=== PATIENT | female | born 1945 | race Caucasian/White ===

== ENCOUNTER → 2017-04-23 | Day surgery (SDC) | payer OTHER ==
[2017-04-17 10:01] VITALS: BMI 42.0
[~2017-04-23] VITALS: Ht 157.5 cm; Wt 104.5 kg
[~2017-04-23] MED LIST: CALC0.5C2 PO; CARB25TA7 PO; CHOL100010 PO; CMD5 PO; DILT120T8 PO; DVN80 PO; ESCI10TA17 PO; FRS/40 PO; HYDR-4079 PO; LIDOCAINE HCL 2% 2 ML VIAL (20MG/ML) ONE; LORA-741 PO; LPT/40 PO; POTA20TA16 PO; PROPOFOL IV EMULSION 10 MG/ML 20 ML VIAL IV ONE; RALO60TA12 PO; SODIUM CHLORIDE 0.9% 500ML 500 ML IV ONE; WARF5TAB7 PO
[2017-04-23 10:31] VITALS: Ht 157.5 cm; Wt 104.5 kg
--- NOTE | 2017-04-23 10:51 | Endo History and Physical ---
History & Physical Date of Service: Apr 23, 2017. Chief Complaint: hx polyps Referring Physician: Dr. Baez History of Present Illness h/o polyps Past Surgical History Hx Cardiac Surgery: No Hx Internal Defibrillator: No Hx Pacemaker: No Hx Abdominal Surgery: No Hx of Implantable Prosthesis: No Hx Post-Op Nausea and Vomiting: No Hx Cancer Surgery: No Hx Thoracic Surgery: No Hx Orthopedic: No Hx Urinary Tract Surgery: No Family History None Social History Smoking Status: Never Smoker Hx Substance Use: No Hx Alcohol Use: No Allergies Coded Allergies: Pramipexole (Unverified Allergy, Unknown, HALLUCINATIONS, 04/23/17) Current Medications Reported Home Medications Medications Dose Route/Sig Max Daily Dose Days Date Category Dose Instructions [place] 10MG/325MG (Acetaminophen/Hydrocodone Bitart) Tab 1 Tab PO Q4H PRN 04/17/17 Reported PRN PAIN Vitamin D (Cholecalciferol) 1,000 Unit Tab 1 Tab PO BID 04/17/17 Reported Sinemet 25MG/250MG (Carbidopa-Levodopa) 1 Tab Tab 1 Tab PO TID 04/17/17 Reported Lipitor (Atorvastatin) 40 Mg Tab 2 Tabs PO HS 04/17/17 Reported Diovan (Valsartan) 80 Mg Tab 80 Mg PO NOON 04/17/17 Reported Cardizem (Diltiazem Hcl) 120 Mg Tab 1 Tab PO NOON 04/17/17 Reported Lasix (Furosemide) 40 Mg Tab 40 Mg PO NOON 04/17/17 Reported Klor-Con (Potassium Chloride) 20 Meq Tabcr 10 Meq PO NOON 04/17/17 Reported Rocaltrol (Calcitriol) 0.5 Mcg Cap 1 Tab PO NOON 04/17/17 Reported Lexapro (Escitalopram Oxalate) 10 Mg Tab 10 Mg PO QAM 04/17/17 Reported Evista (Raloxifene Hcl) 60 Mg Tab 60 Mg PO NOON 04/17/17 Reported Jantoven (Warfarin Sodium) 5 Mg Tab 0.5 Tab PO 6XWK 04/17/17 Reported SUN,TUES,WED,THURS,FRI,SAT Coumadin (Warfarin Sod) 5 Mg Tab 1 Tab PO Saturday04/17/17 Reported Ativan (Lorazepam) 0.5 Mg Tab 0.5 Mg PO BID 04/17/17 Reported Vital Signs Weight (Kilograms): 104.55 Height (Feet): 5 Height (Inches): 2 Date Time Temp Pulse Resp B/P (MAP) Pulse Ox O2 Delivery O2 Flow Rate FiO2 04/23/17 10:36 36.4 98 20 152/64 (93) 94 Room Air Physical Exam General Appearance: WD/WN, no apparent distress Assessment and Plan colonoscopy today
--- NOTE | 2017-04-23 11:31 | GI REPORT ---
Procedure Date: 04/23/2017 10:49 AM Procedure: Colonoscopy Indications: Surveillance: Personal history of adenomatous polyps on last colonoscopy 5 years ago Medicines: Propofol per Anesthesia Complications: No immediate complications. Estimated blood loss: Minimal. Estimated Blood Loss: Estimated blood loss was minimal. Procedure: Pre-Anesthesia Assessment: - Prior to the procedure, a History and Physical was performed, and patient medications, allergies and sensitivities were reviewed. The patient's tolerance of previous anesthesia was reviewed. - The risks and benefits of the procedure and the sedation options and risks were discussed with the patient. All questions were answered and informed consent was obtained. - Patient identification and proposed procedure were verified prior to the procedure by the physician and the nurse. The procedure was verified in the pre-procedure area in the procedure room. - Mental Status Examination: alert and oriented. Airway Examination: normal oropharyngeal airway and neck mobility. Respiratory Examination: clear to auscultation. CV Examination: normal. Abdominal Examination: bowel sounds present, abdomen soft and non-tender, no masses or organomegaly noted. - ASA Grade Assessment: III - A patient with severe systemic disease. After I obtained informed consent, the scope was passed under direct vision. Throughout the procedure, the patient's blood pressure, pulse, and oxygen saturations were monitored continuously. The On-site loaner was introduced through the anus and advanced to the terminal ileum. The colonoscopy was performed without difficulty. The patient tolerated the procedure well. The quality of the bowel preparation was good. Findings: The perianal and digital rectal examinations were normal. Pertinent negatives include normal sphincter tone and no palpable rectal lesions. The terminal ileum appeared normal. A 5 mm polyp was found in the transverse colon. The polyp was sessile. The polyp was removed with a cold snare. Resection and retrieval were complete. Verification of patient identification for the specimen was done by the physician and nurse using the patient's name and date. Estimated blood loss was minimal. A 3 mm polyp was found in the rectum. The polyp was sessile. The polyp was removed with a cold snare. Resection and retrieval were complete. Verification of patient identification for the specimen was done by the physician and nurse using the patient's name and date. Estimated blood loss was minimal. The retroflexed view of the distal rectum and anal verge was normal and showed no anal or rectal abnormalities. Impression: - The examined portion of the ileum was normal. - One 5 mm polyp in the transverse colon, removed with a cold snare. Resected and retrieved. - One 3 mm polyp in the rectum, removed with a cold snare. Resected and retrieved. - The distal rectum and anal verge are normal on retroflexion view. Recommendation: - Await pathology results. - Repeat colonoscopy for surveillance based on pathology results. - OK to resume Coumadin and aspirin this evening. - Return to referring physician as previously scheduled. - Discharge patient to home. Jennifer Jaramillo D.O. Jennifer Jaramillo, 04/23/2017 11:31:00 AM This report has been signed electronically. Note Initiated On: 04/23/2017 10:49 AM I attest to the content of the Intraoperative Record and orders documented therein, exceptions below
--- NOTE | 2017-04-23 11:32 | Discharge Instructions ---
Endoscopy Patient Instructions Date / Procedure(s) Performed Apr 23, 2017. Colonoscopy Allergy Information Coded Allergies: Pramipexole (Unverified Allergy, Unknown, HALLUCINATIONS, 04/23/17) Discharge Date / Findings Apr 23, 2017. 2 small polyps Medication Instructions Stopped Medication(s): stopped Coumadin 5 days ago Restart Stopped Medication(s): OK to resume all home medications as above Provider Instructions Activity Restrictions - No exercising or heavy lifting for 24 hours. - Do not drink alcohol the day of the procedure. - Do not drive a car or operate machinery until the day after the procedure. - Do not make any important decisions or sign important papers in 24 hours after the procedure. Following Day: - Return to full activity which may include returning to work/school. Diet Start your diet with liquids and light foods (jello, soup, juice, toast). Then eat your usual diet if not nauseated. Treatment For Common After Affects For mild abdominal pain, bloating, or excessive gas: - Rest - Eat lightly - Lie on right side Follow-Up Information Follow-up with Dr. Baez as scheduled Anesthesia Information What You Should Know You have had a procedure that required some medicine to reduce anxiety and discomfort. This treatment is called moderate sedation. After receiving the treatment, you may be sleepy, but you will be able to breathe on your own. The effects of the treatment may last for several hours. Follow these instructions along with Activity/Diet recommendations noted above: * Do NOT do anything where dizziness or clumsiness would be dangerous. * Rest quietly at home today, then you can be up and about tomorrow. * Have a responsible person stay with you the rest of today. * You may have had an I.V. today. If so, you may take the dressing off later today. Recommendations Call your doctor if: * Trouble breathing * Continuous vomiting for more than 24 hours * Temperature above 101 degrees * Severe abdominal pain or bloating * Pain not relieved by pain medicine ordered * There is increased drainage or redness from any incision * A large amount of rectal bleeding greater than 2-3 tablespoons. (If you had a polyp/s removed or have hemorrhoids, a small amount of blood - from the rectum is to be expected.) * You have any unanswered questions or concerns. IN THE EVENT OF A SERIOUS EMERGENCY, GO TO THE NEAREST EMERGENCY ROOM Your discharge instructions were prepared by provider Jennifer Jaramillo. Patient Instructions Signature Page Gabrielle Liao Patient (or Guardian) Signature/Date: I have read and understand the instructions given to me by my caregivers. Caregiver/RN/Doctor Signature/Date: The above-named patient and/or guardian has received patient instructions on this date. + Original Patient Signature Page (only) stays with chart. Please make copy for patient.
--- NOTE | 2017-04-23 11:49 | Anesthesiology Progress Note ---
Anesthesia Post Op Note Date & Time Apr 23, 2017 at 11:48 Vital Signs Pain Intensity: 0 Vital Signs Past 12 Hours Date Time Temp Pulse Resp B/P (MAP) Pulse Ox O2 Delivery O2 Flow Rate FiO2 04/23/17 11:27 82 16 127/65 (85) 97 Room Air 04/23/17 10:36 36.4 98 20 152/64 (93) 94 Room Air Notes Mental Status: alert / awake / arousable, participated in evaluation Pt Amnestic to Procedure: Yes Nausea / Vomiting: adequately controlled Pain: adequately controlled Airway Patency, RR, SpO2: stable & adequate BP & HR: stable & adequate Hydration State: stable & adequate Anesthetic Complications: no major complications apparent
[2017-04-23 11:57] VITALS: BP 156/90; PULSE 86; O2SAT 96
== END | disposition home or self-care (01) ==
LOC: C.GI 10:08
PROVIDERS: ATTEND Internal Medicine
DX: Z12.11 Encounter for screening for malignant neoplasm of colon (principal); D12.3 Benign neoplasm of transverse colon; D12.8 Benign neoplasm of rectum; Z86.010 Personal history of colon polyps; Z79.01 Long term (current) use of anticoagulants; Z79.899 Other long term (current) drug therapy

== ENCOUNTER 2017-06-11 11:51 | Emergency (ER) | payer OTHER ==
[~2017-06-11] VITALS: Ht 157.5 cm; Wt 105.0 kg
[~2017-06-11 11:51] MED LIST changes: -LIDOCAINE HCL 2% 2 ML VIAL (20MG/ML) ONE; -PROPOFOL IV EMULSION 10 MG/ML 20 ML VIAL IV ONE; -RALO60TA12 PO; +RALO60TA30 PO; -SODIUM CHLORIDE 0.9% 500ML 500 ML IV ONE
[2017-06-11 11:57] VITALS: TEMP 37; Ht 157.5 cm; Wt 105.0 kg
[2017-06-11 12:35] LABS: BASO % 0.7 %; BASO ABS # 0.05 K/uL (0-0.2); COMPLETE YES; EOS % 0.4 %; HEMATOCRIT 45.5 % (37-47); IG% 0.1 %; LYMPH % 15.2 %; LYMPH ABS # 1.06 K/uL (1.2-3.4); MEAN CELL VOLUME 86.3 fL (80-100); MEAN CORPUSCULAR HEMOGLOBIN 28.5 pg (25-34); MEAN PLATELET VOLUME 10.5 fL (7.4-10.4); MONO % 9.6 %; PLATELET COUNT 160 K/uL (130-400); RED BLOOD COUNT 5.27 M/uL (4.2-5.4); WHITE BLOOD COUNT 6.98 K/uL (4.8-10.8)
[2017-06-11 12:45] LABS: INR 2.5 (0.9-1.1); PROTHROMBIN TIME (PATIENT) 27.3 SECONDS (9.0-12.0)
--- NOTE | 2017-06-11 12:50 | DIAGNOSTIC IMAGING REPORT ---
CT HEAD WITHOUT CONTRAST (CT) CLINICAL HISTORY: Head pain status post trauma COMPARISON STUDY: No previous studies for comparison. TECHNIQUE: Axial CT of the brain is performed from the vertex to the skull base. IV contrast was not administered for this examination. A dose lowering technique was utilized adhering to the principles of ALARA. CT DOSE: 1115.43 mGy.cm FINDINGS: No intra or extra-axial mass lesions are visualized. There is no CT evidence of acute cortical infarction. There is no evidence of midline shift. There is no acute hemorrhage. No calvarial fractures are visualized. There are patchy white matter hypodensities likely on a small vessel basis. There is no evidence of pathologic ventricular dilatation. There is no evidence of acute sinusitis IMPRESSION: No acute intracranial findings Electronically signed by: Sanket Roberts M.D. 06/11/2017 12:49 PM Dictated Date/Time: 06/11/2017 12:48 PM
[2017-06-11 12:51] LABS: BUN/CREATININE RATIO 14.3 (10-20); CALCIUM 9.2 mg/dl (8.5-10.1); CREATININE 1.47 mg/dl (0.60-1.20); POTASSIUM 4.1 mmol/L (3.5-5.1)
--- NOTE | 2017-06-11 13:17 | DIAGNOSTIC IMAGING REPORT ---
CERVICAL SPINE CT CT DOSE: HISTORY: fall hit head on coumadin TECHNIQUE: Multiaxial CT images of the cervical spine were performed and reformatted in the sagittal and coronal plane without the use of contrast. A dose lowering technique was utilized adhering to the principles of ALARA. COMPARISON: None. FINDINGS: No fractures. No subluxation. Prevertebral soft tissues and the C1-C2 interval are intact. No pneumothorax. Mild dextroscoliosis which may be positional. IMPRESSION: No fractures within the cervical spine. Electronically signed by: Carlos Vera M.D. 06/11/2017 1:16 PM Dictated Date/Time: 06/11/2017 1:05 PM
[2017-06-11] MEDS ORDERED: MoRPHine SULFATE 4 MG/ML 1 ML CARP\\VIAL IV STA (13:25)
--- NOTE | 2017-06-11 13:32 | DIAGNOSTIC IMAGING REPORT ---
LEFT KNEE 3 VIEWS CLINICAL HISTORY: Fall with left knee pain. FINDINGS: AP, crosstable lateral, and sunrise views of the left knee are obtained. No prior studies are available for comparison at the time of dictation. The skeletal structures are osteopenic. No fracture is seen. There is moderate tricompartmental degenerative joint space narrowing, greatest in the medial and patellofemoral compartments. There are large patellar enthesophytes as well as large marginal osteophytes. A small joint effusion is identified. The overlying soft tissues are within normal limits. IMPRESSION: 1. Small joint effusion with no radiographic evidence of left knee fracture. 2. Osteopenia and arthritic change as above. Electronically signed by: Omar Hill M.D. 06/11/2017 1:31 PM Dictated Date/Time: 06/11/2017 1:30 PM
--- NOTE | 2017-06-11 13:37 | DIAGNOSTIC IMAGING REPORT ---
PELVIS 1 OR 2 VIEW ROUTINE CLINICAL HISTORY: l knee pain pain COMPARISON: 03/26/2015 DISCUSSION: Moderate generalized degenerative change. No well-defined acute bony abnormality. No evidence for acetabular protrusion. Scoliosis of the lumbar spine. There is no evidence for soft tissue swelling. IMPRESSION: Considerable degenerative change. No acute process. The above report was generated using voice recognition software. It may contain grammatical, syntax or spelling errors. Electronically signed by: Cirilo Cotton M.D. 06/11/2017 1:35 PM Dictated Date/Time: 06/11/2017 1:35 PM
--- NOTE | 2017-06-11 13:43 | DIAGNOSTIC IMAGING REPORT ---
LEFT FEMUR 5 VIEWS HISTORY: Left leg pain. Fall. COMPARISON: None. FINDINGS: There is no fracture or dislocation. Soft tissues are unremarkable. Advanced degenerative changes within the left knee. IMPRESSION: No fracture or dislocation within the left femur. Electronically signed by: Carlos Vera M.D. 06/11/2017 1:42 PM Dictated Date/Time: 06/11/2017 1:35 PM
[2017-06-11 14:11] VITALS: BP 150/79; PULSE 98; O2SAT 96
--- NOTE | 2017-06-11 14:24 | EMERGENCY ROOM VISIT NOTE ---
History Report prepared by Hiral: Dianne Dial Under the Supervision of: Dr. Johnathon Encarnacion D.O. First contact with patient: 12:02 Chief Complaint: FALL Stated Complaint: FALL-LEFT KNEE PAIN History of Present Illness The patient is a 71 year old female who presents to the Emergency Room with complaints of a sudden fall that occurred around 0800 this morning. She currently rates her discomfort as an 8/10 in severity. The patient states that she fell up against chairs after loosing her balance. She states that she hit her head and her left hip. The patient states that she is on Coumadin for atrial fibrillation. She reports difficulty with weight bearing due to her pain. The patient reports left knee and left hip pain. She reports a history of Parkinson's. The patient denies headache, change in vision, fevers, neck pain, chest pain, shortness of breath, abdominal pain, nausea, vomiting, diarrhea, pain with urination, and melena. Source of History: patient Onset: 0800 this morning Position: other (global) Symptom Intensity: 8/10 Quality: other (fall) Timing: other (sudden) Note: Associated Symptoms: left knee pain, left hip pain Review of Systems See HPI for pertinent positives & negatives. A total of 10 systems reviewed and were otherwise negative. Past Medical & Surgical Medical Problems: (1) Atrial fibrillation (2) Diabetes (3) Hypertension (4) Parkinsons disease Family History Cancer Diabetes mellitus FH: heart disease Hypertension Social History Smoking Status: Never Smoker Smokeless Tobacco Use: No Alcohol Use: none Marital Status: Housing Status: lives with family Occupation Status: retired Current/Historical Medications Scheduled Atorvastatin (Lipitor), 2 TABS PO HS Calcitriol (Rocaltrol), 1 TAB PO NOON Carbidopa-Levodopa (Sinemet 25MG/250MG), 1 TAB PO QID Cholecalciferol (Vitamin D), 1 TAB PO BID Diltiazem Hcl (Cardizem), 1 TAB PO NOON Escitalopram (Lexapro), 10 MG PO QAM Furosemide (Lasix), 40 MG PO NOON Lorazepam (Ativan), 0.5 MG PO BID Potassium Ext Rel (Klor-Con), 10 MEQ PO NOON Raloxifene Hcl (Evista), 60 MG PO NOON Valsartan (Diovan), 80 MG PO NOON Warfarin Sod (Coumadin), 1 TAB PO SATURDAY Warfarin Sod (Jantoven), 0.5 TAB PO 6XWK Scheduled PRN Hydrocodone/Acetaminophen 10MG/325MG ([place] 10MG/325MG), 1 TAB PO Q4H PRN for Pain Allergies Coded Allergies: Pramipexole (Unverified Allergy, Unknown, HALLUCINATIONS, 06/11/17) Physical Exam Vital Signs Date Time Temp Pulse Resp B/P (MAP) Pulse Ox O2 Delivery O2 Flow Rate FiO2 06/11/17 14:11 98 20 150/79 96 06/11/17 13:33 92 20 130/73 93 Room Air 06/11/17 11:57 37.0 95 17 126/60 91 Room Air Physical Exam GENERAL: alert, well appearing, well nourished, no distress, non-toxic HEAD: Small contusion to posterior occiput. EYE EXAM: normal conjunctiva, PERRL and EOM's grossly intact OROPHARYNX: no exudate, no erythema, lips, buccal mucosa, and tongue normal and mucous membranes are moist EARS: TMs clear b/l NECK: supple, no nuchal rigidity, no adenopathy, non-tender CHEST: stable to compression anteriorly and posteriorly LUNGS: clear to auscultation. Normal chest wall mechanics HEART: no murmurs, S1 normal and S2 normal ABDOMEN: abdomen soft, non-tender, normo-active bowel sounds, no masses, no rebound or guarding. PELVIS: stable to compression anteriorly and posteriorly BACK: Back is symmetrical on inspection and there is no deformity, no midline tenderness, no CVA tenderness. UPPER EXTREMITIES: Abrasion to the left dorsal/medial forearm. full active and passive range of motion of all joints without tenderness to palpation LOWER EXTREMITIES: Mild bruising over right medial knee. full active and passive range of motion of all joints without tenderness to palpation with the exception of the right knee. able to take several steps with right leg/normally uses walker and scooter NEURO EXAM: Normal sensorium, cranial nerves II-XII grossly intact, normal speech, no gross weakness of arms, no gross weakness of legs. GCS: 15. Medical Decision & Procedures ER Provider Diagnostic Interpretation: Radiology results as stated below per my review and the radiologist's interpretation: CT HEAD WITHOUT CONTRAST (CT) CLINICAL HISTORY: Head pain status post trauma COMPARISON STUDY: No previous studies for comparison. TECHNIQUE: Axial CT of the brain is performed from the vertex to the skull base. IV contrast was not administered for this examination. A dose lowering technique was utilized adhering to the principles of ALARA. CT DOSE: 1115.43 mGy.cm FINDINGS: No intra or extra-axial mass lesions are visualized. There is no CT evidence of acute cortical infarction. There is no evidence of midline shift. There is no acute hemorrhage. No calvarial fractures are visualized. There are patchy white matter hypodensities likely on a small vessel basis. There is no evidence of pathologic ventricular dilatation. There is no evidence of acute sinusitis IMPRESSION: No acute intracranial findings Electronically signed by: Sanket Roberts M.D. 06/11/2017 12:49 PM Dictated Date/Time: 06/11/2017 12:[address] DOSE: HISTORY: fall hit head on coumadin TECHNIQUE: Multiaxial CT images of the cervical spine were performed and reformatted in the sagittal and coronal plane without the use of contrast. A dose lowering technique was utilized adhering to the principles of ALARA. COMPARISON: None. FINDINGS: No fractures. No subluxation. Prevertebral soft tissues and the C1-C2 interval are intact. No pneumothorax. Mild dextroscoliosis which may be positional. IMPRESSION: No fractures within the cervical spine. Electronically signed by: Carlos Vera M.D. 06/11/2017 1:16 PM Dictated Date/Time: 06/11/2017 1:05 PM PELVIS 1 OR 2 VIEW ROUTINE CLINICAL HISTORY: l knee pain pain COMPARISON: 03/26/2015 DISCUSSION: Moderate generalized degenerative change. No well-defined acute bony abnormality. No evidence for acetabular protrusion. Scoliosis of the lumbar spine. There is no evidence for soft tissue swelling. IMPRESSION: Considerable degenerative change. No acute process. The above report was generated using voice recognition software. It may contain grammatical, syntax or spelling errors. Electronically signed by: Cirilo Cotton M.D. 06/11/2017 1:35 PM Dictated Date/Time: 06/11/2017 1:35 PM LEFT KNEE 3 VIEWS CLINICAL HISTORY: Fall with left knee pain. FINDINGS: AP, crosstable lateral, and sunrise views of the left knee are obtained. No prior studies are available for comparison at the time of dictation. The skeletal structures are osteopenic. No fracture is seen. There is moderate tricompartmental degenerative joint space narrowing, greatest in the medial and patellofemoral compartments. There are large patellar enthesophytes as well as large marginal osteophytes. A small joint effusion is identified. The overlying soft tissues are within normal limits. IMPRESSION: 1. Small joint effusion with no radiographic evidence of left knee fracture. 2. Osteopenia and arthritic change as above. Electronically signed by: Omar Hill M.D. 06/11/2017 1:31 PM Dictated Date/Time: 06/11/2017 1:30 PM LEFT FEMUR 5 VIEWS HISTORY: Left leg pain. Fall. COMPARISON: None. FINDINGS: There is no fracture or dislocation. Soft tissues are unremarkable. Advanced degenerative changes within the left knee. IMPRESSION: No fracture or dislocation within the left femur. Electronically signed by: Carlos Vera M.D. 06/11/2017 1:42 PM Dictated Date/Time: 06/11/2017 1:35 PM Laboratory Results 06/11/17 12:25 Red Blood Count 5.27, Mean Corpuscular Volume 86.3, Mean Corpuscular Hemoglobin 28.5, Mean Corpuscular Hemoglobin Concent 33.0, Mean Platelet Volume 10.5, Neutrophils (%) (Auto) 74.0, Lymphocytes (%) (Auto) 15.2, Monocytes (%) (Auto) 9.6, Eosinophils (%) (Auto) 0.4, Basophils (%) (Auto) 0.7, Neutrophils # (Auto) 5.16, Lymphocytes # (Auto) 1.06, Monocytes # (Auto) 0.67, Eosinophils # (Auto) 0.03, Basophils # (Auto) 0.05 06/11/17 12:25 Test 06/11/17 12:25 White Blood Count 6.98 K/uL (4.8-10.8) Red Blood Count 5.27 M/uL (4.2-5.4) Hemoglobin 15.0 g/dL (12.0-16.0) Hematocrit 45.5 % (37-47) Mean Corpuscular Volume 86.3 fL (80-100) Mean Corpuscular Hemoglobin 28.5 pg (25-34) Mean Corpuscular Hemoglobin Concent 33.0 g/dl (32-36) Platelet Count 160 K/uL (130-400) Mean Platelet Volume 10.5 fL (7.4-10.4) Neutrophils (%) (Auto) 74.0 % Lymphocytes (%) (Auto) 15.2 % Monocytes (%) (Auto) 9.6 % Eosinophils (%) (Auto) 0.4 % Basophils (%) (Auto) 0.7 % Neutrophils # (Auto) 5.16 K/uL (1.4-6.5) Lymphocytes # (Auto) 1.06 K/uL (1.2-3.4) Monocytes # (Auto) 0.67 K/uL (0.11-0.59) Eosinophils # (Auto) 0.03 K/uL (0-0.5) Basophils # (Auto) 0.05 K/uL (0-0.2) RDW Standard Deviation 49.6 fL (36.4-46.3) RDW Coefficient of Variation 15.6 % (11.5-14.5) Immature Granulocyte % (Auto) 0.1 % Immature Granulocyte # (Auto) 0.01 K/uL (0.00-0.02) Prothrombin Time 27.3 SECONDS (9.0-12.0) Prothromb Time International Ratio 2.5 (0.9-1.1) Anion Gap 8.0 mmol/L (3-11) Est Creatinine Clear Calc Drug Dose 41.1 ml/min Estimated GFR () 41.8 Estimated GFR (Non- 36.0 BUN/Creatinine Ratio 14.3 (10-20) Calcium Level 9.2 mg/dl (8.5-10.1) Total Bilirubin 1.3 mg/dl (0.2-1) Direct Bilirubin 0.3 mg/dl (0-0.2) Aspartate Amino Transf (AST/SGOT) 23 U/L (15-37) Alanine Aminotransferase (ALT/SGPT) 9 U/L (12-78) Alkaline Phosphatase 75 U/L (45-117) Total Protein 7.2 gm/dl (6.4-8.2) Albumin 3.5 gm/dl (3.4-5.0) Lipase 173 U/L (73-393) Laboratory results per my review. Medications Administered Medications (Trade) Dose Ordered Sig/Tamela Route Start Time Stop Time Status Last Admin Dose Admin Morphine Sulfate (MoRPHine SULFATE INJ) 4 mg NOW STAT IV 06/11/17 13:25 06/11/17 13:26 DC 06/11/17 13:32 4 MG ED Course ED COURSE: Vital signs were reviewed and showed normal vitals The patients medical record was reviewed The above diagnostic studies were performed and reviewed. ED treatments and interventions as stated above. 1204: The patient was evaluated in room C3. A complete history and physical examination was performed. 1310: I reevaluated the patient and she is resting comfortably. 1325: I reevaluated the patient and she is still experiencing pain and requesting pain medications. Ordered Morphine Sulfate 4 mg IV. 1349: Upon reevaluation, the patient is resting comfortably.I discussed my findings with the patient and she understands and agrees with the treatment plan. Based on the patients age, coexisting illnesses, exam and lab findings the decision to treat as an outpatient was made. The patient remained stable while under my care. The patient appeared well at the time of discharge. Medical Decision Differential diagnoses include major intracranial, cervical, spinal, thoracic, abdominal, pelvic and neurologic injury. Fracture, contusion, sprain, strain, laceration, abrasions included as well. Patient is a 71-year-old female who presents to ER following a mechanical fall for left knee pain. Patient did hit her head as she is on Coumadin. CBC along with BMP, LFTs and lipase was unremarkable. T bili was slightly elevated at 1.3. No abdominal complaints. INR therapeutic at 2.5. CT head and cervical spine was negative. X-rays of the pelvis and left femur/knee were negative as well. Patient was able to take several steps with assistance which is close to her baseline. She was discharged follow-up as an outpatient as both family and patient wanted this requested to go home. Discussed with Pt concerning signs and symptoms to watch out for. Pt was instructed to follow up with their PCP and discussed with the patient their option to return to the ED at anytime for persistent or worsening symptoms. The appropriate anticipatory guidance and out- patient management, including indications for return to the emergency department , were explained at length to the patient and understood. Medication Reconcilliation Current Medication List: was personally reviewed by me Blood Pressure Screening Patient's blood pressure: Normal blood pressure Blood pressure disposition: Did not require urgent referral Impression Primary Impression: Fall Additional Impression: Contusion of multiple sites Scribe Attestation The scribe's documentation has been prepared under my direction and personally reviewed by me in its entirety. I confirm that the note above accurately reflects all work, treatment, procedures, and medical decision making performed by me. Departure Information Dispostion Home / Self-Care Referrals Titi Baez D.O. (PCP) Forms HOME CARE DOCUMENTATION FORM, IMPORTANT VISIT INFORMATION Patient Instructions ED Contusion Lower Ext, My [facility] Additional Instructions Please follow up with your primary care doctor with in the next 24 hours. Any worsening of your symptoms, please return to the ED immediately. This includes any fevers greater than 100.4, worsening pain, chest pain, shortness breath, persistent nausea, vomiting, unable to eat or drink, or any other concerning signs or symptoms from your standpoint. Also if you have any weakness, worsening pain or continued pain over the next 3- 5 days please have repeat x-rays as there is always a chance of missing a fracture. You were given medications during this visit that will inhibit your ability to drive, operate machinery and work. Please do NOT drive, operate machinery, drink alcohol or work for the next 12hrs. Problem Qualifiers Primary Impression: Fall Encounter type: initial encounter Qualified Codes: W19.XXXA - Unspecified fall, initial encounter
== END 2017-06-11 14:11 | disposition home or self-care (01) ==
LOC: C.EDB 11:52 → C.EDC 14:11
DX: S80.01XA Contusion of right knee, initial encounter (principal); S09.90XA Unspecified injury of head, initial encounter; W18.09XA Striking against other object with subsequent fall, initial encounter; M25.562 Pain in left knee; M25.462 Effusion, left knee; R51 Headache; I10 Essential (primary) hypertension; I48.91 Unspecified atrial fibrillation; E11.9 Type 2 diabetes mellitus without complications; G20 Parkinson's disease; Z79.01 Long term (current) use of anticoagulants; Z79.899 Other long term (current) drug therapy; Z88.8 Allergy status to other drugs, medicaments and biological substances; Z80.9 Family history of malignant neoplasm, unspecified; Z83.3 Family history of diabetes mellitus; Z82.49 Family history of ischemic heart disease and other diseases of the circulatory system

== ENCOUNTER 2017-08-04 12:57 | Emergency (ER) | payer OTHER ==
[~2017-08-04] VITALS: Ht 157.5 cm; Wt 105.0 kg
[2017-08-04 13:04] VITALS: TEMP 36.7; Ht 157.5 cm; Wt 105.0 kg
[2017-08-04] MEDS ORDERED: ONDANSETRON INJ 2 MG/ML 2 ML VIAL IV STA (14:10)
[2017-08-04] MEDS ORDERED: SODIUM CHLORIDE 0.9% 1000ML 1,000 ML IV STA (14:10)
[2017-08-04] MEDS ORDERED: MoRPHine SULFATE 4 MG/ML 1 ML CARP\\VIAL IV STA (14:10)
[2017-08-04 14:41] LABS: BASO % 0.4 %; BASO ABS # 0.03 K/uL (0-0.2); EOS % 0.4 %; EOS ABS # 0.03 K/uL (0-0.5); HEMATOCRIT 49.5 % (37-47); HEMOGLOBIN 16.4 g/dL (12.0-16.0); IG# 0.02 K/uL (0.00-0.02); LYMPH % 18.3 %; LYMPH ABS # 1.47 K/uL (1.2-3.4); MEAN CORPUSCULAR HEMOGLOBIN 28.8 pg (25-34); MEAN CORPUSCULAR HGB CONC 33.1 g/dl (32-36); MEAN PLATELET VOLUME 10.8 fL (7.4-10.4); NEUT % 70.7 %; NEUT ABS # 5.69 K/uL (1.4-6.5); PLATELET COUNT 183 K/uL (130-400); RED CELL DISTRIBUTION WIDTH CV 15.7 % (11.5-14.5); RED CELL DISTRIBUTION WIDTH SD 50.1 fL (36.4-46.3); WHITE BLOOD COUNT 8.04 K/uL (4.8-10.8)
[2017-08-04 14:49] LABS: INR 3.3 (0.9-1.1); PTT PATIENT 36.9 SECONDS (21.0-31.0)
[2017-08-04] MEDS ORDERED: DILT120C43 PO (14:52)
[2017-08-04] MEDS ORDERED: TIZA4CAP PO (14:52)
[2017-08-04 15:03] LABS: ALBUMIN 3.8 gm/dl (3.4-5.0); CALCIUM 9.1 mg/dl (8.5-10.1); CREATININE 1.18 mg/dl (0.60-1.20); POTASSIUM 3.6 mmol/L (3.5-5.1)
[2017-08-04 15:06] LABS: TOTAL PROTEIN 7.9 gm/dl (6.4-8.2)
[2017-08-04] MEDS ORDERED: OPTIRAY 320 IV PRN (15:45)
--- NOTE | 2017-08-04 15:59 | DIAGNOSTIC IMAGING REPORT ---
ABDOMEN AND PELVIS CT WITH IV CONTRAST CT DOSE: 890.27 mGy.cm HISTORY: Right lower quadrant abdominal pain. TECHNIQUE: Multiaxial CT images of the abdomen and pelvis were performed following the use of intravenous contrast. A dose lowering technique was utilized adhering to the principles of ALARA. COMPARISON STUDY: None. FINDINGS: Mild interstitial thickening at the lung bases which is likely chronic. No fractures within the visualized osseous structures. There are 2 hypodense lesions within the right hepatic lobe with the largest measuring 2 cm. These likely represent cysts. The the pancreas and left adrenal gland are unremarkable. A few small gallstones. No gallbladder wall thickening. A few subcentimeter hypodense lesions within the kidneys are too small to characterize but favor cysts. No hydronephrosis. Mild nodular thickening within the right adrenal gland. Punctate calcified granuloma within the spleen. No retroperitoneal lymphadenopathy. The bladder is unremarkable. The uterus and bilateral adnexa are within normal limits. Extensive colonic diverticulosis. No bowel wall thickening or obstruction. Normal appendix. Mild bilateral perinephric edema is likely chronic. IMPRESSION: 1. No bowel wall thickening or obstruction. 2. Normal appendix. 3. Colonic diverticulosis. 4. No hydronephrosis. 5. Cholelithiasis. No gallbladder wall thickening. Electronically signed by: Carlos Vera M.D. 08/04/2017 3:57 PM Dictated Date/Time: 08/04/2017 3:50 PM
[2017-08-04 16:39] VITALS: BP 166/105; PULSE 78; O2SAT 96
--- NOTE | 2017-08-04 17:34 | EMERGENCY ROOM VISIT NOTE ---
History Report prepared by Hiral: Jeyson Torre Under the Supervision of: Dr. Bonifacio Navarrete M.D. First contact with patient: 14:04 Chief Complaint: FLANK PAIN Stated Complaint: PAIN IN RIGHT SIDE History of Present Illness The patient is a 71 year old female who presents to the Emergency Room with complaints of persistent right lower abdominal pain starting around 0830 this morning which she describes as sharp. The patient denies any hematochezia, melena, chest pain, shortness of breath, cough, pain with urination, hematuria, nausea, and vomiting. She notes that she has a history of diabetes, hypertension , hyperlipidemia, and Parkinson's. The patient notes that she did not take her medications this morning. She reports that she has no history of abdominal surgeries in the past. The patient states that she is currently on Coumadin, and she denies any recent falls. She notes that she usually takes her medications at noon. Source of History: patient Onset: 0830 this morning Position: abdomen (RLQ) Quality: sharp Timing: other (persistent ) Associated Symptoms: No cough, No chest pain, No SOB, No nausea, No vomiting , No melena, No hematochezia, No urinary symptoms Review of Systems See HPI for pertinent positives and negatives. A total of ten systems were reviewed and were otherwise negative. Past Medical & Surgical Medical Problems: (1) Atrial fibrillation (2) Diabetes (3) Hypertension (4) Parkinsons disease Family History Cancer Diabetes mellitus FH: heart disease Hypertension Social History Smoking Status: Never Smoker Alcohol Use: none Marital Status: Housing Status: lives with family Occupation Status: retired Current/Historical Medications Scheduled Atorvastatin (Lipitor), 80 MG PO HS Calcitriol (Rocaltrol), 0.5 MCG PO NOON Carbidopa-Levodopa (Sinemet 25MG/250MG), 1 TAB PO QID Cholecalciferol (Vitamin D), 1,000 UNITS PO BID Diltiazem Hcl Coated Beads (Cartia Xt), 120 MG PO DAILY Escitalopram (Lexapro), 10 MG PO QAM Furosemide (Lasix), 40 MG PO NOON Lorazepam (Ativan), 0.5 MG PO BID Potassium Ext Rel (Klor-Con), 10 MEQ PO NOON Raloxifene Hcl (Evista), 60 MG PO NOON Tizanidine (Zanaflex), 4 MG PO BID Valsartan (Diovan), 80 MG PO NOON Warfarin Sod (Coumadin), 5 MG PO WK Warfarin Sod (Jantoven), 2.5 MG PO 6XWK Scheduled PRN Hydrocodone/Acetaminophen 10MG/325MG (Pearson 10MG/325MG), 1 TAB PO Q4H PRN for Pain Allergies Coded Allergies: Pramipexole (Unverified Allergy, Unknown, HALLUCINATIONS, 08/04/17) Physical Exam Vital Signs Date Time Temp Pulse Resp B/P (MAP) Pulse Ox O2 Delivery O2 Flow Rate FiO2 08/04/17 16:39 78 18 166/105 96 08/04/17 15:31 78 18 157/103 98 Room Air 08/04/17 14:27 90 148/104 94 Room Air 08/04/17 13:04 36.7 99 20 196/89 96 Room Air Physical Exam GENERAL: Awake, alert, well-appearing, in no distress HENT: Normocephalic, Atraumatic. no hemotympanum bilaterally, rachel sign negative bilaterally. Oropharynx unremarkable. EYES: Normal conjunctiva. Sclera non-icteric. PERRL bilaterally. EOMI bilaterally. NECK: Supple. No nuchal rigidity. FROM. No JVD. No C-spine tenderness. RESPIRATORY: Clear to auscultation. No wheezes, rhonchi or rales bilaterally. CARDIAC: Regular rate, normal rhythm. Extremities warm and well perfused. Equal palpable radial pulses to the bilateral upper extremities. Equal palpable DP pulses to the bilateral lower extremities. ABDOMEN: Pain on palpation of the right lower quadrant. Soft, non-distended. No rebound or guarding. No masses. Rovsing Negative. RECTAL: Deferred. MUSCULOSKELETAL: Chest examination reveals no tenderness. The back is symmetrical on inspection without obvious abnormality. There is no CVA tenderness to palpation. No joint edema. LOWER EXTREMITIES: Calves are equal size bilaterally and non-tender. No edema. No discoloration. NEURO: Tremor at baseline per the patient. Normal sensorium. No sensory or motor deficits noted. No pronator drift. No facial droop. No dysarthria. SKIN: No rash or jaundice noted. Medical Decision & Procedures ER Provider Diagnostic Interpretation: Radiology results as stated below per my review and radiologist interpretation: ABDOMEN AND PELVIS CT WITH IV CONTRAST CT DOSE: 890.27 mGy.cm HISTORY: Right lower quadrant abdominal pain. TECHNIQUE: Multiaxial CT images of the abdomen and pelvis were performed following the use of intravenous contrast. A dose lowering technique was utilized adhering to the principles of ALARA. COMPARISON STUDY: None. FINDINGS: Mild interstitial thickening at the lung bases which is likely chronic. No fractures within the visualized osseous structures. There are 2 hypodense lesions within the right hepatic lobe with the largest measuring 2 cm. These likely represent cysts. The the pancreas and left adrenal gland are unremarkable. A few small gallstones. No gallbladder wall thickening. A few subcentimeter hypodense lesions within the kidneys are too small to characterize but favor cysts. No hydronephrosis. Mild nodular thickening within the right adrenal gland. Punctate calcified granuloma within the spleen. No retroperitoneal lymphadenopathy. The bladder is unremarkable. The uterus and bilateral adnexa are within normal limits. Extensive colonic diverticulosis. No bowel wall thickening or obstruction. Normal appendix. Mild bilateral perinephric edema is likely chronic. IMPRESSION: 1. No bowel wall thickening or obstruction. 2. Normal appendix. 3. Colonic diverticulosis. 4. No hydronephrosis. 5. Cholelithiasis. No gallbladder wall thickening. Electronically signed by: Carlos Vera M.D. 08/04/2017 3:57 PM Dictated Date/Time: 08/04/2017 3:50 PM Laboratory Results 08/04/17 14:20 Red Blood Count 5.69, Mean Corpuscular Volume 87.0, Mean Corpuscular Hemoglobin 28.8, Mean Corpuscular Hemoglobin Concent 33.1, Mean Platelet Volume 10.8, Neutrophils (%) (Auto) 70.7, Lymphocytes (%) (Auto) 18.3, Monocytes (%) (Auto) 10.0, Eosinophils (%) (Auto) 0.4, Basophils (%) (Auto) 0.4, Neutrophils # (Auto ) 5.69, Lymphocytes # (Auto) 1.47, Monocytes # (Auto) 0.80, Eosinophils # (Auto ) 0.03, Basophils # (Auto) 0.03 08/04/17 14:20 Test 08/04/17 14:10 08/04/17 14:20 Urine Color YELLOW Urine Appearance CLEAR (CLEAR) Urine pH 7.0 (4.5-7.5) Urine Specific Riparius 1.017 (1.000-1.030) Urine Protein NEG (NEG) Urine Glucose (UA) NEG (NEG) Urine Ketones TRACE (NEG) Urine Occult Blood NEG (NEG) Urine Nitrite NEG (NEG) Urine Bilirubin NEG (NEG) Urine Urobilinogen NEG (NEG) Urine Leukocyte Esterase NEG (NEG) White Blood Count 8.04 K/uL (4.8-10.8) Red Blood Count 5.69 M/uL (4.2-5.4) Hemoglobin 16.4 g/dL (12.0-16.0) Hematocrit 49.5 % (37-47) Mean Corpuscular Volume 87.0 fL (80-100) Mean Corpuscular Hemoglobin 28.8 pg (25-34) Mean Corpuscular Hemoglobin Concent 33.1 g/dl (32-36) Platelet Count 183 K/uL (130-400) Mean Platelet Volume 10.8 fL (7.4-10.4) Neutrophils (%) (Auto) 70.7 % Lymphocytes (%) (Auto) 18.3 % Monocytes (%) (Auto) 10.0 % Eosinophils (%) (Auto) 0.4 % Basophils (%) (Auto) 0.4 % Neutrophils # (Auto) 5.69 K/uL (1.4-6.5) Lymphocytes # (Auto) 1.47 K/uL (1.2-3.4) Monocytes # (Auto) 0.80 K/uL (0.11-0.59) Eosinophils # (Auto) 0.03 K/uL (0-0.5) Basophils # (Auto) 0.03 K/uL (0-0.2) RDW Standard Deviation 50.1 fL (36.4-46.3) RDW Coefficient of Variation 15.7 % (11.5-14.5) Immature Granulocyte % (Auto) 0.2 % Immature Granulocyte # (Auto) 0.02 K/uL (0.00-0.02) Prothrombin Time 34.1 SECONDS (9.0-12.0) Prothromb Time International Ratio 3.3 (0.9-1.1) Activated Partial Thromboplast Time 36.9 SECONDS (21.0-31.0) Partial Thromboplastin Ratio 1.4 Anion Gap 6.0 mmol/L (3-11) Est Creatinine Clear Calc Drug Dose 51.2 ml/min Estimated GFR () 54.5 Estimated GFR (Non- 47.0 BUN/Creatinine Ratio 12.8 (10-20) Calcium Level 9.1 mg/dl (8.5-10.1) Total Bilirubin 1.1 mg/dl (0.2-1) Aspartate Amino Transf (AST/SGOT) 25 U/L (15-37) Alanine Aminotransferase (ALT/SGPT) 12 U/L (12-78) Alkaline Phosphatase 88 U/L (45-117) Total Protein 7.9 gm/dl (6.4-8.2) Albumin 3.8 gm/dl (3.4-5.0) Globulin 4.1 gm/dl (2.5-4.0) Albumin/Globulin Ratio 0.9 (0.9-2) Lipase 159 U/L (73-393) Laboratory results reviewed by me Medications Administered Medications (Trade) Dose Ordered Sig/Tamela Route Start Time Stop Time Status Last Admin Dose Admin Sodium Chloride 1,000 ml @ 125 mls/hr Q8H STAT IV 08/04/17 14:10 08/04/17 16:56 DC 08/04/17 14:28 125 MLS/HR Morphine Sulfate (MoRPHine SULFATE INJ) 4 mg NOW STAT IV 08/04/17 14:10 08/04/17 14:14 DC 08/04/17 14:28 4 MG Ondansetron HCl (Zofran Inj) 4 mg NOW STAT IV 08/04/17 14:10 08/04/17 14:14 DC 08/04/17 14:28 4 MG ED Course 1404: The patient was evaluated in room C4. A complete history and physical exam was performed. 1410: Zofran 4mg IV, Morphine Sulfate 4mg IV, Sodium Chloride 1000 ml @ 125 mls/ hr IV 1626: I reevaluated the patient, and her vital signs are stable. Her blood pressure has normalized after her pain was controlled. Repeat abdominal exam revealed no pain with palpation of the abdomen. Labs were within normal limits. INR was therapeutic. CT of the abdomen within normal limits. The patient will be discharged to follow up with her PCP. Return precautions were discussed with the patient and family and they were agreeable. All questions were answered, and written and verbal discharge instructions were given to the patient. Medical Decision repeat vital signs are stable. Her blood pressure has normalized after her pain was controlled w/ morphine. Repeat abdominal exam revealed no pain with palpation of the abdomen. Labs were within normal limits. INR was therapeutic. CT of the abdomen within normal limits. The patient will be discharged to follow up with her PCP. Return precautions were discussed with the patient and family and they were agreeable. All questions were answered, and written and verbal discharge instructions were given to the patient. Medication Reconcilliation Current Medication List: was personally reviewed by me Blood Pressure Screening Patient's blood pressure: Elevated blood pressure Blood pressure disposition: Referred to PCP Impression Primary Impression: Abdominal pain Scribe Attestation The scribe's documentation has been prepared under my direction and personally reviewed by me in its entirety. I confirm that the note above accurately reflects all work, treatment, procedures, and medical decision making performed by me. The chart was completed utilizing [employer] Speech voice recognition software. Grammatical errors, random word insertions, pronoun errors, and incomplete sentences are an occasional consequence of this system due to software limitations, ambient noise, and hardware issues. Any formal questions or concerns about the content, text, or information contained within the body of this dictation should be directly addressed to the physician for clarification. Departure Information Dispostion Home / Self-Care Referrals Titi Baez D.O. (PCP) Forms HOME CARE DOCUMENTATION FORM, IMPORTANT VISIT INFORMATION Patient Instructions My [facility]
== END 2017-08-04 16:43 | disposition home or self-care (01) ==
LOC: C.EDB 13:00 → C.EDC 16:43
DX: R10.31 Right lower quadrant pain (principal); E11.9 Type 2 diabetes mellitus without complications; I48.91 Unspecified atrial fibrillation; I10 Essential (primary) hypertension; G20 Parkinson's disease; Z79.01 Long term (current) use of anticoagulants; Z79.899 Other long term (current) drug therapy; Z80.9 Family history of malignant neoplasm, unspecified; Z83.3 Family history of diabetes mellitus; Z82.49 Family history of ischemic heart disease and other diseases of the circulatory system

== ENCOUNTER 2020-05-18 07:18 | Inpatient (IN) ==
--- NOTE | 2020-05-12 16:09 | Anesthesiology Consultation ---
Date of Service May 12, 2020 Assessment & Plan (1) Encounter for pre-operative examination: - Surgery was originally scheduled for 04/20. Rescheduled to 05/18/20.* - Per assessment on 05/12: Travel screen negative. No known COVID-19 positive contacts or current COVID-19 related symptoms. Surgeon arranging preop COVID testing (done 05/11 at surgeon's office). Awaiting results. - Cardiology office visit: 01/18/20: Patient seen by cardiology prior to lap jose (which was done 01/26/20 at [facility]). Per cardiology note: 01/21/20: "Stress test was negative for ischemia and did not suggest severe blockages. Overall heart function is normal. Findings do reflect longstanding atrial fibrillation and hypertension. No contraindications to proceeding with surgery as planned.. Lab work looks okay" - Check coags, BSG AM DOS - S/P lap cholecystecomy: 01/26/20: Grade 1 view, MAC#3, ETT 7 at [facility] - Comtan (entacapone) instructions: Hx Parkinson's on Comtan. Reviewed with Dr. Cunha- recommendation for patient to continue as directed perioperatively. Patient scheduled for left TKA (low likelihood of general anesthesia) but of note, studies have shown cases of post-op neuroleptic malignant syndrome with general anesthesia and recommendation for close monitoring post-op if general anesthesia used. Chart Review Chart Review: Acceptable Risk for Surgery and Patient NOT seen in Pre Admission Testing History Surgery Operation Date: 05/18/20 10:55 Proposed Procedures p L5-S1 Decompression and Fusion, Possible L4-L5, Spinal Cord Monitoring - Yehuda Marcelino DO Height/Weight Height: 5 ft 2 in Weight: 90.718 kg Allergies Allergy/AdvReac Type Severity Reaction Status Date / Time pramipexole AdvReac Unknown hallucinati Verified 05/12/20 13:59 ons Medications Home Medications Medication Instructions Recorded Confirmed Last Taken atorvastatin [Lipitor] 80 mg PO PM 01/21/20 05/12/20 01/25/20 21:00 calcitriol 0.5 mcg PO 1200 01/21/20 05/12/20 01/25/20 12:00 carbidopa-levodopa [Sinemet] 1 tab PO QID 01/21/20 05/12/20 01/25/20 21:00 cholecalciferol (vitamin D3) 25 mcg PO BID 01/21/20 05/12/20 01/25/20 12:00 [Vitamin D3] diltiazem HCl [Cardizem] 120 mg PO 1200 01/21/20 05/12/20 01/26/20 07:00 entacapone [Comtan] 200 mg PO TID 01/21/20 05/12/20 01/26/20 07:00 escitalopram oxalate [Lexapro] 10 mg PO QAM 01/21/20 05/12/20 01/25/20 09:00 lorazepam [Ativan] 0.5 mg PO BID 01/21/20 05/12/20 01/25/20 21:00 raloxifene 60 mg PO 1200 01/21/20 05/12/20 01/25/20 12:00 valsartan [Diovan] 80 mg PO 1200 01/21/20 05/12/20 01/25/20 12:00 warfarin 2.5 mg PO QPM 01/21/20 05/12/20 01/21/20 21:00 oxycodone-acetaminophen [Percocet] 1 tab PO Q6H PRN #20 tab 01/26/20 05/12/20 Unknown Past Medical History Medical History Anxiety Atrial fibrillation paroxysmal on warfarin CKD (chronic kidney disease) Depression DM type 2 (diabetes mellitus, type 2) diet controlled Hyperlipidemia Hypertension Obesity Osteoarthritis Parkinsons disease Urinary incontinence Vertigo Past Surgical History Surgical History History of cholecystectomy lap cholecystectomy: 01/26/20: Grade 1 view, MAC#3, ETT 7 at [facility] History of incision and drainage shoulder> PT UNSURE OF DETAILS Hx of breast biopsy LEFT Hx of colonoscopy Social History Smoking Status: Never smoker Do You Dip or Chew Tobacco: No Hx Alcohol Use: No Hx Substance Use: No substance use type: does not use Testing Laboratory Results 04/07/20 WBC 4.77 H/H 15.1/47.3 PLATELETS 177 PT 21.2 PTT 32.1 INR 2.1 T&S O+ Ab- UA negative 05/11/20 SODIUM 143 POTASSIUM 4.3 CHLORIDE 105 CO2 27 BUN 18 CREATININE 1.1 GLUCOSE 104 HGBA1C 6.3% Electrocardiogram Date: 01/18/20 A. fib at 76bpm. Low voltage QRS, consider pulmonary disease, pericardial effusion or normal variant. Cannot r/o anterior infarct. No significant change compared to 07/12/2015 per occupational analyst review. Patient subsequent had stress test 01/2020* Chest X-Ray Date: 04/07/20 FINDINGS: The heart is the upper limits of normal in size. There is no failure. There is no focal pulmonary consolidation. There are no pleural effusions. There is a linear band of subsegmental atelectasis/scarring at the left lung base. IMPRESSION: No active disease in the chest. Stress Test Date: 01/20/20 Type: DSE Stress echo negative for inducible ischemia. EF 55-60%. Mildly increased cLV wall thickness. Grade 3 DD with restrictive physiology. Mild MR/TR. Severe LAE. Moderate CHASITY. PASP borderline elevated (44mmhg). 127% MPHR.
[~2020-05-18 07:18] MED LIST changes: +ACETAMINOPHEN 500 MG TAB PO SCH; -CALC0.5C2 PO; -CARB25TA7 PO; -CHOL100010 PO; -CMD5 PO; +CeleBREX 200 MG CAP PO SCH; -DILT120T8 PO; -DVN80 PO; -ESCI10TA17 PO; -FRS/40 PO; +GABAPENTIN 300 MG CAP PO SCH; -HYDR-4079 PO; -LORA-741 PO; -LPT/40 PO; +LR 15ML/HR IV SCH; -POTA20TA16 PO; -RALO60TA30 PO; -WARF5TAB7 PO; +ceFAZolin 2000MG 2,000 MG/15 ML SYR IV SCH
--- NOTE | 2020-05-18 08:07 | History & Physical Bridge Note ---
Date of Service May 18, 2020 History & Physical Bridge Note I have examined the patient, reviewed the History & Physical and in the interval since the performance of the History & Physical I have noted the following changes of clinical significance: no changes noted
--- NOTE | 2020-05-18 08:08 | History & Physical Report ---
Date of Service May 18, 2020 Assessment & Plan (1) Neurogenic claudication due to lumbar spinal stenosis: Admission and Anticipated Discharge Date Admission Date: L5-S1 decompression fusion, possible L4-5 History of Present Illness Chief Complaint: Back and leg pain Primary Care Provider: Titi Baez DO This is a 74-year-old female who presents with chronic persistent leg pain markedly limiting nature and is here for surgical invention. Allergies Allergy/AdvReac Type Severity Reaction Status Date / Time pramipexole AdvReac Unknown hallucinati Verified 05/18/20 07:54 ons Home Medications Home Medications Medication Instructions Recorded Confirmed Type atorvastatin [Lipitor] 80 mg PO PM 01/21/20 05/18/20 History calcitriol 0.5 mcg PO 1200 01/21/20 05/18/20 History carbidopa-levodopa [Sinemet] 1 tab PO QID 01/21/20 05/18/20 History cholecalciferol (vitamin D3) 25 mcg PO BID 01/21/20 05/18/20 History [Vitamin D3] diltiazem HCl [Cardizem] 120 mg PO 1200 01/21/20 05/18/20 History entacapone [Comtan] 200 mg PO TID 01/21/20 05/18/20 History escitalopram oxalate [Lexapro] 10 mg PO QAM 01/21/20 05/18/20 History lorazepam [Ativan] 0.5 mg PO BID 01/21/20 05/18/20 History raloxifene 60 mg PO 1200 01/21/20 05/18/20 History valsartan [Diovan] 80 mg PO 1200 01/21/20 05/18/20 History warfarin 2.5 mg PO QPM 01/21/20 05/18/20 History oxycodone-acetaminophen [Percocet] 1 tab PO Q6H PRN #20 tab 01/26/20 05/18/20 Rx Past Med/Surg History Medical History (Updated 05/18/20 @ 08:08 by Yehuda Marcelino DO) Anxiety Atrial fibrillation paroxysmal on warfarin CKD (chronic kidney disease) Depression DM type 2 (diabetes mellitus, type 2) diet controlled Hyperlipidemia Hypertension Obesity Osteoarthritis Parkinsons disease Urinary incontinence Vertigo Surgical History History of cholecystectomy lap cholecystectomy: 01/26/20: Grade 1 view, MAC#3, ETT 7 at [facility] History of incision and drainage shoulder> PT UNSURE OF DETAILS Hx of breast biopsy LEFT Hx of colonoscopy Social History Smoking Status: Never smoker Second Hand Exposure: No; Do You Dip or Chew Tobacco: No; Tobacco Cessation Education Requested by Patient: No Hx Alcohol Use: No Hx Substance Use: No Preferred Language: Estonian Communication Ability: Effective Children[employer]S Ministry Director Required: No Beliefs That Will Affect Care: None Current Living Situation: Alone Other Information That Helps Us Care for You: No Feels Safe at Home: Yes Safety Concerns: Feels Safe At This Time Assistive Devices: Cane, Glasses and Walker Physical Exam Physical Exam: Patient is alert and oriented Heart regular rhythm Lungs clear to auscultation Results & Data ([facility]) Vital Signs (Past 12 Hours) Vital Signs Temp Pulse Resp BP Pulse Ox 05/18/20 08:01 36.7 C 79 18 159/95 H 97
[2020-05-18 08:23] LABS: INR 1.1 (0.9-1.1); Partial Thromboplastin Time 27.2 Seconds (21.0-31.0); Prothrombin Time 11.9 Seconds (9.0-12.0)
[2020-05-18] MEDS ORDERED: PROPOFOL IV EMULSION 10 MG/ML 20 ML VIAL IV ONE (08:36)
[2020-05-18] MEDS ORDERED: MIDAZOLAM HCL 1 MG/ML 2ML VIAL ONE (08:36)
[2020-05-18] MEDS ORDERED: fentaNYL citrate 100 MCG/2 ML VIAL ONE (08:37)
[2020-05-18] MEDS ORDERED: BUPIVACAINE/EPINEPHRINE 0.25% 1:200,000 30 ML VIAL INFIL ONE (08:42)
[2020-05-18] MEDS ORDERED: BACITRACIN INJ 50,000 UNIT VIAL IR ONE (08:43)
[2020-05-18] MEDS ORDERED: ONDANSETRON INJ 2 MG/ML 2 ML VIAL IV PRN ×2 (08:57→13:03)
[2020-05-18] MEDS ORDERED: ATROPINE SULFATE 0.1 MG/ML 10ML SYR IV PRN (08:57)
[2020-05-18] MEDS ORDERED: LABETALOL HCL IV 5 MG/ML 20ML IV PRN (08:57)
[2020-05-18] MEDS ORDERED: ROCURONIUM BROMIDE 10 MG/ML 5 ML VIAL IV ONE (10:52)
[2020-05-18] MEDS ORDERED: LIDOCAINE HCL 2% 2 ML VIAL/AMP(20MG/ML) INFIL ONE (10:52)
[2020-05-18] MEDS ORDERED: DEXAMETHASONE SOD INJ 4 MG/ML VIAL ONE (10:52)
[2020-05-18] MEDS ORDERED: NEOSTIGMINE METHYLSULFATE 1 MG/ML 10ML VIAL ONE (10:52)
[2020-05-18] MEDS ORDERED: ONDANSETRON INJ 2 MG/ML 2 ML VIAL ONE (10:52)
[2020-05-18] MEDS ORDERED: GLYCOPYRROLATE 0.2 MG/ML VIAL ONE (10:52)
[2020-05-18] MEDS ORDERED: FLOSEAL HEMOSTATIC MATRIX 10ML TOP ONE (11:01)
--- NOTE | 2020-05-18 11:03 | Operative Report ---
Post Operative Report Pre & Post Diagnosis Operation Date: 05/18/20 09:05 Pre-Op Diagnosis: Neurogenic Claudication due to Lumbar Spinal Stenosis Post-Op Diagnosis: Neurogenic Claudication due to Lumbar Spinal Stenosis I identified the patient and participated in the time-out.: Yes Procedure Operation Date: 05/18/20 09:05 Actual Procedures #1 lumbar decompression with bilateral medial facetectomies and foraminotomies L4-5 L5-S1. #2 posterior spinal fusion L4-5 L5-S1. #3 placement posterior instrumentation L4-5 L5-S1. #4 interbody fusion L5-S1. #5 placement peek cage 9 x 22 mm at L5-S1. #6 placement locally harvested morselized autograft in the posterior lateral gutters. #7 placement infuse collagen sponge plan master graft in the posterior lateral gutters and ostial amp and interbody space. Surgeon Yehuda Marcelino, New Accounts Clerk Daja Glass Estimated Blood Loss 300 Findings See Below Patient is 5 foot 2 inches tall weighing over 92 kg with a BMI in excess of 37. The patient's body habitus did add significant technical difficulty throughout the procedure requiring her deepest retractors and longus instruments. This added at least 50% increase to the operative time. Specimens None Indications This is a 74-year-old female who presents with significant back and leg pain. After failing course of nonoperative care she is here for surgical invention. Description of Procedure Patient met with identified informed consent obtained. Patient was then taken to the operative suite underwent an patient placed in a prone position on the Tarik table on top of the Sumanth frame. All bony prominences well-padded eyes inspected to ensure no external pressure placed upon the. This point the lumbar spine was prepped and draped in normal sterile fashion. Sharp dissection with the assistance of Bovie cautery was performed down to and exposing the lamina and transverse processes of L4-L5 and the sacral ala bilaterally. From caudal cephalad fashion complete laminectomy L5 and L4 was performed including bilateral medial facetectomies and foraminotomies addressing severe spinal stenosis. Pedicle screws were then placed in L4 and L5 and S1 levels bilaterally with assistance of fluoroscopy and appropriate size lia placed. By way of a transforamen approach on the left complete discectomy of L4-5 was performed endplates curetted to subcortical bleeding bone and a 9 x 22 mm peek cage filled with osteobone graft tapped in position. The rods and locked in final position bilaterally. The transverse processes of L4-L5 and sacral ala burred to subcortical leading bone. Infuse collagen sponge mass graft local autograft was placed in the posterior lateral gutters. 15 round KAVEH drain inserted. The incision was then closed with 1 Vicryl in the fascia 2-0 Vicryl subcutaneously and 4 Monocryl for final skin closure. Steri-Strip sterile dressings placed. Patient waken taken to PACU stable condition. Please note spinal cord monitoring was last that the procedure no changes noted. Lastly Daja Glass was present throughout the entire surgery involved the patient positioning complex portions of the surgery and final skin closure. I attest to the content of the Intraoperative Record and any orders documented therein. Any exceptions are noted below.
--- NOTE | 2020-05-18 11:07 | Fluoroscopy Report ---
FL lumbar spine 2-3V CLINICAL HISTORY: Decompression and fusion. COMPARISON STUDY: None. FLUOROSCOPY TIME: 24 seconds. FLUOROSCOPIC IMAGES: 3 FINDINGS: Fluoroscopy was provided during L5-S1 discectomy with interbody spacer placement. Posterior decompression is noted. Bilateral pedicle screws at the L4, L5 and S1 levels are noted with intercon necting rods. Hardware is intact. IMPRESSION: Fluoroscopy provided during L5-S1 discectomy and L4-S1 posterior decompression and bilat eral pedicle screw fusion. ACT 112: Negative or not required by law. Electronically signed by: Jamil Barbour M.D. 05/18/2020 11:06 AM
[2020-05-18] MEDS: HYDROmorphone INJ 2 MG/ML SYR/VIAL IV PRN ×7 (11:26→12:01)
[2020-05-18] MEDS ORDERED: HYDROmorphone INJ 1 MG/ML SYRINGE ONE (12:04)
[2020-05-18] MEDS ORDERED: ACETAMINOPHEN 1,000 MG/100 ML VIAL IV PRN (13:03)
[2020-05-18] MEDS ORDERED: bisacodyL 10 MG SUPP PR PRN (13:03)
[2020-05-18] MEDS ORDERED: LORazepam 0.5 MG TAB PO PRN (13:03)
[2020-05-18] MEDS ORDERED: MAGNESIUM HYDROXIDE SUSP 30 ML UDC PO PRN (13:03)
[2020-05-18] MEDS ORDERED: SODIUM CHLORIDE 0.9% 1000ML 1,000 ML IV SCH (13:03)
[2020-05-18] MEDS ORDERED: HYDROmorphone INJ 1 MG/ML SYRINGE IV PRN (13:03)
[2020-05-18] MEDS ORDERED: LORazepam 0.5 MG/1 ML VIAL IV PRN (13:03)
[2020-05-18] MEDS ORDERED: METOCLOPRAMIDE HCL INJ 5 MG/ML 2 ML VIAL IV PRN (13:03)
[2020-05-18] MEDS ORDERED: NALOXONE HCL 0.4 MG/1 ML VIAL/CARP IV PRN (13:03)
[2020-05-18] MEDS ORDERED: traMADol HCL 50 MG TABLET PO PRN (13:03)
[2020-05-18] MEDS ORDERED: PROMETHAZINE HCL 12.5 MG in SODIUM CHLORIDE 0.9% 50 ML IV PRN (13:03)
[2020-05-18] MEDS ORDERED: hydrOXYzine HCl 25 MG TAB PO PRN (13:03)
[2020-05-18] MEDS ORDERED: ALUMINUM/MAGNESIUM SUSP 30 ML UDC PO PRN (13:03)
[2020-05-18] MEDS ORDERED: SOD PHOSPHATE/SOD BIPHOSPHATE ENEMA 132 ML BTL PR PRN (13:03)
[2020-05-18] MEDS ORDERED: DO NOT ADMINISTER FLU VACCINE PRN (13:03)
[2020-05-18] MEDS ORDERED: diphenhydrAMINE Capsule 25 MG CAP PO PRN (13:03)
[2020-05-18] MEDS ORDERED: DO NOT ADMINISTER PNEUMOCOCCAL VACCINE PRN (13:03)
[2020-05-18] MEDS ORDERED: ONDANSETRON 4 MG OD TAB PO PRN (13:03)
[2020-05-18] MEDS ORDERED: FAMOTIDINE 20 MG TAB PO PRN (13:03)
[2020-05-18] MEDS ORDERED: HYDROmorphone INJ 0.5 MG/0.5 ML SYR IV PRN (13:03)
[2020-05-18] MEDS ORDERED: VALSARTAN 80 MG TAB PO SCH (13:30)
--- NOTE | 2020-05-18 14:51 | Anesthesiology Progress Note ---
Date of Service May 18, 2020 Anesthesia Post Procedure Vital Signs Vital Signs: Temp Pulse Pulse Resp BP BP Pulse Ox 05/18/20 14:23 75 16 105/68 99 05/18/20 13:33 79 16 121/78 100 05/18/20 13:00 36.5 C 84 16 106/68 92 05/18/20 12:45 36.8 C 82 18 122/76 98 05/18/20 12:35 36.8 C 97 H 18 118/76 98 05/18/20 12:25 36.8 C 82 18 121/76 98 05/18/20 12:15 77 18 121/76 98 05/18/20 12:05 86 18 124/69 97 05/18/20 11:55 81 18 126/69 98 05/18/20 11:45 87 18 104/88 96 05/18/20 11:35 75 18 118/76 100 05/18/20 11:25 36.2 C L 68 18 125/80 97 05/18/20 08:01 36.7 C 79 18 159/95 H 97 Pain Intensity Back: Pain Intensity: 8 Transfer of Care Handoff Completed per policy Notes Mental Status: alert / awake / arousable Patient Amnestic to Procedure: Yes Nausea / Vomiting: adequately controlled Pain: adequately controlled Airway Patency, RR, SpO2: stable & adequate BP & HR: stable & adequate Hydration State: stable & adequate Anesthetic Complications: no major complications apparent
[2020-05-18] MEDS: RALOXIFENE HCL 60 MG TAB PO SCH (15:40)
[2020-05-18] MEDS: ENTACAPONE 200 MG TAB PO SCH ×2 (15:40→21:22)
[2020-05-18] MEDS: CALCITRIOL 0.25 MCG CAPSULE PO SCH (15:41)
[2020-05-18] MEDS: CARBIDOPA/LEVODOPA 25-250 1 EA TAB PO SCH ×3 (15:41→21:24)
[2020-05-18 16:50] LABS: Hematocrit (blood only) 41.6 % (37-47); Hemoglobin 13.4 g/dL (12.0-16.0); Mean Corpuscular Hemoglobin 29.9 pg (25-34); Mean Corpuscular Volume 92.9 fL (80-100); Mean Platelet Volume 10.2 fL (7.4-10.4); Platelet Count 171 K/uL (130-400); RDW Coefficient of Variation 14.8 % (11.5-14.5); RDW Standard Deviation 50.7 fL (36.4-46.3); Red Blood Count 4.48 M/uL (4.2-5.4); White Blood Count 13.36 K/uL (4.8-10.8)
--- NOTE | 2020-05-18 16:54 | Consultation ---
Date of Consultation May 18, 2020 Assessment & Plan (1) Neurogenic claudication due to lumbar spinal stenosis: POD # [address] Marcelino "Actual Procedures #1 lumbar decompression with bilateral medial facetectomies and foraminotomies L4-5 L5-S1. #2 posterior spinal fusion L4-5 L5-S1. #3 placement posterior instrumentation L4-5 L5-S1. #4 interbody fusion L5-S1. #5 placement peek cage 9 x 22 mm at L5-S1. #6 placement locally harvested morselized autograft in the posterior lateral gutters. #7 placement infuse collagen sponge plan master graft in the posterior lateral gutters and ostial amp and interbody space." EBL 500ml; KAVEH drain 350ml tolerated procedure well post op with asymptomatic hypotension and L calf pain pain/wound management per ortho activity and therapy per ortho encourage incentive spirometry continue IVF as discussed below monitor H/H obtain LLE Venous doppler in setting of calf pain (2) Postoperative hypotension: Bp during my exam 94/64 hold valsartan Continue IVF - increase to 150ml/hr time next 1 L and then reduce back to 100cc CBC reviewed hgb 13.4 (pre op 15), BMP pending likely secondary to poor po intake, anesthesia and analgesia She is currently asymptomatic Nurse instructed to alert MD if BP less than 90 systolically or heart rate greater than 90 (3) Atrial fibrillation: Chronic atrial fibrillation rate controlled with diltiazem Anticoagulated with warfarin, has been on hold for 5 days preoperatively, INR 1.1 today Resume at discretion of Dr. Marcelino -but would resume as soon as hemostasis felt to be achieved secondary to chronic atrial fibrillation Per coumadin clinic when resumed give 5mg x 2 days and then 2.5mg daily Chadsvasc 4 (4) Parkinsons disease: Controlled with Sinemet and Comtan (5) Pre-diabetes: A1c 6.310/21 Monitor Accu-Cheks in setting of preoperative steroids (6) Hypertension: BP on low side, as above hold valsartan (7) Hyperparathyroidism: continue calcitriol (8) DVT prophylaxis: SCD/TEDS Disposition: per primary Follow up: PCP Dr. Baez upon discharge Pt was seen and examined in collaboration with Dr. Kuo, please see addendum Starting 05/19/20 pt will be under the care of Dr. Velazquez Thank you for this consultation. We will follow the patient with you during their hospital stay. You can reach a member of the [place] Hospitalist Team 11/02 via pager @ [phone]. Supervising Physician Co-Signing Physician Notes Attending addendum The patient was seen and examined in medical floor She is status post back surgery with considerable amount of blood loss as mentioned in consultation She was noted to have hypotension postoperatively without any significant symptoms She does not have any shortness of breath, chest pain, palpitation, no abdominal pain, nausea and or vomiting Denies any dizziness as well On Examination She is lying in bed comfortably Blood pressure noted to be systolic 98/61 and has been getting intravenous fluid at 800 mL/h Chest-minimal crackles at the bases Heart-S1-S2, irregular, no murmur appreciated Abdomen-benign, bowel sounds present Extremities-trace to 1+ edema bilaterally 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 Agree with assessment and plan as outlined above by Susie Kuo History of Present Illness Requesting Physician: Dr. Marcelino Reason for Consultation: Postop medical management Attending Physician: Yehuda Marcelino DO History of Present Illness This is a 74-year-old female who has significant past medical history of chronic atrial fibrillation anticoagulated on warfarin, HTN, HLD, CKD stage III, prediabetes, Parkinson's disease, anxiety who presents for elective lumbar procedure by Dr. Marcelino. She tolerated the procedure well and we are consulted for medical management. Nursing staff also called to note hypotension postoperatively. Nursing states at around 1500 blood pressure was 88/58 while sitting in chair and she was asymptomatic. 1 hour later blood p ressure was still low but did increase to 98/61 with a heart rate of 81. Nursing staff also reports complaint of calf pain. Patient states ever since procedure she has been experiencing left calf pain describes it as a dull ache. She has been pumping her calves to try to alleviate symptoms. Pain is 4/10. She currently denies any lightheadedness, dizziness, chest pain, shortness of breath, cough, nausea, vomiting, abdominal pain. Prior to procedure she denies any difficulty with urinating or moving bowels. She did have Monet catheter in place but this was since removed. She tolerated her clear liquid diet for lunch. Nursing states her valsartan was held. Of significance patient does have history of prediabetes with her last A1c on 05/11 6.3. She does have chronic atrial fibrillation which runs in her family. She is anticoagulated on warfarin and this has been on hold for the past 5 days. Her INR preop was 1.1. Her blood pressure is well controlled on valsartan. She also has Parkinson's disease that is well controlled on Sinemet and Comtan. Allergies Allergy/AdvReac Type Severity Reaction Status Date / Time pramipexole AdvReac Unknown hallucinati Verified 05/18/20 07:54 ons Home Medications Home Medications Medication Instructions Recorded Confirmed Type atorvastatin [Lipitor] 80 mg PO PM 01/21/20 05/18/20 History calcitriol 0.5 mcg PO 1200 01/21/20 05/18/20 History carbidopa-levodopa [Sinemet] 1 tab PO QID 01/21/20 05/18/20 History cholecalciferol (vitamin D3) 25 mcg PO BID 01/21/20 05/18/20 History [Vitamin D3] diltiazem HCl [Cardizem] 120 mg PO 1200 01/21/20 05/18/20 History entacapone [Comtan] 200 mg PO TID 01/21/20 05/18/20 History escitalopram oxalate [Lexapro] 10 mg PO QAM 01/21/20 05/18/20 History lorazepam [Ativan] 0.5 mg PO BID 01/21/20 05/18/20 History raloxifene 60 mg PO 1200 01/21/20 05/18/20 History valsartan [Diovan] 80 mg PO 1200 01/21/20 05/18/20 History warfarin 2.5 mg PO QPM 01/21/20 05/18/20 History oxycodone-acetaminophen [Percocet] 1 tab PO Q6H PRN #20 tab 01/26/20 05/18/20 Rx oxycodone 5 mg PO Q6H PRN #20 tab 05/18/20 Rx tramadol 50 mg PO Q6H PRN #20 tab 05/18/20 Rx Patient History Medical History (Updated 05/18/20 @ 17:06 by Alison Kruger PA-C) Anxiety Atrial fibrillation paroxysmal on warfarin CKD (chronic kidney disease) Depression DM type 2 (diabetes mellitus, type 2) diet controlled Hyperlipidemia Hypertension Obesity Osteoarthritis Parkinsons disease Urinary incontinence Vertigo Surgical History History of cholecystectomy lap cholecystectomy: 01/26/20: Grade 1 view, MAC#3, ETT 7 at [facility] History of incision and drainage shoulder> PT UNSURE OF DETAILS Hx of breast biopsy LEFT Hx of colonoscopy Family History Mother Atrial fibrillation Father Myocardial infarction Social History (Updated 05/18/20 @ 16:52 by Alison Kruger PA-C) Smoking Status: Never smoker Second Hand Exposure: No; Do You Dip or Chew Tobacco: No; Tobacco Cessation Education Requested by Patient: No Hx Alcohol Use: No Hx Substance Use: No Preferred Language: Faroese Communication Ability: 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 Beliefs That Will Affect Care: None Current Living Situation: Alone Current Living Situation Comment: Lives with mother, but she is currently in nursing facility Other Information That Helps Us Care for You: No Feels Safe at Home: Yes Safety Concerns: Feels Safe At This Time Assistive Devices: Glasses and Walker Review of Systems Review of Systems: All systems reviewed & are unremarkable except as noted in HPI & below Physical Exam Physical Exam: Constitutional: WD/WN, female, vitals as above, NAD, sitting up in bed, pleasant, conversing easily, mild masked facies, speech slowed Head: Normocephalic, Atraumatic Eyes: PERRL, conjunctivae normal, anicteric sclerae ENMT: external ear and nose normal, oropharynx normal Neck: trachea midline, no thyromegaly normal visual inspection Respiratory: normal respiratory effort, lungs clear to auscultation, no wheeze, rales, rhonchi. Normal insp/exp effort, no accessory muscle use Cardiovascular: Irregular rate, irregular rhythm, no lower extremity edema but bilateral varicosities left greater than right, pain to palpation of left calf, no redness or warmth. Vessels: no JVD or carotid bruit Chest: normal inspection of chest Abdomen: Obese abdomen, prior laparoscopic surgery incisions noted, normal bowel sounds, soft, nontender, no hepatosplenomegaly Musculoskeletal: no cyanosis or clubbing, extremities active range of motion x4, lumbar dressing CDI with KAVEH drain intact serosanguineous drainage Skin: no rashes, warm and dry normal turgor Neurologic: PERRL, EOMI, accommodation nl, no face palsy, no dysarthria CN's II-XI intact bilaterally and moves all extremities Psychiatric: A+Ox3, euthymic affect Lymphatic: no cervical or axillary lymphadenopathy : deferred Results & Data ([facility]) Vital Signs (Past 12 Hours) Vital Signs Temp Pulse Pulse Resp BP BP Pulse Ox 05/18/20 16:10 37.0 C 81 14 98/61 L 96 05/18/20 15:00 36.8 C 77 12 88/58 L 98 05/18/20 14:23 75 16 105/68 99 05/18/20 13:33 79 16 121/78 100 05/18/20 13:00 36.5 C 84 16 106/68 92 05/18/20 12:45 36.8 C 82 18 122/76 98 05/18/20 12:35 36.8 C 97 H 18 118/76 98 05/18/20 12:25 36.8 C 82 18 121/76 98 05/18/20 12:15 77 18 121/76 98 05/18/20 12:05 86 18 124/69 97 05/18/20 11:55 81 18 126/69 98 05/18/20 11:45 87 18 104/88 96 05/18/20 11:35 75 18 118/76 100 05/18/20 11:25 36.2 C L 68 18 125/80 97 05/18/20 08:01 36.7 C 79 18 159/95 H 97 Laboratory Results Preoperative lab 05/11 A1c 6.3 and creatinine 1.1 04/07 H&H 15.1 and 47.3, BUN 24, creatinine 1.39 Diagnostic Findings Lumbar Xray: IMPRESSION: Fluoroscopy provided during L5-S1 discectomy and L4-S1 posterior decompression and bilateral pedicle screw fusion. Medications Administered Acetaminophen (Acetaminophen 500 Mg Tab) 1,000 mg PO PREOP CRISTAL Stop: 05/18/20 18:00 Last Admin: 05/18/20 08:09 Dose: 1,000 mg Documented by: [id number] Calcitriol (Calcitriol 0.25 Mcg Capsule) 0.5 mcg PO DAILY@1200 CRISTAL Stop: 06/17/20 13:29 Last Admin: 05/18/20 15:41 Dose: 0.5 mcg Documented by: [id number] Carbidopa/Levodopa (Carbidopa/Levodopa 25-250 1 Ea Tab) 1 tab PO QID CRISTAL Stop: 06/17/20 13:29 Last Admin: 05/18/20 15:41 Dose: 1 tab Documented by: [id number] Celecoxib (Celebrex 200 Mg Cap) 200 mg PO PREOP CRISTAL Stop: 05/18/20 18:00 Last Admin: 05/18/20 08:08 Dose: 200 mg Documented by: [id number] Entacapone (Entacapone 200 Mg Tab) 200 mg PO TID CRISTAL Stop: 06/17/20 13:59 Last Admin: 05/18/20 15:40 Dose: 200 mg Documented by: [id number] Gabapentin (Gabapentin 300 Mg Cap) 300 mg PO PREOP CRISTAL Stop: 05/18/20 18:00 Last Admin: 05/18/20 08:09 Dose: 300 mg Documented by: [id number] Lactated Ringer's (Lr) 1,000 mls @ 15 mls/hr IV .Q24H CRISTAL Stop: 05/19/20 05:59 Last Infusion: 05/18/20 09:00 Dose: 0 mls/hr Documented by: [id number] Admin: 05/18/20 08:08 Dose: 15 mls/hr Documented by: [id number] Cefazolin Sodium (Ancef 2000mg) 2,000 mg in 15 mls @ 3.75 mls/min IV PREOP CRISTAL; Protocol Stop: 05/18/20 18:00 Last Admin: 05/18/20 09:00 Dose: 3.75 mls/min Documented by: [id number] Sodium Chloride (Nss 1000ml) 1,000 mls @ 150 mls/hr IV .Q6H40M CRISTAL Stop: 05/18/20 21:00 Last Admin: 05/18/20 14:29 Dose: 100 mls/hr Documented by: [id number] Raloxifene HCl (Raloxifene Hcl 60 Mg Tab) 60 mg PO DAILY@1200 CRISTAL Stop: 06/17/20 13:29 Last Admin: 05/18/20 15:40 Dose: 60 mg Documented by: [id number] Valsartan (Valsartan 80 Mg Tab) 80 mg PO DAILY@1200 CRISTAL Stop: 06/17/20 13:29 Last Admin: 05/18/20 15:39 Dose: Not Given Documented by: [id number] Discontinued Medications Bacitracin (Bacitracin Inj 50,000 Unit Vial) 50,000 units IR ONCE ONE Stop: 05/18/20 08:44 Last Admin: 05/18/20 09:57 Dose: 50,000 units Documented by: [id number] Bupivacaine HCl/Epinephrine Bitart (Bupivacaine/Epinephrine 0.25% 1:200,000 30 Ml Vial) 30 ml INFIL ONCE ONE Stop: 05/18/20 08:43 Last Admin: 05/18/20 09:37 Dose: 30 ml Documented by: [id number] Hydromorphone HCl (Hydromorphone Inj 2 Mg/Ml Syr/Vial) 0.25 mg IV Q5M PRN PRN Reason: PACU Use Only-Pain Stop: 05/18/20 17:00 Last Admin: 05/18/20 12:01 Dose: 0.25 mg Documented by: [id number] Admin: 05/18/20 11:51 Dose: 0.25 mg Documented by: [id number] Admin: 05/18/20 11:46 Dose: 0.25 mg Documented by: [id number] Admin: 05/18/20 11:41 Dose: 0.25 mg Documented by: [id number] Admin: 05/18/20 11:36 Dose: 0.25 mg Documented by: [id number] Admin: 05/18/20 11:31 Dose: 0.25 mg Documented by: [id number] Admin: 05/18/20 11:26 Dose: 0.25 mg Documented by: [id number] Hydromorphone HCl (Hydromorphone Inj 1 Mg/Ml Syringe) Confirm Administered Dose 1 mg .ROUTE .STK-MED ONE Stop: 05/18/20 12:05 Last Increment: 05/18/20 12:11 Dose: 0.25 mg Documented by: [id number] Increment: 05/18/20 12:06 Dose: 0.25 mg Documented by: [id number] Miscellaneous ( Floseal Hemostatic Matrix 10ml) 35 ml TOP ONCE ONE Stop: 05/18/20 11:02 Last Admin: 05/18/20 11:02 Dose: 25 ml Documented by: [id number] ECG Rhythm: atrial fibrillation
[2020-05-18 16:57] LABS: Mean Corpuscular Hgb Conc 32.2 g/dL (32-36)
[2020-05-18] MEDS: ceFAZolin 2000MG 2,000 MG/15 ML SYR IV SCH (17:33)
[2020-05-18 17:37] LABS: BUN Creatinine Ratio 16.3 (10-20); Calcium 8.4 mg/dl (8.5-10.1); Est GFR (African American) 33.4; Est GFR (Non-African American) 28.8; Potassium 4.7 mmol/L (3.5-5.1)
[2020-05-18] MEDS: LORazepam 0.5 MG TAB PO SCH (21:22)
[2020-05-18] MEDS: ATORVASTATIN 40 MG TAB PO SCH (21:23)
[2020-05-18] MEDS: CHOLECALCIFEROL 1,000 UNITS 25 MCG TAB PO SCH (21:24)
[2020-05-18] MEDS: DOCUSATE SODIUM/SENNA 50/8.6MG TAB PO SCH (21:25)
[2020-05-18] MEDS: SODIUM CHLORIDE 0.9% 1000ML 1,000 ML IV SCH (22:27)
[2020-05-19] MEDS: ceFAZolin 2000MG 2,000 MG/15 ML SYR IV SCH (00:53)
[2020-05-19] MEDS: oxyCODONE HCL IR 5 MG TAB (IMMEDIATE RELEASE) PO PRN (02:25)
[2020-05-19] MEDS: ACETAMINOPHEN 500 MG TAB PO PRN (05:34)
[2020-05-19] MEDS: POLYETHYLENE (MIRALAX) 17 GM PACK PO SCH ×3 (05:35→17:05)
[2020-05-19 06:31] LABS: Basophils # (auto) 0.02 K/uL (0-0.2); Basophils % (auto) 0.1 %; Hematocrit (blood only) 35.4 % (37-47); Hemoglobin 11.4 g/dL (12.0-16.0); Immature Granulocytes # (auto) 0.03 K/uL (0.00-0.02); Immature Granulocytes % (auto) 0.2 %; Lymphocytes # (auto) 0.85 K/uL (1.2-3.4); Lymphocytes % (auto) 6.1 %; Mean Corpuscular Hemoglobin 29.3 pg (25-34); Mean Corpuscular Hgb Conc 32.2 g/dL (32-36); Mean Platelet Volume 10.7 fL (7.4-10.4); Monocytes # (auto) 1.78 K/uL (0.11-0.59); Monocytes % (auto) 12.8 %; Neutrophils # (auto) 11.25 K/uL (1.4-6.5); Neutrophils % (auto) 80.8 %; Platelet Count 156 K/uL (130-400); RDW Coefficient of Variation 14.8 % (11.5-14.5); RDW Standard Deviation 49.7 fL (36.4-46.3); Red Blood Count 3.89 M/uL (4.2-5.4); White Blood Count 13.93 K/uL (4.8-10.8)
--- NOTE | 2020-05-19 06:54 | Ultrasound Report ---
US venous doppler LE LT CLINICAL HISTORY: Left calf pain. COMPARISON STUDY: No previous studies for comparison. FINDINGS: Real-time and color flow Doppler imaging were performed. Flow was seen within the femoral, popliteal and calf veins with no intraluminal thrombus demonstrated. The saphenous vein is patent. Th ere is a hypoechoic collection within the medial distal thigh measuring 23 x 69 x 13 mm. This could r epresent an old hematoma or seroma. Clinical correlation advocated. IMPRESSION: 1. No evidence of left lower extremity DVT. 2. 23 x 6 9 x 13 mm hypoechoic collection within the medial distal thigh, possibly representing old h ematoma. ACT 112: Negative or not required by law. Electronically signed by: Sanket Roberts M.D. 05/19/2020 6:53 AM
[2020-05-19 07:02] LABS: BUN Creatinine Ratio 17.9 (10-20); Creatinine Clr Calc Pharmacy 34.8 ml/min; Est GFR (African American) 38.4; Est GFR (Non-African American) 33.1; Potassium 4.2 mmol/L (3.5-5.1)
[2020-05-19] MEDS: SODIUM CHLORIDE 0.9% 1000ML 1,000 ML IV SCH (07:32)
--- NOTE | 2020-05-19 08:33 | Orthopedic Progress Note ---
Date of Service May 19, 2020 Assessment & Plan (1) Neurogenic claudication due to lumbar spinal stenosis: Admission and Anticipated Discharge Date Admission Date: May 18, 2020 We will initiate physical therapy today occupational therapy today and anticip ate possible discharge to rehab tomorrow. Subjective Back pain controlled leg symptoms improved Physical Exam Physical Exam: Patient is good strength testing appears comfortable. Results & Data ([facility]) Vital Signs (Past 12 Hours) Vital Signs Temp Pulse Resp BP Pulse Ox 05/19/20 07:44 36.8 C 78 16 126/63 96 05/19/20 03:24 36.8 C 102 H 16 124/84 93 05/19/20 00:05 36.3 C L 113 H 16 125/86 92
--- NOTE | 2020-05-19 09:16 | Hospitalist Progress Note ---
Date of Service May 19, 2020 Assessment & Plan (1) Neurogenic claudication due to lumbar spinal stenosis: operation on 05/18/[address] Marcelino "Actual Procedures #1 lumbar decompression with bilateral medial facetectomies and foraminotomies L4-5 L5-S1. #2 posterior spinal fusion L4-5 L5-S1. #3 placement posterior instrumentation L4-5 L5-S1. #4 interbody fusion L5-S1. #5 placement peek cage 9 x 22 mm at L5-S1. #6 placement locally harvested morselized autograft in the posterior lateral gutters. #7 placement infuse collagen sponge plan master graft in the posterior lateral gutters and ostial amp and interbody space." EBL 500ml; KAVEH drain 730ml tolerated procedure well post op with asymptomatic hypotension and L calf pain pain/wound management per ortho activity and therapy per ortho encourage incentive spirometry monitor H/H (2) Acute worsening of stage 3 chronic kidney disease: Baseline creatinine 1.3-1.4 Postoperative creatinine 1.74 associate with hypotension Blood pressure is improving and renal function 28 and 1.55 this morning Continue to avoid nephrotoxic agents Encourage fluid intake Finish current liter of fluid and D/C (3) Acute blood loss anemia: Preop hemoglobin 15.1, H&H 11.4 and 35.4 today Secondary to acute blood loss as well as delusional component Monitor H&H (4) Postoperative hypotension: Blood pressure improved today to 126/63 Continue to hold valsartan (5) Atrial fibrillation: Chronic atrial fibrillation rate controlled with diltiazem Anticoagulated with warfarin, has been on hold for 5 days preoperatively, INR 1.[address] Marcelino at bedside, okay to resume warfarin tomorrow 05/20/2020 Will resume per coagulation clinic recommendations 5mg x 2 days and then 2.5mg daily Chadsvasc 4 (6) Parkinsons disease: Controlled with Sinemet and Comtan (7) Pre-diabetes: A1c 6.3 05/11 Monitor Accu-Cheks in setting of preoperative steroids (8) Hypertension: BP on low side, as above hold valsartan (9) Hyperparathyroidism: continue calcitriol (10) DVT prophylaxis: SCD/TEDS Disposition: per primary Follow up: PCP Dr. Baez upon discharge Pt was seen and examined in collaboration with Dr. Velazquez, please see addendum Thank you for this consultation. We will follow the patient with you during their hospital stay. You can reach a member of the [facility] Hospitalist Team 11/02 via pager @ [phone]. Admission and Anticipated Discharge Date Admission Date: May 18, 2020 Supervising Physician Co-Signing Physician Notes I, Dr. Michael Velazquez, have seen and examined the patient with physician orthopedic assistant and would like to comment that on physical exam General: HEENT: no facial droop, eye movements intact Heart: regular rate Lungs: no auscultation, no wheezing Abdomen: soft, nontender Neuro/Extremities: able to move the upper and lower extremities while laying on the bed Psych: answers all questions appropriately. Patient denies acute symptoms currently Assessment and plan -this a patient with Neurogenic Claudication due to Lumbar Spinal Stenosis and had lumbar spine surgery on 05/18/20 -avoid excessive blood pressure medications because of episode of dizziness post-operatively -medicine team to continue following the renal function closely -warfarin is to be resumed on 05/20/2020 in context of stroke prevention from history of atrial fibrillation -agree with other assessment and plans as documented by physician orthopedic assistant Subjective Patient was seen and evaluated on 319. Follow-up lumbar procedure by Dr. Marcelino. She feels well this morning. She admits to minimal sleep. She states left calf pain is much improved. She admits yesterday to mild lightheadedness, but this has since resolved. Her blood pressure is much improved this morning. She denies fever, chills, sweats, lightheadedness, dizziness, chest pain, shortness of breath, nausea, vomiting, abdominal pain. She is anxious for regular diet this morning. Offers no other overt complaints. Review of Systems Review of Systems: All systems reviewed & are unremarkable except as noted in HPI & below Physical Exam Physical Exam: Gen: WD/WN, female, elderly, mild masked facies, NAD, A&O x3 HEENT: Normocephalic, atraumatic, conjunctivae moist, sclerae anicteric, mucous membranes moist. Lung: Clear to Auscultation bilaterally, no wheezes/rales/rhonchi Heart: Regular rate, irregular rhythm, no murmurs, rubs, or gallops Abdomen: Soft, NT, ND +BS x 4 Extremities: Bilateral lower obese extremity with varicosities, no edema, teds in place, skin: Warm, no rash, negative turgor. Lumbar dressing CDI, KAVEH drain intact with serosanguineous drainage Results & Data Results & Data ([facility]) Vital Signs (Past 12 Hours) Vital Signs Temp Pulse Resp BP Pulse Ox 05/19/20 07:44 36.8 C 78 16 126/63 96 05/19/20 03:24 36.8 C 102 H 16 124/84 93 05/19/20 00:05 36.3 C L 113 H 16 125/86 92 Laboratory Results Short CBC 05/18/20 05/18/20 05/19/20 Range/Units 16:43 16:43 05:55 WBC 13.36 H 13.93 H (4.8-10.8) K/uL Hgb 13.4 11.4 L (12.0-16.0) g/dL Hct 41.6 35.4 L (37-47) % Plt Count 171 156 (130-400) K/uL Creatinine 1.74 H (0.6-1.2) mg/dl 05/19/20 Range/Units 05:55 WBC (4.8-10.8) K/uL Hgb (12.0-16.0) g/dL Hct (37-47) % Plt Count (130-400) K/uL Creatinine 1.55 H (0.6-1.2) mg/dl BMP 05/18/20 05/19/20 16:43 05:55 Sodium 140 136 Potassium 4.7 4.2 Chloride 107 106 Carbon Dioxide 29 27 BUN 28 H 28 H Creatinine 1.74 H 1.55 H Glucose 134 H 129 H Calcium 8.4 L 8.0 L Diagnostic Findings venous doppler LLE: IMPRESSION: 1. No evidence of left lower extremity DVT. 2. 23 x 6 9 x 13 mm hypoechoic collection within the medial distal thigh, possibly representing old hematoma. Medications Administered Acetaminophen (Acetaminophen 500 Mg Tab) 1,000 mg PO Q8H PRN PRN Reason: MILD Pain Scale 1,2,3 & Pre PT Stop: 06/17/20 13:02 Last Admin: 05/19/20 05:34 Dose: 1,000 mg Documented by: [id number] Atorvastatin Calcium (Atorvastatin 40 Mg Tab) 80 mg PO PM CRISTAL Stop: 06/17/20 20:59 Last Admin: 05/18/20 21:23 Dose: 80 mg Documented by: [id number] Calcitriol (Calcitriol 0.25 Mcg Capsule) 0.5 mcg PO DAILY@1200 CRISTAL Stop: 06/17/20 13:29 Last Admin: 05/18/20 15:41 Dose: 0.5 mcg Documented by: [id number] Carbidopa/Levodopa (Carbidopa/Levodopa 25-250 1 Ea Tab) 1 tab PO QID CRISTAL Stop: 06/17/20 13:29 Last Admin: 05/18/20 21:24 Dose: 1 tab Documented by: [id number] Admin: 05/18/20 17:34 Dose: 1 tab Documented by: [id number] Admin: 05/18/20 15:41 Dose: 1 tab Documented by: [id number] Entacapone (Entacapone 200 Mg Tab) 200 mg PO TID CRISTAL Stop: 06/17/20 13:59 Last Admin: 05/18/20 21:22 Dose: 200 mg Documented by: [id number] Admin: 05/18/20 15:40 Dose: 200 mg Documented by: [id number] Sodium Chloride (Nss 1000ml) 1,000 mls @ 100 mls/hr IV .Q10H CRISTAL Stop: 06/17/20 20:59 Last Admin: 05/19/20 07:32 Dose: 100 mls/hr Documented by: [id number] Infusion: 05/19/20 07:32 Dose: 100 mls/hr Documented by: [id number] Admin: 05/18/20 22:27 Dose: 100 mls/hr Documented by: [id number] Lorazepam (Lorazepam 0.5 Mg Tab) 0.5 mg PO BID CRISTAL Stop: 06/17/20 20:59 Last Admin: 05/18/20 21:22 Dose: Not Given Documented by: [id number] Oxycodone HCl (Oxycodone Hcl Ir 5 Mg Tab (Immediate Release)) 5 - 10 mg PO Q4H PRN PRN Reason: Moderate-Severe Pain & Pre PT Stop: 06/01/20 13:02 Last Admin: 05/19/20 02:25 Dose: 10 mg Documented by: [id number] Polyethylene Glycol (Polyethylene (Miralax) 17 Gm Pack) 17 gm PO Q6 CRISTAL Stop: 06/18/20 05:59 Last Admin: 05/19/20 05:35 Dose: 17 gm Documented by: [id number] Raloxifene HCl (Raloxifene Hcl 60 Mg Tab) 60 mg PO DAILY@1200 CRISTAL Stop: 06/17/20 13:29 Last Admin: 05/18/20 15:40 Dose: 60 mg Documented by: [id number] Senna/Docusate Sodium (Docusate Sodium/Senna 50/8.6mg Tab) 2 tab PO HS CRISTAL Stop: 06/17/20 20:59 Last Admin: 05/18/20 21:25 Dose: 2 tab Documented by: [id number] Valsartan (Valsartan 80 Mg Tab) 80 mg PO DAILY@1200 [facility] Stop: 06/17/20 13:29 Last Admin: 05/18/20 15:39 Dose: Not Given Documented by: [id number] Vitamin D (Cholecalciferol 1,000 Units 25 Mcg Tab) 1,000 units PO BID CRISTAL Stop: 06/17/20 20:59 Last Admin: 05/18/20 21:24 Dose: 1,000 units Documented by: [id number] Discontinued Medications Acetaminophen (Acetaminophen 500 Mg Tab) 1,000 mg PO PREOP CRISTAL Stop: 05/18/20 18:00 Last Admin: 05/18/20 08:09 Dose: 1,000 mg Documented by: [id number] Bacitracin (Bacitracin Inj 50,000 Unit Vial) 50,000 units IR ONCE ONE Stop: 05/18/20 08:44 Last Admin: 05/18/20 09:57 Dose: 50,000 units Documented by: [id number] Bupivacaine HCl/Epinephrine Bitart (Bupivacaine/Epinephrine 0.25% 1:200,000 30 Ml Vial) 30 ml INFIL ONCE ONE Stop: 05/18/20 08:43 Last Admin: 05/18/20 09:37 Dose: 30 ml Documented by: [id number] Celecoxib (Celebrex 200 Mg Cap) 200 mg PO PREOP CRISTAL Stop: 05/18/20 18:00 Last Admin: 05/18/20 08:08 Dose: 200 mg Documented by: [id number] Gabapentin (Gabapentin 300 Mg Cap) 300 mg PO PREOP CRSITAL Stop: 05/18/20 18:00 Last Admin: 05/18/20 08:09 Dose: 300 mg Documented by: [id number] Hydromorphone HCl (Hydromorphone Inj 2 Mg/Ml Syr/Vial) 0.25 mg IV Q5M PRN PRN Reason: PACU Use Only-Pain Stop: 05/18/20 17:00 Last Admin: 05/18/20 12:01 Dose: 0.25 mg Documented by: [id number] Admin: 05/18/20 11:51 Dose: 0.25 mg Documented by: [id number] Admin: 05/18/20 11:46 Dose: 0.25 mg Documented by: [id number] Admin: 05/18/20 11:41 Dose: 0.25 mg Documented by: [id number] Admin: 05/18/20 11:36 Dose: 0.25 mg Documented by: [id number] Admin: 05/18/20 11:31 Dose: 0.25 mg Documented by: [id number] Admin: 05/18/20 11:26 Dose: 0.25 mg Documented by: [id number] Hydromorphone HCl (Hydromorphone Inj 1 Mg/Ml Syringe) Confirm Administered Dose 1 mg .ROUTE .STK-MED ONE Stop: 05/18/20 12:05 Last Increment: 05/18/20 12:11 Dose: 0.25 mg Documented by: [id number] Increment: 05/18/20 12:06 Dose: 0.25 mg Documented by: [id number] Lactated Ringer's (Lr) 1,000 mls @ 15 mls/hr IV .Q24H CRISTAL Stop: 05/19/20 05:59 Last Infusion: 05/18/20 09:00 Dose: 0 mls/hr Documented by: [id number] Admin: 05/18/20 08:08 Dose: 15 mls/hr Documented by: [id number] Cefazolin Sodium (Ancef 2000mg) 2,000 mg in 15 mls @ 3.75 mls/min IV PREOP CRISTAL; Protocol Stop: 05/18/20 18:00 Last Admin: 05/18/20 09:00 Dose: 3.75 mls/min Documented by: [id number] Sodium Chloride (Nss 1000ml) 1,000 mls @ 150 mls/hr IV .Q6H40M CRISTAL Stop: 05/18/20 21:00 Last Infusion: 05/19/20 04:55 Dose: 0 mls/hr Documented by: [id number] Admin: 05/18/20 14:29 Dose: 100 mls/hr Documented by: [id number] Cefazolin Sodium (Ancef 2000mg) 2,000 mg in 15 mls @ 3.75 mls/min IV Q8H CRISTAL; Protocol Stop: 05/19/20 01:03 Last Admin: 05/19/20 00:53 Dose: 3.75 mls/min Documented by: [id number] Admin: 05/18/20 17:33 Dose: 3.75 mls/min Documented by: [id number] Miscellaneous ( Floseal Hemostatic Matrix 10ml) 35 ml TOP ONCE ONE Stop: 05/18/20 11:02 Last Admin: 05/18/20 11:02 Dose: 25 ml Documented by: [id number]
[2020-05-19] MEDS: ESCITALOPRAM OXALATE 10 MG TAB PO SCH (09:30)
[2020-05-19] MEDS: CARBIDOPA/LEVODOPA 25-250 1 EA TAB PO SCH ×4 (09:30→22:20)
[2020-05-19] MEDS: LORazepam 0.5 MG TAB PO SCH ×2 (09:30→22:20)
[2020-05-19] MEDS: CHOLECALCIFEROL 1,000 UNITS 25 MCG TAB PO SCH ×2 (09:30→22:20)
[2020-05-19] MEDS: ENTACAPONE 200 MG TAB PO SCH ×3 (09:31→22:22)
[2020-05-19] MEDS: CALCITRIOL 0.25 MCG CAPSULE PO SCH (13:16)
[2020-05-19] MEDS: dilTIAZem HCL 120 MG CAPCR PO SCH (13:16)
[2020-05-19] MEDS: RALOXIFENE HCL 60 MG TAB PO SCH (13:16)
[2020-05-19] MEDS: ATORVASTATIN 40 MG TAB PO SCH (22:21)
[2020-05-19] MEDS: DOCUSATE SODIUM/SENNA 50/8.6MG TAB PO SCH (22:23)
[2020-05-20] MEDS: POLYETHYLENE (MIRALAX) 17 GM PACK PO SCH ×3 (00:02→12:41)
--- NOTE | 2020-05-20 08:51 | Hospitalist Progress Note ---
Date of Service May 20, 2020 Assessment & Plan (1) Neurogenic claudication due to lumbar spinal stenosis: -this a patient with Neurogenic Claudication due to Lumbar Spinal Stenosis and had lumbar spine surgery on 05/18/[address] Marcelino (Actual Procedures: #1 lumbar decompression with bilateral medial facetectomies and foraminotomies L4-5 L5-S1. #2 posterior spinal fusion L4-5 L5-S1. #3 placement posterior instrumentation L4-5 L5-S1. #4 interbody fusion L5-S1. #5 placement peek cage 9 x 22 mm at L5-S1. #6 placement locally harvested morselized autograft in the posterior lateral gutters. #7 placement infuse collagen sponge plan master graft in the posterior lateral gutters and ostial amp and interbody space."), with estimated blood loss of 500 ml reported intraoperatively, EBL 500ml, post op with hypotension and Left calf pain -pain management appears to be good -encourage incentive spirometry -05/20/2020: Patient seen and examined at bedside while sitting up right without back support to eat the breakfast on her own. Nurse reported that her oxygen saturation was 86% on room air when her vitals were checked this morning, and so patient has been on 1L/min of oxygen. Patient examined while on supplementary oxygen. She denies subjective shortness of breath. She is not in acute pain. She does not have dizziness. Her blood pressures when sitting upright are normal A chest X ray is ordered (2) Acute blood loss anemia: -Preop hemoglobin 15.1 -hemoglobin 11.4 on 05/19/2020 (3) Postoperative hypotension: -the home dose valsartan continues to be held and blood pressures are okay currently without valsartan (4) Hypertension: -history of hypertension, off valsartan at this time -continue diltiazem (5) Acute worsening of stage 3 chronic kidney disease: -Baseline creatinine 1.3-1.4 -Postoperative creatinine 1.74 associate with hypotension -creatinine improved as 1.55 by 05/19/2020 after IV fluids (6) Atrial fibrillation: -Chronic atrial fibrillation rate controlled with diltiazem -her home dose warfarin was on hold for 5 days preoperatively -resume on 05/20/2020 per coagulation clinic recommendations of warfarin 5mg x 2 days and then 2.5mg daily (7) Pre-diabetes: -HbA1c 6.3 05/11/20 -no further blood sugar checks at this time given time off the preoperative steroids (8) Parkinsons disease: -Controlled with Sinemet and Comtan (9) Hyperparathyroidism: continue calcitriol (10) DVT prophylaxis: -SCD/TEDS Follow up: PCP Dr. Baez upon discharge Admission and Anticipated Discharge Date Admission Date: May 18, 2020 Subjective Patient seen and examined at bedside while sitting up right without back support to eat the breakfast on her own. Nurse reported that her oxygen saturation was 86% on room air when her vitals were checked this morning, and so patient has been on 1L/min of oxygen. Patient examined while on supplementary oxygen. She denies subjective shortness of breath. She is not in acute pain. She does not have dizziness. Her blood pressures when sitting upright are normal Review of Systems Review of Systems: All systems reviewed & are unremarkable except as noted in Subjective Physical Exam Constitutional: cooperative Eyes: PERRL, conjunctivae normal, anicteric sclerae EOM intact bilaterally ENMT: external ear and nose normal, oropharynx normal Neck: normal visual inspection Respiratory: normal respiratory effort, lungs clear to auscultation Cardiovascular: Rate/Rhythm: regular rate Gastrointestinal (Abdomen): normal bowel sounds, soft, nontender, no hepatosplenomegaly Musculoskeletal: Head/Neck/Chest: normocephalic and head atraumatic Neurologic: PERRL, EOMI, accommodation nl, no face palsy, no dysarthria moves all extremities Psychiatric: A+Ox3, euthymic affect Results & Data Results & Data ([facility]) Vital Signs (Past 12 Hours) Vital Signs Temp Pulse Resp BP BP Pulse Ox 05/20/20 07:25 37 C 82 16 104/65 92 05/20/20 07:20 86 L 05/19/20 22:32 36.7 C 69 16 107/68 98 05/19/20 22:09 36.8 C 66 16 98/62 L 90
[2020-05-20] MEDS: ENTACAPONE 200 MG TAB PO SCH ×2 (09:09→12:45)
[2020-05-20] MEDS: ESCITALOPRAM OXALATE 10 MG TAB PO SCH (09:09)
[2020-05-20] MEDS: CARBIDOPA/LEVODOPA 25-250 1 EA TAB PO SCH ×3 (09:10→16:50)
[2020-05-20] MEDS: CHOLECALCIFEROL 1,000 UNITS 25 MCG TAB PO SCH (09:10)
[2020-05-20] MEDS: LORazepam 0.5 MG TAB PO SCH (09:12)
--- NOTE | 2020-05-20 10:04 | XRay Report ---
XR chest 1V portable CLINICAL HISTORY: Hypoxia. Pulmonary infiltrate. COMPARISON STUDY: 04/07/2020 FINDINGS: The heart is mildly enlarged. There is no failure. There is elevation of the right hemidiap hragm with right basilar opacities, atelectatic versus infectious/inflammatory. There is a calcified granuloma within the left midlung zone. There is a linear subsegmental atelectasis/scarring towards t he left lung base[a small right pleural effusion cannot be excluded. IMPRESSION: 1. Mild cardiomegaly 2. Elevation right hemidiaphragm 3. Right basilar opacities, atelectatic versus infectious/inflammatory ACT 112: Negative or not required by law. Electronically signed by: Sanket Roberts M.D. 05/20/2020 10:03 AM
--- NOTE | 2020-05-20 10:30 | Discharge Summary ---
Date of Service May 20, 2020 Admission HPI Per Admitting Provider This is a 74-year-old female who presents with chronic persistent leg pain markedly limiting nature and is here for surgical invention. Principal Diagnosis Lumbar spinal stenosis with neurogenic claudication Discharge Data Allergies Allergy/AdvReac Type Severity Reaction Status Date / Time pramipexole AdvReac Unknown hallucinati Verified 05/18/20 07:54 ons Consultations 05/18/20 13:03 Consult Case Management - Discharge Planning Routine Consult Hospitalist Routine Procedures Performed Operation Date: 05/18/20 09:05 Actual Procedures p L4-S1 Decompression and Fusion with Insertion of Interbody, Application of OsteoAmp and Bone Morphogenetic Protein, Spinal Cord Monitoring(Not Applicable) - Yehuda Marcelino DO Ordered Studies 05/18/20 09:05 FL fluoroscopy <1hr Routine FL lumbar spine 2-3V Routine 05/18/20 16:35 US venous doppler LE LT Urgent Hospital Course (1) Neurogenic claudication due to lumbar spinal stenosis: Patient went lumbar decompression fusion tolerated this well was taken to orthopedic for possibly. Postop day 1 she was up and ambulating progressed to postop day #2. Pain controlled. Strength intact. Tolerating therapy well. Subsequently discharged to rehab. Discharge orders instructions were on the chart for further review. Total Time Total Time Spent Total Time Spent (In Minutes): 20 minutes Discharge Plan Discharge Items Patient Disposition: Transfer Inpatient Rehab Fac Reason For Visit: Low Back Pain Discharge Diagnosis: Lumbar spinal stenosis with neurogenic claudication Activity: As commented below Non-emergency contact: Primary Care Provider Call non-emergency contact if: you have any medication questions Follow-up/Referrals: Titi Baez DO [Primary Care Provider] - Diet: Regular Addtl Attending Provider Instructions: ACTIVITY RECOMMENDATIONS: SELF CARE INSTRUCTIONS AFTER THORACIC/LUMBAR FUSIONS 1. You may walk to your tolerance. It is good exercise for your legs and back. Expect some back and intermittent leg aches and pains. 2. You may perform "counter-top" level activities (make a sandwich, lorenzo with a project, etc.). 3. No bending or lifting of more than 10 pounds or back twisting of any nature (roll like a log when turning in bed). 4. You may ride in a car for 20-30 minutes at a time. No driving until after your first visit with your doctor. 5. Frequent changes of position and restricting sitting to 30 minutes at a time will help limit the amount of back spasms and stiffness you may experience. 6. You may discontinue the use of ambulatory aids (cane, crutches, etc.) once your strength and confidence allow. 7. You may director of patient financial services the shower and let water strike your incision when you arrive home at least once daily. Do not take a tub bath, sit in a hot tub or go into a swimming pool until after your first recheck in the office. SPECIAL CARE INSTRUCTIONS: VERY IMPORTANT TO READ AND REVIEW A. Your surgical incision has been closed with a cosmetic suture under the skin that will dissolve in about 6 weeks. In 14 days, you can use a pair of clean scissors and cut the suture that is left outside of the skin at the ends of your incision. 1. The small skin tapes can be removed 7 days after surgery if they have not fallen off by that point. 2. You may keep the wound open to air as much as possible to promote healing after post-op day number 5 unless told otherwise by your doctor. 3. If you think the wound looks like it is becoming infected (redness or worsening drainage) and/or you are experiencing fever, chill or worsening back pain and muscle spasms, contact the office so that we may evaluate you as soon as possible. B. Complications are uncommon, but please contact us if you have any signs or symptoms of: 1. wound infection (fever higher than 102.5 degrees F, redness, separation of wound, drainage, or increasing pain from the incision) 2. blood clots in legs (pain, swelling, redness and warmth in legs) 3. urinary tract infection (fever higher than 102.5 degrees F, burning upon urination or increased frequency of urination) 4. nerve problems (inability to walk on your toes or heels, numbness, loss of bowel or bladder control) 5. any other symptoms that concern you C. Please call the office at if you have any concerns or questions about your operation or recovery. D. No smoking! Smoking drastically decreases the chance of a solid fusion. E. Do not take any anti-inflammatory medications (Indocin, Advil, Motrin, Aspirin, Naprosyn, etc.) as these may inhibit the chance of a solid fusion. Tylenol is okay to take for pain. MANAGING PAIN AFTER SPINAL SURGERY 1. Narcotic medication is intended for short-term use and will be provided for surgical pain. Surgical pain usually lasts for a period of 4-6 weeks. Narcotic medication includes Percocet, Vicodin, Darvocet, Tylenol #3 or Lortab. 2. Longer-term pain is more appropriately treated with non-narcotic medication such as Tylenol ES. 3. Muscle spasm is not appropriately treated with narcotics. Muscle relaxers such as Soma, Flexeril or Skelaxin can be used along with Tylenol ES. 4. Remember that we all live with some "aches and pains". This is not unusual or uncommon after an injury or as we get older. a. Back pain is expected and may include muscle spasms for 4 to 6 weeks after surgery. The pain should gradually improve. If the pain worsens for no apparent reason, please contact the office. b. Intermittent leg pain may also be experienced and should not be concerned about unless it worsens for no apparent reason. If so, please contact the office. 5. We will provide appropriate medication within the normal guidelines of their prescribed use. We will also be very cautious and aware of potential abuse and extended duration of patients' medication needs. a. Pain medications are for your comfort and to assist with sleep and rest so that the tissue can heal. They are not provided in order to return to normal activity and should not be used through the day. To do so or worsening pain at night can result from ongoing tissue damage and development of tolerance to the prescribed medicine. 6. Please allow 2-3 days to process refills. Prescriptions will not be mailed but must be picked up at the office. FOLLOW UP VISIT: Keep your scheduled follow-up appointment. Any questions, please call the office at . Pending Studies at Discharge: No Stand-Alone Forms: My [facility] [employer] Skilled Items Patient informed of condition?: Yes DNR: No Discharge Level of Care: Acute rehab Communicable Disease: No Discharge Prognosis: Improving Lines: None Urinary Catheter: No Medications and DC Order Prescriptions: New tramadol 50 mg tablet 50 mg PO Q6H PRN (Reason: pain, moderate) Qty: 20 RF: 0 oxycodone 5 mg tablet 5 mg PO Q6H PRN (Reason: pain, severe) Qty: 20 RF: 0 Continued atorvastatin [Lipitor] 40 mg Tablet 80 mg PO PM RF: 0 carbidopa-levodopa [Sinemet] 25-250 mg Tablet 1 tab PO QID RF: 0 valsartan [Diovan] 80 mg Tablet 80 mg PO 1200 RF: 0 entacapone [Comtan] 200 mg Tablet 200 mg PO TID RF: 0 diltiazem HCl [Cardizem] 120 mg Tablet 120 mg PO 1200 RF: 0 lorazepam [Ativan] 0.5 mg Tablet 0.5 mg PO BID RF: 0 calcitriol 0.5 mcg Capsule 0.5 mcg PO 1200 RF: 0 warfarin 5 mg Tablet 2.5 mg PO QPM RF: 0 raloxifene 60 mg Tablet 60 mg PO 1200 RF: 0 escitalopram oxalate [Lexapro] 10 mg Tablet 10 mg PO QAM RF: 0 cholecalciferol (vitamin D3) [Vitamin D3] 25 mcg (1,000 unit) Tablet 25 mcg PO BID RF: 0 oxycodone-acetaminophen [Percocet] 5-325 mg tablet 1 tab PO Q6H PRN (Reason: pain) Qty: 20 RF: 0 Discharge Orders: Discharge Order (Routine); Ordered 05/20/20 Ordered By: Yehuda Marcelino Admission Data Admit Date/Time: 05/18/20 11:42 Attending Provider: Yehuda Marcelino Admit Provider: Yehuda Marcelino Primary Care Provider: Titi Baez Other Providers: Michael Velazquez ; [facility]
--- NOTE | 2020-05-20 11:37 | XRay Report ---
XR chest 2V PA/lateral HISTORY: Follow-up right lung opacity. COMPARISON: Chest 05/20/2020. FINDINGS: Mild elevation the right hemidiaphragm. This is improved. A few bibasilar linear densities consistent with subsegmental atelectasis. No focal lung consolidations to suggest pneumonia. This has also improved. No pneumothorax. No pleural effusions. Punctate calcified granuloma within the left m idlung zone. The heart remains mildly enlarged. IMPRESSION: Improved aeration within the lung bases suggesting resolving atelectasis. The heart remains mildly en larged. ACT 112: Negative or not required by law. Electronically signed by: Carlos Vera M.D. 05/20/2020 11:35 AM
[2020-05-20] MEDS: dilTIAZem HCL 120 MG CAPCR PO SCH (12:40)
[2020-05-20] MEDS: CALCITRIOL 0.25 MCG CAPSULE PO SCH (12:42)
[2020-05-20] MEDS: RALOXIFENE HCL 60 MG TAB PO SCH (12:42)
[2020-05-20] MEDS: ACETAMINOPHEN 500 MG TAB PO PRN (13:58)
[2020-05-20] MEDS ORDERED: WARFARIN SOD 5 MG TAB PO SCH (16:00)
[2020-05-20] MEDS: oxyCODONE HCL IR 5 MG TAB (IMMEDIATE RELEASE) PO PRN (16:50)
[2020-05-22] MEDS ORDERED: WARFARIN SOD 2.5 MG TAB PO SCH (16:00)
== END 2020-05-20 18:06 | DRG 454 ==
LOC: ASU 07:18 → 3E 11:42

== ENCOUNTER 2020-06-08 18:01 | Inpatient (IN) ==
--- NOTE | 2020-06-08 19:07 | Emergency Department Note ---
History of Present Illness General Chief complaint: Back Injury/Pain Stated complaint: BACK PAIN Time Seen by Provider: 06/08/20 18:50 Source: patient History of Present Illness Provider complaint: Back pain Onset (ago): week(s) Location: back, left and right Radiation: extremity (Both legs) Severity: moderate Pain Consistency: + intermittent Maximum Pain Intensity: 5 Quality: + sharp Exacerbated By: + other (Getting up in the morning) Associated symptoms: + weakness (Weakness in both legs since her surgery) and + other (Zwhi-kfg-[id number] down both legs); no chest pain, no cough, no fever/chills, no headaches, no nausea/vomiting and no shortness of breath This is a 74-year-old female who recently underwent surgery with Dr. Marcelino for back pain. The patient is currently at [facility] and has had persistent pain and intermittent kzad-mrd-tyqjwwo down her legs since her surgery. She also states that she has had weakness in both legs since the surgery which has not changed recently. She describes pain as sharp. She notices it is worse in the morning when she tries to get up to go to the bathroom. It is across her lower back and occasionally radiates down both her legs. She states is mostly localized over her buttock. She denies any recent injury or fall. She states that she has chronic urinary incontinence at night which has been unchanged for years. She denies any fecal incontinence, fever, abdominal pain, chest pain, shortness of breath, cough or cold symptoms or known exposure to COVID-19. The patient had a CT scan today which showed some hardware issues and she was sent to the ED so that Dr. Marcelino could look at her CT scan. Home Medications Medication Instructions Recorded Confirmed Type atorvastatin [Lipitor] 80 mg PO PM 01/21/20 06/08/20 History calcitriol 0.5 mcg PO 1200 01/21/20 06/08/20 History carbidopa-levodopa [Sinemet] 1 tab PO QID 01/21/20 06/08/20 History cholecalciferol (vitamin D3) 25 mcg PO BID 01/21/20 06/08/20 History [Vitamin D3] diltiazem HCl [Cardizem] 120 mg PO 1200 01/21/20 06/08/20 History entacapone [Comtan] 200 mg PO TID 01/21/20 06/08/20 History escitalopram oxalate [Lexapro] 10 mg PO QAM 01/21/20 06/08/20 History lorazepam [Ativan] 0.5 mg PO BID 01/21/20 06/08/20 History raloxifene 60 mg PO 1200 01/21/20 06/08/20 History valsartan [Diovan] 80 mg PO 1200 01/21/20 06/08/20 History warfarin 5 mg PO QPM 01/21/20 06/08/20 History oxycodone 5 mg PO Q6H PRN #20 tab 05/18/20 06/08/20 Rx tramadol 50 mg PO Q6H PRN #20 tab 05/18/20 06/08/20 Rx Naloxone 4mg/0.1ml 4 mg INHALATION UD PRN 06/08/20 06/08/20 History Allergies Allergy/AdvReac Type Severity Reaction Status Date / Time pramipexole AdvReac Unknown hallucinati Verified 06/08/20 21:04 ons Past Med/Surg History Medical History (Updated 06/08/20 @ 20:36 by Ky Cordon MD) Anxiety Atrial fibrillation paroxysmal on warfarin CKD (chronic kidney disease) Depression DM type 2 (diabetes mellitus, type 2) diet controlled Hyperlipidemia Hypertension Obesity Osteoarthritis Parkinsons disease Urinary incontinence Vertigo Surgical History History of cholecystectomy lap cholecystectomy: 01/26/20: Grade 1 view, MAC#3, ETT 7 at [facility] History of incision and drainage shoulder> PT UNSURE OF DETAILS Hx of breast biopsy LEFT Hx of colonoscopy Family History Mother Atrial fibrillation Father Myocardial infarction Social History Smoking Status: Never smoker Second Hand Exposure: No; Hx Alcohol Use: No Hx Substance Use: No Preferred Language: [place] Island[place] Communication Ability: Effective Public Relations Senior Associate Required: No Beliefs That Will Affect Care: None marital status: / Current Living Situation: Family Current Living Situation Comment: Lives in a house Other Information That Helps Us Care for You: No Feels Safe at Home: Yes Assistive Devices: Walker Review of Systems See HPI for pertinent positives & negatives. and A total of 10 systems reviewed and were otherwise negative Physical Exam Vital Signs Vital Signs - 24 hr 06/08/20 18:06 Temperature 37.3 C Temperature Source Oral Pulse Rate 75 Pulse Rhythm Regular Pulse Strength Normal Respiratory Rate 20 Blood Pressure 115/94 Blood Pressure Mean 101 Blood Pressure Position Lying Pulse Oximetry 94 Oxygen Delivery Method Room Air Sepsis Recent Fever Within 48 Hours No Sepsis New/Unexplained Change in Mental Status No Sepsis Action Taken by Nursing No Action Required Constitutional: Vital signs reviewed. Eyes: Pupils are equal round reactive to light. Conjunctiva are noninjected. ENT: Pharynx is clear without erythema or exudate. Mucous membranes are moist. Neck supple without meningeal signs. Respiratory: Clear to auscultation bilaterally. Breath sounds are equal bilaterally. Cardiovascular: Regular rate and rhythm. No rubs or gallops. GI: Soft, nondistended and nontender. Bowel sounds are present. Musculoskeletal: No peripheral edema. No lower extremity tenderness. There is tenderness over the left sacrum. Midline incision appears to be clean dry and intact without signs of erythema or increased warmth or drainage. Integumentary: No cyanosis. or jaundice. Neurological: The patient is awake and alert. No focal deficits. Psychiatric: Normal affect. Not anxious appearing. Course Administered Medications Carbidopa/Levodopa (Carbidopa/Levodopa 25-250 1 Ea Tab) 1 tab PO 0900,1200,1600,2100 CRISTAL Stop: 07/08/20 22:17 Last Admin: 06/08/20 22:41 Dose: 1 tab Documented by: [id number] Entacapone (Entacapone 200 Mg Tab) 200 mg PO TID CRISTAL Stop: 07/08/20 22:29 Last Admin: 06/08/20 22:41 Dose: 200 mg Documented by: [id number] Sodium Chloride (Nss) 500 mls @ 50 mls/hr IV .Q10H ONE Stop: 06/09/20 08:06 Last Admin: 06/08/20 22:41 Dose: 50 mls/hr Documented by: [id number] Insulin Aspart (Insulin Aspart 100 Units/Ml 3 Ml Pen) 0 units SC ACHS CRISTAL Stop: 07/08/20 22:06 Last Admin: 06/08/20 22:44 Dose: Not Given Documented by: [id number] Cosigned by: [id number] Lorazepam (Lorazepam 0.5 Mg Tab) 0.5 mg PO BID [facility] Stop: 07/08/20 22:06 Last Admin: 06/08/20 22:42 Dose: Not Given Documented by: [id number] Discontinued Medications Hydromorphone HCl (Hydromorphone Inj 0.5 Mg/0.5 Ml Syr) 0.25 mg IV NOW STA Stop: 06/08/20 20:44 Last Admin: 06/08/20 21:29 Dose: 0.25 mg Documented by: [id number] Phytonadione 10 mg/ Sodium (Chloride) 51 mls @ 102 mls/hr IV ONE ONE Stop: 06/08/20 20:46 Last Infusion: 06/08/20 21:30 Dose: 0 mls/hr Documented by: [id number] Admin: 06/08/20 20:44 Dose: 102 mls/hr Documented by: [id number] Lidocaine (Lidocaine 5% 1 Patch) 1 patch TD QAM CRISTAL Stop: 07/08/20 20:19 Last Admin: 06/08/20 21:31 Dose: Not Given Documented by: [id number] Lidocaine (Lidocaine 5% 1 Patch) Confirm Administered Dose 1 patch TD .STK-MED ONE Stop: 06/08/20 20:25 Last Admin: 06/08/20 20:44 Dose: 1 patch Documented by: [id number] Medical Decision Making Differential Diagnosis Sacral fracture, hardware failure, acute exacerbation of chronic back pain, postoperative pain, transverse process fracture Medical Records Attestation: I reviewed the patient's medical records. The patient underwent lumbar fusion and decompression on May [address] Marcelino. She had a CT scan of the lumbar spine today which showed the following: CT SCAN OF THE LUMBAR SPINE WITHOUT IV CONTRAST CLINICAL HISTORY: Postoperative back pain. COMPARISON STUDY: Abdominal CT dated 08/04/2017. TECHNIQUE: CT scan of the lumbar spine is performed from the lower thoracic spine to the sacrum. Images are reviewed in the axial, sagittal, and coronal planes. IV contrast was not administered for this examination. A dose lowering technique was utilized adhering to the principles of ALARA. CT DOSE: 564.75 mGy.cm FINDINGS: The skeletal structures are osteopenic. Vertebral body height and alignment are maintained throughout the lumbar spine. There is hyperlordosis. Anterior and lateral marginal osteophytes are seen throughout. There is postoperative change from laminectomy and posterior fusion seen from L4-S1. Interpedicular screws are present at all levels. Lucency around the right interpedicular screw at S1 suggests loosening. There are numerous lumbosacral fractures. There is a nondisplaced spinous process fracture of L4 seen on axial image #159. A right transverse process fracture of L4 is seen on image #151. There are bilateral transverse process fractures of L5. There is a large complex sacral fracture extending horizontally through the body of S1. This involves both sacral ala, and involves the right interpedicular screw at S1. There has been discectomy at L5-S1. Moderate to advanced disc space narrowing is seen from T12 -L1 through L1-L2. There is advanced degenerative endplate sclerosis at these levels. No lytic or blastic lesion is seen. The central canal is not well evaluated due to significant streak artifact from metallic spinal hardware. There is fatty atrophy of the paraspinous musculature. Postoperative change is seen at the L4-S1 levels. No organized fluid collection is suggested on this unenhanced examination. There is advanced atherosclerotic calcification of the abdominal aorta. No retroperitoneal lymphadenopathy is identified. IMPRESSION: 1. There is a complex sacral fracture as above which involves the right interpedicular screw at S1. 2. There is a spinous process fracture and right transverse process fracture of L4. 3. There are bilateral transverse process fractures of L5. 4. There is postoperative change from L4-S1 spinal fusion. The orthopedic h ardware appears intact. 5. Lucency around the right interpedicular screw at S1 suggests loosening. ACT 112: Negative or not required by law. Electronically signed by: Omar Hill M.D. 06/08/2020 4:12 PM Laboratory Data Result diagrams: 06/08/20 19:32 06/08/20 21:07 Lab Results 06/08/20 06/08/20 06/08/20 Range/Units 19:32 19:32 19:32 WBC 9.73 (4.8-10.8) K/uL RBC 4.68 (4.2-5.4) M/uL Hgb 13.7 (12.0-16.0) g/dL Hct 42.5 (37-47) % MCV 90.8 (80-100) fL MCH 29.3 (25-34) pg MCHC 32.2 (32-36) g/dL RDW Std Deviation 50.2 H (36.4-46.3) fL RDW Coeff of Ratna 15.0 H (11.5-14.5) % Plt Count 312 (130-400) K/uL MPV 10.4 (7.4-10.4) fL Immature Gran % (Auto) 0.3 % Neut % (Auto) 87.9 % Lymph % (Auto) 7.0 % [place] % (Auto) 3.9 % Eos % (Auto) 0.8 % Baso % (Auto) 0.1 % Neut # (Auto) 8.55 H (1.4-6.5) K/uL Lymph # (Auto) 0.68 L (1.2-3.4) K/uL [place] # (Auto) 0.38 (0.11-0.59) K/uL Eos # (Auto) 0.08 (0-0.5) K/uL Baso # (Auto) 0.01 (0-0.2) K/uL Immature Gran # (Auto) 0.03 H (0.00-0.02) K/uL PT 33.5 H (9.0-12.0) Seconds INR 3.4 H (0.9-1.1) APTT 32.3 H (21.0-31.0) Seconds PTT Ratio 1.2 Sodium 135 L (136-145) mmol/L Potassium (3.5-5.1) mmol/L Chloride 106 (98-107) mmol/L Carbon Dioxide 29 (21-32) mmol/L Anion Gap 0 L (3-11) BUN 26 H (7-18) mg/dl Creatinine 1.19 (0.6-1.2) mg/dl Est Cr Clr Drug Dosing 50.8 ml/min Est GFR ( Amer) 52.8 Est GFR (Non-Af Amer) 45.6 BUN/Creatinine Ratio 21.5 H (10-20) Glucose 128 H (70-99) mg/dl Calcium 8.6 (8.5-10.1) mg/dl Magnesium Cancelled SARS-CoV-2 Ag (Rapid) (Negative) 06/08/20 Range/Units 20:03 WBC (4.8-10.8) K/uL RBC (4.2-5.4) M/uL Hgb (12.0-16.0) g/dL Hct (37-47) % MCV (80-100) fL MCH (25-34) pg MCHC (32-36) g/dL RDW Std Deviation (36.4-46.3) fL RDW Coeff of Ratna (11.5-14.5) % Plt Count (130-400) K/uL MPV (7.4-10.4) fL Immature Gran % (Auto) % Neut % (Auto) % Lymph % (Auto) % [place] % (Auto) % Eos % (Auto) % Baso % (Auto) % Neut # (Auto) (1.4-6.5) K/uL Lymph # (Auto) (1.2-3.4) K/uL [place] # (Auto) (0.11-0.59) K/uL Eos # (Auto) (0-0.5) K/uL Baso # (Auto) (0-0.2) K/uL Immature Gran # (Auto) (0.00-0.02) K/uL PT (9.0-12.0) Seconds INR (0.9-1.1) APTT (21.0-31.0) Seconds PTT Ratio Sodium (136-145) mmol/L Potassium (3.5-5.1) mmol/L Chloride (98-107) mmol/L Carbon Dioxide (21-32) mmol/L Anion Gap (3-11) BUN (7-18) mg/dl Creatinine (0.6-1.2) mg/dl Est Cr Clr Drug Dosing ml/min Est GFR ( Amer) Est GFR (Non-Af Amer) BUN/Creatinine Ratio (10-20) Glucose (70-99) mg/dl Calcium (8.5-10.1) mg/dl Magnesium SARS-CoV-2 Ag (Rapid) Negative (Negative) MDM Narrative I did evaluate the patient as noted above. She apparently has a complex sacral fracture as noted above involving the hardware from her surgery. I did speak to Daja Martinez of orthopedic spine. She recommended hospitalization by the hospitalist service with surgical repair on Saturday. I did explain this to the patient who is agreeable. She declined any pain medications at this time. IV access was established. I did order and review the patient's blood work as noted in the electronic medical record. Her white blood cell count is not elevated. She is not anemic. Her INR is supratherapeutic at 3.4. Electrolytes are unremarkable other than a sodium of 135. I did discuss the case with the hospitalist and manager case management. Impression & Plan Closed sacral fracture, Supratherapeutic INR Discharge Plan Visit Data Chief Complaint: Back Injury/Pain Stated Complaint: BACK PAIN ED Provider: Ky Cordon Discharge Problem: Closed sacral fracture, Supratherapeutic INR Patient Disposition: Admitted As Inpatient Discharge Instructions Interventions: ED Discharge Assessment Last Done: 06/08/20 21:30 Discharge Problem: Closed sacral fracture Qualifiers: Encounter type: initial encounter Zone of sacrum fracture: unspecified portion of sacrum Qualified Code(s): S32.10XA - Unspecified fracture of sacrum, initial encounter for closed fracture
[2020-06-08 19:45] LABS: Basophils # (auto) 0.01 K/uL (0-0.2); Basophils % (auto) 0.1 %; Eosinophils # (auto) 0.08 K/uL (0-0.5); Eosinophils % (auto) 0.8 %; Hematocrit (blood only) 42.5 % (37-47); Hemoglobin 13.7 g/dL (12.0-16.0); Immature Granulocytes # (auto) 0.03 K/uL (0.00-0.02); Immature Granulocytes % (auto) 0.3 %; Lymphocytes # (auto) 0.68 K/uL (1.2-3.4); Mean Corpuscular Hemoglobin 29.3 pg (25-34); Mean Corpuscular Hgb Conc 32.2 g/dL (32-36); Mean Corpuscular Volume 90.8 fL (80-100); Mean Platelet Volume 10.4 fL (7.4-10.4); Monocytes # (auto) 0.38 K/uL (0.11-0.59); Monocytes % (auto) 3.9 %; Neutrophils # (auto) 8.55 K/uL (1.4-6.5); Neutrophils % (auto) 87.9 %; Platelet Count 312 K/uL (130-400); RDW Standard Deviation 50.2 fL (36.4-46.3); Red Blood Count 4.68 M/uL (4.2-5.4); White Blood Count 9.73 K/uL (4.8-10.8)
[2020-06-08 20:01] LABS: INR 3.4 (0.9-1.1); Partial Thromboplastin Ratio 1.2; Partial Thromboplastin Time 32.3 Seconds (21.0-31.0); Prothrombin Time 33.5 Seconds (9.0-12.0)
[2020-06-08] MEDS ORDERED: PHYTONADIONE 10 MG in SODIUM CHLORIDE 0.9% 50 ML IV ONE (20:17)
[2020-06-08] MEDS ORDERED: LIDOCAINE 5% 1 PATCH TD SCH (20:20)
[2020-06-08 20:23] LABS: BUN Creatinine Ratio 21.5 (10-20); Calcium 8.6 mg/dl (8.5-10.1); Creatinine Clr Calc Pharmacy 50.8 ml/min; Est GFR (African American) 52.8; Est GFR (Non-African American) 45.6
[2020-06-08] MEDS ORDERED: LIDOCAINE 5% 1 PATCH TD ONE (20:24)
[2020-06-08] MEDS ORDERED: HYDROmorphone INJ 0.5 MG/0.5 ML SYR IV STA (20:43)
--- NOTE | 2020-06-08 20:47 | History & Physical Report ---
Date of Service June 08, 2020 Assessment & Plan (1) Closed sacral fracture: Recent back surgery HTN, slight elevated secondary discomfort AF on Coumadin, rate controlled, INR supratherapeutic hyperlipidemia on statin Rx Parkinson's disease, stable on regimen DM 2 diet-controlled, well-controlled as of recent outpatient hemoglobin A1c of 6.23 April 2020 Borderline hyperkalemia Medical telemetry given blood pressure elevation Analgesia Facilitate home BP meds Hold losartan for now given borderline hyperkalemia, gentle IVF Orthopedic spine consult RE sacral fracture (ER provider already in touch with Daja Martinez PA-C of [facility] who recommends possible surgery on Saturday, 06/10) Vitamin K 1 dose now to reverse Coumadin coagulopathy in preparation for surgery. Facilitate Parkinson's disease medication regimen ISS BG goal [id number] DVT prophylaxis. SCDs while Coumadin on hold if INR less than 2 Full code Patient requests for her brother to be updated of plan of care. Mr. Torrey GrimmJr amy. thru contact #[phone]. Text document was generated using [employer] voice recognition software. It may contain grammatical or spelling errors. Kindly contact undersigned for clarification of any documentation item in question. History of Present Illness Chief Complaint: Back pain Primary Care Provider: Titi Baez DO History obtained from patient and records. Medical history significant for PAF on Coumadin, hypertension, hyperlipidemia, Parkinson's disease, DM 2 diet-controlled. Last confinement under Orthopedics service 2.5 weeks ago for elective back surgery for lumbar spinal stenosis with neurogenic claudication. Patient discharged to [facility] facility. Patient noted worsening low back pain the last few days aggravated by walking. Bilateral lower extremity weakness as per patient. Usual urinary incontinence. No fever, no chills.. No recent trauma. Additional pain medications given at rehab facility ineffective for discomfort. Patient brought to the ER for evaluation after abnormal outpatient CT lumbar spine results noted. 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 Allergies Allergy/AdvReac Type Severity Reaction Status Date / Time pramipexole AdvReac Unknown hallucinati Verified 06/08/20 21:04 ons Home Medications Medication Instructions Recorded Confirmed Type atorvastatin [Lipitor] 80 mg PO PM 01/21/20 06/08/20 History calcitriol 0.5 mcg PO 1200 01/21/20 06/08/20 History carbidopa-levodopa [Sinemet] 1 tab PO QID 01/21/20 06/08/20 History cholecalciferol (vitamin D3) 25 mcg PO BID 01/21/20 06/08/20 History [Vitamin D3] diltiazem HCl [Cardizem] 120 mg PO 1200 01/21/20 06/08/20 History entacapone [Comtan] 200 mg PO TID 01/21/20 06/08/20 History escitalopram oxalate [Lexapro] 10 mg PO QAM 01/21/20 06/08/20 History lorazepam [Ativan] 0.5 mg PO BID 01/21/20 06/08/20 History raloxifene 60 mg PO 1200 01/21/20 06/08/20 History valsartan [Diovan] 80 mg PO 1200 01/21/20 06/08/20 History warfarin 5 mg PO QPM 01/21/20 06/08/20 History oxycodone 5 mg PO Q6H PRN #20 tab 05/18/20 06/08/20 Rx tramadol 50 mg PO Q6H PRN #20 tab 05/18/20 06/08/20 Rx Naloxone 4mg/0.1ml 4 mg INHALATION UD PRN 06/08/20 06/08/20 History Past Med/Surg History Medical History (Updated 06/08/20 @ 20:36 by Ky Cordon MD) Anxiety Atrial fibrillation paroxysmal on warfarin CKD (chronic kidney disease) Depression DM type 2 (diabetes mellitus, type 2) diet controlled Hyperlipidemia Hypertension Obesity Osteoarthritis Parkinsons disease Urinary incontinence Vertigo Surgical History History of cholecystectomy lap cholecystectomy: 01/26/20: Grade 1 view, MAC#3, ETT 7 at [facility] History of incision and drainage shoulder> PT UNSURE OF DETAILS Hx of breast biopsy LEFT Hx of colonoscopy Family History Mother Atrial fibrillation Father Myocardial infarction Social History Smoking Status: Never smoker Second Hand Exposure: No; Hx Alcohol Use: No Hx Substance Use: No Preferred Language: Latvian Communication Ability: Effective 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 Beliefs That Will Affect Care: None marital status: / Current Living Situation: Family Current Living Situation Comment: Lives in a house Other Information That Helps Us Care for You: No Feels Safe at Home: Yes Assistive Devices: Walker Review of Systems Review of Systems: As per HPI, all 10 systems reviewed, all other ROS negative Physical Exam Physical Exam: GENERAL: uncomfortable, no respiratory distress SKIN: Normal color, warm HEENT: [place] palpebral conjunctivae, no ptosis, dry buccal mucosa NECK : Supple, no tenderness CHEST : CTA, no tenderness HEART : Irregular, no obvious murmurs ABDOMEN: Some distention, nontender BACK : Low back tenderness, bilateral straight leg raise test positive EXTREMITIES : No LE swelling/tenderness, no other conspicuous deformities noted NEUROLOGIC : Coherent, no facial asymmetry, no other gross focality Results & Data Results & Data ([facility]) Vital Signs (Past 12 Hours) Vital Signs Temp Pulse Resp BP Pulse Ox 06/08/20 18:06 37.3 C 75 20 115/94 94 Laboratory Results Laboratory Results WBC 9.73 K/uL (4.8-10.8) 06/08/20 19:32 RBC 4.68 M/uL (4.2-5.4) 06/08/20 19:32 Hgb 13.7 g/dL (12.0-16.0) 06/08/20 19:32 Hct 42.5 % (37-47) 06/08/20 19:32 MCV 90.8 fL (80-100) 06/08/20 19:32 MCH 29.3 pg (25-34) 06/08/20 19:32 MCHC 32.2 g/dL (32-36) 06/08/20 19:32 RDW Std Deviation 50.2 fL (36.4-46.3) H 06/08/20 19:32 RDW Coeff of Ratna 15.0 % (11.5-14.5) H 06/08/20 19:32 Plt Count 312 K/uL (130-400) 06/08/20 19:32 MPV 10.4 fL (7.4-10.4) 06/08/20 19:32 Immature Gran % (Auto) 0.3 % 06/08/20 19:32 Neut % (Auto) 87.9 % 06/08/20 19:32 Lymph % (Auto) 7.0 % 06/08/20 19:32 [place] % (Auto) 3.9 % 06/08/20 19:32 Eos % (Auto) 0.8 % 06/08/20 19:32 Baso % (Auto) 0.1 % 06/08/20 19:32 Neut # (Auto) 8.55 K/uL (1.4-6.5) H 06/08/20 19:32 Lymph # (Auto) 0.68 K/uL (1.2-3.4) L 06/08/20 19:32 [place] # (Auto) 0.38 K/uL (0.11-0.59) 06/08/20 19:32 Eos # (Auto) 0.08 K/uL (0-0.5) 06/08/20 19:32 Baso # (Auto) 0.01 K/uL (0-0.2) 06/08/20 19:32 Immature Gran # (Auto) 0.03 K/uL (0.00-0.02) H 06/08/20 19:32 PT 33.5 Seconds (9.0-12.0) H 06/08/20 19:32 INR 3.4 (0.9-1.1) H 06/08/20 19:32 APTT 32.3 Seconds (21.0-31.0) H 06/08/20 19:32 PTT Ratio 1.2 06/08/20 19:32 Sodium 135 mmol/L (136-145) L 06/08/20 19:32 Potassium mmol/L (3.5-5.1) 06/08/20 19:32 Chloride 106 mmol/L (98-107) 06/08/20 19:32 Carbon Dioxide 29 mmol/L (21-32) 06/08/20 19:32 Anion Gap 0 (3-11) L 06/08/20 19:32 BUN 26 mg/dl (7-18) H 06/08/20 19:32 Creatinine 1.19 mg/dl (0.6-1.2) 06/08/20 19:32 Est Cr Clr Drug Dosing 50.8 ml/min 11/18/20 19:32 Est GFR ( Amer) 52.8 06/08/20 19:32 Est GFR (Non-Af Amer) 45.6 06/08/20 19:32 BUN/Creatinine Ratio 21.5 (10-20) H 06/08/20 19:32 Glucose 128 mg/dl (70-99) H 06/08/20 19:32 Calcium 8.6 mg/dl (8.5-10.1) 06/08/20 19:32 Magnesium Cancelled 06/08/20 19:32 SARS-CoV-2 Ag (Rapid) Negative (Negative) 06/08/20 20:[address] lumbar spine: 1. There is a complex sacral fracture as above which involves the right interpedicular screw at S1. 2. There is a spinous process fracture and right transverse process fracture of L4. 3. There are bilateral transverse process fractures of L5. 4. There is postoperative change from L4-S1 spinal fusion. The orthopedic hardw are appears intact. 5. Lucency around the right interpedicular screw at S1 suggests loosening. (1) Closed sacral fracture Encounter type: initial encounter Zone of sacrum fracture: unspecified portion of sacrum Qualified Code(s): S32.10XA - Unspecified fracture of sacrum, initial encounter for closed fracture
[2020-06-08 21:26] LABS: Magnesium 2.4 mg/dl (1.8-2.4)
[2020-06-08] MEDS ORDERED: GLUCOSE 10 TABS/TUBE PO PRN (22:07)
[2020-06-08] MEDS ORDERED: DEXTROSE 50% 50 ML SYRINGE IV PRN (22:07)
[2020-06-08] MEDS ORDERED: PROMETHAZINE HCL 6.25 MG in SODIUM CHLORIDE 0.9% 50 ML IV PRN (22:07)
[2020-06-08] MEDS ORDERED: GLUCAGON FOR INJ 1 MG VIAL SQ PRN (22:07)
[2020-06-08] MEDS ORDERED: CARBOHYDRATES FOR HYPOGLYCEMIA PO PRN (22:07)
[2020-06-08] MEDS ORDERED: SODIUM CHLORIDE 0.9% 500 ML IV ONE (22:07)
[2020-06-08] MEDS ORDERED: GLUCOSE 40% GEL 15 GM TUBE PO PRN (22:07)
[2020-06-08] MEDS: ENTACAPONE 200 MG TAB PO SCH (22:41)
[2020-06-08] MEDS: CARBIDOPA/LEVODOPA 25-250 1 EA TAB PO SCH (22:41)
[2020-06-08] MEDS: LORazepam 0.5 MG TAB PO SCH (22:42)
[2020-06-08] MEDS: INSULIN ASPART 100 UNITS/ML 3 ML PEN SC SCH (22:44)
[2020-06-09 06:49] LABS: INR 1.6 (0.9-1.1); Prothrombin Time 16.4 Seconds (9.0-12.0)
[2020-06-09 06:50] LABS: Basophils # (auto) 0.01 K/uL (0-0.2); Basophils % (auto) 0.1 %; Eosinophils # (auto) 0.18 K/uL (0-0.5); Eosinophils % (auto) 2.2 %; Hematocrit (blood only) 39.6 % (37-47); Hemoglobin 12.7 g/dL (12.0-16.0); Immature Granulocytes # (auto) 0.03 K/uL (0.00-0.02); Immature Granulocytes % (auto) 0.4 %; Lymphocytes # (auto) 1.48 K/uL (1.2-3.4); Lymphocytes % (auto) 17.9 %; Mean Corpuscular Hemoglobin 29.4 pg (25-34); Mean Corpuscular Hgb Conc 32.1 g/dL (32-36); Mean Corpuscular Volume 91.7 fL (80-100); Mean Platelet Volume 10.3 fL (7.4-10.4); Monocytes # (auto) 0.62 K/uL (0.11-0.59); Monocytes % (auto) 7.5 %; Neutrophils # (auto) 5.95 K/uL (1.4-6.5); Neutrophils % (auto) 71.9 %; Platelet Count 296 K/uL (130-400); RDW Coefficient of Variation 14.9 % (11.5-14.5); RDW Standard Deviation 50.5 fL (36.4-46.3); Red Blood Count 4.32 M/uL (4.2-5.4); White Blood Count 8.27 K/uL (4.8-10.8)
[2020-06-09 07:25] LABS: BUN Creatinine Ratio 22.5 (10-20); Calcium 8.4 mg/dl (8.5-10.1); Creatinine Clr Calc Pharmacy 50.7 ml/min; Est GFR (African American) 56.2; Est GFR (Non-African American) 48.5; Potassium 4.2 mmol/L (3.5-5.1)
--- NOTE | 2020-06-09 08:27 | Orthopedic Consultation ---
Date of Consultation June 09, 2020 Assessment & Plan (1) Closed sacral fracture: At this time the patient does have significant fracture of the sacrum. I explained the patient that we may want to consider stabilization of this fracture in order to begin mobilization. Otherwise were looking at prolonged bedrest with transfers only which would only contribute to further weakness and other comorbidities. At this time she is comfortable with moving toward surgery. It would require extending the lumbar fusion to the pelvis by way of iliac bolts. Risk benefits pros cons and alternatives were outlined in detail. This time entire surgery range formed or stop in time. Present on Admission?: Yes History of Present Illness Reason for Consultation: Sacral fracture Attending Physician: Anurag Mendosa MD History of Present Illness This is a 74-year-old female known to me that status post lumbar decompression fusion. Unfortunately she has progressed to a sacral fracture beneath the fusion construct. This is significantly limiting her ability to stand and ambulate. Is quite painful. She describes some pain left buttock and left upper thigh but not radicular nature. She denies any precipitating trauma fall or event that may have caused this fracture. Allergies Allergy/AdvReac Type Severity Reaction Status Date / Time pramipexole AdvReac Unknown hallucinati Verified 06/08/20 21:04 ons Home Medications Medication Instructions Recorded Confirmed Type atorvastatin [Lipitor] 80 mg PO PM 01/21/20 06/08/20 History calcitriol 0.5 mcg PO 1200 01/21/20 06/08/20 History carbidopa-levodopa [Sinemet] 1 tab PO QID 01/21/20 06/08/20 History cholecalciferol (vitamin D3) 25 mcg PO BID 01/21/20 06/08/20 History [Vitamin D3] diltiazem HCl [Cardizem] 120 mg PO 1200 01/21/20 06/08/20 History entacapone [Comtan] 200 mg PO TID 01/21/20 06/08/20 History escitalopram oxalate [Lexapro] 10 mg PO QAM 01/21/20 06/08/20 History lorazepam [Ativan] 0.5 mg PO BID 01/21/20 06/08/20 History raloxifene 60 mg PO 1200 01/21/20 06/08/20 History valsartan [Diovan] 80 mg PO 1200 01/21/20 06/08/20 History warfarin 5 mg PO QPM 01/21/20 06/08/20 History oxycodone 5 mg PO Q6H PRN #20 tab 05/18/20 06/08/20 Rx tramadol 50 mg PO Q6H PRN #20 tab 05/18/20 06/08/20 Rx Naloxone 4mg/0.1ml 4 mg INHALATION UD PRN 06/08/20 06/08/20 History Patient History Medical History (Updated 06/08/20 @ 20:36 by Ky Cordon MD) Anxiety Atrial fibrillation paroxysmal on warfarin CKD (chronic kidney disease) Depression DM type 2 (diabetes mellitus, type 2) diet controlled Hyperlipidemia Hypertension Obesity Osteoarthritis Parkinsons disease Urinary incontinence Vertigo Surgical History History of cholecystectomy lap cholecystectomy: 01/26/20: Grade 1 view, MAC#3, ETT 7 at [facility] History of incision and drainage shoulder> PT UNSURE OF DETAILS Hx of breast biopsy LEFT Hx of colonoscopy Family History Mother Atrial fibrillation Father Myocardial infarction Social History Smoking Status: Never smoker Second Hand Exposure: No; Hx Alcohol Use: No Hx Substance Use: No Preferred Language: Amharic Communication Ability: Effective 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 She seems to have reasonable strength lower extremities but breakaway weakness. Sensory is intact. Results & Data ([facility]) Vital Signs (Past 12 Hours) Vital Signs Temp Pulse Pulse Resp BP BP Pulse Ox 06/09/20 07:18 36.4 C L 84 20 145/78 H 96 06/09/20 07:16 66 06/09/20 03:00 36.5 C 81 18 158/97 H 92 06/09/20 01:00 80 06/09/20 00:00 61 06/08/20 23:00 36.7 C 74 20 131/83 97 06/08/20 22:10 36.7 C 16 144/80 H 98 06/08/20 21:30 72 18 143/80 H 95 (1) Closed sacral fracture Encounter type: initial encounter Zone of sacrum fracture: unspecified portion of sacrum Qualified Code(s): S32.10XA - Unspecified fracture of sacrum, initial encounter for closed fracture
[2020-06-09] MEDS: oxyCODONE HCL IR 5 MG TAB (IMMEDIATE RELEASE) PO PRN ×2 (08:32→17:31)
[2020-06-09] MEDS: ESCITALOPRAM OXALATE 10 MG TAB PO SCH (08:34)
[2020-06-09] MEDS: CHOLECALCIFEROL 1,000 UNITS 25 MCG TAB PO SCH ×2 (08:34→21:04)
[2020-06-09] MEDS: ENTACAPONE 200 MG TAB PO SCH ×3 (08:34→20:19)
[2020-06-09] MEDS: CARBIDOPA/LEVODOPA 25-250 1 EA TAB PO SCH ×4 (08:35→20:19)
[2020-06-09] MEDS: LORazepam 0.5 MG TAB PO SCH ×2 (08:36→20:19)
[2020-06-09] MEDS: INSULIN ASPART 100 UNITS/ML 3 ML PEN SC SCH ×4 (08:38→20:13)
--- NOTE | 2020-06-09 08:57 | Hospitalist Progress Note ---
Date of Service June 09, 2020 Assessment & Plan (1) Closed sacral fracture: Recent back surgery, status post lumbar decompression fusion Unfortunately she has progressed to a sacral fracture beneath the fusion construct osteoporotic fractures of sacrum, L4 right transverse process and L5 bilateral transverse processes. Closed sacral fracture HTN, slight elevated secondary discomfort AF on Coumadin, rate controlled, INR supratherapeutic on admission, now 1.6 hyperlipidemia on statin Rx Parkinson's disease, stable on regimen, Facilitate Parkinson's disease medication regimen DM 2 diet-controlled, well-controlled as of recent outpatient hemoglobin A1c of 6.23 April 2020, ISS BG goal [id number] Borderline hyperkalemia Medical telemetry given blood pressure elevation Analgesia Facilitate home BP meds Hold losartan for now given borderline hyperkalemia, gentle IVF Orthopedic spine consult RE sacral fracture (ER provider already in touch with Daja Martinez PA-C of [facility] [place] who recommends possible surgery on Saturday, 06/10) Vitamin K 1 dose now to reverse Coumadin coagulopathy in preparation for surgery on admission Seen by ortho, plan for surgical stabilization, which would require extending the lumbar fusion to the pelvis by way of iliac bolts DVT prophylaxis. SCDs while Coumadin on hold if INR less than 2 Full code Patient's brother, Mr. Torrey PhanJr. to be contacted at #[phone]. Admission and Anticipated Discharge Date Admission Date: June 08, 2020 Subjective Patient is lying in bed, in no acute distress, however appears slightly uncomfortable due to back pain. Denies any fevers, chills, chest pain, shortness of breath, abdominal pain, nausea or vomiting. Review of Systems Review of Systems: All systems reviewed & are unremarkable except as noted in HPI & below Constitutional: no fever and no chills Respiratory: no cough and no dyspnea Cardiovascular: no chest pain and no palpitations Gastrointestinal: no abdominal pain, no nausea and no vomiting Physical Exam Physical Exam: GENERAL: elderly female laying in bed, in NAD HEENT: NC/AT, [place] palpebral conjunctivae, no ptosis, dry buccal mucosa NECK : Supple, no tenderness CHEST : CTA, no tenderness HEART : Irregular, no obvious murmurs ABDOMEN: Some distention, nontender, + bowel sounds, obese BACK : Low back tenderness, bilateral straight leg raise test positive EXTREMITIES : No LE swelling/tenderness, moves extremities SKIN: Normal color, warm NEUROLOGIC : alert and oriented x3, no facial asymmetry, speech fluent but slow, moves extremities Results & Data Results & Data ([facility]) Vital Signs (Past 12 Hours) Vital Signs Temp Pulse Pulse Resp BP BP Pulse Ox 06/09/20 07:18 36.4 C L 84 20 145/78 H 96 06/09/20 07:16 66 06/09/20 03:00 36.5 C 81 18 158/97 H 92 06/09/20 01:00 80 06/09/20 00:00 61 06/08/20 23:00 36.7 C 74 20 131/83 97 06/08/20 22:10 36.7 C 16 144/80 H 98 06/08/20 21:30 72 18 143/80 H 95 Laboratory Results 06/09/20 06/09/20 06/09/20 Range/Units 07:35 06:22 06:22 WBC (4.8-10.8) K/uL RBC (4.2-5.4) M/uL Hgb (12.0-16.0) g/dL Hct (37-47) % MCV (80-100) fL MCH (25-34) pg MCHC (32-36) g/dL RDW Std Deviation (36.4-46.3) fL RDW Coeff of Ratna (11.5-14.5) % Plt Count (130-400) K/uL MPV (7.4-10.4) fL Immature Gran % (Auto) % Neut % (Auto) % Lymph % (Auto) % [place] % (Auto) % Eos % (Auto) % Baso % (Auto) % Neut # (Auto) (1.4-6.5) K/uL Lymph # (Auto) (1.2-3.4) K/uL [place] # (Auto) (0.11-0.59) K/uL Eos # (Auto) (0-0.5) K/uL Baso # (Auto) (0-0.2) K/uL Immature Gran # (Auto) (0.00-0.02) K/uL PT 16.4 H (9.0-12.0) Seconds INR 1.6 H (0.9-1.1) APTT (21.0-31.0) Seconds PTT Ratio Sodium 141 (136-145) mmol/L Potassium 4.2 D (3.5-5.1) mmol/L Chloride 108 H (98-107) mmol/L Carbon Dioxide 31 (21-32) mmol/L Anion Gap 2.0 L (3-11) BUN 25 H (7-18) mg/dl Creatinine 1.13 (0.6-1.2) mg/dl Est Cr Clr Drug Dosing 50.7 ml/min Est GFR ( Amer) 56.2 Est GFR (Non-Af Amer) 48.5 BUN/Creatinine Ratio 22.5 H (10-20) Glucose 86 (70-99) mg/dl POC Glucose 86 (70-99) mg/dl Calcium 8.4 L (8.5-10.1) mg/dl Magnesium SARS-CoV-2 Ag (Rapid) (Negative) Blood Type Antibody Screen 06/09/20 06/09/20 06/08/20 Range/Units 06:22 06:22 22:43 WBC 8.27 (4.8-10.8) K/uL RBC 4.32 (4.2-5.4) M/uL Hgb 12.7 (12.0-16.0) g/dL Hct 39.6 (37-47) % MCV 91.7 (80-100) fL MCH 29.4 (25-34) pg MCHC 32.1 (32-36) g/dL RDW Std Deviation 50.5 H (36.4-46.3) fL RDW Coeff of Ratna 14.9 H (11.5-14.5) % Plt Count 296 (130-400) K/uL MPV 10.3 (7.4-10.4) fL Immature Gran % (Auto) 0.4 % Neut % (Auto) 71.9 % Lymph % (Auto) 17.9 % [place] % (Auto) 7.5 % Eos % (Auto) 2.2 % Baso % (Auto) 0.1 % Neut # (Auto) 5.95 (1.4-6.5) K/uL Lymph # (Auto) 1.48 (1.2-3.4) K/uL [place] # (Auto) 0.62 H (0.11-0.59) K/uL Eos # (Auto) 0.18 (0-0.5) K/uL Baso # (Auto) 0.01 (0-0.2) K/uL Immature Gran # (Auto) 0.03 H (0.00-0.02) K/uL PT (9.0-12.0) Seconds INR (0.9-1.1) APTT (21.0-31.0) Seconds PTT Ratio Sodium (136-145) mmol/L Potassium (3.5-5.1) mmol/L Chloride (98-107) mmol/L Carbon Dioxide (21-32) mmol/L Anion Gap (3-11) BUN (7-18) mg/dl Creatinine (0.6-1.2) mg/dl Est Cr Clr Drug Dosing ml/min Est GFR ( Amer) Est GFR (Non-Af Amer) BUN/Creatinine Ratio (10-20) Glucose (70-99) mg/dl POC Glucose 118 H (70-99) mg/dl Calcium (8.5-10.1) mg/dl Magnesium SARS-CoV-2 Ag (Rapid) (Negative) Blood Type O Positive Antibody Screen NEGATIVE 06/08/20 06/08/20 06/08/20 Range/Units 21:07 20:03 19:32 WBC 9.73 (4.8-10.8) K/uL RBC 4.68 (4.2-5.4) M/uL Hgb 13.7 (12.0-16.0) g/dL Hct 42.5 (37-47) % MCV 90.8 (80-100) fL MCH 29.3 (25-34) pg MCHC 32.2 (32-36) g/dL RDW Std Deviation 50.2 H (36.4-46.3) fL RDW Coeff of Ratna 15.0 H (11.5-14.5) % Plt Count 312 (130-400) K/uL MPV 10.4 (7.4-10.4) fL Immature Gran % (Auto) 0.3 % Neut % (Auto) 87.9 % Lymph % (Auto) 7.0 % [place] % (Auto) 3.9 % Eos % (Auto) 0.8 % Baso % (Auto) 0.1 % Neut # (Auto) 8.55 H (1.4-6.5) K/uL Lymph # (Auto) 0.68 L (1.2-3.4) K/uL [place] # (Auto) 0.38 (0.11-0.59) K/uL Eos # (Auto) 0.08 (0-0.5) K/uL Baso # (Auto) 0.01 (0-0.2) K/uL Immature Gran # (Auto) 0.03 H (0.00-0.02) K/uL PT (9.0-12.0) Seconds INR (0.9-1.1) APTT (21.0-31.0) Seconds PTT Ratio Sodium (136-145) mmol/L Potassium 5.0 (3.5-5.1) mmol/L Chloride (98-107) mmol/L Carbon Dioxide (21-32) mmol/L Anion Gap (3-11) BUN (7-18) mg/dl Creatinine (0.6-1.2) mg/dl Est Cr Clr Drug Dosing ml/min Est GFR ( Amer) Est GFR (Non-Af Amer) BUN/Creatinine Ratio (10-20) Glucose (70-99) mg/dl POC Glucose (70-99) mg/dl Calcium (8.5-10.1) mg/dl Magnesium 2.4 SARS-CoV-2 Ag (Rapid) Negative (Negative) Blood Type Antibody Screen 06/08/20 06/08/20 Range/Units 19:32 19:32 WBC (4.8-10.8) K/uL RBC (4.2-5.4) M/uL Hgb (12.0-16.0) g/dL Hct (37-47) % MCV (80-100) fL MCH (25-34) pg MCHC (32-36) g/dL RDW Std Deviation (36.4-46.3) fL RDW Coeff of Ratna (11.5-14.5) % Plt Count (130-400) K/uL MPV (7.4-10.4) fL Immature Gran % (Auto) % Neut % (Auto) % Lymph % (Auto) % [place] % (Auto) % Eos % (Auto) % Baso % (Auto) % Neut # (Auto) (1.4-6.5) K/uL Lymph # (Auto) (1.2-3.4) K/uL [place] # (Auto) (0.11-0.59) K/uL Eos # (Auto) (0-0.5) K/uL Baso # (Auto) (0-0.2) K/uL Immature Gran # (Auto) (0.00-0.02) K/uL PT 33.5 H (9.0-12.0) Seconds INR 3.4 H (0.9-1.1) APTT 32.3 H (21.0-31.0) Seconds PTT Ratio 1.2 Sodium 135 L (136-145) mmol/L Potassium (3.5-5.1) mmol/L Chloride 106 (98-107) mmol/L Carbon Dioxide 29 (21-32) mmol/L Anion Gap 0 L (3-11) BUN 26 H (7-18) mg/dl Creatinine 1.19 (0.6-1.2) mg/dl Est Cr Clr Drug Dosing 50.8 ml/min Est GFR ( Amer) 52.8 Est GFR (Non-Af Amer) 45.6 BUN/Creatinine Ratio 21.5 H (10-20) Glucose 128 H (70-99) mg/dl POC Glucose (70-99) mg/dl Calcium 8.6 (8.5-10.1) mg/dl Magnesium Cancelled SARS-CoV-2 Ag (Rapid) (Negative) Blood Type Antibody Screen (1) Closed sacral fracture Encounter type: initial encounter Zone of sacrum fracture: unspecified portion of sacrum Qualified Code(s): S32.10XA - Unspecified fracture of sacrum, initial encounter for closed fracture
[2020-06-09] MEDS: dilTIAZem HCL 120 MG CAPCR PO SCH (13:03)
[2020-06-09] MEDS: CALCITRIOL 0.25 MCG CAPSULE PO SCH (13:04)
[2020-06-09] MEDS: RALOXIFENE HCL 60 MG TAB PO SCH (13:04)
[2020-06-09] MEDS: ATORVASTATIN 40 MG TAB PO SCH (20:19)
[2020-06-09] MEDS: LIDOCAINE 5% 1 PATCH TD SCH (21:04)
--- NOTE | 2020-06-09 22:39 | Electrocardiogram Report ---
Test Reason : Blood Pressure : / mmHG Vent. Rate : 071 BPM Atrial Rate : 000 BPM P-R Int : 000 ms QRS Dur : 088 ms QT Int : 406 ms P-R-T Axes : 000 -09 021 degrees QTc Int : 441 ms Atrial fibrillation Anterolateral infarct , age undetermined Abnormal ECG No previous ECGs available Confirmed by mK Still ([id number]) on 06/09/2020 10:38:52 PM Referred By: REFERRED SELF Confirmed By:Km Still
[2020-06-09] MEDS ORDERED: Nursing to Pharmacy Communication SCH (23:30)
[2020-06-10] MEDS: oxyCODONE HCL IR 5 MG TAB (IMMEDIATE RELEASE) PO PRN (01:52)
[2020-06-10] MEDS: INSULIN ASPART 100 UNITS/ML 3 ML PEN SC SCH ×4 (06:00→21:09)
[2020-06-10] MEDS: HYDROmorphone INJ 0.5 MG/0.5 ML SYR IV PRN ×2 (06:17)
[2020-06-10 06:54] LABS: Hematocrit (blood only) 43.8 % (37-47); Mean Corpuscular Hemoglobin 29.1 pg (25-34); Mean Corpuscular Volume 91.1 fL (80-100); Mean Platelet Volume 10.8 fL (7.4-10.4); Platelet Count 306 K/uL (130-400); RDW Coefficient of Variation 15.2 % (11.5-14.5); RDW Standard Deviation 50.5 fL (36.4-46.3); Red Blood Count 4.81 M/uL (4.2-5.4); White Blood Count 9.12 K/uL (4.8-10.8)
[2020-06-10 07:21] LABS: BUN Creatinine Ratio 22.4 (10-20); Calcium 8.5 mg/dl (8.5-10.1); Creatinine Clr Calc Pharmacy 45.1 ml/min; Est GFR (African American) 48.8; Est GFR (Non-African American) 42.1; Potassium 4.1 mmol/L (3.5-5.1)
[2020-06-10 07:56] LABS: INR 1.2 (0.9-1.1); Prothrombin Time 12.3 Seconds (9.0-12.0)
--- NOTE | 2020-06-10 08:03 | Hospitalist Progress Note ---
Date of Service June 10, 2020 Assessment & Plan (1) Closed sacral fracture: Recent back surgery, status post lumbar decompression fusion w/ Dr. 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 Closed sacral fracture Orthopedic spine consult RE sacral fracture Now pt is s/p surgical stabilization, which required extending the lumbar fusion to the pelvis by way of iliac bolts 06/10/20 (earlier today) Pt tolerated procedure well Monitor H&H Analgesia Post op recommendations by surgery HTN, slight elevated secondary discomfort, Facilitate home BP meds Held losartan on admission given borderline hyperkalemia, gentle IVF Medical telemetry given blood pressure elevation AF on Coumadin, rate controlled, INR supratherapeutic on admission, now 1.2 Vitamin K 1 dose given on admission to reverse Coumadin coagulopathy in preparation for surgery Hyperlipidemia on statin Rx Parkinson's disease, stable on regimen, Facilitate Parkinson's disease medication regimen DM 2 diet-controlled, well-controlled as of recent outpatient hemoglobin A1c of 6.3% April 2020, ISS BG goal [id number] Borderline hyperkalemia, current K4.1 DVT prophylaxis. SCDs while Coumadin on hold if INR less than 2 Full code Patient's brother, Mr. Torrey GrimmJr amy. to be contacted at #[phone]. Admission and Anticipated Discharge Date Admission Date: June 08, 2020 Subjective Patient is laying in bed, in no acute distress, very sleepy after surgery/ anesthesia but easily arousable and answering questions appropriately. Denies any fevers, chills, chest pain, shortness of breath, abdominal pain, nausea or vomiting. No reports of pain in general at this time. Review of Systems Review of Systems: All systems reviewed & are unremarkable except as noted in HPI & below Constitutional: no fever and no chills Respiratory: no cough and no dyspnea Cardiovascular: no chest pain and no palpitations Gastrointestinal: no abdominal pain, no nausea and no vomiting Physical Exam Physical Exam: GENERAL: elderly female laying in bed, in NAD HEENT: NC/AT, [place] palpebral conjunctivae, no ptosis, dry buccal mucosa NECK : Supple, no tenderness CHEST : CTA, no tenderness HEART : Irregular, no obvious murmurs ABDOMEN: Some distention, nontender, + bowel sounds, obese BACK : Low back tenderness, bilateral straight leg raise test positive EXTREMITIES : No LE swelling/tenderness, moves extremities SKIN: Normal color, warm NEUROLOGIC : alert and oriented x3, no facial asymmetry, speech fluent but slow, moves extremities Results & Data Results & Data ([facility]) Vital Signs (Past 12 Hours) Vital Signs Temp Pulse Pulse Resp BP Pulse Ox 06/10/20 04:00 36.5 C 96 H 22 169/90 H 95 06/09/20 23:21 95 H 06/09/20 22:00 37.0 C 91 H 22 129/77 94 Laboratory Results 06/10/20 06/10/20 06/10/20 Range/Units 07:35 06:09 06:09 WBC 9.12 (4.8-10.8) K/uL RBC 4.81 (4.2-5.4) M/uL Hgb 14.0 (12.0-16.0) g/dL Hct 43.8 (37-47) % MCV 91.1 (80-100) fL MCH 29.1 (25-34) pg MCHC 32.0 (32-36) g/dL RDW Std Deviation 50.5 H (36.4-46.3) fL RDW Coeff of Ratna 15.2 H (11.5-14.5) % Plt Count 306 (130-400) K/uL MPV 10.8 H (7.4-10.4) fL PT 12.3 H (9.0-12.0) Seconds INR 1.2 H (0.9-1.1) Sodium 142 (136-145) mmol/L Potassium 4.1 (3.5-5.1) mmol/L Chloride 111 H (98-107) mmol/L Carbon Dioxide 26 (21-32) mmol/L Anion Gap 5.0 (3-11) BUN 29 H (7-18) mg/dl Creatinine 1.27 H (0.6-1.2) mg/dl Est Cr Clr Drug Dosing 45.1 ml/min Est GFR ( Amer) 48.8 Est GFR (Non-Af Amer) 42.1 BUN/Creatinine Ratio 22.4 H (10-20) Glucose 122 H (70-99) mg/dl POC Glucose (70-99) mg/dl Calcium 8.5 (8.5-10.1) mg/dl 11/06/09/20 06/09/20 Range/Units 05:59 20:02 16:51 WBC (4.8-10.8) K/uL RBC (4.2-5.4) M/uL Hgb (12.0-16.0) g/dL Hct (37-47) % MCV (80-100) fL MCH (25-34) pg MCHC (32-36) g/dL RDW Std Deviation (36.4-46.3) fL RDW Coeff of Ratna (11.5-14.5) % Plt Count (130-400) K/uL MPV (7.4-10.4) fL PT (9.0-12.0) Seconds INR (0.9-1.1) Sodium (136-145) mmol/L Potassium (3.5-5.1) mmol/L Chloride (98-107) mmol/L Carbon Dioxide (21-32) mmol/L Anion Gap (3-11) BUN (7-18) mg/dl Creatinine (0.6-1.2) mg/dl Est Cr Clr Drug Dosing ml/min Est GFR ( Amer) Est GFR (Non-Af Amer) BUN/Creatinine Ratio (10-20) Glucose (70-99) mg/dl POC Glucose 121 H 133 H 124 H (70-99) mg/dl Calcium (8.5-10.1) mg/dl 06/09/20 Range/Units 11:37 WBC (4.8-10.8) K/uL RBC (4.2-5.4) M/uL Hgb (12.0-16.0) g/dL Hct (37-47) % MCV (80-100) fL MCH (25-34) pg MCHC (32-36) g/dL RDW Std Deviation (36.4-46.3) fL RDW Coeff of Ratna (11.5-14.5) % Plt Count (130-400) K/uL MPV (7.4-10.4) fL PT (9.0-12.0) Seconds INR (0.9-1.1) Sodium (136-145) mmol/L Potassium (3.5-5.1) mmol/L Chloride (98-107) mmol/L Carbon Dioxide (21-32) mmol/L Anion Gap (3-11) BUN (7-18) mg/dl Creatinine (0.6-1.2) mg/dl Est Cr Clr Drug Dosing ml/min Est GFR ( Amer) Est GFR (Non-Af Amer) BUN/Creatinine Ratio (10-20) Glucose (70-99) mg/dl POC Glucose 92 (70-99) mg/dl Calcium (8.5-10.1) mg/dl Medications Administered Current Inpatient Medications Acetaminophen (Acetaminophen 325 Mg Tab) 650 mg PO Q4H PRN PRN Reason: Pain or Fever Stop: 07/08/20 22:06 Atorvastatin Calcium (Atorvastatin 40 Mg Tab) 80 mg PO PM CRISTAL Stop: 07/09/20 20:59 Last Admin: 06/09/20 20:19 Dose: 80 mg Documented by: Calcitriol (Calcitriol 0.25 Mcg Capsule) 0.5 mcg PO DAILY@1200 CRISTAL Stop: 07/09/20 11:59 Last Admin: 06/09/20 13:04 Dose: 0.5 mcg Documented by: Carbidopa/Levodopa (Carbidopa/Levodopa 25-250 1 Ea Tab) 1 tab PO 0900,1200,1600,2100 CRISTAL Stop: 07/08/20 22:17 Last Admin: 06/09/20 20:19 Dose: 1 tab Documented by: Dextrose (Dextrose 50% 50 Ml Syringe) 25 - 50 ml IV UD PRN; Protocol PRN Reason: Hypoglycemia Protocol Stop: 07/08/20 22:06 Diltiazem HCl (Diltiazem Hcl 120 Mg Capcr) 120 mg PO DAILY@1200 CRISTAL Stop: 07/09/20 11:59 Last Admin: 06/09/20 13:03 Dose: 120 mg Documented by: Entacapone (Entacapone 200 Mg Tab) 200 mg PO TID CRISTAL Stop: 07/08/20 22:29 Last Admin: 06/09/20 20:19 Dose: 200 mg Documented by: Escitalopram Oxalate (Escitalopram Oxalate 10 Mg Tab) 10 mg PO QAM CRISTAL Stop: 07/09/20 08:59 Last Admin: 06/09/20 08:34 Dose: 10 mg Documented by: Glucagon (Glucagon For Inj 1 Mg Vial) 1 mg SQ UD PRN; Protocol PRN Reason: Hypoglycemia Protocol Stop: 07/08/20 22:06 Glucose (Glucose 40% Gel 15 Gm Tube) 15 - 30 gm PO UD PRN; Protocol PRN Reason: Hypoglycemia Protocol Stop: 07/08/20 22:06 Glucose (Glucose 10 Tabs/Tube) 4 - 8 tabs PO UD PRN; Protocol PRN Reason: Hypoglycemia Protocol Stop: 07/08/20 22:06 Hydromorphone HCl (Hydromorphone Inj 0.5 Mg/0.5 Ml Syr) 0.5 mg IV Q3H PRN PRN Reason: Pain Stop: 06/22/20 22:06 Last Admin: 06/10/20 06:17 Dose: 0.5 mg Documented by: Promethazine HCl 6.25 mg/ (Sodium Chloride) 50.25 mls @ 201 mls/hr IV Q6H PRN PRN Reason: Nausea And Vomiting Stop: 07/08/20 22:06 Insulin Aspart (Insulin Aspart 100 Units/Ml 3 Ml Pen) 0 units SC Q6 CRISTAL Stop: 07/10/20 05:59 Last Admin: 06/10/20 06:00 Dose: Not Given Documented by: Lidocaine (Lidocaine 5% 1 Patch) 1 patch TD DAILY@2100 CRISTAL Stop: 07/09/20 20:59 Last Admin: 06/09/20 21:04 Dose: Not Given Documented by: Lorazepam (Lorazepam 0.5 Mg Tab) 0.5 mg PO BID CRISTAL Stop: 07/08/20 22:06 Last Admin: 06/09/20 20:19 Dose: 0.5 mg Documented by: Miscellaneous (Remove Lidoderm Patch) 1 ea N/A DAILY@0900 CRISTAL Stop: 07/09/20 08:59 Last Admin: 06/09/20 08:35 Dose: 1 ea Documented by: Miscellaneous (Carbohydrates For Hypoglycemia ) 15 - 30 gm PO UD PRN PRN Reason: Hypoglycemia Protocol Stop: 07/08/20 22:06 Oxycodone HCl (Oxycodone Hcl Ir 5 Mg Tab (Immediate Release)) 5 - 10 mg PO QID PRN PRN Reason: Pain Stop: 06/22/20 22:06 Last Admin: 06/10/20 01:52 Dose: 5 mg Documented by: Raloxifene HCl (Raloxifene Hcl 60 Mg Tab) 60 mg PO DAILY@1200 CRISTAL Stop: 07/09/20 11:59 Last Admin: 06/09/20 13:04 Dose: 60 mg Documented by: Vitamin D (Cholecalciferol 1,000 Units 25 Mcg Tab) 1,000 units PO BID CRISTAL Stop: 07/09/20 08:59 Last Admin: 06/09/20 21:04 Dose: Not Given Documented by: (1) Closed sacral fracture Encounter type: initial encounter Zone of sacrum fracture: unspecified po rtion of sacrum Qualified Code(s): S32.10XA - Unspecified fracture of sacrum, initial encounter for closed fracture
[2020-06-10] MEDS: CHOLECALCIFEROL 1,000 UNITS 25 MCG TAB PO SCH ×2 (08:15→20:34)
[2020-06-10] MEDS: LORazepam 0.5 MG TAB PO SCH ×2 (08:35→20:13)
[2020-06-10] MEDS: ENTACAPONE 200 MG TAB PO SCH ×3 (08:35→20:32)
[2020-06-10] MEDS: CARBIDOPA/LEVODOPA 25-250 1 EA TAB PO SCH ×4 (08:36→20:33)
[2020-06-10] MEDS: ESCITALOPRAM OXALATE 10 MG TAB PO SCH (08:36)
[2020-06-10] MEDS ORDERED: MIDAZOLAM HCL 1 MG/ML 2ML VIAL ONE (08:51)
[2020-06-10] MEDS ORDERED: HYDROmorphone INJ 2 MG/ML SYR/VIAL ONE (08:51)
--- NOTE | 2020-06-10 09:04 | Anesthesiology Consultation ---
Date of Service June 10, 2020 Assessment & Plan (1) Encounter for pre-operative examination: Chart Review Chart Review: Acceptable Risk for Surgery and Patient NOT seen in Pre Admission Testing 06/08/2020. Covid negative. Consults Requested none Prior to last procedure in Apr 2020: (1) Encounter for pre-operative examination: - Per assessment on 04/07: Travel screen negative. No known COVID-19 positive contacts or current COVID-19 related symptoms. Surgeon arranging preop COVID testing. Awaiting results. - Cardiology office visit: 01/18/20: Patient seen by cardiology prior to lap jose (which was done 01/26/20 at [facility]). Per cardiology note: 01/21/20: "Stress test was negative for ischemia and did not suggest severe blockages. Overall heart function is normal. Findings do reflect longstanding atrial fibrillation and hypertension. No contraindications to proceeding with surgery as planned.. Lab work looks okay" - S/P lap cholecystectomy: 01/26/20: Grade 1 view, MAC#3, ETT 7 at [facility] - Check coags, BSG AM DOS - Comtan (entacapone) instructions: Hx Parkinson's on Comtan. Reviewed with Dr. Cunha- recommendation for patient to continue as directed perioperatively. Patient scheduled for left TKA (low likelihood of general anesthesia) but of note, studies have shown cases of post-op neuroleptic malignant syndrome with general anesthesia and recommendation for close monitoring post-op if general anesthesia used. History Surgery Operation Date: 06/10/20 09:35 Proposed Procedures p Extension of Fusion with Bilateral Iliac Bolts - Yehuda Marcelino DO Height/Weight Height: 5 ft 7 in Weight: 86 kg Allergies Allergy/AdvReac Type Severity Reaction Status Date / Time pramipexole AdvReac Unknown hallucinati Verified 06/08/20 21:04 ons Medications Home Medications Medication Instructions Recorded Confirmed Last Taken atorvastatin [Lipitor] 80 mg PO PM 01/21/20 06/08/20 05/17/20 21:00 calcitriol 0.5 mcg PO 1200 01/21/20 06/08/20 05/17/20 12:00 carbidopa-levodopa [Sinemet] 1 tab PO QID 01/21/20 06/08/20 05/18/20 06:00 cholecalciferol (vitamin D3) 25 mcg PO BID 01/21/20 06/08/20 05/18/20 06:00 [Vitamin D3] diltiazem HCl [Cardizem] 120 mg PO 1200 01/21/20 06/08/20 05/18/20 06:00 entacapone [Comtan] 200 mg PO TID 01/21/20 06/08/20 05/18/20 06:00 escitalopram oxalate [Lexapro] 10 mg PO QAM 01/21/20 06/08/20 05/18/20 06:00 lorazepam [Ativan] 0.5 mg PO BID 01/21/20 06/08/20 05/18/20 06:00 raloxifene 60 mg PO 1200 01/21/20 06/08/20 05/17/20 12:00 valsartan [Diovan] 80 mg PO 1200 01/21/20 06/08/20 05/17/20 09:00 warfarin 5 mg PO QPM 01/21/20 06/08/20 05/13/20 21:00 oxycodone 5 mg PO Q6H PRN #20 tab 05/18/20 06/08/20 Unknown tramadol 50 mg PO Q6H PRN #20 tab 05/18/20 06/08/20 Unknown Naloxone 4mg/0.1ml 4 mg INHALATION UD PRN 06/08/20 06/08/20 Unknown Active Medications Generic Name Dose Route Start Last Admin Trade Name Freq PRN Reason Stop Dose Admin Atorvastatin Calcium 80 mg 06/09/20 21:00 06/09/20 20:19 Atorvastatin 40 Mg Tab PO 07/09/20 20:59 80 mg PM [facility]STAL Administration Calcitriol 0.5 mcg 06/09/20 12:00 06/09/20 13:04 Calcitriol 0.25 Mcg Capsule PO 07/09/20 11:59 0.5 mcg DAILY@1200 C[facility]AL Administration Carbidopa/Levodopa 1 tab 06/08/20 22:18 06/10/20 08:36 Carbidopa/Levodopa 25-250 1 Ea Tab PO 07/08/20 22:17 1 tab 0900,1200,1600,2100 [facility] Administration Diltiazem HCl 120 mg 06/09/20 12:00 06/09/20 13:03 Diltiazem Hcl 120 Mg Capcr PO 07/09/20 11:59 120 mg DAILY@1200 [facility] Administration Entacapone 200 mg 06/08/20 22:30 06/10/20 08:35 Entacapone 200 Mg Tab PO 07/08/20 22:29 200 mg TID C[facility]STAL Administration Escitalopram Oxalate 10 mg 06/09/20 09:00 06/10/20 08:36 Escitalopram Oxalate 10 Mg Tab PO 07/09/20 08:59 10 mg QAM [facility] Administration Hydromorphone HCl 0.5 mg 06/08/20 22:07 06/10/20 06:17 Hydromorphone Inj 0.5 Mg/0.5 Ml Syr IV 06/22/20 22:06 0.5 mg Q3H PRN Administration Pain Insulin Aspart 0 units 06/10/20 06:00 06/10/20 06:00 Insulin Aspart 100 Units/Ml 3 Ml Pen SC 07/10/20 05:59 Not Given Q6 [facility]AL Lidocaine 1 patch 06/09/20 21:00 06/09/20 21:04 Lidocaine 5% 1 Patch TD 07/09/20 20:59 Not Given DAILY@2100 [facility] Lorazepam 0.5 mg 06/08/20 22:07 06/10/20 08:35 Lorazepam 0.5 Mg Tab PO 07/08/20 22:06 Not Given BID [facility] Miscellaneous 1 ea 06/09/20 09:00 06/10/20 08:15 Remove Lidoderm Patch N/A 07/09/20 08:59 1 ea DAILY@0900 [facility] Administration Oxycodone HCl 5 - 10 mg 06/08/20 22:07 06/10/20 01:52 Oxycodone Hcl Ir 5 Mg Tab (Immediate Release) PO 06/22/20 22:06 5 mg QID PRN Administration Pain Raloxifene HCl 60 mg 06/09/20 12:00 06/09/20 13:04 Raloxifene Hcl 60 Mg Tab PO 07/09/20 11:59 60 mg DAILY@1200 [facility] Administration Vitamin D 1,000 units 06/09/20 09:00 06/10/20 08:15 Cholecalciferol 1,000 Units 25 Mcg Tab PO 07/09/20 08:59 Not Given BID [facility] NPO Date Last Intake of Fluids: 06/09/20 Time Last Intake of Fluids: 23:00 Date Last Intake of Solids: 06/09/20 Time Last Intake of Solids: 23:00 Past Medical History Medical History Anxiety Atrial fibrillation paroxysmal on warfarin CKD (chronic kidney disease) Depression DM type 2 (diabetes mellitus, type 2) diet controlled Hyperlipidemia Hypertension Obesity Osteoarthritis Parkinsons disease Urinary incontinence Vertigo Past Family History Family History Mother Atrial fibrillation Father Myocardial infarction Past Surgical History Surgical History (Updated 06/10/20 @ 08:58 by Giovany Cunha MD) History of cholecystectomy lap cholecystectomy: 01/26/20: Grade 1 view, MAC#3, ETT 7 at [facility] History of incision and drainage shoulder> PT UNSURE OF DETAILS Hx of breast biopsy LEFT Hx of colonoscopy Social History Smoking Status: Never smoker Do You Dip or Chew Tobacco: No Hx Alcohol Use: No Hx Substance Use: No substance use type: does not use Physical Exam Vital Signs Last Vital Signs Temp 36.3 C L 06/10/20 08:00 Pulse 101 H 06/10/20 08:00 Resp 18 06/10/20 08:00 BP 144/76 H 06/10/20 08:00 Pulse Ox 95 06/10/20 08:00 Testing Laboratory Results 06/10/20 06:09 06/10/20 06:09 PT 12.3 Seconds (9.0-12.0) H 06/10/20 07:35 INR 1.2 (0.9-1.1) H 06/10/20 07:35 APTT 32.3 Seconds (21.0-31.0) H 06/08/20 19:32 Blood Type O Positive 06/09/20 06:22 Antibody Screen NEGATIVE 06/09/20 06:22 06/10/20 06/10/20 07:55 05:59 POC Glucose 114 H 121 H Electrocardiogram Date: 06/08/20 Test Reason : Blood Pressure : / mmHG Vent. Rate : 071 BPM Atrial Rate : 000 BPM P-R Int : 000 ms QRS Dur : 088 ms QT Int : 406 ms P-R-T Axes : 000 -09 021 degrees QTc Int : 441 ms Atrial fibrillation Anterolateral infarct , age undetermined Abnormal ECG No previous ECGs available Confirmed by Km Still ([id number]) on 06/09/2020 10:38:52 PM Referred By: REFERRED SELF Confirmed By:Km Still Other Testing Stress Test Date: 01/20/20 Type: DSE Stress echo negative for inducible ischemia. EF 55-60%. Mildly increased cLV wall thickness. Grade 3 DD with restrictive physiology. Mild MR/TR. Severe LAE. Moderate CHASITY. PASP borderline elevated (44mmhg). 127% MPHR.
[2020-06-10] MEDS ORDERED: ONDANSETRON INJ 2 MG/ML 2 ML VIAL IV PRN ×2 (09:08→14:03)
[2020-06-10] MEDS ORDERED: ATROPINE SULFATE 0.1 MG/ML 10ML SYR IV PRN (09:08)
[2020-06-10] MEDS ORDERED: ePHEDrine sulfate 50 MG/ML AMP IV PRN (09:08)
[2020-06-10] MEDS ORDERED: fentaNYL citrate 100 MCG/2 ML VIAL ONE ×2 (09:37→12:02)
--- NOTE | 2020-06-10 10:03 | History & Physical Bridge Note ---
Date of Service June 10, 2020 History & Physical Bridge Note I have examined the patient, reviewed the History & Physical and in the interval since the performance of the History & Physical I have noted the following changes of clinical significance: no changes noted Lumbar pelvic fusion with iliac bolts
[2020-06-10] MEDS ORDERED: ceFAZolin 2000MG 2,000 MG/15 ML SYR IV ONE (10:09)
[2020-06-10] MEDS ORDERED: ceFAZolin 2,000 MG/15 ML IV PUSH IV ONE (10:12)
[2020-06-10] MEDS ORDERED: BUPIVACAINE/EPINEPHRINE 0.5% MPF 1:200,000 30 ML VIAL ONE (10:25)
[2020-06-10] MEDS ORDERED: BACITRACIN INJ 50,000 UNIT VIAL ONE (10:25)
[2020-06-10] MEDS ORDERED: GENTAMICIN SULFATE 40 MG/ML 2 ML VIAL ONE (10:30)
[2020-06-10] MEDS ORDERED: VANCOMYCIN HCL 1000MG/20ML VIAL ONE (10:30)
[2020-06-10] MEDS ORDERED: NEOSTIGMINE METHYLSULFATE 1 MG/ML 10ML VIAL ONE (11:02)
[2020-06-10] MEDS ORDERED: DEXAMETHASONE SOD INJ 4 MG/ML VIAL ONE (11:02)
[2020-06-10] MEDS ORDERED: PROPOFOL IV EMULSION 10 MG/ML 20 ML VIAL IV ONE (11:02)
[2020-06-10] MEDS ORDERED: ONDANSETRON INJ 2 MG/ML 2 ML VIAL ONE (11:02)
[2020-06-10] MEDS ORDERED: LIDOCAINE HCL 2% 2 ML VIAL/AMP(20MG/ML) INFIL ONE (11:02)
[2020-06-10] MEDS ORDERED: GLYCOPYRROLATE 0.2 MG/ML VIAL ONE (11:02)
[2020-06-10] MEDS ORDERED: ROCURONIUM BROMIDE 10 MG/ML 5 ML VIAL IV ONE (11:02)
[2020-06-10] MEDS ORDERED: PHENYLEPHRINE 100MCG/ML 5ML SYR ONE (11:26)
[2020-06-10] MEDS ORDERED: FLOSEAL HEMOSTATIC MATRIX 10ML TOP ONE (12:08)
--- NOTE | 2020-06-10 12:13 | Operative Report ---
Post Operative Report Pre & Post Diagnosis Operation Date: 06/10/20 09:35 Pre-Op Diagnosis: Closed sacral fracture Post-Op Diagnosis: Closed sacral fracture I identified the patient and participated in the time-out.: Yes Procedure Operation Date: 06/10/20 09:35 Actual Procedures #1 lumbar pelvic fusion. #2 bilateral open SI joint fusions. #3 placement of posterior instrumentation with bilateral iliac bolts. #4 placement infuse collagen sponge, master graft in bilateral SI joints. Surgeon Yehuda Marcelino DO Acid Etch Operator Jaime Clements Estimated Blood Loss 50 Findings Consistent with Post-Op Diagnosis Specimens None Indications This is a 74-year-old female presents with above-mentioned diagnosis. We subsequently elected to undergo stabilization of the sacral fracture with a lumbar pelvic fusion to begin mobilization. Description of Procedure Patient was met with identified informed consent obtained. Patient was then taken to the operative suite underwent an patient placed in a prone position the Tarik table on top Sumanth frame. All bony prominences well-padded eyes inspected to ensure no external pressure placed upon up at this point lumbar spine was prepped and draped in a sterile fashion. Sharp dissection with assistance pericardial performed down to and exposing the instrumentation at L4- L5 and S1 levels including the bilateral SI joints and iliac crest. I then proceeded to remove the rods bilaterally including the S1 pedicle screws which were grossly loose. I then placed bilateral iliac bolts with the assistance of fluoroscopy. I then exposed and burred out to the bilateral sacral iliac joints to expose subcortical bleeding bone. I then placed larger S1 screws bilaterally augmenting their fixation with bone cement. The proper size rods were then contoured and locked in position bilaterally to fuse the lumbar to the pelvis. Then placed infuse collagen sponge and master graft in bilateral SI joints. 15 round KAVEH drain inserted. Proximally 5 cc of stimulant beads impregnated with gentamicin vancomycin placed throughout the incision. Incision 15 round KAVEH drain inserted. The incision was then closed with 1 Vicryl in the fascia 2-0 Vicryl subcutaneously and 4 Monocryl for final skin closure. Steri-Strip sterile dressings placed. Patient waken taken PACU stable condition. Please note Jaime record was present at the entire procedure involved the patient positioning complex portions of the surgery and final skin closure. I attest to the content of the Intraoperative Record and any orders documented therein. Any exceptions are noted below.
--- NOTE | 2020-06-10 12:24 | Fluoroscopy Report ---
FL pelvis 1-2V CLINICAL HISTORY: BILATERAL ILIAC BOLTS COMPARISON STUDY: Lumbar spine CT June 08, 2020. FLUOROSCOPY TIME: 12 seconds. FLUOROSCOPIC IMAGES: 2 FINDINGS: Fluoroscopy was provided during placement of bilateral iliac bolts. L5-S1 discectomy is not ed. Lumbosacral fusion hardware is partially imaged. Visualized portions of the hardware are intact. IMPRESSION: Fluoroscopy provided during placement of bilateral iliac bolts. ACT 112: Negative or not required by law. Electronically signed by: Jamil Barbour M.D. 06/10/2020 12:22 PM
[2020-06-10] MEDS: fentaNYL citrate 100 MCG/2 ML VIAL IV PRN ×4 (12:48→13:03)
[2020-06-10] MEDS: HYDROmorphone INJ 1 MG/ML SYRINGE IV PRN ×3 (13:08→13:26)
[2020-06-10] MEDS ORDERED: LORazepam 0.5 MG TAB PO PRN (14:03)
[2020-06-10] MEDS ORDERED: ACETAMINOPHEN 500 MG TAB PO PRN (14:03)
[2020-06-10] MEDS ORDERED: NALOXONE INH PRN (14:03)
[2020-06-10] MEDS ORDERED: FAMOTIDINE 20 MG TAB PO PRN (14:03)
[2020-06-10] MEDS ORDERED: ONDANSETRON 4 MG OD TAB PO PRN (14:03)
[2020-06-10] MEDS ORDERED: SOD PHOSPHATE/SOD BIPHOSPHATE ENEMA 132 ML BTL PR PRN (14:03)
[2020-06-10] MEDS ORDERED: LORazepam 0.5 MG/1 ML VIAL IV PRN (14:03)
[2020-06-10] MEDS ORDERED: DO NOT ADMINISTER FLU VACCINE PRN (14:03)
[2020-06-10] MEDS ORDERED: hydrOXYzine HCl 25 MG TAB PO PRN (14:03)
[2020-06-10] MEDS ORDERED: DO NOT ADMINISTER PNEUMOCOCCAL VACCINE PRN (14:03)
[2020-06-10] MEDS ORDERED: diphenhydrAMINE Capsule 25 MG CAP PO PRN (14:03)
[2020-06-10] MEDS ORDERED: MAGNESIUM HYDROXIDE SUSP 30 ML UDC PO PRN (14:03)
[2020-06-10] MEDS ORDERED: METOCLOPRAMIDE HCL INJ 5 MG/ML 2 ML VIAL IV PRN (14:03)
[2020-06-10] MEDS ORDERED: bisacodyL 10 MG SUPP PR PRN (14:03)
[2020-06-10] MEDS ORDERED: ALUMINUM/MAGNESIUM SUSP 30 ML UDC PO PRN (14:03)
[2020-06-10] MEDS ORDERED: ACETAMINOPHEN 1,000 MG/100 ML VIAL IV PRN (14:03)
[2020-06-10] MEDS ORDERED: NALOXONE HCL 0.4 MG/1 ML VIAL/CARP IV PRN (14:03)
[2020-06-10] MEDS ORDERED: PROMETHAZINE HCL 12.5 MG in SODIUM CHLORIDE 0.9% 50 ML IV PRN (14:03)
[2020-06-10] MEDS ORDERED: oxyCODONE HCL IR 5 MG TAB (IMMEDIATE RELEASE) PO PRN (14:15)
[2020-06-10] MEDS: CALCITRIOL 0.25 MCG CAPSULE PO SCH (14:33)
[2020-06-10] MEDS: SODIUM CHLORIDE 0.9% 1000ML 1,000 ML IV SCH (14:37)
--- NOTE | 2020-06-10 15:35 | Anesthesiology Progress Note ---
Date of Service June 10, 2020 Anesthesia Post Procedure Vital Signs Vital Signs: Temp Pulse Pulse Pulse Resp BP Pulse Ox 06/10/20 15:29 95 H 06/10/20 14:33 36.5 C 79 20 169/79 H 94 06/10/20 14:03 37.0 C 99 H 20 147/70 H 97 06/10/20 13:35 36.5 C 95 H 17 158/89 H 98 06/10/20 13:25 97 H 20 116/86 100 06/10/20 13:15 107 H 17 120/93 100 06/10/20 13:05 112 H 19 120/93 100 06/10/20 12:55 104 H 25 H 120/93 06/10/20 12:45 94 H 20 137/93 06/10/20 12:39 36.3 C L 81 23 209/149 H 100 06/10/20 08:50 36.8 C 80 20 142/85 H 97 06/10/20 08:00 36.3 C L 101 H 18 144/76 H 95 06/10/20 04:00 36.5 C 96 H 22 169/90 H 95 06/09/20 23:21 95 H 06/09/20 22:00 37.0 C 91 H 22 129/77 94 06/09/20 19:00 37.4 C 92 H 18 122/74 96 Pain Intensity Back: Pain Intensity: 9 Transfer of Care Handoff Completed per policy Notes Mental Status: alert / awake / arousable and participated in evaluation Patient Amnestic to Procedure: Yes Nausea / Vomiting: adequately controlled Pain: adequately controlled Airway Patency, RR, SpO2: stable & adequate BP & HR: stable & adequate Hydration State: stable & adequate Anesthetic Complications: no major complications apparent and Pt Satisfied with anesthetic care
[2020-06-10] MEDS: WARFARIN SOD 5 MG TAB PO SCH (15:57)
[2020-06-10] MEDS: RALOXIFENE HCL 60 MG TAB PO SCH (15:57)
[2020-06-10] MEDS: dilTIAZem HCL 120 MG CAPCR PO SCH (15:57)
[2020-06-10] MEDS ORDERED: Nursing to Pharmacy Communication SCH (16:00)
[2020-06-10] MEDS: ceFAZolin 2000MG 2,000 MG/15 ML SYR IV SCH (17:50)
[2020-06-10] MEDS: LIDOCAINE 5% 1 PATCH TD SCH (20:32)
[2020-06-10] MEDS: DOCUSATE SODIUM/SENNA 50/8.6MG TAB PO SCH (20:33)
[2020-06-10] MEDS: ATORVASTATIN 40 MG TAB PO SCH (20:33)
[2020-06-11] MEDS: SODIUM CHLORIDE 0.9% 1000ML 1,000 ML IV SCH (00:51)
[2020-06-11] MEDS: ceFAZolin 2000MG 2,000 MG/15 ML SYR IV SCH (02:20)
[2020-06-11] MEDS: traMADol HCL 50 MG TABLET PO PRN ×2 (06:24→12:54)
[2020-06-11] MEDS: POLYETHYLENE (MIRALAX) 17 GM PACK PO SCH ×3 (06:25→17:02)
[2020-06-11 07:02] LABS: Hematocrit (blood only) 34.9 % (37-47); Hemoglobin 11.1 g/dL (12.0-16.0); Immature Granulocytes # (auto) 0.04 K/uL (0.00-0.02); Immature Granulocytes % (auto) 0.3 %; Lymphocytes # (auto) 0.69 K/uL (1.2-3.4); Mean Corpuscular Hemoglobin 29.1 pg (25-34); Mean Corpuscular Hgb Conc 31.8 g/dL (32-36); Mean Corpuscular Volume 91.6 fL (80-100); Mean Platelet Volume 10.9 fL (7.4-10.4); Monocytes # (auto) 1.04 K/uL (0.11-0.59); Monocytes % (auto) 7.6 %; Neutrophils # (auto) 11.91 K/uL (1.4-6.5); Neutrophils % (auto) 87.1 %; Platelet Count 234 K/uL (130-400); RDW Standard Deviation 50.4 fL (36.4-46.3); Red Blood Count 3.81 M/uL (4.2-5.4); White Blood Count 13.68 K/uL (4.8-10.8)
[2020-06-11 07:08] LABS: BUN Creatinine Ratio 23.2 (10-20); Creatinine Clr Calc Pharmacy 49.7 ml/min; Est GFR (African American) 53.4; Potassium 4.4 mmol/L (3.5-5.1)
--- NOTE | 2020-06-11 07:54 | Hospitalist Progress Note ---
Date of Service June 11, 2020 Assessment & Plan (1) Closed sacral fracture: Recent back surgery, status post lumbar decompression fusion w/ Dr. 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 Closed sacral fracture Orthopedic spine consult RE sacral fracture Now pt is s/p surgical stabilization, which required extending the lumbar fusion to the pelvis by way of iliac bolts 06/10/20 (earlier today) Pt tolerated procedure well Transfers bed to chair today with ambulation as tolerated with a walker. Analgesia Incentive spirometer q1 hr Post op recommendations by surgery Monitor H&H Acute blood loss anemia/ post-op expected and mild, no need for blood transfusion at this time Hgb 11.1, cont. to monitor HTN, at goal, well controlled Facilitate home BP meds Held losartan on admission given borderline hyperkalemia, gentle IVF Medical telemetry given blood pressure elevation AF on Coumadin, rate controlled, INR supratherapeutic on admission, now 1.2 Vitamin K 1 dose given on admission to reverse Coumadin coagulopathy in preparation for surgery warfarin restarted monitor INR Hyperlipidemia on statin Rx Parkinson's disease, stable on regimen, Facilitate Parkinson's disease medication regimen DM 2 diet-controlled, well-controlled as of recent outpatient hemoglobin A1c of 6.3% April 2020, ISS BG goal [id number] Borderline hyperkalemia, current K4.1 DVT prophylaxis. SCDs while Coumadin on hold if INR less than 2 Full code Patient's brother, Mr. Torrey GrimmJr amy. to be contacted at #[phone]. Admission and Anticipated Discharge Date Admission Date: June 08, 2020 Subjective Pt is laying in bed in NAD. Currently only complains of some low back pain, but overall pt appears in NAD. Denies fever, chills, chest pain, shortness of breath, abd. pain, nausea or vomi ting. Continues to have poor appetite. Review of Systems Review of Systems: All systems reviewed & are unremarkable except as noted in HPI & below Constitutional: + fatigue and + anorexia; no fever and no chills Respiratory: no cough and no dyspnea Cardiovascular: no chest pain and no palpitations Gastrointestinal: no abdominal pain, no nausea and no vomiting Physical Exam Physical Exam: GENERAL: elderly female laying in bed, in NAD HEENT: NC/AT, [place] palpebral conjunctivae, no ptosis, dry buccal mucosa NECK : Supple, no tenderness CHEST : CTA, no tenderness HEART : Irregular, no obvious murmurs ABDOMEN: Some distention, nontender, + bowel sounds, obese BACK : Low back tenderness EXTREMITIES : No LE swelling/tenderness, moves extremities SKIN: Normal color, warm NEUROLOGIC : alert and oriented x3, no facial asymmetry, speech fluent, moves extremities Results & Data Results & Data ([facility]) Vital Signs (Past 12 Hours) Vital Signs Temp Pulse Pulse Resp BP Pulse Ox 06/11/20 02:44 36.6 C 85 16 152/59 H 93 06/10/20 23:00 36.8 C 86 20 126/79 94 06/10/20 22:20 87 Laboratory Results 06/11/20 06/11/20 06/11/20 Range/Units 11:31 07:46 06:19 WBC (4.8-10.8) K/uL RBC (4.2-5.4) M/uL Hgb (12.0-16.0) g/dL Hct (37-47) % MCV (80-100) fL MCH (25-34) pg MCHC (32-36) g/dL RDW Std Deviation (36.4-46.3) fL RDW Coeff of Ratna (11.5-14.5) % Plt Count (130-400) K/uL MPV (7.4-10.4) fL Immature Gran % (Auto) % Neut % (Auto) % Lymph % (Auto) % Jerome % (Auto) % Eos % (Auto) % Baso % (Auto) % Neut # (Auto) (1.4-6.5) K/uL Lymph # (Auto) (1.2-3.4) K/uL Jerome # (Auto) (0.11-0.59) K/uL Eos # (Auto) (0-0.5) K/uL Baso # (Auto) (0-0.2) K/uL Immature Gran # (Auto) (0.00-0.02) K/uL Sodium 143 (136-145) mmol/L Potassium 4.4 (3.5-5.1) mmol/L Chloride 113 H (98-107) mmol/L Carbon Dioxide 27 (21-32) mmol/L Anion Gap 3.0 (3-11) BUN 27 H (7-18) mg/dl Creatinine 1.18 (0.6-1.2) mg/dl Est Cr Clr Drug Dosing 49.7 ml/min Est GFR ( Amer) 53.4 Est GFR (Non-Af Amer) 46.0 BUN/Creatinine Ratio 23.2 H (10-20) Glucose 120 H (70-99) mg/dl POC Glucose 103 H 121 H (70-99) mg/dl Calcium 8.0 L (8.5-10.1) mg/dl 06/11/20 06/10/20 Range/Units 06:19 20:43 WBC 13.68 H (4.8-10.8) K/uL RBC 3.81 L (4.2-5.4) M/uL Hgb 11.1 L (12.0-16.0) g/dL Hct 34.9 L (37-47) % MCV 91.6 (80-100) fL MCH 29.1 (25-34) pg MCHC 31.8 L (32-36) g/dL RDW Std Deviation 50.4 H (36.4-46.3) fL RDW Coeff of Ratna 15.0 H (11.5-14.5) % Plt Count 234 (130-400) K/uL MPV 10.9 H (7.4-10.4) fL Immature Gran % (Auto) 0.3 % Neut % (Auto) 87.1 % Lymph % (Auto) 5.0 % Jerome % (Auto) 7.6 % Eos % (Auto) 0.0 % Baso % (Auto) 0.0 % Neut # (Auto) 11.91 H (1.4-6.5) K/uL Lymph # (Auto) 0.69 L (1.2-3.4) K/uL Jerome # (Auto) 1.04 H (0.11-0.59) K/uL Eos # (Auto) 0.00 (0-0.5) K/uL Baso # (Auto) 0.00 (0-0.2) K/uL Immature Gran # (Auto) 0.04 H (0.00-0.02) K/uL Sodium (136-145) mmol/L Potassium (3.5-5.1) mmol/L Chloride (98-107) mmol/L Carbon Dioxide (21-32) mmol/L Anion Gap (3-11) BUN (7-18) mg/dl Creatinine (0.6-1.2) mg/dl Est Cr Clr Drug Dosing ml/min Est GFR ( Amer) Est GFR (Non-Af Amer) BUN/Creatinine Ratio (10-20) Glucose (70-99) mg/dl POC Glucose 151 H (70-99) mg/dl Calcium (8.5-10.1) mg/dl Medications Administered Current Inpatient Medications Acetaminophen (Acetaminophen 325 Mg Tab) 650 mg PO Q4H PRN PRN Reason: Pain or Fever Stop: 07/08/20 22:06 Acetaminophen (Acetaminophen 500 Mg Tab) 1,000 mg PO Q8H PRN PRN Reason: MILD Pain Scale 1,2,3 & Pre PT Stop: 07/10/20 14:02 Al Hydrox/Mg Hydrox/Simethicone (Aluminum/Magnesium Susp 30 Ml Udc) 30 ml PO Q6H PRN PRN Reason: Dyspepsia Stop: 07/10/20 14:02 Atorvastatin Calcium (Atorvastatin 40 Mg Tab) 80 mg PO PM [facility] Stop: 07/09/20 20:59 Last Admin: 06/10/20 20:33 Dose: 80 mg Documented by: Bisacodyl (Bisacodyl 10 Mg Supp) 10 mg NC DAILY PRN PRN Reason: Constipation Stop: 07/10/20 14:02 Calcitriol (Calcitriol 0.25 Mcg Capsule) 0.5 mcg PO DAILY@1200 [facility] Stop: 07/09/20 11:59 Last Admin: 06/11/20 11:37 Dose: 0.5 mcg Documented by: Carbidopa/Levodopa (Carbidopa/Levodopa 25-250 1 Ea Tab) 1 tab PO 0900,1200,1600,2100 [facility] Stop: 07/08/20 22:17 Last Admin: 06/11/20 11:37 Dose: 1 tab Documented by: Dextrose (Dextrose 50% 50 Ml Syringe) 25 - 50 ml IV UD PRN; Protocol PRN Reason: Hypoglycemia Protocol Stop: 07/08/20 22:06 Diltiazem HCl (Diltiazem Hcl 120 Mg Capcr) 120 mg PO DAILY@1200 [facility] Stop: 07/09/20 11:59 Last Admin: 06/11/20 13:22 Dose: 120 mg Documented by: Diphenhydramine HCl (Diphenhydramine Capsule 25 Mg Cap) 25 mg PO Q6H PRN PRN Reason: Allergic Rhinitis/Insomnia Stop: 07/10/20 14:02 Entacapone (Entacapone 200 Mg Tab) 200 mg PO TID [facility] Stop: 07/08/20 22:29 Last Admin: 06/11/20 11:37 Dose: 200 mg Documented by: Escitalopram Oxalate (Escitalopram Oxalate 10 Mg Tab) 10 mg PO QAM [facility] Stop: 07/09/20 08:59 Last Admin: 06/11/20 11:36 Dose: 10 mg Documented by: Famotidine (Famotidine 20 Mg Tab) 20 mg PO Q12H PRN PRN Reason: Dyspepsia Stop: 07/10/20 14:02 Glucagon (Glucagon For Inj 1 Mg Vial) 1 mg SQ UD PRN; Protocol PRN Reason: Hypoglycemia Protocol Stop: 07/08/20 22:06 Glucose (Glucose 40% Gel 15 Gm Tube) 15 - 30 gm PO UD PRN; Protocol PRN Reason: Hypoglycemia Protocol Stop: 07/08/20 22:06 Glucose (Glucose 10 Tabs/Tube) 4 - 8 tabs PO UD PRN; Protocol PRN Reason: Hypoglycemia Protocol Stop: 07/08/20 22:06 Hydromorphone HCl (Hydromorphone Inj 0.5 Mg/0.5 Ml Syr) 0.5 mg IV Q3H PRN PRN Reason: Pain Stop: 06/22/20 22:06 Last Admin: 06/10/20 06:17 Dose: 0.5 mg Documented by: Hydroxyzine HCl (Hydroxyzine Hcl 25 Mg Tab) 25 mg PO Q8H PRN PRN Reason: Anxiety Stop: 07/10/20 14:02 Promethazine HCl 6.25 mg/ (Sodium Chloride) 50.25 mls @ 201 mls/hr IV Q6H PRN PRN Reason: Nausea And Vomiting Stop: 07/08/20 22:06 Lorazepam (Ativan) 0.5 mg in 1 mls @ 0.5 mls/min IV Q8H PRN PRN Reason: Sedation/Anxiety Stop: 07/10/20 14:02 Promethazine HCl 12.5 mg/ (Sodium Chloride) 50.5 mls @ 204 mls/hr IV Q6H PRN PRN Reason: Nausea &/or Vomiting Stop: 07/10/20 14:02 Sodium Chloride (Nss 1000ml) 1,000 mls @ 100 mls/hr IV .Q10H [facility] Stop: 07/10/20 14:02 Last Infusion: 06/11/20 15:23 Dose: Infused Documented by: Influenza Virus Vaccine Quadrival (Do Not Administer Flu Vaccine) 1 ea N/A PRN PRN PRN Reason: Notification Stop: 07/10/20 14:02 Insulin Aspart (Insulin Aspart 100 Units/Ml 3 Ml Pen) 0 units SC ACHS [facility] Stop: 07/10/20 05:59 Last Admin: 06/11/20 12:07 Dose: Not Given Documented by: Lidocaine (Lidocaine 5% 1 Patch) 1 patch TD DAILY@2100 [facility] Stop: 07/09/20 20:59 Last Admin: 06/10/20 20:32 Dose: 1 patch Documented by: Lorazepam (Lorazepam 0.5 Mg Tab) 0.5 mg PO BID [facility] Stop: 07/08/20 22:06 Last Admin: 06/11/20 07:55 Dose: Not Given Documented by: Lorazepam (Lorazepam 0.5 Mg Tab) 0.5 mg PO Q8H PRN PRN Reason: Sedation/Anxiety Stop: 07/10/20 14:02 Magnesium Hydroxide (Magnesium Hydroxide Susp 30 Ml Udc) 30 ml PO DAILY PRN PRN Reason: Constipation Stop: 07/10/20 14:02 Metoclopramide HCl (Metoclopramide Hcl Inj 5 Mg/Ml 2 Ml Vial) 10 mg IV Q6H PRN PRN Reason: Nausea &/or Vomiting Stop: 07/10/20 14:02 Miscellaneous (Remove Lidoderm Patch) 1 ea N/A DAILY@0900 [facility] Stop: 07/09/20 08:59 Last Admin: 06/11/20 09:00 Dose: 1 ea Documented by: Miscellaneous (Carbohydrates For Hypoglycemia ) 15 - 30 gm PO UD PRN PRN Reason: Hypoglycemia Protocol Stop: 07/08/20 22:06 Naloxone HCl (Naloxone Hcl 0.4 Mg/1 Ml Vial/Carp) 0.1 mg IV Q5M PRN; Protocol PRN Reason: Oversedation/Resp Depression Stop: 07/10/20 14:02 Ondansetron HCl (Ondansetron Inj 2 Mg/Ml 2 Ml Vial) 4 mg IV Q6H PRN PRN Reason: Nausea &/or Vomiting Stop: 07/10/20 14:02 Ondansetron HCl (Ondansetron 4 Mg Od Tab) 4 mg PO Q6H PRN PRN Reason: Nausea Stop: 07/10/20 14:02 Oxycodone HCl (Oxycodone Hcl Ir 5 Mg Tab (Immediate Release)) 5 - 10 mg PO QID PRN PRN Reason: Pain Stop: 06/22/20 22:06 Last Admin: 06/10/20 01:52 Dose: 5 mg Documented by: Oxycodone HCl (Oxycodone Hcl Ir 5 Mg Tab (Immediate Release)) 5 mg PO Q6H PRN PRN Reason: Pain Stop: 06/24/20 14:14 Pneumococcal Polyvalent Vaccine (Do Not Administer Pneumococcal Vaccine) 1 ea N/A PRN PRN PRN Reason: Notification Stop: 07/10/20 14:02 Polyethylene Glycol (Polyethylene (Miralax) 17 Gm Pack) 17 gm PO Q6 [facility] Stop: 07/11/20 05:59 Last Admin: 06/11/20 11:44 Dose: 17 gm Documented by: Raloxifene HCl (Raloxifene Hcl 60 Mg Tab) 60 mg PO DAILY@1200 [facility] Stop: 07/09/20 11:59 Last Admin: 06/11/20 13:22 Dose: 60 mg Documented by: Senna/Docusate Sodium (Docusate Sodium/Senna 50/8.6mg Tab) 2 tab PO HS [facility] Stop: 07/10/20 20:59 Last Admin: 06/10/20 20:33 Dose: 2 tab Documented by: Sodium Biphosphate/Sodium Phosphate (Sod Phosphate/Sod Biphosphate Enema 132 Ml Btl) 132 ml NC ONE PRN PRN Reason: Constipation Stop: 07/10/20 14:02 Tramadol HCl (Tramadol Hcl 50 Mg Tablet) 50 mg PO Q6H PRN PRN Reason: pain, moderate Stop: 07/10/20 14:02 Tramadol HCl (Tramadol Hcl 50 Mg Tablet) 50 - 100 mg PO Q4H PRN PRN Reason: Moderate-Severe Pain & Pre PT Stop: 07/10/20 14:02 Last Admin: 11/21/20 12:54 Dose: 100 mg Documented by: Valsartan (Valsartan 80 Mg Tab) 80 mg PO 1200 [facility] Stop: 07/11/20 11:59 Last Admin: 06/11/20 11:36 Dose: 80 mg Documented by: Vitamin D (Cholecalciferol 1,000 Units 25 Mcg Tab) 1,000 units PO BID [facility] Stop: 07/09/20 08:59 Last Admin: 06/11/20 11:36 Dose: 1,000 units Documented by: Warfarin Sodium (Warfarin Sod 5 Mg Tab) 5 mg PO DAILY@1600 [facility] Stop: 07/10/20 15:59 Last Admin: 06/10/20 15:57 Dose: 5 mg Documented by: (1) Closed sacral fracture Encounter type: initial encounter Zone of sacrum fracture: unspecified portion of sacrum Qualified Code(s): S32.10XA - Unspecified fracture of sacrum, initial encounter for closed fracture
[2020-06-11] MEDS: LORazepam 0.5 MG TAB PO SCH ×2 (07:55→20:58)
[2020-06-11] MEDS: INSULIN ASPART 100 UNITS/ML 3 ML PEN SC SCH ×4 (07:57→21:37)
[2020-06-11] MEDS: CARBIDOPA/LEVODOPA 25-250 1 EA TAB PO SCH ×4 (09:00→20:58)
[2020-06-11] MEDS: ENTACAPONE 200 MG TAB PO SCH ×3 (09:00→20:59)
--- NOTE | 2020-06-11 09:24 | Orthopedic Progress Note ---
Date of Service June 11, 2020 Assessment & Plan (1) Closed sacral fracture: Admission and Anticipated Discharge Date Admission Date: June 08, 2020 Patient status post lumbar pelvic fusion. It was initiated transfers bed to chair today with ambulation as tolerated with a walker. Subjective Patient is comfortable no complaints or leg pain this morning Physical Exam Physical Exam: Patient is neurologically intact. Results & Data ([facility]) Vital Signs (Past 12 Hours) Vital Signs Temp Pulse Pulse Resp BP Pulse Ox 06/11/20 07:00 36.9 C 87 18 160/80 H 95 06/11/20 02:44 36.6 C 85 16 152/59 H 93 06/10/20 23:00 36.8 C 86 20 126/79 94 06/10/20 22:20 87 (1) Closed sacral fracture Encounter type: initial encounter Zone of sacrum fracture: unspecified portion of sacrum Qualified Code(s): S32.10XA - Unspecified fracture of sacrum, initial encounter for closed fracture
[2020-06-11] MEDS: VALSARTAN 80 MG TAB PO SCH (11:36)
[2020-06-11] MEDS: CHOLECALCIFEROL 1,000 UNITS 25 MCG TAB PO SCH ×2 (11:36→21:03)
[2020-06-11] MEDS: ESCITALOPRAM OXALATE 10 MG TAB PO SCH (11:36)
[2020-06-11] MEDS: CALCITRIOL 0.25 MCG CAPSULE PO SCH (11:37)
[2020-06-11] MEDS: dilTIAZem HCL 120 MG CAPCR PO SCH (13:22)
[2020-06-11] MEDS: RALOXIFENE HCL 60 MG TAB PO SCH (13:22)
[2020-06-11] MEDS: WARFARIN SOD 5 MG TAB PO SCH (16:57)
[2020-06-11] MEDS: DOCUSATE SODIUM/SENNA 50/8.6MG TAB PO SCH (20:59)
[2020-06-11] MEDS: ATORVASTATIN 40 MG TAB PO SCH (20:59)
[2020-06-11] MEDS: LIDOCAINE 5% 1 PATCH TD SCH (21:04)
[2020-06-12] MEDS: POLYETHYLENE (MIRALAX) 17 GM PACK PO SCH ×4 (00:18→17:09)
[2020-06-12 03:43] LABS: Basophils # (auto) 0.01 K/uL (0-0.2); Basophils % (auto) 0.1 %; Eosinophils # (auto) 0.08 K/uL (0-0.5); Eosinophils % (auto) 0.8 %; Hematocrit (blood only) 33.4 % (37-47); Hemoglobin 10.6 g/dL (12.0-16.0); Immature Granulocytes # (auto) 0.02 K/uL (0.00-0.02); Immature Granulocytes % (auto) 0.2 %; Lymphocytes # (auto) 1.05 K/uL (1.2-3.4); Lymphocytes % (auto) 10.2 %; Mean Corpuscular Hemoglobin 29.3 pg (25-34); Mean Corpuscular Hgb Conc 31.7 g/dL (32-36); Mean Corpuscular Volume 92.3 fL (80-100); Mean Platelet Volume 10.5 fL (7.4-10.4); Monocytes # (auto) 0.98 K/uL (0.11-0.59); Monocytes % (auto) 9.5 %; Neutrophils # (auto) 8.13 K/uL (1.4-6.5); Neutrophils % (auto) 79.2 %; Platelet Count 187 K/uL (130-400); RDW Coefficient of Variation 15.4 % (11.5-14.5); Red Blood Count 3.62 M/uL (4.2-5.4); White Blood Count 10.27 K/uL (4.8-10.8)
[2020-06-12 04:03] LABS: BUN Creatinine Ratio 24.5 (10-20); Calcium 8.1 mg/dl (8.5-10.1); Creatinine Clr Calc Pharmacy 55.4 ml/min; Est GFR (African American) 60.8; Est GFR (Non-African American) 52.4; Magnesium 2.1 mg/dl (1.8-2.4)
[2020-06-12 04:12] LABS: Thyroid Stimulating Hormone 0.712 uIu/ml (0.300-4.500)
[2020-06-12] MEDS: ACETAMINOPHEN 325 MG TAB PO PRN (06:24)
[2020-06-12] MEDS: INSULIN ASPART 100 UNITS/ML 3 ML PEN SC SCH ×4 (08:20→22:07)
[2020-06-12] MEDS: ENTACAPONE 200 MG TAB PO SCH ×3 (08:21→20:48)
[2020-06-12] MEDS: ESCITALOPRAM OXALATE 10 MG TAB PO SCH (08:21)
[2020-06-12] MEDS: CARBIDOPA/LEVODOPA 25-250 1 EA TAB PO SCH ×4 (08:21→20:48)
[2020-06-12] MEDS: CHOLECALCIFEROL 1,000 UNITS 25 MCG TAB PO SCH ×2 (08:22→20:48)
[2020-06-12] MEDS: LORazepam 0.5 MG TAB PO SCH ×2 (08:24→20:47)
--- NOTE | 2020-06-12 09:36 | Orthopedic Progress Note ---
Date of Service June 12, 2020 Assessment & Plan (1) Closed sacral fracture: Pain seems to be controlled. Continue with PT, DVT prophylaxis is TEDS/SCDs. I anticipate the need to return back to [facility] upon discharge. Admission and Anticipated Discharge Date Admission Date: June 08, 2020 Supervising Physician Co-Signing Physician Notes Dr. Yehuda Marcelino Subjective Pt is POD#2 revision lumbar fusion due to pelvic fracture. Her pain seems to be controlled. KAVEH 50cc last shift. h/h 10.6/33.4 respectively. No new complaints. Review of Systems Review of Systems: All systems reviewed & are unremarkable except as noted in HPI & below Physical Exam Physical Exam: She's sitting up in bed. Lumbar dressing C/D/I calves soft and nontender b/l strength intact b/l lower extremities Results & Data ([facility]) Vital Signs (Past 12 Hours) Vital Signs Temp Pulse Pulse Pulse Resp BP Pulse Ox 06/12/20 08:00 69 06/12/20 07:00 36.4 C L 73 18 127/72 97 06/12/20 05:01 36.8 C 59 L 18 117/75 97 06/12/20 02:55 50 L 06/11/20 23:47 36.4 C L 64 18 101/62 97 06/11/20 22:20 60 (1) Closed sacral fracture Encounter type: initial encounter Zone of sacrum fracture: unspecified portion of sacrum Qualified Code(s): S32.10XA - Unspecified fracture of sacrum, initial encounter for closed fracture
--- NOTE | 2020-06-12 11:06 | Hospitalist Progress Note ---
Date of Service June 12, 2020 Assessment & Plan (1) Closed sacral fracture: Recent back surgery, status post lumbar decompression fusion w/ Dr. 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 Closed sacral fracture Orthopedic spine consult RE sacral fracture Now pt is s/p surgical stabilization, which required extending the lumbar fusion to the pelvis by way of iliac bolts 06/10/20 (earlier today) Pt tolerated procedure well Transfers bed to chair with ambulation as tolerated with a walker. Analgesia Incentive spirometer q1 hr Post op recommendations by surgery Monitor H&H DC likely to rehab (back to [facility]) or SNF Acute blood loss anemia/ post-op expected and mild, no need for blood transfusion at this time Hgb 11, cont. to monitor HTN, at goal, well controlled Facilitate home BP meds Held valsartan on admission given borderline hyperkalemia, gentle IVF Medical telemetry given blood pressure elevation Now valsartan restarted, K 4.0 AF on Coumadin, rate controlled, INR supratherapeutic on admission, then reversed to 1.2 Vitamin K 1 dose given on admission to reverse Coumadin coagulopathy in preparation for surgery warfarin restarted monitor INR Hyperlipidemia on statin Rx Parkinson's disease, stable on regimen, Facilitate Parkinson's disease medication regimen DM 2 diet-controlled, well-controlled as of recent outpatient hemoglobin A1c of 6.3% April 2020, ISS BG goal [id number] Borderline hyperkalemia, current K 4.1 DVT prophylaxis. SCDs while INR less than 2 Full code Patient's brother, Mr. Hirsch Jr Emilie. to be contacted at #[phone]. Admission and Anticipated Discharge Date Admission Date: June 08, 2020 Subjective Pt is laying in bed in NAD. Currently only complains of some low back pain and chronic R knee pain, but overall pt appears in NAD. States she is in more pain with any movement. Denies fever, chills, chest pain, shortness of breath, abd. pain, nausea or vomiting. Review of Systems Review of Systems: All systems reviewed & are unremarkable except as noted in HPI & below Constitutional: + fatigue; no fever and no chills Respiratory: no cough and no dyspnea Cardiovascular: no chest pain and no palpitations Gastrointestinal: no abdominal pain, no nausea and no vomiting Physical Exam Physical Exam: GENERAL: elderly female laying in bed, in NAD HEENT: NC/AT, [place] palpebral conjunctivae, no ptosis, dry buccal mucosa NECK : Supple, no tenderness CHEST : CTA, no tenderness HEART : Irregular, no obvious murmurs ABDOMEN: Some distention, nontender, + bowel sounds, obese BACK : Low back tenderness, R medial knee tenderness no edema or erythema EXTREMITIES : No LE swelling/tenderness, moves extremities SKIN: Normal color, warm NEUROLOGIC : alert and oriented x3, no facial asymmetry, speech fluent, moves extremities Results & Data Results & Data ([facility]) Vital Signs (Past 12 Hours) Vital Signs Temp Pulse Pulse Pulse Resp BP Pulse Ox 06/12/20 08:00 69 06/12/20 07:00 36.4 C L 73 18 127/72 97 06/12/20 05:01 36.8 C 59 L 18 117/75 97 06/12/20 02:55 50 L 06/11/20 23:47 36.4 C L 64 18 101/62 97 Laboratory Results 06/12/20 06/12/20 06/12/20 Range/Units 07:45 03:21 03:21 WBC 10.27 (4.8-10.8) K/uL RBC 3.62 L (4.2-5.4) M/uL Hgb 10.6 L (12.0-16.0) g/dL Hct 33.4 L (37-47) % MCV 92.3 (80-100) fL MCH 29.3 (25-34) pg MCHC 31.7 L (32-36) g/dL RDW Std Deviation 52.0 H (36.4-46.3) fL RDW Coeff of Ratna 15.4 H (11.5-14.5) % Plt Count 187 (130-400) K/uL MPV 10.5 H (7.4-10.4) fL Immature Gran % (Auto) 0.2 % Neut % (Auto) 79.2 % Lymph % (Auto) 10.2 % [place] % (Auto) 9.5 % Eos % (Auto) 0.8 % Baso % (Auto) 0.1 % Neut # (Auto) 8.13 H (1.4-6.5) K/uL Lymph # (Auto) 1.05 L (1.2-3.4) K/uL [place] # (Auto) 0.98 H (0.11-0.59) K/uL Eos # (Auto) 0.08 (0-0.5) K/uL Baso # (Auto) 0.01 (0-0.2) K/uL Immature Gran # (Auto) 0.02 (0.00-0.02) K/uL Sodium 139 (136-145) mmol/L Potassium 4.0 (3.5-5.1) mmol/L Chloride 110 H (98-107) mmol/L Carbon Dioxide 28 (21-32) mmol/L Anion Gap 1.0 L (3-11) BUN 26 H (7-18) mg/dl Creatinine 1.06 (0.6-1.2) mg/dl Est Cr Clr Drug Dosing 55.4 ml/min Est GFR ( Amer) 60.8 Est GFR (Non-Af Amer) 52.4 BUN/Creatinine Ratio 24.5 H (10-20) Glucose 121 H (70-99) mg/dl POC Glucose 107 H (70-99) mg/dl Calcium 8.1 L (8.5-10.1) mg/dl Magnesium 2.1 (1.8-2.4) mg/dl TSH 0.712 (0.300-4.500) uIu/ml 06/11/20 06/11/20 06/11/20 Range/Units 20:19 16:37 11:31 WBC (4.8-10.8) K/uL RBC (4.2-5.4) M/uL Hgb (12.0-16.0) g/dL Hct (37-47) % MCV (80-100) fL MCH (25-34) pg MCHC (32-36) g/dL RDW Std Deviation (36.4-46.3) fL RDW Coeff of Ratna (11.5-14.5) % Plt Count (130-400) K/uL MPV (7.4-10.4) fL Immature Gran % (Auto) % Neut % (Auto) % Lymph % (Auto) % [place] % (Auto) % Eos % (Auto) % Baso % (Auto) % Neut # (Auto) (1.4-6.5) K/uL Lymph # (Auto) (1.2-3.4) K/uL [place] # (Auto) (0.11-0.59) K/uL Eos # (Auto) (0-0.5) K/uL Baso # (Auto) (0-0.2) K/uL Immature Gran # (Auto) (0.00-0.02) K/uL Sodium (136-145) mmol/L Potassium (3.5-5.1) mmol/L Chloride (98-107) mmol/L Carbon Dioxide (21-32) mmol/L Anion Gap (3-11) BUN (7-18) mg/dl Creatinine (0.6-1.2) mg/dl Est Cr Clr Drug Dosing ml/min Est GFR ( Amer) Est GFR (Non-Af Amer) BUN/Creatinine Ratio (10-20) Glucose (70-99) mg/dl POC Glucose 166 H 142 H 103 H (70-99) mg/dl Calcium (8.5-10.1) mg/dl Magnesium (1.8-2.4) mg/dl TSH (0.300-4.500) uIu/ml Medications Administered Current Inpatient Medications Acetaminophen (Acetaminophen 325 Mg Tab) 650 mg PO Q4H PRN PRN Reason: Pain or Fever Stop: 07/08/20 22:06 Last Admin: 06/12/20 06:24 Dose: 650 mg Documented by: Acetaminophen (Acetaminophen 500 Mg Tab) 1,000 mg PO Q8H PRN PRN Reason: MILD Pain Scale 1,2,3 & Pre PT Stop: 07/10/20 14:02 Last Admin: 06/11/20 20:58 Dose: 1,000 mg Documented by: Al Hydrox/Mg Hydrox/Simethicone (Aluminum/Magnesium Susp 30 Ml Udc) 30 ml PO Q6H PRN PRN Reason: Dyspepsia Stop: 07/10/20 14:02 Atorvastatin Calcium (Atorvastatin 40 Mg Tab) 80 mg PO PM [facility] Stop: 07/09/20 20:59 Last Admin: 06/11/20 20:59 Dose: 80 mg Documented by: Bisacodyl (Bisacodyl 10 Mg Supp) 10 mg [place] DAILY PRN PRN Reason: Constipation Stop: 07/10/20 14:02 Calcitriol (Calcitriol 0.25 Mcg Capsule) 0.5 mcg PO DAILY@1200 [facility] Stop: 07/09/20 11:59 Last Admin: 06/11/20 11:37 Dose: 0.5 mcg Documented by: Carbidopa/Levodopa (Carbidopa/Levodopa 25-250 1 Ea Tab) 1 tab PO 0900,1200,1600,2100 [facility] Stop: 07/08/20 22:17 Last Admin: 06/12/20 08:21 Dose: 1 tab Documented by: Dextrose (Dextrose 50% 50 Ml Syringe) 25 - 50 ml IV UD PRN; Protocol PRN Reason: Hypoglycemia Protocol Stop: 07/08/20 22:06 Diltiazem HCl (Diltiazem Hcl 120 Mg Capcr) 120 mg PO DAILY@1200 [facility] Stop: 07/09/20 11:59 Last Admin: 06/11/20 13:22 Dose: 120 mg Documented by: Diphenhydramine HCl (Diphenhydramine Capsule 25 Mg Cap) 25 mg PO Q6H PRN PRN Reason: Allergic Rhinitis/Insomnia Stop: 07/10/20 14:02 Entacapone (Entacapone 200 Mg Tab) 200 mg PO TID [facility] Stop: 07/08/20 22:29 Last Admin: 06/12/20 08:21 Dose: 200 mg Documented by: Escitalopram Oxalate (Escitalopram Oxalate 10 Mg Tab) 10 mg PO QAM [facility] Stop: 07/09/20 08:59 Last Admin: 06/12/20 08:21 Dose: 10 mg Documented by: Famotidine (Famotidine 20 Mg Tab) 20 mg PO Q12H PRN PRN Reason: Dyspepsia Stop: 07/10/20 14:02 Glucagon (Glucagon For Inj 1 Mg Vial) 1 mg SQ UD PRN; Protocol PRN Reason: Hypoglycemia Protocol Stop: 07/08/20 22:06 Glucose (Glucose 40% Gel 15 Gm Tube) 15 - 30 gm PO UD PRN; Protocol PRN Reason: Hypoglycemia Protocol Stop: 07/08/20 22:06 Glucose (Glucose 10 Tabs/Tube) 4 - 8 tabs PO UD PRN; Protocol PRN Reason: Hypoglycemia Protocol Stop: 07/08/20 22:06 Hydromorphone HCl (Hydromorphone Inj 0.5 Mg/0.5 Ml Syr) 0.5 mg IV Q3H PRN PRN Reason: Pain Stop: 06/22/20 22:06 Last Admin: 06/10/20 06:17 Dose: 0.5 mg Documented by: Hydroxyzine HCl (Hydroxyzine Hcl 25 Mg Tab) 25 mg PO Q8H PRN PRN Reason: Anxiety Stop: 07/10/20 14:02 Promethazine HCl 6.25 mg/ (Sodium Chloride) 50.25 mls @ 201 mls/hr IV Q6H PRN PRN Reason: Nausea And Vomiting Stop: 07/08/20 22:06 Lorazepam (Ativan) 0.5 mg in 1 mls @ 0.5 mls/min IV Q8H PRN PRN Reason: Sedation/Anxiety Stop: 07/10/20 14:02 Promethazine HCl 12.5 mg/ (Sodium Chloride) 50.5 mls @ 204 mls/hr IV Q6H PRN PRN Reason: Nausea &/or Vomiting Stop: 07/10/20 14:02 Sodium Chloride (Nss 1000ml) 1,000 mls @ 100 mls/hr IV .Q10H [facility] Stop: 07/10/20 14:02 Last Infusion: 06/11/20 15:23 Dose: Infused Documented by: Influenza Virus Vaccine Quadrival (Do Not Administer Flu Vaccine) 1 ea N/A PRN PRN PRN Reason: Notification Stop: 07/10/20 14:02 Insulin Aspart (Insulin Aspart 100 Units/Ml 3 Ml Pen) 0 units SC ACHS [facility] Stop: 07/10/20 05:59 Last Admin: 06/12/20 08:20 Dose: 1 units Documented by: Lidocaine (Lidocaine 5% 1 Patch) 1 patch TD DAILY@2100 [facility] Stop: 07/09/20 20:59 Last Admin: 06/11/20 21:04 Dose: 1 patch Documented by: Lorazepam (Lorazepam 0.5 Mg Tab) 0.5 mg PO BID [facility] Stop: 07/08/20 22:06 Last Admin: 06/12/20 08:24 Dose: 0.5 mg Documented by: Lorazepam (Lorazepam 0.5 Mg Tab) 0.5 mg PO Q8H PRN PRN Reason: Sedation/Anxiety Stop: 07/10/20 14:02 Magnesium Hydroxide (Magnesium Hydroxide Susp 30 Ml Udc) 30 ml PO DAILY PRN PRN Reason: Constipation Stop: 07/10/20 14:02 Metoclopramide HCl (Metoclopramide Hcl Inj 5 Mg/Ml 2 Ml Vial) 10 mg IV Q6H PRN PRN Reason: Nausea &/or Vomiting Stop: 07/10/20 14:02 Miscellaneous (Remove Lidoderm Patch) 1 ea N/A DAILY@0900 [facility] Stop: 07/09/20 08:59 Last Admin: 06/12/20 08:21 Dose: 1 ea Documented by: Miscellaneous (Carbohydrates For Hypoglycemia ) 15 - 30 gm PO UD PRN PRN Reason: Hypoglycemia Protocol Stop: 07/08/20 22:06 Naloxone HCl (Naloxone Hcl 0.4 Mg/1 Ml Vial/Carp) 0.1 mg IV Q5M PRN; Protocol PRN Reason: Oversedation/Resp Depression Stop: 07/10/20 14:02 Ondansetron HCl (Ondansetron Inj 2 Mg/Ml 2 Ml Vial) 4 mg IV Q6H PRN PRN Reason: Nausea &/or Vomiting Stop: 07/10/20 14:02 Ondansetron HCl (Ondansetron 4 Mg Od Tab) 4 mg PO Q6H PRN PRN Reason: Nausea Stop: 07/10/20 14:02 Oxycodone HCl (Oxycodone Hcl Ir 5 Mg Tab (Immediate Release)) 5 - 10 mg PO QID PRN PRN Reason: Pain Stop: 06/22/20 22:06 Last Admin: 06/10/20 01:52 Dose: 5 mg Documented by: Oxycodone HCl (Oxycodone Hcl Ir 5 Mg Tab (Immediate Release)) 5 mg PO Q6H PRN PRN Reason: Pain Stop: 06/24/20 14:14 Pneumococcal Polyvalent Vaccine (Do Not Administer Pneumococcal Vaccine) 1 ea N/A PRN PRN PRN Reason: Notification Stop: 07/10/20 14:02 Polyethylene Glycol (Polyethylene (Miralax) 17 Gm Pack) 17 gm PO Q6 [facility] Stop: 07/11/20 05:59 Last Admin: 06/12/20 06:24 Dose: 17 gm Documented by: Raloxifene HCl (Raloxifene Hcl 60 Mg Tab) 60 mg PO DAILY@1200 [facility] Stop: 07/09/20 11:59 Last Admin: 06/11/20 13:22 Dose: 60 mg Documented by: Senna/Docusate Sodium (Docusate Sodium/Senna 50/8.6mg Tab) 2 tab PO HS [facility] Stop: 07/10/20 20:59 Last Admin: 06/11/20 20:59 Dose: 2 tab Documented by: Sodium Biphosphate/Sodium Phosphate (Sod Phosphate/Sod Biphosphate Enema 132 Ml Btl) 132 ml [place] ONE PRN PRN Reason: Constipation Stop: 07/10/20 14:02 Tramadol HCl (Tramadol Hcl 50 Mg Tablet) 50 mg PO Q6H PRN PRN Reason: pain, moderate Stop: 07/10/20 14:02 Tramadol HCl (Tramadol Hcl 50 Mg Tablet) 50 - 100 mg PO Q4H PRN PRN Reason: Moderate-Severe Pain & Pre PT Stop: 07/10/20 14:02 Last Admin: 06/11/20 12:54 Dose: 100 mg Documented by: Valsartan (Valsartan 80 Mg Tab) 80 mg PO 1200 [facility] Stop: 07/11/20 11:59 Last Admin: 06/11/20 11:36 Dose: 80 mg Documented by: Vitamin D (Cholecalciferol 1,000 Units 25 Mcg Tab) 1,000 units PO BID [facility] Stop: 07/09/20 08:59 Last Admin: 06/12/20 08:22 Dose: 1,000 units Documented by: Warfarin Sodium (Warfarin Sod 5 Mg Tab) 5 mg PO DAILY@1600 [facility] Stop: 07/10/20 15:59 Last Admin: 06/11/20 16:57 Dose: 5 mg Documented by: (1) Closed sacral fracture Encounter type: initial encounter Zone of sacrum fracture: unspecified port ion of sacrum Qualified Code(s): S32.10XA - Unspecified fracture of sacrum, initial encounter for closed fracture
[2020-06-12] MEDS: VALSARTAN 80 MG TAB PO SCH (11:21)
[2020-06-12] MEDS: dilTIAZem HCL 120 MG CAPCR PO SCH (11:21)
[2020-06-12] MEDS: RALOXIFENE HCL 60 MG TAB PO SCH (11:22)
[2020-06-12] MEDS: CALCITRIOL 0.25 MCG CAPSULE PO SCH (11:22)
[2020-06-12] MEDS: oxyCODONE HCL IR 5 MG TAB (IMMEDIATE RELEASE) PO PRN (15:03)
[2020-06-12] MEDS: WARFARIN SOD 5 MG TAB PO SCH (15:03)
[2020-06-12] MEDS: LIDOCAINE 5% 1 PATCH TD SCH ×2 (17:07→21:47)
[2020-06-12] MEDS: DOCUSATE SODIUM/SENNA 50/8.6MG TAB PO SCH (20:48)
[2020-06-12] MEDS: ATORVASTATIN 40 MG TAB PO SCH (20:48)
[2020-06-12] MEDS: traMADol HCL 50 MG TABLET PO PRN (21:47)
[2020-06-13] MEDS: HYDROmorphone INJ 0.5 MG/0.5 ML SYR IV PRN (00:34)
[2020-06-13] MEDS: POLYETHYLENE (MIRALAX) 17 GM PACK PO SCH ×5 (01:05→23:49)
[2020-06-13] MEDS: ACETAMINOPHEN 325 MG TAB PO PRN (01:06)
[2020-06-13 07:25] LABS: Hematocrit (blood only) 34.3 % (37-47); Mean Corpuscular Hemoglobin 28.8 pg (25-34); Mean Corpuscular Hgb Conc 32.1 g/dL (32-36); Mean Corpuscular Volume 89.8 fL (80-100); Mean Platelet Volume 10.5 fL (7.4-10.4); Platelet Count 182 K/uL (130-400); RDW Coefficient of Variation 15.3 % (11.5-14.5); RDW Standard Deviation 50.1 fL (36.4-46.3); Red Blood Count 3.82 M/uL (4.2-5.4); White Blood Count 10.24 K/uL (4.8-10.8)
[2020-06-13 07:34] LABS: INR 2.6 (0.9-1.1); Prothrombin Time 25.6 Seconds (9.0-12.0)
[2020-06-13] MEDS: traMADol HCL 50 MG TABLET PO PRN ×2 (07:52→23:54)
[2020-06-13 07:57] LABS: BUN Creatinine Ratio 20.9 (10-20); Calcium 8.2 mg/dl (8.5-10.1); Creatinine Clr Calc Pharmacy 63.7 ml/min; Est GFR (African American) 72.1; Est GFR (Non-African American) 62.2; Magnesium 1.8 mg/dl (1.8-2.4); Phosphorus 2.6 mg/dl (2.5-4.9); Potassium 3.7 mmol/L (3.5-5.1)
--- NOTE | 2020-06-13 07:57 | Hospitalist Progress Note ---
Date of Service June 13, 2020 Assessment & Plan (1) Closed sacral fracture: Recent back surgery, status post lumbar decompression fusion w/ Dr. 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 Closed sacral fracture Orthopedic spine consult RE sacral fracture Now pt is s/p surgical stabilization, which required extending the lumbar fusion to the pelvis by way of iliac bolts 06/10/20 (earlier today) Pt tolerated procedure well Transfers bed to chair with ambulation as tolerated with a walker. Analgesia Incentive spirometer q1 hr Post op recommendations by surgery Monitor H&H DC likely to rehab (back to [facility]) or SNF Acute blood loss anemia/ post-op expected and mild, no need for blood transfusion at this time Hgb 11, cont. to monitor HTN, at goal, well controlled Facilitate home BP meds Held valsartan on admission given borderline hyperkalemia, gentle IVF Medical telemetry given blood pressure elevation Now valsartan restarted, K 3.7 AF on Coumadin, rate controlled, INR supratherapeutic on admission, then reversed to 1.2 Vitamin K 1 dose given on admission to reverse Coumadin coagulopathy in preparation for surgery warfarin restarted, INR now therapeutic at 2.6 monitor INR Hyperlipidemia on statin Rx Parkinson's disease, stable on regimen, Facilitate Parkinson's disease medication regimen DM 2 diet-controlled, well-controlled as of recent outpatient hemoglobin A1c of 6.3% April 2020, ISS BG goal [id number] Borderline hyperkalemia, current K 3.7 DVT prophylaxis. SCDs while INR less than 2, coumadin, INR therapeutic at 2.6 Full code Disposition: plan to dc [facility] Admission and Anticipated Discharge Date Admission Date: June 08, 2020 Subjective Patient seen in follow-up for back pain and other med. conditions, after orthopedic surgery. Patient lying in bed in no acute distress. Denies any fevers, chills, chest pain, shortness of breath. Patient reports that her appetite is better, and she is also moving better now. Plan to [facility]. Plan to remove KAVEH drain today. Review of Systems Review of Systems: All systems reviewed & are unremarkable except as noted in HPI & below Constitutional: no fever and no chills Respiratory: no cough and no dyspnea Cardiovascular: no chest pain and no palpitations Gastrointestinal: no abdominal pain, no nausea and no vomiting Physical Exam Physical Exam: GENERAL: elderly female laying in bed, in NAD HEENT: NC/AT, Ivan palpebral conjunctivae, no ptosis NECK : Supple, no tenderness CHEST : CTA, no tenderness HEART : Irregular, no obvious murmurs ABDOMEN: Some distention, nontender, + bowel sounds, obese BACK : Low back tenderness, R medial knee tenderness no edema or erythema EXTREMITIES : No LE swelling/tenderness, moves extremities SKIN: Normal color, warm NEUROLOGIC : alert and oriented x3, no facial asymmetry, speech fluent, moves extremities Results & Data Results & Data ([facility]) Vital Signs (Past 12 Hours) Vital Signs Temp Pulse Pulse Resp BP BP Pulse Ox 06/13/20 06:55 37.0 C 91 H 20 132/75 92 06/13/20 04:00 36.8 C 93 H 20 138/81 96 06/13/20 00:00 88 06/12/20 23:45 37.7 C H 90 20 127/65 94 06/12/20 20:02 36.7 C 90 20 113/66 96 Laboratory Results 06/13/20 06/13/20 06/13/20 Range/Units 07:41 06:48 06:48 WBC (4.8-10.8) K/uL RBC (4.2-5.4) M/uL Hgb (12.0-16.0) g/dL Hct (37-47) % MCV (80-100) fL MCH (25-34) pg MCHC (32-36) g/dL RDW Std Deviation (36.4-46.3) fL RDW Coeff of Ratna (11.5-14.5) % Plt Count (130-400) K/uL MPV (7.4-10.4) fL PT 25.6 H (9.0-12.0) Seconds INR 2.6 H (0.9-1.1) Sodium 141 (136-145) mmol/L Potassium 3.7 (3.5-5.1) mmol/L Chloride 109 H (98-107) mmol/L Carbon Dioxide 28 (21-32) mmol/L Anion Gap 4.0 (3-11) BUN 19 H (7-18) mg/dl Creatinine 0.92 (0.6-1.2) mg/dl Est Cr Clr Drug Dosing 63.7 ml/min Est GFR ( Amer) 72.1 Est GFR (Non-Af Amer) 62.2 BUN/Creatinine Ratio 20.9 H (10-20) Glucose 108 H (70-99) mg/dl POC Glucose 133 H (70-99) mg/dl Calcium 8.2 L (8.5-10.1) mg/dl Phosphorus 2.6 (2.5-4.9) mg/dl Magnesium 1.8 (1.8-2.4) mg/dl 06/13/20 06/12/20 06/12/20 Range/Units 06:48 20:46 16:56 WBC 10.24 (4.8-10.8) K/uL RBC 3.82 L (4.2-5.4) M/uL Hgb 11.0 L (12.0-16.0) g/dL Hct 34.3 L (37-47) % MCV 89.8 (80-100) fL MCH 28.8 (25-34) pg MCHC 32.1 (32-36) g/dL RDW Std Deviation 50.1 H (36.4-46.3) fL RDW Coeff of Ratna 15.3 H (11.5-14.5) % Plt Count 182 (130-400) K/uL MPV 10.5 H (7.4-10.4) fL PT (9.0-12.0) Seconds INR (0.9-1.1) Sodium (136-145) mmol/L Potassium (3.5-5.1) mmol/L Chloride (98-107) mmol/L Carbon Dioxide (21-32) mmol/L Anion Gap (3-11) BUN (7-18) mg/dl Creatinine (0.6-1.2) mg/dl Est Cr Clr Drug Dosing ml/min Est GFR ( Amer) Est GFR (Non-Af Amer) BUN/Creatinine Ratio (10-20) Glucose (70-99) mg/dl POC Glucose 159 H 100 H (70-99) mg/dl Calcium (8.5-10.1) mg/dl Phosphorus (2.5-4.9) mg/dl Magnesium (1.8-2.4) mg/dl 06/12/20 Range/Units 11:30 WBC (4.8-10.8) K/uL RBC (4.2-5.4) M/uL Hgb (12.0-16.0) g/dL Hct (37-47) % MCV (80-100) fL MCH (25-34) pg MCHC (32-36) g/dL RDW Std Deviation (36.4-46.3) fL RDW Coeff of Ratna (11.5-14.5) % Plt Count (130-400) K/uL MPV (7.4-10.4) fL PT (9.0-12.0) Seconds INR (0.9-1.1) Sodium (136-145) mmol/L Potassium (3.5-5.1) mmol/L Chloride (98-107) mmol/L Carbon Dioxide (21-32) mmol/L Anion Gap (3-11) BUN (7-18) mg/dl Creatinine (0.6-1.2) mg/dl Est Cr Clr Drug Dosing ml/min Est GFR ( Amer) Est GFR (Non-Af Amer) BUN/Creatinine Ratio (10-20) Glucose (70-99) mg/dl POC Glucose 146 H (70-99) mg/dl Calcium (8.5-10.1) mg/dl Phosphorus (2.5-4.9) mg/dl Magnesium (1.8-2.4) mg/dl Medications Administered Current Inpatient Medications Acetaminophen (Acetaminophen 325 Mg Tab) 650 mg PO Q4H PRN PRN Reason: Pain or Fever Stop: 07/08/20 22:06 Last Admin: 06/13/20 01:06 Dose: 650 mg Documented by: Acetaminophen (Acetaminophen 500 Mg Tab) 1,000 mg PO Q8H PRN PRN Reason: MILD Pain Scale 1,2,3 & Pre PT Stop: 07/10/20 14:02 Last Admin: 06/11/20 20:58 Dose: 1,000 mg Documented by: Al Hydrox/Mg Hydrox/Simethicone (Aluminum/Magnesium Susp 30 Ml Udc) 30 ml PO Q6H PRN PRN Reason: Dyspepsia Stop: 07/10/20 14:02 Atorvastatin Calcium (Atorvastatin 40 Mg Tab) 80 mg PO PM CRISTAL Stop: 07/09/20 20:59 Last Admin: 06/12/20 20:48 Dose: 80 mg Documented by: Bisacodyl (Bisacodyl 10 Mg Supp) 10 mg [place] DAILY PRN PRN Reason: Constipation Stop: 07/10/20 14:02 Calcitriol (Calcitriol 0.25 Mcg Capsule) 0.5 mcg PO DAILY@1200 [facility], [facility]1983 Stop: 07/09/20 11:59 Last Admin: 06/12/20 11:22 Dose: 0.5 mcg Documented by: Carbidopa/Levodopa (Carbidopa/Levodopa 25-250 1 Ea Tab) 1 tab PO 0900,1200,1600,2100 [facility], [facility] Stop: 07/08/20 22:17 Last Admin: 06/12/20 20:48 Dose: 1 tab Documented by: Dextrose (Dextrose 50% 50 Ml Syringe) 25 - 50 ml IV UD PRN; Protocol PRN Reason: Hypoglycemia Protocol Stop: 07/08/20 22:06 Diltiazem HCl (Diltiazem Hcl 120 Mg Capcr) 120 mg PO DAILY@1200 [facility], [facility]1983 Stop: 07/09/20 11:59 Last Admin: 06/12/20 11:21 Dose: 120 mg Documented by: Diphenhydramine HCl (Diphenhydramine Capsule 25 Mg Cap) 25 mg PO Q6H PRN PRN Reason: Allergic Rhinitis/Insomnia Stop: 07/10/20 14:02 Entacapone (Entacapone 200 Mg Tab) 200 mg PO TID [facility], [facility]1983 Stop: 07/08/20 22:29 Last Admin: 06/12/20 20:48 Dose: 200 mg Documented by: Escitalopram Oxalate (Escitalopram Oxalate 10 Mg Tab) 10 mg PO QAM [facility], [facility]1983 Stop: 07/09/20 08:59 Last Admin: 06/12/20 08:21 Dose: 10 mg Documented by: Famotidine (Famotidine 20 Mg Tab) 20 mg PO Q12H PRN PRN Reason: Dyspepsia Stop: 07/10/20 14:02 Glucagon (Glucagon For Inj 1 Mg Vial) 1 mg SQ UD PRN; Protocol PRN Reason: Hypoglycemia Protocol Stop: 07/08/20 22:06 Glucose (Glucose 40% Gel 15 Gm Tube) 15 - 30 gm PO UD PRN; Protocol PRN Reason: Hypoglycemia Protocol Stop: 07/08/20 22:06 Glucose (Glucose 10 Tabs/Tube) 4 - 8 tabs PO UD PRN; Protocol PRN Reason: Hypoglycemia Protocol Stop: 07/08/20 22:06 Hydromorphone HCl (Hydromorphone Inj 0.5 Mg/0.5 Ml Syr) 0.5 mg IV Q3H PRN PRN Reason: Pain Stop: 06/22/20 22:06 Last Admin: 06/13/20 00:34 Dose: 0.5 mg Documented by: Hydroxyzine HCl (Hydroxyzine Hcl 25 Mg Tab) 25 mg PO Q8H PRN PRN Reason: Anxiety Stop: 07/10/20 14:02 Promethazine HCl 6.25 mg/ (Sodium Chloride) 50.25 mls @ 201 mls/hr IV Q6H PRN PRN Reason: Nausea And Vomiting Stop: 07/08/20 22:06 Lorazepam (Ativan) 0.5 mg in 1 mls @ 0.5 mls/min IV Q8H PRN PRN Reason: Sedation/Anxiety Stop: 07/10/20 14:02 Promethazine HCl 12.5 mg/ (Sodium Chloride) 50.5 mls @ 204 mls/hr IV Q6H PRN PRN Reason: Nausea &/or Vomiting Stop: 07/10/20 14:02 Sodium Chloride (Nss 1000ml) 1,000 mls @ 100 mls/hr IV .Q10H CRISTAL Stop: 07/10/20 14:02 Last Infusion: 06/11/20 15:23 Dose: Infused Documented by: Influenza Virus Vaccine Quadrival (Do Not Administer Flu Vaccine) 1 ea N/A PRN PRN PRN Reason: Notification Stop: 07/10/20 14:02 Insulin Aspart (Insulin Aspart 100 Units/Ml 3 Ml Pen) 0 units SC ACHS CRISTAL Stop: 07/10/20 05:59 Last Admin: 06/12/20 22:07 Dose: Not Given Documented by: Lidocaine (Lidocaine 5% 1 Patch) 1 patch TD DAILY@2100 CRISTAL Stop: 07/09/20 20:59 Last Admin: 06/12/20 21:47 Dose: 1 patch Documented by: Lidocaine (Lidocaine 5% 1 Patch) 1 patch TD QAM CRISTAL Stop: 07/12/20 15:59 Last Admin: 06/12/20 17:07 Dose: 1 patch Documented by: Lorazepam (Lorazepam 0.5 Mg Tab) 0.5 mg PO BID CRISTAL Stop: 07/08/20 22:06 Last Admin: 06/12/20 20:47 Dose: 0.5 mg Documented by: Lorazepam (Lorazepam 0.5 Mg Tab) 0.5 mg PO Q8H PRN PRN Reason: Sedation/Anxiety Stop: 07/10/20 14:02 Magnesium Hydroxide (Magnesium Hydroxide Susp 30 Ml Udc) 30 ml PO DAILY PRN PRN Reason: Constipation Stop: 07/10/20 14:02 Metoclopramide HCl (Metoclopramide Hcl Inj 5 Mg/Ml 2 Ml Vial) 10 mg IV Q6H PRN PRN Reason: Nausea &/or Vomiting Stop: 07/10/20 14:02 Miscellaneous (Remove Lidoderm Patch) 1 ea N/A DAILY@0900 [facility], [facility] Stop: 07/09/20 08:59 Last Admin: 06/12/20 08:21 Dose: 1 ea Documented by: Miscellaneous (Carbohydrates For Hypoglycemia ) 15 - 30 gm PO UD PRN PRN Reason: Hypoglycemia Protocol Stop: 07/08/20 22:06 Miscellaneous (Remove Lidoderm Patch) 1 ea N/A DAILY@2100 [facility], [facility] Stop: 07/12/20 22:59 Last Admin: 06/12/20 22:53 Dose: 1 ea Documented by: Naloxone HCl (Naloxone Hcl 0.4 Mg/1 Ml Vial/Carp) 0.1 mg IV Q5M PRN; Protocol PRN Reason: Oversedation/Resp Depression Stop: 07/10/20 14:02 Ondansetron HCl (Ondansetron Inj 2 Mg/Ml 2 Ml Vial) 4 mg IV Q6H PRN PRN Reason: Nausea &/or Vomiting Stop: 07/10/20 14:02 Ondansetron HCl (Ondansetron 4 Mg Od Tab) 4 mg PO Q6H PRN PRN Reason: Nausea Stop: 07/10/20 14:02 Oxycodone HCl (Oxycodone Hcl Ir 5 Mg Tab (Immediate Release)) 5 - 10 mg PO QID PRN PRN Reason: Pain Stop: 06/22/20 22:06 Last Admin: 06/12/20 15:03 Dose: 5 mg Documented by: Oxycodone HCl (Oxycodone Hcl Ir 5 Mg Tab (Immediate Release)) 5 mg PO Q6H PRN PRN Reason: Pain Stop: 06/24/20 14:14 Last Admin: 06/12/20 20:47 Dose: 5 mg Documented by: Pneumococcal Polyvalent Vaccine (Do Not Administer Pneumococcal Vaccine) 1 ea N/A PRN PRN PRN Reason: Notification Stop: 07/10/20 14:02 Polyethylene Glycol (Polyethylene (Miralax) 17 Gm Pack) 17 gm PO Q6 CRISTAL Stop: 07/11/20 05:59 Last Admin: 06/13/20 05:26 Dose: Not Given Documented by: Raloxifene HCl (Raloxifene Hcl 60 Mg Tab) 60 mg PO DAILY@1200 [facility], [facility] Stop: 07/09/20 11:59 Last Admin: 06/12/20 11:22 Dose: 60 mg Documented by: Senna/Docusate Sodium (Docusate Sodium/Senna 50/8.6mg Tab) 2 tab PO HS CRISTAL Stop: 07/10/20 20:59 Last Admin: 06/12/20 20:48 Dose: 2 tab Documented by: Sodium Biphosphate/Sodium Phosphate (Sod Phosphate/Sod Biphosphate Enema 132 Ml Btl) 132 ml [place] ONE PRN PRN Reason: Constipation Stop: 07/10/20 14:02 Tramadol HCl (Tramadol Hcl 50 Mg Tablet) 50 mg PO Q6H PRN PRN Reason: pain, moderate Stop: 07/10/20 14:02 Last Admin: 06/12/20 21:47 Dose: 50 mg Documented by: Tramadol HCl (Tramadol Hcl 50 Mg Tablet) 50 - 100 mg PO Q4H PRN PRN Reason: Moderate-Severe Pain & Pre PT Stop: 07/10/20 14:02 Last Admin: 06/13/20 07:52 Dose: 100 mg Documented by: Valsartan (Valsartan 80 Mg Tab) 80 mg PO 1200 CRISTAL Stop: 07/11/20 11:59 Last Admin: 06/12/20 11:21 Dose: 80 mg Documented by: Vitamin D (Cholecalciferol 1,000 Units 25 Mcg Tab) 1,000 units PO BID CRISTAL Stop: 07/09/20 08:59 Last Admin: 06/12/20 20:48 Dose: 1,000 units Documented by: Warfarin Sodium (Warfarin Sod 5 Mg Tab) 5 mg PO DAILY@1600 [facility], [facility] Stop: 07/10/20 15:59 Last Admin: 11/22/20 15:03 Dose: 5 mg Documented by: (1) Closed sacral fracture Encounter type: initial encounter Zone of sacrum fracture: unspecified portion of sacrum Qualified Code(s): S32.10XA - Unspecified fracture of sacrum, initial encounter for closed fracture
[2020-06-13] MEDS: INSULIN ASPART 100 UNITS/ML 3 ML PEN SC SCH ×4 (08:52→21:54)
[2020-06-13] MEDS: ENTACAPONE 200 MG TAB PO SCH ×3 (08:54→20:42)
[2020-06-13] MEDS: LORazepam 0.5 MG TAB PO SCH ×2 (08:54→20:41)
[2020-06-13] MEDS: ESCITALOPRAM OXALATE 10 MG TAB PO SCH (08:55)
[2020-06-13] MEDS: CARBIDOPA/LEVODOPA 25-250 1 EA TAB PO SCH ×4 (08:56→20:42)
[2020-06-13] MEDS: CHOLECALCIFEROL 1,000 UNITS 25 MCG TAB PO SCH ×2 (08:57→20:42)
[2020-06-13] MEDS: LIDOCAINE 5% 1 PATCH TD SCH ×2 (10:05→22:11)
--- NOTE | 2020-06-13 12:11 | Orthopedic Progress Note ---
Date of Service June 13, 2020 Assessment & Plan (1) Closed sacral fracture: Admission and Anticipated Discharge Date Admission Date: June 08, 2020 This time the patient will continue with transfers and ambulation as tolerated. She is cleared to return to rehab per orthopedics. Drain is to be removed today. Subjective Patient's back pain is improved. Struggling with right knee arthritis. Physical Exam Physical Exam: Patient has good strength testing appears much more comfortable today. Results & Data ([facility]) Vital Signs (Past 12 Hours) Vital Signs Temp Pulse Pulse Resp BP BP Pulse Ox 06/13/20 11:36 36.9 C 68 16 109/51 L 96 06/13/20 11:32 97 06/13/20 06:55 37.0 C 91 H 20 132/75 92 06/13/20 04:00 36.8 C 93 H 20 138/81 96 (1) Closed sacral fracture Encounter type: initial encounter Zone of sacrum fracture: unspecified portion of sacrum Qualified Code(s): S32.10XA - Unspecified fracture of sacrum, initial encounter for closed fracture
[2020-06-13] MEDS: dilTIAZem HCL 120 MG CAPCR PO SCH (12:59)
[2020-06-13] MEDS: VALSARTAN 80 MG TAB PO SCH (13:00)
[2020-06-13] MEDS: CALCITRIOL 0.25 MCG CAPSULE PO SCH (13:01)
[2020-06-13] MEDS: RALOXIFENE HCL 60 MG TAB PO SCH (13:01)
[2020-06-13] MEDS: oxyCODONE HCL IR 5 MG TAB (IMMEDIATE RELEASE) PO PRN (13:52)
[2020-06-13] MEDS ORDERED: POTASSIUM CHLORIDE CRTAB 20 MEQ TABCR PO STA (18:10)
[2020-06-13] MEDS: DOCUSATE SODIUM/SENNA 50/8.6MG TAB PO SCH (20:42)
[2020-06-13] MEDS: ATORVASTATIN 40 MG TAB PO SCH (20:42)
[2020-06-14 06:05] LABS: Hematocrit (blood only) 32.5 % (37-47); Hemoglobin 10.6 g/dL (12.0-16.0); Mean Corpuscular Hemoglobin 29.2 pg (25-34); Mean Corpuscular Hgb Conc 32.6 g/dL (32-36); Mean Corpuscular Volume 89.5 fL (80-100); Mean Platelet Volume 10.7 fL (7.4-10.4); Platelet Count 163 K/uL (130-400); RDW Coefficient of Variation 15.1 % (11.5-14.5); Red Blood Count 3.63 M/uL (4.2-5.4); White Blood Count 8.74 K/uL (4.8-10.8)
[2020-06-14 06:33] LABS: BUN Creatinine Ratio 22.2 (10-20); Est GFR (African American) 90.8; Est GFR (Non-African American) 78.4; Potassium 3.8 mmol/L (3.5-5.1)
[2020-06-14] MEDS: POLYETHYLENE (MIRALAX) 17 GM PACK PO SCH ×2 (06:40→12:21)
[2020-06-14] MEDS: LIDOCAINE 5% 1 PATCH TD SCH (08:22)
[2020-06-14] MEDS: LORazepam 0.5 MG TAB PO SCH (08:22)
[2020-06-14] MEDS: ENTACAPONE 200 MG TAB PO SCH ×2 (08:22→12:23)
[2020-06-14] MEDS: ESCITALOPRAM OXALATE 10 MG TAB PO SCH (08:22)
[2020-06-14] MEDS: CHOLECALCIFEROL 1,000 UNITS 25 MCG TAB PO SCH (08:23)
[2020-06-14] MEDS: CARBIDOPA/LEVODOPA 25-250 1 EA TAB PO SCH ×2 (08:23→12:22)
[2020-06-14] MEDS: INSULIN ASPART 100 UNITS/ML 3 ML PEN SC SCH ×2 (08:28→12:24)
--- NOTE | 2020-06-14 09:09 | Hospitalist Progress Note ---
Date of Service June 14, 2020 Assessment & Plan (1) Closed sacral fracture: Recent back surgery, status post lumbar decompression fusion w/ Dr. 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 Closed sacral fracture Orthopedic spine consult RE sacral fracture Now pt is s/p surgical stabilization, which required extending the lumbar fusion to the pelvis by way of iliac bolts 06/10/20 Pt tolerated procedure well Transfers bed to chair with ambulation as tolerated with a walker. Analgesia Incentive spirometer q1 hr Post op recommendations by surgery Monitor H&H DC likely to rehab (back to [facility]) or SNF Acute blood loss anemia/ post-op expected and mild, no need for blood transfusion at this time Hgb 11, cont. to monitor HTN, at goal, well controlled Facilitate home BP meds Held valsartan on admission given borderline hyperkalemia, gentle IVF Medical telemetry given blood pressure elevation Now valsartan restarted, K 3.7 AF on Coumadin, rate controlled, INR supratherapeutic on admission, then revers ed to 1.2 Vitamin K 1 dose given on admission to reverse Coumadin coagulopathy in preparation for surgery warfarin restarted, INR now therapeutic at 2.6 monitor INR warfarin 2.5 mg daily Nonsustained ventricular tachycardia and a pause 3.1-second pause recorded during presumed hours of sleep. No associated symptoms. There was also an isolated 7 beat tiara of nonsustained ventricular tachycardia without associated symptoms. Recent dobutamine stress echo demonstrating normal left ventricular systolic function, no evidence of inducible ischemia. Discussed this with cardiology, patient considered low risk for sudden cardiac . Recommend continue current cardiovascular medications including warfarin for goal INR of 2.0-3.0. No further inpatient cardiology testing or intervention is indicated at this time. Outpatient cardiology follow-up as scheduled. Hyperlipidemia on statin Rx Parkinson's disease, stable on regimen, Facilitate Parkinson's disease medication regimen DM 2 diet-controlled, well-controlled as of recent outpatient hemoglobin A1c of 6.3% April 2020, ISS BG goal [id number] Borderline hyperkalemia, current K 3.7 DVT prophylaxis. SCDs while INR less than 2, coumadin, INR therapeutic at 2.6 Full code Disposition: plan to dc to [facility] Admission and Anticipated Discharge Date Admission Date: June 08, 2020 Subjective Patient seen in follow-up for back pain, arrhythmia and other med. conditions, after orthopedic surgery. Patient lying in bed in no acute distress. Denies any fevers, chills, chest pain, shortness of breath. Patient reports that her appetite is good, and she is also moving better now. Plan to return to [facility]. Review of Systems Review of Systems: All systems reviewed & are unremarkable except as noted in HPI & below Constitutional: no fever and no chills Respiratory: no cough and no dyspnea Cardiovascular: no chest pain and no palpitations Gastrointestinal: no abdominal pain, no nausea and no vomiting Physical Exam Physical Exam: GENERAL: elderly female laying in bed, in NAD HEENT: NC/AT, [place] palpebral conjunctivae, no ptosis NECK : Supple, no tenderness CHEST : CTA, no tenderness HEART : Irregular, no obvious murmurs ABDOMEN: Some distention, nontender, + bowel sounds, obese BACK : Low back tenderness, R medial knee tenderness no edema or erythema EXTREMITIES : No LE swelling/tenderness, moves extremities SKIN: Normal color, warm NEUROLOGIC : alert and oriented x3, no facial asymmetry, speech fluent, moves extremities Results & Data Results & Data ([facility]) Vital Signs (Past 12 Hours) Vital Signs Temp Pulse Pulse Resp BP Pulse Ox 06/14/20 07:35 36.9 C 85 18 142/84 H 97 06/14/20 04:04 37.0 C 89 20 137/76 96 06/14/20 00:30 89 06/13/20 23:35 37.8 C H 85 20 150/83 H 97 Laboratory Results 06/14/20 06/14/20 06/14/20 Range/Units 07:25 05:37 05:37 WBC 8.74 (4.8-10.8) K/uL RBC 3.63 L (4.2-5.4) M/uL Hgb 10.6 L (12.0-16.0) g/dL Hct 32.5 L (37-47) % MCV 89.5 (80-100) fL MCH 29.2 (25-34) pg MCHC 32.6 (32-36) g/dL RDW Std Deviation 49.0 H (36.4-46.3) fL RDW Coeff of Ratna 15.1 H (11.5-14.5) % Plt Count 163 (130-400) K/uL MPV 10.7 H (7.4-10.4) fL Sodium 138 (136-145) mmol/L Potassium 3.8 (3.5-5.1) mmol/L Chloride 108 H (98-107) mmol/L Carbon Dioxide 28 (21-32) mmol/L Anion Gap 2.0 L (3-11) BUN 17 (7-18) mg/dl Creatinine 0.76 (0.6-1.2) mg/dl Est Cr Clr Drug Dosing 76.0 ml/min Est GFR ( Amer) 90.8 Est GFR (Non-Af Amer) 78.4 BUN/Creatinine Ratio 22.2 H (10-20) Glucose 117 H (70-99) mg/dl POC Glucose 106 H (70-99) mg/dl Calcium 8.0 L (8.5-10.1) mg/dl 06/13/20 06/13/20 06/13/20 Range/Units 20:14 16:39 11:29 WBC (4.8-10.8) K/uL RBC (4.2-5.4) M/uL Hgb (12.0-16.0) g/dL Hct (37-47) % MCV (80-100) fL MCH (25-34) pg MCHC (32-36) g/dL RDW Std Deviation (36.4-46.3) fL RDW Coeff of Ratna (11.5-14.5) % Plt Count (130-400) K/uL MPV (7.4-10.4) fL Sodium (136-145) mmol/L Potassium (3.5-5.1) mmol/L Chloride (98-107) mmol/L Carbon Dioxide (21-32) mmol/L Anion Gap (3-11) BUN (7-18) mg/dl Creatinine (0.6-1.2) mg/dl Est Cr Clr Drug Dosing ml/min Est GFR ( Amer) Est GFR (Non-Af Amer) BUN/Creatinine Ratio (10-20) Glucose (70-99) mg/dl POC Glucose 119 H 104 H 136 H (70-99) mg/dl Calcium (8.5-10.1) mg/dl (1) Closed sacral fracture Encounter type: initial encounter Zone of sacrum fracture: unspecified portion of sacrum Qualified Code(s): S32.10XA - Unspecified fracture of sacrum, initial encounter for closed fracture
[2020-06-14] MEDS ORDERED: POTASSIUM CHLORIDE CRTAB 20 MEQ TABCR PO STA (09:57)
[2020-06-14] MEDS ORDERED: MAGNESIUM OXIDE 400 MG TAB PO SCH (10:00)
--- NOTE | 2020-06-14 11:21 | Cardiology Consultation ---
Date of Consultation June 14, 2020 Assessment & Plan (1) Permanent atrial fibrillation: (2) NSVT (nonsustained ventricular tachycardia): (3) Slow ventricular response: Telemetry reviewed demonstrating predominantly rate controlled atrial fibrillation. There was one asymptomatic 3.1-second pause recorded during presumed hours of sleep. No associated symptoms. There was also an isolated 7 beat tiara of nonsustained ventricular tachycardia without associated symptoms. Recent dobutamine stress echo demonstrating normal left ventricular systolic function, no evidence of inducible ischemia. Patient considered low risk for sudden cardiac . Recommend continue current cardiovascular medications including warfarin for goal INR of 2.0-3.0. No further inpatient cardiology testing or intervention is indicated at this time. Outpatient cardiology follow-up as scheduled. Thank you for allowing to participate in the care of your patient. History of Present Illness Reason for Consultation: Abnormal telemetry with 3.1-second pause and 7 beat tiara of nonsustained ventricular tachycardia Requesting Physician: Dr. Mendosa Attending Physician: Anurag Mendosa MD History of Present Illness 74-year-old female admitted for elective spinal surgery. She was scheduled for transfer to [facility] for rehab today, however, upon review of telemetry there is not isolated 7 beat tiara of nonsustained ventricular tachycardia occurring at 7:59 AM 06/13 as well as a 3.1-second pause occurring 06/12/2020 at 01 20 4 AM. Otherwise, telemetry has demonstrated rate controlled atrial fibrillation with heart rate in the 80s. Patient was evaluated preoperatively in the cardiology clinic. She proceeded with surgery at moderate cardiovascular risk. Recent dobutamine stress echo performed January 2020 negative for inducible ischemia. Baseline left ventricular function normal without regional wall motion abnormality. No significant valvular pathology with indirect evidence of mild pulmonary hypertension noted. Warfarin held preoperatively without bridging therapy. Anticoagulation resumed postoperatively. Her INR is therapeutic, 2.6 today. Patient feeling well from a cardiovascular perspective. Denies palpitations, lightheadedness, dizziness, syncope, or near syncope. No chest discomfort, heaviness, or unusual shortness of breath. Notes low back discomfort since surgery. Pain controlled at this time. No orthopnea, paroxysmal nocturnal dyspnea, or edema. Offers no other concerns/complaints at this time. Cardiac history: 1. Chronic atrial fibrillation 2. Hypertension 3. Hyperlipidemia 4. Family history of premature coronary disease Allergies Allergy/AdvReac Type Severity Reaction Status Date / Time pramipexole AdvReac Unknown hallucinati Verified 06/08/20 21:04 ons Home Medications Medication Instructions Recorded Confirmed Type atorvastatin [Lipitor] 80 mg PO PM 01/21/20 06/08/20 History calcitriol 0.5 mcg PO 1200 01/21/20 06/08/20 History carbidopa-levodopa [Sinemet] 1 tab PO QID 01/21/20 06/08/20 History cholecalciferol (vitamin D3) 25 mcg PO BID 01/21/20 06/08/20 History [Vitamin D3] diltiazem HCl [Cardizem] 120 mg PO 1200 01/21/20 06/08/20 History entacapone [Comtan] 200 mg PO TID 01/21/20 06/08/20 History escitalopram oxalate [Lexapro] 10 mg PO QAM 01/21/20 06/08/20 History lorazepam [Ativan] 0.5 mg PO BID 01/21/20 06/08/20 History raloxifene 60 mg PO 1200 01/21/20 06/08/20 History valsartan [Diovan] 80 mg PO 1200 01/21/20 06/08/20 History warfarin 5 mg PO QPM 01/21/20 06/08/20 History oxycodone 5 mg PO Q6H PRN #20 tab 05/18/20 06/08/20 Rx tramadol 50 mg PO Q6H PRN #20 tab 05/18/20 06/08/20 Rx Naloxone 4mg/0.1ml 4 mg INHALATION UD PRN 06/08/20 06/08/20 History warfarin 2.5 mg PO DAILY 06/13/20 06/13/20 History Patient History Medical History (Updated 06/14/20 @ 12:05 by Ky Mendiola DO) Anxiety Atrial fibrillation paroxysmal on warfarin CKD (chronic kidney disease) Depression DM type 2 (diabetes mellitus, type 2) diet controlled Hyperlipidemia Hypertension Obesity Osteoarthritis Parkinsons disease Urinary incontinence Vertigo Surgical History History of cholecystectomy lap cholecystectomy: 01/26/20: Grade 1 view, MAC#3, ETT 7 at [facility] History of incision and drainage shoulder> PT UNSURE OF DETAILS Hx of breast biopsy LEFT Hx of colonoscopy Family History Mother Atrial fibrillation Father Myocardial infarction Social History Smoking Status: Never smoker Second Hand Exposure: No; Do You Dip or Chew Tobacco: No; Hx Alcohol Use: No Hx Substance Use: No Preferred Language: [place] Communication Ability: Effective Lead Housekeeper Required: No Beliefs That Will Affect Care: None marital status: / Current Living Situation: Family Current Living Situation Comment: Lives in a house Other Information That Helps Us Care for You: No Feels Safe at Home: Yes Assistive Devices: Walker Review of Systems Review of Systems: All systems reviewed & are unremarkable except as noted in HPI & below Physical Exam Constitutional: well developed and well nourished; no acute distress Respiratory: normal respiratory effort; no respiratory distress and no labored breathing Auscultation: lungs clear to auscultation bilaterally; breath sounds present, no diminished lung sounds, no crackles, no rales, no rhonchi and no wheezes Cardiovascular: Rate/Rhythm: + irregularly irregular Heart Sounds: normal S1 and normal S2; no murmur Vessels: radial pulses present; no JVD and no carotid bruit Extremities: no edema Gastrointestinal (Abdomen): Inspection/Auscultation: abdomen normal to inspection and normal bowel sounds; abdomen not distended Percussion/Palpation: abdomen soft; abdomen nontender, no guarding and abdomen not rigid Skin: no rashes, warm and dry Neurologic: moves all extremities; no focal motor deficits Motor/Sensory: no tremor Psychiatric: A+Ox3, euthymic affect Results & Data ([facility]) Vital Signs (Past 12 Hours) Vital Signs Temp Pulse Pulse Resp BP Pulse Ox 06/14/20 07:35 36.9 C 85 18 142/84 H 97 06/14/20 04:04 37.0 C 89 20 137/76 96 06/14/20 00:30 89 06/13/20 23:35 37.8 C H 85 20 150/83 H 97
[2020-06-14] MEDS: dilTIAZem HCL 120 MG CAPCR PO SCH (12:19)
[2020-06-14] MEDS: RALOXIFENE HCL 60 MG TAB PO SCH (12:20)
[2020-06-14] MEDS: VALSARTAN 80 MG TAB PO SCH (12:20)
[2020-06-14] MEDS: CALCITRIOL 0.25 MCG CAPSULE PO SCH (12:22)
--- NOTE | 2020-06-14 13:45 | Discharge Summary ---
Date of Service June 14, 2020 Admission HPI Per Admitting Provider History obtained from patient and records. Medical history significant for PAF on Coumadin, hypertension, hyperlipidemia, Parkinson's disease, DM 2 diet-controlled. Last confinement under Orthopedics service 2.5 weeks ago for elective back surgery for lumbar spinal stenosis with neurogenic claudication. Patient discharged to [facility]. Patient noted worsening low back pain the last few days aggravated by walking. Bilateral lower extremity weakness as per patient. Usual urinary incontinence. No fever, no chills.. No recent trauma. Additional pain medications given at rehab facility ineffective for discomfort. Patient brought to the ER for evaluation after abnormal outpatient CT lumbar spine results noted. 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 Admission Exam Per Admitting Provider GENERAL: uncomfortable, no respiratory distress SKIN: Normal color, warm HEENT: [place] palpebral conjunctivae, no ptosis, dry buccal mucosa NECK : Supple, no tenderness CHEST : CTA, no tenderness HEART : Irregular, no obvious murmurs ABDOMEN: Some distention, nontender BACK : Low back tenderness, bilateral straight leg raise test positive EXTREMITIES : No LE swelling/tenderness, no other conspicuous deformities noted NEUROLOGIC : Coherent, no facial asymmetry, no other gross focality Principal Diagnosis Closed sacral fracture Atrial fibrillation, chronic Nonsustained ventricular tachycardia Discharge Exam GENERAL: elderly female laying in bed, in NAD HEENT: NC/AT, [place] palpebral conjunctivae, no ptosis NECK : Supple, no tenderness CHEST : CTA, no tenderness HEART : Irregular, no obvious murmurs ABDOMEN: Some distention, nontender, + bowel sounds, obese BACK : Low back tenderness, R medial knee tenderness no edema or erythema EXTREMITIES : No LE swelling/tenderness, moves extremities SKIN: Normal color, warm NEUROLOGIC : alert and oriented x3, no facial asymmetry, speech fluent, moves extremities Discharge Data Allergies Allergy/AdvReac Type Severity Reaction Status Date / Time pramipexole AdvReac Unknown hallucinati Verified 06/08/20 21:04 ons Consultations 06/08/20 20:03 ED Decision to Admit Stat 06/08/20 22:07 Consult Orthopedic Surgery Routine 06/10/20 14:03 Consult Case Management - Discharge Planning Routine 06/14/20 09:05 Consult Cardiology Routine Procedures Performed Operation Date: 06/10/20 09:35 Actual Procedures p Lumbar Pelvic Fusion with Iliac Bolts, Application of Bone Morphogenetic Protein and Allograft (Not Applicable) - Yehuda Marcelino DO Ordered Studies 06/10/20 12:00 FL fluoroscopy <1hr Routine FL pelvis 1-2V Routine Hospital Course (1) Closed sacral fracture: Recent back surgery, status post lumbar decompression fusion w/ Dr. Marcelino Unfortunately she has progressed to a sacral fracture beneath the fusion c onstruct Osteoporotic fractures of sacrum, L4 right transverse process and L5 bilateral transverse processes. Closed sacral fracture Orthopedic spine consult RE sacral fracture Now pt is s/p surgical stabilization, which required extending the lumbar fusion to the pelvis by way of iliac bolts 06/10/20 Pt tolerated procedure well Transfers bed to chair with ambulation as tolerated with a walker. Analgesia Incentive spirometer q1 hr Post op recommendations by surgery Monitor H&H DC likely to rehab (back to [facility]) or SNF Acute blood loss anemia/ post-op expected and mild, no need for blood transfusion at this time Hgb 11, stable HTN, at goal, well controlled Facilitate home BP meds Held valsartan on admission given borderline hyperkalemia, gentle IVF Medical telemetry given blood pressure elevation Now valsartan restarted, K 3.7 AF on Coumadin, rate controlled, INR supratherapeutic on admission, then reversed to 1.2 Vitamin K 1 dose given on admission to reverse Coumadin coagulopathy in preparation for surgery warfarin restarted, INR now therapeutic at 2.6 monitor INR warfarin 2.5 mg daily Nonsustained ventricular tachycardia and a pause 3.1-second pause recorded during presumed hours of sleep. No associated symptoms. There was also an isolated 7 beat tiara of nonsustained ventricular tachycardia without associated symptoms. Recent dobutamine stress echo demonstrating normal left ventricular systolic function, no evidence of inducible ischemia. Discussed this with cardiology, patient considered low risk for sudden cardiac . Recommend continue current cardiovascular medications including warfarin for goal INR of 2.0-3.0. No further inpatient cardiology testing or intervention is indicated at this time. Outpatient cardiology follow-up as scheduled. Hyperlipidemia on statin Rx Parkinson's disease, stable on regimen, Facilitate Parkinson's disease medication regimen DM 2 diet-controlled, well-controlled as of recent outpatient hemoglobin A1c of 6.3% April 2020, ISS BG goal [id number] Borderline hyperkalemia, current K 3.7 DVT prophylaxis. SCDs while INR less than 2, coumadin, INR therapeutic at 2.6 Full code Disposition: plan to [facility] Total Time Total Time Spent Total Time Spent (In Minutes): 40 Total Time Includes: Examination of the Patient, Discharge Planning, Medication Reconciliation and Communication With Other Providers Discharge Plan Discharge Items Patient Disposition: Transfer Inpatient Rehab Fac Reason For Visit: SACRAL FX, ELEVATED BP Discharge Diagnosis: Closed sacral fracture Atrial fibrillation, chronic Nonsustained ventricular tachycardia Activity: Per Instructions section Activity Comment: Continue with transfers and ambulation as tolerated Non-emergency contact: Primary Care Provider, Surgeon and Transportation Assistant Call non-emergency contact if: you have any medication questions and your symptoms worsen Follow-up/Referrals: Titi Baez DO [Primary Care Provider] - (Date & Time 06/20/2020 3:00 PM Provider Titi Baez DO Department General Internal Medicine [facility] ) Diet: Carb Consistent or DM2 and Heart Healthy Addtl Attending Provider Instructions: Follow-up with your primary care physician, appointment was scheduled for you for June 20, 2020. Recommend to have your INR checked, within the next 2 days. Follow-up with your outpatient staging technician, you will be contacted about the appointment. Addtl Cotton Classer Aide Provider Instructions: ACTIVITY RECOMMENDATIONS: SELF CARE INSTRUCTIONS AFTER THORACIC/LUMBAR FUSIONS 1. You may walk to your tolerance. It is good exercise for your legs and back. Expect some back and intermittent leg aches and pains. 2. You may perform "counter-top" level activities (make a sandwich, lorenzo with a project, etc.). 3. No bending or lifting of more than 10 pounds or back twisting of any nature (roll like a log when turning in bed). 4. You may ride in a car for 20-30 minutes at a time. No driving until after your first visit with your doctor. 5. Frequent changes of position and restricting sitting to 30 minutes at a time will help limit the amount of back spasms and stiffness you may experience. 6. You may discontinue the use of ambulatory aids (cane, crutches, etc.) once your strength and confidence allow. 7. You may intramural director the shower and let water strike your incision when you arrive home at least once daily. Do not take a tub bath, sit in a hot tub or go into a swimming pool until after your first recheck in the office. SPECIAL CARE INSTRUCTIONS: VERY IMPORTANT TO READ AND REVIEW A. Your surgical incision has been closed with a cosmetic suture under the skin that will dissolve in about 6 weeks. In 14 days, you can use a pair of clean scissors and cut the suture that is left outside of the skin at the ends of your incision. 1. The small skin tapes can be removed 7 days after surgery if they have not fallen off by that point. 2. You may keep the wound open to air as much as possible to promote healing after post-op day number 5 unless told otherwise by your doctor. 3. If you think the wound looks like it is becoming infected (redness or worsening drainage) and/or you are experiencing fever, chill or worsening back pain and muscle spasms, contact the office so that we may evaluate you as soon as possible. B. Complications are uncommon, but please contact us if you have any signs or symptoms of: 1. wound infection (fever higher than 102.5 degrees F, redness, separation of wound, drainage, or increasing pain from the incision) 2. blood clots in legs (pain, swelling, redness and warmth in legs) 3. urinary tract infection (fever higher than 102.5 degrees F, burning upon urination or increased frequency of urination) 4. nerve problems (inability to walk on your toes or heels, numbness, loss of bowel or bladder control) 5. any other symptoms that concern you C. Please call the office at if you have any concerns or questions about your operation or recovery. D. No smoking! Smoking drastically decreases the chance of a solid fusion. E. Do not take any anti-inflammatory medications (Indocin, Advil, Motrin, Aspirin, Naprosyn, etc.) as these may inhibit the chance of a solid fusion. Tylenol is okay to take for pain. MANAGING PAIN AFTER SPINAL SURGERY 1. Narcotic medication is intended for short-term use and will be provided for surgical pain. Surgical pain usually lasts for a period of 4-6 weeks. Narcotic medication includes Percocet, Vicodin, Darvocet, Tylenol #3 or Lortab. 2. Longer-term pain is more appropriately treated with non-narcotic medication such as Tylenol ES. 3. Muscle spasm is not appropriately treated with narcotics. Muscle relaxers such as Soma, Flexeril or Skelaxin can be used along with Tylenol ES. 4. Remember that we all live with some "aches and pains". This is not unusual or uncommon after an injury or as we get older. a. Back pain is expected and may include muscle spasms for 4 to 6 weeks after surgery. The pain should gradually improve. If the pain worsens for no apparent reason, please contact the office. b. Intermittent leg pain may also be experienced and should not be concerned about unless it worsens for no apparent reason. If so, please contact the office. 5. We will provide appropriate medication within the normal guidelines of their prescribed use. We will also be very cautious and aware of potential abuse and extended duration of patients' medication needs. a. Pain medications are for your comfort and to assist with sleep and rest so that the tissue can heal. They are not provided in order to return to normal activity and should not be used through the day. To do so or worsening pain at night can result from ongoing tissue damage and development of tolerance to the prescribed medicine. 6. Please allow 2-3 days to process refills. Prescriptions will not be mailed but must be picked up at the office. FOLLOW UP VISIT: Keep your scheduled follow-up appointment. Any questions, please call the office at . Pending Studies at Discharge: No Stand-Alone Forms: My [facility] Skilled Items Patient informed of condition?: Yes DNR: No Discharge Level of Care: Acute rehab Communicable Disease: No Discharge Prognosis: Stable Lines: None Urinary Catheter: No Medications and DC Order Prescriptions: New sennosides-docusate sodium [Senokot-S] 8.6-50 mg Tablet 2 tab PO HS PRN (Reason: constipation) 10 Days Qty: 20 RF: 0 polyethylene glycol 3350 [Miralax] 17 gram Powder In Packet 17 g PO BID PRN (Reason: constipation) Qty: 14 RF: 0 bisacodyl 10 mg Suppository 10 mg WA DAILY PRN (Reason: constipation) 10 Days RF: 0 lidocaine 5 % Adhesive Patch,Medicated 1 patch transdermal QAM 10 Days Qty: 15 RF: 0 Continued tramadol 50 mg tablet 50 mg PO Q6H PRN (Reason: pain, moderate) Qty: 20 RF: 0 oxycodone 5 mg tablet 5 mg PO Q6H PRN (Reason: pain, severe) Qty: 20 RF: 0 Naloxone 4mg/0.1ml 4 mg inhalation UD PRN (Reason: overdose) RF: 0 warfarin 2.5 mg Tablet 2.5 mg PO DAILY RF: 0 atorvastatin [Lipitor] 40 mg Tablet 80 mg PO PM RF: 0 carbidopa-levodopa [Sinemet] 25-250 mg Tablet 1 tab PO QID RF: 0 valsartan [Diovan] 80 mg Tablet 80 mg PO 1200 RF: 0 entacapone [Comtan] 200 mg Tablet 200 mg PO TID RF: 0 diltiazem HCl [Cardizem] 120 mg Tablet 120 mg PO 1200 RF: 0 lorazepam [Ativan] 0.5 mg Tablet 0.5 mg PO BID RF: 0 calcitriol 0.5 mcg Capsule 0.5 mcg PO 1200 RF: 0 raloxifene 60 mg Tablet 60 mg PO 1200 RF: 0 escitalopram oxalate [Lexapro] 10 mg Tablet 10 mg PO QAM RF: 0 cholecalciferol (vitamin D3) [Vitamin D3] 25 mcg (1,000 unit) Tablet 25 mcg PO BID RF: 0 Discontinued warfarin 5 mg Tablet 5 mg PO QPM RF: 0 Discharge Orders: Discharge Order (Routine); Ordered 06/14/20 Ordered By: Anurag Mendosa Admission Data Admit Date/Time: 06/08/20 20:48 Attending Provider: Anurag Mendosa Admit Provider: Gamal Marie Primary Care Provider: Titi Baez Other Providers: Gamal Marei ; Yehuda Marcelino ; [facility] ; Ky Mendiola
== END 2020-06-14 15:00 | DRG 457 ==
LOC: ED 18:01 → 2N 20:48 → EDINP 06-11 23:58

== ENCOUNTER 2020-09-14 16:28 | Inpatient (IN) ==
[2020-09-14] MEDS ORDERED: SODIUM CHLORIDE 0.9% 500 ML IV SCH (17:00)
--- NOTE | 2020-09-14 17:00 | Emergency Department Note ---
Impression & Plan Fall, Contusion of multiple sites, Rhabdomyolysis, Acute UTI (urinary tract infection) ED Provider Note NAME: NANCY RODRIGUEZ AGE: 75 SEX: F : 1945 ARRIVES VIA: Ambulance INFORMANT: Patient, ED PROVIDER(S): Kb Freeman DO CHIEF COMPLAINT: Left-sided pain HPI: The patient is a 75-year-old female who presented to the emergency department by ambulance for an evaluation after being found on the floor in her home. The patient states that she fell last evening. She fell while ambulating and tried to hold onto her dresser when she fell onto her left side. The patient had very significant pain on her left arm her left hand her left hip and thinks that she also struck her head. The patient does take blood thinners for chronic atrial fibrillation. She also has a history of chronic renal insufficiency. The patient describes no neck pain at this time. She denies having any back or abdominal pain. The patient states that she is had similar falls in the past. She called 911 and was brought to the emergency department via ambulance. The patient normally lives at her own home. She states pain is moderate at this time. She states the pain in her lower extremities is chronic but worsened compared to baseline. The patient was not seen by her primary care provider prior to coming to the emergency department. ROS: See above HPI for pertinent positives & negatives. A total of 10 systems reviewed and were otherwise negative. PAST MEDICAL HISTORY: See Below PAST SURGICAL HISTORY: See Below FAMILY HISTORY: See Below SOCIAL HISTORY: See Below HOME MEDICATIONS: See Below ALLERGIES: See Below VITALS: See Below PHYSICAL EXAMINATION: GENERAL: The patient is awake and alert. She is somewhat anxious appearing. EYES: The conjunctivae are clear. The pupils are round and reactive. EARS, NOSE, MOUTH AND THROAT: The nose is without any evidence of any deformity. NECK: The neck is nontender and supple. RESPIRATORY: Normal respiratory effort is noted there is no evidence of wheezing rhonchi or rales CARDIOVASCULAR: Irregular rhythm was noted to auscultation. No definite murmur was appreciated. GASTROINTESTINAL: The abdomen is soft. Abdomen is nontender. BACK: No midline tenderness was appreciated on exam. MUSCULOSKELETAL/EXTREMITIES: There is difficulty with range of motion testing in the left upper extremity. The patient does not have any pain with range of motion testing of the left shoulder but does have significant ecchymosis. She does have pain with extension of the right elbow but no deformity or crepitus. She does have pain on her left hand with palpation over the fourth and fifth digits. There is also swelling and ecchymosis over these digits. The patient also has pain with range of motion testing of the left hip. SKIN: Pedal edema was noted bilaterally. Skin was warm and dry. NEUROLOGIC: Patient is awake alert and oriented x3. MEDICAL DECISION MAKING: The patient is a 75-year-old female who presented to the emergency department after being found on the floor at her home. The patient had significant injury to the left side of her body. She had a left-sided head injury left shoulder contusion left hip contusion and was also found to have rhabdomyolysis. I discussed the patient's laboratory and radiographic studies with her. I also discussed the patient's condition with the on-call [facility] hospitalist. The patient may have urinary tract infection based on her urinalysis. She was st arted on IV antibiotics. She may require further evaluation as well as an evaluation of her social situation given that she was on the floor for such a period of time. She was agreeable to this evaluation. She was reevaluated multiple times. Triage Nursing notes reviewed. Prior medical records reviewed Vital Signs: reviewed and remarkable for elevated blood pressure. Differential diagnosis: Fracture, dislocation, contusion, intra-abdominal, pneumothorax, intrathoracic, intracranial, neurologic, compartment syndrome, rhabdomyolysis, as well as other pathologies. ER treatment provided: See below Diagnostics interpreted by me: ECG: EKG was obtained in the emergency department. My interpretation is atrial fibrillation at 92 bpm. Low voltage was noted throughout. Diffuse ST segment abnormalities were noted with poor R wave progression. This was compared to a tracing from June 092019. No significant changes were noted. Cardiac Monitoring: An order was placed for continuous cardiac monitoring. The monitor shows a rate of 92 bpm with sinus rhythm. Laboratory studies: As stated above and show below. Imaging studies: See below Consultation(s): I discussed this case with Dr. Zuniga [facility]. Past Med/Surg History Medical History (Updated 09/15/20 @ 12:31 by Kb Freeman DO) Anxiety Atrial fibrillation paroxysmal on warfarin CKD (chronic kidney disease) Depression DM type 2 (diabetes mellitus, type 2) diet controlled Hyperlipidemia Hypertension Obesity Osteoarthritis Parkinsons disease Urinary incontinence Vertigo Surgical History History of cholecystectomy lap cholecystectomy: 01/26/20: Grade 1 view, MAC#3, ETT 7 at [facility] History of incision and drainage shoulder> PT UNSURE OF DETAILS Hx of breast biopsy LEFT Hx of colonoscopy Family History Mother Atrial fibrillation Father Myocardial infarction Social History Smoking Status: Never smoker Second Hand Exposure: No; Do You Dip or Chew Tobacco: No; Tobacco Cessation Education Requested by Patient: No Hx Alcohol Use: No Hx Substance Use: No Preferred Language: Divehi Communication Ability: Effective Business Advisor Required: No Beliefs That Will Affect Care: None marital status: / Current Living Situation: Alone Current Living Situation Comment: Lives in a house Other Information That Helps Us Care for You: No Feels Safe at Home: Yes Safety Concerns: Feels Safe At This Time Assistive Devices: Walker and Wheelchair Allergies Allergies Allergy/AdvReac Type Severity Reaction Status Date / Time pramipexole AdvReac Unknown hallucinati Verified 06/08/20 21:04 ons Home Meds Home Medications Medication Instructions Recorded Confirmed atorvastatin [Lipitor] 80 mg PO QPM 01/21/20 09/14/20 calcitriol 0.5 mcg PO DAILY@1200 01/21/20 09/14/20 carbidopa-levodopa [Sinemet] 1 tab PO QID 01/21/20 09/14/20 cholecalciferol (vitamin D3) 25 mcg PO BID 01/21/20 09/14/20 [Vitamin D3] diltiazem HCl [Cardizem] 120 mg PO DAILY@1200 01/21/20 09/14/20 entacapone [Comtan] 200 mg PO TID 01/21/20 09/14/20 escitalopram oxalate [Lexapro] 10 mg PO QAM 01/21/20 09/14/20 lorazepam [Ativan] 0.5 mg PO BID 01/21/20 09/14/20 raloxifene 60 mg PO DAILY@1200 01/21/20 09/14/20 valsartan [Diovan] 80 mg PO DAILY@1200 01/21/20 09/14/20 warfarin See Rx Instructions .ROUTE .COMPLEX 06/13/20 09/14/20 docusate sodium [Col-Rite] 200 mg PO DAILY PRN 09/12/20 09/14/20 polyethylene glycol 3350 [Miralax] 17 g PO BID PRN 09/14/20 09/14/20 Results & Data (ED) Vital Signs Vital Signs - 24 hr 09/14/20 16:28 09/14/20 16:42 09/14/20 17:09 Temperature 37.0 C 37.0 C Temperature Source Oral Oral Pulse Rate 94 H 94 H Pulse Rate [Right Finger] 95 H Pulse Rate from SpO2 Sensor Pulse Rhythm [Right Finger] Irregular Respiratory Rate Respiratory Effort / Characteristics Non-Labored Spontaneous Non-Labored Spontaneous Respiratory Depth Normal Normal Blood Pressure 156/85 H Blood Pressure [Right Arm] 156/85 H Blood Pressure Mean 108 Blood Pressure Mean [Right Arm] 108 Blood Pressure Position Sitting Blood Pressure Position [Right Arm] Sitting Pulse Oximetry 97 97 97 Oxygen Delivery Method Room Air Room Air Room Air Sepsis Recent Fever Within 48 Hours No Sepsis New/Unexplained Change in Mental Status No Sepsis Action Taken by Nursing No Action Required 09/14/20 18:00 09/14/20 18:30 09/14/20 19:18 Temperature Temperature Source Pulse Rate 88 87 Pulse Rate [Right Finger] 98 H Pulse Rate from SpO2 Sensor 91 H 88 Pulse Rhythm [Right Finger] Respiratory Rate 29 H 20 18 Respiratory Effort / Characteristics Respiratory Depth Blood Pressure 156/85 H 142/78 H Blood Pressure [Right Arm] 152/85 H Blood Pressure Mean 108 99 Blood Pressure Mean [Right Arm] 107 Blood Pressure Position Blood Pressure Position [Right Arm] Pulse Oximetry 97 97 98 Oxygen Delivery Method Room Air Sepsis Recent Fever Within 48 Hours Sepsis New/Unexplained Change in Mental Status Sepsis Action Taken by [facility] Medications Current Medication List: was personally reviewed by me Laboratory Data Attestation: I reviewed the patient's lab results. Result diagrams: 09/15/20 06:10 09/15/20 06:10 Lab Results 09/14/20 09/14/20 09/14/20 Range/Units 16:47 16:47 16:47 WBC 10.64 (4.8-10.8) K/uL RBC 5.13 (4.2-5.4) M/uL Hgb 12.9 (12.0-16.0) g/dL Hct 40.1 (37-47) % MCV 78.2 L (80-100) fL MCH 25.1 (25-34) pg MCHC 32.2 (32-36) g/dL RDW Std Deviation 48.3 H (36.4-46.3) fL RDW Coeff of Ratna 16.7 H (11.5-14.5) % Plt Count 247 (130-400) K/uL MPV 11.2 H (7.4-10.4) fL Immature Gran % (Auto) 0.1 % Neut % (Auto) 82.1 % Lymph % (Auto) 7.1 % [place] % (Auto) 10.5 % Eos % (Auto) 0.0 % Baso % (Auto) 0.2 % Neut # (Auto) 8.73 H (1.4-6.5) K/uL Lymph # (Auto) 0.76 L (1.2-3.4) K/uL [place] # (Auto) 1.12 H (0.11-0.59) K/uL Eos # (Auto) 0.00 (0-0.5) K/uL Baso # (Auto) 0.02 (0-0.2) K/uL Immature Gran # (Auto) 0.01 (0.00-0.02) K/uL PT 18.2 H (9.0-12.0) Seconds INR 1.9 H (0.9-1.1) APTT 30.3 (21.0-31.0) Seconds PTT Ratio 1.2 Sodium 142 (136-145) mmol/L Potassium 3.5 (3.5-5.1) mmol/L Chloride 109 H (98-107) mmol/L Carbon Dioxide 26 (21-32) mmol/L Anion Gap 7.0 (3-11) BUN 26 H (7-18) mg/dl Creatinine 1.16 (0.6-1.2) mg/dl Est Cr Clr Drug Dosing 42.8 ml/min Est GFR ( Amer) 54.1 Est GFR (Non-Af Amer) 46.7 BUN/Creatinine Ratio 22.6 H (10-20) Glucose 104 H (70-99) mg/dl Calcium 9.6 (8.5-10.1) mg/dl Magnesium 2.0 (1.8-2.4) mg/dl Total Bilirubin 1.0 (0.2-1) mg/dl AST 129 H (15-37) U/L ALT 30 (12-78) U/L Alkaline Phosphatase 87 (45-117) U/L Total Creatine Kinase 3563 H (26-192) U/L CK-MB (CK-2) 54.1 H (0.5-3.6) ng/ml CK/CKMB % Calc 1.5 (0-3.0) Troponin I 0.019 (0-0.045) ng/ml Total Protein 7.3 (6.4-8.2) gm/dl Albumin 3.5 (3.4-5.0) gm/dl Globulin 3.8 (2.5-4.0) gm/dl Albumin/Globulin Ratio 0.9 (0.9-2) TSH 2.040 (0.300-4.500) uIu/ml Urine Color Urine Appearance (Clear) Urine pH (4.5-7.5) Ur Specific [place] (1.000-1.030) Urine Protein (Negative) Urine Glucose (UA) (Negative) Urine Ketones (Negative) Urine Blood (Negative) Urine Nitrite (Negative) Urine Bilirubin (Negative) Urine Urobilinogen (Negative) Ur Leukocyte Esterase (Negative) Urine WBC (Auto) (0-5) /hpf Urine RBC (Auto) (0-4) /hpf U Hyaline Cast (Auto) (0-5) /lpf U Epithel Cells (Auto) (0-5) /lpf Urine Bacteria (Auto) (Negative) COVID-19 Eval Order SARS-CoV-2, RNA, NAAT (NEGATIVE) 09/14/20 09/14/20 09/14/20 Range/Units 18:00 19:10 19:10 WBC (4.8-10.8) K/uL RBC (4.2-5.4) M/uL Hgb (12.0-16.0) g/dL Hct (37-47) % MCV (80-100) fL MCH (25-34) pg MCHC (32-36) g/dL RDW Std Deviation (36.4-46.3) fL RDW Coeff of Ratna (11.5-14.5) % Plt Count (130-400) K/uL MPV (7.4-10.4) fL Immature Gran % (Auto) % Neut % (Auto) % Lymph % (Auto) % [place] % (Auto) % Eos % (Auto) % Baso % (Auto) % Neut # (Auto) (1.4-6.5) K/uL Lymph # (Auto) (1.2-3.4) K/uL [place] # (Auto) (0.11-0.59) K/uL Eos # (Auto) (0-0.5) K/uL Baso # (Auto) (0-0.2) K/uL Immature Gran # (Auto) (0.00-0.02) K/uL PT (9.0-12.0) Seconds INR (0.9-1.1) APTT (21.0-31.0) Seconds PTT Ratio Sodium (136-145) mmol/L Potassium (3.5-5.1) mmol/L Chloride (98-107) mmol/L Carbon Dioxide (21-32) mmol/L Anion Gap (3-11) BUN (7-18) mg/dl Creatinine (0.6-1.2) mg/dl Est Cr Clr Drug Dosing ml/min Est GFR ( Amer) Est GFR (Non-Af Amer) BUN/Creatinine Ratio (10-20) Glucose (70-99) mg/dl Calcium (8.5-10.1) mg/dl Magnesium (1.8-2.4) mg/dl Total Bilirubin (0.2-1) mg/dl AST (15-37) U/L ALT (12-78) U/L Alkaline Phosphatase (45-117) U/L Total Creatine Kinase (26-192) U/L CK-MB (CK-2) (0.5-3.6) ng/ml CK/CKMB % Calc (0-3.0) Troponin I (0-0.045) ng/ml Total Protein (6.4-8.2) gm/dl Albumin (3.4-5.0) gm/dl Globulin (2.5-4.0) gm/dl Albumin/Globulin Ratio (0.9-2) TSH (0.300-4.500) uIu/ml Urine Color Dark Yellow Urine Appearance Clear (Clear) Urine pH 5.0 (4.5-7.5) Ur Specific [place] 1.025 (1.000-1.030) Urine Protein Trace H (Negative) Urine Glucose (UA) Negative (Negative) Urine Ketones Trace H (Negative) Urine Blood Negative (Negative) Urine Nitrite Positive A (Negative) Urine Bilirubin 1+ H (Negative) Urine Urobilinogen Negative (Negative) Ur Leukocyte Esterase Trace H (Negative) Urine WBC (Auto) 1-5 (0-5) /hpf Urine RBC (Auto) 5-10 H (0-4) /hpf U Hyaline Cast (Auto) 0 (0-5) /lpf U Epithel Cells (Auto) 0-5 (0-5) /lpf Urine Bacteria (Auto) Negative (Negative) COVID-19 Eval [facility] SARS-CoV-2, RNA, NAAT NEGATIVE (NEGATIVE) Administered Medications Carbidopa/Levodopa (Carbidopa/Levodopa 25-250 1 Ea Tab) 1 tab PO QID [facility] Stop: 10/14/20 21:32 Last Admin: 09/15/20 10:05 Dose: 1 tab Documented by: [id number] Admin: 09/14/20 22:14 Dose: 1 tab Documented by: [id number] Entacapone (Entacapone 200 Mg Tab) 200 mg PO TID [facility] Stop: 10/14/20 21:32 Last Admin: 09/15/20 10:05 Dose: 200 mg Documented by: [id number] Admin: 09/14/20 22:14 Dose: 200 mg Documented by: [id number] Escitalopram Oxalate (Escitalopram Oxalate 10 Mg Tab) 10 mg PO QAM [facility] Stop: 10/15/20 08:59 Last Admin: 09/15/20 10:04 Dose: 10 mg Documented by: [id number] Lactated Ringer's (Lr) 1,000 mls @ 75 mls/hr IV .[id number] [facility] Stop: 09/16/20 08:14 Last Admin: 09/15/20 10:04 Dose: 75 mls/hr Documented by: [id number] Insulin Aspart (Insulin Aspart 100 Units/Ml 3 Ml Pen) 0 units SC ACHS [facility] Stop: 10/14/20 21:32 Last Admin: 09/15/20 08:42 Dose: Not Given Documented by: [id number] Cosigned by: [id number] Admin: 09/14/20 22:09 Dose: Not Given Documented by: [id number] Cosigned by: [id number] Lorazepam (Lorazepam 0.5 Mg Tab) 0.5 mg PO BID [facility] Stop: 10/14/20 21:32 Last Admin: 09/15/20 10:04 Dose: 0.5 mg Documented by: [id number] Admin: 09/14/20 22:14 Dose: 0.5 mg Documented by: [id number] Discontinued Medications Diltiazem HCl (Diltiazem Hcl 120 Mg Er Cap) 120 mg PO NOW STA Stop: 09/14/20 19:59 Last Admin: 09/14/20 20:45 Dose: 120 mg Documented by: [id number] Sodium Chloride (Nss) 500 mls @ 999 mls/hr IV .Q31M [facility] Stop: 09/14/20 17:30 Last Infusion: 09/14/20 19:01 Dose: 0 mls/hr Documented by: [id number] Admin: 09/14/20 18:29 Dose: 999 mls/hr Documented by: [id number] Lactated Ringer's (Lr) 1,000 mls @ 80 mls/hr IV .[id number] [facility] Stop: 09/15/20 08:13 Last Infusion: 09/15/20 10:12 Dose: 0 mls/hr Documented by: [id number] Admin: 09/14/20 20:45 Dose: 80 mls/hr Documented by: [id number] Ceftriaxone Sodium (Rocephin) 1,000 mg in 50 mls @ 100 mls/hr IV NOW STA Stop: 09/14/20 21:21 Last Infusion: 09/14/20 21:34 Dose: 100 mls/hr Documented by: [id number] Admin: 09/14/20 21:01 Dose: 100 mls/hr Documented by: [id number] Potassium Chloride (Potassium Chloride Crtab 20 Meq Tabcr) 20 meq PO ONE ONE Stop: 09/15/20 10:31 Last Admin: 09/15/20 10:46 Dose: 20 meq Documented by: [id number] Imaging Data Radiologist's Impression: Patient: NANCY RODRIGUEZ Admit Date: 09/14/20 MR#: [id number] Address1: [address] Acct ID:[id number] Address2: [place] [address] Date: 1945 [facility] Zip: [place] [address] Age: 75 Location: ED Sex: F Room/Bed: Att Phy: Diagnosis: FALL Callie Phy: Titi Baez DO Service Date: 09/14/20 Fam Phy: Interpreting Phy: Robert Restrepo Admit Phy: Ordering Phy: Gamal Marie MD cc: ~ XR chest inspiration/expiratio HISTORY: 75 years-old Female abn pcxr ro pneumothorax L acute shortness of breath COMPARISON: Chest radiograph of same day at 5:34 PM TECHNIQUE: Inspiration and expiration AP views of the chest FINDINGS: No pneumothorax, pleural effusion, airspace consolidation or overt pulmonary edema. The previously noted line overlying the left hemithorax with likely s econdary to a skin fold. Unchanged linear scarring/atelectasis of the left lung base with subcentimeter left midlung calcified granuloma. Degenerative changes of the shoulders and spine. IMPRESSION: 1. No acute process. 2. No pneumothorax. ACT 112: Negative or not required by law. The above report was generated using voice recognition software. It may contain grammatical, syntax or spelling errors. Electronically signed by: Abram Restrepo M.D. 09/14/2020 9:02 PM Dictated: 09/14/202100 Transcribed: 09/14/202100 Patient: NANCY RODRIGUEZ Admit Date: 09/14/20 MR#: [id number] Address1: [address] Acct ID:[id number] Address2: [place] [address] Date: 1945 [facility] Zip: [place] [address] Age: 75 Location: ED Sex: F Room/Bed: Att Phy: Diagnosis: FALL Callie Phy: Titi Baez DO Service Date: 09/14/20 Fam Phy: Interpreting Phy: Robert Restrepo Admit Phy: Ordering Phy: Kb Freeman DO cc: ~ XR humerus LT 2V, XR hand LT min 3V routine, XR elbow LT min 3V routine HISTORY: 75 years-old Female fall acute pain of the left upper extremity status post fall COMPARISON: None TECHNIQUE: 2 views of the left humerus, 3 views of the left elbow and 3 views of the left hand FINDINGS: HUMERUS: Osteoarthritis of the shoulder. No acute fracture or dislocation. ELBOW: Degenerative spurring of the elbow. No dislocation or appreciable joint effusion. Questioned cortical irregularity involves the anterior cortex of the radial neck. HAND: Moderate multifocal osteoarthritis. Numerous punctate radiodense foci project over the dorsal tissues of the third and fourth digits at the level of the proximal phalanges. Demineralized appearance of the bones. No acute fracture or dislocation. Soft tissue swelling at the level of the metatarsal-phalangeal joints. IMPRESSION: 1. No acute fracture or dislocation of the left humerus or left hand. 2. Questioned cortical irregularity involving the anterior cortex of the radial neck is suggestive of of an age-indeterminate fracture. Correlate with point tenderness. This could also be evaluated with follow-up radiographs in 7-10 days. 3. Numerous punctate radiodense foci project over the dorsal tissues of the proximal third and fourth fingers. ACT 112: Negative or not required by law. The above report was generated using voice recognition software. It may contain grammatical, syntax or spelling errors. Electronically signed by: Abram Restrepo M.D. 09/14/2020 6:11 PM Dictated: 09/14/201805 Transcribed: 09/14/201805 Patient: NANCY RODRIGUEZ Admit Date: 09/14/20 MR#: [id number] Address1: [address] [facility] Acct ID:[id number] Address2: [place] [address] Date: 1945 [facility] Zip: [place] [address] Age: 75 Location: ED Sex: F Room/Bed: Att Phy: Diagnosis: FALL Callie Phy: Titi Baez DO Service Date: 09/14/20 [facility] Phy: Interpreting Phy: Robert Restrepo Admit Phy: Ordering Phy: Kb Freeman DO cc: ~ XR hip LT 2V w pelvis HISTORY: 75 years-old Female fall acute pelvic pain status post fall COMPARISON: Pelvis radiograph 09/12/2020 TECHNIQUE: AP view the pelvis with 2 views of the left hip FINDINGS: Moderate osteoarthritis of the hips. No acute fracture or dislocation. Posterior interbody lia and screw fusion of the lumbar spine with bilateral iliac bolts. IMPRESSION: No acute fracture or dislocation. ACT 112: Negative or not required by law. The above report was generated using voice recognition software. It may contain grammatical, syntax or spelling errors. Electronically signed by: Abram Restrepo M.D. 09/14/2020 6:06 PM Dictated: 09/14/201803 Transcribed: 09/14/201803 Patient: NANCY RODRIGUEZ Admit Date: 09/14/20 MR#: [id number] Address1: [address] Acct ID:[id number] Address2: [facility] [address] Date: 1945 [facility] Zip: [place] [address] Age: 75 Location: ED Sex: F Room/Bed: Att Phy: Diagnosis: FALL Callie Phy: Titi Baez DO Service Date: 09/14/20 Fam Phy: Interpreting Phy: Robert Restrepo Admit Phy: Ordering Phy: Kb Freeman DO cc: ~ CT head/brain wo con CLINICAL HISTORY: 75 years-old Female with fall. Acute head injury status post fall TECHNIQUE: Multiple axial CT images of the head were obtained without contrast. A dose lowering technique was utilized adhering to the principles of ALARA. CT DOSE: 638.56 mGycm COMPARISON: Head CT 06/11/2017 FINDINGS: No acute intracranial hemorrhage, midline shift, intracranial mass, hydrocephalus, territorial ischemia or abnormal extra-axial collection. Age- related involutional changes. Mild white matter hypodensities suggest chronic microvascular ischemic disease. Motion degraded exam. Cerebral vascular calcifications. The calvarium is intact. Subcutaneous hematoma of the left forehead/frontal scalp measures up to 5.0 x 0.8 cm. The paranasal sinuses, mastoid air cells, and middle ear cavities are clear. IMPRESSION: 1. No acute intracranial abnormality or calvarial fracture. 2. Small hematoma of the left frontal scalp. ACT 112: Negative or not required by law. The above report was generated using voice recognition software. It may contain grammatical, syntax or spelling errors. Electronically signed by: Abram Restrepo M.D. 09/14/2020 5:24 PM Dictated: 09/14/201721 Transcribed: 09/14/201721 Patient: NANCY RODRIGUEZ Admit Date: 09/14/20 MR#: [id number] Address1: [address] Acct ID:[id number] Address2: [facility] [address] Date: 1945 [facility] Zip: [place] [id number] Age: 75 Location: ED Sex: F Room/Bed: Att Phy: Diagnosis: FALL Callie Phy: Titi Baez DO Service Date: 09/14/20 Fam Phy: Interpreting Phy: Robert Restrepo Admit Phy: Ordering Phy: Kb Freeman DO cc: ~ XR humerus LT 2V, XR hand LT min 3V routine, XR elbow LT min 3V routine HISTORY: 75 years-old Female fall acute pain of the left upper extremity status post fall COMPARISON: None TECHNIQUE: 2 views of the left humerus, 3 views of the left elbow and 3 views of the left hand FINDINGS: HUMERUS: Osteoarthritis of the shoulder. No acute fracture or dislocation. ELBOW: Degenerative spurring of the elbow. No dislocation or appreciable joint effusion. Questioned cortical irregularity involves the anterior cortex of the radial neck. HAND: Moderate multifocal osteoarthritis. Numerous punctate radiodense foci project over the dorsal tissues of the third and fourth digits at the level of the proximal phalanges. Demineralized appearance of the bones. No acute fracture or dislocation. Soft tissue swelling at the level of the metatarsal-phalangeal joints. IMPRESSION: 1. No acute fracture or dislocation of the left humerus or left hand. 2. Questioned cortical irregularity involving the anterior cortex of the radial neck is suggestive of of an age-indeterminate fracture. Correlate with point tenderness. This could also be evaluated with follow-up radiographs in 7-10 days. 3. Numerous punctate radiodense foci project over the dorsal tissues of the proximal third and fourth fingers. ACT 112: Negative or not required by law. The above report was generated using voice recognition software. It may contain grammatical, syntax or spelling errors. Electronically signed by: Abram Restrepo M.D. 09/14/2020 6:11 PM Dictated: 09/14/201805 Transcribed: 09/14/201805 Patient: NANCY RODRIGUEZ Admit Date: 09/14/20 MR#: [id number] Address1: [address] Acct ID:[id number] Address2: [place] [address] Date: 1945 [facility] Zip: [place] [id number] Age: 75 Location: ED Sex: F Room/Bed: Att Phy: Diagnosis: FALL Callie Phy: Titi Baez DO Service Date: 09/14/20 Fam Phy: Interpreting Phy: Robert Restrepo Admit Phy: Ordering Phy: Kb Freeman DO cc: ~ XR humerus LT 2V, XR hand LT min 3V routine, XR elbow LT min 3V routine HISTORY: 75 years-old Female fall acute pain of the left upper extremity status post fall COMPARISON: None TECHNIQUE: 2 views of the left humerus, 3 views of the left elbow and 3 views of the left hand FINDINGS: HUMERUS: Osteoarthritis of the shoulder. No acute fracture or dislocation. ELBOW: Degenerative spurring of the elbow. No dislocation or appreciable joint effusion. Questioned cortical irregularity involves the anterior cortex of the radial neck. HAND: Moderate multifocal osteoarthritis. Numerous punctate radiodense foci project over the dorsal tissues of the third and fourth digits at the level of the proximal phalanges. Demineralized appearance of the bones. No acute fracture or dislocation. Soft tissue swelling at the level of the metatarsal-phalangeal joints. IMPRESSION: 1. No acute fracture or dislocation of the left humerus or left hand. 2. Questioned cortical irregularity involving the anterior cortex of the radial neck is suggestive of of an age-indeterminate fracture. Correlate with point tenderness. This could also be evaluated with follow-up radiographs in 7-10 days. 3. Numerous punctate radiodense foci project over the dorsal tissues of the proximal third and fourth fingers. ACT 112: Negative or not required by law. The above report was generated using voice recognition software. It may contain grammatical, syntax or spelling errors. Electronically signed by: Abram Restrepo M.D. 09/14/2020 6:11 PM Dictated: 09/14/201805 Transcribed: 09/14/201805 Patient: NANCY RODRIGUEZ Admit Date: 09/14/20 MR#: [id number] Address1: [address] Acct ID:[id number] Address2: [place] [address] Date: 1945 [facility] Zip: [place] [address] Age: 75 Location: ED Sex: F Room/Bed: Att Phy: Diagnosis: FALL Callie Phy: Titi Baez DO Service Date: 09/14/20 Fam Phy: Interpreting Phy: Robert Restrepo Admit Phy: Ordering Phy: Kb Freeman DO cc: ~ XR chest 1V portable HISTORY: 75 years-old Female weakness acute weakness COMPARISON: Chest radiographs 05/20/2020 TECHNIQUE: Semierect portable AP view the chest FINDINGS: Cardiac silhouette is enlarged. Unchanged linear scarring/atelectasis of the left lung base with subcentimeter left midlung calcified granuloma. Linear line overlying the lateral left hemithorax. No pleural effusion, overt pulmonary edema or airspace consolidation typical for pneumonia. Bones appear grossly intact. IMPRESSION: 1. Linear line overlying the lateral left hemithorax is suggestive of a skin fold. Pneumothorax considered less likely. This could be confirmed with inspiration and expiration films. 2. Mild cardiomegaly. 3. Chronic findings as above. ACT 112: Negative or not required by law. The above report was generated using voice recognition software. It may contain grammatical, syntax or spelling errors. Electronically signed by: Abram Restrepo M.D. 09/14/2020 6:29 PM Dictated: 09/14/201826 Transcribed: 09/14/201826 Patient: NANCY RODRIGUEZ Admit Date: 09/14/20 MR#: [id number] Address1: [address] Acct ID:[id number] Address2: [place] [address] Date: 1945 [facility] Zip: [place] [address] Age: 75 Location: ED Sex: F Room/Bed: Att Phy: Diagnosis: FALL Callie Phy: Titi Baez DO Service Date: 09/14/20 Jose Phy: Interpreting Phy: Robert Restrepo Admit Phy: Ordering Phy: Kb Freeman, cc: ~ CT cervical spine wo con CT DOSE: 401.84 mGycm CLINICAL HISTORY: 75 years-old Female with fall. Acute head and neck injury status post fall COMPARISON: Head CT of same day, CT cervical spine 06/11/2017 TECHNIQUE: Multiple axial CT images of the cervical spine were obtained without contrast. A dose lowering technique was utilized adhering to the principles of ALARA. FINDINGS: Demineralized appearance of the bones. Moderate degeneration at C1-C2. Mild multilevel facet arthrosis. No acute fracture or subluxation. There is no pneumothorax. 4 mm solid nodule of the left lung apex, image 488 of series 102 is unchanged from comparison suggestive of benign etiology. There is no prevertebral edema. Calcified plaque of the carotid bulbs IMPRESSION: No acute fracture or subluxation. ACT 112: Negative or not required by law. The above report was generated using voice recognition software. It may contain grammatical, syntax or spelling errors. Electronically signed by: Abram Restrepo M.D. 09/14/2020 5:37 PM Dictated: 09/14/20 1733 Transcribed: 09/14/20 1733 Blood Pressure Blood Pressure Findings: Elevated blood pressure Blood Pressure Disposition: further management by hospitalist Discharge Plan Visit Data Chief Complaint: Fall Stated Complaint: FALL ED Provider: Kb Freeman Discharge Problem: Fall, Contusion of multiple sites, Rhabdomyolysis, Acute UTI (urinary tract infection) Patient Disposition: Admitted As Inpatient Discharge Instructions Interventions: ED Discharge Assessment Last Done: 09/14/20 21:10
[2020-09-14 17:18] LABS: Basophils # (auto) 0.02 K/uL (0-0.2); Basophils % (auto) 0.2 %; Hematocrit (blood only) 40.1 % (37-47); Hemoglobin 12.9 g/dL (12.0-16.0); Immature Granulocytes # (auto) 0.01 K/uL (0.00-0.02); Immature Granulocytes % (auto) 0.1 %; Lymphocytes # (auto) 0.76 K/uL (1.2-3.4); Lymphocytes % (auto) 7.1 %; Mean Corpuscular Hemoglobin 25.1 pg (25-34); Mean Corpuscular Hgb Conc 32.2 g/dL (32-36); Mean Corpuscular Volume 78.2 fL (80-100); Mean Platelet Volume 11.2 fL (7.4-10.4); Monocytes # (auto) 1.12 K/uL (0.11-0.59); Monocytes % (auto) 10.5 %; Neutrophils # (auto) 8.73 K/uL (1.4-6.5); Neutrophils % (auto) 82.1 %; Platelet Count 247 K/uL (130-400); RDW Coefficient of Variation 16.7 % (11.5-14.5); RDW Standard Deviation 48.3 fL (36.4-46.3); Red Blood Count 5.13 M/uL (4.2-5.4); White Blood Count 10.64 K/uL (4.8-10.8)
--- NOTE | 2020-09-14 17:26 | CT Scan Report ---
CT head/brain wo con CLINICAL HISTORY: 75 years-old Female with fall. Acute head injury status post fall TECHNIQUE: Multiple axial CT images of the head were obtained without contrast. A dose lowering tech nique was utilized adhering to the principles of ALARA. CT DOSE: 638.56 mGycm COMPARISON: Head CT 06/11/2017 FINDINGS: No acute intracranial hemorrhage, midline shift, intracranial mass, hydrocephalus, territorial ischem ia or abnormal extra-axial collection. Age-related involutional changes. Mild white matter hypodensit ies suggest chronic microvascular ischemic disease. Motion degraded exam. Cerebral vascular calcifica tions. The calvarium is intact. Subcutaneous hematoma of the left forehead/frontal scalp measures up to 5.0 x 0.8 cm. The paranasal sinuses, mastoid air cells, and middle ear cavities are clear. IMPRESSION: 1. No acute intracranial abnormality or calvarial fracture. 2. Small hematoma of the left frontal scalp. ACT 112: Negative or not required by law. The above report was generated using voice recognition software. It may contain grammatical, syntax o r spelling errors. Electronically signed by: Abram Restrepo M.D. 09/14/2020 5:24 PM
[2020-09-14 17:29] LABS: INR 1.9 (0.9-1.1); Partial Thromboplastin Ratio 1.2; Partial Thromboplastin Time 30.3 Seconds (21.0-31.0); Prothrombin Time 18.2 Seconds (9.0-12.0)
--- NOTE | 2020-09-14 17:38 | CT Scan Report ---
CT cervical spine wo con CT DOSE: 401.84 mGycm CLINICAL HISTORY: 75 years-old Female with fall. Acute head and neck injury status post fall COMPARISON: Head CT of same day, CT cervical spine 06/11/2017 TECHNIQUE: Multiple axial CT images of the cervical spine were obtained without contrast. A dose low ering technique was utilized adhering to the principles of ALARA. FINDINGS: Demineralized appearance of the bones. Moderate degeneration at C1-C2. Mild multilevel face t arthrosis. No acute fracture or subluxation. There is no pneumothorax. 4 mm solid nodule of the left lung apex, image 488 of series 102 is unchang ed from comparison suggestive of benign etiology. There is no prevertebral edema. Calcified plaque of the carotid bulbs IMPRESSION: No acute fracture or subluxation. ACT 112: Negative or not required by law. The above report was generated using voice recognition software. It may contain grammatical, syntax o r spelling errors. Electronically signed by: Abram Restrepo M.D. 09/14/2020 5:37 PM
[2020-09-14 17:40] LABS: Albumin Level 3.5 gm/dl (3.4-5.0); BUN Creatinine Ratio 22.6 (10-20); Calcium 9.6 mg/dl (8.5-10.1); Creatinine Clr Calc Pharmacy 42.8 ml/min; Est GFR (African American) 54.1; Est GFR (Non-African American) 46.7; Potassium 3.5 mmol/L (3.5-5.1)
[2020-09-14 17:57] LABS: Albumin Globulin Ratio 0.9 (0.9-2); Creatine Kinase MB 54.1 ng/ml (0.5-3.6); Globulin 3.8 gm/dl (2.5-4.0); Thyroid Stimulating Hormone 2.04 uIu/ml (0.300-4.500); Total Protein 7.3 gm/dl (6.4-8.2); Troponin I 0.019 ng/ml (0-0.045)
--- NOTE | 2020-09-14 18:07 | XRay Report ---
XR hip LT 2V w pelvis HISTORY: 75 years-old Female fall acute pelvic pain status post fall COMPARISON: Pelvis radiograph 09/12/2020 TECHNIQUE: AP view the pelvis with 2 views of the left hip FINDINGS: Moderate osteoarthritis of the hips. No acute fracture or dislocation. Posterior interbody lia and sc rew fusion of the lumbar spine with bilateral iliac bolts. IMPRESSION: No acute fracture or dislocation. ACT 112: Negative or not required by law. The above report was generated using voice recognition software. It may contain grammatical, syntax o r spelling errors. Electronically signed by: Abram Restrepo M.D. 09/14/2020 6:06 PM
--- NOTE | 2020-09-14 18:12 | XRay Report ---
XR humerus LT 2V, XR hand LT min 3V routine, XR elbow LT min 3V routine HISTORY: 75 years-old Female fall acute pain of the left upper extremity status post fall COMPARISON: None TECHNIQUE: 2 views of the left humerus, 3 views of the left elbow and 3 views of the left hand FINDINGS: HUMERUS: Osteoarthritis of the shoulder. No acute fracture or dislocation. ELBOW: Degenerative spurring of the elbow. No dislocation or appreciable joint effusion. Questioned cortical irregularity involves the anterior cortex of the radial neck. HAND: Moderate multifocal osteoarthritis. Numerous punctate radiodense foci project over the dorsal tissues of the third and fourth digits at the level of the proximal phalanges. Demineralized appearance of t he bones. No acute fracture or dislocation. Soft tissue swelling at the level of the metatarsal-phala ngeal joints. IMPRESSION: 1. No acute fracture or dislocation of the left humerus or left hand. 2. Questioned cortical irregularity involving the anterior cortex of the radial neck is suggestive of of an age-indeterminate fracture. Correlate with point tenderness. This could also be evaluated with follow-up radiographs in 7-10 days. 3. Numerous punctate radiodense foci project over the dorsal tissues of the proximal third and fourth fingers. ACT 112: Negative or not required by law. The above report was generated using voice recognition software. It may contain grammatical, syntax o r spelling errors. Electronically signed by: Abram Restrepo M.D. 09/14/2020 6:11 PM
[2020-09-14 18:25] LABS: Appearance Urine Clear (Clear); Bacteria Urine Automated Negative (Negative); Blood Urine Negative (Negative); Cast Urine Automated 0 /lpf (0-5); Color Urine Dark Yellow; Epithelial Cell Urine Auto 0-5 /lpf (0-5); Glucose Urine UA Negative (Negative); Ketones Urine Trace (Negative); Leukocyte Esterase Urine Trace (Negative); Nitrite Urine Positive (Negative); Protein Urine Trace (Negative); Specific Gravity Urine 1.025 (1.000-1.030); Urobilinogen Urine Negative (Negative)
--- NOTE | 2020-09-14 18:30 | XRay Report ---
XR chest 1V portable HISTORY: 75 years-old Female weakness acute weakness COMPARISON: Chest radiographs 05/20/2020 TECHNIQUE: Semierect portable AP view the chest FINDINGS: Cardiac silhouette is enlarged. Unchanged linear scarring/atelectasis of the left lung base with subc entimeter left midlung calcified granuloma. Linear line overlying the lateral left hemithorax. No ple ural effusion, overt pulmonary edema or airspace consolidation typical for pneumonia. Bones appear gr ossly intact. IMPRESSION: 1. Linear line overlying the lateral left hemithorax is suggestive of a skin fold. Pneumothorax consi dered less likely. This could be confirmed with inspiration and expiration films. 2. Mild cardiomegaly. 3. Chronic findings as above. ACT 112: Negative or not required by law. The above report was generated using voice recognition software. It may contain grammatical, syntax o r spelling errors. Electronically signed by: Abram Restrepo M.D. 09/14/2020 6:29 PM
[2020-09-14 18:36] LABS: Bilirubin Urine 1+ (Negative)
[2020-09-14] MEDS ORDERED: LACTATED RINGER'S 1,000 ML IV STA (19:44)
--- NOTE | 2020-09-14 19:58 | History & Physical Report ---
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 SCDs while Coumadin on hold if INR less than 2 Full code Patient requests for her brother to be updated of plan of care. Mr. Hirsch Jr Emilie. thru contact #[phone]. Text document was generated using [employer] voice recognition software. It may contain grammatical or spelling errors. Kindly contact undersigned for clarification of any documentation item in question. History of Present Illness Chief Complaint: Fall Primary Care Provider: Titi Baez DO History obtained from patient and records. Medical history significant for PAF on Coumadin, hypertension, hyperlipidemia, Parkinson's disease, DM 2 diet-controlled. Last confinement May 2020 for closed sacral fracture status post surgery. Recent ER visit 2 days ago for a fall at home and inability to get up. Patient discharged back home from the ER. Patient fell again last night at her home while ambulating. Achy left upper extremity and left hip pain with head trauma. No chest pain, no S OB, no LOC. Patient had trouble getting up. No fever, no chills, no dysuria symptoms. Patient found by her brother at home today. At the ER, patient received IV ceftriaxone for possible UTI. 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 Allergies Allergy/AdvReac Type Severity Reaction Status Date / Time pramipexole AdvReac Unknown hallucinati Verified 06/08/20 21:04 ons Home Medications Medication Instructions Recorded Confirmed Type atorvastatin [Lipitor] 80 mg PO QPM 01/21/20 09/14/20 History calcitriol 0.5 mcg PO DAILY@1200 01/21/20 09/14/20 History carbidopa-levodopa [Sinemet] 1 tab PO QID 01/21/20 09/14/20 History cholecalciferol (vitamin D3) 25 mcg PO BID 01/21/20 09/14/20 History [Vitamin D3] diltiazem HCl [Cardizem] 120 mg PO DAILY@1200 01/21/20 09/14/20 History entacapone [Comtan] 200 mg PO TID 01/21/20 09/14/20 History escitalopram oxalate [Lexapro] 10 mg PO QAM 01/21/20 09/14/20 History lorazepam [Ativan] 0.5 mg PO BID 01/21/20 09/14/20 History raloxifene 60 mg PO DAILY@1200 01/21/20 09/14/20 History valsartan [Diovan] 80 mg PO DAILY@1200 01/21/20 09/14/20 History warfarin See Rx Instructions .ROUTE .COMPLEX 06/13/20 09/14/20 History docusate sodium [Col-Rite] 200 mg PO DAILY PRN 09/12/20 09/14/20 History polyethylene glycol 3350 [Miralax] 17 g PO BID PRN 09/14/20 09/14/20 History Past Med/Surg History Medical History (Updated 09/14/20 @ 21:25 by Gamal Marie MD) Anxiety Atrial fibrillation paroxysmal on warfarin CKD (chronic kidney disease) Depression DM type 2 (diabetes mellitus, type 2) diet controlled Hyperlipidemia Hypertension Obesity Osteoarthritis Parkinsons disease Urinary incontinence Vertigo Surgical History History of cholecystectomy lap cholecystectomy: 01/26/20: Grade 1 view, MAC#3, ETT 7 at [facility] History of incision and drainage shoulder> PT UNSURE OF DETAILS Hx of breast biopsy LEFT Hx of colonoscopy Family History Mother Atrial fibrillation Father Myocardial infarction Social History Smoking Status: Never smoker Second Hand Exposure: No; Hx Alcohol Use: No Hx Substance Use: No Preferred Language: Indian Communication Ability: Effective Marine Insulator Required: No Beliefs That Will Affect Care: None marital status: / Current Living Situation: Family Current Living Situation Comment: Lives in a house Feels Safe at Home: Yes Assistive Devices: Walker Review of Systems Review of Systems: As per HPI, all 10 systems reviewed, all other ROS negative Physical Exam Physical Exam: GENERAL: Slightly uncomfortable, masklike facies, no respiratory distress, obese SKIN: Normal color, warm HEENT: Bespectacled, pink palpebral conjunctivae, no ptosis, dry buccal mucosa NECK : Supple, no tenderness CHEST : CTA, no tenderness HEART : Irregular, systolic murmur ABDOMEN: Some distention, nontender EXTREMITIES : Minimal LE swelling, no LE tenderness, no other conspicuous deformities noted NEUROLOGIC : Coherent, no facial asymmetry, gait and stance not assessed Results & Data Results & Data ([facility]) Vital Signs (Past 12 Hours) Vital Signs Temp Pulse Pulse Resp BP BP Pulse Ox 09/14/20 19:18 98 H 18 152/85 H 98 09/14/20 18:30 87 20 142/78 H 97 09/14/20 18:00 88 29 H 156/85 H 97 09/14/20 17:09 94 H 21 97 09/14/20 16:42 37.0 C 95 H 21 156/85 H 97 09/14/20 16:28 37.0 C 94 H 21 156/85 H 97 Laboratory Results Laboratory Results WBC 10.64 K/uL (4.8-10.8) 09/14/20 16:47 RBC 5.13 M/uL (4.2-5.4) 09/14/20 16:47 Hgb 12.9 g/dL (12.0-16.0) 09/14/20 16:47 Hct 40.1 % (37-47) 09/14/20 16:47 MCV 78.2 fL (80-100) L 09/14/20 16:47 MCH 25.1 pg (25-34) 09/14/20 16:47 MCHC 32.2 g/dL (32-36) 09/14/20 16:47 RDW Std Deviation 48.3 fL (36.4-46.3) H 09/14/20 16:47 RDW Coeff of Ratna 16.7 % (11.5-14.5) H 09/14/20 16:47 Plt Count 247 K/uL (130-400) 09/14/20 16:47 MPV 11.2 fL (7.4-10.4) H 09/14/20 16:47 Immature Gran % (Auto) 0.1 % 09/14/20 16:47 Neut % (Auto) 82.1 % 09/14/20 16:47 Lymph % (Auto) 7.1 % 09/14/20 16:47 Towns % (Auto) 10.5 % 09/14/20 16:47 Eos % (Auto) 0.0 % 09/14/20 16:47 Baso % (Auto) 0.2 % 09/14/20 16:47 Neut # (Auto) 8.73 K/uL (1.4-6.5) H 09/14/20 16:47 Lymph # (Auto) 0.76 K/uL (1.2-3.4) L 09/14/20 16:47 Towns # (Auto) 1.12 K/uL (0.11-0.59) H 09/14/20 16:47 Eos # (Auto) 0.00 K/uL (0-0.5) 09/14/20 16:47 Baso # (Auto) 0.02 K/uL (0-0.2) 09/14/20 16:47 Immature Gran # (Auto) 0.01 K/uL (0.00-0.02) 09/14/20 16:47 PT 18.2 Seconds (9.0-12.0) H 09/14/20 16:47 INR 1.9 (0.9-1.1) H 09/14/20 16:47 APTT 30.3 Seconds (21.0-31.0) 09/14/20 16:47 PTT Ratio 1.2 09/14/20 16:47 Sodium 142 mmol/L (136-145) 09/14/20 16:47 Potassium 3.5 mmol/L (3.5-5.1) 09/14/20 16:47 Chloride 109 mmol/L (98-107) H 09/14/20 16:47 Carbon Dioxide 26 mmol/L (21-32) 09/14/20 16:47 Anion Gap 7.0 (3-11) 09/14/20 16:47 BUN 26 mg/dl (7-18) H 09/14/20 16:47 Creatinine 1.16 mg/dl (0.6-1.2) 09/14/20 16:47 Est Cr Clr Drug Dosing 42.8 ml/min 09/14/20 16:47 Est GFR ( Amer) 54.1 09/14/20 16:47 Est GFR (Non-Af Amer) 46.7 09/14/20 16:47 BUN/Creatinine Ratio 22.6 (10-20) H 09/14/20 16:47 Glucose 104 mg/dl (70-99) H 09/14/20 16:47 Calcium 9.6 mg/dl (8.5-10.1) 09/14/20 16:47 Magnesium 2.0 mg/dl (1.8-2.4) 09/14/20 16:47 Total Bilirubin 1.0 mg/dl (0.2-1) 09/14/20 16:47 AST 129 U/L (15-37) H 09/14/20 16:47 ALT 30 U/L (12-78) 09/14/20 16:47 Alkaline Phosphatase 87 U/L (45-117) 09/14/20 16:47 Total Creatine Kinase 3563 U/L (26-192) H 09/14/20 16:47 CK-MB (CK-2) 54.1 ng/ml (0.5-3.6) H 09/14/20 16:47 CK/CKMB % Calc 1.5 (0-3.0) 09/14/20 16:47 Troponin I 0.019 ng/ml (0-0.045) 09/14/20 16:47 Total Protein 7.3 gm/dl (6.4-8.2) 09/14/20 16:47 Albumin 3.5 gm/dl (3.4-5.0) 09/14/20 16:47 Globulin 3.8 gm/dl (2.5-4.0) 09/14/20 16:47 Albumin/Globulin Ratio 0.9 (0.9-2) 09/14/20 16:47 TSH 2.040 uIu/ml (0.300-4.500) 09/14/20 16:47 Urine Color Dark Yellow 09/14/20 18:00 Urine Appearance Clear (Clear) 09/14/20 18:00 Urine pH 5.0 (4.5-7.5) 09/14/20 18:00 Ur Specific [place] 1.025 (1.000-1.030) 09/14/20 18:00 Urine Protein Trace (Negative) H 09/14/20 18:00 Urine Glucose (UA) Negative (Negative) 09/14/20 18:00 Urine Ketones Trace (Negative) H 09/14/20 18:00 Urine Blood Negative (Negative) 09/14/20 18:00 Urine Nitrite Positive (Negative) A 09/14/20 18:00 Urine Bilirubin 1+ (Negative) H 09/14/20 18:00 Urine Urobilinogen Negative (Negative) 09/14/20 18:00 Ur Leukocyte Esterase Trace (Negative) H 09/14/20 18:00 Urine WBC (Auto) 1-5 /hpf (0-5) 09/14/20 18:00 Urine RBC (Auto) 5-10 /hpf (0-4) H 09/14/20 18:00 U Hyaline Cast (Auto) 0 /lpf (0-5) 09/14/20 18:00 U Epithel Cells (Auto) 0-5 /lpf (0-5) 09/14/20 18:00 Urine Bacteria (Auto) Negative (Negative) 09/14/20 18:00 COVID-19 Eval Order Covid19 [facility]Now [facility] 09/14/20 19:10 SARS-CoV-2, RNA, NAAT NEGATIVE (NEGATIVE) 09/14/20 19:[address] head: 1. No acute intracranial abnormality or calvarial fracture. 2. Small hematoma of the left frontal scalp. CT cervical spine: No acute fracture or subluxation. Left hip x-ray: No acute fracture or dislocation. Left humerus, L elbow, L hand x-ray: 1. No acute fracture or dislocation of the left humerus or left hand. 2. Questioned cortical irregularity involving the anterior cortex of the radial neck is suggestive of of an age-indeterminate fracture. Correlate with point tenderness. This could also be evaluated with follow-up radiographs in 7-10 days. 3. Numerous punctate radiodense foci project over the dorsal tissues of the proximal third and fourth fingers. Chest x-ray : 1. No acute process. 2. No pneumothorax. EKG as per my interpretation : Rate 90, A. fib, normal axis, no ischemia
[2020-09-14] MEDS ORDERED: cefTRIAXone SODIUM 1,000 MG/50 ML BAG IV STA (20:52)
--- NOTE | 2020-09-14 21:03 | XRay Report ---
XR chest inspiration/expiratio HISTORY: 75 years-old Female abn pcxr ro pneumothorax L acute shortness of breath COMPARISON: Chest radiograph of same day at 5:34 PM TECHNIQUE: Inspiration and expiration AP views of the chest FINDINGS: No pneumothorax, pleural effusion, airspace consolidation or overt pulmonary edema. The previously no darlene line overlying the left hemithorax with likely secondary to a skin fold. Unchanged linear scarrin g/atelectasis of the left lung base with subcentimeter left midlung calcified granuloma. Degenerative changes of the shoulders and spine. IMPRESSION: 1. No acute process. 2. No pneumothorax. ACT 112: Negative or not required by law. The above report was generated using voice recognition software. It may contain grammatical, syntax o r spelling errors. Electronically signed by: Abram Restrepo M.D. 09/14/2020 9:02 PM
[2020-09-14] MEDS ORDERED: CARBOHYDRATES FOR HYPOGLYCEMIA PO PRN (21:33)
[2020-09-14] MEDS ORDERED: GLUCAGON FOR INJ 1 MG VIAL SQ PRN (21:33)
[2020-09-14] MEDS ORDERED: GLUCOSE 10 TABS/TUBE PO PRN (21:33)
[2020-09-14] MEDS ORDERED: DEXTROSE 50% 50 ML SYRINGE IV PRN (21:33)
[2020-09-14] MEDS ORDERED: traMADol HCL 50 MG TABLET PO PRN (21:33)
[2020-09-14] MEDS ORDERED: PROMETHAZINE HCL 12.5 MG in SODIUM CHLORIDE 0.9% 50 ML IV PRN (21:33)
[2020-09-14] MEDS ORDERED: DOCUSATE SODIUM 100 MG CAP PO PRN (21:33)
[2020-09-14] MEDS ORDERED: GLUCOSE 40% GEL 15 GM TUBE PO PRN (21:33)
[2020-09-14] MEDS ORDERED: POLYETHYLENE (MIRALAX) 17 GM PACK PO PRN (21:33)
[2020-09-14] MEDS: INSULIN ASPART 100 UNITS/ML 3 ML PEN SC SCH (22:09)
[2020-09-14] MEDS: CARBIDOPA/LEVODOPA 25-250 1 EA TAB PO SCH (22:14)
[2020-09-14] MEDS: LORazepam 0.5 MG TAB PO SCH (22:14)
[2020-09-14] MEDS: ENTACAPONE 200 MG TAB PO SCH (22:14)
[2020-09-15 06:38] LABS: Basophils # (auto) 0.02 K/uL (0-0.2); Basophils % (auto) 0.2 %; Eosinophils # (auto) 0.01 K/uL (0-0.5); Eosinophils % (auto) 0.1 %; Hematocrit (blood only) 34.2 % (37-47); Hemoglobin 10.7 g/dL (12.0-16.0); Immature Granulocytes # (auto) 0.01 K/uL (0.00-0.02); Immature Granulocytes % (auto) 0.1 %; Lymphocytes # (auto) 1.12 K/uL (1.2-3.4); Lymphocytes % (auto) 13.5 %; Mean Corpuscular Hemoglobin 24.7 pg (25-34); Mean Corpuscular Hgb Conc 31.3 g/dL (32-36); Monocytes # (auto) 1.05 K/uL (0.11-0.59); Monocytes % (auto) 12.7 %; Neutrophils # (auto) 6.06 K/uL (1.4-6.5); Neutrophils % (auto) 73.4 %; Platelet Count 194 K/uL (130-400); RDW Coefficient of Variation 16.8 % (11.5-14.5); RDW Standard Deviation 48.6 fL (36.4-46.3); Red Blood Count 4.33 M/uL (4.2-5.4); White Blood Count 8.27 K/uL (4.8-10.8)
[2020-09-15 06:43] LABS: INR 2.1 (0.9-1.1); Prothrombin Time 20.2 Seconds (9.0-12.0)
[2020-09-15 07:08] LABS: Albumin Level 2.5 gm/dl (3.4-5.0); BUN Creatinine Ratio 26.7 (10-20); Calcium 8.4 mg/dl (8.5-10.1); Creatinine Clr Calc Pharmacy 52.7 ml/min; Est GFR (African American) 68.9; Est GFR (Non-African American) 59.4; Potassium 3.4 mmol/L (3.5-5.1)
[2020-09-15 07:33] LABS: Albumin Globulin Ratio 0.8 (0.9-2); Bilirubin,Total 0.8 mg/dl (0.2-1); Globulin 3.1 gm/dl (2.5-4.0); Total Protein 5.6 gm/dl (6.4-8.2)
[2020-09-15] MEDS: INSULIN ASPART 100 UNITS/ML 3 ML PEN SC SCH ×4 (08:42→21:26)
[2020-09-15] MEDS: LORazepam 0.5 MG TAB PO SCH ×2 (10:04→20:51)
[2020-09-15] MEDS: ESCITALOPRAM OXALATE 10 MG TAB PO SCH (10:04)
[2020-09-15] MEDS: LACTATED RINGER'S 1,000 ML IV SCH ×2 (10:04→23:28)
[2020-09-15] MEDS: CARBIDOPA/LEVODOPA 25-250 1 EA TAB PO SCH ×4 (10:05→20:49)
[2020-09-15] MEDS: ENTACAPONE 200 MG TAB PO SCH ×3 (10:05→20:48)
[2020-09-15] MEDS ORDERED: POTASSIUM CHLORIDE CRTAB 20 MEQ TABCR PO ONE (10:30)
[2020-09-15] MEDS: VALSARTAN 80 MG TAB PO SCH (12:37)
[2020-09-15] MEDS: dilTIAZem HCL 120 MG CAPCR PO SCH (12:37)
--- NOTE | 2020-09-15 16:15 | Hospitalist Progress Note ---
Date of Service September 15, 2020 Assessment & Plan (1) Fall from ground level: Ambulatory dysfunction with recurrent falls Present on admission with mechanical fall Multiple imaging done showed no fracture Continue physical and occupational therapy Refusing inpatient rehab Fall precaution (2) Rhabdomyolysis: Possible traumatic rhabdomyolysis Due to recurrent fall and inability to get up CK level on admission 3563 Received IVF, now CK 1935 today Continue IVF Will monitor CK level Hypokalemia Potassium 3.4 today K replaced Continue monitor BMP Scalp hematoma Due to the fall CT head showed no acute intracranial abnormality or calvarial fracture. Small hematoma of the left frontal scalp. Pt is on coumadin, will hold coumadin for now hgb dropped from 12 to 10 (mostly dilutional ) Will hold coumadin today Afib Rate is control with cardizem Will hold coumadin for now due to scalp hematoma, INR 2.1 today Might not be a good candidate for anticoagulant if pt continues to have fall risk Abnormal UA UA positive for leukocytes, nitrite received IV Rocephin on admission Continue to hold additional abx Will follow blood cx DM type 2 Most recent hab1c 5.9 Continue monitor BS HTN Continue BP med stable DVT prophylaxis. SCDs while Coumadin on hold if INR less than Full code Patient requests for her brother to be updated of plan of care. Mr. Hirsch Jr Emilie. thru contact #[phone]. Admission and Anticipated Discharge Date Admission Date: September 14, 2020 Subjective Pt was seen and examined for follow up fall Sitting in chair with no distress eating lunch Pt said that she feels ok She said that she feels sore when moving her body and her neck She is not interested to go to rehab because she has been to rehab in the past Denies any chest pain, palpitation, dizziness and SOB Physical Exam Physical Exam: General- No acute distress Head- +scalp tenderness Eyes- PERRL, EOMI, ENT- oropharynx clear Neck- supple, no JVD Lungs- clear to auscultation Heart- irregular Abdomen- normal bowel sounds, soft, nontender Extremities- no calf tenderness Neuro- alert, oriented x 3; PERRL, EOMI; no facial palsy; no dysarthria Skin- warm & dry Results & Data Results & Data ([facility]) Vital Signs (Past 12 Hours) Vital Signs Temp Pulse Pulse Resp BP Pulse Ox 09/15/20 16:00 80 09/15/20 15:54 36.8 C 73 20 137/81 97 09/15/20 11:28 36.6 C 87 16 125/73 98 09/15/20 08:00 69 09/15/20 06:35 36.5 C 74 16 132/75 95
--- NOTE | 2020-09-15 16:46 | Electrocardiogram Report ---
Test Reason : Blood Pressure : / mmHG Vent. Rate : 092 BPM Atrial Rate : 085 BPM P-R Int : 000 ms QRS Dur : 074 ms QT Int : 368 ms P-R-T Axes : 000 021 006 degrees QTc Int : 455 ms Atrial fibrillation Poor R wave progression, consider anterior CT vs. lead placement vs. LVH Abnormal ECG Confirmed by Aydin Phillips ([id number]) on 09/15/2020 4:46:01 PM Referred By: REFERRED SELF Confirmed By:Ranjan Phillips
[2020-09-16] MEDS: INSULIN ASPART 100 UNITS/ML 3 ML PEN SC SCH ×4 (08:57→20:53)
[2020-09-16] MEDS: ESCITALOPRAM OXALATE 10 MG TAB PO SCH (09:01)
[2020-09-16] MEDS: ENTACAPONE 200 MG TAB PO SCH ×3 (09:01→20:46)
[2020-09-16] MEDS: CARBIDOPA/LEVODOPA 25-250 1 EA TAB PO SCH ×4 (09:01→20:47)
[2020-09-16] MEDS: LORazepam 0.5 MG TAB PO SCH ×2 (09:04→20:46)
[2020-09-16 10:45] LABS: Hematocrit (blood only) 33.9 % (37-47); Hemoglobin 10.6 g/dL (12.0-16.0); Mean Corpuscular Hemoglobin 24.8 pg (25-34); Mean Corpuscular Hgb Conc 31.3 g/dL (32-36); Mean Corpuscular Volume 79.4 fL (80-100); Mean Platelet Volume 10.6 fL (7.4-10.4); Platelet Count 177 K/uL (130-400); RDW Standard Deviation 49.4 fL (36.4-46.3); Red Blood Count 4.27 M/uL (4.2-5.4); White Blood Count 6.27 K/uL (4.8-10.8)
[2020-09-16 10:56] LABS: INR 1.6 (0.9-1.1); Prothrombin Time 15.8 Seconds (9.0-12.0)
[2020-09-16 11:17] LABS: BUN Creatinine Ratio 22.3 (10-20); Calcium 8.3 mg/dl (8.5-10.1); Creatinine Clr Calc Pharmacy 49.4 ml/min; Est GFR (Non-African American) 55.2; Potassium 3.5 mmol/L (3.5-5.1)
--- NOTE | 2020-09-16 13:56 | Hospitalist Progress Note ---
Date of Service September 16, 2020 Assessment & Plan (1) Fall from ground level: Ambulatory dysfunction with recurrent falls Present on admission with mechanical fall Multiple imaging done showed no fracture Continue physical and occupational therapy Refusing inpatient rehab Fall precaution (2) Rhabdomyolysis: Possible traumatic rhabdomyolysis Due to recurrent fall and inability to get up CK level on admission 3563 Receiving gentle IVF CK trending down from 1935 to 988 today Continue monitor CK level Will monitor for sign of volume overload Hypokalemia Potassium 3.5 today Continue monitor BMP Scalp hematoma Due to the fall CT head showed no acute intracranial abnormality or calvarial fracture. Small hematoma of the left frontal scalp. Pt is on coumadin, will hold coumadin for now hgb dropped from 12 to 10 (mostly dilutional ) Will resume coumadin today since hgb stable Afib Rate is control with cardizem Will hold coumadin for now due to scalp hematoma, INR 1.6 today Might not be a good candidate for anticoagulant if pt continues to have fall risk Will resume coumadin Abnormal UA UA positive for leukocytes, nitrite received IV Rocephin on admission Urine cx showed alpha strep not enterococcus with low count Asymptomatic Continue to hold additional abx DM type 2 Most recent hab1c 5.9 Continue monitor BS HTN Continue BP med stable DVT prophylaxis. SCDs and coumadin Full code Patient requests for her brother to be updated of plan of care. Mr. Hirsch Jr Emilie. thru contact #[phone]. Admission and Anticipated Discharge Date Admission Date: September 14, 2020 Subjective Pt was seen and examined for follow up fall Lying in bed with no distress resting She said that her pain is better today She said that she walked with therapy today She continues to refuse any inpatient therapy Denies any chest pain, palpitation, dizziness and SOB Physical Exam Physical Exam: General- No acute distress Head- +scalp tenderness Eyes- PERRL, EOMI, ENT- oropharynx clear Neck- supple, no JVD Lungs- clear to auscultation Heart- irregular, +murmur Abdomen- normal bowel sounds, soft, nontender Extremities- no calf tenderness Neuro- alert, oriented x 3; PERRL, EOMI; no facial palsy; no dysarthria Skin- warm & dry Results & Data Results & Data ([facility]) Vital Signs (Past 12 Hours) Vital Signs Temp Pulse Resp BP Pulse Ox 09/16/20 11:15 36.6 C 71 16 145/80 H 95 09/16/20 06:38 36.4 C L 66 18 145/89 H 96 09/16/20 03:17 36.9 C 74 16 137/84 95
[2020-09-16] MEDS: VALSARTAN 80 MG TAB PO SCH (14:13)
[2020-09-16] MEDS: dilTIAZem HCL 120 MG CAPCR PO SCH (14:13)
[2020-09-16] MEDS: WARFARIN SOD 3 MG TAB PO SCH (17:52)
[2020-09-17] MEDS: ACETAMINOPHEN 325 MG TAB PO PRN (00:42)
[2020-09-17 07:40] LABS: INR 1.5 (0.9-1.1); Prothrombin Time 14.6 Seconds (9.0-12.0)
[2020-09-17 07:54] LABS: BUN Creatinine Ratio 21.8 (10-20); Calcium 8.3 mg/dl (8.5-10.1); Creatinine Clr Calc Pharmacy 58.8 ml/min; Est GFR (African American) 76.6; Est GFR (Non-African American) 66.1; Potassium 3.6 mmol/L (3.5-5.1)
[2020-09-17] MEDS: INSULIN ASPART 100 UNITS/ML 3 ML PEN SC SCH ×4 (08:33→21:11)
[2020-09-17] MEDS: ENTACAPONE 200 MG TAB PO SCH ×3 (08:37→21:05)
[2020-09-17] MEDS: CARBIDOPA/LEVODOPA 25-250 1 EA TAB PO SCH ×4 (08:37→21:05)
[2020-09-17] MEDS: LORazepam 0.5 MG TAB PO SCH ×2 (08:37→21:04)
[2020-09-17] MEDS: ESCITALOPRAM OXALATE 10 MG TAB PO SCH (08:37)
[2020-09-17] MEDS: VALSARTAN 80 MG TAB PO SCH (12:14)
[2020-09-17] MEDS: dilTIAZem HCL 120 MG CAPCR PO SCH (12:14)
--- NOTE | 2020-09-17 16:41 | Hospitalist Progress Note ---
Date of Service September 17, 2020 Assessment & Plan (1) Fall from ground level: Ambulatory dysfunction with recurrent falls Present on admission with mechanical fall Multiple imaging done showed no fracture Continue physical and occupational therapy Refusing inpatient rehab Fall precaution (2) Rhabdomyolysis: Possible traumatic rhabdomyolysis Due to recurrent fall and inability to get up CK level on admission 3563 Receiving gentle IVF CK trending down from 1935 to 988--->624 today Continue monitor CK level Will monitor for sign of volume overload Hypokalemia Potassium 3.6 today Continue monitor BMP Scalp hematoma Due to the fall CT head showed no acute intracranial abnormality or calvarial fracture. Small hematoma of the left frontal scalp. Pt is on coumadin, will hold coumadin for now hgb dropped from 12 to 10 (mostly dilutional ) Will resume coumadin today since hgb stable Afib Rate is control with cardizem Will hold coumadin for now due to scalp hematoma, INR 1.5 today Might not be a good candidate for anticoagulant if pt continues to have fall risk Coumadin resumed Abnormal UA UA positive for leukocytes, nitrite received IV Rocephin on admission Urine cx showed alpha strep not enterococcus with low count Asymptomatic Continue to hold additional abx DM type 2 Most recent hab1c 5.9 Continue monitor BS HTN Continue BP med stable DVT prophylaxis. SCDs and coumadin Full code Patient requests for her brother to be updated of plan of care. Mr. Torrey GrimmJr amy. thru contact #[phone]. Admission and Anticipated Discharge Date Admission Date: September 14, 2020 Subjective Pt was seen and examined for follow up fall Sitting in chair with no distress She said that her pain is better today She continues to refuse any inpatient therapy Denies any chest pain, palpitation, dizziness and SOB Physical Exam Physical Exam: General- No acute distress Head- +scalp tenderness Eyes- PERRL, EOMI, ENT- oropharynx clear Neck- supple, no JVD Lungs- clear to auscultation Heart- irregular, +murmur Abdomen- normal bowel sounds, soft, nontender Extremities- no calf tenderness Neuro- alert, oriented x 3; PERRL, EOMI; no facial palsy; no dysarthria Skin- warm & dry Results & Data Results & Data ([facility]) Vital Signs (Past 12 Hours) Vital Signs Temp Pulse Pulse Pulse Resp BP BP 09/17/20 15:49 36.4 C L 72 18 152/89 H 09/17/20 12:06 72 09/17/20 11:07 36.5 C 56 L 20 166/80 H 09/17/20 08:00 53 L 09/17/20 07:13 36.4 C L 58 L 18 169/86 H Pulse Ox 09/17/20 15:49 95 09/17/20 12:06 09/17/20 11:07 95 09/17/20 08:00 09/17/20 07:13 94
[2020-09-17] MEDS: WARFARIN SOD 3 MG TAB PO SCH (17:10)
[2020-09-17] MEDS: MICONAZOLE NITRATE POWDER 43 GM EXT PRN (21:03)
[2020-09-18 06:42] LABS: INR 1.5 (0.9-1.1); Prothrombin Time 14.5 Seconds (9.0-12.0)
[2020-09-18 07:05] LABS: Calcium 8.6 mg/dl (8.5-10.1); Creatinine Clr Calc Pharmacy 56.5 ml/min; Est GFR (African American) 73.5; Est GFR (Non-African American) 63.4; Potassium 3.6 mmol/L (3.5-5.1)
[2020-09-18] MEDS: INSULIN ASPART 100 UNITS/ML 3 ML PEN SC SCH ×4 (08:39→20:33)
[2020-09-18] MEDS: HEPARIN SOD 5,000 UNIT/0.5 ML VIAL SQ SCH ×2 (08:40→20:33)
[2020-09-18] MEDS: CARBIDOPA/LEVODOPA 25-250 1 EA TAB PO SCH ×4 (08:43→20:37)
[2020-09-18] MEDS: ENTACAPONE 200 MG TAB PO SCH ×3 (08:43→20:37)
[2020-09-18] MEDS: ESCITALOPRAM OXALATE 10 MG TAB PO SCH (08:43)
[2020-09-18] MEDS: LORazepam 0.5 MG TAB PO SCH ×2 (08:43→20:37)
[2020-09-18] MEDS: dilTIAZem HCL 120 MG CAPCR PO SCH (13:17)
[2020-09-18] MEDS: VALSARTAN 80 MG TAB PO SCH (13:17)
--- NOTE | 2020-09-18 13:49 | Cardiology Consultation ---
Date of Consultation September 18, 2020 Assessment & Plan (1) Permanent atrial fibrillation: 75-year-old female with history of Parkinson's presents after mechanical fall, with prolonged downtime, and rhabdomyolysis, presenting CPK level on 09/14/2020 was 3563 units/L, which has trended down to 348 units/L as of today 09/18/2020. Troponin was negative x1 as drawn on 09/14/2020. No symptoms suggestive of angina were reported. Renal function stable. Case discussed with Dr. Ibarra. Patient has chronic (permanent) atrial fibrillation, and is maintained on diltiazem CD 120 mg daily. I think we have a noted explanation for her recent falls, that appear to be mechanical and not due to symptomatic bradycardia. She does endorse occasional dizziness, but at present, I do not think there is sufficient evidence to label her as having "tachycardia bradycardia syndrome ". At present, I would recommend continuing her outpatient dose of diltiazem 120 mg daily. The bradycardia episodes noted this morning are very brief, and while she was apparently sleeping. No prolonged bradycardia or pauses noted. History of Present Illness Attending Physician: Clara Ibarra MD History of Present Illness Gabrielle Liao is a 75-year-old female seen in cardiology consultation per the request of Dr. Ibarra for evaluation of chronic atrial fibrillation and intermittent bradycardia. The patient's primary station detective is Dr. Garcia of our practice. The patient has a history of chronic atrial fibrillation, hypertension, dyslipidemia, Parkinson's syndrome. She presents been hospitalized for a fall that occurred on 09/14/2020 per her recollection. She describes that she was moving a quilt and supporting herself by holding on furniture, as she transitioned back to her wheelchair, she lost her balance and fell down with subsequent prolonged downtime. She had a recent fall prior to that few days before. She denies any recent history suggestive of loss of consciousness or syncope. Since presentation telemetry has revealed atrial fibrillation for the most part in the 70s, however occasionally she has had brief episodes of bradycardia, most notably this morning perhaps while sleeping at just after 1030 with transient ventricular rates in the 30s. No uyen pauses, greatest R to R interval per my measurement is 2.2 seconds. No ventricular arrhythmias noted. Allergies Allergy/AdvReac Type Severity Reaction Status Date / Time pramipexole AdvReac Unknown hallucinati Verified 06/08/20 21:04 ons Home Medications Medication Instructions Recorded Confirmed Type atorvastatin [Lipitor] 80 mg PO QPM 01/21/20 09/14/20 History calcitriol 0.5 mcg PO DAILY@1200 01/21/20 09/14/20 History carbidopa-levodopa [Sinemet] 1 tab PO QID 01/21/20 09/14/20 History cholecalciferol (vitamin D3) 25 mcg PO BID 01/21/20 09/14/20 History [Vitamin D3] diltiazem HCl [Cardizem] 120 mg PO DAILY@1200 01/21/20 09/14/20 History entacapone [Comtan] 200 mg PO TID 01/21/20 09/14/20 History escitalopram oxalate [Lexapro] 10 mg PO QAM 01/21/20 09/14/20 History lorazepam [Ativan] 0.5 mg PO BID 01/21/20 09/14/20 History raloxifene 60 mg PO DAILY@1200 01/21/20 09/14/20 History valsartan [Diovan] 80 mg PO DAILY@1200 01/21/20 09/14/20 History warfarin See Rx Instructions .ROUTE .COMPLEX 06/13/20 09/14/20 History docusate sodium [Col-Rite] 200 mg PO DAILY PRN 09/12/20 09/14/20 History polyethylene glycol 3350 [Miralax] 17 g PO BID PRN 09/14/20 09/14/20 History Patient History Medical History Anxiety Atrial fibrillation paroxysmal on warfarin CKD (chronic kidney disease) Depression DM type 2 (diabetes mellitus, type 2) diet controlled Hyperlipidemia Hypertension Obesity Osteoarthritis Parkinsons disease Urinary incontinence Vertigo Surgical History History of cholecystectomy lap cholecystectomy: 01/26/20: Grade 1 view, MAC#3, ETT 7 at [facility] History of incision and drainage shoulder> PT UNSURE OF DETAILS Hx of breast biopsy LEFT Hx of colonoscopy Family History Mother Atrial fibrillation Father Myocardial infarction Social History Smoking Status: Never smoker Second Hand Exposure: No; Do You Dip or Chew Tobacco: No; Tobacco Cessation Education Requested by Patient: No Hx Alcohol Use: No Hx Substance Use: No Preferred Language: Kiswahili Communication Ability: Effective [employer] Required: No Beliefs That Will Affect Care: None marital status: / Current Living Situation: Alone Current Living Situation Comment: Lives in a house Other Information That Helps Us Care for You: No Feels Safe at Home: Yes Safety Concerns: Feels Safe At This Time Assistive Devices: Glasses Review of Systems Review of Systems: All systems reviewed & are unremarkable except as noted in HPI & below Physical Exam Physical Exam: Temp Pulse Resp BP Pulse Ox 36.4 C L 65 18 158/91 H 94 09/18/20 11:17 09/18/20 11:17 09/18/20 11:17 09/18/20 11:17 09/18/20 11:17 Constitutional: WD/WN, vitals as above Respiratory: normal respiratory effort, lungs clear to auscultation Cardiovascular: Rate/Rhythm: + irregularly irregular Heart Sounds: no murmur Gastrointestinal (Abdomen): normal bowel sounds, soft, nontender, no hepatosplenomegaly Neurologic: Conversant, follows commands, moves all 4 extremities Results & Data ([facility]) Vital Signs (Past 12 Hours) Vital Signs Temp Pulse Pulse Pulse Resp BP BP 09/18/20 11:17 36.4 C L 65 18 158/91 H 09/18/20 08:00 60 09/18/20 07:41 36.4 C L 61 18 157/86 H 09/18/20 03:51 36.6 C 71 20 152/93 H 163/90 H Pulse Ox 09/18/20 11:17 94 09/18/20 08:00 09/18/20 07:41 94 09/18/20 03:51 95 Laboratory Results Coagulation INR 1.5 09/18/20 Range/Units 05:49 PT 14.5 H (9.0-12.0) Seconds Comprehensive Metabolic Panel 09/18/20 Range/Units 05:49 Sodium 140 (136-145) mmol/L Potassium 3.6 (3.5-5.1) mmol/L Chloride 107 (98-107) mmol/L Carbon Dioxide 30 (21-32) mmol/L BUN 19 H (7-18) mg/dl Creatinine 0.90 (0.6-1.2) mg/dl Glucose 94 (70-99) mg/dl Calcium 8.6 (8.5-10.1) mg/dl Intake and Output 09/17/20 09/18/20 09/18/20 22:59 06:59 14:59 Intake Total 360 / 740 Output Total 450 / 750 300 / 750 Balance -90 / -10 -300 / -10 Intake: Oral 360 / 740 Output: Urine 450 / 750 300 / 750 Other: Other Intake Source sips Weight 85.6 kg Diagnostic Findings EKG performed 09/14/2020 and reviewed independently reveals atrial fibrillation at 92 bpm, with poor R wave progression, nonspecific diffuse T wave flattening. Summary of dobutamine stress echocardiogram performed 01/20/2020 revealed no inducible ischemia, normal LVEF at rest 55 to 60%, severe left atrial enlargement, moderate hypertension.
--- NOTE | 2020-09-18 14:00 | Hospitalist Progress Note ---
Date of Service September 18, 2020 Assessment & Plan (1) Fall from ground level: Ambulatory dysfunction with recurrent falls Present on admission with mechanical fall Multiple imaging done showed no fracture Physical and occupational therapy recommended inpatient therapy Continue Refusing to go inpatient rehab Fall precaution (2) Rhabdomyolysis: Possible traumatic rhabdomyolysis Due to recurrent fall and inability to get up CK level on admission 3563 Receiving gentle IVF CK trending down from 1935 to 988--->624-->348 today Stable Hypokalemia Potassium 3.6 today Continue monitor BMP Scalp hematoma Due to the fall CT head showed no acute intracranial abnormality or calvarial fracture. Small hematoma of the left frontal scalp. Pt is on coumadin, will hold coumadin for now hgb dropped from 12 to 10 (mostly dilutional ) Continue Coumadin 3mg today Afib Rate is control with cardizem Coumadin was held for one day due to to scalp hematoma, INR 1.5 today Might not be a good candidate for anticoagulant if pt continues to have fall risk Telemonitor showed episode of bradycardia occurs during sleeps Continue Cardizem as per cardiology Bradycardia Asymptomatic, occurs during while sleeping cardiology consulted No prolonged bradycardia or pauses noted. No sufficient evidence to label her as having "tachycardia bradycardia syndrome " as per cardiology Continue cardizem 120mg PO as per cardiology Continue monitor Abnormal UA UA positive for leukocytes, nitrite received IV Rocephin on admission Urine cx showed alpha strep not enterococcus with low count Asymptomatic, afebrile and no leukocytosis Continue to hold additional abx DM type 2 Most recent hab1c 5.9 Continue monitor BS HTN Continue BP med stable DVT prophylaxis. Coumadin On heparin subq until coumadin at goal Full code Patient requests for her brother to be updated of plan of care. Mr. Torrey PhanJr. thru contact #[phone]. Admission and Anticipated Discharge Date Admission Date: September 14, 2020 Subjective Pt was seen and examined for follow up fall and bradycardia Lying in chair with no distress She continues to refuse to go to inpatient therapy Denies any chest pain, palpitation, dizziness and SOB Physical Exam Physical Exam: General- No acute distress Head- +scalp tenderness Eyes- PERRL, EOMI, ENT- oropharynx clear Neck- supple, no JVD Lungs- clear to auscultation Heart- irregular, +murmur Abdomen- normal bowel sounds, soft, nontender Extremities- no calf tenderness Neuro- alert, oriented x 3; PERRL, EOMI; no facial palsy; no dysarthria Skin- warm & dry Results & Data Results & Data ([facility]) Vital Signs (Past 12 Hours) Vital Signs Temp Pulse Pulse Pulse Resp BP BP 09/18/20 11:17 36.4 C L 65 18 158/91 H 09/18/20 08:00 60 09/18/20 07:41 36.4 C L 61 18 157/86 H 09/18/20 03:51 36.6 C 71 20 152/93 H 163/90 H Pulse Ox 09/18/20 11:17 94 09/18/20 08:00 09/18/20 07:41 94 09/18/20 03:51 95
--- NOTE | 2020-09-18 14:12 | Communication Note ---
Date of Service: September 18, 2020 I called and updated, spouse , Felecia, that patient was accepted in transfer.
[2020-09-18] MEDS: WARFARIN SOD 3 MG TAB PO SCH (17:47)
[2020-09-19] MEDS: INSULIN ASPART 100 UNITS/ML 3 ML PEN SC SCH ×2 (08:07→12:36)
[2020-09-19] MEDS: HEPARIN SOD 5,000 UNIT/0.5 ML VIAL SQ SCH (08:08)
[2020-09-19] MEDS: LORazepam 0.5 MG TAB PO SCH (08:09)
[2020-09-19] MEDS: ESCITALOPRAM OXALATE 10 MG TAB PO SCH (08:10)
[2020-09-19] MEDS: ENTACAPONE 200 MG TAB PO SCH ×2 (08:10→12:38)
[2020-09-19] MEDS: CARBIDOPA/LEVODOPA 25-250 1 EA TAB PO SCH ×2 (08:11→12:38)
[2020-09-19 08:36] LABS: Hemoglobin 11.2 g/dL (12.0-16.0); Mean Corpuscular Hemoglobin 24.3 pg (25-34); Mean Corpuscular Hgb Conc 31.1 g/dL (32-36); Mean Corpuscular Volume 78.3 fL (80-100); Platelet Count 210 K/uL (130-400); RDW Coefficient of Variation 16.6 % (11.5-14.5); RDW Standard Deviation 47.7 fL (36.4-46.3); White Blood Count 9.22 K/uL (4.8-10.8)
[2020-09-19 08:44] LABS: INR 1.4 (0.9-1.1); Prothrombin Time 13.8 Seconds (9.0-12.0)
[2020-09-19] MEDS: MICONAZOLE NITRATE POWDER 43 GM EXT PRN (12:37)
[2020-09-19] MEDS: dilTIAZem HCL 120 MG CAPCR PO SCH (12:38)
[2020-09-19] MEDS: VALSARTAN 80 MG TAB PO SCH (12:38)
[2020-09-19] MEDS: ACETAMINOPHEN 325 MG TAB PO PRN (12:46)
--- NOTE | 2020-09-19 13:13 | Hospitalist Progress Note ---
Date of Service September 19, 2020 Assessment & Plan (1) Fall from ground level: Ambulatory dysfunction with recurrent falls Present on admission with mechanical fall Multiple imaging done showed no fracture Physical and occupational therapy recommended inpatient therapy Continue Refusing to go inpatient rehab Fall precaution (2) Rhabdomyolysis: Possible traumatic rhabdomyolysis Due to recurrent fall and inability to get up CK level on admission 3563 Receiving gentle IVF CK trending down from 1935 to 988--->624-->348 today Statin on hold, will resume on discharge Stable Hypokalemia Potassium 3.6 today Continue monitor BMP Scalp hematoma Due to the fall CT head showed no acute intracranial abnormality or calvarial fracture. Small hematoma of the left frontal scalp. Pt is on coumadin, will hold coumadin for now Hgb stable Continue Coumadin 3mg today Afib Rate is control with cardizem Coumadin was held for one day due to to scalp hematoma, INR 1.5 today Might not be a good candidate for anticoagulant if pt continues to have fall risk Telemonitor showed episode of bradycardia occurs during sleeps Continue Cardizem as per cardiology Bradycardia Asymptomatic, occurs during while sleeping cardiology consulted No prolonged bradycardia or pauses noted. No sufficient evidence to label her as having "tachycardia bradycardia syndrome " as per cardiology Continue cardizem 120mg PO as per cardiology Continue monitor Abnormal UA UA positive for leukocytes, nitrite received IV Rocephin on admission Urine cx showed alpha strep not enterococcus with low count Asymptomatic, afebrile and no leukocytosis Continue to hold additional abx If pt spike any fever or develops any leukocytosis, consider to start on PO abx DM type 2 Most recent hab1c 5.9 Continue monitor BS HTN Continue BP med stable DVT prophylaxis. Coumadin On heparin subq until coumadin at goal while in patient Full code Patient requests for her brother to be updated of plan of care. Mr. Hirsch Jr Emilie. thru contact #[phone]. Disposition Discharge to rehab today Admission and Anticipated Discharge Date Admission Date: September 14, 2020 Subjective Pt was seen and examined for follow up fall and bradycardia Sitting in chair with no distress Pt said that she feels fine She said that she does have some tenderness in her right shoulder when she tries to push herself to stand from a sitting position She agreed to go to rehab after family maybe, myself and [employer] encouraged her to go Denies any chest pain, palpitation, dizziness and SOB Physical Exam Physical Exam: General- No acute distress Head- +scalp tenderness Eyes- PERRL, EOMI, ENT- oropharynx clear Neck- supple, no JVD Lungs- clear to auscultation Heart- irregular, +murmur Abdomen- normal bowel sounds, soft, nontender Extremities- no calf tenderness Neuro- alert, oriented x 3; PERRL, EOMI; no facial palsy; no dysarthria Skin- warm & dry Results & Data Results & Data ([facility]) Vital Signs (Past 12 Hours) Vital Signs Temp Pulse Pulse Resp BP Pulse Ox 09/19/20 11:38 36.8 C 88 18 146/79 H 92 09/19/20 07:55 36.5 C 65 18 153/82 H 92 09/19/20 07:02 65 09/19/20 05:05 72 09/19/20 04:10 36.9 C 59 L 20 165/99 H 93
[2020-09-19] MEDS ORDERED: FUROSEMIDE 20 MG in SYRINGE 0 ML IV ONE (13:30)
[2020-09-19] MEDS ORDERED: POTASSIUM CHLORIDE 10 MEQ TABCR PO ONE (13:30)
--- NOTE | 2020-09-19 15:10 | Cardiology Progress Note ---
Date of Service September 19, 2020 Assessment & Plan (1) Permanent atrial fibrillation: Stable heart rates noted. I do not think her fall due to bradycardia. Prior to hospital dose of Cardizem CD 120 mg daily. Continue Coumadin. INR 1.6 today, I believe it is reasonable to continue loading at rehab center. (2) Fall from ground level: mechanical fall. h/o [facility] Admission and Anticipated Discharge Date Admission Date: September 14, 2020 Subjective Patient seen in follow-up of atrial fibrillation. Denies any lightheadedness or dizziness. Treatment reveals atrial fibrillation for the most part in the range of 60 to 70 bpm, she is a little bit slower pursing this morning. Physical Exam Physical Exam: Temp Pulse Resp BP Pulse Ox 36.8 C 88 18 163/90 H 92 09/19/20 14:16 09/19/20 14:16 09/19/20 14:16 09/19/20 14:16 09/19/20 14:16 Constitutional: WD/WN, vitals as above Cardiovascular: Rate/Rhythm: + irregularly irregular Heart Sounds: + murmur (I/ SM) Vessels: no JVD Extremities: no edema Results & Data ([facility]) Vital Signs (Past 12 Hours) Vital Signs Temp Pulse Pulse Resp BP BP Pulse Ox 09/19/20 14:16 36.8 C 88 18 146/79 H 163/90 H 92 09/19/20 11:38 36.8 C 88 18 146/79 H 92 09/19/20 07:55 36.5 C 65 18 153/82 H 92 09/19/20 07:02 65 09/19/20 05:05 72 09/19/20 04:10 36.9 C 59 L 20 165/99 H 93
--- NOTE | 2020-09-23 13:37 | Discharge Summary ---
Date of Service September 19, 2020 Admission HPI Per Admitting Provider History obtained from patient and records. Medical history significant for PAF on Coumadin, hypertension, hyperlipidemia, Parkinson's disease, DM 2 diet-controlled. Last confinement May 2020 for closed sacral fracture status post surgery. Recent ER visit 2 days ago for a fall at home and inability to get up. Patient discharged back home from the ER. Patient fell again last night at her home while ambulating. Achy left upper extremity and left hip pain with head trauma. No chest pain, no S OB, no LOC. Patient had trouble getting up. No fever, no chills, no dysuria symptoms. Patient found by her brother at home today. At the ER, patient received IV ceftriaxone for possible UTI. 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 Admission Exam Per Admitting Provider GENERAL: Slightly uncomfortable, masklike facies, no respiratory distress, obese SKIN: Normal color, warm HEENT: Bespectacled, pink palpebral conjunctivae, no ptosis, dry buccal mucosa NECK : Supple, no tenderness CHEST : CTA, no tenderness HEART : Irregular, systolic murmur ABDOMEN: Some distention, nontender EXTREMITIES : Minimal LE swelling, no LE tenderness, no other conspicuous deformities noted NEUROLOGIC : Coherent, no facial asymmetry, gait and stance not assessed Principal Diagnosis Fall from ground level Ambulatory dysfunction with recurrent falls Rhabdomyolysis: Hypokalemia Scalp hematoma Atrial fibrillation Bradycardia Abnormal Urine Diabetes type 2 Hypertension Discharge Exam General- No acute distress Head- +scalp tenderness Eyes- PERRL, EOMI, ENT- oropharynx clear Neck- supple, no JVD Lungs- clear to auscultation Heart- irregular, +murmur Abdomen- normal bowel sounds, soft, nontender Extremities- no calf tenderness Neuro- alert, oriented x 3; PERRL, EOMI; no facial palsy; no dysarthria Skin- warm & dry Discharge Data Allergies Allergy/AdvReac Type Severity Reaction Status Date / Time pramipexole AdvReac Unknown hallucinati Verified 06/08/20 21:04 ons Consultations 09/14/20 19:23 ED Decision to Admit Stat 09/14/20 21:33 Consult Case Management - Discharge Planning Routine 09/18/20 11:04 Consult Cardiology Routine Ordered Studies 09/14/20 16:52 CT cervical spine wo con Stat CT head/brain wo con Stat XR chest inspiration/expiratio HISTORY: 75 years-old Female abn pcxr ro pneumothorax L acute shortness of breath COMPARISON: Chest radiograph of same day at 5:34 PM TECHNIQUE: Inspiration and expiration AP views of the chest FINDINGS: No pneumothorax, pleural effusion, airspace consolidation or overt pulmonary edema. The previously noted line overlying the left hemithorax with likely secon gogo to a skin fold. Unchanged linear scarring/atelectasis of the left lung base with subcentimeter left midlung calcified granuloma. Degenerative changes of the shoulders and spine. IMPRESSION: 1. No acute process. 2. No pneumothorax. ACT 112: Negative or not required by law. The above report was generated using voice recognition software. It may contain grammatical, syntax or spelling errors. Electronically signed by: Abram Restrepo M.D. 09/14/2020 9:02 PM Dictated: 09/14/202100Transcribed: 09/14/202100 XR humerus LT 2V, XR hand LT min 3V routine, XR elbow LT min 3V routine HISTORY: 75 years-old Female fall acute pain of the left upper extremity status post fall COMPARISON: None TECHNIQUE: 2 views of the left humerus, 3 views of the left elbow and 3 views of the left hand FINDINGS: HUMERUS: Osteoarthritis of the shoulder. No acute fracture or dislocation. ELBOW: Degenerative spurring of the elbow. No dislocation or appreciable joint effusion. Questioned cortical irregularity involves the anterior cortex of the radial neck. HAND: Moderate multifocal osteoarthritis. Numerous punctate radiodense foci project over the dorsal tissues of the third and fourth digits at the level of the proximal phalanges. Demineralized appearance of the bones. No acute fracture or dislocation. Soft tissue swelling at the level of the metatarsal-phalangeal joints. IMPRESSION: 1. No acute fracture or dislocation of the left humerus or left hand. 2. Questioned cortical irregularity involving the anterior cortex of the radial neck is suggestive of of an age-indeterminate fracture. Correlate with point tenderness. This could also be evaluated with follow-up radiographs in 7-10 days. 3. Numerous punctate radiodense foci project over the dorsal tissues of the proximal third and fourth fingers. ACT 112: Negative or not required by law. The above report was generated using voice recognition software. It may contain grammatical, syntax or spelling errors. Electronically signed by: Abram Restrepo M.D. 09/14/2020 6:11 PM Dictated: 09/14/20 180Transcribed: 09/14/201805 XR hip LT 2V w pelvis HISTORY: 75 years-old Female fall acute pelvic pain status post fall COMPARISON: Pelvis radiograph 09/12/2020 TECHNIQUE: AP view the pelvis with 2 views of the left hip FINDINGS: Moderate osteoarthritis of the hips. No acute fracture or dislocation. Posterior interbody lia and screw fusion of the lumbar spine with bilateral iliac bolts. IMPRESSION: No acute fracture or dislocation. ACT 112: Negative or not required by law. The above report was generated using voice recognition software. It may contain grammatical, syntax or spelling errors. Electronically signed by: Abram Restrepo M.D. 09/14/2020 6:06 PM Dictated: 09/14/20 180Transcribed: 09/14/201803 CT head/brain wo con CLINICAL HISTORY: 75 years-old Female with fall. Acute head injury status post fall TECHNIQUE: Multiple axial CT images of the head were obtained without contrast. A dose lowering technique was utilized adhering to the principles of ALARA. CT DOSE: 638.56 mGycm COMPARISON: Head CT 06/11/2017 FINDINGS: No acute intracranial hemorrhage, midline shift, intracranial mass, hydrocephalus, territorial ischemia or abnormal extra-axial collection. Age- related involutional changes. Mild white matter hypodensities suggest chronic microvascular ischemic disease. Motion degraded exam. Cerebral vascular calcifications. The calvarium is intact. Subcutaneous hematoma of the left forehead/frontal scalp measures up to 5.0 x 0.8 cm. The paranasal sinuses, mastoid air cells, and middle ear cavities are clear. IMPRESSION: 1. No acute intracranial abnormality or calvarial fracture. 2. Small hematoma of the left frontal scalp. ACT 112: Negative or not required by law. The above report was generated using voice recognition software. It may contain grammatical, syntax or spelling errors. Electronically signed by: Abram Restrepo M.D. 09/14/2020 5:24 PM Dictated: 02/1721Transcribed: 09/14/20 172 XR humerus LT 2V, XR hand LT min 3V routine, XR elbow LT min 3V routine HISTORY: 75 years-old Female fall acute pain of the left upper extremity status post fall COMPARISON: None TECHNIQUE: 2 views of the left humerus, 3 views of the left elbow and 3 views of the left hand FINDINGS: HUMERUS: Osteoarthritis of the shoulder. No acute fracture or dislocation. ELBOW: Degenerative spurring of the elbow. No dislocation or appreciable joint effusion. Questioned cortical irregularity involves the anterior cortex of the radial neck. HAND: Moderate multifocal osteoarthritis. Numerous punctate radiodense foci project over the dorsal tissues of the third and fourth digits at the level of the proximal phalanges. Demineralized appearance of the bones. No acute fracture or dislocation. Soft tissue swelling at the level of the metatarsal-phalangeal joints. IMPRESSION: 1. No acute fracture or dislocation of the left humerus or left hand. 2. Questioned cortical irregularity involving the anterior cortex of the radial neck is suggestive of of an age-indeterminate fracture. Correlate with point tenderness. This could also be evaluated with follow-up radiographs in 7-10 days. 3. Numerous punctate radiodense foci project over the dorsal tissues of the proximal third and fourth fingers. ACT 112: Negative or not required by law. The above report was generated using voice recognition software. It may contain grammatical, syntax or spelling errors. Electronically signed by: Abram Restrepo M.D. 09/14/2020 6:11 PM Dictated: 09/14/201805Transcribed: 09/14/201805 XR humerus LT 2V, XR hand LT min 3V routine, XR elbow LT min 3V routine HISTORY: 75 years-old Female fall acute pain of the left upper extremity status post fall COMPARISON: None TECHNIQUE: 2 views of the left humerus, 3 views of the left elbow and 3 views of the left hand FINDINGS: HUMERUS: Osteoarthritis of the shoulder. No acute fracture or dislocation. ELBOW: Degenerative spurring of the elbow. No dislocation or appreciable joint effusion. Questioned cortical irregularity involves the anterior cortex of the radial neck. HAND: Moderate multifocal osteoarthritis. Numerous punctate radiodense foci project over the dorsal tissues of the third and fourth digits at the level of the proximal phalanges. Demineralized appearance of the bones. No acute fracture or dislocation. Soft tissue swelling at the level of the metatarsal-phalangeal joints. IMPRESSION: 1. No acute fracture or dislocation of the left humerus or left hand. 2. Questioned cortical irregularity involving the anterior cortex of the radial neck is suggestive of of an age-indeterminate fracture. Correlate with point tenderness. This could also be evaluated with follow-up radiographs in 7-10 days. 3. Numerous punctate radiodense foci project over the dorsal tissues of the proximal third and fourth fingers. ACT 112: Negative or not required by law. The above report was generated using voice recognition software. It may contain grammatical, syntax or spelling errors. Electronically signed by: Abram Restrepo M.D. 09/14/2020 6:11 PM Dictated: 09/14/201805Transcribed: 09/14/201805 XR chest 1V portable HISTORY: 75 years-old Female weakness acute weakness COMPARISON: Chest radiographs 05/20/2020 TECHNIQUE: Semierect portable AP view the chest FINDINGS: Cardiac silhouette is enlarged. Unchanged linear scarring/atelectasis of the left lung base with subcentimeter left midlung calcified granuloma. Linear line overlying the lateral left hemithorax. No pleural effusion, overt pulmonary edema or airspace consolidation typical for pneumonia. Bones appear grossly intact. IMPRESSION: 1. Linear line overlying the lateral left hemithorax is suggestive of a skin fold. Pneumothorax considered less likely. This could be confirmed with inspiration and expiration films. 2. Mild cardiomegaly. 3. Chronic findings as above. ACT 112: Negative or not required by law. The above report was generated using voice recognition software. It may contain grammatical, syntax or spelling errors. Electronically signed by: Abram Restrepo M.D. 09/14/2020 6:29 PM Dictated: 09/14/201826Transcribed: 09/14/201826 CT cervical spine wo con CT DOSE: 401.84 mGycm CLINICAL HISTORY: 75 years-old Female with fall. Acute head and neck injury status post fall COMPARISON: Head CT of same day, CT cervical spine 06/11/2017 TECHNIQUE: Multiple axial CT images of the cervical spine were obtained without contrast. A dose lowering technique was utilized adhering to the principles of ALARA. FINDINGS: Demineralized appearance of the bones. Moderate degeneration at C1-C2. Mild multilevel facet arthrosis. No acute fracture or subluxation. There is no pneumothorax. 4 mm solid nodule of the left lung apex, image 488 of series 102 is unchanged from comparison suggestive of benign etiology. There is no prevertebral edema. Calcified plaque of the carotid bulbs IMPRESSION: No acute fracture or subluxation. ACT 112: Negative or not required by law. The above report was generated using voice recognition software. It may contain grammatical, syntax or spelling errors. Electronically signed by: Abram Restrepo M.D. 09/14/2020 5:37 PM Dictated: 09/14/201732Transcribed: 09/14/20 173 Hospital Course (1) Fall from ground level: Ambulatory dysfunction with recurrent falls Present on admission with mechanical fall Multiple imaging done showed no fracture Physical and occupational therapy recommended inpatient therapy Continue Refusing to go inpatient rehab Fall precaution (2) Rhabdomyolysis: Possible traumatic rhabdomyolysis Due to recurrent fall and inability to get up CK level on admission 3563 Receiving gentle IVF CK trending down from 1935 to 988--->624-->348 today Statin on hold, will resume on discharge Stable Hypokalemia Potassium 3.6 today Continue monitor BMP Scalp hematoma Due to the fall CT head showed no acute intracranial abnormality or calvarial fracture. Small hematoma of the left frontal scalp. Pt is on coumadin, will hold coumadin for now Hgb stable Continue Coumadin 3mg today Afib Rate is control with cardizem Coumadin was held for one day due to to scalp hematoma, INR 1.5 today Might not be a good candidate for anticoagulant if pt continues to have fall risk Telemonitor showed episode of bradycardia occurs during sleeps Continue Cardizem as per cardiology Bradycardia Asymptomatic, occurs during while sleeping cardiology consulted No prolonged bradycardia or pauses noted. No sufficient evidence to label her as having "tachycardia bradycardia syndrome " as per cardiology Continue cardizem 120mg PO as per cardiology Continue monitor Abnormal UA UA positive for leukocytes, nitrite received IV Rocephin on admission Urine cx showed alpha strep not enterococcus with low count Asymptomatic, afebrile and no leukocytosis Continue to hold additional abx If pt spike any fever or develops any leukocytosis, consider to start on PO abx DM type 2 Most recent hab1c 5.9 Continue monitor BS HTN Continue BP med stable DVT prophylaxis on Coumadin On heparin subq until coumadin at goal while in patient Full code Patient requests for her brother to be updated of plan of care. Mr. Torrey GrimmJr amy. thru contact #[phone]. Disposition Discharge to rehab today Total Time Total Time Spent Total Time Spent (In Minutes): 35 minutes Total Time Includes: Examination of the Patient, Discharge Planning, Medication Reconciliation, Communication With Other Providers and Other Discharge Plan Discharge Items Patient Disposition: Transfer Inpatient Rehab Fac Reason For Visit: HEAD TRAUMA, RHABDOMYOLYSIS Discharge Diagnosis: Fall from ground level Ambulatory dysfunction with recurrent falls Rhabdomyolysis: Hypokalemia Scalp hematoma Atrial fibrillation Bradycardia Abnormal Urine Diabetes type 2 Hypertension Activity: Resume your previous activity Non-emergency contact: Primary Care Provider Call non-emergency contact if: you have any medication questions and your symptoms worsen Follow-up/Referrals: Titi Baez, [Primary Care Provider] - Diet: Carb Consistent or DM2 and Heart Healthy Addtl Attending Provider Instructions: Follow up with your primary care provider once discharge from rehab Follow up with the coumadin clinic to monitor your PT/INR Continue physical and occupational therapy Fall precaution Seek any medical attention if you develop any fever or SOB Pending Studies at Discharge: No Stand-Alone Forms: [employer] [facility] Skilled Items Patient informed of condition?: Yes DNR: No Discharge Level of Care: Acute rehab Communicable Disease: No Discharge Prognosis: Stable Lines: None Urinary Catheter: No Medications and DC Order Prescriptions: New warfarin 3 mg Tablet 3 mg PO DAILY@1600 Qty: 30 RF: 0 Continued docusate sodium [Col-Rite] 100 mg capsule 200 mg PO DAILY PRN (Reason: Constipation) RF: 0 atorvastatin [Lipitor] 40 mg Tablet 80 mg PO QPM RF: 0 carbidopa-levodopa [Sinemet] 25-250 mg Tablet 1 tab PO QID RF: 0 valsartan [Diovan] 80 mg Tablet 80 mg PO DAILY@1200 RF: 0 entacapone [Comtan] 200 mg Tablet 200 mg PO TID RF: 0 diltiazem HCl [Cardizem] 120 mg Tablet 120 mg PO DAILY@1200 RF: 0 lorazepam [Ativan] 0.5 mg Tablet 0.5 mg PO BID RF: 0 calcitriol 0.5 mcg Capsule 0.5 mcg PO DAILY@1200 RF: 0 raloxifene 60 mg Tablet 60 mg PO DAILY@1200 RF: 0 escitalopram oxalate [Lexapro] 10 mg Tablet 10 mg PO QAM RF: 0 cholecalciferol (vitamin D3) [Vitamin D3] 25 mcg (1,000 unit) Tablet 25 mcg PO BID RF: 0 polyethylene glycol 3350 [Miralax] 17 gram powder in packet 17 g PO BID PRN (Reason: Constipation) RF: 0 Discontinued warfarin 2.5 mg Tablet See Rx Instructions .ROUTE .COMPLEX RF: 0 Discharge Orders: Discharge Order (Routine); Ordered 09/19/20 Ordered By: Clara Ibarra Admission Data Admit Date/Time: 09/14/20 20:07 Attending Provider: Clara Ibarra Admit Provider: Gamal Marie Primary Care Provider: Titi Baez Other Providers: Gamal Marie ; [facility] ; Malik Montoya Other Interventions: Discharge Summary Assessment (RN) Last Done: 09/19/20 14:16
== END 2020-09-19 14:46 ==
LOC: ED 16:28 → 2W 20:07

== ENCOUNTER 2021-04-23 00:48 | Inpatient (IN) ==
[2021-04-23] MEDS ORDERED: SODIUM CHLORIDE 0.9% 1000ML 1,000 ML IV ONE ×2 (01:00→02:13)
[2021-04-23] MEDS ORDERED: MoRPHine SULFATE 4 MG/ML 1 ML CARP\\VIAL IV STA (01:00)
[2021-04-23] MEDS ORDERED: ONDANSETRON INJ 2 MG/ML 2 ML VIAL IV STA (01:00)
--- NOTE | 2021-04-23 01:06 | Emergency Department Note ---
Impression & Plan Acidosis, lactic, Illness, Low back pain ED Provider Note Name: NANCY RODRIGUEZ Age: 75 Sex: F Arrives Via: Ambulance Informant: Patient, EMS ED Provider: Delfino Mg MD Chief Complaint: back pain Impression: As per impressions above Medical Decision Makin yr old female with extensive PMH arrives with worsening low back pain, though by exam suspect more than just back given she is ill appearing and quite dehydrated. Cultures, sepsis management initiated and 2 L NSS given with empiric broad abx. CT a/p without acute findings. Labs with elevated lactated. No clear source infection noted however. Repeat examination is improving symptoms, though lactate remains elevated. Given findings will require hospitalization for further evaluation/management. She is without peritonitis nor abdominal pain thus not consistent with bowel ischemia. No meningitis by exam. Without acute neuro deficits will defer MRI back to hospitalist team. Prior Medical Record and Triage/Nursing Notes reviewed by Me Additional history obtained from chart Differentials:Infection, dehydration, metabolic abnormality, h ypo/hyperglycemia, electrolyte disturbance, anemia, hypoxia, cardiac sources, intracerebral event, toxicologic, neurologic, as well as other pathologies. Vital Signs: reviewed and remarkable for no significant abnormalities Interventions: nss bolus 2 L IV, cefepime iv, morphine iv Given the patients BMI >30, IBW was used to calculate the 30ml/kg fluid bolus. Labs:Reviewed and remarkable for elevated lactic acid, mild ck bump Imaging:X ray results are stated below per my interpretation: Chest: 1 view: No infiltrate, no effusion, normal cardiac border. [facility] Radiologist interpretation reviewed by me: ct ap no acute findings EKG:Per My Interpretation: Indication sepsis: afib 70 bpm, qtc 421. No Ectopy. No Ischemia. Compared to EKG 09/14/20, no significant changes. Consults:Hospitalist Plan: Disposition:Hospitalization. Condition: Good History of Present Illness:75 yr old female arrives for evaluation of low back pain. Patient notes worsening low back pain over last few weeks. Associated with fevers, chills, weakness, and fatigue. Worse with movement. better with Rest. Using tylenol without improvement. Notes unable to stand due to pain. No focal weakness. States she is having difficulty with urination and some burning recently. No headache, neck pain, cp, sob, syncope, abdominal pain, bowel symptoms, leg swelling, nausea, vomiting, rashes, nor other symptoms. States history back surgery a year ago and initially doing well until a few weeks ago. No recent antibiotics. ROS: See above HPI for pertinent positives & negatives. A total of 10 systems reviewed and were otherwise negative. Past Medical History:See Below Past Surgical History:See Below Family History:See Below Social History:See Below Home Medications:See Below Allergies:Pramipexole Vitals:Blood Pressure: 141/86, Pulse 89, RR 20, T 37.1C, O2 93% on RA Physical Exam: GENERAL: Patient is chronically unwell appearing and in moderate distress. Ill appearing EYES: No scleral icterus, unremarkable pupils. ENT: Mucous membranes dry, no nasal congestion. NECK: No masses appreciated, nomeningismus, trachea is midline. RESPIRATORY: No dyspnea. Clear to auscultation and equal bilaterally. No wheeze, no rhonchi. CARDIOVASCULAR: Irregular.No murmurs, rubs, gallops appreciated. GASTROINTESTINAL: Abdomen soft, non-tender, no peritonitis.Bowel sounds positive.No masses appreciated. BACK: Moderate pain with sitting up. No midline tenderness, no CVA tenderness EXTREMITIES: Normal motion all extremities, no cyanosis, no edema. NEUROLOGIC: Alert and oriented, no acute motor or sensory deficits, no focal weakness, cranial nerves grossly intact. SKIN: No rash, no jaundice, no diaphoresis. PSYCH: Appropriate GCS: 15 ED Course: Times/Reassessments: Patient appears much improved with IV fluids, agreeable to hospitalization Delfino Mg MD Past Med/Surg History Medical History (Updated 04/24/21 @ 17:03 by Delfino Mg MD) Acute UTI (urinary tract infection) Anxiety Atrial fibrillation paroxysmal on warfarin CKD (chronic kidney disease) Contusion of multiple sites Depression DM type 2 (diabetes mellitus, type 2) diet controlled Fall Fall from ground level Hyperlipidemia Hypertension Obesity Osteoarthritis Parkinsons disease Rhabdomyolysis Urinary incontinence Vertigo Surgical History History of cholecystectomy lap cholecystectomy: 01/26/20: Grade 1 view, MAC#3, ETT 7 at [facility] History of incision and drainage shoulder> PT UNSURE OF DETAILS Hx of breast biopsy LEFT Hx of colonoscopy Family History Mother Atrial fibrillation Father Myocardial infarction Social History Smoking Status: Never smoker Second Hand Exposure: No; Hx Alcohol Use: No Hx Substance Use: No Preferred Language: German Communication Ability: Effective Data Center Manager Required: No Beliefs That Will Affect Care: None marital status: / Current Living Situation: Alone Current Living Situation Comment: Lives in a house Other Information That Helps Us Care for You: No Feels Safe at Home: Yes Safety Concerns: Feels Safe At This Time Assistive Devices: Walker and Wheelchair Allergies Allergies Allergy/AdvReac Type Severity Reaction Status Date / Time pramipexole AdvReac Intermediate hallucinati Verified 04/23/21 01:20 ons Home Meds Home Medications Medication Instructions Recorded Confirmed atorvastatin 40 mg tablet (Lipitor) 80 mg PO QPM 01/21/20 04/23/21 calcitriol 0.5 mcg capsule 0.5 mcg PO QDL 01/21/20 04/23/21 cholecalciferol (vitamin D3) 25 50 mcg PO BID 01/21/20 04/23/21 mcg (1,000 unit) tablet (Vitamin D3) entacapone 200 mg tablet (Comtan) 200 mg PO TID 01/21/20 04/23/21 escitalopram oxalate 10 mg tablet 10 mg PO QAM 01/21/20 04/23/21 (Lexapro) lorazepam 0.5 mg tablet (Ativan) 0.5 mg PO BID 01/21/20 04/23/21 raloxifene 60 mg tablet 60 mg PO QDL 01/21/20 04/23/21 valsartan 80 mg tablet (Diovan) 80 mg PO QDL 01/21/20 04/23/21 docusate sodium 100 mg capsule 200 mg PO DAILY PRN 09/12/20 04/23/21 (Col-Rite) polyethylene glycol 3350 17 gram 17 g PO BID PRN 09/14/20 04/23/21 oral powder packet (Miralax) acetaminophen 325 mg tablet 650 mg PO Q4H PRN 04/23/21 04/23/21 (Tylenol) carbidopa 25 mg-levodopa 250 mg 1 tab PO QID 04/23/21 04/23/21 tablet diltiazem HCl 120 mg 120 mg PO QAM 04/23/21 04/23/21 capsule,extended release 24 hr iron,carbonyl 65 mg-vitamin C 125 1 tab PO DAILY 04/23/21 04/23/21 mg tablet,delayed release (Vitron-C) metoprolol succinate 25 mg 12.5 mg PO QAM 04/23/21 04/23/21 tablet,extended release 24 hr nystatin 100,000 unit/gram topical 1 applic TOPICAL TID 04/23/21 04/23/21 powder warfarin 3 mg tablet See Rx Instructions .ROUTE .COMPLEX 04/23/21 04/23/21 Results & Data (ED) Vital Signs Vital Signs - 24 hr 04/23/21 19:04 04/23/21 22:00 04/23/21 22:37 Temperature 36.7 C 36.7 C Temperature Source Oral Oral Pulse Rate Pulse Rate [Finger] 63 84 Respiratory Rate 18 18 Respiratory Effort / Characteristics Non-Labored Spontaneous Respiratory Depth Normal Respiratory Pattern Regular Blood Pressure [Left Arm] 130/85 143/80 H Blood Pressure Mean [Left Arm] 100 101 Blood Pressure Position [Left Arm] Lying Lying Pulse Oximetry 93 95 Oxygen Delivery Method Room Air Room Air Room Air 04/24/21 04:10 04/24/21 06:00 04/24/21 07:49 Temperature 36.8 C 36.7 C Temperature Source Oral Oral Pulse Rate 99 H Pulse Rate [Finger] 75 72 Respiratory Rate 17 18 Respiratory Effort / Characteristics Respiratory Depth Respiratory Pattern Blood Pressure [Left Arm] 165/77 H 163/91 H Blood Pressure Mean [Left Arm] 106 115 Blood Pressure Position [Left Arm] Lying Pulse Oximetry 93 94 Oxygen Delivery Method Room Air Room Air 04/24/21 09:15 Temperature Temperature Source Pulse Rate Pulse Rate [Finger] Respiratory Rate Respiratory Effort / Characteristics Non-Labored Spontaneous Respiratory Depth Normal Respiratory Pattern Regular Blood Pressure [Left Arm] Blood Pressure Mean [Left Arm] Blood Pressure Position [Left Arm] Pulse Oximetry Oxygen Delivery Method Room Air Laboratory Data Result diagrams: 04/24/21 06:45 04/24/21 06:45 Lab Results 04/23/21 04/23/21 04/23/21 Range/Units 01:18 01:18 01:18 WBC 6.48 (4.8-10.8) K/uL RBC 4.98 (4.2-5.4) M/uL Hgb 13.1 (12.0-16.0) g/dL Hct 39.5 (37-47) % MCV 79.3 L (80-100) fL MCH 26.3 (25-34) pg MCHC 33.2 (32-36) g/dL RDW Std Deviation 56.3 H (36.4-46.3) fL RDW Coeff of Ratna 19.2 H (11.5-14.5) % Plt Count 197 (130-400) K/uL MPV 10.4 (7.4-10.4) fL Immature Gran % (Auto) 0.2 % Neut % (Auto) 71.5 % Lymph % (Auto) 14.7 % [place] % (Auto) 12.7 % Eos % (Auto) 0.6 % Baso % (Auto) 0.3 % Neut # (Auto) 4.64 (1.4-6.5) K/uL Lymph # (Auto) 0.95 L (1.2-3.4) K/uL [place] # (Auto) 0.82 H (0.11-0.59) K/uL Eos # (Auto) 0.04 (0-0.5) K/uL Baso # (Auto) 0.02 (0-0.2) K/uL Immature Gran # (Auto) 0.01 (0.00-0.02) K/uL PT (9.0-12.0) Seconds INR (0.9-1.1) Sodium 140 (136-145) mmol/L Potassium 3.5 (3.5-5.1) mmol/L Chloride 110 H (98-107) mmol/L Carbon Dioxide 29 (21-32) mmol/L Anion Gap 1.0 L (3-11) BUN 27 H (7-18) mg/dl Creatinine 1.36 H (0.6-1.2) mg/dl Est Cr Clr Drug Dosing Not Reportable Est GFR ( Amer) 44.6 ml/min Est GFR (Non-Af Amer) 38.5 ml/min BUN/Creatinine Ratio 20.1 H (10-20) Glucose 107 H (70-99) mg/dl POC Glucose (70-99) mg/dl Lactate 2.7 H* (0.4-2.0) mmol/L Calcium 9.2 (8.5-10.1) mg/dl Magnesium 1.6 L (1.8-2.4) mg/dl Total Bilirubin 0.8 (0.2-1) mg/dl Direct Bilirubin 0.3 H (0-0.2) mg/dl AST 41 H (15-37) U/L ALT 17 (12-78) U/L Alkaline Phosphatase 92 (45-117) U/L Total Creatine Kinase 294 H (26-192) U/L Troponin I < 0.015 (0-0.045) ng/ml Total Protein 6.5 (6.4-8.2) gm/dl Albumin 2.8 L (3.4-5.0) gm/dl Lipase 202 (73-393) U/L Procalcitonin (0-0.5) ng/ml Urine Color Urine Appearance (Clear) Urine pH (4.5-7.5) Ur Specific [place] (1.000-1.030) Urine Protein (Negative) Urine Glucose (UA) (Negative) Urine Ketones (Negative) Urine Blood (Negative) Urine Nitrite (Negative) Urine Bilirubin (Negative) Urine Urobilinogen (Negative) Ur Leukocyte Esterase (Negative) COVID-19 Eval Order SARS-CoV-2 (PCR) (Negative) 04/23/21 04/23/21 04/23/21 Range/Units 01:18 01:18 02:15 WBC (4.8-10.8) K/uL RBC (4.2-5.4) M/uL Hgb (12.0-16.0) g/dL Hct (37-47) % MCV (80-100) fL MCH (25-34) pg MCHC (32-36) g/dL RDW Std Deviation (36.4-46.3) fL RDW Coeff of Ratna (11.5-14.5) % Plt Count (130-400) K/uL MPV (7.4-10.4) fL Immature Gran % (Auto) % Neut % (Auto) % Lymph % (Auto) % [place] % (Auto) % Eos % (Auto) % Baso % (Auto) % Neut # (Auto) (1.4-6.5) K/uL Lymph # (Auto) (1.2-3.4) K/uL [place] # (Auto) (0.11-0.59) K/uL Eos # (Auto) (0-0.5) K/uL Baso # (Auto) (0-0.2) K/uL Immature Gran # (Auto) (0.00-0.02) K/uL PT 32.5 H (9.0-12.0) Seconds INR 3.5 H (0.9-1.1) Sodium (136-145) mmol/L Potassium (3.5-5.1) mmol/L Chloride (98-107) mmol/L Carbon Dioxide (21-32) mmol/L Anion Gap (3-11) BUN (7-18) mg/dl Creatinine (0.6-1.2) mg/dl Est Cr Clr Drug Dosing Est GFR ( Amer) ml/min Est GFR (Non-Af Amer) ml/min BUN/Creatinine Ratio (10-20) Glucose (70-99) mg/dl POC Glucose (70-99) mg/dl Lactate (0.4-2.0) mmol/L Calcium (8.5-10.1) mg/dl Magnesium (1.8-2.4) mg/dl Total Bilirubin (0.2-1) mg/dl Direct Bilirubin (0-0.2) mg/dl AST (15-37) U/L ALT (12-78) U/L Alkaline Phosphatase (45-117) U/L Total Creatine Kinase (26-192) U/L Troponin I (0-0.045) ng/ml Total Protein (6.4-8.2) gm/dl Albumin (3.4-5.0) gm/dl Lipase (73-393) U/L Procalcitonin < 0.05 (0-0.5) ng/ml Urine Color Dark Yellow Urine Appearance Clear (Clear) Urine pH 6.0 (4.5-7.5) Ur Specific [place] 1.018 (1.000-1.030) Urine Protein Negative (Negative) Urine Glucose (UA) Negative (Negative) Urine Ketones Trace H (Negative) Urine Blood Negative (Negative) Urine Nitrite Negative (Negative) Urine Bilirubin Negative (Negative) Urine Urobilinogen Negative (Negative) Ur Leukocyte Esterase Negative (Negative) COVID-19 Eval Order SARS-CoV-2 (PCR) (Negative) 04/23/21 04/23/21 04/23/21 Range/Units 02:31 02:31 04:43 WBC (4.8-10.8) K/uL RBC (4.2-5.4) M/uL Hgb (12.0-16.0) g/dL Hct (37-47) % MCV (80-100) fL MCH (25-34) pg MCHC (32-36) g/dL RDW Std Deviation (36.4-46.3) fL RDW Coeff of Ratna (11.5-14.5) % Plt Count (130-400) K/uL MPV (7.4-10.4) fL Immature Gran % (Auto) % Neut % (Auto) % Lymph % (Auto) % [place] % (Auto) % Eos % (Auto) % Baso % (Auto) % Neut # (Auto) (1.4-6.5) K/uL Lymph # (Auto) (1.2-3.4) K/uL [place] # (Auto) (0.11-0.59) K/uL Eos # (Auto) (0-0.5) K/uL Baso # (Auto) (0-0.2) K/uL Immature Gran # (Auto) (0.00-0.02) K/uL PT (9.0-12.0) Seconds INR (0.9-1.1) Sodium (136-145) mmol/L Potassium (3.5-5.1) mmol/L Chloride (98-107) mmol/L Carbon Dioxide (21-32) mmol/L Anion Gap (3-11) BUN (7-18) mg/dl Creatinine (0.6-1.2) mg/dl Est Cr Clr Drug Dosing Est GFR ( Amer) ml/min Est GFR (Non-Af Amer) ml/min BUN/Creatinine Ratio (10-20) Glucose (70-99) mg/dl POC Glucose (70-99) mg/dl Lactate 2.3 H* (0.4-2.0) mmol/L Calcium (8.5-10.1) mg/dl Magnesium (1.8-2.4) mg/dl Total Bilirubin (0.2-1) mg/dl Direct Bilirubin (0-0.2) mg/dl AST (15-37) U/L ALT (12-78) U/L Alkaline Phosphatase (45-117) U/L Total Creatine Kinase (26-192) U/L Troponin I (0-0.045) ng/ml Total Protein (6.4-8.2) gm/dl Albumin (3.4-5.0) gm/dl Lipase (73-393) U/L Procalcitonin (0-0.5) ng/ml Urine Color Urine Appearance (Clear) Urine pH (4.5-7.5) Ur Specific [place] (1.000-1.030) Urine Protein (Negative) Urine Glucose (UA) (Negative) Urine Ketones (Negative) Urine Blood (Negative) Urine Nitrite (Negative) Urine Bilirubin (Negative) Urine Urobilinogen (Negative) Ur Leukocyte Esterase (Negative) COVID-19 Eval Order Covid19 at [facility] SARS-CoV-2 (PCR) NEGATIVE (Negative) 04/23/21 04/23/21 04/23/21 Range/Units 05:04 07:38 11:55 WBC (4.8-10.8) K/uL RBC (4.2-5.4) M/uL Hgb (12.0-16.0) g/dL Hct (37-47) % MCV (80-100) fL MCH (25-34) pg MCHC (32-36) g/dL RDW Std Deviation (36.4-46.3) fL RDW Coeff of Ratna (11.5-14.5) % Plt Count (130-400) K/uL MPV (7.4-10.4) fL Immature Gran % (Auto) % Neut % (Auto) % Lymph % (Auto) % [place] % (Auto) % Eos % (Auto) % Baso % (Auto) % Neut # (Auto) (1.4-6.5) K/uL Lymph # (Auto) (1.2-3.4) K/uL [place] # (Auto) (0.11-0.59) K/uL Eos # (Auto) (0-0.5) K/uL Baso # (Auto) (0-0.2) K/uL Immature Gran # (Auto) (0.00-0.02) K/uL PT (9.0-12.0) Seconds INR (0.9-1.1) Sodium (136-145) mmol/L Potassium (3.5-5.1) mmol/L Chloride (98-107) mmol/L Carbon Dioxide (21-32) mmol/L Anion Gap (3-11) BUN (7-18) mg/dl Creatinine (0.6-1.2) mg/dl Est Cr Clr Drug Dosing Est GFR ( Amer) ml/min Est GFR (Non-Af Amer) ml/min BUN/Creatinine Ratio (10-20) Glucose (70-99) mg/dl POC Glucose 106 H 93 123 H (70-99) mg/dl Lactate (0.4-2.0) mmol/L Calcium (8.5-10.1) mg/dl Magnesium (1.8-2.4) mg/dl Total Bilirubin (0.2-1) mg/dl Direct Bilirubin (0-0.2) mg/dl AST (15-37) U/L ALT (12-78) U/L Alkaline Phosphatase (45-117) U/L Total Creatine Kinase (26-192) U/L Troponin I (0-0.045) ng/ml Total Protein (6.4-8.2) gm/dl Albumin (3.4-5.0) gm/dl Lipase (73-393) U/L Procalcitonin (0-0.5) ng/ml Urine Color Urine Appearance (Clear) Urine pH (4.5-7.5) Ur Specific [place] (1.000-1.030) Urine Protein (Negative) Urine Glucose (UA) (Negative) Urine Ketones (Negative) Urine Blood (Negative) Urine Nitrite (Negative) Urine Bilirubin (Negative) Urine Urobilinogen (Negative) Ur Leukocyte Esterase (Negative) COVID-19 Eval Order SARS-CoV-2 (PCR) (Negative) 04/23/21 04/23/21 04/23/21 Range/Units 12:39 16:33 20:10 WBC (4.8-10.8) K/uL RBC (4.2-5.4) M/uL Hgb (12.0-16.0) g/dL Hct (37-47) % MCV (80-100) fL MCH (25-34) pg MCHC (32-36) g/dL RDW Std Deviation (36.4-46.3) fL RDW Coeff of Ratna (11.5-14.5) % Plt Count (130-400) K/uL MPV (7.4-10.4) fL Immature Gran % (Auto) % Neut % (Auto) % Lymph % (Auto) % [place] % (Auto) % Eos % (Auto) % Baso % (Auto) % Neut # (Auto) (1.4-6.5) K/uL Lymph # (Auto) (1.2-3.4) K/uL [place] # (Auto) (0.11-0.59) K/uL Eos # (Auto) (0-0.5) K/uL Baso # (Auto) (0-0.2) K/uL Immature Gran # (Auto) (0.00-0.02) K/uL PT (9.0-12.0) Seconds INR (0.9-1.1) Sodium (136-145) mmol/L Potassium (3.5-5.1) mmol/L Chloride (98-107) mmol/L Carbon Dioxide (21-32) mmol/L Anion Gap (3-11) BUN (7-18) mg/dl Creatinine (0.6-1.2) mg/dl Est Cr Clr Drug Dosing Est GFR ( Amer) ml/min Est GFR (Non-Af Amer) ml/min BUN/Creatinine Ratio (10-20) Glucose (70-99) mg/dl POC Glucose 88 96 (70-99) mg/dl Lactate 1.6 (0.4-2.0) mmol/L Calcium (8.5-10.1) mg/dl Magnesium (1.8-2.4) mg/dl Total Bilirubin (0.2-1) mg/dl Direct Bilirubin (0-0.2) mg/dl AST (15-37) U/L ALT (12-78) U/L Alkaline Phosphatase (45-117) U/L Total Creatine Kinase (26-192) U/L Troponin I (0-0.045) ng/ml Total Protein (6.4-8.2) gm/dl Albumin (3.4-5.0) gm/dl Lipase (73-393) U/L Procalcitonin (0-0.5) ng/ml Urine Color Urine Appearance (Clear) Urine pH (4.5-7.5) Ur Specific [place] (1.000-1.030) Urine Protein (Negative) Urine Glucose (UA) (Negative) Urine Ketones (Negative) Urine Blood (Negative) Urine Nitrite (Negative) Urine Bilirubin (Negative) Urine Urobilinogen (Negative) Ur Leukocyte Esterase (Negative) COVID-19 Eval Order SARS-CoV-2 (PCR) (Negative) 04/24/21 04/24/21 04/24/21 Range/Units 06:45 06:45 06:45 WBC 5.20 (4.8-10.8) K/uL RBC 5.02 (4.2-5.4) M/uL Hgb 13.0 (12.0-16.0) g/dL Hct 40.5 (37-47) % MCV 80.7 (80-100) fL MCH 25.9 (25-34) pg MCHC 32.1 (32-36) g/dL RDW Std Deviation 57.4 H (36.4-46.3) fL RDW Coeff of Ratna 19.2 H (11.5-14.5) % Plt Count 199 (130-400) K/uL MPV 10.4 (7.4-10.4) fL Immature Gran % (Auto) 0.2 % Neut % (Auto) 63.5 % Lymph % (Auto) 22.3 % [place] % (Auto) 11.3 % Eos % (Auto) 2.1 % Baso % (Auto) 0.6 % Neut # (Auto) 3.30 (1.4-6.5) K/uL Lymph # (Auto) 1.16 L (1.2-3.4) K/uL [place] # (Auto) 0.59 (0.11-0.59) K/uL Eos # (Auto) 0.11 (0-0.5) K/uL Baso # (Auto) 0.03 (0-0.2) K/uL Immature Gran # (Auto) 0.01 (0.00-0.02) K/uL PT 13.6 H (9.0-12.0) Seconds INR 1.4 H (0.9-1.1) Sodium 141 (136-145) mmol/L Potassium 3.9 (3.5-5.1) mmol/L Chloride 108 H (98-107) mmol/L Carbon Dioxide 26 (21-32) mmol/L Anion Gap 7.0 (3-11) BUN 16 (7-18) mg/dl Creatinine 0.91 D (0.6-1.2) mg/dl Est Cr Clr Drug Dosing 59.9 Est GFR ( Amer) 72.5 ml/min Est GFR (Non-Af Amer) 62.6 ml/min BUN/Creatinine Ratio 17.1 (10-20) Glucose 92 (70-99) mg/dl POC Glucose (70-99) mg/dl Lactate (0.4-2.0) mmol/L Calcium 8.5 (8.5-10.1) mg/dl Magnesium 2.3 (1.8-2.4) mg/dl Total Bilirubin (0.2-1) mg/dl Direct Bilirubin (0-0.2) mg/dl AST (15-37) U/L ALT (12-78) U/L Alkaline Phosphatase (45-117) U/L Total Creatine Kinase 184 (26-192) U/L Troponin I (0-0.045) ng/ml Total Protein (6.4-8.2) gm/dl Albumin (3.4-5.0) gm/dl Lipase (73-393) U/L Procalcitonin (0-0.5) ng/ml Urine Color Urine Appearance (Clear) Urine pH (4.5-7.5) Ur Specific [place] (1.000-1.030) Urine Protein (Negative) Urine Glucose (UA) (Negative) Urine Ketones (Negative) Urine Blood (Negative) Urine Nitrite (Negative) Urine Bilirubin (Negative) Urine Urobilinogen (Negative) Ur Leukocyte Esterase (Negative) COVID-19 Eval Order SARS-CoV-2 (PCR) (Negative) 04/24/21 Range/Units 07:44 WBC (4.8-10.8) K/uL RBC (4.2-5.4) M/uL Hgb (12.0-16.0) g/dL Hct (37-47) % MCV (80-100) fL MCH (25-34) pg MCHC (32-36) g/dL RDW Std Deviation (36.4-46.3) fL RDW Coeff of Ratna (11.5-14.5) % Plt Count (130-400) K/uL MPV (7.4-10.4) fL Immature Gran % (Auto) % Neut % (Auto) % Lymph % (Auto) % [place] % (Auto) % Eos % (Auto) % Baso % (Auto) % Neut # (Auto) (1.4-6.5) K/uL Lymph # (Auto) (1.2-3.4) K/uL [place] # (Auto) (0.11-0.59) K/uL Eos # (Auto) (0-0.5) K/uL Baso # (Auto) (0-0.2) K/uL Immature Gran # (Auto) (0.00-0.02) K/uL PT (9.0-12.0) Seconds INR (0.9-1.1) Sodium (136-145) mmol/L Potassium (3.5-5.1) mmol/L Chloride (98-107) mmol/L Carbon Dioxide (21-32) mmol/L Anion Gap (3-11) BUN (7-18) mg/dl Creatinine (0.6-1.2) mg/dl Est Cr Clr Drug Dosing Est GFR ( Amer) ml/min Est GFR (Non-Af Amer) ml/min BUN/Creatinine Ratio (10-20) Glucose (70-99) mg/dl POC Glucose 94 (70-99) mg/dl Lactate (0.4-2.0) mmol/L Calcium (8.5-10.1) mg/dl Magnesium (1.8-2.4) mg/dl Total Bilirubin (0.2-1) mg/dl Direct Bilirubin (0-0.2) mg/dl AST (15-37) U/L ALT (12-78) U/L Alkaline Phosphatase (45-117) U/L Total Creatine Kinase (26-192) U/L Troponin I (0-0.045) ng/ml Total Protein (6.4-8.2) gm/dl Albumin (3.4-5.0) gm/dl Lipase (73-393) U/L Procalcitonin (0-0.5) ng/ml Urine Color Urine Appearance (Clear) Urine pH (4.5-7.5) Ur Specific [place] (1.000-1.030) Urine Protein (Negative) Urine Glucose (UA) (Negative) Urine Ketones (Negative) Urine Blood (Negative) Urine Nitrite (Negative) Urine Bilirubin (Negative) Urine Urobilinogen (Negative) Ur Leukocyte Esterase (Negative) COVID-19 Eval Order SARS-CoV-2 (PCR) (Negative) Administered Medications Acetaminophen (Acetaminophen 325 Mg Tab) 650 mg PO Q4H PRN PRN Reason: FEVER/PAIN Stop: 05/23/21 04:49 Last Admin: 04/23/21 20:50 Dose: 650 mg Documented by: [id number] Carbidopa/Levodopa (Carbidopa/Levodopa 25-250 1 Ea Tab) 1 tab PO QID@0900,1200,1600,2100 [facility] Stop: 05/23/21 08:59 Last Admin: 04/24/21 12:32 Dose: 1 tab Documented by: [id number] Admin: 04/24/21 09:04 Dose: Not Given Documented by: [id number] Admin: 04/23/21 20:50 Dose: 1 tab Documented by: [id number] Admin: 04/23/21 16:55 Dose: 1 tab Documented by: [id number] Admin: 04/23/21 12:22 Dose: 1 tab Documented by: [id number] Admin: 04/23/21 08:44 Dose: 1 tab Documented by: [id number] Diltiazem HCl (Diltiazem Hcl 120 Mg Capcr) 120 mg PO QAM [facility] Stop: 05/23/21 08:59 Last Admin: 04/24/21 12:32 Dose: 120 mg Documented by: [id number] Admin: 04/23/21 09:10 Dose: Not Given Documented by: [id number] Entacapone (Entacapone 200 Mg Tab) 200 mg PO TID@0900,1200,1600 [facility] Stop: 05/23/21 07:59 Last Admin: 04/24/21 12:33 Dose: 200 mg Documented by: [id number] Admin: 04/24/21 09:10 Dose: Not Given Documented by: [id number] Admin: 04/23/21 16:55 Dose: 200 mg Documented by: [id number] Admin: 04/23/21 12:22 Dose: 200 mg Documented by: [id number] Admin: 04/23/21 08:44 Dose: 200 mg Documented by: [id number] Escitalopram Oxalate (Escitalopram Oxalate 10 Mg Tab) 10 mg PO QAM [facility] Stop: 05/23/21 08:59 Last Admin: 04/24/21 09:05 Dose: Not Given Documented by: [id number] Admin: 04/23/21 08:44 Dose: 10 mg Documented by: [id number] Hydromorphone HCl (Hydromorphone Inj 0.5 Mg/0.5 Ml Syr) 0.25 mg IV Q6H PRN PRN Reason: Pain Stop: 05/07/21 04:49 Last Admin: 04/23/21 10:39 Dose: 0.25 mg Documented by: [id number] Ceftriaxone Sodium 2,000 mg/ (Dextrose) 70 mls @ 100 mls/hr IV DAILY [facility]; Protocol Stop: 06/04/21 14:29 Last Infusion: 04/24/21 10:28 Dose: 0 mls/hr Documented by: [id number] Admin: 04/24/21 09:10 Dose: 100 mls/hr Documented by: [id number] Infusion: 04/23/21 16:17 Dose: 0 mls/hr Documented by: [id number] Admin: 04/23/21 15:35 Dose: 100 mls/hr Documented by: [id number] Insulin Aspart (Insulin Aspart 100 Units/Ml 3 Ml Pen) 0 units SC ACHS [facility] Stop: 05/23/21 07:29 Last Admin: 04/24/21 12:35 Dose: Not Given Documented by: [id number] Admin: 04/24/21 09:09 Dose: Not Given Documented by: [id number] Admin: 04/23/21 22:25 Dose: Not Given Documented by: [id number] Admin: 04/23/21 18:29 Dose: 1 units Documented by: [id number] Cosigned by: [id number] Admin: 04/23/21 12:02 Dose: Not Given Documented by: [id number] Admin: 04/23/21 08:51 Dose: Not Given Documented by: [id number] Lidocaine (Lidocaine 5% 1 Patch) 1 patch TD QAM [facility] Stop: 05/23/21 05:59 Last Admin: 04/24/21 09:11 Dose: 1 patch Documented by: [id number] Admin: 04/23/21 06:05 Dose: 1 patch Documented by: [id number] Lorazepam (Lorazepam 0.5 Mg Tab) 0.5 mg PO BID [facility] Stop: 05/23/21 08:59 Last Admin: 04/24/21 09:05 Dose: Not Given Documented by: [id number] Admin: 04/23/21 20:50 Dose: 0.5 mg Documented by: [id number] Admin: 04/23/21 12:22 Dose: 0.5 mg Documented by: [id number] Miscellaneous (Remove Lidoderm Patch) 1 ea N/A DAILY@2100 [facility] Stop: 05/23/21 20:59 Last Admin: 04/23/21 20:50 Dose: 1 ea Documented by: [id number] Discontinued Medications Gadobutrol (Gadobutrol 30ml Vial) 9.5 ml IV ONCE ONE Stop: 04/23/21 11:10 Last Admin: 04/23/21 11:09 Dose: 9.5 ml Documented by: [id number] Hydralazine HCl (Hydralazine Hcl 20 Mg/Ml Vial) 10 mg IV NOW STA Stop: 04/23/21 09:06 Last Admin: 04/23/21 09:20 Dose: 10 mg Documented by: [id number] Sodium Chloride (Nss 1000ml) 1,000 mls @ 999 mls/hr IV .Q1H1M ONE Stop: 04/23/21 02:00 Last Infusion: 04/23/21 03:12 Dose: 0 mls/hr Documented by: [id number] Admin: 04/23/21 02:11 Dose: 999 mls/hr Documented by: [id number] Sodium Chloride (Nss 1000ml) 1,000 mls @ 999 mls/hr IV .Q1H1M ONE Stop: 04/23/21 03:13 Last Infusion: 04/23/21 05:16 Dose: 0 mls/hr Documented by: [id number] Admin: 04/23/21 03:09 Dose: 999 mls/hr Documented by: [id number] Cefepime HCl (Maxipime) 2,000 mg in 20 mls @ 5 mls/min IV NOW STA Stop: 04/23/21 02:16 Last Admin: 04/23/21 02:33 Dose: 5 mls/min Documented by: [id number] Lactated Ringer's (Lr) 1,000 mls @ 80 mls/hr IV .[id number] ONE Stop: 04/23/21 15:35 Last Infusion: 04/23/21 16:15 Dose: 0 mls/hr Documented by: [id number] Admin: 04/23/21 04:33 Dose: 80 mls/hr Documented by: [id number] Magnesium Sulfate/Dextrose (Magnesium Sulfate / D5w) 1 gm in 100 mls @ 50 mls/hr IV ONE ONE Stop: 04/23/21 07:29 Last Admin: 04/23/21 05:15 Dose: Not Given Documented by: [id number] Magnesium Sulfate/Dextrose (Magnesium Sulfate / D5w) 1 gm in 100 mls @ 50 mls/hr IV ONE ONE Stop: 04/23/21 06:49 Last Admin: 04/23/21 05:36 Dose: Not Given Documented by: [id number] Vancomycin HCl 2,250 mg/ (Sodium Chloride) 545 mls @ 200 mls/hr IV NOW ONE Stop: 04/23/21 16:58 Last Infusion: 04/23/21 17:22 Dose: 0 mls/hr Documented by: [id number] Admin: 04/23/21 14:49 Dose: 200 mls/hr Documented by: [id number] Vancomycin HCl 1,250 mg/ (Sodium Chloride) 275 mls @ 200 mls/hr IV Q18H CRISTAL Stop: 04/24/21 11:00 Last Infusion: 04/24/21 11:50 Dose: 0 mls/hr Documented by: [id number] Admin: 04/24/21 09:10 Dose: 200 mls/hr Documented by: [id number] Phytonadione 5 mg/ Sodium (Chloride) 50.5 mls @ 101 mls/hr IV 1430 ONE Stop: 04/23/21 14:59 Last Infusion: 04/23/21 15:21 Dose: 0 mls/hr Documented by: [id number] Admin: 04/23/21 14:48 Dose: 101 mls/hr Documented by: [id number] Magnesium Sulfate/Dextrose (Magnesium Sulfate 1gm / D5w Bag) Confirm Administered Dose 2 gm IV .STK-MED ONE Stop: 04/23/21 05:09 Last Admin: 04/23/21 05:15 Dose: 2 gm Documented by: [id number] Metoprolol Succinate (Metoprolol Succ 25mg Ext Rel Tab) 12.5 mg PO NOW STA Stop: 04/23/21 04:07 Last Admin: 04/23/21 04:33 Dose: 12.5 mg Documented by: [id number] Metoprolol Succinate (Metoprolol Succ 25mg Ext Rel Tab) 12.5 mg PO QAM CRISTAL Stop: 05/24/21 08:59 Last Admin: 04/24/21 12:33 Dose: 12.5 mg Documented by: [id number] Morphine Sulfate (Morphine Sulfate 4 Mg/Ml 1 Ml Carp\Vial) 4 mg IV NOW STA Stop: 04/23/21 01:01 Last Admin: 04/23/21 02:11 Dose: 4 mg Documented by: [id number] Ondansetron HCl (Ondansetron Inj 2 Mg/Ml 2 Ml Vial) 4 mg IV NOW STA Stop: 04/23/21 01:01 Last Admin: 04/23/21 02:11 Dose: 4 mg Documented by: [id number] Discharge Plan Visit Data Chief Complaint: Urinary Symptoms Stated Complaint: CHRONIC BACK PAIN ED Provider: Delfino Mg Discharge Problem: Acidosis, lactic, Illness, Low back pain Patient Disposition: Admitted As Inpatient Discharge Instructions Interventions: ED Discharge Assessment Last Done: 04/23/21 04:49 Discharge Problem: Low back pain Qualifiers: Chronicity: acute Back pain laterality: bilateral Sciatica presence: without sciatica Qualified Code(s): M54.50 - Low back pain, unspecified
[2021-04-23 01:33] LABS: Basophils # (auto) 0.02 K/uL (0-0.2); Basophils % (auto) 0.3 %; Eosinophils # (auto) 0.04 K/uL (0-0.5); Eosinophils % (auto) 0.6 %; Hematocrit (blood only) 39.5 % (37-47); Hemoglobin 13.1 g/dL (12.0-16.0); Immature Granulocytes # (auto) 0.01 K/uL (0.00-0.02); Immature Granulocytes % (auto) 0.2 %; Lymphocytes # (auto) 0.95 K/uL (1.2-3.4); Lymphocytes % (auto) 14.7 %; Mean Corpuscular Hemoglobin 26.3 pg (25-34); Mean Corpuscular Hgb Conc 33.2 g/dL (32-36); Mean Corpuscular Volume 79.3 fL (80-100); Mean Platelet Volume 10.4 fL (7.4-10.4); Monocytes # (auto) 0.82 K/uL (0.11-0.59); Monocytes % (auto) 12.7 %; Neutrophils # (auto) 4.64 K/uL (1.4-6.5); Neutrophils % (auto) 71.5 %; Platelet Count 197 K/uL (130-400); RDW Coefficient of Variation 19.2 % (11.5-14.5); RDW Standard Deviation 56.3 fL (36.4-46.3); Red Blood Count 4.98 M/uL (4.2-5.4); White Blood Count 6.48 K/uL (4.8-10.8)
[2021-04-23 01:52] LABS: Alanine Aminotransferase 17 U/L (12-78); Albumin Level 2.8 gm/dl (3.4-5.0); Aspartate Aminotransferase 41 U/L (15-37); BUN Creatinine Ratio 20.1 (10-20); Bilirubin Direct 0.3 mg/dl (0-0.2); Blood Urea Nitrogen 27 mg/dl (7-18); Calcium 9.2 mg/dl (8.5-10.1); Carbon Dioxide 29 mmol/L (21-32); Chloride 110 mmol/L (98-107); Est GFR (African American) 44.6 ml/min; Est GFR (Non-African American) 38.5 ml/min; Glucose 107 mg/dl (70-99); Lipase 202 U/L (73-393); Magnesium 1.6 mg/dl (1.8-2.4); Potassium 3.5 mmol/L (3.5-5.1); Sodium 140 mmol/L (136-145)
[2021-04-23 01:55] LABS: Alkaline Phosphatase 92 U/L (45-117); Bilirubin,Total 0.8 mg/dl (0.2-1); Creatine Kinase 294 U/L (26-192); Total Protein 6.5 gm/dl (6.4-8.2); Troponin I < 0.015 ng/ml (0-0.045)
[2021-04-23] MEDS ORDERED: CEFEPIME 2,000 MG/20 ML VIAL IV STA (02:13)
[2021-04-23 02:25] LABS: Appearance Urine Clear (Clear); Bilirubin Urine Negative (Negative); Blood Urine Negative (Negative); Color Urine Dark Yellow; Glucose Urine UA Negative (Negative); Ketones Urine Trace (Negative); Leukocyte Esterase Urine Negative (Negative); Nitrite Urine Negative (Negative); Protein Urine Negative (Negative); Specific Gravity Urine 1.018 (1.000-1.030); Urobilinogen Urine Negative (Negative)
[2021-04-23] MEDS ORDERED: LACTATED RINGER'S 1,000 ML IV ONE (03:06)
[2021-04-23 03:31] LABS: INR 3.5 (0.9-1.1); Prothrombin Time 32.5 Seconds (9.0-12.0)
--- NOTE | 2021-04-23 04:01 | History & Physical Report ---
Date of Service April 23, 2021 Assessment & Plan (1) Back pain: Plan: With radiculopathy symptoms hx closed sacral fracture status post surgery (05/2020) With abnormal CT initial read rule out osteomyelitis No overt sepsis for now HTN, elevated secondary to discomfort ARF secondary to illness, clinical dehydration with note of ketonuria AF on Coumadin, rate controlled, INR slightly supratherapeutic DM 2 diet-controlled, well-controlled as of recent outpatient hemoglobin A1c of 6.3, December 2020 Parkinson's disease, stable on regimen OBS Medical telemetry given BP elevation Analgesia, facilitate home BP meds Lumbar spine MRI CS, hold off on antibiotics until MRI resulted Orthopedic spine consult RE back pain, history surgery Monitor creatinine response to IVF, hold ARB until creatinine back to baseline ISS BG goal 110-140 DVT prophylaxis. Coumadin INR goal between 2 and 3 if no procedural intervention Full code Patient requests for her brother to be updated of plan of care. Mr. Torrey GrimmJr amy. thru contact #[phone]. Text document was generated using [email or web address] voice recognition software. It may contain grammatical or spelling errors. Kindly contact undersigned for clarification of any documentation item in question. History of Present Illness Chief Complaint: Worsening low back pain Primary Care Provider: Titi Baez DO History obtained from patient and records. Medical history significant for PAF on Coumadin, hypertension, hyperlipidemia, Parkinson's disease, DM 2 diet-controlled, hx closed sacral fracture status post surgery (05/2020). Last confinement September 2020 for other dysfunction with recurrent falls, rhabdomyolysis. Patient discharged to rehab initially then back to her home. Patient seen at PCPs office last week of February 2021 for follow-up visit. Patient having more trouble moving around at home and weak legs. Patient declined home health PT and detention placement on multiple occasions as per documentation. Last month, patient noted achy low back pain symptoms with some radiation to the left lower leg. No fever, no chills, no unusual weakness or incontinence. Patient declined ER consultation as per outpatient notes. Worsening discomfort over the next few weeks with fever, chills, weakness and fatigue. Back pain worse with movement and better with rest. Patient unable to stand due to pain. Patient denies chest pain, S OB. Cefepime administered at the ER. 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 Allergies Allergy/AdvReac Type Severity Reaction Status Date / Time pramipexole AdvReac Intermediate hallucinati Verified 04/23/21 01:20 ons Home Medications Medication Instructions Recorded Confirmed Type atorvastatin 40 mg tablet (Lipitor) 80 mg PO QPM 01/21/20 04/23/21 History calcitriol 0.5 mcg capsule 0.5 mcg PO QDL 01/21/20 04/23/21 History cholecalciferol (vitamin D3) 25 50 mcg PO BID 01/21/20 04/23/21 History mcg (1,000 unit) tablet (Vitamin D3) entacapone 200 mg tablet (Comtan) 200 mg PO TID 01/21/20 04/23/21 History escitalopram oxalate 10 mg tablet 10 mg PO QAM 01/21/20 04/23/21 History (Lexapro) lorazepam 0.5 mg tablet (Ativan) 0.5 mg PO BID 01/21/20 04/23/21 History raloxifene 60 mg tablet 60 mg PO QDL 01/21/20 04/23/21 History valsartan 80 mg tablet (Diovan) 80 mg PO QDL 01/21/20 04/23/21 History docusate sodium 100 mg capsule 200 mg PO DAILY PRN 09/12/20 04/23/21 History (Col-Rite) polyethylene glycol 3350 17 gram 17 g PO BID PRN 09/14/20 04/23/21 History oral powder packet (Miralax) acetaminophen 325 mg tablet 650 mg PO Q4H PRN 04/23/21 04/23/21 History (Tylenol) carbidopa 25 mg-levodopa 250 mg 1 tab PO QID 04/23/21 04/23/21 History tablet diltiazem HCl 120 mg 120 mg PO QAM 04/23/21 04/23/21 History capsule,extended release 24 hr iron,carbonyl 65 mg-vitamin C 125 1 tab PO DAILY 04/23/21 04/23/21 History mg tablet,delayed release (Vitron-C) metoprolol succinate 25 mg 12.5 mg PO QAM 04/23/21 04/23/21 History tablet,extended release 24 hr nystatin 100,000 unit/gram topical 1 applic TOPICAL TID 04/23/21 04/23/21 History powder warfarin 3 mg tablet See Rx Instructions .ROUTE .COMPLEX 04/23/21 04/23/21 History Past Med/Surg History Medical History (Updated 04/23/21 @ 05:42 by Gamal Marie MD) Acute UTI (urinary tract infection) Anxiety Atrial fibrillation paroxysmal on warfarin CKD (chronic kidney disease) Contusion of multiple sites Depression DM type 2 (diabetes mellitus, type 2) diet controlled Fall Fall from ground level Hyperlipidemia Hypertension Obesity Osteoarthritis Parkinsons disease Rhabdomyolysis Urinary incontinence Vertigo Surgical History History of cholecystectomy lap cholecystectomy: 01/26/20: Grade 1 view, MAC#3, ETT 7 at [facility] History of incision and drainage shoulder> PT UNSURE OF DETAILS Hx of breast biopsy LEFT Hx of colonoscopy Family History Mother Atrial fibrillation Father Myocardial infarction Social History Smoking Status: Never smoker Second Hand Exposure: No; Hx Alcohol Use: No Hx Substance Use: No Preferred Language: Greek Communication Ability: Effective 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 Service Required: No Beliefs That Will Affect Care: None marital status: / Current Living Situation: Alone Current Living Situation Comment: Lives in a house Other Information That Helps Us Care for You: No Feels Safe at Home: Yes Safety Concerns: Feels Safe At This Time Assistive Devices: Cane, Glasses and Walker Review of Systems Review of Systems: As per HPI, all 10 systems reviewed, all other ROS negative Physical Exam Physical Exam: GENERAL: Slightly uncomfortable, masklike facies, no respiratory distress, obese SKIN: Normal color, warm HEENT: Bespectacled, pink palpebral conjunctivae, no ptosis, dry buccal mucosa NECK : Supple, short neck, no tenderness CHEST : CTA, no tenderness HEART : Irregular, systolic murmur ABDOMEN: Some distention, nontender BACK : Low back tenderness, positive straight leg raise test EXTREMITIES : Minimal LE swelling, no LE tenderness, no other conspicuous deformities noted NEUROLOGIC : Coherent, no facial asymmetry, gait and stance not assessed Results & Data Results & Data ([facility]) Vital Signs (Past 12 Hours) Vital Signs Temp Pulse Pulse BP BP Pulse Ox 04/23/21 03:01 77 145/86 H 96 04/23/21 01:11 37.1 C 89 82 141/86 H 141/86 H 93 Laboratory Results Laboratory Results WBC 6.48 K/uL (4.8-10.8) 04/23/21 01:18 RBC 4.98 M/uL (4.2-5.4) 04/23/21 01:18 Hgb 13.1 g/dL (12.0-16.0) 04/23/21 01:18 Hct 39.5 % (37-47) 04/23/21 01:18 MCV 79.3 fL (80-100) L 04/23/21 01:18 MCH 26.3 pg (25-34) 04/23/21 01:18 MCHC 33.2 g/dL (32-36) 04/23/21 01:18 RDW Std Deviation 56.3 fL (36.4-46.3) H 04/23/21 01:18 RDW Coeff of Ratna 19.2 % (11.5-14.5) H 04/23/21 01:18 Plt Count 197 K/uL (130-400) 04/23/21 01:18 MPV 10.4 fL (7.4-10.4) 04/23/21 01:18 Immature Gran % (Auto) 0.2 % 04/23/21 01:18 Neut % (Auto) 71.5 % 04/23/21 01:18 Lymph % (Auto) 14.7 % 04/23/21 01:18 [place] % (Auto) 12.7 % 04/23/21 01:18 Eos % (Auto) 0.6 % 04/23/21 01:18 Baso % (Auto) 0.3 % 04/23/21 01:18 Neut # (Auto) 4.64 K/uL (1.4-6.5) 04/23/21 01:18 Lymph # (Auto) 0.95 K/uL (1.2-3.4) L 04/23/21 01:18 [place] # (Auto) 0.82 K/uL (0.11-0.59) H 04/23/21 01:18 Eos # (Auto) 0.04 K/uL (0-0.5) 04/23/21 01:18 Baso # (Auto) 0.02 K/uL (0-0.2) 04/23/21 01:18 Immature Gran # (Auto) 0.01 K/uL (0.00-0.02) 04/23/21 01:18 PT 32.5 Seconds (9.0-12.0) H 04/23/21 01:18 INR 3.5 (0.9-1.1) H 04/23/21 01:18 Sodium 140 mmol/L (136-145) 04/23/21 01:18 Potassium 3.5 mmol/L (3.5-5.1) 04/23/21 01:18 Chloride 110 mmol/L (98-107) H 04/23/21 01:18 Carbon Dioxide 29 mmol/L (21-32) 04/23/21 01:18 Anion Gap 1.0 (3-11) L 04/23/21 01:18 BUN 27 mg/dl (7-18) H 04/23/21 01:18 Creatinine 1.36 mg/dl (0.6-1.2) H 04/23/21 01:18 Est Cr Clr Drug Dosing Not Reportable 04/23/21 01:18 Est GFR ( Amer) 44.6 ml/min 04/23/21 01:18 Est GFR (Non-Af Amer) 38.5 ml/min 04/23/21 01:18 BUN/Creatinine Ratio 20.1 (10-20) H 04/23/21 01:18 Glucose 107 mg/dl (70-99) H 04/23/21 01:18 Lactate 2.7 mmol/L (0.4-2.0) H* 04/23/21 01:18 Calcium 9.2 mg/dl (8.5-10.1) 04/23/21 01:18 Magnesium 1.6 mg/dl (1.8-2.4) L 04/23/21 01:18 Total Bilirubin 0.8 mg/dl (0.2-1) 04/23/21 01:18 Direct Bilirubin 0.3 mg/dl (0-0.2) H 04/23/21 01:18 AST 41 U/L (15-37) H 04/23/21 01:18 ALT 17 U/L (12-78) 04/23/21 01:18 Alkaline Phosphatase 92 U/L (45-117) 04/23/21 01:18 Total Creatine Kinase 294 U/L (26-192) H 04/23/21 01:18 Troponin I < 0.015 ng/ml (0-0.045) 04/23/21 01:18 Total Protein 6.5 gm/dl (6.4-8.2) 04/23/21 01:18 Albumin 2.8 gm/dl (3.4-5.0) L 04/23/21 01:18 Lipase 202 U/L (73-393) 04/23/21 01:18 Procalcitonin < 0.05 ng/ml (0-0.5) 04/23/21 01:18 Urine Color Dark Yellow 04/23/21 02:15 Urine Appearance Clear (Clear) 04/23/21 02:15 Urine pH 6.0 (4.5-7.5) 04/23/21 02:15 Ur Specific [place] 1.018 (1.000-1.030) 04/23/21 02:15 Urine Protein Negative (Negative) 04/23/21 02:15 Urine Glucose (UA) Negative (Negative) 04/23/21 02:15 Urine Ketones Trace (Negative) H 04/23/21 02:15 Urine Blood Negative (Negative) 04/23/21 02:15 Urine Nitrite Negative (Negative) 04/23/21 02:15 Urine Bilirubin Negative (Negative) 04/23/21 02:15 Urine Urobilinogen Negative (Negative) 04/23/21 02:15 Ur Leukocyte Esterase Negative (Negative) 04/23/21 02:15 COVID-19 Eval Order Covid19 at [facility] 04/23/21 02:31 SARS-CoV-2 (PCR) NEGATIVE (Negative) 04/23/21 02:[address] abdomen pelvis initial read: Severe degenerative spondylosis. Status post L4 through biiliac instrumented fusion. No hardware complication. Multilevel spinal canal and foraminal stenosiswithin the lowthoracic and lumbar spine. If there is concern for infection consider MRI with contrast. Chest x-ray as per my interpretation atelectasis, cardiomegaly, elevated right hemidiaphragm EKG as per my interpretation :Rate 70, A. fib, normal axis, T wave abnormalities inferior leads Code Status & VTE Plan VTE Prophylaxis Plan VTE Prophylaxis will be ordered: Yes
[2021-04-23] MEDS ORDERED: METOPROLOL SUCC 25MG EXT REL TAB PO STA (04:06)
[2021-04-23] MEDS ORDERED: GLUCOSE 10 TABS/TUBE PO PRN (04:50)
[2021-04-23] MEDS ORDERED: DOCUSATE SODIUM 100 MG CAP PO PRN (04:50)
[2021-04-23] MEDS ORDERED: oxyCODONE HCL IR 5 MG TAB (IMMEDIATE RELEASE) PO PRN (04:50)
[2021-04-23] MEDS ORDERED: ACETAMINOPHEN 325 MG TAB PO PRN ×2 (04:50)
[2021-04-23] MEDS ORDERED: CARBOHYDRATES FOR HYPOGLYCEMIA PO PRN (04:50)
[2021-04-23] MEDS ORDERED: PROMETHAZINE HCL 12.5 MG in SODIUM CHLORIDE 0.9% 50 ML IV PRN (04:50)
[2021-04-23] MEDS ORDERED: MAGNESIUM SULFATE / D5W 1 GM/100 ML BAG IV ONE ×2 (04:50→05:30)
[2021-04-23] MEDS ORDERED: HYDROmorphone INJ 0.5 MG/0.5 ML SYR IV PRN (04:50)
[2021-04-23] MEDS ORDERED: GLUCOSE 40% GEL 15 GM TUBE PO PRN (04:50)
[2021-04-23] MEDS ORDERED: POLYETHYLENE (MIRALAX) 17 GM PACK PO PRN (04:50)
[2021-04-23] MEDS ORDERED: GLUCAGON FOR INJ 1 MG VIAL SQ PRN (04:50)
[2021-04-23] MEDS ORDERED: DEXTROSE 50% 50 ML SYRINGE IV PRN (04:50)
[2021-04-23] MEDS ORDERED: MAGNESIUM SULFATE 1GM / D5W BAG IV ONE (05:08)
[2021-04-23] MEDS: LIDOCAINE 5% 1 PATCH TD SCH (06:05)
[2021-04-23] MEDS ORDERED: ENTACAPONE 200 MG TAB PO SCH (08:00)
--- NOTE | 2021-04-23 08:34 | CT Scan Report ---
CT abd pelvis wo con, CT lumbar spine wo con CLINICAL INDICATION: [place] ^low back pain, sepsis. TECHNIQUE: Helical axial images of the abdomen and pelvis and lumbar spine were obtained. Automated d ose lowering techniques and/or adjustment according to patient size were utilized for this exam. Thi s exam was performed without intravenous contrast. COMPARISON: None available at the time of this dictation. FINDINGS: Lower chest: Bibasilar atelectasis is seen. Cardiomegaly is seen with biatrial enlargement. Liver: Subcentimeter hypodensity in the right lobe liver cyst characterize. Gallbladder and biliary tree: Patient is status post cholecystectomy. Physiologic prominence of the b iliary ducts is noted. Pancreas: Unremarkable, no focal lesions. Spleen: Splenule is incidentally noted. Adrenals: Nodularity of the right adrenal gland is seen. Kidneys and ureters: Bilateral renal cysts are seen. Bladder: Unremarkable. Reproductive organs: Unremarkable. Bowel: Diverticulosis is seen without evidence of diverticulitis. The appendix is normal. Lymph nodes Retroperitoneal: Unremarkable. Mesenteric: Unremarkable. Pelvic: Unremarkable. Peritoneum: Normal Vessels: Atherosclerotic calcifications are seen. Abdominal wall: A fat-containing umbilical hernia is seen. Bones: Posterior fixation hardware is seen spanning L4 S1. Multilevel degenerative changes are seen, however there is no evidence of acute fracture, perihardware lucency, or hardware fracture. IMPRESSION: No acute abnormality and no acute fractures are seen. If there is concern for lumbar vertebral infect ion, MRI and/or 3 phase bone scan can be performed. ACT 112: Negative or not required by law. Electronically signed by: Nic Burton M.D. 04/23/2021 8:32 AM
[2021-04-23] MEDS: ESCITALOPRAM OXALATE 10 MG TAB PO SCH (08:44)
[2021-04-23] MEDS: CARBIDOPA/LEVODOPA 25-250 1 EA TAB PO SCH ×4 (08:44→20:50)
[2021-04-23] MEDS: ENTACAPONE 200 MG TAB PO SCH ×3 (08:44→16:55)
[2021-04-23] MEDS: INSULIN ASPART 100 UNITS/ML 3 ML PEN SC SCH ×4 (08:51→22:25)
[2021-04-23] MEDS ORDERED: NITROGLYCERIN 2% OINTMENT 30GM TUBE EXT STA (09:04)
[2021-04-23] MEDS ORDERED: hydrALAZINE HCL 20 MG/ML VIAL IV STA (09:05)
[2021-04-23] MEDS: dilTIAZem HCL 120 MG CAPCR PO SCH (09:10)
--- NOTE | 2021-04-23 09:24 | XRay Report ---
XR chest 1V portable INDICATION: Sepsis. TECHNIQUE: Single frontal radiograph of the chest was obtained. Comparison: Comparison is made to chest one view 09/14/2020 FINDINGS: No lines and tubes are seen. The cardiomediastinal silhouette is normal. Lungs are underinflated and atelectasis versus scarring is seen in the left lung base. No evidence of pleural effusion or pneumot horax. IMPRESSION: No acute chest disease. ACT 112: Negative or not required by law. Electronically signed by: Nic Burton M.D. 04/23/2021 9:23 AM
[2021-04-23] MEDS ORDERED: GADOBUTROL 30ML VIAL IV ONE (11:09)
--- NOTE | 2021-04-23 11:54 | Magnetic Resonance Report ---
LUMBAR SPINE MRI WITH AND WITHOUT CONTRAST HISTORY: back pain TECHNIQUE: Multiplanar multisequence MRI of the lumbar spine was performed both before and after the intravenous administration of contrast. COMPARISON: Lumbar spine CT 04/23/2021. FINDINGS: For the purpose of the report the L5-S1 disc space will be located on axial image 15 of 21. Mild levoscoliosis. There is posterior decompression fusion from L4 through S1 with pedicle screws an d rods. Severe disc space narrowing at T11-T12, T12-L1, L1-L2 to L2-L3. There is mild disc space narr owing at L3-L4. Mild endplate mild edema from T11 through L3. There is also mild paravertebral edema and enhancement centered at the L2-L3 level. There is fluid within the L1-L2 disc space without erosi ve changes. The conus terminates at the L2 level. No fracture or subluxation within the lumbar spine. Soft tissue edema at the laminectomy sites and subcutaneous lumbar region. This favors postoperative change. Moderate central canal narrowing at T11-T12 and T12-L1 due to the broad-based posterior disc bulges. L1-L2: Moderate to severe central canal narrowing due to the broad-based posterior disc bulge and lig amentum flavum and facet hypertrophy. There is also severe left and moderate right neural foraminal n arrowing. L2-L3: Broad-based posterior disc bulge with ligamentum and facet hypertrophy resulting in moderate t o severe central canal narrowing. L3-L4: Posterior to the L3 vertebral body there is an oval-shaped T2 hypointense, T1 heterogeneous no nenhancing oval-shaped abnormality. This is best seen on axial images 11 of 31 and sagittal image 8 o f 16. This measures approximately 16 x 12 x 9 mm and results in moderate to severe right-sided centra l canal narrowing at the L3 level. This also results in severe right-sided neural foraminal narrowing at L3-L4. There is no internal enhancement. This is nonspecific could represent an epidural hematoma , abscess, or sequestered disc fragment. There is also moderate to severe central canal narrowing at L3-L4 due to the broad-based posterior disc bulge and ligamentum flavum and facet hypertrophy. L4-L5: No significant central canal narrowing due to the posterior decompression. There is moderate b ilateral neural foraminal narrowing. L5-S1: No significant central canal narrowing due to the posterior decompression. There is severe [place] ateral neural foraminal narrowing. IMPRESSION: 1. There is a 16 x 12 x 9 mm oval shaped nonenhancing focus posterior to the L3 vertebral body at the right paracentral location. This is concerning for an epidural abscess. An epidural hematoma or less likely disc fragment could also have a similar appearance. Surgical consultation advised. This resul ts in moderate to severe right-sided central canal narrowing at the L3 level. This also results in se rhiannon right-sided neural foraminal narrowing. 2. L4-S1 posterior decompression and fusion. 3. Mild endplate edema and paravertebral edema at the L2-L3 level. There is associated endplate enhan cement and paravertebral enhancement. Therefore, this concerning for a discitis/osteomyelitis at this level. Additional areas of endplate edema and enhancement within the T11-L2 levels is nonspecific an d could be due to additional areas of osteomyelitis or chronic degenerative change. Moderate to sever e multilevel central canal and bilateral neural foraminal narrowing as described above. 4. These findings were called/faxed to the referring physician following dictation. ACT 112: Negative or not required by law. Electronically signed by: Carlos Vera M.D. 04/23/2021 11:52 AM
[2021-04-23] MEDS: LORazepam 0.5 MG TAB PO SCH ×2 (12:22→20:50)
[2021-04-23] MEDS ORDERED: VANCOMYCIN HCL 1,000 MG/270 ML BAG IV STA (13:35)
[2021-04-23] MEDS ORDERED: VANCOMYCIN CONSULT ACTIVE PRN (13:35)
[2021-04-23] MEDS ORDERED: VANCOMYCIN HCL 2,250 MG in SODIUM CHLORIDE 0.9% 500 ML IV ONE (14:15)
--- NOTE | 2021-04-23 14:21 | Pharmacy Report ---
Pharmacy Abx Dose Short Note - Date of Service April 23, 2021 - Assessment & Plan Assessment 75 year old F receiving started on vancomycin/rocephin for concern of bone/joint infection. CT of spine concerning for epidural abscess vs hematoma and also discitis/osteomyelitis. Blood cultures pending. Of note, patient with hx of sacral fracture 05/2020 Plan Vancomycin * Loading dose of 2250 mg x 1 ordered (~23 mg/kg) * Started on maintenance dose of vancomycin 1250 (~13 mg/kg/dose) iv q 18 hrs * Estimated kinetics: t1/2~18 hrs, ke~0.039, CrCl ~41 * Plan to obtain trough in next 2-3 days to ensure stable Pharmacy will continue to follow and will adjust dose/frequency as necessary. Thank you.
[2021-04-23] MEDS ORDERED: PHYTONADIONE 5 MG in SODIUM CHLORIDE 0.9% 50 ML IV ONE (14:30)
[2021-04-23] MEDS: cefTRIAXone SODIUM 2,000 MG in DEXTROSE 5% 50 ML IV SCH (15:35)
--- NOTE | 2021-04-23 16:23 | Communication Note ---
Date of Service: April 23, 2021 75-year-old female, obese with significant past medical history of hypertension, A. fib on Coumadin, diabetes type 2, Parkinson's disease, history of lumbar back surgery and has been complaining of increasing back pain which is throbbing in nature for the last 3 weeks with occasional radiation to the extremities mostly on the left. No fever and no chills and no problem with urine or bowel habit. Has bilateral leg weakness which has been worse for the last few days. Noted to have an epidural abscess as described in MRI. The case was discussed with on-call orthopedic surgeon, the patient was put at rest and n.p.o. after midnight for possible surgery tomorrow. She remains hemodynamically stable and afebrile. Her INR will be reversed with vitamin K intravenously There is no contraindication for proposed surgery Dr Aliya Kuo
--- NOTE | 2021-04-23 19:57 | Electrocardiogram Report ---
Test Reason : Blood Pressure : / mmHG Vent. Rate : 070 BPM Atrial Rate : 083 BPM P-R Int : 000 ms QRS Dur : 086 ms QT Int : 390 ms P-R-T Axes : 000 010 -06 degrees QTc Int : 421 ms Atrial fibrillation Anterior infarct (cited on or before 23-APR-2021) Abnormal ECG When compared with ECG of 14-SEP-2020 16:45, No significant change was found Confirmed by Lyle Foy ([id number]) on 04/23/2021 7:56:37 PM Referred By: REFERRED SELF Confirmed By:Lyle Foy
[2021-04-24 07:02] LABS: Basophils # (auto) 0.03 K/uL (0-0.2); Basophils % (auto) 0.6 %; Eosinophils # (auto) 0.11 K/uL (0-0.5); Eosinophils % (auto) 2.1 %; Hematocrit (blood only) 40.5 % (37-47); Immature Granulocytes # (auto) 0.01 K/uL (0.00-0.02); Immature Granulocytes % (auto) 0.2 %; Lymphocytes # (auto) 1.16 K/uL (1.2-3.4); Lymphocytes % (auto) 22.3 %; Mean Corpuscular Hemoglobin 25.9 pg (25-34); Mean Corpuscular Hgb Conc 32.1 g/dL (32-36); Mean Corpuscular Volume 80.7 fL (80-100); Mean Platelet Volume 10.4 fL (7.4-10.4); Monocytes # (auto) 0.59 K/uL (0.11-0.59); Monocytes % (auto) 11.3 %; Neutrophils % (auto) 63.5 %; Platelet Count 199 K/uL (130-400); RDW Coefficient of Variation 19.2 % (11.5-14.5); RDW Standard Deviation 57.4 fL (36.4-46.3); Red Blood Count 5.02 M/uL (4.2-5.4)
[2021-04-24 07:34] LABS: INR 1.4 (0.9-1.1); Prothrombin Time 13.6 Seconds (9.0-12.0)
[2021-04-24 07:40] LABS: BUN Creatinine Ratio 17.1 (10-20); Calcium 8.5 mg/dl (8.5-10.1); Creatinine Clr Calc Pharmacy 59.9 ml/min; Est GFR (African American) 72.5 ml/min; Est GFR (Non-African American) 62.6 ml/min; Magnesium 2.3 mg/dl (1.8-2.4); Potassium 3.9 mmol/L (3.5-5.1)
--- NOTE | 2021-04-24 07:56 | Pharmacy Report ---
Pharmacy Abx Dose Short Note - Date of Service April 24, 2021 - Assessment & Plan Assessment 75 year old F receiving started on vancomycin/rocephin for concern of bone/joint infection. CT of spine concerning for epidural abscess vs hematoma and also discitis/osteomyelitis. Blood cultures prelim with no growth. Of note, patient with hx of sacral fracture 05/2020 Plan Vancomycin * Renal function continues to improve further today to baseline, from 1.36 to 0.9 mg/dL * Therefore, plan to increase vancomycin dosing to 1500 mg iv q 18 hr to maintain estimated trough ~15-20 mcg/ml. Estimated AUC 400-600. Regimen associated with 15% toxicity * Plan to obtain level in next 1-2 days to ensure stable Pharmacy will continue to follow and will adjust dose/frequency as necessary. Thank you.
[2021-04-24] MEDS ORDERED: VANCOMYCIN HCL 1,250 MG in SODIUM CHLORIDE 0.9% 250 ML IV SCH (08:00)
[2021-04-24] MEDS: CARBIDOPA/LEVODOPA 25-250 1 EA TAB PO SCH ×4 (09:04→22:42)
[2021-04-24] MEDS: ESCITALOPRAM OXALATE 10 MG TAB PO SCH (09:05)
[2021-04-24] MEDS: LORazepam 0.5 MG TAB PO SCH ×2 (09:05→22:42)
[2021-04-24] MEDS: INSULIN ASPART 100 UNITS/ML 3 ML PEN SC SCH ×4 (09:09→21:30)
[2021-04-24] MEDS: ENTACAPONE 200 MG TAB PO SCH ×3 (09:10→17:37)
[2021-04-24] MEDS: dilTIAZem HCL 120 MG CAPCR PO SCH ×2 (09:10→12:32)
[2021-04-24] MEDS: METOPROLOL SUCC 25MG EXT REL TAB PO SCH ×2 (09:10→12:33)
[2021-04-24] MEDS: cefTRIAXone SODIUM 2,000 MG in DEXTROSE 5% 50 ML IV SCH (09:10)
[2021-04-24] MEDS: LIDOCAINE 5% 1 PATCH TD SCH (09:11)
--- NOTE | 2021-04-24 09:56 | Orthopedic Consultation ---
Date of Consultation April 24, 2021 Assessment & Plan (1) Neurogenic claudication due to lumbar spinal stenosis: Assessment lumbar spinal stenosis secondary to possible epidural abscess versus disc herniation. Plan at this time in length discussion today with the patient and her brother. MRI does have evidence of what I think is a massive disc herniation at emanating from L2-L3 on the right with significant caudal migration causing severe spinal stenosis. 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 There is evidence of fluid within the L1-L2 disc space that could be infectious in nature. Light of her significant neurologic decline inability ambulate and recommending a lumbar decompression fusion L1-L3 with possible removal of instrumentation. Risk benefits pros cons alternatives were outlined in detail. At this time her INR is 1.4 it is decreasing approp riately and she should be a candidate for surgery tomorrow. History of Present Illness Reason for Consultation: Severe back and leg pain with inability to ambulate Attending Physician: Milagro Kuo MD History of Present Illness This is a 75-year-old female presents with marked decline over the past several weeks. She denies any specific trauma fall or event. She describes pain needlelike in nature radiating across the lumbosacral junction down her legs. She was initially using a walker but now uses a wheelchair secondary to the inability to ambulate due to weakness and pain. She was admitted to the hospital underwent evaluation and there is concern for epidural abscess. At this time she is relatively comfortable and lying still in bed. Has marked difficulty with changes in position. She denies any numbness or tingling in her legs at this time. Allergies Allergy/AdvReac Type Severity Reaction Status Date / Time pramipexole AdvReac Intermediate hallucinati Verified 04/23/21 01:20 ons Home Medications Medication Instructions Recorded Confirmed Type atorvastatin 40 mg tablet (Lipitor) 80 mg PO QPM 01/21/20 04/23/21 History calcitriol 0.5 mcg capsule 0.5 mcg PO QDL 01/21/20 04/23/21 History cholecalciferol (vitamin D3) 25 50 mcg PO BID 01/21/20 04/23/21 History mcg (1,000 unit) tablet (Vitamin D3) entacapone 200 mg tablet (Comtan) 200 mg PO TID 01/21/20 04/23/21 History escitalopram oxalate 10 mg tablet 10 mg PO QAM 01/21/20 04/23/21 History (Lexapro) lorazepam 0.5 mg tablet (Ativan) 0.5 mg PO BID 01/21/20 04/23/21 History raloxifene 60 mg tablet 60 mg PO QDL 01/21/20 04/23/21 History valsartan 80 mg tablet (Diovan) 80 mg PO QDL 01/21/20 04/23/21 History docusate sodium 100 mg capsule 200 mg PO DAILY PRN 09/12/20 04/23/21 History (Col-Rite) polyethylene glycol 3350 17 gram 17 g PO BID PRN 09/14/20 04/23/21 History oral powder packet (Miralax) acetaminophen 325 mg tablet 650 mg PO Q4H PRN 04/23/21 04/23/21 History (Tylenol) carbidopa 25 mg-levodopa 250 mg 1 tab PO QID 04/23/21 04/23/21 History tablet diltiazem HCl 120 mg 120 mg PO QAM 04/23/21 04/23/21 History capsule,extended release 24 hr iron,carbonyl 65 mg-vitamin C 125 1 tab PO DAILY 04/23/21 04/23/21 History mg tablet,delayed release (Vitron-C) metoprolol succinate 25 mg 12.5 mg PO QAM 04/23/21 04/23/21 History tablet,extended release 24 hr nystatin 100,000 unit/gram topical 1 applic TOPICAL TID 04/23/21 04/23/21 History powder warfarin 3 mg tablet See Rx Instructions .ROUTE .COMPLEX 04/23/21 04/23/21 History Patient History Medical History (Updated 04/23/21 @ 05:42 by Gamal Marie MD) Acute UTI (urinary tract infection) Anxiety Atrial fibrillation paroxysmal on warfarin CKD (chronic kidney disease) Contusion of multiple sites Depression DM type 2 (diabetes mellitus, type 2) diet controlled Fall Fall from ground level Hyperlipidemia Hypertension Obesity Osteoarthritis Parkinsons disease Rhabdomyolysis Urinary incontinence Vertigo Surgical History History of cholecystectomy lap cholecystectomy: 01/26/20: Grade 1 view, MAC#3, ETT 7 at [facility] History of incision and drainage shoulder> PT UNSURE OF DETAILS Hx of breast biopsy LEFT Hx of colonoscopy Family History Mother Atrial fibrillation Father Myocardial infarction Social History Smoking Status: Never smoker Second Hand Exposure: No; Hx Alcohol Use: No Hx Substance Use: No Preferred Language: German Communication Ability: Effective Sky Line Yarder Required: No Beliefs That Will Affect Care: None marital status: / Current Living Situation: Alone Current Living Situation Comment: Lives in a house Other Information That Helps Us Care for You: No Feels Safe at Home: Yes Safety Concerns: Feels Safe At This Time Assistive Devices: Glasses Physical Exam Physical Exam: Patient is a 4/5 bilateral quadriceps plantar flexion dorsiflexion. Sensory appears to be symmetric and intact. She is markedly uncomfortable with motion and rotation in bed. Results & Data ([facility]) Vital Signs (Past 12 Hours) Vital Signs Temp Pulse Pulse Resp BP Pulse Ox 04/24/21 07:49 36.7 C 72 18 163/91 H 94 04/24/21 06:00 99 H 04/24/21 04:10 36.8 C 75 17 165/77 H 93 04/23/21 22:37 36.7 C 84 18 143/80 H 95
--- NOTE | 2021-04-24 15:40 | Hospitalist Progress Note ---
Date of Service April 24, 2021 Assessment & Plan (1) Back pain: Plan: Possible epidural abscess/disc herniation With radiculopathy symptoms hx closed sacral fracture status post surgery (05/2020) MRI of the Lumbar Spine: IMPRESSION: 1. There is a 16 x 12 x 9 mm oval shaped nonenhancing focus posterior to the L3 vertebral body at the right paracentral location. This is concerning for an epidural abscess. An epidural hematoma or less likely disc fragment could also have a similar appearance. Surgical consultation advised. This results in moderate to severe right-sided central canal narrowing at the L3 level. This also results in severe right-sided neural foraminal narrowing. 2. L4-S1 posterior decompression and fusion. 3. Mild endplate edema and paravertebral edema at the L2-L3 level. There is associated endplate enhancement and paravertebral enhancement. Therefore, this concerning for a discitis/osteomyelitis at this level. Additional areas of endplate edema and enhancement within the T11-L2 levels is nonspecific and could be due to additional areas of osteomyelitis or chronic degenerative change. Moderate to severe multilevel central canal and bilateral neural foraminal narrowing as described above. 4. These findings were called/faxed to the referring physician following dictation. No overt sepsis for now Appreciate Ortho input and recommendation-plan for lumbar decompression and fusion with possible hardware removal tomorrow that is 04/25/2021 Still has the back pain with occasional radiation and weakness in the legs Denies any bladder and or bowel problem (2) Uncontrolled hypertension, stage 1: Plan: HTN, elevated secondary to discomfort Blood pressure remains on the upper side We will continue with her home blood pressure medications We will give as needed hydralazine (3) Acute worsening of stage 3 chronic kidney disease: Plan: ARF secondary to illness, clinical dehydration with note of ketonuria Kidney function has been normalized with cautious amount of intravenous fluid We will monitor PRP (4) Atrial fibrillation: Plan: AF on Coumadin, rate controlled, INR slightly supratherapeutic INR was elevated on admission Received intravenous vitamin K INR is 1.4 today and will hold any anticoagulation for proposed surgery tomorrow (5) Parkinsons disease: Plan: Parkinson's disease, stable on regimen Has significant tremors involving the hands (6) DM type 2 (diabetes mellitus, type 2): Plan: DM 2 diet-controlled, well-controlled as of recent outpatient hemoglobin A1c of 6.3, December 2020 We will continue with SSI DVT prophylaxis. Coumadin INR goal between 2 and 3 if no procedural intervention SCDs for now Full code Patient requests for her brother to be updated of plan of care. Mr. Torrey PhanJr. thru contact #[phone]. Admission and Anticipated Discharge Date Admission Date: April 24, 2021 Subjective 04/24/2021 The patient was seen and examined in medical telemetry unit She complains to have back pain which is worse with movement and he still has the weakness of the legs Denies any fever and/or chills and denies any problem with urine and bowel habit She will have back surgery tomorrow Review of Systems Review of Systems: All systems reviewed and are unremarkable except as noted below Musculoskeletal: Back pain with occasional radiation to the legs Physical Exam Physical Exam: Lying in bed without any acute distress Constitutional: well developed, well nourished, + ill appearing and + obese Eyes: PERRL, conjunctivae normal, anicteric sclerae ENMT: external ear and nose normal, oropharynx normal Neck: trachea midline, no thyromegaly Respiratory: no respiratory distress and no cough Auscultation: lungs clear to auscultation bilaterally Cardiovascular: Rate/Rhythm: regular rate and regular rhythm; not tachycardic Heart Sounds: normal S1 and normal S2; no murmur Extremities: no edema Gastrointestinal (Abdomen): Inspection/Auscultation: normal bowel sounds; abdomen not distended Percussion/Palpation: abdomen soft; abdomen nontender Musculoskeletal: Localized tenderness lower back. No sensory impairment in the legs. Elevation of the legs caused pain in the back with radiation to the legs Neurologic: Alert, awake and oriented x3 Results & Data Results & Data ([facility]) Vital Signs (Past 12 Hours) Vital Signs Temp Pulse Pulse Resp BP BP Pulse Ox 04/24/21 11:45 36.8 C 97 H 18 179/108 H 175/110 H 95 04/24/21 07:49 36.7 C 72 18 163/91 H 94 04/24/21 06:00 99 H 04/24/21 04:10 36.8 C 75 17 165/77 H 93 Laboratory Results Short CBC 04/24/21 Range/Units 06:45 WBC 5.20 (4.8-10.8) K/uL Hgb 13.0 (12.0-16.0) g/dL Hct 40.5 (37-47) % Plt Count 199 (130-400) K/uL BMP 04/24/21 06:45 Sodium 141 Potassium 3.9 Chloride 108 H Carbon Dioxide 26 BUN 16 Creatinine 0.91 D Glucose 92 Calcium 8.5 Cardiac Enzymes 04/24/21 Range/Units 06:45 Total Creatine Kinase 184 (26-192) U/L Medications Administered Current Inpatient Medications Acetaminophen (Acetaminophen 325 Mg Tab) 650 mg PO Q4H PRN PRN Reason: FEVER/PAIN Stop: 05/23/21 04:49 Last Admin: 04/23/21 20:50 Dose: 650 mg Documented by: Carbidopa/Levodopa (Carbidopa/Levodopa 25-250 1 Ea Tab) 1 tab PO QID@0900,1200,1600,2100 [facility] Stop: 05/23/21 08:59 Last Admin: 04/24/21 12:32 Dose: 1 tab Documented by: Dextrose (Dextrose 50% 50 Ml Syringe) 25 - 50 ml IV UD PRN; Protocol PRN Reason: Hypoglycemia Protocol Stop: 05/23/21 04:49 Diltiazem HCl (Diltiazem Hcl 120 Mg Capcr) 120 mg PO QAM [facility] Stop: 05/23/21 08:59 Last Admin: 04/24/21 12:32 Dose: 120 mg Documented by: Docusate Sodium (Docusate Sodium 100 Mg Cap) 200 mg PO DAILY PRN PRN Reason: Constipation Stop: 05/23/21 04:49 Entacapone (Entacapone 200 Mg Tab) 200 mg PO TID@0900,1200,1600 [facility] Stop: 05/23/21 07:59 Last Admin: 04/24/21 12:33 Dose: 200 mg Documented by: Escitalopram Oxalate (Escitalopram Oxalate 10 Mg Tab) 10 mg PO QAM [facility] Stop: 05/23/21 08:59 Last Admin: 04/24/21 09:05 Dose: Not Given Documented by: Glucagon (Glucagon For Inj 1 Mg Vial) 1 mg SQ UD PRN; Protocol PRN Reason: Hypoglycemia Protocol Stop: 05/23/21 04:49 Glucose (Glucose 10 Tabs/Tube) 4 - 8 tabs PO UD PRN; Protocol PRN Reason: Hypoglycemia Protocol Stop: 05/23/21 04:49 Glucose (Glucose 40% Gel 15 Gm Tube) 15 - 30 gm PO UD PRN; Protocol PRN Reason: Hypoglycemia Protocol Stop: 05/23/21 04:49 Hydromorphone HCl (Hydromorphone Inj 0.5 Mg/0.5 Ml Syr) 0.25 mg IV Q6H PRN PRN Reason: Pain Stop: 05/07/21 04:49 Last Admin: 04/23/21 10:39 Dose: 0.25 mg Documented by: Promethazine HCl 12.5 mg/ (Sodium Chloride) 50.5 mls @ 202 mls/hr IV Q6H PRN PRN Reason: Nausea And Vomiting Stop: 05/23/21 04:49 Ceftriaxone Sodium 2,000 mg/ (Dextrose) 70 mls @ 100 mls/hr IV DAILY [facility]; Protocol Stop: 06/04/21 14:29 Last Infusion: 04/24/21 10:28 Dose: Infused Documented by: Vancomycin HCl 1,500 mg/ (Sodium Chloride) 530 mls @ 200 mls/hr IV Q18H [facility] Stop: 06/06/21 00:00 Insulin Aspart (Insulin Aspart 100 Units/Ml 3 Ml Pen) 0 units SC ACHS [facility] Stop: 05/23/21 07:29 Last Admin: 04/24/21 12:35 Dose: Not Given Documented by: Lidocaine (Lidocaine 5% 1 Patch) [facility] Stop: 05/23/21 05:59 Last Admin: 04/24/21 09:11 Dose: 1 patch Documented by: Lorazepam (Lorazepam 0.5 Mg Tab) 0.5 mg PO BID [facility] Stop: 05/23/21 08:59 Last Admin: 04/24/21 09:05 Dose: Not Given Documented by: Metoprolol Succinate (Metoprolol Succ 25mg Ext Rel Tab) 12.5 mg PO QAM [facility] Stop: 05/24/21 08:59 Last Admin: 04/24/21 12:33 Dose: 12.5 mg Documented by: Miscellaneous (Carbohydrates For Hypoglycemia ) 15 - 30 gm PO UD PRN PRN Reason: Hypoglycemia Protocol Stop: 05/23/21 04:49 Miscellaneous (Remove Lidoderm Patch) 1 ea N/A DAILY@2100 [facility] Stop: 05/23/21 20:59 Last Admin: 04/23/21 20:50 Dose: 1 ea Documented by: Miscellaneous Information (Vancomycin Consult Active) 1 ea N/A UD PRN PRN Reason: Consult Stop: 05/23/21 13:34 Oxycodone HCl (Oxycodone Hcl Ir 5 Mg Tab (Immediate Release)) 5 mg PO Q4H PRN PRN Reason: Pain Stop: 05/07/21 04:49 Polyethylene Glycol (Polyethylene (Miralax) 17 Gm Pack) 17 gm PO BID PRN PRN Reason: Constipation Stop: 05/23/21 04:49
[2021-04-24] MEDS: METOPROLOL TARTRATE 25 MG TAB PO SCH (17:36)
[2021-04-25] MEDS: VANCOMYCIN HCL 1,500 MG in SODIUM CHLORIDE 0.9% 500 ML IV SCH ×2 (01:01→18:09)
[2021-04-25] MEDS ORDERED: ceFAZolin 2000MG 2,000 MG/15 ML SYR IV SCH (06:00)
[2021-04-25 06:48] LABS: Creatinine Clr Calc Pharmacy 67.5 ml/min; Est GFR (African American) 84.8 ml/min; Est GFR (Non-African American) 73.1 ml/min
[2021-04-25] MEDS: INSULIN ASPART 100 UNITS/ML 3 ML PEN SC SCH ×4 (07:42→21:02)
[2021-04-25] MEDS: dilTIAZem HCL 120 MG CAPCR PO SCH (07:45)
[2021-04-25] MEDS: ENTACAPONE 200 MG TAB PO SCH ×3 (07:45→17:36)
[2021-04-25] MEDS: ESCITALOPRAM OXALATE 10 MG TAB PO SCH (07:45)
[2021-04-25] MEDS: CARBIDOPA/LEVODOPA 25-250 1 EA TAB PO SCH ×4 (07:45→20:58)
[2021-04-25] MEDS: LIDOCAINE 5% 1 PATCH TD SCH (07:46)
[2021-04-25] MEDS: LORazepam 0.5 MG TAB PO SCH ×2 (07:48→21:01)
[2021-04-25] MEDS: METOPROLOL TARTRATE 25 MG TAB PO SCH (07:48)
[2021-04-25] MEDS: METOPROLOL SUCC 25MG EXT REL TAB PO SCH (07:48)
[2021-04-25] MEDS: cefTRIAXone SODIUM 2,000 MG in DEXTROSE 5% 50 ML IV SCH (07:59)
--- NOTE | 2021-04-25 08:48 | History & Physical Bridge Note ---
Date of Service April 25, 2021 History & Physical Bridge Note I have examined the patient, reviewed the History & Physical and in the interval since the performance of the History & Physical I have noted the following changes of clinical significance: no changes Decompression fusion L1-L3 possible hardware removal
[2021-04-25 09:07] LABS: Basophils # (auto) 0.02 K/uL (0-0.2); Basophils % (auto) 0.3 %; Eosinophils # (auto) 0.08 K/uL (0-0.5); Eosinophils % (auto) 1.2 %; Hematocrit (blood only) 41.6 % (37-47); Hemoglobin 13.8 g/dL (12.0-16.0); Immature Granulocytes # (auto) 0.01 K/uL (0.00-0.02); Immature Granulocytes % (auto) 0.2 %; Lymphocytes # (auto) 1.02 K/uL (1.2-3.4); Lymphocytes % (auto) 15.3 %; Mean Corpuscular Hemoglobin 26.4 pg (25-34); Mean Corpuscular Hgb Conc 33.2 g/dL (32-36); Mean Corpuscular Volume 79.5 fL (80-100); Mean Platelet Volume 10.7 fL (7.4-10.4); Monocytes % (auto) 10.5 %; Neutrophils # (auto) 4.82 K/uL (1.4-6.5); Neutrophils % (auto) 72.5 %; Platelet Count 199 K/uL (130-400); RDW Coefficient of Variation 19.1 % (11.5-14.5); RDW Standard Deviation 56.1 fL (36.4-46.3); Red Blood Count 5.23 M/uL (4.2-5.4); White Blood Count 6.65 K/uL (4.8-10.8)
[2021-04-25] MEDS ORDERED: ceFAZolin 2,000 MG/15 ML IV PUSH IV ONE (09:07)
[2021-04-25 09:15] LABS: INR 1.2 (0.9-1.1)
[2021-04-25] MEDS ORDERED: Nursing to Pharmacy Communication SCH ×2 (09:15→21:00)
[2021-04-25 09:34] LABS: BUN Creatinine Ratio 16.1 (10-20); Calcium 8.7 mg/dl (8.5-10.1); Creatinine Clr Calc Pharmacy 67.5 ml/min; Est GFR (African American) 84.8 ml/min; Est GFR (Non-African American) 73.1 ml/min; Potassium 3.6 mmol/L (3.5-5.1)
[2021-04-25] MEDS ORDERED: HYDROmorphone INJ 1 MG/ML SYRINGE IV PRN ×2 (10:14→18:55)
[2021-04-25] MEDS ORDERED: ATROPINE SULFATE 0.1 MG/ML 10ML SYR IV PRN (10:14)
[2021-04-25] MEDS ORDERED: ePHEDrine sulfate 50 MG/ML AMP IV PRN (10:14)
[2021-04-25] MEDS ORDERED: ONDANSETRON INJ 2 MG/ML 2 ML VIAL IV PRN ×2 (10:14→18:55)
--- NOTE | 2021-04-25 10:14 | Anesthesiology Consultation ---
Date of Service April 25, 2021 Assessment & Plan (1) Encounter for pre-operative examination: Chart Review Chart Review: Acceptable Risk for Surgery and Patient NOT seen in Pre Admission Testing Consults Requested none History Surgery Operation Date: 04/25/21 09:50 Proposed Procedures p L1-L3 Lumbar Decompression Infusion, with Possible Hardware Removal - Yehuda Marcelino DO Height/Weight Height: 5 ft 3 in Weight: 92.1 kg Allergies Allergy/AdvReac Type Severity Reaction Status Date / Time pramipexole AdvReac Intermediate hallucinati Verified 04/23/21 01:20 ons Medications Home Medications Medication Instructions Recorded Confirmed Last Taken atorvastatin 40 mg tablet (Lipitor) 80 mg PO QPM 01/21/20 04/23/21 04/22/21 calcitriol 0.5 mcg capsule 0.5 mcg PO QDL 01/21/20 04/23/21 04/22/21 cholecalciferol (vitamin D3) 25 50 mcg PO BID 01/21/20 04/23/21 04/22/21 mcg (1,000 unit) tablet (Vitamin D3) entacapone 200 mg tablet (Comtan) 200 mg PO TID 01/21/20 04/23/21 04/22/21 escitalopram oxalate 10 mg tablet 10 mg PO QAM 01/21/20 04/23/21 04/22/21 (Lexapro) lorazepam 0.5 mg tablet (Ativan) 0.5 mg PO BID 01/21/20 04/23/21 04/22/21 raloxifene 60 mg tablet 60 mg PO QDL 01/21/20 04/23/21 04/22/21 valsartan 80 mg tablet (Diovan) 80 mg PO QDL 01/21/20 04/23/21 04/22/21 docusate sodium 100 mg capsule 200 mg PO DAILY PRN 09/12/20 04/23/21 Unknown (Col-Rite) polyethylene glycol 3350 17 gram 17 g PO BID PRN 09/14/20 04/23/21 Unknown oral powder packet (Miralax) acetaminophen 325 mg tablet 650 mg PO Q4H PRN 04/23/21 04/23/21 Unknown (Tylenol) carbidopa 25 mg-levodopa 250 mg 1 tab PO QID 04/23/21 04/23/21 04/22/21 tablet diltiazem HCl 120 mg 120 mg PO QAM 04/23/21 04/23/21 04/22/21 capsule,extended release 24 hr iron,carbonyl 65 mg-vitamin C 125 1 tab PO DAILY 04/23/21 04/23/21 04/22/21 mg tablet,delayed release (Vitron-C) metoprolol succinate 25 mg 12.5 mg PO QAM 04/23/21 04/23/21 04/22/21 tablet,extended release 24 hr nystatin 100,000 unit/gram topical 1 applic TOPICAL TID 04/23/21 04/23/21 04/22/21 powder warfarin 3 mg tablet See Rx Instructions .ROUTE .COMPLEX 04/23/21 04/23/21 04/22/21 Active Medications Generic Name Dose Route Start Last Admin Trade Name Freq PRN Reason Stop Dose Admin Acetaminophen 650 mg 04/23/21 04:50 04/23/21 20:50 Acetaminophen 325 Mg Tab PO 05/23/21 04:49 650 mg Q4H PRN Administration FEVER/PAIN Carbidopa/Levodopa 1 tab 04/23/21 09:00 04/25/21 07:45 Carbidopa/Levodopa 25-250 1 Ea Tab PO 05/23/21 08:59 Not Given QID@0900,1200,1600,2100 [facility] Diltiazem HCl 120 mg 04/23/21 09:00 04/25/21 07:45 Diltiazem Hcl 120 Mg Capcr PO 05/23/21 08:59 Not Given QAM [facility] Entacapone 200 mg 04/23/21 09:00 04/25/21 07:45 Entacapone 200 Mg Tab PO 05/23/21 07:59 Not Given TID@0900,1200,1600 [facility] Escitalopram Oxalate 10 mg 04/23/21 09:00 04/25/21 07:45 Escitalopram Oxalate 10 Mg Tab PO 05/23/21 08:59 Not Given QAM [facility] Hydromorphone HCl 0.25 mg 04/23/21 04:50 04/23/21 10:39 Hydromorphone Inj 0.5 Mg/0.5 Ml Syr IV 05/07/21 04:49 0.25 mg Q6H PRN Administration Pain Ceftriaxone Sodium 2,000 mg/ 70 mls @ 100 mls/hr 04/23/21 14:30 04/25/21 07:59 Dextrose IV 06/04/21 14:29 100 mls/hr DAILY [facility] Administration Protocol Vancomycin HCl 1,500 mg/ 530 mls @ 200 mls/hr 04/25/21 00:00 04/25/21 04:00 Sodium Chloride IV 06/06/21 00:00 Infused Q18H [facility] Infusion Insulin Aspart 0 units 04/23/21 07:30 04/25/21 07:42 Insulin Aspart 100 Units/Ml 3 Ml Pen SC 05/23/21 07:29 Not Given ACHS [facility] Lidocaine 1 patch 04/23/21 06:00 04/25/21 07:46 Lidocaine 5% 1 Patch TD 05/23/21 05:59 1 patch QAM [facility] Administration Lorazepam 0.5 mg 04/23/21 09:00 04/25/21 07:48 Lorazepam 0.5 Mg Tab PO 05/23/21 08:59 Not Given BID [facility] Metoprolol Succinate 25 mg 04/25/21 09:00 04/25/21 07:48 Metoprolol Succ 25mg Ext Rel Tab PO 05/25/21 08:59 Not Given QAM [facility] Metoprolol Tartrate 12.5 mg 04/24/21 16:00 04/25/21 07:48 Metoprolol Tartrate 25 Mg Tab PO 05/24/21 15:59 Not Given QAM [facility] Miscellaneous 1 ea 04/23/21 21:00 04/24/21 22:42 Remove Lidoderm Patch N/A 05/23/21 20:59 1 ea DAILY@2100 [facility] Administration NPO Date Last Intake of Fluids: 04/24/21 Time Last Intake of Fluids: 23:00 Date Last Intake of Solids: 04/24/21 Time Last Intake of Solids: 19:00 Past Medical History Medical History Acute UTI (urinary tract infection) Anxiety Atrial fibrillation paroxysmal on warfarin CKD (chronic kidney disease) Contusion of multiple sites Depression DM type 2 (diabetes mellitus, type 2) diet controlled Fall Fall from ground level Hyperlipidemia Hypertension Obesity Osteoarthritis Parkinsons disease Rhabdomyolysis Urinary incontinence Vertigo Past Family History Family History Mother Atrial fibrillation Father Myocardial infarction Past Surgical History Surgical History History of cholecystectomy lap cholecystectomy: 01/26/20: Grade 1 view, MAC#3, ETT 7 at [facility] History of incision and drainage shoulder> PT UNSURE OF DETAILS Hx of breast biopsy LEFT Hx of colonoscopy Social History Smoking Status: Never smoker Hx Alcohol Use: No Hx Substance Use: No substance use type: does not use Physical Exam Vital Signs Last Vital Signs Temp 36.6 C 04/25/21 09:05 Pulse 82 04/25/21 09:05 Resp 20 04/25/21 09:05 BP 174/87 H 04/25/21 09:05 Pulse Ox 100 04/25/21 09:05 Testing Laboratory Results 04/25/21 08:49 04/25/21 08:49 PT 12.0 Seconds (9.0-12.0) 04/25/21 08:49 INR 1.2 (0.9-1.1) H 04/25/21 08:49 Urine Color Dark Yellow 04/23/21 02:15 Urine Appearance Clear (Clear) 04/23/21 02:15 Urine pH 6.0 (4.5-7.5) 04/23/21 02:15 Ur Specific [place] 1.018 (1.000-1.030) 04/23/21 02:15 Urine Protein Negative (Negative) 04/23/21 02:15 Urine Glucose (UA) Negative (Negative) 04/23/21 02:15 Urine Ketones Trace (Negative) H 04/23/21 02:15 Urine Nitrite Negative (Negative) 04/23/21 02:15 Ur Leukocyte Esterase Negative (Negative) 04/23/21 02:15 Blood Type O Positive 04/24/21 14:23 Antibody Screen NEGATIVE 04/24/21 14:23 04/23/21 01:18 Aerobic Blood Culture - Preliminary Blood No growth in Aerobic bottle after 48 hours. Anaerobic Blood Culture - Preliminary No growth in Anaerobic bottle after 48 hours. 04/23/21 01:11 Aerobic Blood Culture - Preliminary Blood No growth in Aerobic bottle after 48 hours. Anaerobic Blood Culture - Preliminary No growth in Anaerobic bottle after 48 hours. 04/25/21 04/25/21 07:23 01:07 POC Glucose 83 85 Electrocardiogram Date: 04/23/21 Atrial fibrillation (70) Anterior infarct (cited on or before 23-APR-2021) Abnormal ECG When compared with ECG of 14-SEP-2020 16:45, No significant change was found Chest X-Ray Date: 04/23/21 Findings: + NAD Other Testing Stress Test Date: 01/20/20 Type: DSE Stress echo negative for inducible ischemia. EF 55-60%. Mildly increased cLV wall thickness. Grade 3 DD with restrictive physiology. Mild MR/TR. Severe LAE. Moderate CHASITY. PASP borderline elevated (44mmhg). 127% MPHR.
[2021-04-25] MEDS ORDERED: BUPIVACAINE 0.5 % 5 MG/1 ML MPF 30ML VIAL ONE (10:45)
[2021-04-25] MEDS ORDERED: EPINEPHrine INJ 1 MG/ML AMP ONE (10:45)
[2021-04-25] MEDS ORDERED: LIDOCAINE 2% 2 ML VIAL/AMP(20MG/ML) INFIL ONE (10:48)
[2021-04-25] MEDS ORDERED: fentaNYL citrate 100 MCG/2 ML VIAL ONE ×3 (10:48→13:49)
[2021-04-25] MEDS ORDERED: KETAMINE 50 MG/5 ML SYRINGE ONE (10:48)
[2021-04-25] MEDS ORDERED: PROPOFOL IV EMULSION 10 MG/ML 20 ML VIAL IV ONE (10:48)
[2021-04-25] MEDS ORDERED: ONDANSETRON INJ 2 MG/ML 2 ML VIAL ONE (10:48)
[2021-04-25] MEDS ORDERED: ROCURONIUM BROMIDE 10 MG/ML 5 ML VIAL IV ONE (11:42)
[2021-04-25] MEDS ORDERED: FLOSEAL HEMOSTATIC MATRIX 10ML TOP ONE (12:42)
[2021-04-25] MEDS ORDERED: DEXAMETHASONE SOD INJ 4 MG/ML VIAL ONE (12:57)
[2021-04-25] MEDS ORDERED: ALBUMIN HUMAN 5% 12.5 GM/250 ML VIAL IV ONE (13:07)
[2021-04-25] MEDS ORDERED: SUGAMMADEX SODIUM 200 MG/2 ML VIAL IV ONE (13:49)
--- NOTE | 2021-04-25 13:55 | Operative Report ---
Post Operative Report Pre & Post Diagnosis Operation Date: 04/25/21 09:50 Pre-Op Diagnosis: Lumbar spinal stenosis with herniated nucleus pulposus neurogenic claudication Post-Op Diagnosis: Same I identified the patient and participated in the time-out.: Yes Procedure Operation Date: 04/25/21 09:50 Actual Procedures #1 removal of posterior instrumentation L4-S1 including bilateral iliac bolts. #2 exploration of fusion L4-S1 including bilateral SI joint fusions. #3 lumbar decompression with bilateral medial facetectomies and foraminotomies L1-2, L2-3 and L3-4. #4 posterior spinal fusion L1-L4. #5 patient posterior segmental instrumentation L1-S1. #6 interbody fusion L2-L3. #7 placement peek cage 8 x 22 mm at L2-L3. #8 placement of locally harvested morselized autograft in the posterior gutters. #9 placement infuse collagen sponge combined with master graft in the posterior lateral gutters and I factor in the interbody space. Surgeon Yehuda Marcelino, DO [employer] Daja Glass Estimated Blood Loss 950 Findings See Below The patient is 5 foot 3 inches tall weighing over 92 kg with a BMI of 36. This combined with an EBL of greater than 950 cc. A significant technical difficulty requiring her deepest retractors longus instruments in order to perform her procedure. This added at least 50% increase to the operative time. Specimens None Indications This is a 75-year-old female who presents to the emergency room with severe back and leg symptoms with inability to ambulate. Subsequently she is here for urgent decompression fusion. Description of Procedure Patient was met with identified informed consent obtained. Patient was then taken to the operative suite underwent intubation placed in a prone position the [place] table top [place] frame. All bony prominences well-padded eyes inspected to ensure no external pressure placed upon them. This point the lumbar spine was prepped and draped in a sterile fashion. Sharp dissection with the assistance of Bovie cautery was performed down to and exposing the lamina and transverse processes of L1-L2-L3 and instrumentation at L4-L5 and S1 levels bilaterally including bilateral SI joints. Then proceeded to move the hardware bilaterally including the bilateral iliac bolts explore the fusion masses as well as the bilateral SI joint fusions noted to be mature and intact. And then performed a complete laminectomy of L3 L2 L1 from a caudal cephalad fashion addressing severe central lateral recess stenosis. This did include removal of a massive free disc herniation that started at L2-3 and extended down the canal to the L4 pedicle. Pedicle screws then placed in L1-L2-L3 L4 S1 levels bilaterally with assistance of fluoroscopy and proper sized lia placed. By way of a transfemoral approach on the right the discectomy of L2-L3 was performed endplates curetted to subcortically bone and 8 x 22 mm peek cage filled with I factor tapped in position. The rods then locked in final position bilaterally. The transverse processes of L2-L3 L4 burred to subcortically bone. Infuse collagen sponge master graft local autograft was placed in the posterior gutters. 15 round KAVEH drain inserted. Incision was then closed with 1 Vicryl the fascia 2-0 Vicryl subcutaneously and 4 Monocryl for final skin closure. Steri-Strip sterile dressings placed. Patient waken taken PACU stable condition. Please note spinal cord monitoring was utilized at the procedure no changes noted. Lastly Daja Glass was present at the entire procedure and while the patient positioning complex portions of the surgery and final skin closure. I attest to the content of the Intraoperative Record and any orders documented therein. Any exceptions are noted below.
--- NOTE | 2021-04-25 13:56 | Fluoroscopy Report ---
FL lumbar spine 2-3V CLINICAL INDICATION: MN ^L1-L3 DECOMPRESSION AND FUSION. TECHNIQUE: 4 views were obtained with the C-arm in the OR with the above procedure. Total fluoroscopy time was 24.4 seconds. Total skin dose was 25.04 mGy. Comparison: None available at the time of this dictation. FINDINGS/IMPRESSION: Intraoperative images were obtained of posterior fixation and decompression of t he lumbar spine. Please correlate with intraoperative fluoroscopy and operative report. ACT 112: Negative or not required by law. Electronically signed by: Nic Burton M.D. 04/25/2021 1:55 PM
[2021-04-25] MEDS: fentaNYL citrate 100 MCG/2 ML VIAL IV PRN ×2 (14:30→14:41)
[2021-04-25] MEDS ORDERED: HYDROmorphone INJ 2 MG/ML SYR/VIAL ONE (14:46)
[2021-04-25] MEDS: HYDROmorphone INJ 1 MG/ML SYRINGE IV PRN ×4 (14:49→15:13)
[2021-04-25 14:51] LABS: Hemoglobin 11.5 g/dL (12.0-16.0)
[2021-04-25] MEDS ORDERED: MEPERIDINE HCL 25 MG/ML CARP/VIAL IV PRN (15:21)
[2021-04-25] MEDS ORDERED: MEPERIDINE HCL 25 MG/ML CARP/VIAL ONE (15:24)
[2021-04-25 16:12] LABS: Hematocrit (blood only) 33.7 % (37-47); Hemoglobin 10.8 g/dL (12.0-16.0)
--- NOTE | 2021-04-25 16:19 | Anesthesiology Progress Note ---
Date of Service April 25, 2021 Anesthesia Post Procedure Vital Signs Vital Signs: Temp Pulse Pulse Pulse Resp BP BP 04/25/21 17:05 100 H 20 92/62 L 04/25/21 16:55 36.5 C 99 H 22 108/66 04/25/21 16:45 101 H 24 95/65 L 04/25/21 16:35 91 H 22 91/56 L 04/25/21 16:25 104 H 20 96/56 L 04/25/21 16:15 113 H 20 93/61 L 04/25/21 16:05 117 H 22 89/54 L 04/25/21 15:55 116 H 15 92/67 L 04/25/21 15:45 115 H 12 90/58 L 04/25/21 15:35 36.8 C 108 H 14 84/66 L 04/25/21 15:25 119 H 17 105/50 L 04/25/21 15:15 121 H 18 103/72 04/25/21 15:05 112 H 17 93/73 L 04/25/21 14:55 100 H 18 103/70 04/25/21 14:45 102 H 26 H 163/94 H 04/25/21 14:35 88 15 111/78 04/25/21 14:25 108 H 26 H 04/25/21 14:18 36.1 C L 98 H 82 20 04/25/21 09:05 36.6 C 82 20 04/25/21 08:00 36.4 C L 70 18 166/85 H 04/25/21 04:00 36.6 C 75 18 04/25/21 01:00 73 04/24/21 23:25 36.5 C 74 18 04/24/21 19:33 36.8 C 74 18 BP Pulse Ox 04/25/21 17:05 96 04/25/21 16:55 95 04/25/21 16:45 98 04/25/21 16:35 95 04/25/21 16:25 95 04/25/21 16:15 98 04/25/21 16:05 99 04/25/21 15:55 98 04/25/21 15:45 97 04/25/21 15:35 99 04/25/21 15:25 99 04/25/21 15:15 98 04/25/21 15:05 97 04/25/21 14:55 99 04/25/21 14:45 95 04/25/21 14:35 100 04/25/21 14:25 175/121 H 99 04/25/21 14:18 148/97 H 100 04/25/21 09:05 174/87 H 100 04/25/21 08:00 97 04/25/21 04:00 167/99 H 96 04/25/21 01:00 04/24/21 23:25 162/103 H 95 04/24/21 19:33 160/90 H 95 Pain Intensity Back: Pain Intensity: 5 Transfer of Care Handoff Completed per policy Notes Mental Status: alert / awake / arousable and participated in evaluation Patient Amnestic to Procedure: Yes Nausea / Vomiting: adequately controlled Pain: see Notes below Airway Patency, RR, SpO2: stable & adequate BP & HR: stable & adequate and see Notes below Hydration State: stable & adequate Anesthetic Complications: see Notes below Notes: Pt arrived in PACU complaining about severe back pain. Treated with 2 Dilaudid, 25 mg Demerol, and 100 mcg fentanyl without any relief. KAVEH drain with large amount of output (>300 cc) and bleeding visible in the dressing. Hemoglobin dropped from 11.5 to 10.8. Neurological exam unchanged and patient with postoperative delirium. Jeyson, covering for Dr. Marcelino, notified of my concern that patient's pain is outside of what I expect for a postop back and that the patient has large amounts of postoperative drainage. The team is comfortable with no additional interventions at this time as long as the patient's neurological exam is unchanged. Pt then with relative hypotension and tachycardia that improved after fluid boluses. Additional 200 cc of KAVEH drainage collected and hemoglobin down to 10.2. Patient more comfortable and hemodynamically stable at this time. Dr. Marcelino aware and requesting that we order 2 units crossed to be available in the event that patient requires transfusion at a later time. Order placed, blood bank notified and patient ok to transfer to [facility] at this time for further management by the primary team.
[2021-04-25 16:54] LABS: Hematocrit (blood only) 31.8 % (37-47); Hemoglobin 10.2 g/dL (12.0-16.0)
[2021-04-25] MEDS ORDERED: SODIUM CHLORIDE 0.9% 250 ML IV PRN (17:13)
--- NOTE | 2021-04-25 18:44 | Hospitalist Progress Note ---
Date of Service April 25, 2021 Assessment & Plan (1) Back pain: Plan: With radiculopathy symptoms with possible disc herniation as per Ortho hx closed sacral fracture status post surgery (05/2020) Appreciate Ortho input and recommendation-plan for lumbar decompression and fusion with possible hardware removal tomorrow that is 04/25/2021 Still has the back pain with occasional radiation and weakness in the legs Denies any bladder and or bowel problem Status post L1-L3 lumbar decompression and fusion and removal of hardware L4-S1 on 04/25/2021 Management will be as per orthopedic surgeon Blood pressure was noted to be low following surgery and has been getting i ntravenous fluid We will monitor Possible epidural abscess/disc herniation MRI of the Lumbar Spine: IMPRESSION: 1. There is a 16 x 12 x 9 mm oval shaped nonenhancing focus posterior to the L3 vertebral body at the right paracentral location. This is concerning for an epidural abscess. An epidural hematoma or less likely disc fragment could also have a similar appearance. Surgical consultation advised. This results in moderate to severe right-sided central canal narrowing at the L3 level. This also results in severe right-sided neural foraminal narrowing. 2. L4-S1 posterior decompression and fusion. 3. Mild endplate edema and paravertebral edema at the L2-L3 level. There is associated endplate enhancement and paravertebral enhancement. Therefore, this concerning for a discitis/osteomyelitis at this level. Additional areas of endplate edema and enhancement within the T11-L2 levels is nonspecific and could be due to additional areas of osteomyelitis or chronic degenerative change. Mod erate to severe multilevel central canal and bilateral neural foraminal narrowing as described above. 4. These findings were called/faxed to the referring physician following dictation. No overt sepsis for now Has been on intravenous ceftriaxone and vancomycin Blood cultures have been negative We will continue current antibiotic (2) Uncontrolled hypertension, stage 1: Plan: HTN, elevated secondary to discomfort Blood pressure remains on the upper side We will continue with her home blood pressure medications We will give as needed hydralazine Blood pressure is running on the lower side (3) Acute worsening of stage 3 chronic kidney disease: Plan: ARF secondary to illness, clinical dehydration with note of ketonuria Kidney function has been normalized with cautious amount of intravenous fluid We will monitor PRP-has been normalized (4) Atrial fibrillation: Plan: AF on Coumadin, rate controlled, INR slightly supratherapeutic INR was elevated on admission Received intravenous vitamin K INR is 1.4 today and will hold any anticoagulation for proposed surgery tomorrow Coumadin as soon as okay with the orthopedic surgeon (5) Parkinsons disease: Plan: Parkinson's disease, stable on regimen Has significant tremors involving the hands (6) DM type 2 (diabetes mellitus, type 2): Plan: DM 2 diet-controlled, well-controlled as of recent outpatient hemoglobin A1c of 6.3, December 2020 We will continue with SSI DVT prophylaxis. Coumadin INR goal between 2 and 3 if no procedural intervention SCDs for now Full code Patient requests for her brother to be updated of plan of care. Mr. Hirsch Jr. Emilie thru contact #[phone].- Try to call the without any reply 04/25/2021 Admission and Anticipated Discharge Date Admission Date: April 24, 2021 Subjective 04/24/2021 The patient was seen and examined in medical telemetry unit She complains to have back pain which is worse with movement and he still has the weakness of the legs Denies any fever and/or chills and denies any problem with urine and bowel habit She will have back surgery tomorrow 04/25/2021 The patient was seen and examined in medical telemetry unit She is a status post L1-L3 lumbar decompression and fusion and removal of the hardware L4-S1 Has been having problem with speaking but otherwise no significant symptoms Noted to be low blood pressure likely secondary to dehydration and medication effect Review of Systems Review of Systems: All systems reviewed and are unremarkable except as noted below Musculoskeletal: Back pain with occasional radiation to the legs Physical Exam Physical Exam: Lying in bed without any acute distress Constitutional: well developed, well nourished, + ill appearing and + obese Eyes: PERRL, conjunctivae normal, anicteric sclerae ENMT: external ear and nose normal, oropharynx normal Neck: trachea midline, no thyromegaly Respiratory: no respiratory distress and no cough Auscultation: lungs clear to auscultation bilaterally Cardiovascular: Rate/Rhythm: regular rate and regular rhythm; not tachycardic Heart Sounds: normal S1 and normal S2; no murmur Extremities: no edema Gastrointestinal (Abdomen): Inspection/Auscultation: normal bowel sounds; abdomen not distended Percussion/Palpation: abdomen soft; abdomen nontender Musculoskeletal: No acute arthritis in any joint Neurologic: Alert and awake. Moving all limbs. No numbness and tingling in the extremities Results & Data Results & Data ([facility]) Vital Signs (Past 12 Hours) Vital Signs Temp Pulse Pulse Resp BP BP BP 04/25/21 18:00 36.8 C 93 H 18 95/59 L 04/25/21 17:30 99 H 16 86/52 L 04/25/21 17:20 36.5 C 102 H 16 85/53 L 04/25/21 17:05 100 H 20 92/62 L 04/25/21 16:55 36.5 C 99 H 22 108/66 04/25/21 16:45 101 H 24 95/65 L 04/25/21 16:35 91 H 22 91/56 L 04/25/21 16:25 104 H 20 96/56 L 04/25/21 16:15 113 H 20 93/61 L 04/25/21 16:05 117 H 22 89/54 L 04/25/21 15:55 116 H 15 92/67 L 04/25/21 15:45 115 H 12 90/58 L 04/25/21 15:35 36.8 C 108 H 14 84/66 L 04/25/21 15:25 119 H 17 105/50 L 04/25/21 15:15 121 H 18 103/72 04/25/21 15:05 112 H 17 93/73 L 04/25/21 14:55 100 H 18 103/70 04/25/21 14:45 102 H 26 H 163/94 H 04/25/21 14:35 88 15 111/78 04/25/21 14:25 108 H 26 H 175/121 H 04/25/21 14:18 36.1 C L 98 H 82 20 148/97 H 04/25/21 09:05 36.6 C 82 20 174/87 H 04/25/21 08:00 36.4 C L 70 18 166/85 H Pulse Ox 04/25/21 18:00 95 04/25/21 17:30 96 04/25/21 17:20 96 04/25/21 17:05 96 04/25/21 16:55 95 04/25/21 16:45 98 04/25/21 16:35 95 04/25/21 16:25 95 04/25/21 16:15 98 04/25/21 16:05 99 04/25/21 15:55 98 04/25/21 15:45 97 04/25/21 15:35 99 04/25/21 15:25 99 04/25/21 15:15 98 04/25/21 15:05 97 04/25/21 14:55 99 04/25/21 14:45 95 04/25/21 14:35 100 04/25/21 14:25 99 04/25/21 14:18 100 04/25/21 09:05 100 04/25/21 08:00 97 Laboratory Results Short CBC 04/25/21 04/25/21 04/25/21 Range/Units 08:49 14:40 16:07 WBC 6.65 (4.8-10.8) K/uL Hgb 13.8 11.5 L 10.8 L (12.0-16.0) g/dL Hct 41.6 36.0 L 33.7 L (37-47) % Plt Count 199 (130-400) K/uL 04/25/21 Range/Units 16:46 WBC (4.8-10.8) K/uL Hgb 10.2 L (12.0-16.0) g/dL Hct 31.8 L (37-47) % Plt Count (130-400) K/uL BMP 04/25/21 04/25/21 05:42 08:49 Sodium 141 Potassium 3.6 Chloride 107 Carbon Dioxide 25 BUN 13 Creatinine 0.80 0.80 Glucose 92 Calcium 8.7 Medications Administered Current Inpatient Medications Acetaminophen (Acetaminophen 325 Mg Tab) 650 mg PO Q4H PRN PRN Reason: FEVER/PAIN Stop: 05/23/21 04:49 Last Admin: 04/23/21 20:50 Dose: 650 mg Documented by: Carbidopa/Levodopa (Carbidopa/Levodopa 25-250 1 Ea Tab) 1 tab PO QID@0900,1200,1600,2100 [facility] Stop: 05/23/21 08:59 Last Admin: 04/25/21 17:36 Dose: Not Given Documented by: Dextrose (Dextrose 50% 50 Ml Syringe) 25 - 50 ml IV UD PRN; Protocol PRN Reason: Hypoglycemia Protocol Stop: 05/23/21 04:49 Diltiazem HCl (Diltiazem Hcl 120 Mg Capcr) 120 mg PO QAM [facility] Stop: 05/23/21 08:59 Last Admin: 04/25/21 07:45 Dose: Not Given Documented by: Docusate Sodium (Docusate Sodium 100 Mg Cap) 200 mg PO DAILY PRN PRN Reason: Constipation Stop: 05/23/21 04:49 Entacapone (Entacapone 200 Mg Tab) 200 mg PO TID@0900,1200,1600 [facility] Stop: 05/23/21 07:59 Last Admin: 04/25/21 17:36 Dose: Not Given Documented by: Escitalopram Oxalate (Escitalopram Oxalate 10 Mg Tab) 10 mg PO QAM [facility] Stop: 05/23/21 08:59 Last Admin: 04/25/21 07:45 Dose: Not Given Documented by: Glucagon (Glucagon For Inj 1 Mg Vial) 1 mg SQ UD PRN; Protocol PRN Reason: Hypoglycemia Protocol Stop: 05/23/21 04:49 Glucose (Glucose 10 Tabs/Tube) 4 - 8 tabs PO UD PRN; Protocol PRN Reason: Hypoglycemia Protocol Stop: 05/23/21 04:49 Glucose (Glucose 40% Gel 15 Gm Tube) 15 - 30 gm PO UD PRN; Protocol PRN Reason: Hypoglycemia Protocol Stop: 05/23/21 04:49 Hydromorphone HCl (Hydromorphone Inj 0.5 Mg/0.5 Ml Syr) 0.25 mg IV Q6H PRN PRN Reason: Pain Stop: 05/07/21 04:49 Last Admin: 04/23/21 10:39 Dose: 0.25 mg Documented by: Promethazine HCl 12.5 mg/ (Sodium Chloride) 50.5 mls @ 202 mls/hr IV Q6H PRN PRN Reason: Nausea And Vomiting Stop: 05/23/21 04:49 Ceftriaxone Sodium 2,000 mg/ (Dextrose) 70 mls @ 100 mls/hr IV DAILY [facility]; Protocol Stop: 06/04/21 14:29 Last Infusion: 04/25/21 08:38 Dose: Infused Documented by: Vancomycin HCl 1,500 mg/ (Sodium Chloride) 530 mls @ 200 mls/hr IV Q18H [facility] Stop: 06/06/21 00:00 Last Admin: 04/25/21 18:09 Dose: 200 mls/hr Documented by: Sodium Chloride (Nss) 250 mls @ 15 mls/hr IV .[id number] PRN PRN Reason: For Transfusion Stop: 04/26/21 03:13 Insulin Aspart (Insulin Aspart 100 Units/Ml 3 Ml Pen) 0 units SC ACHS [facility] Stop: 05/23/21 07:29 Last Admin: 04/25/21 17:35 Dose: Not Given Documented by: Lidocaine (Lidocaine 5% 1 Patch) 1 patch TD [facility] Stop: 05/23/21 05:59 Last Admin: 04/25/21 07:46 Dose: 1 patch Documented by: Lorazepam (Lorazepam 0.5 Mg Tab) 0.5 mg PO BID [facility] Stop: 05/23/21 08:59 Last Admin: 04/25/21 07:48 Dose: Not Given Documented by: Meperidine HCl (Meperidine Hcl 25 Mg/Ml Carp/Vial) 25 mg IV Q5M PRN PRN Reason: PACU Use Only-Pain/Shivering Stop: 04/25/21 23:22 Last Admin: 04/25/21 15:28 Dose: 25 mg Documented by: Metoprolol Succinate (Metoprolol Succ 25mg Ext Rel Tab) 25 mg PO [facility] Stop: 05/25/21 08:59 Last Admin: 04/25/21 07:48 Dose: Not Given Documented by: Metoprolol Tartrate (Metoprolol Tartrate 25 Mg Tab) [facility] Stop: 05/24/21 15:59 Last Admin: 04/25/21 07:48 Dose: Not Given Documented by: Miscellaneous (Carbohydrates For Hypoglycemia ) 15 - 30 gm PO UD PRN PRN Reason: Hypoglycemia Protocol Stop: 05/23/21 04:49 Miscellaneous (Remove Lidoderm Patch) 1 ea N/A DAILY@2100 [facility] Stop: 05/23/21 20:59 Last Admin: 04/24/21 22:42 Dose: 1 ea Documented by: Miscellaneous Information (Vancomycin Consult Active) 1 ea N/A UD PRN PRN Reason: Consult Stop: 05/23/21 13:34 Oxycodone HCl (Oxycodone Hcl Ir 5 Mg Tab (Immediate Release)) 5 mg PO Q4H PRN PRN Reason: Pain Stop: 05/07/21 04:49 Polyethylene Glycol (Polyethylene (Miralax) 17 Gm Pack) 17 gm PO BID PRN PRN Reason: Constipation Stop: 05/23/21 04:49
[2021-04-25] MEDS ORDERED: oxyCODONE HCL IR 5 MG TAB (IMMEDIATE RELEASE) PO PRN (18:55)
[2021-04-25] MEDS ORDERED: MAGNESIUM HYDROXIDE SUSP 30 ML UDC PO PRN (18:55)
[2021-04-25] MEDS ORDERED: ACETAMINOPHEN 1,000 MG/100 ML VIAL IV PRN (18:55)
[2021-04-25] MEDS ORDERED: METOCLOPRAMIDE HCL INJ 5 MG/ML 2 ML VIAL IV PRN (18:55)
[2021-04-25] MEDS ORDERED: traMADol HCL 50 MG TABLET PO PRN (18:55)
[2021-04-25] MEDS ORDERED: ALUMINUM/MAGNESIUM SUSP 30 ML UDC PO PRN (18:55)
[2021-04-25] MEDS ORDERED: DO NOT ADMINISTER FLU VACCINE PRN (18:55)
[2021-04-25] MEDS ORDERED: SOD PHOSPHATE/SOD BIPHOSPHATE ENEMA 132 ML BTL PR PRN (18:55)
[2021-04-25] MEDS ORDERED: bisacodyL 10 MG SUPP PR PRN (18:55)
[2021-04-25] MEDS ORDERED: diphenhydrAMINE Capsule 25 MG CAP PO PRN (18:55)
[2021-04-25] MEDS ORDERED: FAMOTIDINE 20 MG TAB PO PRN (18:55)
[2021-04-25] MEDS ORDERED: hydrOXYzine HCl 25 MG TAB PO PRN (18:55)
[2021-04-25] MEDS ORDERED: HYDROmorphone INJ 0.5 MG/0.5 ML SYR IV PRN (18:55)
[2021-04-25] MEDS ORDERED: NALOXONE HCL 0.4 MG/1 ML VIAL/CARP IV PRN (18:55)
[2021-04-25] MEDS ORDERED: LORazepam 0.5 MG TAB PO PRN (18:55)
[2021-04-25] MEDS ORDERED: PROMETHAZINE HCL 12.5 MG in SODIUM CHLORIDE 0.9% 50 ML IV PRN (18:55)
[2021-04-25] MEDS ORDERED: ACETAMINOPHEN 500 MG TAB PO PRN (18:55)
[2021-04-25] MEDS ORDERED: LORazepam 0.5 MG/1 ML VIAL IV PRN (18:55)
[2021-04-25] MEDS ORDERED: ONDANSETRON 4 MG OD TAB PO PRN (18:55)
[2021-04-25] MEDS ORDERED: DO NOT ADMINISTER PNEUMOCOCCAL VACCINE PRN (18:55)
[2021-04-25] MEDS: ceFAZolin 2000MG 2,000 MG/15 ML SYR IV SCH (20:57)
[2021-04-25] MEDS: NYSTATIN POWDER 15GM BTL EXT SCH ×2 (20:58→21:03)
[2021-04-25] MEDS: ATORVASTATIN 40 MG TAB PO SCH (20:58)
[2021-04-25] MEDS: CHOLECALCIFEROL 1,000 UNITS 25 MCG TAB PO SCH (20:59)
[2021-04-25] MEDS: DOCUSATE SODIUM/SENNA 50/8.6MG TAB PO SCH (21:00)
[2021-04-25] MEDS: SODIUM CHLORIDE 0.9% 1000ML 1,000 ML IV SCH (21:03)
[2021-04-26] MEDS: ceFAZolin 2000MG 2,000 MG/15 ML SYR IV SCH (04:57)
[2021-04-26] MEDS: POLYETHYLENE (MIRALAX) 17 GM PACK PO SCH ×4 (06:08→23:25)
[2021-04-26] MEDS: SODIUM CHLORIDE 0.9% 1000ML 1,000 ML IV SCH ×2 (07:25→17:53)
[2021-04-26 07:44] LABS: Basophils # (auto) 0.01 K/uL (0-0.2); Basophils % (auto) 0.1 %; Hemoglobin 9.1 g/dL (12.0-16.0); Immature Granulocytes # (auto) 0.01 K/uL (0.00-0.02); Immature Granulocytes % (auto) 0.1 %; Lymphocytes # (auto) 0.69 K/uL (1.2-3.4); Lymphocytes % (auto) 5.4 %; Mean Corpuscular Hgb Conc 32.5 g/dL (32-36); Mean Platelet Volume 10.4 fL (7.4-10.4); Monocytes # (auto) 1.12 K/uL (0.11-0.59); Monocytes % (auto) 8.8 %; Neutrophils # (auto) 10.84 K/uL (1.4-6.5); Neutrophils % (auto) 85.6 %; Platelet Count 178 K/uL (130-400); RDW Coefficient of Variation 19.4 % (11.5-14.5); RDW Standard Deviation 56.4 fL (36.4-46.3); White Blood Count 12.67 K/uL (4.8-10.8)
[2021-04-26 08:06] LABS: BUN Creatinine Ratio 18.8 (10-20); Calcium 8.2 mg/dl (8.5-10.1); Est GFR (African American) 44.6 ml/min; Est GFR (Non-African American) 38.5 ml/min; Potassium 4.5 mmol/L (3.5-5.1)
[2021-04-26] MEDS: cefTRIAXone SODIUM 2,000 MG in DEXTROSE 5% 50 ML IV SCH (08:55)
[2021-04-26] MEDS: ASCORBIC ACID 500 MG TAB PO SCH (08:58)
[2021-04-26] MEDS: FERROUS SULFATE 325 MG TAB PO SCH (09:00)
[2021-04-26] MEDS ORDERED: NON-FORMULARY MEDICATION (Iron,Carbonyl-Vitamin C [Vitron-C] 65 mg iron- 125 mg Tablet,Del PO SCH (09:00)
[2021-04-26] MEDS: CARBIDOPA/LEVODOPA 25-250 1 EA TAB PO SCH ×4 (09:00→20:06)
[2021-04-26] MEDS: CHOLECALCIFEROL 1,000 UNITS 25 MCG TAB PO SCH ×2 (09:01→20:06)
[2021-04-26] MEDS: dilTIAZem HCL 120 MG CAPCR PO SCH (09:02)
[2021-04-26] MEDS: ENTACAPONE 200 MG TAB PO SCH ×3 (09:02→16:28)
[2021-04-26] MEDS: ESCITALOPRAM OXALATE 10 MG TAB PO SCH (09:03)
[2021-04-26] MEDS: METOPROLOL TARTRATE 25 MG TAB PO SCH (10:03)
--- NOTE | 2021-04-26 10:13 | Hospitalist Progress Note ---
Date of Service April 26, 2021 Assessment & Plan (1) Back pain: Plan: With radiculopathy symptoms with possible disc herniation as per Ortho hx closed sacral fracture status post surgery (05/2020) Appreciate Ortho input and recommendation-plan. S/P #1 removal of posterior instrumentation L4-S1 including bilateral iliac bolts. #2 exploration of fusion L4-S1 including bilateral SI joint fusions. #3 lumbar decompression with bilateral medial facetectomies and foraminotomies L1- 2, L2-3 and L3-4. #4 posterior spinal fusion L1-L4. #5 patient posterior segmental instrumentation L1-S1. #6 interbody fusion L2-L3. #7 placement peek cage 8 x 22 mm at L2-L3. #8 placement of locally harvested morselized autograft in the posterior gutters. #9 placement infuse collagen sponge combined with master graft in the posterior lateral gutters and I factor in the interbody space on 04/25 MRI of the Lumbar Spine: IMPRESSION: 1. There is a 16 x 12 x 9 mm oval shaped nonenhancing focus posterior to the L3 vertebral body at the right paracentral location. This is concerning for an epidural abscess. An epidural hematoma or less likely disc fragment could also have a similar appearance. Surgical consultation advised. This results in moderate to severe right-sided central canal narrowing at the L3 level. This also results in severe right-sided neural foraminal narrowing. 2. L4-S1 posterior decompression and fusion. 3. Mild endplate edema and paravertebral edema at the L2-L3 level. There is associated endplate enhancement and paravertebral enhancement. Therefore, this concerning for a discitis/osteomyelitis at this level. Additional areas of endplate edema and enhancement within the T11-L2 levels is nonspecific and could be due to additional areas of osteomyelitis or chronic degenerative change. Moderate to severe multilevel central canal and bilateral neural foraminal narrowing as described above. 4. These findings were called/faxed to the referring physician following dictation. This morning patient has been doing good. Patient remains afebrile. His recent WBC is within normal limit. Blood cultures have been negative. There was a concern for epidural abscess on MRI however as per orthopedics there was no evidence of any epidural abscess or infected looking tissue. Will discontinue vancomycin/ceftriaxone. Pain management/DVT prophylaxis as per orthopedics. Work with PT/OT. (2) Uncontrolled hypertension, stage 1: Plan: We will continue with her home blood pressure medications We will give as needed hydralazine (3) Acute worsening of stage 3 chronic kidney disease: Plan: ARF secondary to illness, clinical dehydration with note of ketonuria Kidney function has been normalized with cautious amount of intravenous fluid. (4) Atrial fibrillation: Plan: AF on Coumadin, rate controlled, INR slightly supratherapeutic Dr. Marcelino stated to start coumadin tomorrow. (5) Parkinsons disease: Plan: Parkinson's disease, stable on regimen Has significant tremors involving the hands (6) DM type 2 (diabetes mellitus, type 2): Plan: DM 2 diet-controlled, well-controlled as of recent outpatient hemoglobin A1c of 6.3, December 2020 We will continue with SSI DVT prophylaxis. Coumadin INR goal between 2 and 3 if no procedural intervention SCDs for now Full code Patient requests for her brother to be updated of plan of care. Mr. Torrey PhanJr. thru contact #[phone].- Try to call the without any reply 04/25/2021 Admission and Anticipated Discharge Date Admission Date: April 24, 2021 Subjective Patient is awake, alert and oriented x3. Reports she does have back pain that she rates as 3 out of 10. Denies any chest pain, shortness of breath, abdominal pain. Denies any nausea or vomiting. Patient reports she lives with her son. Review of Systems Review of Systems: All systems reviewed & are unremarkable except as noted in HPI & below Physical Exam Physical Exam: General: A&Ox3 HENT: NCAT, MMM, EOMI Eyes: PERRLA Neck: Supple, normal range of motion CVS: normal rate and rhythm Resp: b/l decrease breath sounds Abdomen: Soft, ND/NT, +BS Extremities: No c/c/e Neuro: face symmetric, , no focal deficit Skin: warm and dry MSK: no joint swelling/erythema Back: not examined, KAVEH drain in place Monet catheter in place. Results & Data Results & Data ([facility]) Vital Signs (Past 12 Hours) Vital Signs Temp Pulse Pulse Resp BP BP Pulse Ox 04/26/21 08:01 96 H 04/26/21 07:00 37.1 C 118 H 20 131/78 96 04/26/21 03:04 37.2 C 112 H 18 127/72 94 04/25/21 23:45 109 H 04/25/21 23:29 36.9 C 95 H 18 94/62 L 95
[2021-04-26] MEDS: LIDOCAINE 5% 1 PATCH TD SCH (10:21)
[2021-04-26] MEDS: NYSTATIN POWDER 15GM BTL EXT SCH ×3 (10:32→20:09)
[2021-04-26] MEDS: METOPROLOL SUCC 25MG EXT REL TAB PO SCH (10:32)
[2021-04-26] MEDS: LORazepam 0.5 MG TAB PO SCH ×2 (10:32→20:14)
[2021-04-26] MEDS: INSULIN ASPART 100 UNITS/ML 3 ML PEN SC SCH ×4 (10:55→21:27)
[2021-04-26] MEDS ORDERED: VANCOMYCIN TROUGH ONE (11:30)
--- NOTE | 2021-04-26 12:13 | Orthopedic Progress Note ---
Date of Service April 26, 2021 Assessment & Plan (1) Neurogenic claudication due to lumbar spinal stenosis: Plan: Patient does appear comfortable status post multilevel decompression fusion. At this time would like her to continue with physical therapy occupational therapy and she would be a candidate for rehab placement as soon as a bed is available. Admission and Anticipated Discharge Date Admission Date: April 24, 2021 Subjective Back pain controlled leg symptoms improved. She still struggling with some bilateral leg numbness. Physical Exam Physical Exam: Patient is in the chair at the bedside. Skin strength testing. Appears comfortable. Results & Data ([facility]) Vital Signs (Past 12 Hours) Vital Signs Temp Pulse Pulse Resp BP BP Pulse Ox 04/26/21 11:00 36.5 C 120 H 20 128/83 97 04/26/21 08:01 96 H 04/26/21 07:00 37.1 C 118 H 20 131/78 96 04/26/21 03:04 37.2 C 112 H 18 127/72 94
[2021-04-26] MEDS: CALCITRIOL 0.25 MCG CAPSULE PO SCH (12:37)
[2021-04-26] MEDS: VALSARTAN 80 MG TAB PO SCH (12:37)
[2021-04-26] MEDS: RALOXIFENE HCL 60 MG TAB PO SCH (12:37)
[2021-04-26 16:05] LABS: INR 1.3 (0.9-1.1); Prothrombin Time 12.7 Seconds (9.0-12.0)
[2021-04-26] MEDS: ATORVASTATIN 40 MG TAB PO SCH (20:05)
[2021-04-26] MEDS: DOCUSATE SODIUM/SENNA 50/8.6MG TAB PO SCH (20:09)
[2021-04-27] MEDS: SODIUM CHLORIDE 0.9% 1000ML 1,000 ML IV SCH (03:04)
[2021-04-27] MEDS: POLYETHYLENE (MIRALAX) 17 GM PACK PO SCH ×3 (06:12→17:19)
[2021-04-27 07:41] LABS: Basophils # (auto) 0.01 K/uL (0-0.2); Basophils % (auto) 0.1 %; Eosinophils # (auto) 0.01 K/uL (0-0.5); Eosinophils % (auto) 0.1 %; Hematocrit (blood only) 22.3 % (37-47); Hemoglobin 7.2 g/dL (12.0-16.0); Immature Granulocytes # (auto) 0.02 K/uL (0.00-0.02); Immature Granulocytes % (auto) 0.2 %; Lymphocytes # (auto) 1.24 K/uL (1.2-3.4); Mean Corpuscular Hemoglobin 26.3 pg (25-34); Mean Corpuscular Hgb Conc 32.3 g/dL (32-36); Mean Corpuscular Volume 81.4 fL (80-100); Mean Platelet Volume 10.1 fL (7.4-10.4); Monocytes % (auto) 14.5 %; Neutrophils # (auto) 7.54 K/uL (1.4-6.5); Neutrophils % (auto) 73.1 %; Platelet Count 135 K/uL (130-400); RDW Standard Deviation 59.3 fL (36.4-46.3); Red Blood Count 2.74 M/uL (4.2-5.4); White Blood Count 10.32 K/uL (4.8-10.8)
[2021-04-27 07:58] LABS: INR 1.2 (0.9-1.1); Prothrombin Time 12.2 Seconds (9.0-12.0)
[2021-04-27] MEDS: METOPROLOL SUCC 25MG EXT REL TAB PO SCH (08:00)
[2021-04-27] MEDS: NYSTATIN POWDER 15GM BTL EXT SCH ×3 (08:00→21:39)
[2021-04-27] MEDS: ENTACAPONE 200 MG TAB PO SCH ×3 (08:00→15:58)
[2021-04-27] MEDS: LIDOCAINE 5% 1 PATCH TD SCH (08:00)
[2021-04-27] MEDS: LORazepam 0.5 MG TAB PO SCH ×2 (08:00→21:39)
[2021-04-27] MEDS: FERROUS SULFATE 325 MG TAB PO SCH (08:00)
[2021-04-27] MEDS: CHOLECALCIFEROL 1,000 UNITS 25 MCG TAB PO SCH ×2 (08:01→21:39)
[2021-04-27] MEDS: dilTIAZem HCL 120 MG CAPCR PO SCH (08:01)
[2021-04-27] MEDS: ESCITALOPRAM OXALATE 10 MG TAB PO SCH (08:01)
[2021-04-27] MEDS: ASCORBIC ACID 500 MG TAB PO SCH (08:01)
[2021-04-27] MEDS: CARBIDOPA/LEVODOPA 25-250 1 EA TAB PO SCH ×4 (08:01→21:38)
[2021-04-27 08:05] LABS: Anisocytosis Present; Ovalocytes 1+
[2021-04-27 08:08] LABS: Calcium 8.1 mg/dl (8.5-10.1); Creatinine Clr Calc Pharmacy 41.9 ml/min; Est GFR (African American) 47.1 ml/min; Est GFR (Non-African American) 40.7 ml/min; Magnesium 1.9 mg/dl (1.8-2.4)
[2021-04-27] MEDS: INSULIN ASPART 100 UNITS/ML 3 ML PEN SC SCH ×4 (08:08→21:39)
[2021-04-27 08:11] LABS: Phosphorus 2.3 mg/dl (2.5-4.9)
--- NOTE | 2021-04-27 11:13 | Orthopedic Progress Note ---
Date of Service April 27, 2021 Assessment & Plan (1) Neurogenic claudication due to lumbar spinal stenosis: Plan: Patient is improving appropriately. KAVEH drain decreasing well. Again I would strongly recommend that she consider rehab placement. Should be ready for discharge in the next few days from orthopedic standpoint. Admission and Anticipated Discharge Date Admission Date: April 24, 2021 Subjective Back pain is well controlled leg symptoms improved Physical Exam Physical Exam: Patient appears comfortable. She is distracted testing. Results & Data ([facility]) Vital Signs (Past 12 Hours) Vital Signs Temp Pulse Resp BP Pulse Ox 04/27/21 08:57 37.2 C 78 20 137/80 94 04/27/21 04:00 37.2 C 73 20 109/59 L 95 04/26/21 23:30 37.3 C 86 20 108/56 L 96
[2021-04-27] MEDS: VALSARTAN 80 MG TAB PO SCH (11:28)
[2021-04-27] MEDS: RALOXIFENE HCL 60 MG TAB PO SCH (11:28)
[2021-04-27] MEDS: CALCITRIOL 0.25 MCG CAPSULE PO SCH (11:28)
--- NOTE | 2021-04-27 12:42 | Hospitalist Progress Note ---
Date of Service April 27, 2021 Assessment & Plan (1) Back pain: Plan: With radiculopathy symptoms with possible disc herniation as per Ortho hx closed sacral fracture status post surgery (05/2020) Appreciate Ortho input and recommendation-plan. S/P #1 removal of posterior instrumentation L4-S1 including bilateral iliac bolts. #2 exploration of fusion L4-S1 including bilateral SI joint fusions. #3 lumbar decompression with bilateral medial facetectomies and foraminotomies L1- 2, L2-3 and L3-4. #4 posterior spinal fusion L1-L4. #5 patient posterior segmental instrumentation L1-S1. #6 interbody fusion L2-L3. #7 placement peek cage 8 x 22 mm at L2-L3. #8 placement of locally harvested morselized autograft in the posterior gutters. #9 placement infuse collagen sponge combined with master graft in the posterior lateral gutters and I factor in the interbody space on 04/25 MRI of the Lumbar Spine: IMPRESSION: 1. There is a 16 x 12 x 9 mm oval shaped nonenhancing focus posterior to the L3 vertebral body at the right paracentral location. This is concerning for an epidural abscess. An epidural hematoma or less likely disc fragment could also have a similar appearance. Surgical consultation advised. This results in moderate to severe right-sided central canal narrowing at the L3 level. This also results in severe right-sided neural foraminal narrowing. 2. L4-S1 posterior decompression and fusion. 3. Mild endplate edema and paravertebral edema at the L2-L3 level. There is associated endplate enhancement and paravertebral enhancement. Therefore, this concerning for a discitis/osteomyelitis at this level. Additional areas of endplate edema and enhancement within the T11-L2 levels is nonspecific and could be due to additional areas of osteomyelitis or chronic degenerative change. Moderate to severe multilevel central canal and bilateral neural foraminal narrowing as described above. 4. These findings were called/faxed to the referring physician following dictation. This morning patient has been doing good. Patient remains afebrile. Her recent WBC is within normal limit. Blood cultures have been negative. There was a concern for epidural abscess on MRI however as per orthopedics there was no evidence of any epidural abscess or infected looking tissue. Will discontinue vancomycin/ceftriaxone. Pain management/DVT prophylaxis as per orthopedics. Continue to work with PT/OT. D/C mIVF today. (2) Uncontrolled hypertension, stage 1: Plan: We will continue with her home blood pressure medications Will give as needed hydralazine (3) Acute worsening of stage 3 chronic kidney disease: Plan: ARF secondary to illness, clinical dehydration with note of ketonuria Kidney function has been normalized with cautious amount of intravenous fluid. (4) Atrial fibrillation: Plan: AF on Coumadin, rate controlled. Dr. Marcelino Ok with starting coumadin today. INR at 1.3 today. Will give 5 mg now. Monitor dialy INR. (5) Parkinsons disease: Plan: Parkinson's disease, stable on regimen Has significant tremors involving the hands (6) DM type 2 (diabetes mellitus, type 2): Plan: DM 2 diet-controlled, well-controlled as of recent outpatient hemoglobin A1c of 6.3, December 2020 We will continue with SSI DVT prophylaxis. Coumadin INR goal between 2 and 3 if no procedural intervention SCDs for now Full code Patient requests for her brother to be updated of plan of care. Mr. Hirsch Jr Emilie. thru contact #[phone].- Try to call the without any reply 04/25/2021 Admission and Anticipated Discharge Date Admission Date: April 24, 2021 Subjective Doing okay this morning. Reports pain is fairly well controlled. Denies any chest pain, shortness of breath or abdominal pain. Denies any nausea or vomiting. Rest of the review of system is negative. Review of Systems Review of Systems: All systems reviewed & are unremarkable except as noted in HPI & below Physical Exam Physical Exam: General: A&Ox3 HENT: NCAT, MMM, EOMI Eyes: PERRLA Neck: Supple, normal range of motion CVS: normal rate and rhythm Resp: b/l decrease breath sounds Abdomen: Soft, ND/NT, +BS Extremities: No c/c/e Neuro: face symmetric, , no focal deficit Skin: warm and dry MSK: no joint swelling/erythema Back: not examined, KAVEH drain in place Monet catheter in place. Results & Data Results & Data ([facility]) Vital Signs (Past 12 Hours) Vital Signs Temp Pulse Resp BP Pulse Ox 04/27/21 12:14 36.7 C 76 22 101/66 97 04/27/21 08:57 37.2 C 78 20 137/80 94 04/27/21 04:00 37.2 C 73 20 109/59 L 95
[2021-04-27] MEDS ORDERED: WARFARIN SOD 5 MG TAB PO ONE (16:00)
[2021-04-27] MEDS: ATORVASTATIN 40 MG TAB PO SCH (21:38)
[2021-04-27] MEDS: DOCUSATE SODIUM/SENNA 50/8.6MG TAB PO SCH (21:39)
[2021-04-28] MEDS: POLYETHYLENE (MIRALAX) 17 GM PACK PO SCH ×4 (00:34→18:01)
[2021-04-28] MEDS: INSULIN ASPART 100 UNITS/ML 3 ML PEN SC SCH ×4 (08:35→22:27)
[2021-04-28] MEDS: ASCORBIC ACID 500 MG TAB PO SCH (08:36)
[2021-04-28] MEDS: CHOLECALCIFEROL 1,000 UNITS 25 MCG TAB PO SCH ×2 (08:37→21:45)
[2021-04-28] MEDS: CARBIDOPA/LEVODOPA 25-250 1 EA TAB PO SCH ×4 (08:37→21:45)
[2021-04-28] MEDS: dilTIAZem HCL 120 MG CAPCR PO SCH (08:38)
[2021-04-28] MEDS: FERROUS SULFATE 325 MG TAB PO SCH (08:39)
[2021-04-28] MEDS: ENTACAPONE 200 MG TAB PO SCH ×3 (08:39→16:02)
[2021-04-28] MEDS: ESCITALOPRAM OXALATE 10 MG TAB PO SCH (08:39)
[2021-04-28] MEDS: LIDOCAINE 5% 1 PATCH TD SCH (08:40)
[2021-04-28] MEDS: LORazepam 0.5 MG TAB PO SCH ×2 (08:42→21:46)
[2021-04-28] MEDS: METOPROLOL SUCC 25MG EXT REL TAB PO SCH (08:43)
[2021-04-28] MEDS: NYSTATIN POWDER 15GM BTL EXT SCH ×3 (08:43→21:47)
[2021-04-28 09:01] LABS: Basophils # (auto) 0.02 K/uL (0-0.2); Basophils % (auto) 0.2 %; Eosinophils # (auto) 0.09 K/uL (0-0.5); Hematocrit (blood only) 23.4 % (37-47); Hemoglobin 7.6 g/dL (12.0-16.0); Immature Granulocytes # (auto) 0.04 K/uL (0.00-0.02); Immature Granulocytes % (auto) 0.4 %; Lymphocytes # (auto) 1.12 K/uL (1.2-3.4); Lymphocytes % (auto) 12.2 %; Mean Corpuscular Hemoglobin 26.1 pg (25-34); Mean Corpuscular Hgb Conc 32.5 g/dL (32-36); Mean Corpuscular Volume 80.4 fL (80-100); Mean Platelet Volume 10.1 fL (7.4-10.4); Monocytes # (auto) 1.01 K/uL (0.11-0.59); Neutrophils # (auto) 6.91 K/uL (1.4-6.5); Neutrophils % (auto) 75.2 %; Nucleated RBC # (auto) 0.02 K/uL (0-0); Nucleated RBC % (auto) 0.2 %; Platelet Count 155 K/uL (130-400); RDW Coefficient of Variation 20.1 % (11.5-14.5); RDW Standard Deviation 59.4 fL (36.4-46.3); Red Blood Count 2.91 M/uL (4.2-5.4); White Blood Count 9.19 K/uL (4.8-10.8)
[2021-04-28 09:34] LABS: BUN Creatinine Ratio 31.8 (10-20); Calcium 7.9 mg/dl (8.5-10.1); Creatinine Clr Calc Pharmacy 55.5 ml/min; Est GFR (African American) 65.5 ml/min; Est GFR (Non-African American) 56.5 ml/min; Potassium 3.9 mmol/L (3.5-5.1)
[2021-04-28 09:36] LABS: Acanthocytes 1+; Anisocytosis Present; Polychromasia 1+
--- NOTE | 2021-04-28 09:51 | Orthopedic Progress Note ---
Date of Service April 28, 2021 Assessment & Plan (1) Neurogenic claudication due to lumbar spinal stenosis: Plan: I would like to continue to encourage her to transfer to the chair and ambulate as tolerated. She is a excellent candidate for rehab in light of her health history of Parkinson's and extent of surgical procedure. Admission and Anticipated Discharge Date Admission Date: April 24, 2021 Subjective Back pain controlled leg symptoms improved Physical Exam Physical Exam: Patient is in bed at this time. Appears comfortable. Is good strength testing. Results & Data ([facility]) Vital Signs (Past 12 Hours) Vital Signs Temp Pulse Pulse Resp BP Pulse Ox 04/28/21 07:00 37.2 C 67 18 127/83 95 04/28/21 03:00 37.5 C 63 20 156/84 H 95 04/28/21 01:00 71 04/27/21 22:00 37.4 C 72 20 131/80 97
[2021-04-28] MEDS: RALOXIFENE HCL 60 MG TAB PO SCH (12:25)
[2021-04-28] MEDS: CALCITRIOL 0.25 MCG CAPSULE PO SCH (12:25)
[2021-04-28] MEDS: VALSARTAN 80 MG TAB PO SCH (12:26)
--- NOTE | 2021-04-28 14:17 | Hospitalist Progress Note ---
Date of Service April 28, 2021 Assessment & Plan (1) Back pain: Plan: With radiculopathy symptoms with possible disc herniation as per Ortho hx closed sacral fracture status post surgery (05/2020) Appreciate Ortho input and recommendation-plan. S/P #1 removal of posterior instrumentation L4-S1 including bilateral iliac bolts. #2 exploration of fusion L4-S1 including bilateral SI joint fusions. #3 lumbar decompression with bilateral medial facetectomies and foraminotomies L1- 2, L2-3 and L3-4. #4 posterior spinal fusion L1-L4. #5 patient posterior segmental instrumentation L1-S1. #6 interbody fusion L2-L3. #7 placement peek cage 8 x 22 mm at L2-L3. #8 placement of locally harvested morselized autograft in the posterior gutters. #9 placement infuse collagen sponge combined with master graft in the posterior lateral gutters and I factor in the interbody space on 04/25 MRI of the Lumbar Spine: IMPRESSION: 1. There is a 16 x 12 x 9 mm oval shaped nonenhancing focus posterior to the L3 vertebral body at the right paracentral location. This is concerning for an epidural abscess. An epidural hematoma or less likely disc fragment could also have a similar appearance. Surgical consultation advised. This results in moderate to severe right-sided central canal narrowing at the L3 level. This also results in severe right-sided neural foraminal narrowing. 2. L4-S1 posterior decompression and fusion. 3. Mild endplate edema and paravertebral edema at the L2-L3 level. There is associated endplate enhancement and paravertebral enhancement. Therefore, this concerning for a discitis/osteomyelitis at this level. Additional areas of endplate edema and enhancement within the T11-L2 levels is nonspecific and could be due to additional areas of osteomyelitis or chronic degenerative change. Moderate to severe multilevel central canal and bilateral neural foraminal narrowing as described above. 4. These findings were called/faxed to the referring physician following dictation. Patient remains afebrile. Her recent WBC is within normal limit. Blood cultures have been negative. There was a concern for epidural abscess on MRI however as per orthopedics there was no evidence of any epidural abscess or infected looking tissue. Will discontinue vancomycin/ceftriaxone. Pain management/DVT prophylaxis as per orthopedics. Continue to work with PT/OT.-Awaiting to go to Remains stable and denies any significant symptoms Discussed with the senior case manager and she will be transferred to tomorrow (2) Uncontrolled hypertension, stage 1: Plan: We will continue with her home blood pressure medications Will give as needed hydralazine Blood pressure remains controlled (3) Acute worsening of stage 3 chronic kidney disease: Plan: ARF secondary to illness, clinical dehydration with note of ketonuria Kidney function has been normalized with cautious amount of intravenous fluid. Creatinine remains stable and normal (4) Atrial fibrillation: Plan: AF on Coumadin, rate controlled. Dr. Marcelino Ok with starting coumadin today. INR at 1.3 today. Will give 5 mg now. Monitor dialy INR. We will check INR tomorrow (5) Parkinsons disease: Plan: Parkinson's disease, stable on regimen Has significant tremors involving the hands (6) DM type 2 (diabetes mellitus, type 2): Plan: DM 2 diet-controlled, well-controlled as of recent outpatient hemoglobin A1c of 6.3, December 2020 We will continue with SSI DVT prophylaxis. Coumadin INR goal between 2 and 3 if no procedural intervention SCDs for now Full code Patient requests for her brother to be updated of plan of care. Mr. Torrey GrimmJr amy. thru contact #[phone].- Admission and Anticipated Discharge Date Admission Date: April 24, 2021 Subjective 04/24/2021 The patient was seen and examined in medical telemetry unit She complains to have back pain which is worse with movement and he still has the weakness of the legs Denies any fever and/or chills and denies any problem with urine and bowel habit She will have back surgery tomorrow 04/25/2021 The patient was seen and examined in medical telemetry unit She is a status post L1-L3 lumbar decompression and fusion and removal of the hardware L4-S1 Has been having problem with speaking but otherwise no significant symptoms Noted to be low blood pressure likely secondary to dehydration and medication effect 04/28/2021 The patient was seen and examined in medical telemetry unit She has been feeling much better following surgery even though her leg symptoms have not improved that much She denies any other symptoms and ready to be discharged from the hospital Review of Systems Review of Systems: All systems reviewed and are unremarkable except as noted below Musculoskeletal: Back pain with occasional radiation to the legs Physical Exam Physical Exam: Lying in bed without any acute distress Constitutional: well developed, well nourished, + ill appearing and + obese Eyes: PERRL, conjunctivae normal, anicteric sclerae ENMT: external ear and nose normal, oropharynx normal Neck: trachea midline, no thyromegaly Respiratory: no respiratory distress and no cough Auscultation: lungs clear to auscultation bilaterally Cardiovascular: Rate/Rhythm: regular rate and regular rhythm; not tachycardic Heart Sounds: normal S1 and normal S2; no murmur Extremities: no edema Gastrointestinal (Abdomen): Inspection/Auscultation: normal bowel sounds; abdomen not distended Percussion/Palpation: abdomen soft; abdomen nontender Neurologic: Alert, awake and oriented x3. No focal sensory or motor deficit appreciated Results & Data Results & Data ([facility]) Vital Signs (Past 12 Hours) Vital Signs Temp Pulse Pulse Resp BP Pulse Ox 04/28/21 13:38 71 04/28/21 11:34 37.0 C 80 18 120/71 94 04/28/21 07:00 37.2 C 67 18 127/83 95 04/28/21 03:00 37.5 C 63 20 156/84 H 95 Laboratory Results Short CBC 04/28/21 Range/Units 08:44 WBC 9.19 (4.8-10.8) K/uL Hgb 7.6 L (12.0-16.0) g/dL Hct 23.4 L (37-47) % Plt Count 155 (130-400) K/uL BMP 04/28/21 08:44 Sodium 139 Potassium 3.9 Chloride 111 H Carbon Dioxide 25 BUN 31 H Creatinine 0.99 D Glucose 137 H Calcium 7.9 L Medications Administered Current Inpatient Medications Acetaminophen (Acetaminophen 500 Mg Tab) 1,000 mg PO Q8H PRN PRN Reason: MILD Pain Scale 1,2,3 & Pre PT Stop: 05/25/21 18:54 Al Hydrox/Mg Hydrox/Simethicone (Aluminum/Magnesium Susp 30 Ml Udc) 30 ml PO Q6H PRN PRN Reason: Dyspepsia Stop: 05/25/21 18:54 Ascorbic Acid (Ascorbic Acid 500 Mg Tab) 125 mg PO DAILY [facility] Stop: 05/26/21 08:59 Last Admin: 04/28/21 08:36 Dose: 125 mg Documented by: Atorvastatin Calcium (Atorvastatin 40 Mg Tab) 80 mg PO QPM [facility] Stop: 05/25/21 20:59 Last Admin: 04/27/21 21:38 Dose: 80 mg Documented by: Bisacodyl (Bisacodyl 10 Mg Supp) [address] DAILY PRN PRN Reason: Constipation Stop: 05/25/21 18:54 Calcitriol (Calcitriol 0.25 Mcg Capsule) 0.5 mcg PO QDL [facility] Stop: 05/26/21 11:29 Last Admin: 04/28/21 12:25 Dose: 0.5 mcg Documented by: Carbidopa/Levodopa (Carbidopa/Levodopa 25-250 1 Ea Tab) 1 tab PO QID@0900,1200,1600,2100 [facility] Stop: 05/23/21 08:59 Last Admin: 04/28/21 12:26 Dose: 1 tab Documented by: Dextrose (Dextrose 50% 50 Ml Syringe) 25 - 50 ml IV UD PRN; Protocol PRN Reason: Hypoglycemia Protocol Stop: 05/23/21 04:49 Diltiazem HCl (Diltiazem Hcl 120 Mg Capcr) 120 mg PO QAM [facility] Stop: 05/23/21 08:59 Last Admin: 04/28/21 08:38 Dose: 120 mg Documented by: Diphenhydramine HCl (Diphenhydramine Capsule 25 Mg Cap) 25 mg PO Q6H PRN PRN Reason: Allergic Rhinitis/Insomnia Stop: 05/25/21 18:54 Docusate Sodium (Docusate Sodium 100 Mg Cap) 200 mg PO DAILY PRN PRN Reason: Constipation Stop: 05/23/21 04:49 Last Admin: 04/26/21 17:59 Dose: 200 mg Documented by: Entacapone (Entacapone 200 Mg Tab) 200 mg PO TID@0900,1200,1600 [facility] Stop: 05/23/21 07:59 Last Admin: 04/28/21 12:26 Dose: 200 mg Documented by: Escitalopram Oxalate (Escitalopram Oxalate 10 Mg Tab) 10 mg PO QAM [facility] Stop: 05/23/21 08:59 Last Admin: 04/28/21 08:39 Dose: 10 mg Documented by: Famotidine (Famotidine 20 Mg Tab) 20 mg PO Q12H PRN PRN Reason: Dyspepsia Stop: 05/25/21 18:54 Ferrous Sulfate (Ferrous Sulfate 325 Mg Tab) 325 mg PO DAILY [facility] Stop: 05/26/21 08:59 Last Admin: 04/28/21 08:39 Dose: 325 mg Documented by: Glucagon (Glucagon For Inj 1 Mg Vial) 1 mg SQ UD PRN; Protocol PRN Reason: Hypoglycemia Protocol Stop: 05/23/21 04:49 Glucose (Glucose 10 Tabs/Tube) 4 - 8 tabs PO UD PRN; Protocol PRN Reason: Hypoglycemia Protocol Stop: 05/23/21 04:49 Glucose (Glucose 40% Gel 15 Gm Tube) 15 - 30 gm PO UD PRN; Protocol PRN Reason: Hypoglycemia Protocol Stop: 05/23/21 04:49 Hydromorphone HCl (Hydromorphone Inj 0.5 Mg/0.5 Ml Syr) 0.25 mg IV Q6H PRN PRN Reason: Pain Stop: 05/07/21 04:49 Last Admin: 04/23/21 10:39 Dose: 0.25 mg Documented by: Hydromorphone HCl (Hydromorphone Inj 0.5 Mg/0.5 Ml Syr) 0.5 mg IV Q3H PRN PRN Reason: MODERATE Pain (Scale 4,5,6) & Pre PT Stop: 05/09/21 18:54 Hydromorphone HCl (Hydromorphone Inj 1 Mg/Ml Syringe) 1 mg IV Q3H PRN PRN Reason: SEVERE Pain (Scale 7,8,9,10) Stop: 05/09/21 18:54 Hydroxyzine HCl (Hydroxyzine Hcl 25 Mg Tab) 25 mg PO Q8H PRN PRN Reason: Anxiety Stop: 05/25/21 18:54 Promethazine HCl 12.5 mg/ (Sodium Chloride) 50.5 mls @ 202 mls/hr IV Q6H PRN PRN Reason: Nausea And Vomiting Stop: 05/23/21 04:49 Promethazine HCl 12.5 mg/ (Sodium Chloride) 50.5 mls @ 202 mls/hr IV Q6H PRN PRN Reason: Nausea &/or Vomiting Stop: 05/25/21 18:54 Acetaminophen (Ofirmev) 1,000 mg in 100 mls @ 400 mls/hr IV Q8H PRN PRN Reason: Pain Rating 1-3 & Pre PT Stop: 04/28/21 18:54 Lorazepam (Ativan) 0.5 mg in 1 mls @ 1 mls/min IV Q8H PRN PRN Reason: Sedation/Anxiety Stop: 05/25/21 18:54 Influenza Virus Vaccine Quadrival (Do Not Administer Flu Vaccine) 1 ea N/A PRN PRN PRN Reason: Notification Stop: 05/25/21 18:54 Insulin Aspart (Insulin Aspart 100 Units/Ml 3 Ml Pen) 0 units SC ACHS [facility] Stop: 05/23/21 07:29 Last Admin: 04/28/21 12:28 Dose: 3 units Documented by: Lidocaine (Lidocaine 5% 1 Patch) 1 patch TD [facility] Stop: 05/23/21 05:59 Last Admin: 04/28/21 08:40 Dose: 1 patch Documented by: Lorazepam (Lorazepam 0.5 Mg Tab) 0.5 mg PO BID [facility] Stop: 05/23/21 08:59 Last Admin: 04/28/21 08:42 Dose: 0.5 mg Documented by: Lorazepam (Lorazepam 0.5 Mg Tab) 0.5 mg PO Q8H PRN PRN Reason: Sedation/Anxiety Stop: 05/25/21 18:54 Magnesium Hydroxide (Magnesium Hydroxide Susp 30 Ml Udc) 30 ml PO Q24H PRN PRN Reason: Constipation Stop: 05/25/21 18:54 Metoclopramide HCl (Metoclopramide Hcl Inj 5 Mg/Ml 2 Ml Vial) 10 mg IV Q6H PRN PRN Reason: Nausea &/or Vomiting Stop: 05/25/21 18:54 Metoprolol Succinate (Metoprolol Succ 25mg Ext Rel Tab) 25 mg PO [facility] Stop: 05/25/21 08:59 Last Admin: 04/28/21 08:43 Dose: 25 mg Documented by: Miscellaneous (Carbohydrates For Hypoglycemia ) 15 - 30 gm PO UD PRN PRN Reason: Hypoglycemia Protocol Stop: 05/23/21 04:49 Miscellaneous (Remove Lidoderm Patch) 1 ea N/A DAILY@2100 [facility] Stop: 05/23/21 20:59 Last Admin: 04/27/21 21:39 Dose: 1 ea Documented by: Naloxone HCl (Naloxone Hcl 0.4 Mg/1 Ml Vial/Carp) 0.1 mg IV Q5M PRN PRN Reason: Oversedation/Resp depression Stop: 05/25/21 18:54 Nystatin (Nystatin Powder 15gm Btl) 1 appln EXT TID [facility] Stop: 05/25/21 18:54 Last Admin: 04/28/21 08:43 Dose: 1 appln Documented by: Ondansetron HCl (Ondansetron Inj 2 Mg/Ml 2 Ml Vial) 4 mg IV Q6H PRN PRN Reason: Nausea &/or Vomiting Stop: 05/25/21 18:54 Ondansetron HCl (Ondansetron 4 Mg Od Tab) 4 mg PO Q6H PRN PRN Reason: Nausea Stop: 05/25/21 18:54 Oxycodone HCl (Oxycodone Hcl Ir 5 Mg Tab (Immediate Release)) 5 mg PO Q4H PRN PRN Reason: Pain Stop: 05/07/21 04:49 Oxycodone HCl (Oxycodone Hcl Ir 5 Mg Tab (Immediate Release)) 5 - 10 mg PO Q4H PRN PRN Reason: Pain & Pre PT Stop: 05/09/21 18:54 Pneumococcal Polyvalent Vaccine (Do Not Administer Pneumococcal Vaccine) 1 ea N/A PRN PRN PRN Reason: Notification Stop: 05/25/21 18:54 Polyethylene Glycol (Polyethylene (Miralax) 17 Gm Pack) 17 gm PO BID PRN PRN Reason: Constipation Stop: 05/23/21 04:49 Last Admin: 04/28/21 08:52 Dose: 17 gm Documented by: Polyethylene Glycol (Polyethylene (Miralax) 17 Gm Pack) 17 gm PO Q6 [facility] Stop: 05/26/21 05:59 Last Admin: 04/28/21 12:30 Dose: Not Given Documented by: Raloxifene HCl (Raloxifene Hcl 60 Mg Tab) 60 mg PO QDL [facility] Stop: 05/26/21 11:29 Last Admin: 04/28/21 12:25 Dose: 60 mg Documented by: Senna/Docusate Sodium (Docusate Sodium/Senna 50/8.6mg Tab) 2 tab PO HS [facility] Stop: 05/25/21 20:59 Last Admin: 04/27/21 21:39 Dose: 2 tab Documented by: Sodium Biphosphate/Sodium Phosphate (Sod Phosphate/Sod Biphosphate Enema 132 Ml Btl) [address] ONE PRN PRN Reason: Constipation Stop: 05/25/21 18:54 Tramadol HCl (Tramadol Hcl 50 Mg Tablet) 50 - 100 mg PO Q4H PRN PRN Reason: Moderate-Severe pain & Pre PT Stop: 05/25/21 18:54 Valsartan (Valsartan 80 Mg Tab) 80 mg PO QDL [facility] Stop: 05/26/21 11:29 Last Admin: 04/28/21 12:26 Dose: 80 mg Documented by: Vitamin D (Cholecalciferol 1,000 Units 25 Mcg Tab) 2,000 units PO BID [facility] Stop: 05/25/21 20:59 Last Admin: 04/28/21 08:37 Dose: 2,000 units Documented by:
[2021-04-28] MEDS: ATORVASTATIN 40 MG TAB PO SCH (21:44)
[2021-04-28] MEDS: DOCUSATE SODIUM/SENNA 50/8.6MG TAB PO SCH (21:46)
[2021-04-29] MEDS: POLYETHYLENE (MIRALAX) 17 GM PACK PO SCH ×3 (02:01→11:05)
--- NOTE | 2021-04-29 08:00 | Orthopedic Progress Note ---
Date of Service April 29, 2021 Assessment & Plan (1) Neurogenic claudication due to lumbar spinal stenosis: Plan: Continue with pain control efforts GI DVT prophylaxis as well continue to mobilize with physical therapy patient is likely need rehab due to her persist ent and chronic weakness. We will continue to follow. Admission and Anticipated Discharge Date Admission Date: April 24, 2021 Subjective Patient is resting comfortably complains of back pain and leg weakness tolerating p.o. Denies any other numbness, tingling, or paresthesias. Physical Exam Physical Exam: On exam patient is arousable. Her abdomen soft and nontender. Calves are supple nontender. Dressings clean dry and intact. Results & Data ([facility]) Vital Signs (Past 12 Hours) Vital Signs Temp Pulse Pulse Resp BP Pulse Ox 04/29/21 06:20 57 L 04/29/21 03:00 36.8 C 60 20 151/71 H 95 04/28/21 22:00 37.5 C 80 20 167/52 H 95 04/28/21 20:00 37.2 C 81 20 128/47 L 93
[2021-04-29] MEDS: INSULIN ASPART 100 UNITS/ML 3 ML PEN SC SCH ×2 (08:49→12:24)
[2021-04-29 09:32] LABS: INR 1.2 (0.9-1.1); Prothrombin Time 12.1 Seconds (9.0-12.0)
--- NOTE | 2021-04-29 10:39 | Hospitalist Progress Note ---
Date of Service April 29, 2021 Assessment & Plan (1) Back pain: Plan: With radiculopathy symptoms with possible disc herniation as per Ortho hx closed sacral fracture status post surgery (05/2020) Appreciate Ortho input and recommendation-plan. S/P #1 removal of posterior instrumentation L4-S1 including bilateral iliac bolts. #2 exploration of fusion L4-S1 including bilateral SI joint fusions. #3 lumbar decompression with bilateral medial facetectomies and foraminotomies L1- 2, L2-3 and L3-4. #4 posterior spinal fusion L1-L4. #5 patient posterior segmental instrumentation L1-S1. #6 interbody fusion L2-L3. #7 placement peek cage 8 x 22 mm at L2-L3. #8 placement of locally harvested morselized autograft in the posterior gutters. #9 placement infuse collagen sponge combined with master graft in the posterior lateral gutters and I factor in the interbody space on 04/25 MRI of the Lumbar Spine: IMPRESSION: 1. There is a 16 x 12 x 9 mm oval shaped nonenhancing focus posterior to the L3 vertebral body at the right paracentral location. This is concerning for an epidural abscess. An epidural hematoma or less likely disc fragment could also have a similar appearance. Surgical consultation advised. This results in moderate to severe right-sided central canal narrowing at the L3 level. This also results in severe right-sided neural foraminal narrowing. 2. L4-S1 posterior decompression and fusion. 3. Mild endplate edema and paravertebral edema at the L2-L3 level. There is associated endplate enhancement and paravertebral enhancement. Therefore, this concerning for a discitis/osteomyelitis at this level. Additional areas of endplate edema and enhancement within the T11-L2 levels is nonspecific and could be due to additional areas of osteomyelitis or chronic degenerative change. Moderate to severe multilevel central canal and bilateral neural foraminal narrowing as described above. 4. These findings were called/faxed to the referring physician following dictation. Patient remains afebrile. Her recent WBC is within normal limit. Blood cultures have been negative. There was a concern for epidural abscess on MRI however as per orthopedics there was no evidence of any epidural abscess or infected looking tissue. Will discontinue vancomycin/ceftriaxone. Pain management/DVT prophylaxis as per orthopedics. Continue to work with PT/OT.-Awaiting to go to [facility] Remains stable and denies any significant symptoms Medically stable to be transferred to [facility] this afternoon (2) Uncontrolled hypertension, stage 1: Plan: We will continue with her home blood pressure medications Will give as needed hydralazine Blood pressure remains controlled (3) Acute worsening of stage 3 chronic kidney disease: Plan: ARF secondary to illness, clinical dehydration with note of ketonuria Kidney function has been normalized with cautious amount of intravenous fluid. Creatinine remains stable and normal (4) Atrial fibrillation: Plan: AF on Coumadin, rate controlled. Dr. Marcelino Ok with starting coumadin today. INR at 1.3 today. Will give 5 mg now. Monitor dialy INR. We will check INR tomorrow-1.2 today We will continue current dose of Coumadin-INR should be checked in 2 days in the facility (5) Parkinsons disease: Plan: Parkinson's disease, stable on regimen Has significant tremors involving the hands (6) DM type 2 (diabetes mellitus, type 2): Plan: DM 2 diet-controlled, well-controlled as of recent outpatient hemoglobin A1c of 6.3, December 2020 We will continue with SSI We will continue with her outpatient medications for diabetes DVT prophylaxis. Coumadin INR goal between 2 and 3 if no procedural intervention SCDs for now Full code Patient requests for her brother to be updated of plan of care. Julissa Phan Jr. thru contact #[phone].- Discharge to [facility] this afternoon Admission and Anticipated Discharge Date Admission Date: April 24, 2021 Subjective 04/24/2021 The patient was seen and examined in medical telemetry unit She complains to have back pain which is worse with movement and he still has the weakness of the legs Denies any fever and/or chills and denies any problem with urine and bowel habit She will have back surgery tomorrow 04/25/2021 The patient was seen and examined in medical telemetry unit She is a status post L1-L3 lumbar decompression and fusion and removal of the hardware L4-S1 Has been having problem with speaking but otherwise no significant symptoms Noted to be low blood pressure likely secondary to dehydration and medication effect 04/28/2021 The patient was seen and examined in medical telemetry unit She has been feeling much better following surgery even though her leg symptoms have not improved that much She denies any other symptoms and ready to be discharged from the hospital 04/29/2021 The patient was seen and examined in medical telemetry unit She has been feeling much better and denies any significant pain at the back Denies any numbness and or tingling in the extremities She will be transferred to rehab this afternoon Review of Systems Review of Systems: All systems reviewed and are unremarkable except as noted below Musculoskeletal: Back pain with occasional radiation to the legs Physical Exam Physical Exam: Lying in bed without any acute distress Constitutional: well developed, well nourished, + ill appearing and + obese Eyes: PERRL, conjunctivae normal, anicteric sclerae ENMT: external ear and nose normal, oropharynx normal Neck: trachea midline, no thyromegaly Respiratory: no respiratory distress and no cough Auscultation: lungs clear to auscultation bilaterally Cardiovascular: Rate/Rhythm: regular rate and regular rhythm; not tachycardic Heart Sounds: normal S1 and normal S2; no murmur Extremities: no edema Gastrointestinal (Abdomen): Inspection/Auscultation: normal bowel sounds; abdomen not distended Percussion/Palpation: abdomen soft; abdomen nontender Musculoskeletal: No acute arthritis in any joint Neurologic: Alert, awake and oriented x3. No focal sensory or motor deficit appreciated Psychiatric: A+Ox3, euthymic affect Lymphatic: no cervical or axillary lymphadenopathy Results & Data Results & Data ([facility]) Vital Signs (Past 12 Hours) Vital Signs Temp Pulse Pulse Resp BP Pulse Ox 04/29/21 08:00 36.4 C L 67 18 148/82 H 91 04/29/21 06:20 57 L 04/29/21 03:00 36.8 C 60 20 151/71 H 95 Medications Administered Current Inpatient Medications Acetaminophen (Acetaminophen 500 Mg Tab) 1,000 mg PO Q8H PRN PRN Reason: MILD Pain Scale 1,2,3 & Pre PT Stop: 05/25/21 18:54 Last Admin: 04/29/21 00:07 Dose: 1,000 mg Documented by: Al Hydrox/Mg Hydrox/Simethicone (Aluminum/Magnesium Susp 30 Ml Udc) 30 ml PO Q6H PRN PRN Reason: Dyspepsia Stop: 05/25/21 18:54 Ascorbic Acid (Ascorbic Acid 500 Mg Tab) 125 mg PO DAILY [facility]STAL Stop: 05/26/21 08:59 Last Admin: 04/28/21 08:36 Dose: 125 mg Documented by: Atorvastatin Calcium (Atorvastatin 40 Mg Tab) 80 mg PO QPM C[facility]STAL Stop: 05/25/21 20:59 Last Admin: 04/28/21 21:44 Dose: 80 mg Documented by: Bisacodyl (Bisacodyl 10 Mg Supp) 10 mg MI DAILY PRN PRN Reason: Constipation Stop: 05/25/21 18:54 Calcitriol (Calcitriol 0.25 Mcg Capsule) 0.5 mcg PO QDL [facility]STAL Stop: 05/26/21 11:29 Last Admin: 04/28/21 12:25 Dose: 0.5 mcg Documented by: Carbidopa/Levodopa (Carbidopa/Levodopa 25-250 1 Ea Tab) 1 tab PO QID@0900,1200,1600,2100 [facility] Stop: 05/23/21 08:59 Last Admin: 04/28/21 21:45 Dose: 1 tab Documented by: Dextrose (Dextrose 50% 50 Ml Syringe) 25 - 50 ml IV UD PRN; Protocol PRN Reason: Hypoglycemia Protocol Stop: 05/23/21 04:49 Diltiazem HCl (Diltiazem Hcl 120 Mg Capcr) 120 mg PO QAM [facility]STAL Stop: 05/23/21 08:59 Last Admin: 04/28/21 08:38 Dose: 120 mg Documented by: Diphenhydramine HCl (Diphenhydramine Capsule 25 Mg Cap) 25 mg PO Q6H PRN PRN Reason: Allergic Rhinitis/Insomnia Stop: 05/25/21 18:54 Docusate Sodium (Docusate Sodium 100 Mg Cap) 200 mg PO DAILY PRN PRN Reason: Constipation Stop: 05/23/21 04:49 Last Admin: 04/26/21 17:59 Dose: 200 mg Documented by: Entacapone (Entacapone 200 Mg Tab) 200 mg PO TID@0900,1200,1600 [facility]STAL Stop: 05/23/21 07:59 Last Admin: 04/28/21 16:02 Dose: 200 mg Documented by: Escitalopram Oxalate (Escitalopram Oxalate 10 Mg Tab) 10 mg PO QAM CRISTAL Stop: 05/23/21 08:59 Last Admin: 04/28/21 08:39 Dose: 10 mg Documented by: Famotidine (Famotidine 20 Mg Tab) 20 mg PO Q12H PRN PRN Reason: Dyspepsia Stop: 05/25/21 18:54 Ferrous Sulfate (Ferrous Sulfate 325 Mg Tab) 325 mg PO DAILY CRISTAL Stop: 05/26/21 08:59 Last Admin: 04/28/21 08:39 Dose: 325 mg Documented by: Glucagon (Glucagon For Inj 1 Mg Vial) 1 mg SQ UD PRN; Protocol PRN Reason: Hypoglycemia Protocol Stop: 05/23/21 04:49 Glucose (Glucose 10 Tabs/Tube) 4 - 8 tabs PO UD PRN; Protocol PRN Reason: Hypoglycemia Protocol Stop: 05/23/21 04:49 Glucose (Glucose 40% Gel 15 Gm Tube) 15 - 30 gm PO UD PRN; Protocol PRN Reason: Hypoglycemia Protocol Stop: 05/23/21 04:49 Hydromorphone HCl (Hydromorphone Inj 0.5 Mg/0.5 Ml Syr) 0.25 mg IV Q6H PRN PRN Reason: Pain Stop: 05/07/21 04:49 Last Admin: 04/23/21 10:39 Dose: 0.25 mg Documented by: Hydromorphone HCl (Hydromorphone Inj 0.5 Mg/0.5 Ml Syr) 0.5 mg IV Q3H PRN PRN Reason: MODERATE Pain (Scale 4,5,6) & Pre PT Stop: 05/09/21 18:54 Hydromorphone HCl (Hydromorphone Inj 1 Mg/Ml Syringe) 1 mg IV Q3H PRN PRN Reason: SEVERE Pain (Scale 7,8,9,10) Stop: 05/09/21 18:54 Hydroxyzine HCl (Hydroxyzine Hcl 25 Mg Tab) 25 mg PO Q8H PRN PRN Reason: Anxiety Stop: 05/25/21 18:54 Promethazine HCl 12.5 mg/ (Sodium Chloride) 50.5 mls @ 202 mls/hr IV Q6H PRN PRN Reason: Nausea And Vomiting Stop: 05/23/21 04:49 Promethazine HCl 12.5 mg/ (Sodium Chloride) 50.5 mls @ 202 mls/hr IV Q6H PRN PRN Reason: Nausea &/or Vomiting Stop: 05/25/21 18:54 Lorazepam (Ativan) 0.5 mg in 1 mls @ 1 mls/min IV Q8H PRN PRN Reason: Sedation/Anxiety Stop: 05/25/21 18:54 Influenza Virus Vaccine Quadrival (Do Not Administer Flu Vaccine) 1 ea N/A PRN PRN PRN Reason: Notification Stop: 05/25/21 18:54 Insulin Aspart (Insulin Aspart 100 Units/Ml 3 Ml Pen) 0 units SC ACHS [facility] Stop: 05/23/21 07:29 Last Admin: 04/29/21 08:49 Dose: Not Given Documented by: Lidocaine (Lidocaine 5% 1 Patch) 1 patch TD [facility] Stop: 05/23/21 05:59 Last Admin: 04/28/21 08:40 Dose: 1 patch Documented by: Lorazepam (Lorazepam 0.5 Mg Tab) 0.5 mg PO BID [facility] Stop: 05/23/21 08:59 Last Admin: 04/28/21 21:46 Dose: 0.5 mg Documented by: Lorazepam (Lorazepam 0.5 Mg Tab) 0.5 mg PO Q8H PRN PRN Reason: Sedation/Anxiety Stop: 05/25/21 18:54 Magnesium Hydroxide (Magnesium Hydroxide Susp 30 Ml Udc) 30 ml PO Q24H PRN PRN Reason: Constipation Stop: 05/25/21 18:54 Metoclopramide HCl (Metoclopramide Hcl Inj 5 Mg/Ml 2 Ml Vial) 10 mg IV Q6H PRN PRN Reason: Nausea &/or Vomiting Stop: 05/25/21 18:54 Metoprolol Succinate (Metoprolol Succ 25mg Ext Rel Tab) 25 mg PO [facility] Stop: 05/25/21 08:59 Last Admin: 04/28/21 08:43 Dose: 25 mg Documented by: Miscellaneous (Carbohydrates For Hypoglycemia ) 15 - 30 gm PO UD PRN PRN Reason: Hypoglycemia Protocol Stop: 05/23/21 04:49 Miscellaneous (Remove Lidoderm Patch) 1 ea N/A DAILY@2100 [facility] Stop: 05/23/21 20:59 Last Admin: 04/28/21 21:47 Dose: 1 ea Documented by: Naloxone HCl (Naloxone Hcl 0.4 Mg/1 Ml Vial/Carp) 0.1 mg IV Q5M PRN PRN Reason: Oversedation/Resp depression Stop: 05/25/21 18:54 Nystatin (Nystatin Powder 15gm Btl) 1 appln EXT TID [facility] Stop: 05/25/21 18:54 Last Admin: 04/28/21 21:47 Dose: 1 appln Documented by: Ondansetron HCl (Ondansetron Inj 2 Mg/Ml 2 Ml Vial) 4 mg IV Q6H PRN PRN Reason: Nausea &/or Vomiting Stop: 05/25/21 18:54 Ondansetron HCl (Ondansetron 4 Mg Od Tab) 4 mg PO Q6H PRN PRN Reason: Nausea Stop: 05/25/21 18:54 Oxycodone HCl (Oxycodone Hcl Ir 5 Mg Tab (Immediate Release)) 5 mg PO Q4H PRN PRN Reason: Pain Stop: 05/07/21 04:49 Oxycodone HCl (Oxycodone Hcl Ir 5 Mg Tab (Immediate Release)) 5 - 10 mg PO Q4H PRN PRN Reason: Pain & Pre PT Stop: 05/09/21 18:54 Pneumococcal Polyvalent Vaccine (Do Not Administer Pneumococcal Vaccine) 1 ea N/A PRN PRN PRN Reason: Notification Stop: 05/25/21 18:54 Polyethylene Glycol (Polyethylene (Miralax) 17 Gm Pack) 17 gm PO BID PRN PRN Reason: Constipation Stop: 05/23/21 04:49 Last Admin: 04/28/21 08:52 Dose: 17 gm Documented by: Polyethylene Glycol (Polyethylene (Miralax) 17 Gm Pack) 17 gm PO Q6 [facility] Stop: 05/26/21 05:59 Last Admin: 04/29/21 06:14 Dose: 17 gm Documented by: Raloxifene HCl (Raloxifene Hcl 60 Mg Tab) 60 mg PO QDL [facility] Stop: 05/26/21 11:29 Last Admin: 04/28/21 12:25 Dose: 60 mg Documented by: Senna/Docusate Sodium (Docusate Sodium/Senna 50/8.6mg Tab) 2 tab PO HS [facility] Stop: 05/25/21 20:59 Last Admin: 04/28/21 21:46 Dose: 2 tab Documented by: Sodium Biphosphate/Sodium Phosphate (Sod Phosphate/Sod Biphosphate Enema 132 Ml Btl) 132 ml MI ONE PRN PRN Reason: Constipation Stop: 05/25/21 18:54 Tramadol HCl (Tramadol Hcl 50 Mg Tablet) 50 - 100 mg PO Q4H PRN PRN Reason: Moderate-Severe pain & Pre PT Stop: 05/25/21 18:54 Valsartan (Valsartan 80 Mg Tab) 80 mg PO QDL [facility] Stop: 05/26/21 11:29 Last Admin: 04/28/21 12:26 Dose: 80 mg Documented by: Vitamin D (Cholecalciferol 1,000 Units 25 Mcg Tab) 2,000 units PO BID [facility] Stop: 05/25/21 20:59 Last Admin: 04/28/21 21:45 Dose: 2,000 units Documented by:
[2021-04-29] MEDS: ASCORBIC ACID 500 MG TAB PO SCH (11:00)
[2021-04-29] MEDS: dilTIAZem HCL 120 MG CAPCR PO SCH (11:02)
[2021-04-29] MEDS: CARBIDOPA/LEVODOPA 25-250 1 EA TAB PO SCH ×2 (11:02→13:50)
[2021-04-29] MEDS: ENTACAPONE 200 MG TAB PO SCH ×2 (11:02→13:50)
[2021-04-29] MEDS: CHOLECALCIFEROL 1,000 UNITS 25 MCG TAB PO SCH (11:02)
[2021-04-29] MEDS: ESCITALOPRAM OXALATE 10 MG TAB PO SCH (11:03)
[2021-04-29] MEDS: LORazepam 0.5 MG TAB PO SCH (11:03)
[2021-04-29] MEDS: FERROUS SULFATE 325 MG TAB PO SCH (11:03)
[2021-04-29] MEDS: METOPROLOL SUCC 25MG EXT REL TAB PO SCH (11:03)
[2021-04-29] MEDS: CALCITRIOL 0.25 MCG CAPSULE PO SCH (11:04)
[2021-04-29] MEDS: VALSARTAN 80 MG TAB PO SCH (11:04)
[2021-04-29] MEDS: RALOXIFENE HCL 60 MG TAB PO SCH (11:04)
[2021-04-29] MEDS: NYSTATIN POWDER 15GM BTL EXT SCH (11:04)
[2021-04-29] MEDS: LIDOCAINE 5% 1 PATCH TD SCH (11:08)
--- NOTE | 2021-04-30 07:14 | Discharge Summary ---
Date of Service April 30, 2021 Admission HPI Per Admitting Provider Chief Complaint: Worsening low back pain Primary Care Provider: Titi Baez DO History obtained from patient and records. Medical history significant for PAF on Coumadin, hypertension, hyperlipidemia, Parkinson's disease, DM 2 diet-controlled, hx closed sacral fracture status post surgery (05/2020). Last confinement September 2020 for other dysfunction with recurrent falls, rhabdomyolysis. Patient discharged to rehab initially then back to her home. Patient seen at PCPs office last week of February 2021 for follow-up visit. Patient having more trouble moving around at home and weak legs. Patient declined home health PT and care home placement on multiple occasions as per documentation. Last month, patient noted achy low back pain symptoms with some radiation to the left lower leg. No fever, no chills, no unusual weakness or incontinence. Patient declined ER consultation as per outpatient notes. Worsening discomfort over the next few weeks with fever, chills, weakness and fatigue. Back pain worse with movement and better with rest. Patient unable to stand due to pain. Patient denies chest pain, S OB. Cefepime administered at the ER. 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 Admission Exam Per Admitting Provider Physical Exam: GENERAL: Slightly uncomfortable, masklike facies, no respiratory distress, obese SKIN: Normal color, warm HEENT: Bespectacled, pink palpebral conjunctivae, no ptosis, dry buccal mucosa NECK : Supple, short neck, no tenderness CHEST : CTA, no tenderness HEART : Irregular, systolic murmur ABDOMEN: Some distention, nontender BACK : Low back tenderness, positive straight leg raise test EXTREMITIES : Minimal LE swelling, no LE tenderness, no other conspicuous defor mities noted NEUROLOGIC : Coherent, no facial asymmetry, gait and stance not assessed Principal Diagnosis Lumbar spinal stenosis with neurogenic claudication Discharge Exam Constitutional well developed, well nourished, + ill appearing and + obese Eyes PERRL, conjunctivae normal, anicteric sclerae ENMT external ear and nose normal, oropharynx normal Neck trachea midline, no thyromegaly Respiratory no respiratory distress and no cough Auscultation: lungs clear to auscultation bilaterally Cardiovascular Rate/Rhythm: regular rate and regular rhythm; not tachycardic Heart Sounds: normal S1 and normal S2; no murmur Extremities: no edema Gastrointestinal (Abdomen) Inspection/Auscultation: normal bowel sounds; abdomen not distended Percussion/Palpation: abdomen soft; abdomen nontender Psychiatric A+Ox3, euthymic affect Lymphatic no cervical or axillary lymphadenopathy Discharge Data Allergies Allergy/AdvReac Type Severity Reaction Status Date / Time pramipexole AdvReac Intermediate hallucinati Verified 04/23/21 01:20 ons Consultations 04/23/21 03:01 ED Decision to Admit Stat 04/23/21 06:05 Consult Orthopedic Surgery Routine Procedures Performed Operation Date: 04/25/21 09:50 Actual Procedures p L1-L3 Lumbar Decompression Fusion with Spinal Cord Monitoring(Not Applicable) - Yehuda Marcelino DO s Removal of Hardware L4-S1 - Yehuda Marcelino DO Ordered Studies 04/23/21 01:00 CT abd pelvis wo con Urgent CT lumbar spine wo con Urgent 04/23/21 05:24 MR lumbar spine wo/w con Urgent 04/25/21 09:50 FL lumbar spine 2-3V Routine Hospital Course (1) Back pain: With radiculopathy symptoms with possible disc herniation as per Ortho hx closed sacral fracture status post surgery (05/2020) Appreciate Ortho input and recommendation-plan. S/P #1 removal of posterior instrumentation L4-S1 including bilateral iliac bolts. #2 exploration of fusion L4-S1 including bilateral SI joint fusions. #3 lumbar decompression with bilateral medial facetectomies and foraminotomies L1- 2, L2-3 and L3-4. #4 posterior spinal fusion L1-L4. #5 patient posterior segmental instrumentation L1-S1. #6 interbody fusion L2-L3. #7 placement peek cage 8 x 22 mm at L2-L3. #8 placement of locally harvested morselized autograft in the posterior gutters. #9 placement infuse collagen sponge combined with master graft in the posterior lateral gutters and I factor in the interbody space on 04/25 MRI of the Lumbar Spine: IMPRESSION: 1. There is a 16 x 12 x 9 mm oval shaped nonenhancing focus posterior to the L3 vertebral body at the right paracentral location. This is concerning for an epidural abscess. An epidural hematoma or less likely disc fragment could also have a similar appearance. Surgical consultation advised. This results in mo derate to severe right-sided central canal narrowing at the L3 level. This also results in severe right-sided neural foraminal narrowing. 2. L4-S1 posterior decompression and fusion. 3. Mild endplate edema and paravertebral edema at the L2-L3 level. There is associated endplate enhancement and paravertebral enhancement. Therefore, this concerning for a discitis/osteomyelitis at this level. Additional areas of endplate edema and enhancement within the T11-L2 levels is nonspecific and could be due to additional areas of osteomyelitis or chronic degenerative change. Moderate to severe multilevel central canal and bilateral neural foraminal narrowing as described above. 4. These findings were called/faxed to the referring physician following dictation. Patient remains afebrile. Her recent WBC is within normal limit. Blood cultures have been negative. There was a concern for epidural abscess on MRI however as per orthopedics there was no evidence of any epidural abscess or infected looking tissue. Will discontinue vancomycin/ceftriaxone. Pain management/DVT prophylaxis as per orthopedics. Continue to work with PT/OT.-Awaiting to go to [facility] Remains stable and denies any significant symptoms Medically stable to be transferred to [facility] this afternoon (2) Uncontrolled hypertension, stage 1: We will continue with her home blood pressure medications Will give as needed hydralazine Blood pressure remains controlled (3) Acute worsening of stage 3 chronic kidney disease: ARF secondary to illness, clinical dehydration with note of ketonuria Kidney function has been normalized with cautious amount of intravenous fluid. Creatinine remains stable and normal (4) Atrial fibrillation: AF on Coumadin, rate controlled. Dr. Marcelino Ok with starting coumadin today. INR at 1.3 today. Will give 5 mg now. Monitor dialy INR. We will check INR tomorrow-1.2 today We will continue current dose of Coumadin-INR should be checked in 2 days in the facility (5) Parkinsons disease: Parkinson's disease, stable on regimen Has significant tremors involving the hands (6) DM type 2 (diabetes mellitus, type 2): DM 2 diet-controlled, well-controlled as of recent outpatient hemoglobin A1c of 6.3, December 2020 We will continue with SSI We will continue with her outpatient medications for diabetes DVT prophylaxis. Coumadin INR goal between 2 and 3 if no procedural intervention SCDs for now Full code Patient requests for her brother to be updated of plan of care. Mr. Torrey Phan . thru contact #[phone].- Discharge to [facility] this afternoon Total Time Total Time Spent Total Time Spent (In Minutes): 35 minutes Discharge Plan Discharge Items Patient Disposition: Transfer Inpatient Rehab Fac Reason For Visit: HTN URG, ARF Discharge Diagnosis: Lumbar spinal stenosis with neurogenic claudication Condition on Discharge: Good Activity: As commented below Non-emergency contact: Primary Care Provider Call non-emergency contact if: you have any medication questions Follow-up/Referrals: Titi Baez, [Primary Care Provider] - Diet: Carb Consistent or DM2 Addtl Attending Provider Instructions: ACTIVITY RECOMMENDATIONS: SELF CARE INSTRUCTIONS AFTER THORACIC/LUMBAR FUSIONS 1. You may walk to your tolerance. It is good exercise for your legs and back. Expect some back and intermittent leg aches and pains. 2. You may perform "counter-top" level activities (make a sandwich, lorenzo with a project, etc.). 3. No bending or lifting of more than 10 pounds or back twisting of any nature (roll like a log when turning in bed). 4. You may ride in a car for 20-30 minutes at a time. No driving until after your first visit with your doctor. 5. Frequent changes of position and restricting sitting to 30 minutes at a time will help limit the amount of back spasms and stiffness you may experience. 6. You may discontinue the use of ambulatory aids (cane, crutches, etc.) once your strength and confidence allow. 7. You may intermediate manager the shower and let water strike your incision when you arrive home at least once daily. Do not take a tub bath, sit in a hot tub or go into a swimming pool until after your first recheck in the office. SPECIAL CARE INSTRUCTIONS: VERY IMPORTANT TO READ AND REVIEW A. Your surgical incision has been closed with a cosmetic suture under the skin that will dissolve in about 6 weeks. In 14 days, you can use a pair of clean scissors and cut the suture that is left outside of the skin at the ends of your incision. 1. The small skin tapes can be removed 7 days after surgery if they have not fallen off by that point. 2. You may keep the wound open to air as much as possible to promote healing after post-op day number 5 unless told otherwise by your doctor. 3. If you think the wound looks like it is becoming infected (redness or worsening drainage) and/or you are experiencing fever, chill or worsening back pain and muscle spasms, contact the office so that we may evaluate you as soon as possible. B. Complications are uncommon, but please contact us if you have any signs or symptoms of: 1. wound infection (fever higher than 102.5 degrees F, redness, separation of wound, drainage, or increasing pain from the incision) 2. blood clots in legs (pain, swelling, redness and warmth in legs) 3. urinary tract infection (fever higher than 102.5 degrees F, burning upon urination or increased frequency of urination) 4. nerve problems (inability to walk on your toes or heels, numbness, loss of bowel or bladder control) 5. any other symptoms that concern you C. Please call the office at if you have any concerns or questions about your operation or recovery. D. No smoking! Smoking drastically decreases the chance of a solid fusion. E. Do not take any anti-inflammatory medications (Indocin, Advil, Motrin, Aspirin, Naprosyn, etc.) as these may inhibit the chance of a solid fusion. Tylenol is okay to take for pain. MANAGING PAIN AFTER SPINAL SURGERY 1. Narcotic medication is intended for short-term use and will be provided for surgical pain. Surgical pain usually lasts for a period of 4-6 weeks. Narcotic medication includes Percocet, Vicodin, Darvocet, Tylenol #3 or Lortab. 2. Longer-term pain is more appropriately treated with non-narcotic medication such as Tylenol ES. 3. Muscle spasm is not appropriately treated with narcotics. Muscle relaxers such as Soma, Flexeril or Skelaxin can be used along with Tylenol ES. 4. Remember that we all live with some "aches and pains". This is not unusual or uncommon after an injury or as we get older. a. Back pain is expected and may include muscle spasms for 4 to 6 weeks after surgery. The pain should gradually improve. If the pain worsens for no apparent reason, please contact the office. b. Intermittent leg pain may also be experienced and should not be concerned about unless it worsens for no apparent reason. If so, please contact the office. 5. We will provide appropriate medication within the normal guidelines of their prescribed use. We will also be very cautious and aware of potential abuse and extended duration of patients' medication needs. a. Pain medications are for your comfort and to assist with sleep and rest so that the tissue can heal. They are not provided in order to return to normal activity and should not be used through the day. To do so or worsening pain at night can result from ongoing tissue damage and development of tolerance to the prescribed medicine. 6. Please allow 2-3 days to process refills. Prescriptions will not be mailed but must be picked up at the office. FOLLOW UP VISIT: Keep your scheduled follow-up appointment. Any questions, please call the office at . Pending Studies at Discharge: No Stand-Alone Forms: [facility] Skilled Items Patient informed of condition?: No DNR: No Discharge Level of Care: Acute rehab Communicable Disease: No Discharge Prognosis: Improving Lines: None Urinary Catheter: No Medications and DC Order Prescriptions: New tramadol 50 mg tablet 50 mg PO Q6H PRN (Reason: pain, moderate) Qty: 30 RF: 0 oxycodone 5 mg tablet 5 mg PO Q6H PRN (Reason: pain, severe) Qty: 30 RF: 0 Continued docusate sodium [Col-Rite] 100 mg capsule 200 mg PO DAILY PRN (Reason: Constipation) RF: 0 atorvastatin [Lipitor] 40 mg Tablet 80 mg PO QPM RF: 0 valsartan [Diovan] 80 mg Tablet 80 mg PO QDL RF: 0 entacapone [Comtan] 200 mg Tablet 200 mg PO TID RF: 0 lorazepam [Ativan] 0.5 mg Tablet 0.5 mg PO BID RF: 0 calcitriol 0.5 mcg Capsule 0.5 mcg PO QDL RF: 0 raloxifene 60 mg Tablet 60 mg PO QDL RF: 0 escitalopram oxalate [Lexapro] 10 mg Tablet 10 mg PO QAM RF: 0 cholecalciferol (vitamin D3) [Vitamin D3] 25 mcg (1,000 unit) Tablet 50 mcg PO BID RF: 0 polyethylene glycol 3350 [Miralax] 17 gram powder in packet 17 g PO BID PRN (Reason: Constipation) RF: 0 acetaminophen [Tylenol] 325 mg Tablet 650 mg PO Q4H PRN (Reason: FEVER/PAIN) RF: 0 carbidopa-levodopa 25-250 mg tablet 1 tab PO QID RF: 0 metoprolol succinate 25 mg tablet extended release 24 hr 12.5 mg PO QAM RF: 0 nystatin 100,000 unit/gram powder 1 applic TOPICAL TID RF: 0 Vitron-C 65 mg iron- 125 mg Tablet,Delayed Release (Dr/Ec) 1 tab PO DAILY RF: 0 warfarin 3 mg tablet See Rx Instructions .ROUTE .COMPLEX RF: 0 diltiazem HCl 120 mg capsule,extended release 24hr 120 mg PO QAM RF: 0 Discharge Orders: Discharge Order (Routine); Ordered 04/29/21 Ordered By: Milagro Kuo Admission Data Admit Date/Time: 04/24/21 10:25 Attending Provider: Milagro Kuo Admit Provider: Gamal Marie Primary Care Provider: Titi Baez Other Providers: Gamal Marie ; Yehuda Marcelino Muhammad J. ; [facility]
== END 2021-04-29 14:00 | DRG 454 ==
LOC: ED 00:48 → EDINP 00:48 → 2N 04:49 → SUATTDRO 04-24 10:25

== ENCOUNTER 2021-12-06 15:11 | Inpatient (IN) ==
--- NOTE | 2021-12-06 15:35 | Emergency Department Note ---
History of Present Illness General Chief complaint: Leg Injury/Pain Stated complaint: right leg, lower pack pain Time Seen by Provider: 12/06/21 15:24 History of Present Illness Maximum Pain Intensity: 10 This is a 76-year-old female with a history of lumbosacral spine surgery, type 2 diabetes, on warfarin, Parkinson's disease, who presents with 3 days of right leg pain. This pain starts at her foot and radiates up into her buttock when she tries to bear weight or when she lays flat. It is better when she sits upright. She saw her primary care provider 2 days ago when the pain began who prescribed her tramadol which she has taken in the past for back pain, and she has been taking this intermittently. When she takes this the pain improves although when the medication wears off the pain returns. She has been having a harder time getting around her house with the use of her w alker because of the pain and she states this leg feels weak. The leg weakness is not new and has been present over the past several months at least. The pain is what is new. Denies any recent falls or trauma. Denies any numbness or tingling in her legs, loss of bowel or bladder function, urinary retention. Most recent INR was 2.3. Patient does not check her blood glucose levels. She lives at home. Currently her son is living with her but he recently obtained a new job and will likely be moving out in several weeks. She does not have any home visiting services, but does have Meals on Wheels. Home Medications Medication Instructions Recorded Confirmed Type atorvastatin 40 mg tablet (Lipitor) 80 mg PO HS 01/21/20 12/06/21 History calcitriol 0.5 mcg capsule 0.5 mcg PO QDL 01/21/20 12/06/21 History cholecalciferol (vitamin D3) 25 50 mcg PO BID 01/21/20 12/06/21 History mcg (1,000 unit) tablet (Vitamin D3) escitalopram oxalate 10 mg tablet 10 mg PO QAM 01/21/20 12/06/21 History (Lexapro) lorazepam 0.5 mg tablet (Ativan) 0.5 mg PO AMHS 01/21/20 12/06/21 History raloxifene 60 mg tablet 60 mg PO QDL 01/21/20 12/06/21 History valsartan 80 mg tablet (Diovan) 80 mg PO QDL 01/21/20 12/06/21 History docusate sodium 100 mg capsule 200 mg PO DAILY PRN 09/12/20 12/06/21 History (Col-Rite) polyethylene glycol 3350 17 gram 17 g PO UD PRN 09/14/20 12/06/21 History oral powder packet (Miralax) acetaminophen 325 mg tablet 650 mg PO Q4H PRN 04/23/21 12/06/21 History (Tylenol) carbidopa 25 mg-levodopa 250 mg 1 tab PO QID 04/23/21 12/06/21 History tablet iron,carbonyl 65 mg-vitamin C 125 1 tab PO QPM 04/23/21 12/06/21 History mg tablet,delayed release (Vitron-C) metoprolol succinate 25 mg 25 mg PO QAM 04/23/21 12/06/21 History tablet,extended release 24 hr nystatin 100,000 unit/gram topical 1 applic TOPICAL TID 04/23/21 12/06/21 History powder warfarin 3 mg tablet 3 mg PO QPM 04/23/21 12/06/21 History baclofen 10 mg tablet 10 mg PO HS PRN 12/06/21 12/06/21 History clotrimazole 1 % topical cream 1 applic TOPICAL BID 12/06/21 12/06/21 History ferrous sulfate 325 mg (65 mg 325 mg PO DAILY 12/06/21 12/06/21 History iron) tablet tramadol 50 mg tablet 100 mg PO Q8H PRN 12/06/21 12/06/21 History Allergies Allergy/AdvReac Type Severity Reaction Status Date / Time pramipexole AdvReac Intermediate hallucinati Verified 12/06/21 23:18 ons Past Med/Surg History Medical History Acute UTI (urinary tract infection) Anxiety Atrial fibrillation paroxysmal on warfarin CKD (chronic kidney disease) Contusion of multiple sites Depression DM type 2 (diabetes mellitus, type 2) diet controlled Fall Fall from ground level Hyperlipidemia Hypertension Obesity Osteoarthritis Parkinsons disease Rhabdomyolysis Urinary incontinence Vertigo Surgical History History of cholecystectomy lap cholecystectomy: 01/26/20: Grade 1 view, MAC#3, ETT 7 at [facility] History of incision and drainage shoulder> PT UNSURE OF DETAILS Hx of breast biopsy LEFT Hx of colonoscopy Family History Mother Atrial fibrillation Father Myocardial infarction Social History Smoking Status: Never smoker Second Hand Exposure: No; Hx Alcohol Use: No Hx Substance Use: No Preferred Language: Tajik Communication Ability: Effective Forester Aide Required: No Beliefs That Will Affect Care: None marital status: / Current Living Situation: Alone Current Living Situation Comment: Son living with her att, but moving out Feels Safe at Home: Yes Safety Concerns: Feels Safe At This Time Assistive Devices: Glasses, Walker and Wheelchair Review of Systems See HPI for pertinent positives & negatives. and A total of 10 systems reviewed and were otherwise negative Physical Exam Vital Signs Vital Signs - 24 hr 12/06/21 22:55 Pulse Rate [Right Finger] 91 H Pulse Rhythm [Right Finger] Regular Pulse Strength [Right Finger] Normal Respiratory Rate 18 Respiratory Effort / Characteristics Non-Labored Respiratory Depth Normal Blood Pressure [Right Arm] 175/124 H Blood Pressure Mean [Right Arm] 141 Blood Pressure Position [Right Arm] Sitting Pulse Oximetry 93 Oxygen Delivery Method Room Air CONSTITUTIONAL: Well developed, well nourished, appears to be in pain with any changes in movement especially laying the patient supine HEAD: Normocephalic, atraumatic. EYES: PERRL, conjunctivae normal, extraocular muscles intact. ENMT: External ears normal. Nose with normal external appearance, no congestion. Oral mucous membranes moist. Oropharynx normal. NECK: Full active range of motion. RESPIRATORY: Breathing unlabored and symmetric. Lungs clear to auscultation bilaterally. No wheeze, rales, or rhonchi. CARDIOVASCULAR: Regular rate and rhythm. No murmurs, rubs, or gallops. DP pulses 2+ bilaterally ABDOMEN: Normal bowel sounds. Soft, nontender, no peritonitis. No masses. RECTAL: Large amount of stool in the rectal vault, triggering the patient to have a bowel movement. No saddle anesthesia noted. MUSCULOSKELETAL: Moves bilateral upper extremities in all joints without pain or difficulty. Back: No midline spine tenderness, no SI joint tenderness. Minimal tenderness appreciated in the right buttock. Positive straight leg raise on the right. Patient actively flexes right knee when placed in supine position. SKIN: [place], warm, dry. No rash. NEUROLOGIC: Alert and oriented x 3. Resting tremor in right upper extremity, baseline. Decreased sensation to light touch in L4 distribution. There is some weakness noted with EHL extension. PSYCHIATRIC: Appropriate. Normal affect. Course Administered Medications Amlodipine Besylate (Amlodipine Besylate 5 Mg Tab) 2.5 mg PO HS [facility] Stop: 01/06/22 20:59 Last Admin: 12/07/21 20:09 Dose: 2.5 mg Documented by: [id number] Atorvastatin Calcium (Atorvastatin 40 Mg Tab) 80 mg PO HS [facility] Stop: 01/06/22 20:59 Last Admin: 12/07/21 20:12 Dose: 80 mg Documented by: [id number] Carbidopa/Levodopa (Carbidopa/Levodopa 25-250 1 Ea Tab) 1 tab PO QID@0900,1200,1600,2100 [facility] Stop: 01/06/22 08:59 Last Admin: 12/07/21 20:12 Dose: 1 tab Documented by: [id number] Admin: 12/07/21 17:20 Dose: 1 tab Documented by: [id number] Admin: 12/07/21 13:05 Dose: 1 tab Documented by: [id number] Admin: 12/07/21 09:22 Dose: 1 tab Documented by: [id number] Escitalopram Oxalate (Escitalopram Oxalate 10 Mg Tab) 10 mg PO QAM [facility] Stop: 01/06/22 08:59 Last Admin: 12/07/21 09:22 Dose: 10 mg Documented by: [id number] Ferrous Sulfate (Ferrous Sulfate 325 Mg Tab) 325 mg PO DAILY@0800 [facility] Stop: 01/06/22 07:59 Last Admin: 12/07/21 09:22 Dose: 325 mg Documented by: [id number] Insulin Aspart (Insulin Aspart Per Unit) 0 units SC ACHS [facility] Stop: 01/06/22 01:46 Last Admin: 12/07/21 21:07 Dose: Not Given Documented by: [id number] Admin: 12/07/21 17:24 Dose: 3 units Documented by: [id number] Cosigned by: [id number] Admin: 12/07/21 13:08 Dose: 1 units Documented by: [id number] Cosigned by: [id number] Admin: 12/07/21 09:21 Dose: 2 units Documented by: [id number] Cosigned by: [id number] Admin: 12/07/21 02:45 Dose: Not Given Documented by: [id number] Cosigned by: [id number] Lorazepam (Lorazepam 0.5 Mg Tab) 0.5 mg PO AMHS [facility] Stop: 01/06/22 01:46 Last Admin: 12/07/21 20:07 Dose: 0.5 mg Documented by: [id number] Admin: 12/07/21 09:22 Dose: 0.5 mg Documented by: [id number] Admin: 12/07/21 02:44 Dose: 0.5 mg Documented by: [id number] Metoprolol Succinate (Metoprolol Succ 25mg Ext Rel Tab) 25 mg PO QAM [facility] Stop: 01/06/22 08:59 Last Admin: 12/07/21 09:22 Dose: 25 mg Documented by: [id number] Tramadol HCl (Tramadol Hcl 50 Mg Tablet) 25 - 50 mg PO Q4H PRN PRN Reason: Pain Stop: 01/05/22 23:35 Last Admin: 12/07/21 20:07 Dose: 50 mg Documented by: [id number] Admin: 12/07/21 02:27 Dose: 50 mg Documented by: [id number] Valsartan (Valsartan 80 Mg Tab) 80 mg PO QDL [facility] Stop: 01/06/22 02:24 Last Admin: 12/07/21 03:54 Dose: 80 mg Documented by: [id number] Discontinued Medications Amlodipine Besylate (Amlodipine Besylate 5 Mg Tab) 2.5 mg PO NOW ONE Stop: 12/06/21 22:35 Last Admin: 12/06/21 22:55 Dose: 2.5 mg Documented by: [id number] Diazepam (Diazepam 5 Mg/Ml Inj 10ml Vial) 1 mg IV NOW STA Stop: 12/06/21 17:48 Last Admin: 12/06/21 18:53 Dose: 1 mg Documented by: [id number] Sodium Chloride (Nss) 500 mls @ 999 mls/hr IV .Q31M ONE Stop: 12/06/21 18:17 Last Infusion: 12/06/21 21:07 Dose: 0 mls/hr Documented by: [id number] Admin: 12/06/21 18:52 Dose: 999 mls/hr Documented by: [id number] Acetaminophen (Ofirmev) 65 mls @ 200 mls/hr IV NOW ONE; Protocol Stop: 12/06/21 18:16 Last Infusion: 12/06/21 21:03 Dose: 0 mls/hr Documented by: [id number] Admin: 12/06/21 18:55 Dose: 200 mls/hr Documented by: [id number] Sodium Chloride (Nss 1000ml) 1,000 mls @ 50 mls/hr IV .Q20H ONE Stop: 12/07/21 21:46 Last Admin: 12/07/21 02:43 Dose: 50 mls/hr Documented by: [id number] Ioversol (Optiray 320 100ml) 100 ml IV ONCE ONE Stop: 12/07/21 00:06 Last Admin: 12/07/21 00:05 Dose: 93 ml Documented by: [id number] Lidocaine (Lidocaine 5% 1 Patch) 1 patch TD NOW STA Stop: 12/06/21 23:35 Last Admin: 12/07/21 01:32 Dose: 1 patch Documented by: [id number] Miscellaneous (Remove Lidoderm Patch) 1 ea N/A TODAY@1400 [facility] Stop: 12/07/21 14:01 Last Admin: 12/07/21 13:05 Dose: 1 ea Documented by: [id number] Tramadol HCl (Tramadol Hcl 50 Mg Tablet) 50 mg PO NOW STA Stop: 12/06/21 15:58 Last Admin: 12/06/21 16:06 Dose: 50 mg Documented by: [id number] Medical Decision Making Differential Diagnosis Radicular pain, musculoskeletal, disc herniation, fracture, metastatic disease, cord compression, discitis, sciatica, cauda equina, infection, aortic disease, renal colic, gastrointestinal, as well as other pathologies. Laboratory Data Result diagrams: 12/07/21 05:48 12/07/21 05:48 Lab Results 12/06/21 12/06/21 12/06/21 Range/Units 18:05 18:05 19:41 WBC 7.08 (4.8-10.8) K/uL RBC 6.22 H (4.2-5.4) M/uL Hgb 15.0 (12.0-16.0) g/dL Hct 47.9 H (37-47) % MCV 77.0 L (80-100) fL MCH 24.1 L (25-34) pg MCHC 31.3 L (32-36) g/dL RDW Std Deviation 73.3 H (36.4-46.3) fL RDW Coeff of Ratna 26.4 H (11.5-14.5) % Plt Count 227 (130-400) K/uL Immature Gran % (Auto) 0.1 % Neut % (Auto) 69.3 % Lymph % (Auto) 16.8 % [place]anan % (Auto) 12.1 % Eos % (Auto) 1.1 % Baso % (Auto) 0.6 % Neut # (Auto) 4.90 (1.4-6.5) K/uL Lymph # (Auto) 1.19 L (1.2-3.4) K/uL [place]anan # (Auto) 0.86 H (0.11-0.59) K/uL Eos # (Auto) 0.08 (0-0.5) K/uL Baso # (Auto) 0.04 (0-0.2) K/uL Immature Gran # (Auto) 0.01 (0.00-0.02) K/uL Anisocytosis Present PT 26.4 H (9.0-12.0) Seconds INR 2.6 H (0.9-1.1) Sodium Cancelled Potassium Cancelled Chloride Cancelled Carbon Dioxide Cancelled Anion Gap Cancelled BUN Cancelled Creatinine Cancelled Est Cr Clr Drug Dosing Cancelled Est GFR ( Amer) Cancelled Est GFR (Non-Af Amer) Cancelled BUN/Creatinine Ratio Cancelled Glucose Cancelled Calcium Cancelled Total Bilirubin Cancelled AST Cancelled ALT Cancelled Alkaline Phosphatase Cancelled Total Protein Cancelled Albumin Cancelled Globulin Cancelled Albumin/Globulin Ratio Cancelled Lipase (11-82) U/L SARS-CoV-2, RNA, NAAT (NEGATIVE) 12/06/21 12/06/21 12/06/21 Range/Units 20:29 20:29 21:45 WBC (4.8-10.8) K/uL RBC (4.2-5.4) M/uL Hgb (12.0-16.0) g/dL Hct (37-47) % MCV (80-100) fL MCH (25-34) pg MCHC (32-36) g/dL RDW Std Deviation (36.4-46.3) fL RDW Coeff of Ratna (11.5-14.5) % Plt Count (130-400) K/uL Immature Gran % (Auto) % Neut % (Auto) % Lymph % (Auto) % [place]anan % (Auto) % Eos % (Auto) % Baso % (Auto) % Neut # (Auto) (1.4-6.5) K/uL Lymph # (Auto) (1.2-3.4) K/uL [place]anan # (Auto) (0.11-0.59) K/uL Eos # (Auto) (0-0.5) K/uL Baso # (Auto) (0-0.2) K/uL Immature Gran # (Auto) (0.00-0.02) K/uL Anisocytosis PT (9.0-12.0) Seconds INR (0.9-1.1) Sodium 138 Potassium 4.1 Chloride 104 Carbon Dioxide 26 Anion Gap 8 BUN 27 H Creatinine 0.93 Est Cr Clr Drug Dosing 56.2 Est GFR ( Amer) 70.2 Est GFR (Non-Af Amer) 60.5 BUN/Creatinine Ratio 29.0 H Glucose 91 Calcium 8.9 Total Bilirubin 1.0 AST 24 ALT 4 L Alkaline Phosphatase 83 Total Protein 6.8 Albumin 3.5 Globulin 3.3 Albumin/Globulin Ratio 1.1 Lipase 16 (11-82) U/L SARS-CoV-2, RNA, NAAT NEGATIVE (NEGATIVE) Imaging Data Radiologist's Impression: Lumbar Spine X-Ray 12/06/21 15:57 LUMBAR SPINE 3 VIEWS CLINICAL HISTORY: Chronic low back pain. Right lower extremity radiculopathy. FINDINGS: 3 views of the lumbar spine are correlated with lumbar spine CT dated 04/23/2021. The skeletal structures are osteopenic. There is no radiographic evidence of acute fracture or malalignment. Vertebral body height and alignment are maintained throughout the lumbar spine. There is postoperative change from laminectomy and posterior fusion seen at L2 to S1 with interpositioned bone graft. Interpedicular screws are present at all levels with the exception of L5. Degenerative sclerosis is again seen in the bodies between T11 and L2. Anterior and lateral marginal osteophytes are seen throughout. Facet arthropathy is noted in the lower lumbar region. There has been discectomy at L2-L3 and L5-S1. Moderate to severe disc space narrowing is noted at T12-L1 and L1-L2. Milder disc space narrowing is seen at the remaining lumbar levels. The bony pelvis is intact as visualized. Sclerotic change is noted in the sacroiliac joints. There are screw tracks from previous iliac bolts. Cholecystectomy clips are noted in the right upper quadrant. There is no bowel obstruction. Atherosclerotic calcification is seen throughout the abdominal aorta. IMPRESSION: 1. No acute bony abnormality is seen involving the lumbar spine. 2. Osteopenia with postoperative and spondylotic change as above. Dictated: 12/06/2021 5:18 PM Transcribed: 12/06/2021 5:36 PM Aretha [id number] [facility] Electronically signed by: Omar Hill M.D. 12/06/2021 5:54 PM MDM Narrative 76-year-old female with an extensive history as described above presents with 3 days of right leg pain that appears to be radicular/sciatic in nature. On exam, patient does appear to be in pain anytime she is placed into a prone position causing her to flex the right knee, and has pain in the leg with rolling from side to side. She is quite deconditioned at baseline. She has some decreased sensation to light touch in L4 distribution on the right side, positive straight leg raise on the right, and minimal amount of weakness in the right EHL with extension. Afebrile without any fever reducing medications. Remainder of vitals are stable and at baseline. X-ray of the lumbar spine obtained demonstrating postop changes, significant deg enerative changes, with no acute process identified. Patient's pain was somewhat better controlled with her home dose of tramadol, 1 mg Valium, and Tylenol. She was more comfortable after this medication and demonstrated ability to stand on the leg but was quite unsteady and appears to be a fall risk. She states her son cleans and does laundry but is not a team primary care physician and she does not feel like she can manage at home right now. Bladder scan demonstrated less than 200 mL. Labs overall demonstrate evidence of some hemoconcentration which has been present in the past. INR is therapeutic. I did attempt to ambulate the patient one more time and she remained quite unsteady stating that she feels globally weak right now and continues to have quite a bit of pain in the leg. Patient will be admitted for pain control, further evaluation, will likely need PT and OT, possible inpatient MRI to coordinate care, as well as coordinating outpatient services with possible referral to acute rehab. Impression & Plan Radicular pain of right lower extremity, Physical deconditioning, Uncontrolled pain Discharge Plan Visit Data Chief Complaint: Leg Injury/Pain Stated Complaint: right leg, lower pack pain ED Provider: Erick Tam ED Midlevel Provider: Trevor Castellanos Discharge Problem: Radicular pain of right lower extremity, Physical deconditioning, Uncontrolled pain Patient Disposition: Admitted As Inpatient Discharge Instructions Interventions: ED Discharge Assessment Last Done: 12/07/21 01:44 Addendum December 07, 2021 22:42 HPI: The patient is a 76 y/o woman with a pmhx of lumbosacral surgery, DM2, afib on warfarin, HTN, HLD, Parkinson disease who presents to the emergency department for evaluation of several days of lumbosacral radicular symptoms of pain from her lower back down her right leg. She has been taking Tramadol for pain after seeing pcp but denies improvement. The patient has had difficulty waling in her house even with her walker. She denies urinary retention or bowel incontinence. She lives by herself though her son has temporarily been staying with her. A/P: Lumbar XR negative for FX. Osteopenia is noted. Postoperative change from l aminectomy and posterior fusion seen. INR therapeutic at 2.6. Lab results otherwise unremarkable. Pain somewhat improved after medications however still unsteady on ambulatory trial. Plan for admission for pain control and PT/OT, possible placement. I was consulted by the Advanced Practice Provider.I performed a substantive portion of the visit.This includes aspects of the HPI, MDM, diagnostic interpretations, and disposition/plan. I discussed the case with the LALITHA, and agree with the findings and plan as documented in LALITHA Emanuel's note.
[2021-12-06] MEDS ORDERED: traMADol HCL 50 MG TABLET PO STA (15:57)
[2021-12-06] MEDS ORDERED: SODIUM CHLORIDE 0.9% 500 ML IV ONE (17:47)
--- NOTE | 2021-12-06 17:56 | XRay Report ---
LUMBAR SPINE 3 VIEWS CLINICAL HISTORY: Chronic low back pain. Right lower extremity radiculopathy. FINDINGS: 3 views of the lumbar spine are correlated with lumbar spine CT dated 04/23/2021. The skeletal structures are osteopenic. There is no radiographic evidence of acute fracture or malali gnment. Vertebral body height and alignment are maintained throughout the lumbar spine. There is post operative change from laminectomy and posterior fusion seen at L2 to S1 with interpositioned bone gra ft. Interpedicular screws are present at all levels with the exception of L5. Degenerative sclerosis is again seen in the bodies between T11 and L2. Anterior and lateral marginal osteophytes are seen th roughout. Facet arthropathy is noted in the lower lumbar region. There has been discectomy at L2-L3 a nd L5-S1. Moderate to severe disc space narrowing is noted at T12-L1 and L1-L2. Milder disc space saman rowing is seen at the remaining lumbar levels. The bony pelvis is intact as visualized. Sclerotic jolynn nge is noted in the sacroiliac joints. There are screw tracks from previous iliac bolts. Cholecystect arie clips are noted in the right upper quadrant. There is no bowel obstruction. Atherosclerotic calci fication is seen throughout the abdominal aorta. IMPRESSION: 1. No acute bony abnormality is seen involving the lumbar spine. 2. Osteopenia with postoperative and spondylotic change as above. Dictated: 12/06/2021 5:18 PM Transcribed: 12/06/2021 5:36 PM Aretha [id number] [facility] Electronically signed by: Omar Hill M.D. 12/06/2021 5:54 PM
[2021-12-06] MEDS ORDERED: ACETAMINOPHEN 65 ML IV ONE (17:57)
[2021-12-06 18:29] LABS: Basophils # (auto) 0.04 K/uL (0-0.2); Basophils % (auto) 0.6 %; Eosinophils # (auto) 0.08 K/uL (0-0.5); Eosinophils % (auto) 1.1 %; Hematocrit (blood only) 47.9 % (37-47); Immature Granulocytes # (auto) 0.01 K/uL (0.00-0.02); Immature Granulocytes % (auto) 0.1 %; Lymphocytes # (auto) 1.19 K/uL (1.2-3.4); Lymphocytes % (auto) 16.8 %; Mean Corpuscular Hemoglobin 24.1 pg (25-34); Mean Corpuscular Hgb Conc 31.3 g/dL (32-36); Monocytes # (auto) 0.86 K/uL (0.11-0.59); Monocytes % (auto) 12.1 %; Neutrophils % (auto) 69.3 %; Platelet Count 227 K/uL (130-400); RDW Coefficient of Variation 26.4 % (11.5-14.5); RDW Standard Deviation 73.3 fL (36.4-46.3); Red Blood Count 6.22 M/uL (4.2-5.4); White Blood Count 7.08 K/uL (4.8-10.8)
[2021-12-06 18:47] LABS: Anisocytosis Present
[2021-12-06 20:14] LABS: INR 2.6 (0.9-1.1); Prothrombin Time 26.4 Seconds (9.0-12.0)
[2021-12-06 21:08] LABS: Albumin Globulin Ratio 1.1 (0.9-2); Albumin Level 3.5 gm/dl (3.4-5.0); Calcium 8.9 mg/dl (8.5-10.1); Creatinine Clr Calc Pharmacy 56.2 ml/min; Est GFR (African American) 70.2 ml/min; Est GFR (Non-African American) 60.5 ml/min; Globulin 3.3 gm/dl (2.5-4.0); Potassium 4.1 mmol/L (3.5-5.1); Total Protein 6.8 gm/dl (6.0-8.3)
[2021-12-06] MEDS ORDERED: amLODIPine BESYLATE 5 MG TAB PO ONE (22:34)
--- NOTE | 2021-12-06 23:30 | History & Physical Report ---
Date of Service December 06, 2021 Assessment & Plan (1) Asymptomatic hypertensive urgency: Plan: Secondary to lumbar radiculopathy hx multiple back surgeries. AF on Coumadin, rate controlled, INR therapeutic DM 2 diet-controlled, well-controlled as of recent outpatient hemoglobin A1c of 6.9, August 2021 Parkinson's disease, stable on regimen OBS Medical telemetry given BP elevation Analgesia, facilitate home BP meds Add amlodipine to regimen Orthopedic spine consult RE back pain, history surgery Patient may require MRI imaging pending orthopedics evaluation. ISS BG goal 110-140 DVT prophylaxis. Coumadin INR goal between 2 and 3 if no procedural intervention Full code Patient requests for her brother to be updated of plan of care. Mr. Torrey GrimmJr amy. thru contact #[phone]. Text document was generated using [employer] voice recognition software. It may contain grammatical or spelling errors. Kindly contact undersigned for clarification of any documentation item in question. History of Present Illness Chief Complaint: Back pain Primary Care Provider: Lori Morelos MD History obtained from patient and records. Medical history significant for PAF on Coumadin, hypertension, hyperlipidemia, Parkinson's disease, DM 2 diet-controlled, hx multiple back surgeries. Last confinement April 2021 for back pain with radiculopathy symptoms. Patient underwent back surgery. Few days history of achy low back pain. Pain coming from right leg going up. Right leg feels weak and numb. No recollection of recent trauma/fall. Achy abdominal pain of 1 month duration without other symptoms as per patient. Patient denies chest pain, SOB, headache symptoms. Denies incontinence symptoms. Patient consulted ER for worsening symptoms. Highest SBP at the ER 190s. 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 Allergies Allergy/AdvReac Type Severity Reaction Status Date / Time pramipexole AdvReac Intermediate hallucinati Verified 12/06/21 23:18 ons Home Medications Medication Instructions Recorded Confirmed Type atorvastatin 40 mg tablet (Lipitor) 80 mg PO HS 01/21/20 12/06/21 History calcitriol 0.5 mcg capsule 0.5 mcg PO QDL 01/21/20 12/06/21 History cholecalciferol (vitamin D3) 25 50 mcg PO BID 01/21/20 12/06/21 History mcg (1,000 unit) tablet (Vitamin D3) escitalopram oxalate 10 mg tablet 10 mg PO QAM 01/21/20 12/06/21 History (Lexapro) lorazepam 0.5 mg tablet (Ativan) 0.5 mg PO AMHS 01/21/20 12/06/21 History raloxifene 60 mg tablet 60 mg PO QDL 01/21/20 12/06/21 History valsartan 80 mg tablet (Diovan) 80 mg PO QDL 01/21/20 12/06/21 History docusate sodium 100 mg capsule 200 mg PO DAILY PRN 09/12/20 12/06/21 History (Col-Rite) polyethylene glycol 3350 17 gram 17 g PO UD PRN 09/14/20 12/06/21 History oral powder packet (Miralax) acetaminophen 325 mg tablet 650 mg PO Q4H PRN 04/23/21 12/06/21 History (Tylenol) carbidopa 25 mg-levodopa 250 mg 1 tab PO QID 04/23/21 12/06/21 History tablet iron,carbonyl 65 mg-vitamin C 125 1 tab PO QPM 04/23/21 12/06/21 History mg tablet,delayed release (Vitron-C) metoprolol succinate 25 mg 25 mg PO QAM 04/23/21 12/06/21 History tablet,extended release 24 hr nystatin 100,000 unit/gram topical 1 applic TOPICAL TID 04/23/21 12/06/21 History powder warfarin 3 mg tablet 3 mg PO QPM 04/23/21 12/06/21 History baclofen 10 mg tablet 10 mg PO HS PRN 12/06/21 12/06/21 History clotrimazole 1 % topical cream 1 applic TOPICAL BID 12/06/21 12/06/21 History ferrous sulfate 325 mg (65 mg 325 mg PO DAILY 12/06/21 12/06/21 History iron) tablet tramadol 50 mg tablet 100 mg PO Q8H PRN 12/06/21 12/06/21 History Past Med/Surg History Medical History Acute UTI (urinary tract infection) Anxiety Atrial fibrillation paroxysmal on warfarin CKD (chronic kidney disease) Contusion of multiple sites Depression DM type 2 (diabetes mellitus, type 2) diet controlled Fall Fall from ground level Hyperlipidemia Hypertension Obesity Osteoarthritis Parkinsons disease Rhabdomyolysis Urinary incontinence Vertigo Surgical History History of cholecystectomy lap cholecystectomy: 01/26/20: Grade 1 view, MAC#3, ETT 7 at [facility] History of incision and drainage shoulder> PT UNSURE OF DETAILS Hx of breast biopsy LEFT Hx of colonoscopy Family History Mother Atrial fibrillation Father Myocardial infarction Social History Smoking Status: Never smoker Second Hand Exposure: No; Hx Alcohol Use: No Hx Substance Use: No Preferred Language: Martiniquais Communication Ability: Effective Recreation Therapy Director Required: No Beliefs That Will Affect Care: None marital status: / Current Living Situation: Alone Current Living Situation Comment: Son living with her att, but moving out Feels Safe at Home: Yes Safety Concerns: Feels Safe At This Time Assistive Devices: Cane, Glasses and Walker Review of Systems Review of Systems: As per HPI, all other systems reviewed and negative Physical Exam Physical Exam: GENERAL: Slightly uncomfortable, masklike facies, no respiratory distress, obese SKIN: Normal color, warm HEENT: Bespectacled, pink palpebral conjunctivae, no ptosis, dry buccal mucosa NECK : Supple, short neck, no tenderness CHEST : CTA, no tenderness HEART :RRR, systolic murmur ABDOMEN: Some distention, nontender BACK : Low back tenderness, positive straight leg raise test R EXTREMITIES : Minimal LE swelling, no LE tenderness, no other conspicuous deformities noted NEUROLOGIC : Coherent, no facial asymmetry, rest tremors, gait and stance not assessed Results & Data Results & Data ([facility]) Vital Signs (Past 12 Hours) Vital Signs Temp Pulse Pulse Resp BP BP Pulse Ox 12/06/21 22:55 91 H 18 175/124 H 93 12/06/21 21:04 54 L 18 189/114 H 96 12/06/21 19:00 85 20 157/93 H 95 12/06/21 15:23 95 H 22 145/67 H 94 12/06/21 15:21 36.7 C 90 18 149/89 H 94 Laboratory Results Laboratory Results WBC 7.08 K/uL (4.8-10.8) 12/06/21 18:05 RBC 6.22 M/uL (4.2-5.4) H 12/06/21 18:05 Hgb 15.0 g/dL (12.0-16.0) 12/06/21 18:05 Hct 47.9 % (37-47) H 12/06/21 18:05 MCV 77.0 fL (80-100) L 12/06/21 18:05 MCH 24.1 pg (25-34) L 12/06/21 18:05 MCHC 31.3 g/dL (32-36) L 12/06/21 18:05 RDW Std Deviation 73.3 fL (36.4-46.3) H 12/06/21 18:05 RDW Coeff of Ratna 26.4 % (11.5-14.5) H 12/06/21 18:05 Plt Count 227 K/uL (130-400) 12/06/21 18:05 Immature Gran % (Auto) 0.1 % 12/06/21 18:05 Neut % (Auto) 69.3 % 12/06/21 18:05 Lymph % (Auto) 16.8 % 12/06/21 18:05 [place] % (Auto) 12.1 % 12/06/21 18:05 Eos % (Auto) 1.1 % 12/06/21 18:05 Baso % (Auto) 0.6 % 12/06/21 18:05 Neut # (Auto) 4.90 K/uL (1.4-6.5) 12/06/21 18:05 Lymph # (Auto) 1.19 K/uL (1.2-3.4) L 12/06/21 18:05 [place] # (Auto) 0.86 K/uL (0.11-0.59) H 12/06/21 18:05 Eos # (Auto) 0.08 K/uL (0-0.5) 12/06/21 18:05 Baso # (Auto) 0.04 K/uL (0-0.2) 12/06/21 18:05 Immature Gran # (Auto) 0.01 K/uL (0.00-0.02) 12/06/21 18:05 Anisocytosis Present 12/06/21 18:05 PT 26.4 Seconds (9.0-12.0) H 12/06/21 19:41 INR 2.6 (0.9-1.1) H 12/06/21 19:41 Sodium 138 mmol/L (136-145) 12/06/21 20:29 Potassium 4.1 mmol/L (3.5-5.1) 12/06/21 20: Chloride 104 mmol/L (98-107) 12/06/21 20: Carbon Dioxide 26 mmol/L (21-32) 12/06/21 20: Anion Gap 8 (3-11) 12/06/21: BUN 27 mg/dl (6-23) H 12/06/21: Creatinine 0.93 mg/dl (0.6-1.2) 12/06/21: Est Cr Clr Drug Dosing 56.2 ml/min 12/06/21 20: Est GFR ( Amer) 70.2 ml/min 12/06/21 20: Est GFR (Non-Af Amer) 60.5 ml/min 12/06/21 20: BUN/Creatinine Ratio 29.0 (10-20) H 12/06/21: Glucose 91 mg/dl (70-99(Fasting)) 12/06/21: Calcium 8.9 mg/dl (8.5-10.1) 12/06/21: Total Bilirubin 1.0 mg/dl (0.2-1.0) 12/06/21: AST 24 U/L (13-39) 12/06/21 20: ALT 4 U/L (7-52) L 12/06/21 20: Alkaline Phosphatase 83 U/L (34-104) 12/06/21: Total Protein 6.8 gm/dl (6.0-8.3) 12/06/21: Albumin 3.5 gm/dl (3.4-5.0) 12/06/21: Globulin 3.3 gm/dl (2.5-4.0) 12/06/21 20: Albumin/Globulin Ratio 1.1 (0.9-2) 12/06/21 20:29 SARS-CoV-2, RNA, NAAT NEGATIVE (NEGATIVE) 12/06/21 21:45 Impressions Lumbar Spine X-Ray 12/06/21 15:57 LUMBAR SPINE 3 VIEWS CLINICAL HISTORY: Chronic low back pain. Right lower extremity radiculopathy. FINDINGS: 3 views of the lumbar spine are correlated with lumbar spine CT dated 04/23/2021. The skeletal structures are osteopenic. There is no radiographic evidence of acute fracture or malalignment. Vertebral body height and alignment are maintained throughout the lumbar spine. There is postoperative change from laminectomy and posterior fusion seen at L2 to S1 with interpositioned bone graft. Interpedicular screws are present at all levels with the exception of L5. Degenerative sclerosis is again seen in the bodies between T11 and L2. Anterior and lateral marginal osteophytes are seen throughout. Facet arthropathy is noted in the lower lumbar region. There has been discectomy at L2-L3 and L5-S1. Moderate to severe disc space narrowing is noted at T12-L1 and L1-L2. Milder disc space narrowing is seen at the remaining lumbar levels. The bony pelvis is intact as visualized. Sclerotic change is noted in the sacroiliac joints. There are screw tracks from previous iliac bolts. Cholecystectomy clips are noted in the right upper quadrant. There is no bowel obstruction. Atherosclerotic calcification is seen throughout the abdominal aorta. IMPRESSION: 1. No acute bony abnormality is seen involving the lumbar spine. 2. Osteopenia with postoperative and spondylotic change as above. Dictated: 12/06/2021 5:18 PM Transcribed: 12/06/2021 5:36 PM Aretha [id number] [email or web address] Electronically signed by: Omar Hill M.D. 12/06/2021 5:[address] abdomen pelvis initial read: The solid organs are within normal limits. No bowel obstruction. Diverticulosis. Normal appendix. There are extensive surgical changes of the lumbar spine with posterior hardware extending from L1-S1. Multilevel laminectomies are noted. Stable postsurgical changes of the posterior subcutaneous fat.
[2021-12-06] MEDS ORDERED: LIDOCAINE 5% 1 PATCH TD STA (23:34)
[2021-12-07] MEDS ORDERED: OPTIRAY 320 100ml IV ONE (00:05)
[2021-12-07] MEDS ORDERED: BACLOFEN 10 MG TAB PO PRN (01:47)
[2021-12-07] MEDS ORDERED: SODIUM CHLORIDE 0.9% 1000ML 1,000 ML IV ONE (01:47)
[2021-12-07] MEDS ORDERED: GLUCOSE 10 TABS/TUBE PO PRN (01:47)
[2021-12-07] MEDS ORDERED: GLUCAGON FOR INJ 1 MG VIAL SQ PRN (01:47)
[2021-12-07] MEDS ORDERED: CARBOHYDRATES FOR HYPOGLYCEMIA PO PRN (01:47)
[2021-12-07] MEDS ORDERED: POLYETHYLENE (MIRALAX) 17 GM PACK PO PRN (01:47)
[2021-12-07] MEDS ORDERED: DEXTROSE 50% 50 ML SYRINGE IV PRN (01:47)
[2021-12-07] MEDS ORDERED: PROMETHAZINE HCL 12.5 MG in SODIUM CHLORIDE 0.9% 50 ML IV PRN (01:47)
[2021-12-07] MEDS ORDERED: DOCUSATE SODIUM 100 MG CAP PO PRN (01:47)
[2021-12-07] MEDS ORDERED: GLUCOSE 40% GEL 15 GM TUBE PO PRN (01:47)
[2021-12-07] MEDS ORDERED: MICONAZOLE NITRATE POWDER 43 GM EXT PRN (02:01)
[2021-12-07] MEDS: traMADol HCL 50 MG TABLET PO PRN ×2 (02:27→20:07)
[2021-12-07] MEDS: LORazepam 0.5 MG TAB PO SCH ×3 (02:44→20:07)
[2021-12-07] MEDS: INSULIN ASPART PER UNIT SC SCH ×5 (02:45→21:07)
[2021-12-07 03:02] LABS: Appearance Urine Clear (Clear); Bilirubin Urine Negative (Negative); Blood Urine Negative (Negative); Color Urine Yellow; Glucose Urine UA Negative (Negative); Ketones Urine Trace (Negative); Leukocyte Esterase Urine Negative (Negative); Nitrite Urine Negative (Negative); Protein Urine Negative (Negative); Specific Gravity Urine > 1.045 (1.000-1.030); Urobilinogen Urine Negative (Negative); pH Urine 5.5 (4.5-7.5)
[2021-12-07] MEDS: VALSARTAN 80 MG TAB PO SCH (03:54)
[2021-12-07 06:41] LABS: INR 2.4 (0.9-1.1); Prothrombin Time 24.3 Seconds (9.0-12.0)
[2021-12-07 06:49] LABS: Basophils # (auto) 0.04 K/uL (0-0.2); Basophils % (auto) 0.7 %; Eosinophils # (auto) 0.07 K/uL (0-0.5); Eosinophils % (auto) 1.2 %; Hematocrit (blood only) 42.2 % (37-47); Hemoglobin 13.5 g/dL (12.0-16.0); Immature Granulocytes # (auto) 0.01 K/uL (0.00-0.02); Immature Granulocytes % (auto) 0.2 %; Lymphocytes # (auto) 1.15 K/uL (1.2-3.4); Lymphocytes % (auto) 19.3 %; Mean Corpuscular Hemoglobin 24.9 pg (25-34); Mean Corpuscular Volume 77.7 fL (80-100); Monocytes # (auto) 0.78 K/uL (0.11-0.59); Monocytes % (auto) 13.1 %; Neutrophils # (auto) 3.91 K/uL (1.4-6.5); Neutrophils % (auto) 65.5 %; Platelet Count 201 K/uL (130-400); RDW Coefficient of Variation 26.6 % (11.5-14.5); RDW Standard Deviation 75.3 fL (36.4-46.3); Red Blood Count 5.43 M/uL (4.2-5.4); White Blood Count 5.96 K/uL (4.8-10.8)
[2021-12-07 07:05] LABS: Calcium 8.8 mg/dl (8.5-10.1); Creatinine Clr Calc Pharmacy 58.4 ml/min; Est GFR (Non-African American) 63.8 ml/min; Potassium 3.9 mmol/L (3.5-5.1)
[2021-12-07 07:28] LABS: Acanthocytes 1+; Anisocytosis Present; Ovalocytes 1+
--- NOTE | 2021-12-07 08:40 | Orthopedic Consultation ---
Date of Consultation December 07, 2021 Assessment & Plan (1) Radicular pain of right lower extremity: Assessment right leg pain. Plan at this time I am concerned she has adjacent level disease and perhaps another disc herniation. Elect obtain a thoracic and lumbar MRI to rule out gross neural compression. Make further conditions upon review of imaging. History of Present Illness Reason for Consultation: Bilateral leg pain Attending Physician: Clara Ibarra MD History of Present Illness This is a 76-year-old female well-known to me having undergone 2 previous lumbar surgeries. She presents with significant onset of right greater than left leg pain with standing. This morning she is lying in bed. She is comfortable lying still. She denies any perineal numbness or tingling. Denies any numbness or tingling lower extremities. Allergies Allergy/AdvReac Type Severity Reaction Status Date / Time pramipexole AdvReac Intermediate hallucinati Verified 12/06/21 23:18 ons Home Medications Medication Instructions Recorded Confirmed Type atorvastatin 40 mg tablet (Lipitor) 80 mg PO HS 01/21/20 12/06/21 History calcitriol 0.5 mcg capsule 0.5 mcg PO QDL 01/21/20 12/06/21 History cholecalciferol (vitamin D3) 25 50 mcg PO BID 01/21/20 12/06/21 History mcg (1,000 unit) tablet (Vitamin D3) escitalopram oxalate 10 mg tablet 10 mg PO QAM 01/21/20 12/06/21 History (Lexapro) lorazepam 0.5 mg tablet (Ativan) 0.5 mg PO AMHS 01/21/20 12/06/21 History raloxifene 60 mg tablet 60 mg PO QDL 01/21/20 12/06/21 History valsartan 80 mg tablet (Diovan) 80 mg PO QDL 01/21/20 12/06/21 History docusate sodium 100 mg capsule 200 mg PO DAILY PRN 09/12/20 12/06/21 History (Col-Rite) polyethylene glycol 3350 17 gram 17 g PO UD PRN 09/14/20 12/06/21 History oral powder packet (Miralax) acetaminophen 325 mg tablet 650 mg PO Q4H PRN 04/23/21 12/06/21 History (Tylenol) carbidopa 25 mg-levodopa 250 mg 1 tab PO QID 04/23/21 12/06/21 History tablet iron,carbonyl 65 mg-vitamin C 125 1 tab PO QPM 04/23/21 12/06/21 History mg tablet,delayed release (Vitron-C) metoprolol succinate 25 mg 25 mg PO QAM 04/23/21 12/06/21 History tablet,extended release 24 hr nystatin 100,000 unit/gram topical 1 applic TOPICAL TID 04/23/21 12/06/21 History powder warfarin 3 mg tablet 3 mg PO QPM 04/23/21 12/06/21 History baclofen 10 mg tablet 10 mg PO HS PRN 12/06/21 12/06/21 History clotrimazole 1 % topical cream 1 applic TOPICAL BID 12/06/21 12/06/21 History ferrous sulfate 325 mg (65 mg 325 mg PO DAILY 12/06/21 12/06/21 History iron) tablet tramadol 50 mg tablet 100 mg PO Q8H PRN 12/06/21 12/06/21 History Patient History Medical History Acute UTI (urinary tract infection) Anxiety Atrial fibrillation paroxysmal on warfarin CKD (chronic kidney disease) Contusion of multiple sites Depression DM type 2 (diabetes mellitus, type 2) diet controlled Fall Fall from ground level Hyperlipidemia Hypertension Obesity Osteoarthritis Parkinsons disease Rhabdomyolysis Urinary incontinence Vertigo Surgical History History of cholecystectomy lap cholecystectomy: 01/26/20: Grade 1 view, MAC#3, ETT 7 at [facility] History of incision and drainage shoulder> PT UNSURE OF DETAILS Hx of breast biopsy LEFT Hx of colonoscopy Family History Mother Atrial fibrillation Father Myocardial infarction Social History Smoking Status: Never smoker Second Hand Exposure: No; Hx Alcohol Use: No Hx Substance Use: No Preferred Language: Citizen [place] Communication Ability: Effective Denture Packer Required: No Beliefs That Will Affect Care: None marital status: / Current Living Situation: Alone Current Living Situation Comment: Son living with her att, but moving out Feels Safe at Home: Yes Safety Concerns: Feels Safe At This Time Assistive Devices: Cane, Glasses and Walker Physical Exam Physical Exam: On exam she is reasonable plantar flexion dorsiflexion quadriceps. Sensory is intact. Results & Data ([facility]) Vital Signs (Past 12 Hours) Vital Signs Temp Pulse Pulse Resp BP Pulse Ox 12/07/21 07:02 36.4 C L 89 18 143/91 H 92 12/07/21 04:09 36.7 C 97 H 20 157/92 H 93 12/07/21 02:00 36.9 C 80 80 18 182/77 H 95 12/07/21 01:58 36.9 C 80 18 182/77 H 95 12/07/21 01:20 90 14 182/97 H 94 12/07/21 00:42 83 20 197/95 H 93 12/06/21 22:55 91 H 18 175/124 H 93 12/06/21 21:04 54 L 18 189/114 H 96
--- NOTE | 2021-12-07 09:14 | CT Scan Report ---
ABDOMEN AND PELVIS CT WITH IV CONTRAST CT DOSE: 879.11 mGy.cm HISTORY: Acute generalized abdominal pain. History of prior sacral fractures. abd pain TECHNIQUE: Multiaxial CT images of the abdomen and pelvis were performed following the IV administrat ion of 93 cc of Optiray, A dose lowering technique was utilized adhering to the principles of ALARA. COMPARISON STUDY: CT abdomen and pelvis 04/23/2021, CT lumbar spine 06/08/2020, MRI lumbar spine 2020. FINDINGS: Cardiomegaly. Coronary artery calcifications. Partially imaged 1.2 cm consolidative opacity of the li ngula on image 1 favors scarring/atelectasis. There is no pneumatosis or pneumoperitoneum. Subcentimeter calcification of the spleen. Unremarkable pancreas and adrenal glands. Cholecystectomy. Heterogeneity of the liver. There are numerous subcentimeter hypodense foci of the liver redemonstra darlene which are too small to characterize, possibly paper sales representative of cysts. Patent portal vein. There are a few cysts of the kidneys measuring up to 1.9 cm on the right and 1.2 cm on the left. Ther e is a nonobstructing 3 mm calculus within the superior pole left kidney. Increased density of the le ft renal sinus. No hydronephrosis. Unremarkable uterus. Mild urinary bladder wall thickening. 1.9 cm diverticulum is noted along the right superior margin of the urinary bladder. Atherosclerosis of the aorta and branch vessels. There is no lymphadenopathy identified. Tiny hiatal hernia. No bowel obstruction or bowel wall thickening. Colonic diverticulosis. Mild to mo derate fecal retention. Normal appendix. No ascites or mesenteric inflammation. Tiny fat filled periu mbilical hernia. Demineralized appearance of the bones. Degenerative changes of the spine, pelvis and hips. There is evidence of prior removal of bilateral iliac bolts. Prior decompression and involving several levels within the lumbar spine. Posterior interbody lia and screw fusion hardware is noted a t L1-S1. Lumbar levoscoliosis. Paravertebral edema is noted at the T11-T12 and T12-L1 levels. Fragmen tation involving a right lateral osteophyte at T12 is new from the prior study. Multilevel vacuum dis c phenomenon. No definitive endplate erosions or acute fracture identified. IMPRESSION: 1. T11-T12 and T12-L1 paravertebral edema is indeterminate. Fragmentation of a right lateral T12 oste ophyte is new from 04/23/2021. Correlation with the ordered same day MRI lumbar spine is recommended t o exclude discitis/osteomyelitis. This finding was called/faxed to the floor at time of dictation. 2. Posterior interbody lia and screw fusion at L1-S1. 3. No bowel obstruction or bowel wall thickening. Normal appendix. 4. Nonobstructing left nephrolithiasis. 5. Additional findings as above. ACT 112: Negative or not required by law. The above report was generated using voice recognition software. It may contain grammatical, syntax o r spelling errors. Electronically signed by: Robert Restrepo M.D. 12/07/2021 9:13 AM
[2021-12-07] MEDS: METOPROLOL SUCC 25MG EXT REL TAB PO SCH (09:22)
[2021-12-07] MEDS: CARBIDOPA/LEVODOPA 25-250 1 EA TAB PO SCH ×4 (09:22→20:12)
[2021-12-07] MEDS: ESCITALOPRAM OXALATE 10 MG TAB PO SCH (09:22)
[2021-12-07] MEDS: FERROUS SULFATE 325 MG TAB PO SCH (09:22)
[2021-12-07] MEDS ORDERED: VALSARTAN 80 MG TAB PO SCH (11:30)
--- NOTE | 2021-12-07 14:03 | Magnetic Resonance Report ---
MRI OF THE THORACIC SPINE WITHOUT IV CONTRAST CLINICAL HISTORY: Leg pain. Chronic low back pain. Right lower extremity radiculopathy. COMPARISON STUDY: Abdominal CT dated 12/06/2021. TECHNIQUE: MRI of the thoracic spine is performed utilizing various T1 and T2-weighted sequences in t he axial and sagittal planes. IV contrast was not administered for this examination. The examination is severely compromised by motion artifact and susceptibility artifact from lumbar spinal fusion hard doherty. This degrades diagnostic utility. FINDINGS: There is fluid within the T12-L1 disc space and significant marrow edema within the T12 yarely tebral body. Marrow edema extends into the pedicles bilaterally. There is also Paravertebral edema at this level. Vertebral body height is otherwise maintained throughout the thoracic spine. There is hy perkyphosis. Fusion hardware is noted in the partially imaged lumbar spine. Degenerative disc desicca tion is seen throughout the thoracic spine. There is no evidence of large disc herniation or high-gra de central canal stenosis. The thoracic spinal cord is grossly normal in morphology. There is no obvi ous epidural fluid collection identified. This is not well evaluated on this unenhanced examination. The spinous processes are grossly intact. The neural foramina are not well assessed. No pleural effus ion is seen. IMPRESSION: 1. Severely compromised examination due to motion artifact and metallic hardware. 2. There is fluid within the T12-L1 disc space with marked marrow edema in the body of T12 and surrou nding paravertebral edema. The appearance is highly suspicious for discitis/osteomyelitis. Clinical c orrelation will be essential. 3. No obvious epidural fluid collection is identified. This is difficult to evaluate and cannot be ex cluded on this examination. 4. No additional suspicious findings are seen at the remaining thoracic levels. There is no significa nt acquired compromise of the central canal. Dictated: 12/07/2021 12:54 PM Transcribed: 12/07/2021 1:53 PM Madhavi [id number] [email or web address] Electronically signed by: Omar Hill M.D. 12/07/2021 2:01 PM
--- NOTE | 2021-12-07 14:58 | Magnetic Resonance Report ---
MR lumbar spine wo con CLINICAL HISTORY: Previous lumbar spine surgery with recurrent onset of bilateral leg pain, right gr eater than left.. COMPARISON: 04/23/2021 TECHNIQUE: Multiplanar multisequence images of the Lumbar Spine were performed without contrast. FINDINGS: This is a limited examination due to patient motion artifact despite sedation. Compared to the previous examination, the patient is status post interpedicular screw fixation now fr om L1 through S1. The images are significantly degraded. No definite evidence for an acute fracture o r malalignment is identified. The heights of the vertebral bodies are maintained. The vertebral keith s are in anatomic alignment. No definite evidence for marrow edema or marrow placement is identified. The disc space levels cannot be individually evaluated due to the motion artifact and imaging artifac t from internal fixation. IMPRESSION: 1. Markedly limited study due to patient motion artifact and imaging artifact from internal fixation. 2. No definite evidence for fracture is seen. 3. The disc space levels cannot be individually evaluated. ACT 112: Negative or not required by law. Electronically signed by: Tyrell Nolasco M.D. 12/07/2021 2:57 PM
[2021-12-07] MEDS: ATORVASTATIN 40 MG TAB PO SCH (20:12)
[2021-12-07] MEDS ORDERED: amLODIPine BESYLATE 5 MG TAB PO SCH (21:00)
[2021-12-08] MEDS: traMADol HCL 50 MG TABLET PO PRN
--- NOTE | 2021-12-08 00:01 | Hospitalist Progress Note ---
Date of Service December 07, 2021 Assessment & Plan (1) Back pain: (2) Radicular pain of right lower extremity: Plan: Present on admission with worsening back pain Lumbar xray showed no acute bony abnormality is seen involving the lumbar spine. Osteopenia with postoperative and spondylotic change MRI thoracic spine showed e is fluid within the T12-L1 disc space with marked marrow edema in the body of T12 and surrounding paravertebral edema. The appearance is highly suspicious for discitis/osteomyelitis. Ortho on board Case discussed with ortho Dr. Marcelino who is concerned about any nerve compression Continue pain control Will check CRP, ESR, procalcitonin and abx Will hold on abx for now, but if blood cx positive or pt develops any fever will start on abx Continue monitor closely Hypertension BP elevated possible due to back pain Continue BP med Afib rate control on metoprolol Continue coumadin, INR 2.4 today DVT px on Coumadin Code status full code Admission and Anticipated Discharge Date Admission Date: December 06, 2021 Subjective Pt was seen and examined for follow up of back pain Lying in bed with no acute distress complaining of severe back pain Pt said that pain worsening when standing on her legs She said that her pain is intense on and off Denies any chest pain, palpitation, dizziness, fever and SOB Review of Systems Review of Systems: All systems reviewed & are unremarkable except as noted in Subjective Physical Exam Physical Exam: General- No acute distress Head- atraumatic Eyes- PERRL, EOMI, ENT- oropharynx clear Neck- supple, no JVD Lungs- clear to auscultation Heart- regular rhythm; +systolic murmur Abdomen- normal bowel sounds, soft, nontender Extremities- no calf tenderness Neuro- alert, oriented x 3; PERRL, EOMI; no facial palsy; no dysarthria Skin- warm & dry Results & Data Results & Data ([facility]) Vital Signs (Past 12 Hours) Vital Signs Temp Pulse Pulse Resp BP Pulse Ox 12/07/21 22:20 84 12/07/21 19:33 37.4 C 76 20 131/72 92 12/07/21 16:06 75 12/07/21 15:52 36.9 C 74 18 152/85 H 94
[2021-12-08] MEDS ORDERED: MoRPHine SULFATE 4 MG/ML 1 ML CARP\\VIAL IV PRN (02:06)
[2021-12-08] MEDS: oxyCODONE HCL IR 5 MG TAB (IMMEDIATE RELEASE) PO PRN ×2 (02:21→17:09)
[2021-12-08 06:56] LABS: Hematocrit (blood only) 41.8 % (37-47); Hemoglobin 13.1 g/dL (12.0-16.0); Mean Corpuscular Hgb Conc 31.3 g/dL (32-36); Mean Corpuscular Volume 76.6 fL (80-100); Platelet Count 187 K/uL (130-400); RDW Coefficient of Variation 26.3 % (11.5-14.5); RDW Standard Deviation 72.4 fL (36.4-46.3); Red Blood Count 5.46 M/uL (4.2-5.4); White Blood Count 6.62 K/uL (4.8-10.8)
[2021-12-08] MEDS: INSULIN ASPART PER UNIT SC SCH ×4 (08:42→20:16)
[2021-12-08] MEDS: ESCITALOPRAM OXALATE 10 MG TAB PO SCH (08:48)
[2021-12-08] MEDS: CARBIDOPA/LEVODOPA 25-250 1 EA TAB PO SCH ×4 (08:48→20:58)
[2021-12-08] MEDS: METOPROLOL SUCC 25MG EXT REL TAB PO SCH (08:48)
[2021-12-08] MEDS: FERROUS SULFATE 325 MG TAB PO SCH (08:48)
[2021-12-08] MEDS: LORazepam 0.5 MG TAB PO SCH ×2 (08:52→20:57)
[2021-12-08] MEDS: predniSONE 20 MG TAB PO SCH (09:14)
--- NOTE | 2021-12-08 09:33 | Orthopedic Progress Note ---
Date of Service December 08, 2021 Assessment & Plan (1) Radicular pain of right lower extremity: Plan: Assessment lumbar spinal stenosis. Plan at this time there is been some concern regarding a T12-L1 discitis. I believe this is more degenerative in nature and adjacent level disease. Nevertheless we will continue continue to assess the blood cultures and inflammatory markers. I would like to supplement her imaging with a thoracic CAT scan for further bony detail as her MRI imaging demonstrates significant motion artifact and interference with metal. Ultimately we may need to consider extending the fusion across the thoracolumbar region. Admission and Anticipated Discharge Date Admission Date: December 06, 2021 Subjective Patient states her back and leg pain is controlled at this time. She denies any loss of bowel bladder control. She denies any numbness. Physical Exam Physical Exam: Patient is in bed at this time. She has reasonable plantar flexion dorsiflexion. She states she has full sensation. Results & Data ([facility]) Vital Signs (Past 12 Hours) Vital Signs Temp Pulse Pulse Pulse Resp BP Pulse Ox 12/08/21 07:34 36.8 C 74 18 174/100 H 94 12/08/21 06:49 36.6 C 59 L 18 172/111 H 100 12/08/21 00:07 37.1 C 73 20 159/88 H 93 12/07/21 22:20 84
--- NOTE | 2021-12-08 09:52 | CT Scan Report ---
THORACIC SPINE CT CT DOSE: 1095.62 mGy.cm HISTORY: back pain TECHNIQUE: Multiaxial CT images of the thoracic spine were performed and reformatted in the sagittal and coronal plane without the use of contrast. A dose lowering technique was utilized adhering to th e principles of ALARA. COMPARISON: Thoracic spine MRI 12/07/2017. FINDINGS: Posterior fusion hardware again noted at the lumbar spine originating at the L1 level. This is only partially imaged on this study. No fracture or subluxation within the lumbar spine. Flowing anterior osteophytes/syndesmophytes seen within the mid to lower thoracic spine resulting in partial fusion of the C5-T10 levels. There is moderate to severe disc space narrowing at T10-11 and T11-T12. There is vacuum phenomenon at T12-L1 with endplate sclerosis and mild endplate irregularity. There ar e large anterior osteophytes seen within the lower thoracic spine. The majority of the mid to lower t horacic spine facets are also fused. Mild dextroscoliosis which could be positional. No pneumothorax. Mild dependent changes seen within the lungs posteriorly. Mild paravertebral fat stranding at the T1 2-L1 disc space level. [id number] central canal narrowing at T12-L1 due to broad-based posterio r disc bulge and ligamentum flavum and facet hypertrophy. Otherwise, no additional areas of significa nt central canal narrowing within the thoracic spine. IMPRESSION: 1. No acute fracture or subluxation within the lumbar spine. 2. Partially visualized lumbar spinal fusion hardware. 3. Endplate sclerosis and irregularity with vacuum phenomenon noted at the T12-L1 disc space level. T here is also mild paravertebral soft tissue swelling at this level. Given the adjacent postoperative changes these findings are nonspecific and could represent chronic degenerative disc disease. A disci tis/osteomyelitis could also a similar appearance in the appropriate clinical setting. This is simila r to the prior MRI. 4. Partially fused vertebral bodies and facets within the mid to lower thoracic spine as described ab ove ACT 112: Negative or not required by law. Electronically signed by: Carlos Vera M.D. 12/08/2021 9:50 AM
[2021-12-08] MEDS ORDERED: hydrALAZINE HCL 20 MG/ML VIAL IV PRN (11:35)
[2021-12-08] MEDS: VALSARTAN 80 MG TAB PO SCH (12:04)
[2021-12-08] MEDS: ATORVASTATIN 40 MG TAB PO SCH (20:57)
[2021-12-08] MEDS: amLODIPine BESYLATE 5 MG TAB PO SCH (20:58)
[2021-12-08] MEDS: ACETAMINOPHEN 325 MG TAB PO PRN (21:02)
--- NOTE | 2021-12-08 21:46 | Hospitalist Progress Note ---
Date of Service December 08, 2021 Assessment & Plan (1) Back pain: (2) Radicular pain of right lower extremity: Plan: Present on admission with worsening back pain Lumbar xray showed no acute bony abnormality is seen involving the lumbar spine. Osteopenia with postoperative and spondylotic change MRI thoracic spine showed e is fluid within the T12-L1 disc space with marked marrow edema in the body of T12 and surrounding paravertebral edema. The appearance is highly suspicious for discitis/osteomyelitis. CT thoracic spine showed endplate sclerosis and irregularity with vacuum phenomenon noted at the T12-L1 disc space level. There is also mild paraverte bral soft tissue swelling at this level. Given the adjacent postoperative changes these findings are nonspecific and could represent chronic degenerative disc disease. Ortho on board Case discussed with ortho Dr. Marcelino who is concerned about any nerve compression Continue pain control CRP, ESR, procalcitonin are normal Blood cx pending Continue to hold on abx for now, but if blood cx positive or pt develops any fever will start on abx Continue monitor closely Hypertension BP elevated possible due to back pain Continue BP med Afib rate control on metoprolol Continue coumadin, INR 2.4 today DVT px on Coumadin Code status full code Admission and Anticipated Discharge Date Admission Date: December 06, 2021 Subjective Pt was seen and examined for follow up of back pain Lying in bed with no acute distress She said that back pain improves Denies any chest pain, palpitation, dizziness, fever and SOB Review of Systems Review of Systems: All systems reviewed & are unremarkable except as noted in Subjective Physical Exam Physical Exam: General- No acute distress Head- atraumatic Eyes- PERRL, EOMI, ENT- oropharynx clear Neck- supple, no JVD Lungs- clear to auscultation Heart- regular rhythm; +systolic murmur Abdomen- normal bowel sounds, soft, nontender Extremities- no calf tenderness Neuro- alert, oriented x 3; PERRL, EOMI; no facial palsy; no dysarthria Skin- warm & dry Results & Data Results & Data ([facility]) Vital Signs (Past 12 Hours) Vital Signs Temp Pulse Resp BP Pulse Ox 12/08/21 18:41 36.8 C 87 18 108/63 93 12/08/21 18:00 150/97 H 12/08/21 15:14 36.7 C 95 H 18 181/98 H 92 12/08/21 10:36 36.8 C 86 18 176/118 H 92
[2021-12-08] MEDS ORDERED: WARFARIN SOD 3 MG TAB PO ONE (22:26)
[2021-12-09 07:57] LABS: Hematocrit (blood only) 43.4 % (37-47); Hemoglobin 13.7 g/dL (12.0-16.0); Mean Corpuscular Hgb Conc 31.6 g/dL (32-36); Mean Corpuscular Volume 76.1 fL (80-100); Platelet Count 194 K/uL (130-400); RDW Coefficient of Variation 26.1 % (11.5-14.5); RDW Standard Deviation 71.6 fL (36.4-46.3); White Blood Count 5.97 K/uL (4.8-10.8)
[2021-12-09 08:01] LABS: INR 1.6 (0.9-1.1)
[2021-12-09] MEDS: INSULIN ASPART PER UNIT SC SCH ×5 (08:13→21:48)
[2021-12-09] MEDS: predniSONE 20 MG TAB PO SCH (08:39)
[2021-12-09] MEDS: CARBIDOPA/LEVODOPA 25-250 1 EA TAB PO SCH ×4 (08:39→20:23)
[2021-12-09] MEDS: METOPROLOL SUCC 25MG EXT REL TAB PO SCH (08:39)
[2021-12-09] MEDS: ESCITALOPRAM OXALATE 10 MG TAB PO SCH (08:39)
[2021-12-09] MEDS: FERROUS SULFATE 325 MG TAB PO SCH (08:40)
[2021-12-09] MEDS: ACETAMINOPHEN 325 MG TAB PO PRN ×2 (08:40→21:47)
[2021-12-09] MEDS: LORazepam 0.5 MG TAB PO SCH ×2 (08:40→20:23)
[2021-12-09] MEDS: VALSARTAN 80 MG TAB PO SCH (12:29)
[2021-12-09] MEDS: WARFARIN SOD 3 MG TAB PO SCH (16:18)
--- NOTE | 2021-12-09 18:23 | Hospitalist Progress Note ---
Date of Service December 09, 2021 Assessment & Plan (1) Back pain: (2) Radicular pain of right lower extremity: Plan: Present on admission with worsening back pain Lumbar xray showed no acute bony abnormality is seen involving the lumbar spine. Osteopenia with postoperative and spondylotic change MRI thoracic spine showed e is fluid within the T12-L1 disc space with marked marrow edema in the body of T12 and surrounding paravertebral edema. The appearance is highly suspicious for discitis/osteomyelitis. CT thoracic spine showed endplate sclerosis and irregularity with vacuum phenomenon noted at the T12-L1 disc space level. There is also mild paraverte bral soft tissue swelling at this level. Given the adjacent postoperative changes these findings are nonspecific and could represent chronic degenerative disc disease. Ortho on board Case discussed with ortho Dr. Marcelino who is concerned about any nerve compression Continue pain control CRP, ESR, procalcitonin are normal Blood cx no growrth Continue to hold on abx for now, but if blood cx positive or pt develops any fever will start on abx Continue monitor closely Hypertension BP elevated possible due to back pain Continue BP med UTI Urine cx outpatient on 12/04 grew ECOLI and strep viridan group Will start on Ceftriaxone Afib rate control on metoprolol Continue coumadin, INR 1.6 today DVT px on Coumadin Code status full code Outpatient cx ulture Growth 10,000 to 100,000 colonies/mL Escherichi a coliAbnormalAmpC Beta- lactamase producing organism. This gram negative bacilli displays in vitro resistance to multiple antibiotics.10,000 to 100,000 colonies/mL Streptococcus viridans groupAbnormal<10,000 colonies/ml mixed normal sruthi Resulting Agency: Susceptibility Escherichia coliMICROBROTH DILUTIONS AmpicillinResistantAmpicillin/SulbactamIntermediateCefazolinResistantCefepimeSus ceptibleCefoxitinIntermediateCeftriaxoneSusceptibleCiprofloxacinSusceptible1 GentamicinSusceptibleNitrofurantoinSusceptiblePiperacillin TazobactamSusceptibleTrimeth/SulfamethoxazoleSusceptible Admission and Anticipated Discharge Date Admission Date: December 09, 2021 Subjective Pt was seen and examined for follow up of back pain Sitting in chair with no acute distress She said that back pain improves Received a call from PCP about outpatient urine cx that grew Ecoli and Strep viridans group Denies any chest pain, palpitation, dizziness, fever and SOB Review of Systems Review of Systems: All systems reviewed & are unremarkable except as noted in Subjective Physical Exam Physical Exam: General- No acute distress Head- atraumatic Eyes- PERRL, EOMI, ENT- oropharynx clear Neck- supple, no JVD Lungs- clear to auscultation Heart- regular rhythm; +systolic murmur Abdomen- normal bowel sounds, soft, nontender Extremities- no calf tenderness Neuro- alert, oriented x 3; PERRL, EOMI; no facial palsy; no dysarthria Skin- warm & dry Results & Data Results & Data ([facility]) Vital Signs (Past 12 Hours) Vital Signs Temp Pulse Pulse Resp BP BP Pulse Ox 12/09/21 14:53 36.4 C L 72 18 143/82 H 98 12/09/21 14:18 83 12/09/21 11:14 36.7 C 93 H 18 147/89 H 95 12/09/21 08:01 36.4 C L 74 18 170/95 H 92
[2021-12-09] MEDS: ATORVASTATIN 40 MG TAB PO SCH (20:22)
[2021-12-09] MEDS: amLODIPine BESYLATE 5 MG TAB PO SCH (20:23)
[2021-12-09] MEDS: cefTRIAXone SODIUM 2,000 MG in DEXTROSE 5% 50 ML IV SCH (20:23)
[2021-12-10] MEDS: ACETAMINOPHEN 325 MG TAB PO PRN ×2 (06:04→22:29)
[2021-12-10] MEDS: FERROUS SULFATE 325 MG TAB PO SCH (08:12)
[2021-12-10] MEDS: METOPROLOL SUCC 25MG EXT REL TAB PO SCH (08:13)
[2021-12-10] MEDS: CARBIDOPA/LEVODOPA 25-250 1 EA TAB PO SCH ×4 (08:13→22:18)
[2021-12-10] MEDS: ESCITALOPRAM OXALATE 10 MG TAB PO SCH (08:13)
[2021-12-10] MEDS: predniSONE 20 MG TAB PO SCH (08:13)
[2021-12-10] MEDS: LORazepam 0.5 MG TAB PO SCH ×2 (08:16→22:29)
[2021-12-10] MEDS: LIDOCAINE 5% 1 PATCH TD SCH (09:07)
[2021-12-10 09:28] LABS: Prothrombin Time 20.5 Seconds (9.0-12.0)
[2021-12-10 09:57] LABS: BUN Creatinine Ratio 29.9 (10-20); Calcium 8.9 mg/dl (8.5-10.1); Creatinine Clr Calc Pharmacy 53.4 ml/min; Est GFR (African American) 66.7 ml/min; Est GFR (Non-African American) 57.5 ml/min; Potassium 3.8 mmol/L (3.5-5.1)
[2021-12-10] MEDS: INSULIN ASPART PER UNIT SC SCH ×3 (12:28→22:26)
[2021-12-10] MEDS: VALSARTAN 80 MG TAB PO SCH (12:29)
[2021-12-10] MEDS: WARFARIN SOD 3 MG TAB PO SCH (16:08)
[2021-12-10] MEDS: oxyCODONE HCL IR 5 MG TAB (IMMEDIATE RELEASE) PO PRN (18:32)
[2021-12-10] MEDS: cefTRIAXone SODIUM 2,000 MG in DEXTROSE 5% 50 ML IV SCH (18:33)
--- NOTE | 2021-12-10 21:43 | Hospitalist Progress Note ---
Date of Service December 10, 2021 Assessment & Plan (1) Back pain: (2) Radicular pain of right lower extremity: Plan: Present on admission with worsening back pain Lumbar xray showed no acute bony abnormality is seen involving the lumbar spine. Osteopenia with postoperative and spondylotic change MRI thoracic spine showed e is fluid within the T12-L1 disc space with marked marrow edema in the body of T12 and surrounding paravertebral edema. The appearance is highly suspicious for discitis/osteomyelitis. CT thoracic spine showed endplate sclerosis and irregularity with vacuum phenomenon noted at the T12-L1 disc space level. There is also mild paraverte bral soft tissue swelling at this level. Given the adjacent postoperative changes these findings are nonspecific and could represent chronic degenerative disc disease. Ortho on board Case discussed with ortho Dr. Marcelino who is concerned about any nerve compression ESR mildly elevated at 43, then trending down to 38 Continue pain control CRP and procalcitonin are normal Blood cx no growrth Continue to hold on abx for now, but if blood cx positive or pt develops any fever will start on abx Continue monitor closely Hypertension BP elevated possible due to back pain Continue BP med UTI Urine cx outpatient on 12/04 grew ECOLI and strep viridan group Continue Ceftriaxone Afib rate control on metoprolol Continue coumadin, INR 2 today DVT px on Coumadin Code status full code Outpatient cx ulture Growth 10,000 to 100,000 colonies/mL Escher[place] a coliAbnormalAmpC Beta- lactamase producing organism. This gram negative bacilli displays in vitro resistance to multiple antibiotics.10,000 to 100,000 colonies/mL Streptococcus viridans groupAbnormal<10,000 colonies/ml mixed normal sruthi Resulting Agency: Susceptibility Escherichia coliMICROBROTH DILUTIONS AmpicillinResistantAmpicillin/SulbactamIntermediateC efazolinResistantCefepimeSusceptibleCefoxitinIntermediateCeftriaxoneSusceptibleC iprofloxacinSusceptible1 GentamicinSusceptibleNitrofurantoinSusceptiblePiperacillin TazobactamS usceptibleTrimeth/SulfamethoxazoleSusceptible Admission and Anticipated Discharge Date Admission Date: December 09, 2021 Subjective Pt was seen and examined for follow up of back pain Sitting in chair with no acute distress She said that back pain improves Denies any chest pain, palpitation, dizziness, fever and SOB Review of Systems Review of Systems: All systems reviewed & are unremarkable except as noted in Subjective Physical Exam Physical Exam: General- No acute distress Head- atraumatic Eyes- PERRL, EOMI, ENT- oropharynx clear Neck- supple, no JVD Lungs- clear to auscultation Heart- regular rhythm; +systolic murmur Abdomen- normal bowel sounds, soft, nontender Extremities- no calf tenderness Neuro- alert, oriented x 3; PERRL, EOMI; no facial palsy; no dysarthria Skin- warm & dry Results & Data Results & Data ([facility] [place]) Vital Signs (Past 12 Hours) Vital Signs Temp Pulse Pulse Pulse Resp BP Pulse Ox 12/10/21 19:45 36.7 C 78 18 159/93 H 97 12/10/21 15:06 36.8 C 95 H 18 145/83 H 93 12/10/21 14:19 79 12/10/21 11:15 36.6 C 65 18 149/77 H 97
[2021-12-10] MEDS: amLODIPine BESYLATE 5 MG TAB PO SCH (22:17)
[2021-12-10] MEDS: ATORVASTATIN 40 MG TAB PO SCH (22:17)
[2021-12-11 07:17] LABS: INR 2.6 (0.9-1.1); Prothrombin Time 26.1 Seconds (9.0-12.0)
[2021-12-11] MEDS: CARBIDOPA/LEVODOPA 25-250 1 EA TAB PO SCH ×4 (07:59→20:53)
[2021-12-11] MEDS: predniSONE 20 MG TAB PO SCH (08:00)
[2021-12-11] MEDS: LIDOCAINE 5% 1 PATCH TD SCH (08:00)
[2021-12-11] MEDS: FERROUS SULFATE 325 MG TAB PO SCH (08:00)
[2021-12-11] MEDS: ESCITALOPRAM OXALATE 10 MG TAB PO SCH (08:00)
[2021-12-11] MEDS: VALSARTAN 80 MG TAB PO SCH (08:00)
[2021-12-11] MEDS: METOPROLOL SUCC 25MG EXT REL TAB PO SCH (08:00)
[2021-12-11] MEDS: LORazepam 0.5 MG TAB PO SCH ×2 (08:06→20:52)
[2021-12-11] MEDS: INSULIN ASPART PER UNIT SC SCH ×4 (09:42→20:52)
[2021-12-11] MEDS ORDERED: PHYTONADIONE 5 MG TAB PO STA ×2 (11:50→21:39)
--- NOTE | 2021-12-11 13:23 | Orthopedic Progress Note ---
Date of Service December 11, 2021 Assessment & Plan (1) Myelopathy concurrent with and due to spinal stenosis of thoracic region: Plan: Assessment T12-L1 spinal stenosis with instability. Plan I discussed with this patient reviewing her CAT scan and MRI findings. She does describe significant leg pain shocklike symptoms when she tries to stand or ambulate. She does demonstrate evidence of stenosis and instability at the T12-L1 level. Subsequently I am recommending thoracolumbar decompression fusion T11 and L1. Risk benefits pros cons outlined in detail. At this time we will make her n.p.o. and plan for surgery as soon as tomorrow. Admission and Anticipated Discharge Date Admission Date: December 09, 2021 Subjective Bilateral leg pain and numbness Physical Exam Physical Exam: On exam patient is in the chair at the bedside. She has reasonable plantar flexion dorsiflexion quadriceps but is unable to stand secondary to pain. Results & Data ([facility]) Vital Signs (Past 12 Hours) Vital Signs Temp Pulse Pulse Resp BP BP Pulse Ox 12/11/21 11:25 36.3 C L 68 16 148/90 H 97 12/11/21 07:45 36.4 C L 77 16 173/95 H 98 12/11/21 07:00 80 12/11/21 04:29 79 12/11/21 04:14 36.5 C 76 20 143/84 H 93
--- NOTE | 2021-12-11 15:43 | Anesthesiology Consultation ---
Date of Service December 11, 2021 Assessment & Plan (1) Encounter for pre-operative examination: Chart Review Chart Review: entry level initiated History Surgery Operation Date: 12/12/21 12:15 Proposed Procedures p T11-L1 Decompression and Fusion - Yehuda Marcelino DO Height/Weight Height: 5 ft 2 in Weight: 93.3 kg Allergies Allergy/AdvReac Type Severity Reaction Status Date / Time pramipexole AdvReac Intermediate hallucinati Verified 12/06/21 23:18 ons Medications Home Medications Medication Instructions Recorded Confirmed Last Taken atorvastatin 40 mg tablet (Lipitor) 80 mg PO HS 01/21/20 12/06/21 07/08/21 calcitriol 0.5 mcg capsule 0.5 mcg PO QDL 01/21/20 12/06/21 07/09/21 cholecalciferol (vitamin D3) 25 50 mcg PO BID 01/21/20 12/06/21 07/09/21 08:00 mcg (1,000 unit) tablet (Vitamin D3) escitalopram oxalate 10 mg tablet 10 mg PO QAM 01/21/20 12/06/21 07/09/21 (Lexapro) lorazepam 0.5 mg tablet (Ativan) 0.5 mg PO AMHS 01/21/20 12/06/21 07/09/21 08:00 raloxifene 60 mg tablet 60 mg PO QDL 01/21/20 12/06/21 07/09/21 valsartan 80 mg tablet (Diovan) 80 mg PO QDL 01/21/20 12/06/21 07/09/21 docusate sodium 100 mg capsule 200 mg PO DAILY PRN 09/12/20 12/06/21 Unknown (Col-Rite) polyethylene glycol 3350 17 gram 17 g PO UD PRN 09/14/20 12/06/21 Unknown oral powder packet (Miralax) acetaminophen 325 mg tablet 650 mg PO Q4H PRN 04/23/21 12/06/21 Unknown (Tylenol) carbidopa 25 mg-levodopa 250 mg 1 tab PO QID 04/23/21 12/06/21 07/09/21 12:00 tablet iron,carbonyl 65 mg-vitamin C 125 1 tab PO QPM 04/23/21 12/06/21 07/08/21 mg tablet,delayed release (Vitron-C) metoprolol succinate 25 mg 25 mg PO QAM 04/23/21 12/06/21 07/09/21 tablet,extended release 24 hr nystatin 100,000 unit/gram topical 1 applic TOPICAL TID 04/23/21 12/06/21 07/09/21 08:00 powder warfarin 3 mg tablet 3 mg PO QPM 04/23/21 12/06/21 07/08/21 baclofen 10 mg tablet 10 mg PO HS PRN 12/06/21 12/06/21 Unknown clotrimazole 1 % topical cream 1 applic TOPICAL BID 12/06/21 12/06/21 Unknown ferrous sulfate 325 mg (65 mg 325 mg PO DAILY 12/06/21 12/06/21 Unknown iron) tablet tramadol 50 mg tablet 100 mg PO Q8H PRN 12/06/21 12/06/21 Unknown Active Medications Generic Name Dose Route Start Last Admin Trade Name Freq PRN Reason Stop Dose Admin Acetaminophen 650 mg 12/07/21 01:47 12/10/21 22:29 Acetaminophen 325 Mg Tab PO 01/06/22 01:46 650 mg Q4H PRN Administration FEVER/PAIN Amlodipine Besylate 5 mg 12/08/21 21:00 12/10/21 22:17 Amlodipine Besylate 5 Mg Tab PO 01/07/22 20:59 5 mg HS CRISTAL Administration Atorvastatin Calcium 80 mg 12/07/21 21:00 12/10/21 22:17 Atorvastatin 40 Mg Tab PO 01/06/22 20:59 80 mg HS CRISTAL Administration Baclofen 10 mg 12/07/21 01:47 12/07/21 22:59 Baclofen 10 Mg Tab PO 01/06/22 01:46 10 mg HS PRN Administration Muscle Spasm Carbidopa/Levodopa 1 tab 12/07/21 09:00 12/11/21 13:04 Carbidopa/Levodopa 25-250 1 Ea Tab PO 01/06/22 08:59 1 tab QID@0900,1200,1600,2100 CRISTAL Administration Docusate Sodium 200 mg 12/07/21 01:47 12/10/21 13:50 Docusate Sodium 100 Mg Cap PO 01/06/22 01:46 200 mg DAILY PRN Administration Constipation Escitalopram Oxalate 10 mg 12/07/21 09:00 12/11/21 08:00 Escitalopram Oxalate 10 Mg Tab PO 01/06/22 08:59 10 mg QAM CRISTAL Administration Ferrous Sulfate 325 mg 12/07/21 08:00 12/11/21 08:00 Ferrous Sulfate 325 Mg Tab PO 01/06/22 07:59 325 mg DAILY@0800 CRISTAL Administration Hydralazine HCl 5 mg 12/08/21 11:35 12/08/21 15:20 Hydralazine Hcl 20 Mg/Ml Vial IV 01/07/22 11:44 5 mg Q6H PRN Administration SBP above 170 Ceftriaxone Sodium 2,000 mg/ 70 mls @ 140 mls/hr 12/09/21 19:00 12/10/21 20:05 Dextrose IV 12/14/21 18:59 Infused Q24H CRITSAL Infusion Protocol Insulin Aspart 0 units 12/07/21 01:47 12/11/21 13:04 Insulin Aspart Per Unit SC 01/06/22 01:46 Not Given ACHS CRISTAL Lidocaine 1 patch 12/10/21 09:00 12/11/21 08:00 Lidocaine 5% 1 Patch TD 01/09/22 08:59 1 patch QAM CRISTAL Administration Lorazepam 0.5 mg 12/07/21 01:47 12/11/21 08:06 Lorazepam 0.5 Mg Tab PO 01/06/22 01:46 0.5 mg AMHS CRISTAL Administration Metoprolol Succinate 25 mg 12/07/21 09:00 12/11/21 08:00 Metoprolol Succ 25mg Ext Rel Tab PO 01/06/22 08:59 25 mg QAM CRISTAL Administration Miconazole Nitrate 1 appln 12/07/21 02:01 12/07/21 21:00 Miconazole Nitrate Powder 43 Gm EXT 01/06/22 02:00 1 appln PRN PRN Administration Affected Skin Folds Miscellaneous 1 ea 12/10/21 21:00 12/10/21 22:19 Remove Lidoderm Patch N/A 01/09/22 20:59 1 ea DAILY@2100 CRISTAL Administration Oxycodone HCl 5 - 10 mg 12/08/21 02:06 12/10/21 18:32 Oxycodone Hcl Ir 5 Mg Tab (Immediate Release) PO 12/22/21 02:05 5 mg QID PRN Administration Pain Prednisone 20 mg 12/08/21 09:00 12/11/21 08:00 Prednisone 20 Mg Tab PO 01/07/22 08:59 20 mg DAILY CRISTAL Administration Valsartan 80 mg 12/07/21 02:25 12/11/21 08:00 Valsartan 80 Mg Tab PO 01/06/22 02:24 80 mg QDL CRISTAL Administration Past Medical History Medical History Acute UTI (urinary tract infection) Anxiety Atrial fibrillation paroxysmal on warfarin CKD (chronic kidney disease) Contusion of multiple sites Depression DM type 2 (diabetes mellitus, type 2) diet controlled Fall Fall from ground level Hyperlipidemia Hypertension Obesity Osteoarthritis Parkinsons disease Rhabdomyolysis Urinary incontinence Vertigo Past Family History Family History Mother Atrial fibrillation Father Myocardial infarction Past Surgical History Surgical History History of cholecystectomy lap cholecystectomy: 01/26/20: Grade 1 view, MAC#3, ETT 7 at [facility] History of incision and drainage shoulder> PT UNSURE OF DETAILS Hx of breast biopsy LEFT Hx of colonoscopy Social History Smoking Status: Never smoker Hx Alcohol Use: No Hx Substance Use: No substance use type: does not use Physical Exam Vital Signs Last Vital Signs Temp 97.3 F L 12/11/21 11:25 Pulse 69 12/11/21 14:25 Resp 16 12/11/21 11:25 BP 148/90 H 12/11/21 11:25 Pulse Ox 97 12/11/21 11:25 Testing Laboratory Results 12/09/21 06:55 12/10/21 08:37 PT 26.1 Seconds (9.0-12.0) H 12/11/21 05:28 INR 2.6 (0.9-1.1) H 12/11/21 05:28 Urine Color Yellow 12/07/21 Unknown Urine Appearance Clear (Clear) 12/07/21 Unknown Urine pH 5.5 (4.5-7.5) 12/07/21 Unknown Ur Specific [place] > 1.045 (1.000-1.030) H 12/07/21 Unknown Urine Protein Negative (Negative) 12/07/21 Unknown Urine Glucose (UA) Negative (Negative) 12/07/21 Unknown Urine Ketones Trace (Negative) H 12/07/21 Unknown Urine Nitrite Negative (Negative) 12/07/21 Unknown Ur Leukocyte Esterase Negative (Negative) 12/07/21 Unknown 12/07/21 15:49 Aerobic Blood Culture - Preliminary Blood No growth in Aerobic bottle after 48 hours. Anaerobic Blood Culture - Preliminary No growth in Anaerobic bottle after 48 hours. 12/07/21 15:49 Aerobic Blood Culture - Preliminary Blood No growth in Aerobic bottle after 48 hours. Anaerobic Blood Culture - Preliminary No growth in Anaerobic bottle after 48 hours. 12/11/21 12/11/21 11:52 07:56 POC Glucose 129 H 112 H Electrocardiogram Date: 04/23/21 Atrial fibrillation, rate 70 bpm Anterior infarct (cited on or before 23-APR-2021) Abnormal ECG When compared with ECG of 14-SEP-2020 16:45, No significant change was found Confirmed by Lyle Foy ([id number]) on 04/23/2021 7:56:37 PM Stress Test Date: 01/20/20 Type: DSE Stress echo negative for inducible ischemia. EF 55-60%. Mildly increased cLV wall thickness. Grade 3 DD with restrictive physiology. Mild MR/TR. Severe LAE. Moderate CHASITY. PASP borderline elevated (44mmhg). 127% MPHR.
[2021-12-11] MEDS ORDERED: WARFARIN SOD 2 MG TAB PO SCH (16:00)
[2021-12-11 19:49] LABS: INR 2.9 (0.9-1.1)
[2021-12-11] MEDS: amLODIPine BESYLATE 5 MG TAB PO SCH (20:53)
[2021-12-11] MEDS: ATORVASTATIN 40 MG TAB PO SCH (20:53)
[2021-12-11] MEDS: oxyCODONE HCL IR 5 MG TAB (IMMEDIATE RELEASE) PO PRN (20:54)
[2021-12-11] MEDS: cefTRIAXone SODIUM 2,000 MG in DEXTROSE 5% 50 ML IV SCH (21:23)
--- NOTE | 2021-12-11 21:43 | Hospitalist Progress Note ---
Date of Service December 11, 2021 Assessment & Plan (1) Back pain: (2) Radicular pain of right lower extremity: Plan: Present on admission with worsening back pain Lumbar xray showed no acute bony abnormality is seen involving the lumbar spine. Osteopenia with postoperative and spondylotic change MRI thoracic spine showed e is fluid within the T12-L1 disc space with marked marrow edema in the body of T12 and surrounding paravertebral edema. The appearance is highly suspicious for discitis/osteomyelitis. CT thoracic spine showed endplate sclerosis and irregularity with vacuum phenomenon noted at the T12-L1 disc space level. There is also mild paraverte bral soft tissue swelling at this level. Given the adjacent postoperative changes these findings are nonspecific and could represent chronic degenerative disc disease. ESR mildly elevated at 43, then trending down to 38 CRP and procalcitonin are normal Continue to hold on abx for now, but if blood cx positive or pt develops any fever will start on abx Blood cx no growth Ortho on board Case discussed with ortho Dr. Marcelino who is concerned about any nerve compression Case discussed with Dr. Marcelino that plan for thoracolumbar decompression fusion T11 and L1. Continue pain control Will make NPO after midnight INR 2.6 today, will hold coumadin and give vit K Continue monitor closely Hypertension BP elevated possible due to back pain Continue BP med UTI Denies any urinary symptoms Urine cx outpatient on 12/04 grew ECOLI and strep viridan group Continue Ceftriaxone Afib rate control on metoprolol INR 2.6 today Received Vit K today to get INR below 1.5 for procedure DVT px on Coumadin Code status full code Outpatient cx ulture Growth 10,000 to 100,000 colonies/mL [place] a coliAbnormalAmpC Beta- lactamase producing organism. This gram negative bacilli displays in vitro resistance to multiple antibiotics.10,000 to 100,000 colonies/mL Streptococcus viridans groupAbnormal<10,000 colonies/ml mixed normal sruthi Resulting Agency: Susceptibility Escherichia coliMICROBROTH DILUTIONS AmpicillinResistantAmpicillin/SulbactamIntermediateCefazolinResistantCefepimeSus ceptibleCefoxitinIntermediateCeftriaxoneSusceptibleCiprofloxacinSusceptible1 GentamicinSusceptibleNitrofurantoinSusceptiblePiperacillin TazobactamSusceptibleTrimeth/SulfamethoxazoleSusceptible Admission and Anticipated Discharge Date Admission Date: December 09, 2021 Subjective Pt was seen and examined for follow up of back pain Sitting in chair with no acute distress She said that back pain improves She said when she is standing or walking that she is having a shock like feeling in her leg Denies any chest pain, palpitation, dizziness, fever and SOB Review of Systems Review of Systems: All systems reviewed & are unremarkable except as noted in Subjective Physical Exam Physical Exam: General- No acute distress Head- atraumatic Eyes- PERRL, EOMI, ENT- oropharynx clear Neck- supple, no JVD Lungs- clear to auscultation Heart- regular rhythm; +systolic murmur Abdomen- normal bowel sounds, soft, nontender Extremities- no calf tenderness Neuro- alert, oriented x 3; PERRL, EOMI; no facial palsy; no dysarthria Skin- warm & dry Results & Data Results & Data ([facility]) Vital Signs (Past 12 Hours) Vital Signs Temp Pulse Pulse Resp BP Pulse Ox 12/11/21 19:23 36.8 C 77 16 148/92 H 97 12/11/21 16:07 36.6 C 87 16 164/87 H 93 12/11/21 14:25 69 12/11/21 11:25 36.3 C L 68 16 148/90 H 97
--- NOTE | 2021-12-11 23:07 | Communication Note ---
Date of Service: December 11, 2021 Notified by RN of dark stools in a.m. Patient without abdominal pain complaints. FOBT done at bedside was negative.
[2021-12-11] MEDS ORDERED: PHYTONADIONE 10 MG in DEXTROSE 5% 50 ML IV ONE (23:30)
[2021-12-11] MEDS ORDERED: Nursing to Pharmacy Communication SCH (23:30)
[2021-12-12] MEDS: INSULIN ASPART PER UNIT SC SCH ×4 (00:45→18:02)
[2021-12-12 07:15] LABS: Hematocrit (blood only) 45.1 % (37-47); Hemoglobin 14.2 g/dL (12.0-16.0); Mean Corpuscular Hemoglobin 24.4 pg (25-34); Mean Corpuscular Hgb Conc 31.5 g/dL (32-36); Mean Corpuscular Volume 77.4 fL (80-100); Platelet Count 222 K/uL (130-400); RDW Standard Deviation 71.3 fL (36.4-46.3); Red Blood Count 5.83 M/uL (4.2-5.4); White Blood Count 6.81 K/uL (4.8-10.8)
[2021-12-12 07:27] LABS: INR 1.7 (0.9-1.1); Prothrombin Time 17.2 Seconds (9.0-12.0)
[2021-12-12] MEDS: METOPROLOL SUCC 25MG EXT REL TAB PO SCH (07:36)
[2021-12-12] MEDS: ESCITALOPRAM OXALATE 10 MG TAB PO SCH (07:36)
[2021-12-12] MEDS: FERROUS SULFATE 325 MG TAB PO SCH (07:36)
[2021-12-12] MEDS: CARBIDOPA/LEVODOPA 25-250 1 EA TAB PO SCH ×4 (07:37→21:45)
[2021-12-12] MEDS: predniSONE 20 MG TAB PO SCH (07:37)
[2021-12-12] MEDS: LIDOCAINE 5% 1 PATCH TD SCH (07:38)
[2021-12-12] MEDS: LORazepam 0.5 MG TAB PO SCH ×2 (07:40→21:46)
[2021-12-12] MEDS ORDERED: PHYTONADIONE 2.5 MG in DEXTROSE 5% 50 ML IV ONE (07:45)
[2021-12-12] MEDS ORDERED: fentaNYL citrate 100 MCG/2 ML VIAL ONE (10:13)
--- NOTE | 2021-12-12 10:40 | Hospitalist Progress Note ---
Date of Service December 12, 2021 Assessment & Plan (1) Back pain: (2) Radicular pain of right lower extremity: Plan: Present on admission with worsening back pain Lumbar xray showed no acute bony abnormality is seen involving the lumbar spine. Osteopenia with postoperative and spondylotic change MRI thoracic spine showed e is fluid within the T12-L1 disc space with marked marrow edema in the body of T12 and surrounding paravertebral edema. The appearance is highly suspicious for discitis/osteomyelitis. CT thoracic spine showed endplate sclerosis and irregularity with vacuum phenomenon noted at the T12-L1 disc space level. There is also mild paraverte bral soft tissue swelling at this level. Given the adjacent postoperative changes these findings are nonspecific and could represent chronic degenerative disc disease. ESR mildly elevated at 43, then trending down to 38 CRP and procalcitonin are normal Continue to hold on abx for now, but if blood cx positive or pt develops any fever will start on abx Blood cx no growth Ortho on board Case discussed with ortho Dr. Marcelino who is concerned about any nerve compression Case discussed with Dr. Marcelino that plan for thoracolumbar decompression fusion T11 and L1. Continue pain control Currently NPO for ortho procedure today INR 1.7 today, continue to hold coumadin IV Vit K given this morning, will repeat INR at 11AM Continue monitor closely Hypertension BP elevated possible due to back pain Continue BP med UTI Denies any urinary symptoms Urine cx outpatient on 12/04 grew ECOLI and strep viridan group Continue Ceftriaxone for now Afib rate control on metoprolol INR 1.7 this morning Received Vit K today to get INR below 1.5 for procedure DVT px on Coumadin Code status full code Outpatient cx ulture Growth 10,000 to 100,000 colonies/mL [place] a coliAbnormalAmpC Beta- lactamase producing organism. This gram negative bacilli displays in vitro resistance to multiple antibiotics.10,000 to 100,000 colonies/mL Streptococcus viridans groupAbnormal<10,000 colonies/ml mixed normal sruthi Resulting Agency: Susceptibility Escherichia coliMICROBROTH DILUTIONS AmpicillinResistantAmpicillin/SulbactamIntermediateCefazolinResistantCefepimeSus ceptibleCefoxitinIntermediateCeftriaxoneSusceptibleCiprofloxacinSusceptible1 GentamicinSusceptibleNitrofurantoinSusceptiblePiperacillin TazobactamSusceptibleTrimeth/SulfamethoxazoleSusceptible Admission and Anticipated Discharge Date Admission Date: December 09, 2021 Subjective Pt was seen and examined for follow up of back pain Sitting in chair with no acute distress She said that back pain improves, but continues to have the shock live wave in her leg with standing and walking She is schedule to go to OR today Denies any chest pain, palpitation, dizziness, fever and SOB Review of Systems Review of Systems: All systems reviewed & are unremarkable except as noted in Subjective Physical Exam Physical Exam: General- No acute distress Head- atraumatic Eyes- PERRL, EOMI, ENT- oropharynx clear Neck- supple, no JVD Lungs- clear to auscultation Heart- regular rhythm; +systolic murmur Abdomen- normal bowel sounds, soft, nontender Extremities- no calf tenderness Neuro- alert, oriented x 3; PERRL, EOMI; no facial palsy; no dysarthria Skin- warm & dry Results & Data Results & Data ([facility]) Vital Signs (Past 12 Hours) Vital Signs Temp Pulse Pulse Resp BP Pulse Ox 12/12/21 06:13 36.7 C 87 18 148/85 H 96 12/12/21 03:46 36.6 C 80 18 149/79 H 95 12/11/21 23:06 36.8 C 75 16 159/96 H 97
[2021-12-12 11:43] LABS: INR 1.5 (0.9-1.1); Prothrombin Time 15.5 Seconds (9.0-12.0)
[2021-12-12] MEDS: VALSARTAN 80 MG TAB PO SCH (12:03)
--- NOTE | 2021-12-12 13:03 | History & Physical Bridge Note ---
Date of Service December 12, 2021 History & Physical Bridge Note I have examined the patient, reviewed the History & Physical and in the interval since the performance of the History & Physical I have noted the following changes of clinical significance: no changes noted Decompression fusion T11-L1
[2021-12-12] MEDS ORDERED: BUPIVACAINE/EPINEPHRINE 0.25% 1:200,000 30 ML VIAL ONE (13:24)
[2021-12-12] MEDS ORDERED: HYDROmorphone INJ 1 MG/ML SYRINGE IV PRN ×2 (13:40→17:57)
[2021-12-12] MEDS ORDERED: ONDANSETRON INJ 2 MG/ML 2 ML VIAL IV PRN ×2 (13:40→17:57)
[2021-12-12] MEDS ORDERED: ATROPINE SULFATE 0.1 MG/ML 10ML SYR IV PRN (13:40)
[2021-12-12] MEDS ORDERED: ePHEDrine sulfate 50 MG/ML AMP IV PRN (13:40)
[2021-12-12] MEDS ORDERED: LIDOCAINE 2% 2 ML VIAL/AMP(20MG/ML) INFIL ONE (14:18)
[2021-12-12] MEDS ORDERED: PROPOFOL IV EMULSION 10 MG/ML 20 ML VIAL IV ONE (14:18)
[2021-12-12] MEDS ORDERED: DEXAMETHASONE SOD INJ 4 MG/ML VIAL ONE (14:18)
[2021-12-12] MEDS ORDERED: REMIFENTANIL HCL 1 MG VIAL ONE (14:18)
[2021-12-12] MEDS ORDERED: ceFAZolin 2000MG 2,000 MG/15 ML SYR IV ONE (14:50)
[2021-12-12] MEDS ORDERED: ceFAZolin SPECIAL PROCEDURE STOCK 1 GM ADDVIAL IV ONE (14:52)
[2021-12-12] MEDS ORDERED: ceFAZolin 330 MG/ML 1 GM VIAL ONE (14:58)
[2021-12-12] MEDS ORDERED: FLOSEAL HEMOSTATIC MATRIX 10ML TOP ONE (15:18)
[2021-12-12] MEDS ORDERED: GLYCOPYRROLATE 0.2 MG/ML VIAL ONE (15:36)
[2021-12-12] MEDS ORDERED: NEOSTIGMINE METHYLSULFATE 1 MG/ML 10ML VIAL ONE (15:36)
--- NOTE | 2021-12-12 15:50 | Fluoroscopy Report ---
FL thoracic spine 2V CLINICAL HISTORY: T11-L1 DFI COMPARISON STUDY: 12/08/2021 FLUOROSCOPY TIME: 26 seconds. FLUOROSCOPIC IMAGES: 2 FINDINGS: Interpedicular screw and lia fixation seen transfixing the thoracic spine. IMPRESSION: Status post internal fixation. ACT 112: Negative or not required by law. Electronically signed by: Tyrell Nolasco M.D. 12/12/2021 3:49 PM
--- NOTE | 2021-12-12 15:50 | Operative Report ---
Post Operative Report Pre & Post Diagnosis Operation Date: 12/12/21 12:15 Pre-Op Diagnosis: Thoracic spinal stenosis with myelopathy Post-Op Diagnosis: Same I identified the patient and participated in the time-out.: Yes Procedure Operation Date: 12/12/21 12:15 Actual Procedures #1 decompression T11-T12 T12-L1. #2 posterior spinal fusion T11-L1. #3 p lacement of posterior instrumentation T11-L1. #4 interbody fusion T12-L1. #5 placement peek cage 7 x 22 mm at T12-L1. #6 placement locally harvested morselized autograft in the posterior gutters. #7 placement infuse collagen sponge, master graft in the posterior gutters and I factor interbody space. Surgeon Yehuda Marcelino, Consulting Services Manager Daja Glass Estimated Blood Loss 100 Findings See Below The patient is 5 foot 2 weighing over 89 kg with a BMI in excess of 36. The patient's body habitus did contribute to significant technical difficulty requiring at least 50% increased operative time Specimens None Indications This is a 76-year-old female who presents with marked decline in status and inability to ambulate and evidence of myelopathy. Subsequently underwent urgent decompression fusion. Description of Procedure Patient was met with identified informed consent obtained. Patient was then taken to the operative suite underwent a patient placed in a prone position the [employer] table top [place] frame. All bony prominences well-padded eyes inspected to ensure no external pressure placed upon the. This point the thoracolumbar spine was prepped and draped no sterile fashion. Sharp dissection with assistance of Bovie cardiac form down to and exposing the lamina of T11-T12 and instrumentation at L1-L2. Then performed a complete laminectomy of the [id number] laminectomy of T11 including bilateral medial facetectomies and foraminotomies addressing severe spinal stenosis. Pedicle screws were then placed in T11-T12 bilaterally with assistance of fluoroscopy and a utilized connectors on the L1-L2 portion of the previous lia. By way of a transforaminal approach a complete discectomy of T12 and L1 was performed and the endplates curetted to subcortically bone and a 7 mm peek cage filled I factor was then tapped in position. Proper size rods were then placed locked in final position bilaterally. The transverse processes of T11-T12 L1-L2 were then burred to subcortically bone. Infuse collagen sponge mass graft local autograft was then placed in the posterior gutters. 15 round KAVEH drain inserted. The incision was then closed with 1 Vicryl the fascia 2-0 Vicryl subcutaneously and 4 Monocryl for final skin closure. Steri-Strip sterile dressings placed. Patient awaken taken to PACU stable condition. Please note spinal cord monitoring visualized at the procedure no changes noted. Lastly Daja Glass was present out the entire surgery and while the patient positioning complex portions of the surgery and final skin closure. I attest to the content of the Intraoperative Record and any orders documented therein. Any exceptions are noted below.
[2021-12-12] MEDS ORDERED: LABETALOL HCL IV 5 MG/ML 20ML IV PRN (16:15)
[2021-12-12] MEDS ORDERED: LABETALOL HCL IV 5 MG/ML 20ML IV ONE (16:16)
[2021-12-12] MEDS: fentaNYL citrate 100 MCG/2 ML VIAL IV PRN ×3 (16:20→16:41)
--- NOTE | 2021-12-12 16:55 | Anesthesiology Progress Note ---
Date of Service December 12, 2021 Anesthesia Post Procedure Vital Signs Vital Signs: Temp Pulse Pulse Pulse Resp BP BP 12/12/21 16:50 75 21 156/72 H 12/12/21 16:40 72 19 172/85 H 12/12/21 16:31 78 22 173/85 H 12/12/21 16:21 75 25 H 191/93 H 12/12/21 16:14 36.3 C L 88 18 202/93 H 12/12/21 12:39 36.6 C 68 19 151/101 H 12/12/21 12:12 36.7 C 87 20 165/82 H 12/12/21 07:00 81 12/12/21 06:13 36.7 C 87 18 148/85 H 12/12/21 03:46 36.6 C 80 18 149/79 H 12/11/21 23:06 36.8 C 75 16 159/96 H 12/11/21 22:20 80 12/11/21 19:23 36.8 C 77 16 148/92 H Pulse Ox 12/12/21 16:50 95 12/12/21 16:40 97 12/12/21 16:31 96 12/12/21 16:21 98 12/12/21 16:14 100 12/12/21 12:39 96 12/12/21 12:12 98 12/12/21 07:00 12/12/21 06:13 96 12/12/21 03:46 95 12/11/21 23:06 97 12/11/21 22:20 12/11/21 19:23 97 Pain Intensity Right Buttock: Pain Intensity: 9 Bilateral Lumbar: Pain Intensity: 4 Transfer of Care Handoff Completed per policy Notes Mental Status: alert / awake / arousable Patient Amnestic to Procedure: Yes Nausea / Vomiting: adequately controlled Pain: adequately controlled Airway Patency, RR, SpO2: stable & adequate BP & HR: stable & adequate Hydration State: stable & adequate Anesthetic Complications: no major complications apparent
[2021-12-12] MEDS ORDERED: LORazepam 2 MG/1 ML VIAL IV PRN (17:57)
[2021-12-12] MEDS ORDERED: hydrOXYzine HCl 25 MG TAB PO PRN (17:57)
[2021-12-12] MEDS ORDERED: LORazepam 0.5 MG TAB PO PRN (17:57)
[2021-12-12] MEDS ORDERED: ONDANSETRON 4 MG OD TAB PO PRN (17:57)
[2021-12-12] MEDS ORDERED: traMADol HCL 50 MG TABLET PO PRN (17:57)
[2021-12-12] MEDS ORDERED: diphenhydrAMINE Capsule 25 MG CAP PO PRN (17:57)
[2021-12-12] MEDS ORDERED: SOD PHOSPHATE/SOD BIPHOSPHATE ENEMA 132 ML BTL PR PRN (17:57)
[2021-12-12] MEDS ORDERED: METOCLOPRAMIDE HCL INJ 5 MG/ML 2 ML VIAL IV PRN (17:57)
[2021-12-12] MEDS ORDERED: NALOXONE HCL 0.4 MG/1 ML VIAL/CARP IV PRN (17:57)
[2021-12-12] MEDS ORDERED: ACETAMINOPHEN 500 MG TAB PO PRN (17:57)
[2021-12-12] MEDS ORDERED: ACETAMINOPHEN 1,000 MG/100 ML VIAL IV PRN (17:57)
[2021-12-12] MEDS ORDERED: DO NOT ADMINISTER PNEUMOCOCCAL VACCINE PRN (17:57)
[2021-12-12] MEDS ORDERED: PROMETHAZINE HCL 12.5 MG in SODIUM CHLORIDE 0.9% 50 ML IV PRN (17:57)
[2021-12-12] MEDS ORDERED: DO NOT ADMINISTER FLU VACCINE PRN (17:57)
[2021-12-12] MEDS ORDERED: MAGNESIUM HYDROXIDE SUSP 30 ML UDC PO PRN (17:57)
[2021-12-12] MEDS ORDERED: ALUMINUM/MAGNESIUM SUSP 30 ML UDC PO PRN (17:57)
[2021-12-12] MEDS ORDERED: bisacodyL 10 MG SUPP PR PRN (17:57)
[2021-12-12] MEDS: SODIUM CHLORIDE 0.9% 1000ML 1,000 ML IV SCH (18:40)
[2021-12-12] MEDS: oxyCODONE HCL IR 5 MG TAB (IMMEDIATE RELEASE) PO PRN (19:30)
[2021-12-12] MEDS: cefTRIAXone SODIUM 2,000 MG in DEXTROSE 5% 50 ML IV SCH (19:37)
[2021-12-12] MEDS: DOCUSATE SODIUM/SENNA 50/8.6MG TAB PO SCH (21:45)
[2021-12-12] MEDS: ATORVASTATIN 40 MG TAB PO SCH (21:46)
[2021-12-12] MEDS: amLODIPine BESYLATE 5 MG TAB PO SCH (21:46)
[2021-12-12] MEDS: ceFAZolin 2000MG 2,000 MG/15 ML SYR IV SCH (22:54)
[2021-12-13] MEDS: INSULIN ASPART PER UNIT SC SCH ×5 (00:07→21:49)
[2021-12-13] MEDS ORDERED: Nursing to Pharmacy Communication SCH (00:30)
[2021-12-13] MEDS: SODIUM CHLORIDE 0.9% 1000ML 1,000 ML IV SCH ×2 (04:27→16:18)
[2021-12-13] MEDS: ceFAZolin 2000MG 2,000 MG/15 ML SYR IV SCH (05:11)
[2021-12-13] MEDS: POLYETHYLENE (MIRALAX) 17 GM PACK PO SCH ×4 (06:06→17:34)
[2021-12-13] MEDS: HYDROmorphone INJ 0.5 MG/0.5 ML SYR IV PRN (07:44)
[2021-12-13 08:26] LABS: Basophils # (auto) 0.02 K/uL (0-0.2); Basophils % (auto) 0.2 %; Eosinophils # (auto) 0.01 K/uL (0-0.5); Eosinophils % (auto) 0.1 %; Hematocrit (blood only) 38.2 % (37-47); Hemoglobin 12.1 g/dL (12.0-16.0); Immature Granulocytes # (auto) 0.02 K/uL (0.00-0.02); Immature Granulocytes % (auto) 0.2 %; Lymphocytes # (auto) 1.35 K/uL (1.2-3.4); Lymphocytes % (auto) 14.7 %; Mean Corpuscular Hemoglobin 24.6 pg (25-34); Mean Corpuscular Hgb Conc 31.7 g/dL (32-36); Mean Corpuscular Volume 77.6 fL (80-100); Monocytes # (auto) 1.53 K/uL (0.11-0.59); Monocytes % (auto) 16.6 %; Neutrophils # (auto) 6.27 K/uL (1.4-6.5); Neutrophils % (auto) 68.2 %; Platelet Count 200 K/uL (130-400); RDW Coefficient of Variation 25.4 % (11.5-14.5); RDW Standard Deviation 71.2 fL (36.4-46.3); Red Blood Count 4.92 M/uL (4.2-5.4)
[2021-12-13 08:41] LABS: INR 1.2 (0.9-1.1); Prothrombin Time 12.5 Seconds (9.0-12.0)
[2021-12-13 08:45] LABS: Anisocytosis Present; Echinocytes 1+
[2021-12-13 08:58] LABS: BUN Creatinine Ratio 24.7 (10-20); Calcium 8.3 mg/dl (8.5-10.1); Creatinine Clr Calc Pharmacy 58.3 ml/min; Est GFR (Non-African American) 63.8 ml/min; Potassium 4.2 mmol/L (3.5-5.1)
[2021-12-13] MEDS: LIDOCAINE 5% 1 PATCH TD SCH (09:22)
[2021-12-13] MEDS: VALSARTAN 80 MG TAB PO SCH (10:04)
[2021-12-13] MEDS: ESCITALOPRAM OXALATE 10 MG TAB PO SCH (10:05)
[2021-12-13] MEDS: predniSONE 20 MG TAB PO SCH (10:05)
[2021-12-13] MEDS: CARBIDOPA/LEVODOPA 25-250 1 EA TAB PO SCH ×4 (10:05→21:42)
[2021-12-13] MEDS: FERROUS SULFATE 325 MG TAB PO SCH (10:05)
[2021-12-13] MEDS: METOPROLOL SUCC 25MG EXT REL TAB PO SCH (10:05)
[2021-12-13] MEDS: LORazepam 0.5 MG TAB PO SCH ×2 (10:07→21:49)
--- NOTE | 2021-12-13 10:15 | Orthopedic Progress Note ---
Date of Service December 13, 2021 Assessment & Plan (1) Myelopathy concurrent with and due to spinal stenosis of thoracic region: Plan: This time initiate physical therapy and occupational therapy assess her progress in the next few days. I believe she be a good candidate for rehab placement. Admission and Anticipated Discharge Date Admission Date: December 09, 2021 Subjective Back pain controlled denies any numbness or tingling lower extremities. Physical Exam Physical Exam: On exam she is still in bed. She has functional lower extremities. She appears comfortable. Results & Data ([facility]) Vital Signs (Past 12 Hours) Vital Signs Temp Pulse Pulse Pulse Resp BP Pulse Ox 12/13/21 07:35 36.9 C 84 19 146/86 H 94 12/13/21 03:35 37.1 C 87 20 131/73 93 12/12/21 23:42 36.6 C 99 H 20 99/59 L 94 12/12/21 22:35 74
--- NOTE | 2021-12-13 13:12 | Hospitalist Progress Note ---
Date of Service December 13, 2021 Assessment & Plan (1) Back pain: (2) Radicular pain of right lower extremity: Plan: Present on admission with worsening back pain Lumbar xray showed no acute bony abnormality is seen involving the lumbar spine. Osteopenia with postoperative and spondylotic change MRI thoracic spine showed e is fluid within the T12-L1 disc space with marked marrow edema in the body of T12 and surrounding paravertebral edema. The appearance is highly suspicious for discitis/osteomyelitis. CT thoracic spine showed endplate sclerosis and irregularity with vacuum phenomenon noted at the T12-L1 disc space level. There is also mild paraver tebral soft tissue swelling at this level. Given the adjacent postoperative changes these findings are nonspecific and could represent chronic degenerative disc disease. ESR mildly elevated at 43, then trending down to 38 CRP and procalcitonin are normal Continue to hold on abx for now, but if blood cx positive or pt develops any fever will start on abx Blood cx no growth Ortho-spine consulted Case discussed with Dr. Marcelino who is concerned about any nerve compression Pt is now s/p thoracolumbar decompression fusion T11 and L1 (12/12), w/ Dr. Marcelino Continue pain control INR 1.7 on 12/13, now 1.2, continue to hold coumadin IV Vit K given yesterday (12/12),prior to surgery Continue monitor closely Hypertension BP was elevated possible due to back pain seems to be at goal now Continue BP med UTI Denies any urinary symptoms Urine cx outpatient on 12/04 grew E.coli and strep viridan group Continue Ceftriaxone for now Afib rate control on metoprolol INR 1.2 this morning Received Vit K yesterday to get INR below 1.5 for procedure Discuss w/ ortho when to resume coumadin DVT px SCDs , Coumadin on hold Code status full code Outpatient cx ulture Growth 10,000 to 100,000 colonies/mL [place] a coliAbnormalAmpC Beta- lactamase producing organism. This gram negative bacilli displays in vitro resistance to multiple antibiotics.10,000 to 100,000 colonies/mL Streptococcus viridans groupAbnormal<10,000 colonies/ml mixed normal sruthi Resulting Agency: Susceptibility Escherichia coliMICROBROTH DILUTIONS AmpicillinResistantAmpicillin/SulbactamIntermediateCefazolinResistantCefepimeSus ceptibleCefoxitinIntermediateCeftriaxoneSusceptibleCiprofloxacinSusceptible1 GentamicinSusceptibleNitrofurantoinSusceptiblePiperacillin TazobactamSusceptibleTrimeth/SulfamethoxazoleSusceptible Admission and Anticipated Discharge Date Admission Date: December 09, 2021 Subjective Pt was seen and examined for follow up of back pain, now post op s/p thoracic spinal surgery yesterday w/ Dr. Marcelino Pt is laying in bed in no acute distress Reports that back pain is much improved Denies any chest pain, palpitation, shortness of breath, dizziness, fever, or chills Also denies any abdominal pain, nausea vomiting Review of Systems Review of Systems: All systems reviewed & are unremarkable except as noted in Subjective Physical Exam Physical Exam: General- No acute distress Head- atraumatic Eyes- PERRL, EOMI, ENT- oropharynx clear Neck- supple, no JVD Lungs- clear to auscultation Heart- regular rhythm; +systolic murmur Abdomen- normal bowel sounds, soft, nontender Extremities- no calf tenderness Neuro- alert, oriented x 3; PERRL, EOMI; no facial palsy; no dysarthria Skin- warm & dry Results & Data Results & Data ([facility]) Vital Signs (Past 12 Hours) Vital Signs Temp Pulse Resp BP Pulse Ox 12/13/21 11:36 37.0 C 65 19 138/80 96 12/13/21 07:35 36.9 C 84 19 146/86 H 94 12/13/21 03:35 37.1 C 87 20 131/73 93 Laboratory Results 12/13/21 12/13/21 12/13/21 Range/Units 07:51 07:51 07:51 WBC 9.20 (4.8-10.8) K/uL RBC 4.92 (4.2-5.4) M/uL Hgb 12.1 (12.0-16.0) g/dL Hct 38.2 (37-47) % MCV 77.6 L (80-100) fL MCH 24.6 L (25-34) pg MCHC 31.7 L (32-36) g/dL RDW Std Deviation 71.2 H (36.4-46.3) fL RDW Coeff of Ratna 25.4 H (11.5-14.5) % Plt Count 200 (130-400) K/uL Immature Gran % (Auto) 0.2 % Neut % (Auto) 68.2 % Lymph % (Auto) 14.7 % [place] % (Auto) 16.6 % Eos % (Auto) 0.1 % Baso % (Auto) 0.2 % Neut # (Auto) 6.27 (1.4-6.5) K/uL Lymph # (Auto) 1.35 (1.2-3.4) K/uL [place] # (Auto) 1.53 H (0.11-0.59) K/uL Eos # (Auto) 0.01 (0-0.5) K/uL Baso # (Auto) 0.02 (0-0.2) K/uL Immature Gran # (Auto) 0.02 (0.00-0.02) K/uL Anisocytosis Present Echinocytes 1+ PT 12.5 H (9.0-12.0) Seconds INR 1.2 H (0.9-1.1) Sodium 137 (136-145) mmol/L Potassium 4.2 (3.5-5.1) mmol/L Chloride 105 (98-107) mmol/L Carbon Dioxide 26 (21-32) mmol/L Anion Gap 6 (3-11) BUN 22 (6-23) mg/dl Creatinine 0.89 (0.6-1.2) mg/dl Est Cr Clr Drug Dosing 58.3 ml/min Est GFR ( Amer) 74.0 ml/min Est GFR (Non-Af Amer) 63.8 ml/min BUN/Creatinine Ratio 24.7 H (10-20) Glucose 102 H (70-99(Fasting)) mg/dl POC Glucose (70-99) mg/dl Calcium 8.3 L (8.5-10.1) mg/dl 12/12/21 12/12/21 Range/Units 22:23 16:10 WBC (4.8-10.8) K/uL RBC (4.2-5.4) M/uL Hgb (12.0-16.0) g/dL Hct (37-47) % MCV (80-100) fL MCH (25-34) pg MCHC (32-36) g/dL RDW Std Deviation (36.4-46.3) fL RDW Coeff of Ratna (11.5-14.5) % Plt Count (130-400) K/uL Immature Gran % (Auto) % Neut % (Auto) % Lymph % (Auto) % [place] % (Auto) % Eos % (Auto) % Baso % (Auto) % Neut # (Auto) (1.4-6.5) K/uL Lymph # (Auto) (1.2-3.4) K/uL [place] # (Auto) (0.11-0.59) K/uL Eos # (Auto) (0-0.5) K/uL Baso # (Auto) (0-0.2) K/uL Immature Gran # (Auto) (0.00-0.02) K/uL Anisocytosis Echinocytes PT (9.0-12.0) Seconds INR (0.9-1.1) Sodium (136-145) mmol/L Potassium (3.5-5.1) mmol/L Chloride (98-107) mmol/L Carbon Dioxide (21-32) mmol/L Anion Gap (3-11) BUN (6-23) mg/dl Creatinine (0.6-1.2) mg/dl Est Cr Clr Drug Dosing ml/min Est GFR ( Amer) ml/min Est GFR (Non-Af Amer) ml/min BUN/Creatinine Ratio (10-20) Glucose (70-99(Fasting)) mg/dl POC Glucose 127 H 110 H (70-99) mg/dl Calcium (8.5-10.1) mg/dl Medications Administered Current Inpatient Medications Acetaminophen (Acetaminophen 325 Mg Tab) 650 mg PO Q4H PRN PRN Reason: FEVER/PAIN Stop: 01/06/22 01:46 Last Admin: 12/10/21 22:29 Dose: 650 mg Documented by: Al Hydrox/Mg Hydrox/Simethicone (Aluminum/Magnesium Susp 30 Ml Udc) 30 ml PO Q6H PRN PRN Reason: Dyspepsia Stop: 01/11/22 17:56 Amlodipine Besylate (Amlodipine Besylate 5 Mg Tab) 5 mg PO HS CRISTAL Stop: 01/07/22 20:59 Last Admin: 12/12/21 21:46 Dose: 5 mg Documented by: Atorvastatin Calcium (Atorvastatin 40 Mg Tab) 80 mg PO HS CRISTAL Stop: 01/06/22 20:59 Last Admin: 12/12/21 21:46 Dose: 80 mg Documented by: Baclofen (Baclofen 10 Mg Tab) 10 mg PO HS PRN PRN Reason: Muscle Spasm Stop: 01/06/22 01:46 Last Admin: 12/07/21 22:59 Dose: 10 mg Documented by: Bisacodyl (Bisacodyl 10 Mg Supp) 10 mg IA DAILY PRN PRN Reason: Constipation Stop: 01/11/22 17:56 Carbidopa/Levodopa (Carbidopa/Levodopa 25-250 1 Ea Tab) 1 tab PO QID@0900,1200,1600,2100 CRISTAL Stop: 01/06/22 08:59 Last Admin: 12/13/21 10:05 Dose: 1 tab Documented by: Dextrose (Dextrose 50% 50 Ml Syringe) 25 - 50 ml IV UD PRN; Protocol PRN Reason: Hypoglycemia Protocol Stop: 01/06/22 01:46 Diphenhydramine HCl (Diphenhydramine Capsule 25 Mg Cap) 25 mg PO Q6H PRN PRN Reason: Allergic Rhinitis/Insomnia Stop: 01/11/22 17:56 Docusate Sodium (Docusate Sodium 100 Mg Cap) 200 mg PO DAILY PRN PRN Reason: Constipation Stop: 01/06/22 01:46 Last Admin: 12/10/21 13:50 Dose: 200 mg Documented by: Escitalopram Oxalate (Escitalopram Oxalate 10 Mg Tab) 10 mg PO QAM CRISTAL Stop: 01/06/22 08:59 Last Admin: 12/13/21 10:05 Dose: 10 mg Documented by: Famotidine (Famotidine 20 Mg Tab) 20 mg PO Q12H PRN PRN Reason: Dyspepsia Stop: 01/11/22 17:56 Ferrous Sulfate (Ferrous Sulfate 325 Mg Tab) 325 mg PO DAILY@0800 [facility] Stop: 01/06/22 07:59 Last Admin: 12/13/21 10:05 Dose: 325 mg Documented by: Glucagon (Glucagon For Inj 1 Mg Vial) 1 mg SQ UD PRN; Protocol PRN Reason: Hypoglycemia Protocol Stop: 01/06/22 01:46 Glucose (Glucose 10 Tabs/Tube) 4 - 8 tabs PO UD PRN; Protocol PRN Reason: Hypoglycemia Protocol Stop: 01/06/22 01:46 Glucose (Glucose 40% Gel 15 Gm Tube) 15 - 30 gm PO UD PRN; Protocol PRN Reason: Hypoglycemia Protocol Stop: 01/06/22 01:46 Hydralazine HCl (Hydralazine Hcl 20 Mg/Ml Vial) 5 mg IV Q6H PRN PRN Reason: SBP above 170 Stop: 01/07/22 11:44 Last Admin: 12/08/21 15:20 Dose: 5 mg Documented by: Hydromorphone HCl (Hydromorphone Inj 0.5 Mg/0.5 Ml Syr) 0.5 mg IV Q3H PRN PRN Reason: MODERATE Pain (Scale 4,5,6) & Pre PT Stop: 12/26/21 17:56 Last Admin: 12/13/21 07:44 Dose: 0.5 mg Documented by: Hydromorphone HCl (Hydromorphone Inj 1 Mg/Ml Syringe) 1 mg IV Q3H PRN PRN Reason: SEVERE Pain (Scale 7,8,9,10) Stop: 12/26/21 17:56 Hydroxyzine HCl (Hydroxyzine Hcl 25 Mg Tab) 25 mg PO Q8H PRN PRN Reason: Anxiety Stop: 01/11/22 17:56 Ceftriaxone Sodium 2,000 mg/ (Dextrose) 70 mls @ 140 mls/hr IV Q24H CRISTAL; Protocol Stop: 12/14/21 18:59 Last Infusion: 12/12/21 21:49 Dose: Infused Documented by: Acetaminophen (Ofirmev) 1,000 mg in 100 mls @ 400 mls/hr IV Q8H PRN PRN Reason: Pain Rating 1-3 & Pre PT Stop: 12/15/21 17:56 Sodium Chloride (Nss 1000ml) 1,000 mls @ 100 mls/hr IV .Q10H CRISTAL Stop: 01/11/22 17:56 Last Admin: 12/13/21 04:27 Dose: 100 mls/hr Documented by: Promethazine HCl 12.5 mg/ (Sodium Chloride) 50.5 mls @ 202 mls/hr IV Q6H PRN PRN Reason: Nausea &/or Vomiting Stop: 01/11/22 17:56 Influenza Virus Vaccine Quadrival (Do Not Administer Flu Vaccine) 1 ea N/A PRN PRN PRN Reason: Notification Stop: 01/11/22 17:56 Insulin Aspart (Insulin Aspart Per Unit) 0 units SC [facility] Stop: 01/12/22 07:29 Last Admin: 12/13/21 09:21 Dose: Not Given Documented by: Lidocaine (Lidocaine 5% 1 Patch) 1 patch TD [facility] Stop: 01/09/22 08:59 Last Admin: 12/13/21 09:22 Dose: Not Given Documented by: Lorazepam (Lorazepam 0.5 Mg Tab) 0.5 mg PO [facility] [address] Stop: 01/06/22 01:46 Last Admin: 12/13/21 10:07 Dose: Not Given Documented by: Lorazepam (Lorazepam 0.5 Mg Tab) 0.5 mg PO Q8H PRN PRN Reason: Sedation/Anxiety Stop: 01/11/22 17:56 Lorazepam (Lorazepam 2 Mg/1 Ml Vial) 0.5 mg IV Q8H PRN PRN Reason: Sedation/Anxiety Stop: 01/11/22 17:56 Magnesium Hydroxide (Magnesium Hydroxide Susp 30 Ml Udc) 30 ml PO Q24H PRN PRN Reason: Constipation Stop: 01/11/22 17:56 Metoclopramide HCl (Metoclopramide Hcl Inj 5 Mg/Ml 2 Ml Vial) 10 mg IV Q6H PRN PRN Reason: Nausea &/or Vomiting Stop: 01/11/22 17:56 Metoprolol Succinate (Metoprolol Succ 25mg Ext Rel Tab) 25 mg PO [facility] Stop: 01/06/22 08:59 Last Admin: 12/13/21 10:05 Dose: 25 mg Documented by: Miconazole Nitrate (Miconazole Nitrate Powder 43 Gm) 1 appln EXT PRN PRN PRN Reason: Affected Skin Folds Stop: 01/06/22 02:00 Last Admin: 12/07/21 21:00 Dose: 1 appln Documented by: Miscellaneous (Carbohydrates For Hypoglycemia ) 15 - 30 gm PO UD PRN PRN Reason: Hypoglycemia Protocol Stop: 01/06/22 01:46 Miscellaneous (Remove Lidoderm Patch) 1 ea N/A DAILY@2100 [facility] Stop: 01/09/22 20:59 Last Admin: 12/12/21 21:46 Dose: 1 ea Documented by: Naloxone HCl (Naloxone Hcl 0.4 Mg/1 Ml Vial/Carp) 0.1 mg IV Q5M PRN PRN Reason: Oversedation/Resp depression Stop: 01/11/22 17:56 Ondansetron HCl (Ondansetron Inj 2 Mg/Ml 2 Ml Vial) 4 mg IV Q6H PRN PRN Reason: Nausea &/or Vomiting Stop: 01/11/22 17:56 Ondansetron HCl (Ondansetron 4 Mg Od Tab) 4 mg PO Q6H PRN PRN Reason: Nausea Stop: 01/11/22 17:56 Oxycodone HCl (Oxycodone Hcl Ir 5 Mg Tab (Immediate Release)) 5 - 10 mg PO Q4H PRN PRN Reason: Pain & Pre PT Stop: 12/26/21 17:56 Last Admin: 12/12/21 19:30 Dose: 10 mg Documented by: Pneumococcal Polyvalent Vaccine (Do Not Administer Pneumococcal Vaccine) 1 ea N/A PRN PRN PRN Reason: Notification Stop: 01/11/22 17:56 Polyethylene Glycol (Polyethylene (Miralax) 17 Gm Pack) 17 gm PO DAILY PRN PRN Reason: Constipation Stop: 01/06/22 01:46 Polyethylene Glycol (Polyethylene (Miralax) 17 Gm Pack) 17 gm PO Q6 [facility] Stop: 01/12/22 05:59 Last Admin: 12/13/21 06:06 Dose: 17 gm Documented by: Prednisone (Prednisone 20 Mg Tab) 20 mg PO DAILY C[facility]STAL Stop: 01/07/22 08:59 Last Admin: 12/13/21 10:05 Dose: 20 mg Documented by: Senna/Docusate Sodium (Docusate Sodium/Senna 50/8.6mg Tab) 2 tab PO HS CRISTAL Stop: 01/11/22 20:59 Last Admin: 12/12/21 21:45 Dose: 2 tab Documented by: Sodium Biphosphate/Sodium Phosphate (Sod Phosphate/Sod Biphosphate Enema 132 Ml Btl) 132 ml IA ONE PRN PRN Reason: Constipation Stop: 01/11/22 17:56 Tramadol HCl (Tramadol Hcl 50 Mg Tablet) 50 - 100 mg PO Q4H PRN PRN Reason: Moderate-Severe pain & Pre PT Stop: 01/11/22 17:56 Valsartan (Valsartan 80 Mg Tab) 80 mg PO QDL CRISTAL Stop: 01/06/22 02:24 Last Admin: 12/13/21 10:04 Dose: 80 mg Documented by:
[2021-12-13] MEDS: oxyCODONE HCL IR 5 MG TAB (IMMEDIATE RELEASE) PO PRN (13:31)
--- NOTE | 2021-12-13 15:13 | XRay Report ---
XR chest 1V portable HISTORY: s/p poss. aspiration episode COMPARISON: Chest 04/23/2021. FINDINGS: No pneumothorax. No pleural effusions. The cardiac silhouette remains mildly enlarged. [place] calcified granuloma within the left midlung zone remains unchanged. Linear densities within the left lower lobe persist and favor scarring or subsegmental atelectasis. Otherwise, no new focal lung consolidations to suggest pneumonia. No evidence for pulmonary edema. Thoracolumbar spinal fusion yanick dware is noted. IMPRESSION: No significant change compared to the prior study. No acute process. ACT 112: Negative or not required by law. Electronically signed by: Carlos Vera M.D. 12/13/2021 3:12 PM
[2021-12-13] MEDS: ATORVASTATIN 40 MG TAB PO SCH (21:42)
[2021-12-13] MEDS: amLODIPine BESYLATE 5 MG TAB PO SCH (21:42)
[2021-12-13] MEDS: DOCUSATE SODIUM/SENNA 50/8.6MG TAB PO SCH (21:43)
[2021-12-13] MEDS: cefTRIAXone SODIUM 2,000 MG in DEXTROSE 5% 50 ML IV SCH (21:56)
[2021-12-14] MEDS: POLYETHYLENE (MIRALAX) 17 GM PACK PO SCH ×5 (00:34→23:43)
[2021-12-14] MEDS: HYDROmorphone INJ 0.5 MG/0.5 ML SYR IV PRN (00:55)
[2021-12-14 06:44] LABS: Hemoglobin 11.9 g/dL (12.0-16.0); Mean Corpuscular Hemoglobin 24.2 pg (25-34); Mean Corpuscular Hgb Conc 31.3 g/dL (32-36); Mean Corpuscular Volume 77.4 fL (80-100); Platelet Count 180 K/uL (130-400); RDW Coefficient of Variation 25.4 % (11.5-14.5); RDW Standard Deviation 70.2 fL (36.4-46.3); Red Blood Count 4.91 M/uL (4.2-5.4)
[2021-12-14 06:53] LABS: INR 1.1 (0.9-1.1); Prothrombin Time 12.1 Seconds (9.0-12.0)
[2021-12-14 07:03] LABS: BUN Creatinine Ratio 26.2 (10-20); Calcium 8.4 mg/dl (8.5-10.1); Creatinine Clr Calc Pharmacy 62.4 ml/min; Est GFR (African American) 79.4 ml/min; Est GFR (Non-African American) 68.5 ml/min; Magnesium 1.8 mg/dl (1.7-2.4); Phosphorus 2.4 mg/dl (2.5-4.9); Potassium 3.8 mmol/L (3.5-5.1)
[2021-12-14] MEDS: METOPROLOL SUCC 25MG EXT REL TAB PO SCH (08:01)
[2021-12-14] MEDS: LIDOCAINE 5% 1 PATCH TD SCH (08:01)
[2021-12-14] MEDS: FERROUS SULFATE 325 MG TAB PO SCH (08:01)
[2021-12-14] MEDS: ESCITALOPRAM OXALATE 10 MG TAB PO SCH (08:01)
[2021-12-14] MEDS: predniSONE 20 MG TAB PO SCH (08:01)
[2021-12-14] MEDS: LORazepam 0.5 MG TAB PO SCH ×2 (08:01→21:36)
[2021-12-14] MEDS: CARBIDOPA/LEVODOPA 25-250 1 EA TAB PO SCH ×4 (08:01→21:27)
[2021-12-14] MEDS: INSULIN ASPART PER UNIT SC SCH ×4 (08:11→21:35)
--- NOTE | 2021-12-14 09:47 | Orthopedic Progress Note ---
Date of Service December 14, 2021 Assessment & Plan (1) Myelopathy concurrent with and due to spinal stenosis of thoracic region: Plan: Patient will continue physical therapy today. Continue with pain control. Maintain KAVEH drain. DVT prophylaxis is in the form of teds and SCDs. I believe she is a candidate for SNF. This is currently being coordinated. Hopefully we can discharge her to rehab within the next couple of days Admission and Anticipated Discharge Date Admission Date: December 09, 2021 Subjective Patient is postoperative day 2 T11 - L1 decompression instrumented fusion. She is doing well. Pain is controlled. KAVEH drain output last shift was 60 cc. H&H is morning are 11.9 and 38.0 respectively. Yesterday in physical therapy she was able to ambulate roughly 4 feet. Review of Systems Review of Systems: All systems reviewed & are unremarkable except as noted in HPI & below Physical Exam Physical Exam: She is lying in bed in no acute distress Alert and orient x3 Incision is clean dry and intact with functioning KAVEH drain Calf soft nontender bilaterally Strength unchanged bilateral lower extremities Results & Data ([facility]) Vital Signs (Past 12 Hours) Vital Signs Temp Pulse Pulse Resp BP Pulse Ox 12/14/21 08:00 37.1 C 63 19 128/74 98 12/14/21 04:00 37.1 C 77 18 142/75 H 93 12/13/21 23:56 36.6 C 72 18 136/79 95
[2021-12-14] MEDS: VALSARTAN 80 MG TAB PO SCH (11:21)
--- NOTE | 2021-12-14 12:19 | Hospitalist Progress Note ---
Date of Service December 14, 2021 Assessment & Plan (1) Back pain: (2) Radicular pain of right lower extremity: Plan: Present on admission with worsening back pain Lumbar xray showed no acute bony abnormality is seen involving the lumbar spine. Osteopenia with postoperative and spondylotic change MRI thoracic spine showed e is fluid within the T12-L1 disc space with marked marrow edema in the body of T12 and surrounding paravertebral edema. The appearance is highly suspicious for discitis/osteomyelitis. CT thoracic spine showed endplate sclerosis and irregularity with vacuum phenomenon noted at the T12-L1 disc space level. There is also mild paraver tebral soft tissue swelling at this level. Given the adjacent postoperative changes these findings are nonspecific and could represent chronic degenerative disc disease. ESR mildly elevated at 43, then trending down to 38 CRP and procalcitonin are normal Continue to hold on abx for now, but if blood cx positive or pt develops any fever will start on abx Blood cx no growth Ortho-spine consulted Case discussed with Dr. Marcelino who is concerned about any nerve compression Pt is now s/p thoracolumbar decompression fusion T11 and L1 (12/12), w/ Dr. Marcelino Tolerated procedure well Continue pain control INR 1.7 on 12/12, 1.2 (12/13), 1.1 (12/14) continue to hold coumadin IV Vit K given (12/12),prior to surgery Plan to resume coumadine tmrw (12/15) Continue monitor closely Hypertension BP was elevated possible due to back pain seems to be at goal now Continue BP med UTI Denies any urinary symptoms Urine cx outpatient on 12/04 grew E.coli and strep viridan group Continued Ceftriaxone, will finish on 12/14 Afib rate control on metoprolol INR 1.1 this morning Received Vit K to get INR below 1.5 for procedure Discussed w/ ortho when to resume coumadin - plan to resume tmrw (12/15) DVT px SCDs , Coumadin on hold , resume tmrw (12/15) Code status full code Outpatient cx ulture Growth 10,000 to 100,000 colonies/mL [place] a coliAbnormalAmpC Beta- lactamase producing organism. This gram negative bacilli displays in vitro resistance to multiple antibiotics.10,000 to 100,000 colonies/mL Streptococcus viridans groupAbnormal<10,000 colonies/ml mixed normal sruthi Resulting Agency: Susceptibility Escherichia coliMICROBROTH DILUTIONS AmpicillinResistantAmpicillin/SulbactamIntermediateCefazo linResistantCefepimeSusceptibleCefoxitinIntermediateCeftriaxoneSusceptibleCiprof jarjhtvMwohbwadxxg8PybuqbfbenLbqmggfvmwdIcinlrcjvqzwlmZkevttzonzhNztndbwohxdo TazobactamSusceptibleTrimeth/SulfamethoxazoleSusceptible Admission and Anticipated Discharge Date Admission Date: December 09, 2021 Subjective Pt was seen and examined for follow up of back pain, now post op s/p thoracic spinal surgery w/ Dr. Marcelino Plan to resume coumadine tmrw Pt is sitting up in chair, in no acute distress Reports that back pain is much improved Denies any chest pain, palpitation, shortness of breath, dizziness, fever, or chills Also denies any abdominal pain, nausea vomiting Had episode yesterday when she got a food "stuck", seen by speech tyshawn andrea in chart Review of Systems Review of Systems: All systems reviewed & are unremarkable except as noted in Subjective Physical Exam Physical Exam: General- No acute distress Head- atraumatic Eyes- PERRL, EOMI, ENT- oropharynx clear Neck- supple, no JVD Lungs- clear to auscultation Heart- regular rhythm; +systolic murmur Abdomen- normal bowel sounds, soft, nontender Extremities- no calf tenderness Neuro- alert, oriented x 3; PERRL, EOMI; no facial palsy; no dysarthria Skin- warm & dry Results & Data Results & Data ([facility]) Vital Signs (Past 12 Hours) Vital Signs Temp Pulse Pulse Resp BP Pulse Ox 12/14/21 11:00 36.7 C 79 18 133/73 96 12/14/21 08:00 37.1 C 63 19 128/74 98 12/14/21 04:00 37.1 C 77 18 142/75 H 93 Laboratory Results 12/14/21 12/14/21 12/14/21 Range/Units 11:14 07:34 05:59 WBC (4.8-10.8) K/uL RBC (4.2-5.4) M/uL Hgb (12.0-16.0) g/dL Hct (37-47) % MCV (80-100) fL MCH (25-34) pg MCHC (32-36) g/dL RDW Std Deviation (36.4-46.3) fL RDW Coeff of Ratna (11.5-14.5) % Plt Count (130-400) K/uL PT (9.0-12.0) Seconds INR (0.9-1.1) Sodium 137 (136-145) mmol/L Potassium 3.8 (3.5-5.1) mmol/L Chloride 105 (98-107) mmol/L Carbon Dioxide 25 (21-32) mmol/L Anion Gap 7 (3-11) BUN 22 (6-23) mg/dl Creatinine 0.84 (0.6-1.2) mg/dl Est Cr Clr Drug Dosing 62.4 ml/min Est GFR ( Amer) 79.4 ml/min Est GFR (Non-Af Amer) 68.5 ml/min BUN/Creatinine Ratio 26.2 H (10-20) Glucose 90 (70-99(Fasting)) mg/dl POC Glucose 177 H 104 H (70-99) mg/dl Calcium 8.4 L (8.5-10.1) mg/dl Phosphorus 2.4 L (2.5-4.9) mg/dl Magnesium 1.8 (1.7-2.4) mg/dl Crossmatch 12/14/21 12/14/21 12/13/21 Range/Units 05:59 05:59 20:20 WBC 13.10 H (4.8-10.8) K/uL RBC 4.91 (4.2-5.4) M/uL Hgb 11.9 L (12.0-16.0) g/dL Hct 38.0 (37-47) % MCV 77.4 L (80-100) fL MCH 24.2 L (25-34) pg MCHC 31.3 L (32-36) g/dL RDW Std Deviation 70.2 H (36.4-46.3) fL RDW Coeff of Ratna 25.4 H (11.5-14.5) % Plt Count 180 (130-400) K/uL PT 12.1 H (9.0-12.0) Seconds INR 1.1 (0.9-1.1) Sodium (136-145) mmol/L Potassium (3.5-5.1) mmol/L Chloride (98-107) mmol/L Carbon Dioxide (21-32) mmol/L Anion Gap (3-11) BUN (6-23) mg/dl Creatinine (0.6-1.2) mg/dl Est Cr Clr Drug Dosing ml/min Est GFR ( Amer) ml/min Est GFR (Non-Af Amer) ml/min BUN/Creatinine Ratio (10-20) Glucose (70-99(Fasting)) mg/dl POC Glucose 146 H (70-99) mg/dl Calcium (8.5-10.1) mg/dl Phosphorus (2.5-4.9) mg/dl Magnesium (1.7-2.4) mg/dl Crossmatch 12/13/21 12/13/21 12/11/21 Range/Units 16:31 13:14 19:29 WBC (4.8-10.8) K/uL RBC (4.2-5.4) M/uL Hgb (12.0-16.0) g/dL Hct (37-47) % MCV (80-100) fL MCH (25-34) pg MCHC (32-36) g/dL RDW Std Deviation (36.4-46.3) fL RDW Coeff of Ratna (11.5-14.5) % Plt Count (130-400) K/uL PT (9.0-12.0) Seconds INR (0.9-1.1) Sodium (136-145) mmol/L Potassium (3.5-5.1) mmol/L Chloride (98-107) mmol/L Carbon Dioxide (21-32) mmol/L Anion Gap (3-11) BUN (6-23) mg/dl Creatinine (0.6-1.2) mg/dl Est Cr Clr Drug Dosing ml/min Est GFR ( Amer) ml/min Est GFR (Non-Af Amer) ml/min BUN/Creatinine Ratio (10-20) Glucose (70-99(Fasting)) mg/dl POC Glucose 129 H 161 H (70-99) mg/dl Calcium (8.5-10.1) mg/dl Phosphorus (2.5-4.9) mg/dl Magnesium (1.7-2.4) mg/dl Crossmatch See Detail Medications Administered Current Inpatient Medications Acetaminophen (Acetaminophen 325 Mg Tab) 650 mg PO Q4H PRN PRN Reason: FEVER/PAIN Stop: 01/06/22 01:46 Last Admin: 12/10/21 22:29 Dose: 650 mg Documented by: Al Hydrox/Mg Hydrox/Simethicone (Aluminum/Magnesium Susp 30 Ml Udc) 30 ml PO Q6H PRN PRN Reason: Dyspepsia Stop: 01/11/22 17:56 Amlodipine Besylate (Amlodipine Besylate 5 Mg Tab) 5 mg PO HS [facility]STAL Stop: 01/07/22 20:59 Last Admin: 12/13/21 21:42 Dose: 5 mg Documented by: Atorvastatin Calcium (Atorvastatin 40 Mg Tab) 80 mg PO HS CRISTAL Stop: 01/06/22 20:59 Last Admin: 12/13/21 21:42 Dose: 80 mg Documented by: Baclofen (Baclofen 10 Mg Tab) 10 mg PO HS PRN PRN Reason: Muscle Spasm Stop: 01/06/22 01:46 Last Admin: 12/07/21 22:59 Dose: 10 mg Documented by: Bisacodyl (Bisacodyl 10 Mg Supp) 10 mg [place] DAILY PRN PRN Reason: Constipation Stop: 01/11/22 17:56 Carbidopa/Levodopa (Carbidopa/Levodopa 25-250 1 Ea Tab) 1 tab PO QID@0900,1200,1600,2100 [facility] Stop: 01/06/22 08:59 Last Admin: 12/14/21 11:21 Dose: 1 tab Documented by: Dextrose (Dextrose 50% 50 Ml Syringe) 25 - 50 ml IV UD PRN; Protocol PRN Reason: Hypoglycemia Protocol Stop: 01/06/22 01:46 Diphenhydramine HCl (Diphenhydramine Capsule 25 Mg Cap) 25 mg PO Q6H PRN PRN Reason: Allergic Rhinitis/Insomnia Stop: 01/11/22 17:56 Docusate Sodium (Docusate Sodium 100 Mg Cap) 200 mg PO DAILY PRN PRN Reason: Constipation Stop: 01/06/22 01:46 Last Admin: 12/10/21 13:50 Dose: 200 mg Documented by: Escitalopram Oxalate (Escitalopram Oxalate 10 Mg Tab) 10 mg PO QAM CRISTAL Stop: 01/06/22 08:59 Last Admin: 12/14/21 08:01 Dose: 10 mg Documented by: Famotidine (Famotidine 20 Mg Tab) 20 mg PO Q12H PRN PRN Reason: Dyspepsia Stop: 01/11/22 17:56 Ferrous Sulfate (Ferrous Sulfate 325 Mg Tab) 325 mg PO DAILY@0800 [facility] Stop: 01/06/22 07:59 Last Admin: 12/14/21 08:01 Dose: 325 mg Documented by: Glucagon (Glucagon For Inj 1 Mg Vial) 1 mg SQ UD PRN; Protocol PRN Reason: Hypoglycemia Protocol Stop: 01/06/22 01:46 Glucose (Glucose 10 Tabs/Tube) 4 - 8 tabs PO UD PRN; Protocol PRN Reason: Hypoglycemia Protocol Stop: 01/06/22 01:46 Glucose (Glucose 40% Gel 15 Gm Tube) 15 - 30 gm PO UD PRN; Protocol PRN Reason: Hypoglycemia Protocol Stop: 01/06/22 01:46 Hydralazine HCl (Hydralazine Hcl 20 Mg/Ml Vial) 5 mg IV Q6H PRN PRN Reason: SBP above 170 Stop: 01/07/22 11:44 Last Admin: 12/08/21 15:20 Dose: 5 mg Documented by: Hydromorphone HCl (Hydromorphone Inj 0.5 Mg/0.5 Ml Syr) 0.5 mg IV Q3H PRN PRN Reason: MODERATE Pain (Scale 4,5,6) & Pre PT Stop: 12/26/21 17:56 Last Admin: 12/14/21 00:55 Dose: 0.5 mg Documented by: Hydromorphone HCl (Hydromorphone Inj 1 Mg/Ml Syringe) 1 mg IV Q3H PRN PRN Reason: SEVERE Pain (Scale 7,8,9,10) Stop: 12/26/21 17:56 Hydroxyzine HCl (Hydroxyzine Hcl 25 Mg Tab) 25 mg PO Q8H PRN PRN Reason: Anxiety Stop: 01/11/22 17:56 Ceftriaxone Sodium 2,000 mg/ (Dextrose) 70 mls @ 140 mls/hr IV Q24H [facility]; Protocol Stop: 12/14/21 18:59 Last Infusion: 12/13/21 22:42 Dose: Infused Documented by: Acetaminophen (Ofirmev) 1,000 mg in 100 mls @ 400 mls/hr IV Q8H PRN PRN Reason: Pain Rating 1-3 & Pre PT Stop: 12/15/21 17:56 Promethazine HCl 12.5 mg/ (Sodium Chloride) 50.5 mls @ 202 mls/hr IV Q6H PRN PRN Reason: Nausea &/or Vomiting Stop: 01/11/22 17:56 Influenza Virus Vaccine Quadrival (Do Not Administer Flu Vaccine) 1 ea N/A PRN PRN PRN Reason: Notification Stop: 01/11/22 17:56 Insulin Aspart (Insulin Aspart Per Unit) 0 units SC [facility] Stop: 01/12/22 07:29 Last Admin: 12/14/21 12:06 Dose: 6 units Documented by: Lidocaine (Lidocaine 5% 1 Patch) 1 patch TD [facility] Stop: 01/09/22 08:59 Last Admin: 12/14/21 08:01 Dose: 1 patch Documented by: Lorazepam (Lorazepam 0.5 Mg Tab) 0.5 mg PO [facility] Stop: 01/06/22 01:46 Last Admin: 12/14/21 08:01 Dose: 0.5 mg Documented by: Lorazepam (Lorazepam 0.5 Mg Tab) 0.5 mg PO Q8H PRN PRN Reason: Sedation/Anxiety Stop: 01/11/22 17:56 Lorazepam (Lorazepam 2 Mg/1 Ml Vial) 0.5 mg IV Q8H PRN PRN Reason: Sedation/Anxiety Stop: 01/11/22 17:56 Magnesium Hydroxide (Magnesium Hydroxide Susp 30 Ml Udc) 30 ml PO Q24H PRN PRN Reason: Constipation Stop: 01/11/22 17:56 Metoclopramide HCl (Metoclopramide Hcl Inj 5 Mg/Ml 2 Ml Vial) 10 mg IV Q6H PRN PRN Reason: Nausea &/or Vomiting Stop: 01/11/22 17:56 Metoprolol Succinate (Metoprolol Succ 25mg Ext Rel Tab) 25 mg PO [facility] Stop: 01/06/22 08:59 Last Admin: 12/14/21 08:01 Dose: 25 mg Documented by: Miconazole Nitrate (Miconazole Nitrate Powder 43 Gm) 1 appln EXT PRN PRN PRN Reason: Affected Skin Folds Stop: 01/06/22 02:00 Last Admin: 12/07/21 21:00 Dose: 1 appln Documented by: Miscellaneous (Carbohydrates For Hypoglycemia ) 15 - 30 gm PO UD PRN PRN Reason: Hypoglycemia Protocol Stop: 01/06/22 01:46 Miscellaneous (Remove Lidoderm Patch) 1 ea N/A DAILY@2100 [facility] Stop: 01/09/22 20:59 Last Admin: 12/13/21 21:57 Dose: 1 ea Documented by: Naloxone HCl (Naloxone Hcl 0.4 Mg/1 Ml Vial/Carp) 0.1 mg IV Q5M PRN PRN Reason: Oversedation/Resp depression Stop: 01/11/22 17:56 Ondansetron HCl (Ondansetron Inj 2 Mg/Ml 2 Ml Vial) 4 mg IV Q6H PRN PRN Reason: Nausea &/or Vomiting Stop: 01/11/22 17:56 Ondansetron HCl (Ondansetron 4 Mg Od Tab) 4 mg PO Q6H PRN PRN Reason: Nausea Stop: 01/11/22 17:56 Oxycodone HCl (Oxycodone Hcl Ir 5 Mg Tab (Immediate Release)) 5 - 10 mg PO Q4H PRN PRN Reason: Pain & Pre PT Stop: 12/26/21 17:56 Last Admin: 12/13/21 13:31 Dose: 10 mg Documented by: Pneumococcal Polyvalent Vaccine (Do Not Administer Pneumococcal Vaccine) 1 ea N/A PRN PRN PRN Reason: Notification Stop: 01/11/22 17:56 Polyethylene Glycol (Polyethylene (Miralax) 17 Gm Pack) 17 gm PO DAILY PRN PRN Reason: Constipation Stop: 01/06/22 01:46 Polyethylene Glycol (Polyethylene (Miralax) 17 Gm Pack) 17 gm PO Q6 [facility] Stop: 01/12/22 05:59 Last Admin: 12/14/21 11:21 Dose: Not Given Documented by: Prednisone (Prednisone 20 Mg Tab) 20 mg PO DAILY [facility] Stop: 01/07/22 08:59 Last Admin: 12/14/21 08:01 Dose: 20 mg Documented by: Senna/Docusate Sodium (Docusate Sodium/Senna 50/8.6mg Tab) 2 tab PO HS [facility] Stop: 01/11/22 20:59 Last Admin: 12/13/21 21:43 Dose: 2 tab Documented by: Sodium Biphosphate/Sodium Phosphate (Sod Phosphate/Sod Biphosphate Enema 132 Ml Btl) 132 ml [place] ONE PRN PRN Reason: Constipation Stop: 01/11/22 17:56 Tramadol HCl (Tramadol Hcl 50 Mg Tablet) 50 - 100 mg PO Q4H PRN PRN Reason: Moderate-Severe pain & Pre PT Stop: 01/11/22 17:56 Valsartan (Valsartan 80 Mg Tab) 80 mg PO QDL [facility] Stop: 01/06/22 02:24 Last Admin: 12/14/21 11:21 Dose: 80 mg Documented by:
[2021-12-14] MEDS: ATORVASTATIN 40 MG TAB PO SCH (21:27)
[2021-12-14] MEDS: DOCUSATE SODIUM/SENNA 50/8.6MG TAB PO SCH (21:28)
[2021-12-14] MEDS: amLODIPine BESYLATE 5 MG TAB PO SCH (21:28)
[2021-12-15] MEDS: CARBIDOPA/LEVODOPA 25-250 1 EA TAB PO SCH ×4 (07:41→20:55)
[2021-12-15] MEDS: ESCITALOPRAM OXALATE 10 MG TAB PO SCH (07:42)
[2021-12-15] MEDS: FAMOTIDINE 20 MG TAB PO PRN (07:42)
[2021-12-15] MEDS: predniSONE 20 MG TAB PO SCH (07:42)
[2021-12-15] MEDS: METOPROLOL SUCC 25MG EXT REL TAB PO SCH (07:42)
[2021-12-15] MEDS: FERROUS SULFATE 325 MG TAB PO SCH (07:42)
[2021-12-15] MEDS: LORazepam 0.5 MG TAB PO SCH ×2 (07:44→20:55)
[2021-12-15] MEDS: LIDOCAINE 5% 1 PATCH TD SCH (08:23)
[2021-12-15] MEDS: INSULIN ASPART PER UNIT SC SCH ×4 (08:43→20:56)
[2021-12-15 08:57] LABS: Hematocrit (blood only) 39.1 % (37-47); Hemoglobin 12.4 g/dL (12.0-16.0); Mean Corpuscular Hemoglobin 24.5 pg (25-34); Mean Corpuscular Hgb Conc 31.7 g/dL (32-36); Mean Corpuscular Volume 77.3 fL (80-100); Platelet Count 184 K/uL (130-400); RDW Standard Deviation 69.5 fL (36.4-46.3); Red Blood Count 5.06 M/uL (4.2-5.4); White Blood Count 13.72 K/uL (4.8-10.8)
[2021-12-15 09:06] LABS: INR 1.1 (0.9-1.1); Prothrombin Time 11.7 Seconds (9.0-12.0)
[2021-12-15 10:04] LABS: Creatinine Clr Calc Pharmacy 68.4 ml/min; Est GFR (African American) 89.6 ml/min; Est GFR (Non-African American) 77.3 ml/min; Potassium 3.9 mmol/L (3.5-5.1)
--- NOTE | 2021-12-15 12:15 | Hospitalist Progress Note ---
Date of Service December 15, 2021 Assessment & Plan (1) Back pain: (2) Radicular pain of right lower extremity: Plan: Present on admission with worsening back pain Lumbar xray showed no acute bony abnormality is seen involving the lumbar spine. Osteopenia with postoperative and spondylotic change MRI thoracic spine showed e is fluid within the T12-L1 disc space with marked marrow edema in the body of T12 and surrounding paravertebral edema. The appearance is highly suspicious for discitis/osteomyelitis. CT thoracic spine showed endplate sclerosis and irregularity with vacuum phenomenon noted at the T12-L1 disc space level. There is also mild paraver tebral soft tissue swelling at this level. Given the adjacent postoperative changes these findings are nonspecific and could represent chronic degenerative disc disease. ESR mildly elevated at 43, then trending down to 38 CRP and procalcitonin are normal Continue to hold on abx for now, but if blood cx positive or pt develops any fever will start on abx Blood cx no growth Ortho-spine consulted Case discussed with Dr. Marcelino who is concerned about any nerve compression Pt is now s/p thoracolumbar decompression fusion T11 and L1 (12/12), w/ Dr. Marcelino Tolerated procedure well Continue pain control INR 1.7 on 12/12, 1.2 (12/13), 1.1 (12/14) continue to hold coumadin IV Vit K given (12/12),prior to surgery Resume coumadine today (12/15) Continue monitor closely Hypertension BP was elevated possible due to back pain seems to be at goal now Continue BP med UTI Denies any urinary symptoms Urine cx outpatient on 12/04 grew E.coli and strep viridan group Continued Ceftriaxone, finished on 12/14 Urinary retention 12/15 - now notified patient is retaining urine, and needed straight cath x3 We will place Monet catheter Mild leukocytosis Current WBC 13,000, continue to monitor closely Afib rate control on metoprolol INR 1.1 this morning Received Vit K to get INR below 1.5 for procedure Discussed w/ ortho when to resume coumadin - plan to resume today (12/15) DVT px SCDs , Coumadin on hold , resume today (12/15) Code status full code Outpatient cx ulture Growth 10,000 to 100,000 colonies/mL [place]her[place] a coliAbnormalAmpC Beta- lactamase producing organism. This gram negative bacilli displays in vitro resistance to multiple antibiotics.10,000 to 100,000 colonies/mL Streptococcus viridans groupAbnormal<10,000 colonies/ml mixed normal sruthi Resulting Agency: Susceptibility Escherichia coliMICROBROTH DILUTIONSAmpicillinResistantAmpicillin/Kendall lbactamIntermediateCefazolinResistantCefepimeSusceptibleCefoxitinIntermediateCef triaxoneSusceptibleCiprofloxacinSusceptible1 GentamicinSusceptibleNitrofurantoinSusceptiblePiperacillin TazobactamSusceptibleTrimeth/SulfamethoxazoleSusceptible Admission and Anticipated Discharge Date Admission Date: December 09, 2021 Subjective Pt was seen and examined for follow up of back pain, now post op s/p thoracicolumbar spinal surgery w/ Dr. Marcelino Plan to resume coumadine today Had episode days ago when she got a food "stuck", seen by madelyn andrea in chart Now notified that pt is retaining urine, and required straight cath x3, will place Monet Pt is sitting up in bed, in no acute distress Reports that back pain is much improved and she is able to ambulate, continues to have some numbness and tingling in her legs Denies any chest pain, palpitation, shortness of breath, dizziness, fever, or chills Also denies any abdominal pain, nausea vomiting Review of Systems Review of Systems: All systems reviewed & are unremarkable except as noted in Subjective Physical Exam Physical Exam: General- No acute distress Head- atraumatic Eyes- PERRL, EOMI, ENT- oropharynx clear Neck- supple, no JVD Lungs- clear to auscultation Heart- regular rhythm; +systolic murmur Abdomen- normal bowel sounds, soft, nontender Extremities- no calf tenderness Neuro- alert, oriented x 3; PERRL, EOMI; no facial palsy; no dysarthria Skin- warm & dry Results & Data Results & Data ([facility]) Vital Signs (Past 12 Hours) Vital Signs Temp Pulse Pulse Pulse Resp BP BP 12/15/21 11:03 36.8 C 70 18 143/83 H 12/15/21 08:28 73 12/15/21 08:09 36.8 C 91 H 18 146/83 H 12/15/21 03:57 36.9 C 66 20 144/81 H Pulse Ox 12/15/21 11:03 98 12/15/21 08:28 12/15/21 08:09 92 12/15/21 03:57 95 Laboratory Results 12/15/21 12/15/21 12/15/21 Range/Units 11:43 08:12 08:12 WBC (4.8-10.8) K/uL RBC (4.2-5.4) M/uL Hgb (12.0-16.0) g/dL Hct (37-47) % MCV (80-100) fL MCH (25-34) pg MCHC (32-36) g/dL RDW Std Deviation (36.4-46.3) fL RDW Coeff of Ratna (11.5-14.5) % Plt Count (130-400) K/uL PT 11.7 (9.0-12.0) Seconds INR 1.1 (0.9-1.1) Sodium 137 (136-145) mmol/L Potassium 3.9 (3.5-5.1) mmol/L Chloride 104 (98-107) mmol/L Carbon Dioxide 24 (21-32) mmol/L Anion Gap 9 (3-11) BUN 19 (6-23) mg/dl Creatinine 0.76 (0.6-1.2) mg/dl Est Cr Clr Drug Dosing 68.4 ml/min Est GFR ( Amer) 89.6 ml/min Est GFR (Non-Af Amer) 77.3 ml/min BUN/Creatinine Ratio 25.0 H (10-20) Glucose 108 H (70-99(Fasting)) mg/dl POC Glucose 164 H (70-99) mg/dl Calcium 8.0 L (8.5-10.1) mg/dl 12/15/21 12/15/21 12/14/21 Range/Units 08:12 07:38 20:09 WBC 13.72 H (4.8-10.8) K/uL RBC 5.06 (4.2-5.4) M/uL Hgb 12.4 (12.0-16.0) g/dL Hct 39.1 (37-47) % MCV 77.3 L (80-100) fL MCH 24.5 L (25-34) pg MCHC 31.7 L (32-36) g/dL RDW Std Deviation 69.5 H (36.4-46.3) fL RDW Coeff of Ratna 25.0 H (11.5-14.5) % Plt Count 184 (130-400) K/uL PT (9.0-12.0) Seconds INR (0.9-1.1) Sodium (136-145) mmol/L Potassium (3.5-5.1) mmol/L Chloride (98-107) mmol/L Carbon Dioxide (21-32) mmol/L Anion Gap (3-11) BUN (6-23) mg/dl Creatinine (0.6-1.2) mg/dl Est Cr Clr Drug Dosing ml/min Est GFR ( Amer) ml/min Est GFR (Non-Af Amer) ml/min BUN/Creatinine Ratio (10-20) Glucose (70-99(Fasting)) mg/dl POC Glucose 96 176 H (70-99) mg/dl Calcium (8.5-10.1) mg/dl 12/14/21 Range/Units 16:33 WBC (4.8-10.8) K/uL RBC (4.2-5.4) M/uL Hgb (12.0-16.0) g/dL Hct (37-47) % MCV (80-100) fL MCH (25-34) pg MCHC (32-36) g/dL RDW Std Deviation (36.4-46.3) fL RDW Coeff of Ratna (11.5-14.5) % Plt Count (130-400) K/uL PT (9.0-12.0) Seconds INR (0.9-1.1) Sodium (136-145) mmol/L Potassium (3.5-5.1) mmol/L Chloride (98-107) mmol/L Carbon Dioxide (21-32) mmol/L Anion Gap (3-11) BUN (6-23) mg/dl Creatinine (0.6-1.2) mg/dl Est Cr Clr Drug Dosing ml/min Est GFR ( Amer) ml/min Est GFR (Non-Af Amer) ml/min BUN/Creatinine Ratio (10-20) Glucose (70-99(Fasting)) mg/dl POC Glucose 123 H (70-99) mg/dl Calcium (8.5-10.1) mg/dl Medications Administered Current Inpatient Medications Acetaminophen (Acetaminophen 325 Mg Tab) 650 mg PO Q4H PRN PRN Reason: FEVER/PAIN Stop: 01/06/22 01:46 Last Admin: 12/10/21 22:29 Dose: 650 mg Documented by: Al Hydrox/Mg Hydrox/Simethicone (Aluminum/Magnesium Susp 30 Ml Udc) 30 ml PO Q6H PRN PRN Reason: Dyspepsia Stop: 01/11/22 17:56 Amlodipine Besylate (Amlodipine Besylate 5 Mg Tab) 5 mg PO HS [facility] Stop: 01/07/22 20:59 Last Admin: 12/14/21 21:28 Dose: 5 mg Documented by: Atorvastatin Calcium (Atorvastatin 40 Mg Tab) 80 mg PO HS [facility] Stop: 01/06/22 20:59 Last Admin: 12/14/21 21:27 Dose: 80 mg Documented by: Baclofen (Baclofen 10 Mg Tab) 10 mg PO HS PRN PRN Reason: Muscle Spasm Stop: 01/06/22 01:46 Last Admin: 12/07/21 22:59 Dose: 10 mg Documented by: Bisacodyl (Bisacodyl 10 Mg Supp) 10 mg AR DAILY PRN PRN Reason: Constipation Stop: 01/11/22 17:56 Carbidopa/Levodopa (Carbidopa/Levodopa 25-250 1 Ea Tab) 1 tab PO QID@0900,1200,1600,2100 [facility] Stop: 01/06/22 08:59 Last Admin: 12/15/21 07:41 Dose: 1 tab Documented by: Dextrose (Dextrose 50% 50 Ml Syringe) 25 - 50 ml IV UD PRN; Protocol PRN Reason: Hypoglycemia Protocol Stop: 01/06/22 01:46 Diphenhydramine HCl (Diphenhydramine Capsule 25 Mg Cap) 25 mg PO Q6H PRN PRN Reason: Allergic Rhinitis/Insomnia Stop: 01/11/22 17:56 Docusate Sodium (Docusate Sodium 100 Mg Cap) 200 mg PO DAILY PRN PRN Reason: Constipation Stop: 01/06/22 01:46 Last Admin: 12/10/21 13:50 Dose: 200 mg Documented by: Escitalopram Oxalate (Escitalopram Oxalate 10 Mg Tab) 10 mg PO QAM [facility] Stop: 01/06/22 08:59 Last Admin: 12/15/21 07:42 Dose: 10 mg Documented by: Famotidine (Famotidine 20 Mg Tab) 20 mg PO Q12H PRN PRN Reason: Dyspepsia Stop: 01/11/22 17:56 Last Admin: 12/15/21 07:42 Dose: 20 mg Documented by: Ferrous Sulfate (Ferrous Sulfate 325 Mg Tab) 325 mg PO DAILY@0800 [facility] Stop: 01/06/22 07:59 Last Admin: 12/15/21 07:42 Dose: 325 mg Documented by: Glucagon (Glucagon For Inj 1 Mg Vial) 1 mg SQ UD PRN; Protocol PRN Reason: Hypoglycemia Protocol Stop: 01/06/22 01:46 Glucose (Glucose 10 Tabs/Tube) 4 - 8 tabs PO UD PRN; Protocol PRN Reason: Hypoglycemia Protocol Stop: 01/06/22 01:46 Glucose (Glucose 40% Gel 15 Gm Tube) 15 - 30 gm PO UD PRN; Protocol PRN Reason: Hypoglycemia Protocol Stop: 01/06/22 01:46 Hydralazine HCl (Hydralazine Hcl 20 Mg/Ml Vial) 5 mg IV Q6H PRN PRN Reason: SBP above 170 Stop: 01/07/22 11:44 Last Admin: 12/08/21 15:20 Dose: 5 mg Documented by: Hydromorphone HCl (Hydromorphone Inj 0.5 Mg/0.5 Ml Syr) 0.5 mg IV Q3H PRN PRN Reason: MODERATE Pain (Scale 4,5,6) & Pre PT Stop: 12/26/21 17:56 Last Admin: 12/14/21 00:55 Dose: 0.5 mg Documented by: Hydromorphone HCl (Hydromorphone Inj 1 Mg/Ml Syringe) 1 mg IV Q3H PRN PRN Reason: SEVERE Pain (Scale 7,8,9,10) Stop: 12/26/21 17:56 Hydroxyzine HCl (Hydroxyzine Hcl 25 Mg Tab) 25 mg PO Q8H PRN PRN Reason: Anxiety Stop: 01/11/22 17:56 Acetaminophen (Ofirmev) 1,000 mg in 100 mls @ 400 mls/hr IV Q8H PRN PRN Reason: Pain Rating 1-3 & Pre PT Stop: 12/15/21 17:56 Promethazine HCl 12.5 mg/ (Sodium Chloride) 50.5 mls @ 202 mls/hr IV Q6H PRN PRN Reason: Nausea &/or Vomiting Stop: 01/11/22 17:56 Influenza Virus Vaccine Quadrival (Do Not Administer Flu Vaccine) 1 ea N/A PRN PRN PRN Reason: Notification Stop: 01/11/22 17:56 Insulin Aspart (Insulin Aspart Per Unit) 0 units SC [facility] Stop: 01/12/22 07:29 Last Admin: 12/15/21 08:43 Dose: 2 units Documented by: Lidocaine (Lidocaine 5% 1 Patch) 1 patch TD [facility] Stop: 01/09/22 08:59 Last Admin: 12/15/21 08:23 Dose: Not Given Documented by: Lorazepam (Lorazepam 0.5 Mg Tab) 0.5 mg PO [facility] Stop: 01/06/22 01:46 Last Admin: 12/15/21 07:44 Dose: 0.5 mg Documented by: Lorazepam (Lorazepam 0.5 Mg Tab) 0.5 mg PO Q8H PRN PRN Reason: Sedation/Anxiety Stop: 01/11/22 17:56 Lorazepam (Lorazepam 2 Mg/1 Ml Vial) 0.5 mg IV Q8H PRN PRN Reason: Sedation/Anxiety Stop: 01/11/22 17:56 Magnesium Hydroxide (Magnesium Hydroxide Susp 30 Ml Udc) 30 ml PO Q24H PRN PRN Reason: Constipation Stop: 01/11/22 17:56 Metoclopramide HCl (Metoclopramide Hcl Inj 5 Mg/Ml 2 Ml Vial) 10 mg IV Q6H PRN PRN Reason: Nausea &/or Vomiting Stop: 01/11/22 17:56 Metoprolol Succinate (Metoprolol Succ 25mg Ext Rel Tab) 25 mg PO [facility] Stop: 01/06/22 08:59 Last Admin: 12/15/21 07:42 Dose: 25 mg Documented by: Miconazole Nitrate (Miconazole Nitrate Powder 43 Gm) 1 appln EXT PRN PRN PRN Reason: Affected Skin Folds Stop: 01/06/22 02:00 Last Admin: 12/07/21 21:00 Dose: 1 appln Documented by: Miscellaneous (Carbohydrates For Hypoglycemia ) 15 - 30 gm PO UD PRN PRN Reason: Hypoglycemia Protocol Stop: 01/06/22 01:46 Miscellaneous (Remove Lidoderm Patch) 1 ea N/A DAILY@2100 [facility] Stop: 01/09/22 20:59 Last Admin: 12/14/21 21:28 Dose: Not Given Documented by: Naloxone HCl (Naloxone Hcl 0.4 Mg/1 Ml Vial/Carp) 0.1 mg IV Q5M PRN PRN Reason: Oversedation/Resp depression Stop: 01/11/22 17:56 Ondansetron HCl (Ondansetron Inj 2 Mg/Ml 2 Ml Vial) 4 mg IV Q6H PRN PRN Reason: Nausea &/or Vomiting Stop: 01/11/22 17:56 Ondansetron HCl (Ondansetron 4 Mg Od Tab) 4 mg PO Q6H PRN PRN Reason: Nausea Stop: 01/11/22 17:56 Oxycodone HCl (Oxycodone Hcl Ir 5 Mg Tab (Immediate Release)) 5 - 10 mg PO Q4H PRN PRN Reason: Pain & Pre PT Stop: 12/26/21 17:56 Last Admin: 12/13/21 13:31 Dose: 10 mg Documented by: Pneumococcal Polyvalent Vaccine (Do Not Administer Pneumococcal Vaccine) 1 ea N/A PRN PRN PRN Reason: Notification Stop: 01/11/22 17:56 Polyethylene Glycol (Polyethylene (Miralax) 17 Gm Pack) 17 gm PO DAILY PRN PRN Reason: Constipation Stop: 01/06/22 01:46 Prednisone (Prednisone 20 Mg Tab) 20 mg PO DAILY [facility] Stop: 01/07/22 08:59 Last Admin: 12/15/21 07:42 Dose: 20 mg Documented by: Senna/Docusate Sodium (Docusate Sodium/Senna 50/8.6mg Tab) 2 tab PO HS [facility] Stop: 01/11/22 20:59 Last Admin: 12/14/21 21:28 Dose: Not Given Documented by: Sodium Biphosphate/Sodium Phosphate (Sod Phosphate/Sod Biphosphate Enema 132 Ml Btl) 132 ml AR ONE PRN PRN Reason: Constipation Stop: 01/11/22 17:56 Tramadol HCl (Tramadol Hcl 50 Mg Tablet) 50 - 100 mg PO Q4H PRN PRN Reason: Moderate-Severe pain & Pre PT Stop: 01/11/22 17:56 Valsartan (Valsartan 80 Mg Tab) 80 mg PO QDL [facility] Stop: 01/06/22 02:24 Last Admin: 12/14/21 11:21 Dose: 80 mg Documented by: Warfarin Sodium (Warfarin Sod 3 Mg Tab) 3 mg PO DAILY@1600 [facility] Stop: 01/14/22 15:59
[2021-12-15] MEDS: VALSARTAN 80 MG TAB PO SCH (13:18)
--- NOTE | 2021-12-15 14:12 | Orthopedic Progress Note ---
Date of Service December 15, 2021 Assessment & Plan (1) Myelopathy concurrent with and due to spinal stenosis of thoracic region: Plan: Patient will continue physical therapy. She is planning for rehab. We can maintain the drain at discharge for another 2 days. Admission and Anticipated Discharge Date Admission Date: December 09, 2021 Subjective Back pain improving leg pain improving Physical Exam Physical Exam: Patient is in the chair at the bedside. Appears comfortable. Is good strength testing. Results & Data ([facility]) Vital Signs (Past 12 Hours) Vital Signs Temp Pulse Pulse Pulse Resp BP BP 12/15/21 11:03 36.8 C 70 18 143/83 H 12/15/21 08:28 73 12/15/21 08:09 36.8 C 91 H 18 146/83 H 12/15/21 03:57 36.9 C 66 20 144/81 H Pulse Ox 12/15/21 11:03 98 12/15/21 08:28 12/15/21 08:09 92 12/15/21 03:57 95
[2021-12-15] MEDS ORDERED: WARFARIN SOD 3 MG TAB PO SCH (16:00)
[2021-12-15] MEDS: ATORVASTATIN 40 MG TAB PO SCH (20:55)
[2021-12-15] MEDS: DOCUSATE SODIUM/SENNA 50/8.6MG TAB PO SCH (20:55)
[2021-12-15] MEDS: amLODIPine BESYLATE 5 MG TAB PO SCH (20:55)
[2021-12-16] MEDS: INSULIN ASPART PER UNIT SC SCH ×2 (09:14→13:28)
[2021-12-16] MEDS: ACETAMINOPHEN 325 MG TAB PO PRN (09:14)
[2021-12-16] MEDS: ESCITALOPRAM OXALATE 10 MG TAB PO SCH (09:15)
[2021-12-16] MEDS: LORazepam 0.5 MG TAB PO SCH (09:15)
[2021-12-16] MEDS: FERROUS SULFATE 325 MG TAB PO SCH (09:15)
[2021-12-16] MEDS: FAMOTIDINE 20 MG TAB PO PRN (09:16)
[2021-12-16] MEDS: predniSONE 20 MG TAB PO SCH (09:16)
[2021-12-16] MEDS: METOPROLOL SUCC 25MG EXT REL TAB PO SCH (09:16)
[2021-12-16] MEDS: CARBIDOPA/LEVODOPA 25-250 1 EA TAB PO SCH ×2 (09:16→13:31)
--- NOTE | 2021-12-16 09:22 | Hospitalist Progress Note ---
Date of Service December 16, 2021 Assessment & Plan (1) Back pain: (2) Radicular pain of right lower extremity: Plan: Present on admission with worsening back pain Lumbar xray showed no acute bony abnormality is seen involving the lumbar spine. Osteopenia with postoperative and spondylotic change MRI thoracic spine showed e is fluid within the T12-L1 disc space with marked marrow edema in the body of T12 and surrounding paravertebral edema. The appearance is highly suspicious for discitis/osteomyelitis. CT thoracic spine showed endplate sclerosis and irregularity with vacuum phenomenon noted at the T12-L1 disc space level. There is also mild paraver tebral soft tissue swelling at this level. Given the adjacent postoperative changes these findings are nonspecific and could represent chronic degenerative disc disease. ESR mildly elevated at 43, then trending down to 38 CRP and procalcitonin are normal Blood cx no growth Ortho-spine consulted Case discussed with Dr. Marcelino - concerned about any nerve compression Pt is now s/p thoracolumbar decompression fusion T11 and L1 (12/12), w/ Dr. Marcelino Tolerated procedure well Continue pain control INR 1.7 on 12/12, 1.2 (12/13), 1.1 (12/14) continued to hold coumadin, resumed on 12/15 IV Vit K given (12/12),prior to surgery Resumed coumadine (12/15) Continue monitor closely Hypertension BP was elevated possible due to back pain At goal now Continue BP med UTI Denies any urinary symptoms Urine cx outpatient on 12/04 grew E.coli and strep viridan group Continued Ceftriaxone, finished on 12/14 Urinary retention 12/15 - now notified patient is retaining urine, and needed straight cath x3 Placed Monet catheter, recommend to remove in next 2 days and monitor for any retention Mild leukocytosis resolved Afib rate control on metoprolol INR 1.1 this morning Received Vit K to get INR below 1.5 for procedure Discussed w/ ortho when to resume coumadin - Resumed on 12/15 DVT px SCDs , Coumadin on hold , now resumed Code status full code Outpatient cx ulture Growth 10,000 to 100,000 colonies/mL [place] a coliAbnormalAmpC Beta- lactamase producing organism. This gram negative bacilli displays in vitro resistance to multiple antibiotics.10,000 to 100,000 colonies/mL Streptococcus viridans groupAbnormal<10,000 colonies/ml mixed normal sruthi Resulting Agency: Susceptibility Escherichia coliMICROBROTH DILUTIONS AmpicillinResistantAmpicillin/SulbactamIntermediateCefazolinResistantCefepimeSus ceptibleCefoxitinIntermediateCeftriaxoneSusceptibleCiprofloxacinSusceptible1 GentamicinSusceptibleNitrofurantoinSusceptiblePiperacillin TazobactamSusceptibleTrimeth/SulfamethoxazoleSusceptible Admission and Anticipated Discharge Date Admission Date: December 09, 2021 Subjective Pt was seen and examined for follow up of back pain, now post op s/p thoracicolumbar spinal surgery w/ Dr. Marcelino Resumed coumadine yesterday Had episode days ago when she got a food "stuck", seen by madelyn andrea in chart Yesterday notified that pt was retaining urine, and required straight cath x3, Monet placed (12/15) Pt is sitting up in chair, in no acute distress Reports that back pain is much improved and she is able to ambulate, continues to have some numbness and tingling in her legs Denies any chest pain, palpitation, shortness of breath, dizziness, fever, or chills Also denies any abdominal pain, nausea vomiting Review of Systems Review of Systems: All systems reviewed & are unremarkable except as noted in Subjective Physical Exam Physical Exam: General- No acute distress Head- atraumatic Eyes- PERRL, EOMI, ENT- oropharynx clear Neck- supple, no JVD Lungs- clear to auscultation Heart- regular rhythm; +systolic murmur Abdomen- normal bowel sounds, soft, nontender Extremities- no calf tenderness Neuro- alert, oriented x 3; PERRL, EOMI; no facial palsy; no dysarthria Skin- warm & dry Results & Data Results & Data ([facility]) Vital Signs (Past 12 Hours) Vital Signs Temp Pulse Pulse Resp BP Pulse Ox 12/16/21 09:04 75 12/16/21 07:51 37.1 C 79 18 153/85 H 95 12/16/21 03:00 36.9 C 68 20 151/88 H 96 12/15/21 22:42 36.8 C 75 20 132/77 94 Laboratory Results 12/16/21 12/16/21 12/16/21 Range/Units 11:43 10:11 10:11 WBC 10.48 (4.8-10.8) K/uL RBC 5.23 (4.2-5.4) M/uL Hgb 12.7 (12.0-16.0) g/dL Hct 40.7 (37-47) % MCV 77.8 L (80-100) fL MCH 24.3 L (25-34) pg MCHC 31.2 L (32-36) g/dL RDW Std Deviation 70.4 H (36.4-46.3) fL RDW Coeff of Ratna 24.9 H (11.5-14.5) % Plt Count 222 (130-400) K/uL MPV 10.2 (7.4-10.4) fL PT (9.0-12.0) Seconds INR (0.9-1.1) Sodium 138 (136-145) mmol/L Potassium 3.9 (3.5-5.1) mmol/L Chloride 104 (98-107) mmol/L Carbon Dioxide 26 (21-32) mmol/L Anion Gap 8 (3-11) BUN 22 (6-23) mg/dl Creatinine 0.89 (0.6-1.2) mg/dl Est Cr Clr Drug Dosing 58.4 ml/min Est GFR ( Amer) 74.0 ml/min Est GFR (Non-Af Amer) 63.8 ml/min BUN/Creatinine Ratio 24.7 H (10-20) Glucose 118 H (70-99(Fasting)) mg/dl POC Glucose 122 H (70-99) mg/dl Calcium 8.3 L (8.5-10.1) mg/dl Phosphorus 2.1 L (2.5-4.9) mg/dl Magnesium 1.7 (1.7-2.4) mg/dl 12/16/21 12/16/21 12/15/21 Range/Units 10:11 07:36 20:23 WBC (4.8-10.8) K/uL RBC (4.2-5.4) M/uL Hgb (12.0-16.0) g/dL Hct (37-47) % MCV (80-100) fL MCH (25-34) pg MCHC (32-36) g/dL RDW Std Deviation (36.4-46.3) fL RDW Coeff of Ratna (11.5-14.5) % Plt Count (130-400) K/uL MPV (7.4-10.4) fL PT 11.5 (9.0-12.0) Seconds INR 1.1 (0.9-1.1) Sodium (136-145) mmol/L Potassium (3.5-5.1) mmol/L Chloride (98-107) mmol/L Carbon Dioxide (21-32) mmol/L Anion Gap (3-11) BUN (6-23) mg/dl Creatinine (0.6-1.2) mg/dl Est Cr Clr Drug Dosing ml/min Est GFR ( Amer) ml/min Est GFR (Non-Af Amer) ml/min BUN/Creatinine Ratio (10-20) Glucose (70-99(Fasting)) mg/dl POC Glucose 127 H 107 H (70-99) mg/dl Calcium (8.5-10.1) mg/dl Phosphorus (2.5-4.9) mg/dl Magnesium (1.7-2.4) mg/dl 12/15/21 Range/Units 16:31 WBC (4.8-10.8) K/uL RBC (4.2-5.4) M/uL Hgb (12.0-16.0) g/dL Hct (37-47) % MCV (80-100) fL MCH (25-34) pg MCHC (32-36) g/dL RDW Std Deviation (36.4-46.3) fL RDW Coeff of Ratna (11.5-14.5) % Plt Count (130-400) K/uL MPV (7.4-10.4) fL PT (9.0-12.0) Seconds INR (0.9-1.1) Sodium (136-145) mmol/L Potassium (3.5-5.1) mmol/L Chloride (98-107) mmol/L Carbon Dioxide (21-32) mmol/L Anion Gap (3-11) BUN (6-23) mg/dl Creatinine (0.6-1.2) mg/dl Est Cr Clr Drug Dosing ml/min Est GFR ( Amer) ml/min Est GFR (Non-Af Amer) ml/min BUN/Creatinine Ratio (10-20) Glucose (70-99(Fasting)) mg/dl POC Glucose 167 H (70-99) mg/dl Calcium (8.5-10.1) mg/dl Phosphorus (2.5-4.9) mg/dl Magnesium (1.7-2.4) mg/dl Medications Administered Current Inpatient Medications Acetaminophen (Acetaminophen 325 Mg Tab) 650 mg PO Q4H PRN PRN Reason: FEVER/PAIN Stop: 01/06/22 01:46 Last Admin: 12/16/21 09:14 Dose: 650 mg Documented by: Al Hydrox/Mg Hydrox/Simethicone (Aluminum/Magnesium Susp 30 Ml Udc) 30 ml PO Q6H PRN PRN Reason: Dyspepsia Stop: 01/11/22 17:56 Amlodipine Besylate (Amlodipine Besylate 5 Mg Tab) 5 mg PO HS C[facility]STAL Stop: 01/07/22 20:59 Last Admin: 12/15/21 20:55 Dose: 5 mg Documented by: Atorvastatin Calcium (Atorvastatin 40 Mg Tab) 80 mg PO HS CRISTAL Stop: 01/06/22 20:59 Last Admin: 12/15/21 20:55 Dose: 80 mg Documented by: Baclofen (Baclofen 10 Mg Tab) 10 mg PO HS PRN PRN Reason: Muscle Spasm Stop: 01/06/22 01:46 Last Admin: 12/07/21 22:59 Dose: 10 mg Documented by: Bisacodyl (Bisacodyl 10 Mg Supp) 10 mg WA DAILY PRN PRN Reason: Constipation Stop: 01/11/22 17:56 Carbidopa/Levodopa (Carbidopa/Levodopa 25-250 1 Ea Tab) 1 tab PO QID@0900,1200,1600,2100 [facility] Stop: 01/06/22 08:59 Last Admin: 12/16/21 09:16 Dose: 1 tab Documented by: Dextrose (Dextrose 50% 50 Ml Syringe) 25 - 50 ml IV UD PRN; Protocol PRN Reason: Hypoglycemia Protocol Stop: 01/06/22 01:46 Diphenhydramine HCl (Diphenhydramine Capsule 25 Mg Cap) 25 mg PO Q6H PRN PRN Reason: Allergic Rhinitis/Insomnia Stop: 01/11/22 17:56 Docusate Sodium (Docusate Sodium 100 Mg Cap) 200 mg PO DAILY PRN PRN Reason: Constipation Stop: 01/06/22 01:46 Last Admin: 12/10/21 13:50 Dose: 200 mg Documented by: Escitalopram Oxalate (Escitalopram Oxalate 10 Mg Tab) 10 mg PO QAM CRISTAL Stop: 01/06/22 08:59 Last Admin: 12/16/21 09:15 Dose: 10 mg Documented by: Famotidine (Famotidine 20 Mg Tab) 20 mg PO Q12H PRN PRN Reason: Dyspepsia Stop: 01/11/22 17:56 Last Admin: 12/16/21 09:16 Dose: 20 mg Documented by: Ferrous Sulfate (Ferrous Sulfate 325 Mg Tab) 325 mg PO DAILY@0800 [facility] Stop: 01/06/22 07:59 Last Admin: 12/16/21 09:15 Dose: 325 mg Documented by: Glucagon (Glucagon For Inj 1 Mg Vial) 1 mg SQ UD PRN; Protocol PRN Reason: Hypoglycemia Protocol Stop: 01/06/22 01:46 Glucose (Glucose 10 Tabs/Tube) 4 - 8 tabs PO UD PRN; Protocol PRN Reason: Hypoglycemia Protocol Stop: 01/06/22 01:46 Glucose (Glucose 40% Gel 15 Gm Tube) 15 - 30 gm PO UD PRN; Protocol PRN Reason: Hypoglycemia Protocol Stop: 01/06/22 01:46 Hydralazine HCl (Hydralazine Hcl 20 Mg/Ml Vial) 5 mg IV Q6H PRN PRN Reason: SBP above 170 Stop: 01/07/22 11:44 Last Admin: 12/08/21 15:20 Dose: 5 mg Documented by: Hydromorphone HCl (Hydromorphone Inj 0.5 Mg/0.5 Ml Syr) 0.5 mg IV Q3H PRN PRN Reason: MODERATE Pain (Scale 4,5,6) & Pre PT Stop: 12/26/21 17:56 Last Admin: 12/14/21 00:55 Dose: 0.5 mg Documented by: Hydromorphone HCl (Hydromorphone Inj 1 Mg/Ml Syringe) 1 mg IV Q3H PRN PRN Reason: SEVERE Pain (Scale 7,8,9,10) Stop: 12/26/21 17:56 Hydroxyzine HCl (Hydroxyzine Hcl 25 Mg Tab) 25 mg PO Q8H PRN PRN Reason: Anxiety Stop: 01/11/22 17:56 Promethazine HCl 12.5 mg/ (Sodium Chloride) 50.5 mls @ 202 mls/hr IV Q6H PRN PRN Reason: Nausea &/or Vomiting Stop: 01/11/22 17:56 Influenza Virus Vaccine Quadrival (Do Not Administer Flu Vaccine) 1 ea N/A PRN PRN PRN Reason: Notification Stop: 01/11/22 17:56 Insulin Aspart (Insulin Aspart Per Unit) 0 units SC [facility] Stop: 01/12/22 07:29 Last Admin: 12/16/21 09:14 Dose: 2 units Documented by: Lidocaine (Lidocaine 5% 1 Patch) [address] [facility] Stop: 01/09/22 08:59 Last Admin: 12/15/21 08:23 Dose: Not Given Documented by: Lorazepam (Lorazepam 0.5 Mg Tab) 0.5 mg PO [facility] Stop: 01/06/22 01:46 Last Admin: 12/16/21 09:15 Dose: 0.5 mg Documented by: Lorazepam (Lorazepam 0.5 Mg Tab) 0.5 mg PO Q8H PRN PRN Reason: Sedation/Anxiety Stop: 01/11/22 17:56 Lorazepam (Lorazepam 2 Mg/1 Ml Vial) 0.5 mg IV Q8H PRN PRN Reason: Sedation/Anxiety Stop: 01/11/22 17:56 Magnesium Hydroxide (Magnesium Hydroxide Susp 30 Ml Udc) 30 ml PO Q24H PRN PRN Reason: Constipation Stop: 01/11/22 17:56 Metoclopramide HCl (Metoclopramide Hcl Inj 5 Mg/Ml 2 Ml Vial) 10 mg IV Q6H PRN PRN Reason: Nausea &/or Vomiting Stop: 01/11/22 17:56 Metoprolol Succinate (Metoprolol Succ 25mg Ext Rel Tab) [address] [facility] Stop: 01/06/22 08:59 Last Admin: 12/16/21 09:16 Dose: 25 mg Documented by: Miconazole Nitrate (Miconazole Nitrate Powder 43 Gm) 1 appln EXT PRN PRN PRN Reason: Affected Skin Folds Stop: 01/06/22 02:00 Last Admin: 12/07/21 21:00 Dose: 1 appln Documented by: Miscellaneous (Carbohydrates For Hypoglycemia ) 15 - 30 gm PO UD PRN PRN Reason: Hypoglycemia Protocol Stop: 01/06/22 01:46 Miscellaneous (Remove Lidoderm Patch) 1 ea N/A DAILY@2100 [facility] Stop: 01/09/22 20:59 Last Admin: 12/15/21 20:56 Dose: Not Given Documented by: Naloxone HCl (Naloxone Hcl 0.4 Mg/1 Ml Vial/Carp) 0.1 mg IV Q5M PRN PRN Reason: Oversedation/Resp depression Stop: 01/11/22 17:56 Ondansetron HCl (Ondansetron Inj 2 Mg/Ml 2 Ml Vial) 4 mg IV Q6H PRN PRN Reason: Nausea &/or Vomiting Stop: 01/11/22 17:56 Ondansetron HCl (Ondansetron 4 Mg Od Tab) 4 mg PO Q6H PRN PRN Reason: Nausea Stop: 01/11/22 17:56 Oxycodone HCl (Oxycodone Hcl Ir 5 Mg Tab (Immediate Release)) 5 - 10 mg PO Q4H PRN PRN Reason: Pain & Pre PT Stop: 12/26/21 17:56 Last Admin: 12/13/21 13:31 Dose: 10 mg Documented by: Pneumococcal Polyvalent Vaccine (Do Not Administer Pneumococcal Vaccine) 1 ea N/A PRN PRN PRN Reason: Notification Stop: 01/11/22 17:56 Polyethylene Glycol (Polyethylene (Miralax) 17 Gm Pack) 17 gm PO DAILY PRN PRN Reason: Constipation Stop: 01/06/22 01:46 Prednisone (Prednisone 20 Mg Tab) 20 mg PO DAILY [facility] Stop: 01/07/22 08:59 Last Admin: 12/16/21 09:16 Dose: 20 mg Documented by: Senna/Docusate Sodium (Docusate Sodium/Senna 50/8.6mg Tab) 2 tab PO HS [facility] Stop: 01/11/22 20:59 Last Admin: 12/15/21 20:55 Dose: Not Given Documented by: Sodium Biphosphate/Sodium Phosphate (Sod Phosphate/Sod Biphosphate Enema 132 Ml Btl) 132 ml WA ONE PRN PRN Reason: Constipation Stop: 01/11/22 17:56 Tramadol HCl (Tramadol Hcl 50 Mg Tablet) 50 - 100 mg PO Q4H PRN PRN Reason: Moderate-Severe pain & Pre PT Stop: 01/11/22 17:56 Valsartan (Valsartan 80 Mg Tab) 80 mg PO QDL [facility] Stop: 01/06/22 02:24 Last Admin: 12/15/21 13:18 Dose: 80 mg Documented by: Warfarin Sodium (Warfarin Sod 3 Mg Tab) 3 mg PO DAILY@1600 [facility] Stop: 01/14/22 15:59 Last Admin: 12/15/21 17:21 Dose: 3 mg Documented by:
[2021-12-16] MEDS: LIDOCAINE 5% 1 PATCH TD SCH (09:59)
[2021-12-16 10:25] LABS: Hematocrit (blood only) 40.7 % (37-47); Hemoglobin 12.7 g/dL (12.0-16.0); Mean Corpuscular Hemoglobin 24.3 pg (25-34); Mean Corpuscular Hgb Conc 31.2 g/dL (32-36); Mean Corpuscular Volume 77.8 fL (80-100); Mean Platelet Volume 10.2 fL (7.4-10.4); Platelet Count 222 K/uL (130-400); RDW Coefficient of Variation 24.9 % (11.5-14.5); RDW Standard Deviation 70.4 fL (36.4-46.3); Red Blood Count 5.23 M/uL (4.2-5.4); White Blood Count 10.48 K/uL (4.8-10.8)
[2021-12-16 10:33] LABS: INR 1.1 (0.9-1.1); Prothrombin Time 11.5 Seconds (9.0-12.0)
[2021-12-16 10:43] LABS: BUN Creatinine Ratio 24.7 (10-20); Calcium 8.3 mg/dl (8.5-10.1); Creatinine Clr Calc Pharmacy 58.4 ml/min; Est GFR (Non-African American) 63.8 ml/min; Magnesium 1.7 mg/dl (1.7-2.4); Phosphorus 2.1 mg/dl (2.5-4.9); Potassium 3.9 mmol/L (3.5-5.1)
[2021-12-16] MEDS ORDERED: MAGNESIUM SULFATE / D5W 1 GM/100 ML BAG IV ONE (12:05)
--- NOTE | 2021-12-16 12:12 | Discharge Summary ---
Date of Service December 16, 2021 Admission HPI Per Admitting Provider History obtained from patient and records. Medical history significant for PAF on Coumadin, hypertension, hyperlipidemia, Parkinson's disease, DM 2 diet-controlled, hx multiple back surgeries. Last confinement April 2021 for back pain with radiculopathy symptoms. Patient underwent back surgery. Few days history of achy low back pain. Pain coming from right leg going up. Right leg feels weak and numb. No recollection of recent trauma/fall. Achy abdominal pain of 1 month duration without other symptoms as per patient. Patient denies chest pain, SOB, headache symptoms. Denies incontinence symptoms. Patient consulted ER for worsening symptoms. Highest SBP at the ER 190s. 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 Admission Exam Per Admitting Provider GENERAL: Slightly uncomfortable, masklike facies, no respiratory distress, obese SKIN: Normal color, warm HEENT: Bespectacled, pink palpebral conjunctivae, no ptosis, dry buccal mucosa NECK : Supple, short neck, no tenderness CHEST : CTA, no tenderness HEART :RRR, systolic murmur ABDOMEN: Some distention, nontender BACK : Low back tenderness, positive straight leg raise test R EXTREMITIES : Minimal LE swelling, no LE tenderness, no other conspicuous deformities noted NEUROLOGIC : Coherent, no facial asymmetry, rest tremors, gait and stance not assessed Principal Diagnosis Thoracic myelopathy Discharge Exam General- No acute distress Head- atraumatic Eyes- PERRL, EOMI, ENT- oropharynx clear Neck- supple, no JVD Lungs- clear to auscultation Heart- regular rhythm; +systolic murmur Abdomen- normal bowel sounds, soft, nontender Extremities- no calf tenderness Neuro- alert, oriented x 3; PERRL, EOMI; no facial palsy; no dysarthria Skin- warm & dry Discharge Data Allergies Allergy/AdvReac Type Severity Reaction Status Date / Time pramipexole AdvReac Intermediate hallucinati Verified 12/06/21 23:18 ons Consultations 12/06/21 21:41 ED Decision to Admit Stat 12/06/21 23:34 Consult Orthopedic Surgery Routine Procedures Performed Operation Date: 12/12/21 12:15 Actual Procedures p T11-L1 Decompression and Fusion, Spinal Cord Monitoring(Not Applicable) - Yehuda Marcelino, Ordered Studies 12/06/21 23:18 CT abd pelvis IV con only Urgent IMPRESSION: 1. T11-T12 and T12-L1 paravertebral edema is indeterminate. Fragmentation of a right lateral T12 osteophyte is new from 04/23/2021. Correlation with the ordered same day MRI lumbar spine is recommended to exclude discitis/osteomyelitis. This finding was called/faxed to the floor at time of dictation. 2. Posterior interbody lia and screw fusion at L1-S1. 3. No bowel obstruction or bowel wall thickening. Normal appendix. 4. Nonobstructing left nephrolithiasis. 5. Additional findings as above. 12/07/21 08:38 MR lumbar spine wo con Routine IMPRESSION: 1. Markedly limited study due to patient motion artifact and imaging artifact from internal fixation. 2. No definite evidence for fracture is seen. 3. The disc space levels cannot be individually evaluated. MR thoracic spine wo con Routine IMPRESSION: 1. Severely compromised examination due to motion artifact and metallic hardware. 2. There is fluid within the T12-L1 disc space with marked marrow edema in the body of T12 and surrounding paravertebral edema. The appearance is highly suspicious for discitis/osteomyelitis. Clinical correlation will be essential. 3. No obvious epidural fluid collection is identified. This is difficult to evaluate and cannot be excluded on this examination. 4. No additional suspicious findings are seen at the remaining thoracic levels. There is no significant acquired compromise of the central canal. 12/08/21 08:38 CT thoracic spine wo con Routine IMPRESSION: 1. No acute fracture or subluxation within the lumbar spine. 2. Partially visualized lumbar spinal fusion hardware. 3. Endplate sclerosis and irregularity with vacuum phenomenon noted at the T12- L1 disc space level. There is also mild paravertebral soft tissue swelling at this level. Given the adjacent postoperative changes these findings are nonspecific and could represent chronic degenerative disc disease. A discitis/osteomyelitis could also a similar appearance in the appropriate clinical setting. This is similar to the prior MRI. 4. Partially fused vertebral bodies and facets within the mid to lower thoracic spine as described above 12/12/21 12:15 FL thoracic spine 2V Routine Hospital Course (1) Back pain: (2) Radicular pain of right lower extremity: Present on admission with worsening back pain Lumbar xray showed no acute bony abnormality is seen involving the lumbar spine. Osteopenia with postoperative and spondylotic change MRI thoracic spine showed e is fluid within the T12-L1 disc space with marked marrow edema in the body of T12 and surrounding paravertebral edema. The appearance is highly suspicious for discitis/osteomyelitis. CT thoracic spine showed endplate sclerosis and irregularity with vacuum phenomenon noted at the T12-L1 disc space level. There is also mild paravertebral soft tissue swelling at this level. Given the adjacent postoperative changes these findings are nonspecific and could represent chronic degenerative disc disease. ESR mildly elevated at 43, then trending down to 38 CRP and procalcitonin are normal Blood cx no growth Ortho-spine consulted Case discussed with Dr. Marcelino - concerned about any nerve compression Pt is now s/p thoracolumbar decompression fusion T11 and L1 (12/12), w/ Dr. Marcelino Tolerated procedure well Continue pain control INR 1.7 on 12/12, 1.2 (12/13), 1.1 (12/14) continued to hold coumadin, resumed on 12/15 IV Vit K given (12/12),prior to surgery Resumed coumadine (12/15) Continue monitor closely Hypertension BP was elevated possible due to back pain At goal now Continue BP med UTI Denies any urinary symptoms Urine cx outpatient on 12/04 grew E.coli and strep viridan group Continued Ceftriaxone, finished on 12/14 Urinary retention 12/15 - now notified patient is retaining urine, and needed straight cath x3 Placed Monet catheter, recommend to remove in next 2 days and monitor for any retention Mild leukocytosis resolved Afib rate control on metoprolol INR 1.1 this morning Received Vit K to get INR below 1.5 for procedure Discussed w/ ortho when to resume coumadin - Resumed on 12/15 DVT px SCDs , Coumadin on hold , now resumed Code status full code Outpatient cx ulture Growth 10,000 to 100,000 colonies/mL [place] a coliAbnormalAmpC Beta-lactamase producing organism. This gram negative bacilli displays in vitro resistance to multiple antibiotics.10,000 to 100,000 colonies/mL Streptococcus viridans groupAbnormal<10,000 colonies/ml mixed normal sruthi Resulting Agency: [facility]cept[facility] Escherichia coliMICROBROTH DILUTIONSAmpicillinResista ntAmpicillin/SulbactamIntermediateCefazolinResistantCefepimeSusceptibleCefoxitin IntermediateCeftriaxoneSusceptibleCiprofloxacinSusceptible1 GentamicinSusceptibleNitrofurantoinSusceptiblePiperacillin TazobactamSusceptibleTrimeth/SulfamethoxazoleSusceptible Total Time Total Time Spent Total Time Spent (In Minutes): 40 Discharge Plan Discharge Items Patient Disposition: Transfer Inpatient Rehab Fac Reason For Visit: HTN URG Discharge Diagnosis: Thoracic myelopathy Activity: As commented below Non-emergency contact: Primary Care Provider Call non-emergency contact if: you have any medication questions Follow-up/Referrals: Lori Morelos MD [Primary Care Provider] - Diet: Regular Addtl Attending Provider Instructions: ACTIVITY RECOMMENDATIONS: SELF CARE INSTRUCTIONS AFTER THORACIC/LUMBAR FUSIONS 1. You may walk to your tolerance. It is good exercise for your legs and back. Expect some back and intermittent leg aches and pains. 2. You may perform "counter-top" level activities (make a sandwich, lorenzo with a project, etc.). 3. No bending or lifting of more than 10 pounds or back twisting of any nature (roll like a log when turning in bed). 4. You may ride in a car for 20-30 minutes at a time. No driving until after your first visit with your doctor. 5. Frequent changes of position and restricting sitting to 30 minutes at a time will help limit the amount of back spasms and stiffness you may experience. 6. You may discontinue the use of ambulatory aids (cane, crutches, etc.) once your strength and confidence allow. 7. You may packing floor worker the shower and let water strike your incision when you arrive home at least once daily. Do not take a tub bath, sit in a hot tub or go into a swimming pool until after your first recheck in the office. SPECIAL CARE INSTRUCTIONS: VERY IMPORTANT TO READ AND REVIEW A. Your surgical incision has been closed with a cosmetic suture under the skin that will dissolve in about 6 weeks. In 14 days, you can use a pair of clean scissors and cut the suture that is left outside of the skin at the ends of your incision. 1. The small skin tapes can be removed 7 days after surgery if they have not fallen off by that point. 2. You may keep the wound open to air as much as possible to promote healing after post-op day number 5 unless told otherwise by your doctor. 3. If you think the wound looks like it is becoming infected (redness or worsening drainage) and/or you are experiencing fever, chill or worsening back pain and muscle spasms, contact the office so that we may evaluate you as soon as possible. B. Complications are uncommon, but please contact us if you have any signs or symptoms of: 1. wound infection (fever higher than 102.5 degrees F, redness, separation of wound, drainage, or increasing pain from the incision) 2. blood clots in legs (pain, swelling, redness and warmth in legs) 3. urinary tract infection (fever higher than 102.5 degrees F, burning upon urination or increased frequency of urination) 4. nerve problems (inability to walk on your toes or heels, numbness, loss of bowel or bladder control) 5. any other symptoms that concern you C. Please call the office at if you have any concerns or questions about your operation or recovery. D. No smoking! Smoking drastically decreases the chance of a solid fusion. E. Do not take any anti-inflammatory medications (Indocin, Advil, Motrin, Aspirin, Naprosyn, etc.) as these may inhibit the chance of a solid fusion. Tylenol is okay to take for pain. MANAGING PAIN AFTER SPINAL SURGERY 1. Narcotic medication is intended for short-term use and will be provided for surgical pain. Surgical pain usually lasts for a period of 4-6 weeks. Narcotic medication includes Percocet, Vicodin, Darvocet, Tylenol #3 or Lortab. 2. Longer-term pain is more appropriately treated with non-narcotic medication such as Tylenol ES. 3. Muscle spasm is not appropriately treated with narcotics. Muscle relaxers such as Soma, Flexeril or Skelaxin can be used along with Tylenol ES. 4. Remember that we all live with some "aches and pains". This is not unusual or uncommon after an injury or as we get older. a. Back pain is expected and may include muscle spasms for 4 to 6 weeks after surgery. The pain should gradually improve. If the pain worsens for no apparent reason, please contact the office. b. Intermittent leg pain may also be experienced and should not be concerned about unless it worsens for no apparent reason. If so, please contact the office. 5. We will provide appropriate medication within the normal guidelines of their prescribed use. We will also be very cautious and aware of potential abuse and extended duration of patients' medication needs. a. Pain medications are for your comfort and to assist with sleep and rest s o that the tissue can heal. They are not provided in order to return to normal activity and should not be used through the day. To do so or worsening pain at night can result from ongoing tissue damage and development of tolerance to the prescribed medicine. 6. Please allow 2-3 days to process refills. Prescriptions will not be mailed but must be picked up at the office. FOLLOW UP VISIT: Keep your scheduled follow-up appointment. Any questions, please call the office at . Addtl Unbundler Provider Instructions: You can remove KAVEH drain in 2 days. Monitor INR. Recommend to remove Monet catheter in about 2 days. Monitor for urinary retention. Follow-up with primary care provider within 1 week after your discharge from [facility]. Pending Studies at Discharge: No Stand-Alone Forms: My New [facility] Skilled Items Patient informed of condition?: Yes DNR: No Discharge Level of Care: Acute rehab Communicable Disease: No Discharge Prognosis: Improving Lines: None Urinary Catheter: No Medications and DC Order Prescriptions: New tramadol 50 mg tablet 50 mg PO Q6H PRN (Reason: pain, moderate) Qty: 30 RF: 0 oxycodone 5 mg tablet 5 mg PO Q6H PRN (Reason: pain, severe) Qty: 30 RF: 0 Continued docusate sodium [Col-Rite] 100 mg capsule 200 mg PO DAILY PRN (Reason: Constipation) RF: 0 atorvastatin [Lipitor] 40 mg Tablet 80 mg PO HS RF: 0 valsartan [Diovan] 80 mg Tablet 80 mg PO QDL RF: 0 lorazepam [Ativan] 0.5 mg Tablet 0.5 mg PO AMHS RF: 0 calcitriol 0.5 mcg Capsule 0.5 mcg PO QDL RF: 0 raloxifene 60 mg Tablet 60 mg PO QDL RF: 0 escitalopram oxalate [Lexapro] 10 mg Tablet 10 mg PO QAM RF: 0 cholecalciferol (vitamin D3) [Vitamin D3] 25 mcg (1,000 unit) Tablet 50 mcg PO BID RF: 0 polyethylene glycol 3350 [Miralax] 17 gram powder in packet 17 g PO UD PRN (Reason: Constipation) RF: 0 acetaminophen [Tylenol] 325 mg Tablet 650 mg PO Q4H PRN (Reason: FEVER/PAIN) RF: 0 carbidopa-levodopa 25-250 mg tablet 1 tab PO QID RF: 0 metoprolol succinate 25 mg tablet extended release 24 hr 25 mg PO QAM RF: 0 nystatin 100,000 unit/gram powder 1 applic TOPICAL TID RF: 0 Vitron-C 65 mg iron- 125 mg Tablet,Delayed Release (Dr/Ec) 1 tab PO QPM RF: 0 warfarin 3 mg tablet 3 mg PO QPM RF: 0 tramadol 50 mg tablet 100 mg PO Q8H PRN (Reason: Pain, Moderate) RF: 0 clotrimazole 1 % cream 1 applic TOPICAL BID RF: 0 baclofen 10 mg tablet 10 mg PO HS PRN (Reason: Muscle Spasm) RF: 0 ferrous sulfate 325 mg (65 mg iron) Tablet 325 mg PO DAILY RF: 0 Discharge Orders: Discharge Order (Routine); Ordered 12/16/21 Ordered By: Anurag Mendosa Admission Data Admit Date/Time: 12/09/21 09:21 Attending Provider: Anurag Mendosa Admit Provider: Clara Ibarra Primary Care Provider: Lori Morelos Other Providers: Gamal Marie ; Yehuda Marcelino ; [facility]
[2021-12-16] MEDS: VALSARTAN 80 MG TAB PO SCH (13:31)
[2021-12-16] MEDS ORDERED: MAGNESIUM OXIDE 400 MG TAB PO SCH (14:00)
== END 2021-12-16 15:56 | DRG 454 ==
LOC: 2N 15:11 → ED 15:11 → 2N 12-07 01:44 → SUATTDRO 12-09 09:21

== ENCOUNTER 2022-06-22 08:29 | Inpatient (IN) ==
--- NOTE | 2022-06-22 09:08 | Emergency Department Note ---
History of Present Illness General Chief complaint: Leg Weakness, Bilateral Time Seen by Provider: 06/22/22 08:47 Source: patient Mode of arrival: EMS Limitations: no limitations History of Present Illness This patient is a 76-year-old female who comes in with weakness. She says she woke up this morning her right leg was numb from the ankle up to the hip she also had some on her left. She feels a lot better but still has some numbness more and just her foot on that side. She has been having ongoing issues with swelling in her legs and was post to see her doctor for this today. No fall or trauma. She has history of spinal stenosis and spinal surgery in April 2020 and since then has had ongoing issues. She has no numbness weakness of face or arms. No change in vision or difficulty speaking or swallowing. She is on Coumadin for A. fib. Denies chest pain or shortness of breath she occasionally does have some dyspnea on exertion. No fever or chills no nausea or vomiting. She is been keeping up with her fluids. Her stool has been dark occasionally for a while. She has no abdominal pain but occasionally gets it in the morning this is been going on for a while. She is chronically incontinent of urine but that is unchanged she has had normal bowel movements. No numbness or weakness in her buttocks. Home Medications Medication Instructions Recorded Confirmed Type atorvastatin 40 mg tablet (Lipitor) 80 mg PO HS 01/21/20 06/22/22 History calcitriol 0.5 mcg capsule 0.5 mcg PO QDL 01/21/20 06/22/22 History cholecalciferol (vitamin D3) 25 50 mcg PO BID 01/21/20 06/22/22 History mcg (1,000 unit) tablet (Vitamin D3) escitalopram oxalate 10 mg tablet 10 mg PO QAM 01/21/20 06/22/22 History (Lexapro) lorazepam 0.5 mg tablet (Ativan) 0.5 mg PO AMHS 01/21/20 06/22/22 History raloxifene 60 mg tablet 60 mg PO QDL 01/21/20 06/22/22 History docusate sodium 100 mg capsule 200 mg PO DAILY PRN Constipation 09/12/2009/12 History (Col-Rite) polyethylene glycol 3350 17 gram 17 g PO UD PRN Constipation 09/14/20 06/22/22 History oral powder packet (Miralax) acetaminophen 325 mg tablet 650 mg PO Q4H PRN FEVER/PAIN 04/23/21 06/22/22 History (Tylenol) carbidopa 25 mg-levodopa 250 mg 1 tab PO QID 04/23/21 06/22/22 History tablet iron,carbonyl 65 mg-vitamin C 125 1 tab PO QPM 04/23/21 06/22/22 History mg tablet,delayed release (Vitron-C) metoprolol succinate 25 mg 25 mg PO QAM 04/23/21 06/22/22 History tablet,extended release 24 hr nystatin 100,000 unit/gram topical 1 applic topical TID 04/23/21 06/22/22 History powder warfarin 3 mg tablet 1.5 mg PO QPM 04/23/21 06/22/22 History baclofen 10 mg tablet 10 mg PO HS PRN Muscle Spasm 12/06/21 06/22/22 History clotrimazole 1 % topical cream 1 applic topical BID 12/06/21 06/22/22 History ferrous sulfate 325 mg (65 mg 325 mg PO DAILY 12/06/21 06/22/22 History iron) tablet gabapentin 100 mg capsule 100 mg PO TID 06/22/22 06/22/22 History valsartan 80 mg tablet 80 mg PO DAILY 06/22/22 06/22/22 History Allergies Allergy/AdvReac Type Severity Reaction Status Date / Time pramipexole AdvReac Intermediate hallucinati Verified 12/06/21 23:18 ons Past Med/Surg History Medical History Acute UTI (urinary tract infection) Anxiety Atrial fibrillation paroxysmal on warfarin CKD (chronic kidney disease) Contusion of multiple sites Depression DM type 2 (diabetes mellitus, type 2) diet controlled Fall Fall from ground level Hyperlipidemia Hypertension Obesity Osteoarthritis Parkinsons disease Rhabdomyolysis Urinary incontinence Vertigo Surgical History History of cholecystectomy lap cholecystectomy: 01/26/20: Grade 1 view, MAC#3, ETT 7 at [facility] History of incision and drainage shoulder> PT UNSURE OF DETAILS Hx of breast biopsy LEFT Hx of colonoscopy Family History Mother Atrial fibrillation Father Myocardial infarction Social History Smoking Status: Never smoker Second Hand Exposure: No; Hx Alcohol Use: No Hx Substance Use: No Preferred Language: [place] Communication Ability: Effective Process 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 Operator Required: No Beliefs That Will Affect Care: None marital status: / Current Living Situation: Alone Current Living Situation Comment: Son living with her att, but moving out Feels Safe at Home: Yes Assistive Devices: Glasses, Walker and Wheelchair Review of Systems A total of 10 systems reviewed and were otherwise negative Physical Exam Vital Signs Vital Signs - 24 hr 06/22/22 08:18 06/22/22 09:00 Temperature 36.9 C Temperature Source Oral Pulse Rate 89 Respiratory Rate 20 Respiratory Effort / Characteristics Non-Labored Spontaneous Respiratory Depth Normal Respiratory Pattern Regular Blood Pressure 172/88 H Blood Pressure Mean 116 Blood Pressure Position Lying Pulse Oximetry 97 98 Oxygen Delivery Method Room Air Room Air Sepsis Recent Fever Within 48 Hours No Sepsis New/Unexplained Change in Mental Status N/A Sepsis Action Taken by Nursing No Action Required General: Well developed well nourished older female who appears in no acute distress, breathing comfortably on room air. Normal speech HEENT: Normal cephalic atraumatic. Pupils are equal round and reactive to light. Extraocular movements are intact. Oropharynx is pink with moist mucous membranes. No swelling of the mouth lips or tongue. Neck: Supple with a midline trachea. No meningeal signs or stiffness, no JVD or bruits. No Stridor. Chest: Clear to auscultation bilaterally. No wheezes or rhonchi. No increased work of breathing. Heart: Regular rate and rhythm without murmurs or gallops. Abdomen: Soft nontender, nondistended without rebound guarding or rigidity. Extremities: No cyanosis clubbing. She does have bilateral trace to +1 lower extremity edema. No calf tenderness or assymetry. She has normal distal pulses Spine/Back. Non tender to palpation. No CVA tenderness Skin: Good turgor without rashes. Neurologic exam: Cranial nerves two through 12 are intact. Motor and sensation are intact and symmetrical throughout the face and upper extremities. She seems weak in both of her legs but more so on the right particularly when trying to extend her hip she is able to hold it but is weaker than the left. Course Administered Medications Discontinued Medications Gabapentin (Gabapentin 100 Mg Cap) 100 mg PO ONE ONE Stop: 06/22/22 11:39 Last Admin: 06/22/22 12:22 Dose: 100 mg Documented By: JARRED Gadobutrol (Gadobutrol 65ml Vial) 10.8 ml IV ONCE ONE Stop: 06/22/22 16:23 Last Admin: 06/22/22 16:23 Dose: 10.8 ml Documented By: FATOU Vancomycin HCl 2,750 mg/ (Sodium Chloride) 555 mls @ 200 mls/hr IV NOW ONE Stop: 06/22/22 15:16 Last Admin: 06/22/22 12:22 Dose: 200 mls/hr Documented By: JARRED Metoprolol Succinate (Metoprolol Succ 25mg Ext Rel Tab) 25 mg PO NOW STA Stop: 06/22/22 11:38 Last Admin: 06/22/22 12:22 Dose: 25 mg Documented By: JARRED Valsartan (Valsartan 80 Mg Tab) 80 mg PO NOW STA Stop: 06/22/22 11:39 Last Admin: 06/22/22 12:34 Dose: Not Given Documented By: JARRED Medical Decision Making Differential Diagnosis Weakness, spinal stenosis, edema, cardiac disease, central neurologic process, arrhythmia, anemia, infection, cardiac disease, stroke Medical Records Attestation: I reviewed the patient's medical records. Home Medications Current Medication List: was personally reviewed by me Laboratory Data Attestation: I reviewed the patient's lab results. Result diagrams: 06/22/22 08:49 06/22/22 08:49 Lab Results 06/22/22 06/22/22 06/22/22 Range/Units 08:49 08:49 08:49 WBC 4.83 (4.8-10.8) K/ul RBC 5.06 (3.93-5.22) M/uL Hgb 14.0 (12.0-16.0) g/dl Hct 43.2 (34.1-44.9) % MCV 85.4 (80.0-100.0) fL MCH 27.7 (25.0-34.0) pg MCHC 32.4 (32.0-36.0) g/dL RDW Std Deviation 48.8 H (36.4-46.3) fL RDW Coeff of Ratna 15.7 H (11.5-14.5) % Plt Count 170 (130-400) K/uL MPV 10.8 (9.4-12.3) fL Immature Gran % (Auto) 0.2 % Neut % (Auto) 64.0 % Lymph % (Auto) 19.5 % [place] % (Auto) 12.8 % Eos % (Auto) 2.9 % Baso % (Auto) 0.6 % Neut # (Auto) 3.09 (1.4-6.5) K/uL Lymph # (Auto) 0.94 L (1.2-3.4) K/uL [place] # (Auto) 0.62 (0.24-0.82) K/uL Eos # (Auto) 0.14 (0-0.50) K/uL Baso # (Auto) 0.03 (0-0.2) K/uL Immature Gran # (Auto) 0.01 (0.00-0.02) K/uL PT 22.4 H (9.0-12.0) Seconds INR 2.2 H (0.9-1.1) Sodium 144 (136-145) mmol/L Potassium 3.6 (3.5-5.1) mmol/L Chloride 107 (98-107) mmol/L Carbon Dioxide 29 (21-32) mmol/L Anion Gap 8 (3-11) BUN 14 (6-23) mg/dl Creatinine 0.99 (0.6-1.2) mg/dl Est Cr Clr Drug Dosing 58.0 ml/min Est GFR ( Amer) 65.1 ml/min Est GFR (Non-Af Amer) 56.1 ml/min BUN/Creatinine Ratio 14.1 (10-20) Glucose 104 H (70-99(Fasting)) mg/dl Calcium 8.8 (8.5-10.1) mg/dl Magnesium 1.8 (1.7-2.4) mg/dl Total Bilirubin 1.3 H (0.2-1.0) mg/dl AST 17 (13-39) U/L ALT 12 (7-52) U/L Alkaline Phosphatase 95 (34-104) U/L Troponin I High Sens 8.6 (0-14) pg/ml Total Protein 6.4 (6.0-8.3) gm/dl Albumin 3.5 (3.4-5.0) gm/dl Globulin 2.9 (2.5-4.0) gm/dl Albumin/Globulin Ratio 1.2 (0.9-2) TSH (0.300-4.500) uIu/ml SARS-CoV-2, RNA, NAAT (NEGATIVE) 06/22/22 06/22/22 Range/Units 08:49 08:49 WBC (4.8-10.8) K/ul RBC (3.93-5.22) M/uL Hgb (12.0-16.0) g/dl Hct (34.1-44.9) % MCV (80.0-100.0) fL MCH (25.0-34.0) pg MCHC (32.0-36.0) g/dL RDW Std Deviation (36.4-46.3) fL RDW Coeff of Ratna (11.5-14.5) % Plt Count (130-400) K/uL MPV (9.4-12.3) fL Immature Gran % (Auto) % Neut % (Auto) % Lymph % (Auto) % [place] % (Auto) % Eos % (Auto) % Baso % (Auto) % Neut # (Auto) (1.4-6.5) K/uL Lymph # (Auto) (1.2-3.4) K/uL [place] # (Auto) (0.24-0.82) K/uL Eos # (Auto) (0-0.50) K/uL Baso # (Auto) (0-0.2) K/uL Immature Gran # (Auto) (0.00-0.02) K/uL PT (9.0-12.0) Seconds INR (0.9-1.1) Sodium (136-145) mmol/L Potassium (3.5-5.1) mmol/L Chloride (98-107) mmol/L Carbon Dioxide (21-32) mmol/L Anion Gap (3-11) BUN (6-23) mg/dl Creatinine (0.6-1.2) mg/dl Est Cr Clr Drug Dosing ml/min Est GFR ( Amer) ml/min Est GFR (Non-Af Amer) ml/min BUN/Creatinine Ratio (10-20) Glucose (70-99(Fasting)) mg/dl Calcium (8.5-10.1) mg/dl Magnesium (1.7-2.4) mg/dl Total Bilirubin (0.2-1.0) mg/dl AST (13-39) U/L ALT (7-52) U/L Alkaline Phosphatase (34-104) U/L Troponin I High Sens (0-14) pg/ml Total Protein (6.0-8.3) gm/dl Albumin (3.4-5.0) gm/dl Globulin (2.5-4.0) gm/dl Albumin/Globulin Ratio (0.9-2) TSH 2.135 (0.300-4.500) uIu/ml SARS-CoV-2, RNA, NAAT NEGATIVE (NEGATIVE) Imaging Data Attestation: I personally reviewed and interpreted this imaging study as follows: My Impression: Chest x-raythere is no infiltrate but there is opacity in the right upper lung, questionable uncertainty. No pneumothorax or CHF Head CTno acute hemorrhage or mass-effect seen. Radiologist's Impression: Chest X-Ray 06/22/22 09:00 XR chest 1V portable CLINICAL HISTORY: Weakness. COMPARISON STUDY: Chest radiograph December 13, 2021. FINDINGS: Postoperative findings within the spine are partially imaged. Cardiomegaly is unchanged. There is no evidence for pulmonary edema. Linear opacity along the left heart border is unchanged. This favors atelectasis or scarring. A 2.9 cm nodular opacity within the right mid to upper lung is new since prior exam. No additional airspace opacities are present. No pneumothorax or pleural effusion. IMPRESSION: 2.9 cm nodular airspace opacity within the right mid to upper lung. This is new since prior chest radiograph and may reflect a focus of pneumonia. A pulmonary nodule could appear similar. Therefore, follow-up PA and lateral chest radiographs in one month to ensure resolution are recommended. ACT 112: Positive. There are findings on this exam that require communication between the performing entity and the patient following Patient Test Result Information Act ([place] Act 112) guidelines. Electronically signed by: Jamil Barbour M.D. 06/22/2022 9:[address] 06/22/22 09:00 CT head/brain wo con CLINICAL HISTORY: 76 years-old Female with weakness in legs r>l. Acute strokelike symptoms TECHNIQUE: Multiple axial CT images of the head were obtained without contrast. A dose lowering technique was utilized adhering to the principles of ALARA. CT DOSE: 1381.76 mGy.cm COMPARISON: Head CT 07/09/2021 FINDINGS: Motion degraded exam. No acute intracranial hemorrhage, midline shift, intracranial mass, hydrocephalus, territorial ischemia or abnormal extra-axial collection. Age-related involutional changes. White matter hypodensities suggestive of chronic microvascular ischemic disease. The calvarium is intact. The paranasal sinuses, mastoid air cells, and middle ear cavities are clear. Prior bilateral lens repair. IMPRESSION: No acute intracranial abnormality. ACT 112: Negative or not required by law. The above report was generated using voice recognition software. It may contain grammatical, syntax or spelling errors. Electronically signed by: Robert Restrepo M.D. 06/22/2022 9:32 AM ECG Data Attestation: I personally reviewed and interpreted this ECG as follows: Indication: + weakness Rate (beats per minute): 86 Rhythm: + atrial fibrillation ECG Intervals/blocks: + Normal QRS and + Normal QT ECG [place]: + Normal ECG ST segments: + Normal ST segments ECG Findings: no PACs or no PVCs Comparison ECG Date: from (04/23/21) Change: no significant change MDM Narrative This patient comes in as described above. She has been having ongoing issues with her legs with swelling and numbness. This morning the most of the right le g was numb now its almost completely resolved she still is weak. She has some ongoing issues since having spinal surgery. I do not think this is likely central neurologic. Even if this was a stroke, she woke up this way and also is on Coumadin which would be reasons not to give thrombolytics at this point and her symptoms also gotten significantly better. IV X established EKG was obtained multiple blood testing was obtained I did a CAT scan of her head. She was reassessed frequently. While I was examining her on the monitor was seen artifact versus V. tach. She was asymptomatic with this and was further observed and a cardiac work-up was obtained. She does have a tremor with movement I suspect it was artifactual. EKG was unremarkable. Troponin is not elevated. She has no significant white count or fever discussed infection she is nursing electrolyte or metabolic abnormalities. CAT scan of her head is unremarkable. I think this is most likely related to her back rather than a central neurologic process but she seems to be more numb and weak than normal and I do think needs to be admitted for further treatment and evaluation. She does not feel she can safely go home. [facility] Continuous monitor worker: Orders placed in EMR for continuous cardiac monitoring. 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
[2022-06-22 09:27] LABS: Basophils # (auto) 0.03 K/uL (0-0.2); Basophils % (auto) 0.6 %; Eosinophils # (auto) 0.14 K/uL (0-0.50); Eosinophils % (auto) 2.9 %; Hematocrit (blood only) 43.2 % (34.1-44.9); Immature Granulocytes # (auto) 0.01 K/uL (0.00-0.02); Immature Granulocytes % (auto) 0.2 %; Lymphocytes # (auto) 0.94 K/uL (1.2-3.4); Lymphocytes % (auto) 19.5 %; Mean Corpuscular Hemoglobin 27.7 pg (25.0-34.0); Mean Corpuscular Hgb Conc 32.4 g/dL (32.0-36.0); Mean Corpuscular Volume 85.4 fL (80.0-100.0); Mean Platelet Volume 10.8 fL (9.4-12.3); Monocytes # (auto) 0.62 K/uL (0.24-0.82); Monocytes % (auto) 12.8 %; Neutrophils # (auto) 3.09 K/uL (1.4-6.5); Platelet Count 170 K/uL (130-400); RDW Coefficient of Variation 15.7 % (11.5-14.5); RDW Standard Deviation 48.8 fL (36.4-46.3); Red Blood Count 5.06 M/uL (3.93-5.22); White Blood Count 4.83 K/ul (4.8-10.8)
--- NOTE | 2022-06-22 09:34 | CT Scan Report ---
CT head/brain wo con CLINICAL HISTORY: 76 years-old Female with weakness in legs r>l. Acute strokelike symptoms TECHNIQUE: Multiple axial CT images of the head were obtained without contrast. A dose lowering tech nique was utilized adhering to the principles of ALARA. CT DOSE: 1381.76 mGy.cm COMPARISON: Head CT 07/09/2021 FINDINGS: Motion degraded exam. No acute intracranial hemorrhage, midline shift, intracranial mass, hydrocephal us, territorial ischemia or abnormal extra-axial collection. Age-related involutional changes. White matter hypodensities suggestive of chronic microvascular ischemic disease. The calvarium is intact. T he paranasal sinuses, mastoid air cells, and middle ear cavities are clear. Prior bilateral lens repa ir. IMPRESSION: No acute intracranial abnormality. ACT 112: Negative or not required by law. The above report was generated using voice recognition software. It may contain grammatical, syntax o r spelling errors. Electronically signed by: Robert Restrepo M.D. 06/22/2022 9:32 AM
[2022-06-22 09:36] LABS: INR 2.2 (0.9-1.1); Prothrombin Time 22.4 Seconds (9.0-12.0)
[2022-06-22 09:37] LABS: Albumin Globulin Ratio 1.2 (0.9-2); Albumin Level 3.5 gm/dl (3.4-5.0); BUN Creatinine Ratio 14.1 (10-20); Bilirubin,Total 1.3 mg/dl (0.2-1.0); Calcium 8.8 mg/dl (8.5-10.1); Est GFR (African American) 65.1 ml/min; Est GFR (Non-African American) 56.1 ml/min; Globulin 2.9 gm/dl (2.5-4.0); Magnesium 1.8 mg/dl (1.7-2.4); Potassium 3.6 mmol/L (3.5-5.1); Total Protein 6.4 gm/dl (6.0-8.3)
[2022-06-22 09:39] LABS: Troponin I High Sensitivity 8.6 pg/ml (0-14)
--- NOTE | 2022-06-22 10:00 | XRay Report ---
XR chest 1V portable CLINICAL HISTORY: Weakness. COMPARISON STUDY: Chest radiograph December 13, 2021. FINDINGS: Postoperative findings within the spine are partially imaged. Cardiomegaly is unchanged. Th ere is no evidence for pulmonary edema. Linear opacity along the left heart border is unchanged. This favors atelectasis or scarring. A 2.9 cm nodular opacity within the right mid to upper lung is new s caren prior exam. No additional airspace opacities are present. No pneumothorax or pleural effusion. IMPRESSION: 2.9 cm nodular airspace opacity within the right mid to upper lung. This is new since pr ior chest radiograph and may reflect a focus of pneumonia. A pulmonary nodule could appear similar. T herefore, follow-up PA and lateral chest radiographs in one month to ensure resolution are recommende d. ACT 112: Positive. There are findings on this exam that require communication between the performing entity and the patient following Patient Test Result Information Act ([place] Act 112) guidelines. Electronically signed by: Jamil Barbour M.D. 06/22/2022 9:59 AM
--- NOTE | 2022-06-22 11:01 | History & Physical Report ---
Date of Service June 22, 2022 Assessment & Plan (1) Cellulitis: (2) Weakness: Plan: - Admit to medr with tele - Afebrile and without wbc. Skin on BLE is erythematous and warm extending up to the mid [place] region. Nails with onychomycosis and dry skin, poor nail hygiene. DM a contributor to infection. - IV vanc x 1 dose now, obtain MRSA swab, will downgrade if negative - Edema within the past 3 days likely due to acute infection +/- fluid retention. -Will obtain Echo 2 D to evaluate with hx of afib. Pt denies any shortness of breath or cardiac complaints. Denies orthopnea, sleeping flat with 1 pillow in bed. - Pt is on valsartan 80 mg daily, possible that this could cause worsening fluid retention so will hold - Pt missed AM meds today, will allow metoprolol succinate now, along with gapabentin for pain relief. Pt notes she does not normally take gabapentin at home but is willing to trial here in the hospital (3) DM type 2 (diabetes mellitus, type 2): Plan: - Last A1C 6.0 from 2019, will repeat with am labs - ISS with accuchecks achs (4) Atrial fibrillation: Plan: - echo as above - Rate controlled with metoprolol succinate - Continue coumadin, INR on admission was 2.2, follow am labs - Unlikely DVT with being therapeutic to high on coumadin with calf pain noted. Likely neuropathic pain worsened with edema. (5) Hypertension: Plan: - Medications as above (6) Parkinsons disease: Plan: - Hx of such, walks with walker and uses wheelchair - PT/OT consults - Cont carbidopa levadopa - Fall precautions, easy to chew diet DVT PPx: scds, coumadin CODE: FULL code Dispo: From home, likely to remain in the hospital 1-2 days History of Present Illness Chief Complaint: Leg pain and swelling Primary Care Provider: Lori Morelos MD This is a 76-year-old female with PMHx of A. fib on Coumadin, HTN, HLD, obesity with BMI 44.0, history of spinal surgery, CKD, Parkinson's disease, urinary incontinence, DM type II who presents to the hospital with worsening pain and edema of her feet bilaterally for the last 3 days. She woke up this morning and noticed that she was slightly numb on her right hip, and had increased pain in her left thigh. She continues to have pain in her lower feet as well and has be en attempting to sleep with her legs elevated as she has a hospital bed at home. She denies any other focal symptoms including slurred speech, confusion, other motor deficits or other sensory deficits. The right leg numbness is resolved at this point. She has no decreased sensation on right compared to left leg on exam. She also mentions that her INR was 2.5 yesterday, and she took a 3 mg Coumadin tablet last evening as she is regularly instructed to do so Saturday, , Saturday. She alternates dose with 1.5 mg on all other days. She lives at home with her son. Allergies Allergy/AdvReac Type Severity Reaction Status Date / Time pramipexole AdvReac Intermediate hallucinati Verified 12/06/21 23:18 ons Home Medications Medication Instructions Recorded Confirmed Type atorvastatin 40 mg tablet (Lipitor) 80 mg PO HS 01/21/20 06/22/22 History calcitriol 0.5 mcg capsule 0.5 mcg PO QDL 01/21/20 06/22/22 History cholecalciferol (vitamin D3) 25 50 mcg PO BID 01/21/20 06/22/22 History mcg (1,000 unit) tablet (Vitamin D3) escitalopram oxalate 10 mg tablet 10 mg PO QAM 01/21/20 06/22/22 History (Lexapro) lorazepam 0.5 mg tablet (Ativan) 0.5 mg PO AMHS 01/21/20 06/22/22 History raloxifene 60 mg tablet 60 mg PO QDL 01/21/20 06/22/22 History docusate sodium 100 mg capsule 200 mg PO DAILY PRN Constipation 09/12/20 06/22/22 History (Col-Rite) polyethylene glycol 3350 17 gram 17 g PO UD PRN Constipation 09/14/20 06/22/22 History oral powder packet (Miralax) acetaminophen 325 mg tablet 650 mg PO Q4H PRN FEVER/PAIN 04/23/21 06/22/22 History (Tylenol) carbidopa 25 mg-levodopa 250 mg 1 tab PO QID 04/23/21 06/22/22 History tablet iron,carbonyl 65 mg-vitamin C 125 1 tab PO QPM 10/03/21 12/02/22 History mg tablet,delayed release (Vitron-C) metoprolol succinate 25 mg 25 mg PO QAM 04/23/21 06/22/22 History tablet,extended release 24 hr nystatin 100,000 unit/gram topical 1 applic topical TID 04/23/21 06/22/22 History powder warfarin 3 mg tablet 1.5 mg PO QPM 04/23/21 06/22/22 History baclofen 10 mg tablet 10 mg PO HS PRN Muscle Spasm 12/06/21 06/22/22 History clotrimazole 1 % topical cream 1 applic topical BID 12/06/21 06/22/22 History ferrous sulfate 325 mg (65 mg 325 mg PO DAILY 12/06/21 06/22/22 History iron) tablet gabapentin 100 mg capsule 100 mg PO TID 06/22/22 06/22/22 History valsartan 80 mg tablet 80 mg PO DAILY 06/22/22 06/22/22 History Past Med/Surg History Medical History Acute UTI (urinary tract infection) Anxiety Atrial fibrillation paroxysmal on warfarin CKD (chronic kidney disease) Contusion of multiple sites Depression DM type 2 (diabetes mellitus, type 2) diet controlled Fall Fall from ground level Hyperlipidemia Hypertension Obesity Osteoarthritis Parkinsons disease Rhabdomyolysis Urinary incontinence Vertigo Surgical History History of cholecystectomy lap cholecystectomy: 01/26/20: Grade 1 view, MAC#3, ETT 7 at [facility] History of incision and drainage shoulder> PT UNSURE OF DETAILS Hx of breast biopsy LEFT Hx of colonoscopy Family History Mother Atrial fibrillation Father Myocardial infarction Social History Smoking Status: Never smoker Second Hand Exposure: No; Hx Alcohol Use: No Hx Substance Use: No Preferred Language: Kyrgyz Communication Ability: Effective Fan Blade Aligner Required: No Beliefs That Will Affect Care: None marital status: / Current Living Situation: Alone Current Living Situation Comment: Son living with her att, but moving out Feels Safe at Home: Yes Assistive Devices: Glasses, Walker and Wheelchair Review of Systems Review of Systems: Constitutional: No fever, sweats or chills Eyes: No diplopia, no worsening or blurred vision ENT: normal hearing, no trouble swallowing Respiratory: No cough, sputum, dyspnea at rest or on exertion, sleeping lying flat with one pillow Cardiovascular: No chest pain, tightness or palpitations Abdomen: No pain, nausea, vomiting, diarrhea or constipation Musculoskeletal: Left-sided thigh pain, no joint pain, no acute calf pain, + bilateral feet and ankle swelling Neurologic: As per HPI with right-sided leg numbness now resolved, otherwise no weakness, numbness/tingling, or balance problems Psychiatric: No anxiety or depression Skin: No rash or itch Physical Exam Physical Exam: General: awake, alert, obese, BMI of 44.0 Head: Normocephalic, atraumatic ENT: PERRL, EOMI, no pharyngeal exudate, mucous membranes moist Chest: Clear to auscultation, on room air, no adventitious breath sounds Cardiac: Irregularly irregular, systolic murmur with radiation to the carotids, rate controlled, no JVD, normal peripheral pulses, good capillary refill Abdominal: NABS x 4 quadrants, soft, nondistended, nontender to palpation, no rebound or guarding Extremities: Right and left feet and ankles with peripheral edema and erythema, + warmth, no numbness to sensation of the right leg or the left, calfs tender to palpation bilaterally Psych: Normal mood and affect Neuro: AAO x 3, strength intact bilaterally and rated 3/5 in lower extremities, rated 5/5 in upper, no motor deficits, speech is clear, no peripheral sensory deficits Results & Data Results & Data ([facility]) Vital Signs (Past 12 Hours) Vital Signs Temp Pulse Resp BP Pulse Ox O2 Del Method 06/22/22 09:00 98 Room Air 06/22/22 08:18 36.9 C 89 20 172/88 H 97 Room Air Laboratory Results 06/22/22 06/22/22 06/22/22 08:49 08:49 08:49 WBC RBC Hgb Hct MCV MCH MCHC RDW Std Deviation RDW Coeff of Ratna Plt Count MPV Immature Gran % (Auto) Neut % (Auto) Lymph % (Auto) [place] % (Auto) Eos % (Auto) Baso % (Auto) Neut # (Auto) Lymph # (Auto) [place] # (Auto) Eos # (Auto) Baso # (Auto) Immature Gran # (Auto) PT INR Sodium 144 Potassium 3.6 Chloride 107 Carbon Dioxide 29 Anion Gap 8 BUN 14 Creatinine 0.99 Est Cr Clr Drug Dosing 58.0 Est GFR ( Amer) 65.1 Est GFR (Non-Af Amer) 56.1 BUN/Creatinine Ratio 14.1 Glucose 104 H Calcium 8.8 Magnesium 1.8 Total Bilirubin 1.3 H AST 17 ALT 12 Alkaline Phosphatase 95 Troponin I High Sens 8.6 Total Protein 6.4 Albumin 3.5 Globulin 2.9 Albumin/Globulin Ratio 1.2 TSH 2.135 SARS-CoV-2, RNA, NAAT NEGATIVE 06/22/22 06/22/22 08:49 08:49 WBC 4.83 RBC 5.06 Hgb 14.0 Hct 43.2 MCV 85.4 MCH 27.7 MCHC 32.4 RDW Std Deviation 48.8 H RDW Coeff of Ratna 15.7 H Plt Count 170 MPV 10.8 Immature Gran % (Auto) 0.2 Neut % (Auto) 64.0 Lymph % (Auto) 19.5 [place] % (Auto) 12.8 Eos % (Auto) 2.9 Baso % (Auto) 0.6 Neut # (Auto) 3.09 Lymph # (Auto) 0.94 L [place] # (Auto) 0.62 Eos # (Auto) 0.14 Baso # (Auto) 0.03 Immature Gran # (Auto) 0.01 PT 22.4 H INR 2.2 H Sodium Potassium Chloride Carbon Dioxide Anion Gap BUN Creatinine Est Cr Clr Drug Dosing Est GFR ( Amer) Est GFR (Non-Af Amer) BUN/Creatinine Ratio Glucose Calcium Magnesium Total Bilirubin AST ALT Alkaline Phosphatase Troponin I High Sens Total Protein Albumin Globulin Albumin/Globulin Ratio TSH SARS-CoV-2, RNA, NAAT Diagnostic Findings Chest X-Ray 06/22/22 09:00 XR chest 1V portable CLINICAL HISTORY: Weakness. COMPARISON STUDY: Chest radiograph December 13, 2021. FINDINGS: Postoperative findings within the spine are partially imaged. Cardiomegaly is unchanged. There is no evidence for pulmonary edema. Linear opacity along the left heart border is unchanged. This favors atelectasis or scarring. A 2.9 cm nodular opacity within the right mid to upper lung is new since prior exam. No additional airspace opacities are present. No pneumothorax or pleural effusion. IMPRESSION: 2.9 cm nodular airspace opacity within the right mid to upper lung. This is new since prior chest radiograph and may reflect a focus of pneumonia. A pulmonary nodule could appear similar. Therefore, follow-up PA and lateral chest radiographs in one month to ensure resolution are recommended. ACT 112: Positive. There are findings on this exam that require communication between the performing entity and the patient following Patient Test Result Information Act ([place] Act 112) guidelines. Electronically signed by: Jamil Barbour M.D. 06/22/2022 9:[address] 06/22/22 09:00 CT head/brain wo con CLINICAL HISTORY: 76 years-old Female with weakness in legs r>l. Acute strokelike symptoms TECHNIQUE: Multiple axial CT images of the head were obtained without contrast. A dose lowering technique was utilized adhering to the principles of ALARA. CT DOSE: 1381.76 mGy.cm COMPARISON: Head CT 07/09/2021 FINDINGS: Motion degraded exam. No acute intracranial hemorrhage, midline shift, intracranial mass, hydrocephalus, territorial ischemia or abnormal extra-axial collection. Age-related involutional changes. White matter hypodensities suggestive of chronic microvascular ischemic disease. The calvarium is intact. The paranasal sinuses, mastoid air cells, and middle ear cavities are clear. Prior bilateral lens repair. IMPRESSION: No acute intracranial abnormality. ACT 112: Negative or not required by law. The above report was generated using voice recognition software. It may contain grammatical, syntax or spelling errors. Electronically signed by: Robert Restrepo M.D. 06/22/2022 9:32 AM Code Status & VTE Plan Code Status Full code - discussed with the patient at bedside Supervising Physician Co-Signing Physician Notes Care coordinated with Josey Valencia PA-C. Agree with able note. Patient seen and examined. Please refer to her notes for full details. Vital signs reviewed. Physical exam: General exam: Alert and oriented. Not in acute distress. CVS: S1 and S2 heard, regular rate and rhythm, no murmurs. RS: Clear to auscultation, no wheezing or crackles. ABD: Soft, bowel sounds present, nontender, no distention. SPINDLE SETTER: alert and oriented, speech clear, coordination movements normal. sensations intact Weakness in right lower extremity? EXT: b/l lower extremity edema present, mild erythematous changes Labs: Reviewed. Assessment and plan: 76F with hx of DM, PAF on coumadin, CKD 3,Parkinsons disease presents with right lower extremity numbness and weakness since she woke up today morning. She was not able to gt up fron bed beacuse of these symptoms. Last night she was ok. Denies any fevers. No chest pain or sob. Hemodynamics ok Right lower extremity weakness, numbness and pain MRI brain and mri lumbar spine unrmarkable. Lumbar mri Essentially nondiagnostic examination due to severe metallic artifact from extensive spinal hardware Hx of parkisnons will consult neurology and orthopedics close monitor pt/ot when stable b/l lower extremity edema possible cellulitis on rocephin also will follow echo. Other diagnosis and plan of care as per Josey Valencia PA-C. Rah mary MD.
[2022-06-22] MEDS ORDERED: METOPROLOL SUCC 25MG EXT REL TAB PO STA (11:37)
[2022-06-22] MEDS ORDERED: VALSARTAN 80 MG TAB PO STA (11:38)
[2022-06-22] MEDS ORDERED: GABAPENTIN 100 MG CAP PO ONE (11:38)
[2022-06-22] MEDS ORDERED: VANCOMYCIN CONSULT ACTIVE PRN (11:41)
[2022-06-22] MEDS ORDERED: VANCOMYCIN HCL 2,750 MG in SODIUM CHLORIDE 0.9% 500 ML IV ONE (12:30)
[2022-06-22] MEDS ORDERED: GLUCOSE 10 TAB/TUBE PO PRN (12:53)
[2022-06-22] MEDS ORDERED: GLUCOSE 40% GEL 15 GM TUBE PO PRN (12:53)
[2022-06-22] MEDS ORDERED: CARBOHYDRATES FOR HYPOGLYCEMIA PO PRN (12:53)
[2022-06-22] MEDS ORDERED: POLYETHYLENE (MIRALAX) 17 GM PACK PO PRN (12:53)
[2022-06-22] MEDS ORDERED: GLUCAGON FOR INJ 1 MG VIAL SQ PRN (12:53)
[2022-06-22] MEDS ORDERED: DEXTROSE 50% 50 ML SYRINGE IV PRN (12:53)
[2022-06-22] MEDS ORDERED: DOCUSATE SODIUM 100 MG CAP PO PRN (12:53)
[2022-06-22] MEDS ORDERED: ONDANSETRON INJ 2 MG/ML 2 ML VIAL IV PRN (12:53)
[2022-06-22] MEDS ORDERED: GADOBUTROL 65ML VIAL IV ONE (16:22)
--- NOTE | 2022-06-22 17:12 | Magnetic Resonance Report ---
MRI OF THE BRAIN COMBO CLINICAL HISTORY: Right lower extremity weakness. COMPARISON STUDY: CT of the brain dated 06/22/2022. TECHNIQUE: MRI of the brain was performed utilizing various T1 and T2-weighted sequences in the axial , sagittal, and coronal planes. Contrast-enhanced sequences were acquired following the administratio n of 10.8 cc of Gadavist. FINDINGS: Brain parenchyma: There is age-related involutional change noting mild patchy subcortical and periven tricular microangiopathic disease. There is no hemorrhage or mass effect. There is no restricted diff usion to suggest acute ischemia. No enhancing mass lesion is identified on the postcontrast images. G ray-white matter differentiation is preserved. No extra-axial fluid collection is seen. The cerebella r tonsils are normal in configuration. Ventricles, sulci, and cisterns: Prominent secondary to involutional change. Pituitary and sella: Unremarkable. Intracranial vasculature: Normal flow voids are maintained at the skull base. Orbits: The bony orbits are grossly intact. Orbital contents are normal in appearance noting bilatera l ocular lens implants. Sinuses and mastoids: Clear. Calvarium: Unremarkable. Cervical cord: Partially visualized cervical spinal cord is normal in morphology and signal intensity . IMPRESSION: No acute intracranial abnormality. ACT 112: Negative or not required by law. Electronically signed by: Omar Hill M.D. 06/22/2022 5:10 PM
--- NOTE | 2022-06-22 17:20 | Magnetic Resonance Report ---
MRI OF LUMBAR SPINE COMBO CLINICAL HISTORY: Right lower extremity weakness. COMPARISON STUDY: MRI of the lumbar spine dated 12/07/2021. CT lumbar spine dated 04/23/2021. TECHNIQUE: MRI of the lumbar spine is attempted utilizing various T1 and T2 sequences in the axial an d sagittal planes. Contrast-enhanced sequences were acquired following the IV administration of 10.8 cc of Gadavist. The examination is severely degraded by susceptibility artifact from extensive metall ic spinal hardware. This degrades diagnostic utility. FINDINGS: Vertebral body height and alignment are grossly maintained throughout the lumbar spine. The re is extensive postsurgical change from laminectomy and posterior fusion throughout the lumbar spine . This extends from T11 to S1. Ventricular screws are present at all levels with the exception of L5. This severely degrades evaluation of the central canal and neural foramina which are not diagnostica lly assessed. The disc spaces are not diagnostically evaluated. There is marked fatty atrophy of the paraspinous musculature. Postsurgical surgical change is seen posterior to the thecal sac. The visual ized sacrum appears intact. IMPRESSION: 1. Essentially nondiagnostic examination due to severe metallic artifact from extensive spinal hardwa re. The central canal and neural foramina cannot be diagnostically evaluated. 2. Vertebral body height and alignment are grossly maintained. Electronically signed by: Omar Hill M.D. 06/22/2022 5:18 PM
[2022-06-22] MEDS: CARBIDOPA/LEVODOPA 25-250 1 EA TAB PO SCH ×2 (17:29→20:18)
[2022-06-22] MEDS: CHOLECALCIFEROL 1,000 UNITS 25 MCG TAB PO SCH ×2 (17:30→20:17)
[2022-06-22] MEDS: WARFARIN SOD 0.5 MG TAB PO SCH (17:30)
[2022-06-22] MEDS: ESCITALOPRAM OXALATE 10 MG TAB PO SCH (17:30)
[2022-06-22] MEDS: INSULIN ASPART PER UNIT SC SCH ×2 (19:41→20:19)
[2022-06-22] MEDS: cefTRIAXone SODIUM 2,000 MG in DEXTROSE 5% AD-VAN 50 ML IV SCH (19:41)
--- NOTE | 2022-06-22 20:08 | Electrocardiogram Report ---
Test Reason : Blood Pressure : / mmHG Vent. Rate : 086 BPM Atrial Rate : 090 BPM P-R Int : 000 ms QRS Dur : 086 ms QT Int : 368 ms P-R-T Axes : 000 061 021 degrees QTc Int : 440 ms Atrial fibrillation Low voltage QRS Abnormal ECG When compared with ECG of 23-APR-2021 03:07, No significant change was found Confirmed by Aydin Phillips ([id number]) on 06/22/2022 8:07:44 PM Referred By: Lori Morelos Confirmed By:Ranjan Phillips
[2022-06-22] MEDS: GABAPENTIN 100 MG CAP PO SCH (20:18)
[2022-06-22] MEDS: ATORVASTATIN 40 MG TAB PO SCH (20:18)
[2022-06-22] MEDS: CLOTRIMAZOLE 1% CR 15 GM TUBE TOP SCH (20:19)
[2022-06-22] MEDS: LORazepam 0.5 MG TAB PO SCH (20:20)
[2022-06-22] MEDS: ACETAMINOPHEN 325 MG TAB PO PRN (20:20)
[2022-06-22] MEDS: BACLOFEN 10 MG TAB PO PRN (23:02)
[2022-06-23 05:40] LABS: Appearance Urine Cloudy (Clear); Bacteria Urine Automated 2+ (Negative); Bilirubin Urine Negative (Negative); Blood Urine 1+ (Negative); Color Urine Yellow; Glucose Urine UA Negative (Negative); Ketones Urine Trace (Negative); Leukocyte Esterase Urine 3+ (Negative); Nitrite Urine Positive (Negative); Protein Urine Trace (Negative); Urobilinogen Urine Negative (Negative); WBC Urine Automated >30 /hpf (0-5)
[2022-06-23] MEDS: INSULIN ASPART PER UNIT SC SCH ×4 (05:49→20:18)
[2022-06-23 08:44] LABS: Hematocrit (blood only) 41.3 % (34.1-44.9); Hemoglobin 13.2 g/dl (12.0-16.0); Mean Corpuscular Hemoglobin 27.2 pg (25.0-34.0); Mean Corpuscular Volume 85.2 fL (80.0-100.0); Mean Platelet Volume 10.4 fL (9.4-12.3); Platelet Count 153 K/uL (130-400); RDW Coefficient of Variation 15.9 % (11.5-14.5); RDW Standard Deviation 49.6 fL (36.4-46.3); Red Blood Count 4.85 M/uL (3.93-5.22)
[2022-06-23] MEDS: CHOLECALCIFEROL 1,000 UNITS 25 MCG TAB PO SCH ×2 (08:44→20:17)
[2022-06-23] MEDS: CLOTRIMAZOLE 1% CR 15 GM TUBE TOP SCH ×2 (08:44→20:17)
[2022-06-23] MEDS: METOPROLOL SUCC 25MG EXT REL TAB PO SCH (08:44)
[2022-06-23] MEDS: CARBIDOPA/LEVODOPA 25-250 1 EA TAB PO SCH ×4 (08:45→20:17)
[2022-06-23] MEDS: GABAPENTIN 100 MG CAP PO SCH ×3 (08:45→20:17)
[2022-06-23] MEDS: ESCITALOPRAM OXALATE 10 MG TAB PO SCH (08:46)
[2022-06-23] MEDS: FERROUS SULFATE 325 MG TAB PO SCH (08:46)
[2022-06-23] MEDS: VALSARTAN 80 MG TAB PO SCH (08:46)
[2022-06-23] MEDS: LORazepam 0.5 MG TAB PO SCH ×2 (08:48→20:16)
[2022-06-23 08:55] LABS: INR 1.9 (0.9-1.1); Prothrombin Time 19.9 Seconds (9.0-12.0)
[2022-06-23 09:10] LABS: Albumin Globulin Ratio 1.2 (0.9-2); Albumin Level 3.3 gm/dl (3.4-5.0); BUN Creatinine Ratio 13.6 (10-20); Bilirubin,Total 1.3 mg/dl (0.2-1.0); Calcium 8.6 mg/dl (8.5-10.1); Est GFR (Non-African American) 53.5 ml/min; Globulin 2.8 gm/dl (2.5-4.0); Potassium 3.7 mmol/L (3.5-5.1); Total Protein 6.1 gm/dl (6.0-8.3)
[2022-06-23 10:28] LABS: Estimated Average Glucose 140 mg/dl; Hemoglobin A1C 6.5 % (4.5-5.6)
--- NOTE | 2022-06-23 10:32 | Orthopedic Consultation ---
Date of Consultation June 23, 2022 Assessment & Plan (1) Cellulitis: At this time I do suspect she has some thoracolumbar stenosis that could contribute to some of her limitation. Unfortunately she is extreme surgical risk for any major surgical intervention. At this time lets allow her to improve from her infection then reduce physical therapy for transfers. History of Present Illness Reason for Consultation: Right leg pain Attending Physician: Adam Sanabria MD History of Present Illness This is a 76-year-old female well-known to me who presents yesterday with worsening leg pain and lower extremity edema. She does live in locally. She lives with her son. She is able to stand with a walker but typically gets arou nd her home in a wheelchair. This morning she is more comfortable. She does state that she was experiencing right leg pain with weightbearing. This is new in onset. She does have a history of chronic nerve pain. She has a history of extensive back surgery. Allergies Allergy/AdvReac Type Severity Reaction Status Date / Time pramipexole AdvReac Intermediate hallucinati Verified 12/06/21 23:18 ons Home Medications Medication Instructions Recorded Confirmed Type atorvastatin 40 mg tablet (Lipitor) 80 mg PO HS 01/21/20 06/22/22 History calcitriol 0.5 mcg capsule 0.5 mcg PO QDL 01/21/20 06/22/22 History cholecalciferol (vitamin D3) 25 50 mcg PO BID 01/21/20 06/22/22 History mcg (1,000 unit) tablet (Vitamin D3) escitalopram oxalate 10 mg tablet 10 mg PO QAM 01/21/20 06/22/22 History (Lexapro) lorazepam 0.5 mg tablet (Ativan) 0.5 mg PO AMHS 01/21/20 06/22/22 History raloxifene 60 mg tablet 60 mg PO QDL 01/21/20 06/22/22 History docusate sodium 100 mg capsule 200 mg PO DAILY PRN Constipation 09/12/20 06/22/22 History (Col-Rite) polyethylene glycol 3350 17 gram 17 g PO UD PRN Constipation 09/14/20 06/22/22 History oral powder packet (Miralax) acetaminophen 325 mg tablet 650 mg PO Q4H PRN FEVER/PAIN 04/23/21 06/22/22 History (Tylenol) carbidopa 25 mg-levodopa 250 mg 1 tab PO QID 04/23/21 06/22/22 History tablet iron,carbonyl 65 mg-vitamin C 125 1 tab PO QPM 04/23/21 06/22/22 History mg tablet,delayed release (Vitron-C) metoprolol succinate 25 mg 25 mg PO QAM 04/23/21 06/22/22 History tablet,extended release 24 hr nystatin 100,000 unit/gram topical 1 applic topical TID 04/23/21 06/22/22 History powder warfarin 3 mg tablet 1.5 mg PO QPM 04/23/21 06/22/22 History baclofen 10 mg tablet 10 mg PO HS PRN Muscle Spasm 12/06/21 06/22/22 History clotrimazole 1 % topical cream 1 applic topical BID 12/06/21 06/22/22 History ferrous sulfate 325 mg (65 mg 325 mg PO DAILY 12/06/21 06/22/22 History iron) tablet gabapentin 100 mg capsule 100 mg PO TID 06/22/22 06/22/22 History valsartan 80 mg tablet 80 mg PO DAILY 06/22/22 06/22/22 History Patient History Medical History Acute UTI (urinary tract infection) Anxiety Atrial fibrillation paroxysmal on warfarin CKD (chronic kidney disease) Contusion of multiple sites Depression DM type 2 (diabetes mellitus, type 2) diet controlled Fall Fall from ground level Hyperlipidemia Hypertension Obesity Osteoarthritis Parkinsons disease Rhabdomyolysis Urinary incontinence Vertigo Surgical History History of cholecystectomy lap cholecystectomy: 01/26/20: Grade 1 view, MAC#3, ETT 7 at [facility] History of incision and drainage shoulder> PT UNSURE OF DETAILS Hx of breast biopsy LEFT Hx of colonoscopy Family History Mother Atrial fibrillation Father Myocardial infarction Social History Smoking Status: Never smoker Second Hand Exposure: No; Do You Dip or Chew Tobacco: No; Hx Alcohol Use: No Hx Substance Use: No Preferred Language: Iranian Communication Ability: Effective Cook Roast Required: No Beliefs That Will Affect Care: None marital status: / Current Living Situation: Alone Current Living Situation Comment: Son living with her att, but moving out Feels Safe at Home: Yes Safety Concerns: Feels Safe At This Time Assistive Devices: Glasses Physical Exam Physical Exam: On exam she is comfort this time. She is reasonable plantar fl exion dorsiflexion. Sensory is intact. There is appreciable lower extremity edema. Results & Data ([facility]) Vital Signs (Past 12 Hours) Vital Signs Temp Pulse Resp BP BP Pulse Ox O2 Del Method 06/23/22 08:00 37 C 66 20 173/92 H 94 Room Air 06/23/22 04:13 36.9 C 57 L 18 152/84 H 94 Room Air 06/22/22 23:00 36.8 C 53 L 20 157/89 H 92 Room Air
[2022-06-23] MEDS ORDERED: VALSARTAN 80 MG TAB PO SCH (11:30)
[2022-06-23] MEDS: CALCITRIOL 0.25 MCG CAPSULE PO SCH (12:20)
[2022-06-23] MEDS: RALOXIFENE HCL 60 MG TAB PO SCH (12:20)
[2022-06-23] MEDS ORDERED: hydrALAZINE HCL 20 MG/ML VIAL IV ONE (12:46)
--- NOTE | 2022-06-23 13:32 | Neurology Consultation ---
Date of Consultation June 23, 2022 Assessment & Plan (1) Parkinsons disease: (2) Myelopathy concurrent with and due to spinal stenosis of thoracic region: Plan This patient has been experiencing persistent lower extremity motor and sensory symptoms which are more likely than not related to her history of thoracolumbar spinal stenosis for which she has undergone multiple surgeries, most recently this past November. She has been seen again by Dr. Marcelino during this admission although it is unclear at this time if additional surgeries are necessary or can be safely recommended. There is no evidence of acute stroke on recently completed brain MRI. Additional evaluation for stroke as a potential cause of her lower extremity weakness is not necessary at this time. She should continue with atorvastatin. She should continue with warfarin in light of her history of atrial fibr illation. In terms of her Parkinson's disease, this condition has been present for over 14 years, she continues to follow regularly with a local [facility] neurology group and is prescribed Sinemet. She should continue with this medication at the current dosage. She had been on entacapone previously as an adjunctive medication. I see no reason to restart this medication or make any further adju stments to her Parkinson's disease treatment at this time. I do not have any further immediate recommendations for this patient from a neurological standpoint. She should continue to follow with the local [facility] neurology group for ongoing monitoring and management of her Parkinson's disease. I do not think her Parkinson's disease would be directly responsible for her lower extremity weakness or reported sensory disturbance. I do not think increasing her dosage of Sinemet would improve her ambulatory function. History of Present Illness Reason for Consultation: h/o PD, right leg weak Requesting Physician: Dr. Temple Attending Physician: Adam Sanabria MD History of Present Illness The patient is a 76-year-old female with a history of right jacqueline-Parkinson's disease with secondary generalization, present for over 14 years, has been following with the local [facility] neurology group, last seen 1 month ago. No changes were made in patient's Sinemet at that time. She had previously been on entacapone but weaned off of this medication. She does not experience orthostatic hypotension or hallucinations, does not have a significant dementia. She does endorse some mild difficulty with restless leg syndrome at times. Her Parkinson's has been slowly progressive for many years and is affected her ambulation. However, history also notable for degenerative lumbar spinal stenosis for which she has undergone multiple surgeries. She has been following with Dr. Marcelino at [facility] for myelopathy due to spinal stenosis of the thoracic region. She underwent most recent surgical treatment at [facility] this past November, with Dr. Marcelino, decompression and fusion from T11-L1. She had presented to the emergency department yesterday for further evaluation of weakness, right leg numbness from the ankle to the hip, similar symptoms on the left. These issues have been chronic and progressive. Given her progressive lower extremity symptoms she was admitted for further evaluation and management. She did have some stroke directed imaging, although again, her clinical presentation was more suggestive of spinal myelopathy. A CT of the h ead was negative for hemorrhage or acute process. A follow-up brain MRI was negative for acute infarct as well, there was evidence of mild chronic microvascular ischemic disease. No hydrocephalus. I independently reviewed these images. No abnormal restricted diffusion, no pathologic blooming artifact. Generalized atrophy noted as well as chronic microvascular ischemic change. Patient also had a lumbar spine MRI completed which revealed extensive postsurgical changes consistent with laminectomy and posterior fusion extending from T11-S1. Study was nondiagnostic, however, due to extensive metallic artifact. Patient was evaluated by Dr. Marcelino during this admission. It was felt that she has an element of thoracolumbar stenosis that could be contributing to her symptoms. She was not considered an appropriate surgical risk at this point in time, however. She is currently [facility] with a diagnosis of cellulitis and associated lower extremity edema, undergoing medical treatment. Allergies Allergy/AdvReac Type Severity Reaction Status Date / Time pramipexole AdvReac Intermediate hallucinati Verified 12/06/21 23:18 ons Home Medications Medication Instructions Recorded Confirmed Type atorvastatin 40 mg tablet (Lipitor) 80 mg PO HS 01/21/20 06/22/22 History calcitriol 0.5 mcg capsule 0.5 mcg PO QDL 01/21/20 06/22/22 History cholecalciferol (vitamin D3) 25 50 mcg PO BID 01/21/20 06/22/22 History mcg (1,000 unit) tablet (Vitamin D3) escitalopram oxalate 10 mg tablet 10 mg PO QAM 01/21/20 06/22/22 History (Lexapro) lorazepam 0.5 mg tablet (Ativan) 0.5 mg PO AMHS 01/21/20 06/22/22 History raloxifene 60 mg tablet 60 mg PO QDL 01/21/20 06/22/22 History docusate sodium 100 mg capsule 200 mg PO DAILY PRN Constipation 09/12/20 06/22/22 History (Col-Rite) polyethylene glycol 3350 17 gram 17 g PO UD PRN Constipation 09/14/20 06/22/22 History oral powder packet (Miralax) acetaminophen 325 mg tablet 650 mg PO Q4H PRN FEVER/PAIN 04/23/21 06/22/22 History (Tylenol) carbidopa 25 mg-levodopa 250 mg 1 tab PO QID 04/23/21 06/22/22 History tablet iron,carbonyl 65 mg-vitamin C 125 1 tab PO QPM 04/23/21 06/22/22 History mg tablet,delayed release (Vitron-C) metoprolol succinate 25 mg 25 mg PO QAM 04/23/21 06/22/22 History tablet,extended release 24 hr nystatin 100,000 unit/gram topical 1 applic topical TID 04/23/21 06/22/22 History powder warfarin 3 mg tablet 1.5 mg PO QPM 04/23/21 06/22/22 History baclofen 10 mg tablet 10 mg PO HS PRN Muscle Spasm 12/06/21 06/22/22 History clotrimazole 1 % topical cream 1 applic topical BID 12/06/21 06/22/22 History ferrous sulfate 325 mg (65 mg 325 mg PO DAILY 12/06/21 06/22/22 History iron) tablet gabapentin 100 mg capsule 100 mg PO TID 06/22/22 06/22/22 History valsartan 80 mg tablet 80 mg PO DAILY 06/22/22 06/22/22 History Patient History Medical History Acute UTI (urinary tract infection) Anxiety Atrial fibrillation paroxysmal on warfarin CKD (chronic kidney disease) Contusion of multiple sites Depression DM type 2 (diabetes mellitus, type 2) diet controlled Fall Fall from ground level Hyperlipidemia Hypertension Obesity Osteoarthritis Parkinsons disease Rhabdomyolysis Urinary incontinence Vertigo Surgical History History of cholecystectomy lap cholecystectomy: 01/26/20: Grade 1 view, MAC#3, ETT 7 at [facility] History of incision and drainage shoulder> PT UNSURE OF DETAILS Hx of breast biopsy LEFT Hx of colonoscopy Family History Mother Atrial fibrillation Father Myocardial infarction Social History Smoking Status: Never smoker Second Hand Exposure: No; Do You Dip or Chew Tobacco: No; Hx Alcohol Use: No Hx Substance Use: No Preferred Language: [place] Communication Ability: Effective Lease Administrator Required: No Beliefs That Will Affect Care: None marital status: / Current Living Situation: Alone Current Living Situation Comment: Son living with her att, but moving out Feels Safe at Home: Yes Safety Concerns: Feels Safe At This Time Assistive Devices: Glasses Review of Systems Review of Systems: All systems reviewed & are unremarkable except as noted in Subjective Exam (Neuro) Constitutional: well developed and well nourished Eyes: normal visual knutson by confrontation, PERRL and EOM intact bilaterally; no fundoscopic abnormality and no papilledema Cardiovascular: Vessels: normal carotid upstroke; no carotid bruit Neurologic: Oriented to:: Person, Place and Time Memory: Short Term Intact and Remote Intact Attention: Span Intact and Concentration Intact Speech Fluency: negative Dysarthria or Dysfluency Fund of Knowledge: Current Events, Past History and Vocabulary Cranial Nerves: Normal II, III, IV, , V, VII, VIII, IX, X, XI and XII Motor Strength: negative Normal Lower Extremities or Normal Upper Extremities Rigidity: Rigidity Muscle Bulk/Involuntary Movements: Rest Tremor (Arm) Sensation: Light Touch Intact and Proprioception Intact; negative Pain/Temperature Intact or Vibration Intact Coordination: Heel-Soto Abnormal; negative Finger-Nose Abnormal Deep Tendon Reflexes: Rt Triceps: 1+, Lt Triceps: 1+, Rt Biceps: 1+, Lt Biceps: 1+, Rt Brachioradialis: 1+, Lt Brachioradialis: 1+, Rt Patellar: 1+, Lt Patellar: 1+, Rt Ankle: 0 and Lt Ankle: 0 Special Tests: negative Babinski Present Details: Gait cannot be tested in the context of patient's current medical/neurological status. Patient is mildly bradykinetic, she exhibits a mild right upper extremity resting tremor. She has bilateral rigidity, right greater than left. Both legs are weak although right greater than left, she appears to have a mild right foot drop with mild weakness of right ankle dorsiflexion. Does not have a definitive dermatomal sensory loss. Results & Data ([facility]) Vital Signs (Past 12 Hours) Vital Signs Temp Pulse Resp BP BP Pulse Ox O2 Del Method 06/23/22 12:08 36.8 C 69 20 196/83 H 93 Room Air 06/23/22 11:33 Room Air 06/23/22 08:00 37 C 66 20 173/92 H 94 Room Air 06/23/22 04:13 36.9 C 57 L 18 152/84 H 94 Room Air Laboratory Results WBC 4.80, hemoglobin 13.2, hematocrit 41.3, platelet count 153, sodium 141, potassium 3.7, BUN 14, creatinine 1.03, glucose 89, hemoglobin A1c 6.5, calcium 8.6, AST 15, ALT 5, Diagnostic Findings CT of the head, brain MRI, and lumbar spine MRIs are as described in the history of present illness. I did independently review these images. Electrocardiogram reveals atrial fibrillation PG Care Time/CCT Total # of Minutes Spent Total Time Spent with Patient: Total time spent is greater than 50% in coordination of care (as documented) at patient's floor/unit and/or counseling patient: Coding Level of Care Code 80618 Initial Inpt Care Lvl 3 Diagnoses Parkinsons disease G20 Myelopathy concurrent with and due to spinal stenosis of thoracic region M48.04; G99.2
--- NOTE | 2022-06-23 14:39 | Electrocardiogram Report ---
Test Reason : Blood Pressure : / mmHG Vent. Rate : 063 BPM Atrial Rate : 394 BPM P-R Int : 000 ms QRS Dur : 088 ms QT Int : 442 ms P-R-T Axes : 000 031 002 degrees QTc Int : 452 ms Atrial fibrillation with a competing junctional pacemaker Low voltage QRS Cannot rule out Anterior infarct (cited on or before 23-JUN-2022) Abnormal ECG When compared with ECG of 22-JUN-2022 08:40, No significant change was found Confirmed by Kb Desouza ([id number]) on 06/23/2022 2:39:13 PM Referred By: Lori Morelos Confirmed By:Kb Desouza
--- NOTE | 2022-06-23 15:40 | Hospitalist Progress Note ---
Date of Service June 23, 2022 Assessment & Plan (1) Cellulitis: (2) Weakness: Plan: - [facility] - Afebrile and without wbc. Skin on BLE is erythematous and warm extending up to the mid mcghee region. Nails with onychomycosis and dry skin, poor nail hygiene. DM a contributor to infection. - IV vanc x 1 dose now, obtain MRSA swab, will downgrade if negative - Edema within the past 3 days likely due to acute infection +/- fluid retention. -Will obtain Echo 2 D to evaluate with hx of afib. Pt denies any shortness of breath or cardiac complaints. Denies orthopnea, sleeping flat with 1 pillow in bed. - Pt is on valsartan 80 mg daily, possible that this could cause worsening fluid retention so will hold - Pt missed AM meds today, will allow metoprolol succinate now, along with gapabentin for pain relief. Pt notes she does not normally take gabapentin at home but is willing to trial here in the hospital 06/23 Lower extremity edema, secondary cellulitis, possible valvular CHF exacerbation? Seems to be improving with ceftriaxone IV Continue to monitor Check BNP May need to give Lasix on a cautiously given moderate to severe valvular aortic stenosis on echo EF 60 to 65% Mild mitral regurgitation Mild tricuspid regurgitation Possible pneumonia chest x-ray Denies cough, shortness of breath Obtain CT chest (3) DM type 2 (diabetes mellitus, type 2): Plan: - Last A1C 6.0 from 2019, will repeat with am labs - ISS with accuchecks achs 06/23 BSG 90-112 (4) Atrial fibrillation: Plan: - echo as above - Rate controlled with metoprolol succinate - Continue coumadin, INR on admission was 2.2, follow am labs - Unlikely DVT with being therapeutic to high on coumadin with calf pain noted. Likely neuropathic pain worsened with edema. 06/23 Heart rate control INR 1.9, Coumadin 3 mg today (5) Hypertension: Plan: - Medications as above Blood pressure elevated Hydralazine as needed ordered Continue usual metoprolol, valsartan (6) Parkinsons disease: Plan: - Hx of such, walks with walker and uses wheelchair - PT/OT consults - Cont carbidopa levadopa - Fall precautions, easy to chew diet -Orthopedic surgery, neurologist consulted DVT PPx: scds, coumadin CODE: FULL code Dispo: From home, likely to remain in the hospital 1-2 days Admission and Anticipated Discharge Date Admission Date: June 22, 2022 Subjective Follow-up for cellulitis, bilateral lower extremity edema, etc Seen resting in bed, comfortable, not in distress States she feels improved compared to yesterday Still having significant pain but less Denies fevers or chills, shortness of breath, chest pain, palpitations, dizziness no other symptoms Review of Systems Review of Systems: all noted and negative except for above Physical Exam Physical Exam: General- oriented x 3, not in distress, speaks in sentences with no effort or accessory muscle use Eyes- anicteric Neck- no JVD Lungs- clear breath sounds bilaterally, no rales/wheezes Heart- normal rate, regular rhythm; no murmurs Abdomen- normal bowel sounds, nondistended, soft, nontender Extremities-grade 1 lower extremity edema, mild warmth, mild tenderness, mild erythema Neuro- alert, oriented x 3; no gross focal neurologic deficits Skin- warm & dry Results & Data Results & Data ([facility]) Vital Signs (Past 12 Hours) Vital Signs Temp Pulse Resp BP BP Pulse Ox O2 Del Method 06/23/22 12:08 36.8 C 69 20 196/83 H 93 Room Air 06/23/22 11:33 Room Air 06/23/22 08:00 37 C 66 20 173/92 H 94 Room Air 06/23/22 04:13 36.9 C 57 L 18 152/84 H 94 Room Air all noted and reviewed including below
[2022-06-23] MEDS ORDERED: WARFARIN SOD 3 MG TAB PO ONE (16:00)
[2022-06-23] MEDS: cefTRIAXone SODIUM 2,000 MG in DEXTROSE 5% AD-VAN 50 ML IV SCH (16:14)
[2022-06-23] MEDS: WARFARIN SOD 3 MG TAB PO SCH (16:20)
[2022-06-23] MEDS: hydrALAZINE HCL 20 MG/ML VIAL IV PRN (17:27)
[2022-06-23] MEDS: ACETAMINOPHEN 325 MG TAB PO PRN (19:15)
[2022-06-23] MEDS: ATORVASTATIN 40 MG TAB PO SCH (20:17)
--- NOTE | 2022-06-23 22:37 | CT Scan Report ---
CT SCAN OF THE CHEST WITHOUT IV CONTRAST CLINICAL HISTORY: Abnormal chest x-ray. COMPARISON STUDY: Chest x-ray dated 06/22/2022. TECHNIQUE: CT scan of the thorax was performed from the thoracic inlet to the upper abdomen. Images are reviewed in the axial, sagittal, and coronal planes. IV contrast was not administered for this ex amination as per the referring clinician. A dose lowering technique was utilized adhering to the kareen kana of DESMOND. CT DOSE: 465.35 mGy.cm FINDINGS: Thyroid: Imaged portions of the thyroid gland are normal in size and attenuation. Thoracic aorta: There is atherosclerotic calcification of the thoracic aorta, which is normal in toño daria and demonstrates standard 3-vessel arch anatomy. Heart: The heart is enlarged and without pericardial effusion. There are coronary artery calcificatio ns. There is significant attenuation of the cardiac blood pool as compared to the myocardium suggesti ng anemia. Lungs and pleural spaces: Evaluation of the lung parenchyma is modestly degraded by motion artifact. There are small pleural effusions with dependent atelectasis. There is no airspace consolidation typi nasrin for pneumonia. The trachea and central airways are clear. Mild intralobular septal thickening is noted. There are scattered calcified granulomas. Mediastinum: There are mildly enlarged and calcification containing mediastinal lymph nodes which pa sure up to 12 mm short axis. Neha: Not well assessed without IV contrast. Axillae: There is no axillary lymphadenopathy. Upper abdomen: A 1.6 cm cyst is incidentally noted in the right lobe of liver. Partially visualized u pper abdominal viscera is otherwise within normal limits. Skeletal structures: The skeletal structures are osteopenic. No lytic or blastic bony lesions are see n. Degenerative change and kyphoscoliosis is noted in the thoracic spine. Fusion hardware is partiall y visualized at the thoracolumbar junction. There is a subacute appearing right anterior 3rd rib frac ture. Soft tissues: A 13 mm sebaceous cyst is noted in the anterior chest wall on image #131. IMPRESSION: 1. There is no airspace consolidation typical for pneumonia. The abnormal finding on chest x-ray josey esponds to a subacute appearing right anterior 3rd rib fracture. Correlate for point tenderness. 2. Cardiomegaly. Intraoperative septal thickening could represent acute versus chronic congestive jolynn nge and clinical correlation will be required. 3. Small pleural effusions. 4. Additional findings as above. ACT 112: Negative or not required by law. Electronically signed by: Omar Hill M.D. 06/23/2022 10:34 PM
[2022-06-24 07:20] LABS: Hematocrit (blood only) 42.1 % (34.1-44.9); Hemoglobin 13.5 g/dl (12.0-16.0); Mean Corpuscular Hemoglobin 27.3 pg (25.0-34.0); Mean Corpuscular Hgb Conc 32.1 g/dL (32.0-36.0); Mean Corpuscular Volume 85.1 fL (80.0-100.0); Mean Platelet Volume 10.7 fL (9.4-12.3); Platelet Count 163 K/uL (130-400); RDW Coefficient of Variation 15.8 % (11.5-14.5); RDW Standard Deviation 48.4 fL (36.4-46.3); Red Blood Count 4.95 M/uL (3.93-5.22)
[2022-06-24 07:46] LABS: Albumin Globulin Ratio 1.1 (0.9-2); Albumin Level 3.1 gm/dl (3.4-5.0); BUN Creatinine Ratio 18.6 (10-20); Bilirubin,Total 1.1 mg/dl (0.2-1.0); Calcium 8.7 mg/dl (8.5-10.1); Creatinine Clr Calc Pharmacy 47.2 ml/min; Est GFR (African American) 55.4 ml/min; Est GFR (Non-African American) 47.8 ml/min; Globulin 2.8 gm/dl (2.5-4.0); Potassium 3.9 mmol/L (3.5-5.1); Total Protein 5.9 gm/dl (6.0-8.3)
[2022-06-24 07:58] LABS: Prothrombin Time 20.3 Seconds (9.0-12.0)
[2022-06-24] MEDS: ESCITALOPRAM OXALATE 10 MG TAB PO SCH (07:58)
[2022-06-24] MEDS: VALSARTAN 80 MG TAB PO SCH (07:58)
[2022-06-24] MEDS: GABAPENTIN 100 MG CAP PO SCH ×3 (07:59→20:09)
[2022-06-24] MEDS: CHOLECALCIFEROL 1,000 UNITS 25 MCG TAB PO SCH ×2 (07:59→20:10)
[2022-06-24] MEDS: FERROUS SULFATE 325 MG TAB PO SCH (07:59)
[2022-06-24] MEDS: METOPROLOL SUCC 25MG EXT REL TAB PO SCH (07:59)
[2022-06-24] MEDS: CARBIDOPA/LEVODOPA 25-250 1 EA TAB PO SCH ×4 (07:59→20:09)
[2022-06-24] MEDS: CLOTRIMAZOLE 1% CR 15 GM TUBE TOP SCH ×2 (08:00→20:10)
[2022-06-24] MEDS: ACETAMINOPHEN 325 MG TAB PO PRN (08:02)
[2022-06-24] MEDS: LORazepam 0.5 MG TAB PO SCH ×2 (08:03→20:09)
[2022-06-24] MEDS: INSULIN ASPART PER UNIT SC SCH ×4 (08:05→20:58)
[2022-06-24] MEDS ORDERED: FUROSEMIDE 40 MG TAB PO ONE (11:48)
--- NOTE | 2022-06-24 13:03 | XRay Report ---
XR knee RT 1 or 2V routine, XR knee LT 1 or 2V routine CLINICAL HISTORY: Bilateral knee pain. COMPARISON STUDY: Bilateral knees 07/09/2021. FINDINGS: The bones are osteopenic. No acute fracture or dislocation within the right or left knee. V ascular calcifications are noted. Small moderate bilateral knee effusions are noted. There is severe tricompartmental osteoarthritis within the bilateral knees. This is most pronounced at the medial com partments which demonstrates [id number] articulation. Ossific density medial to the left knee may r epresent a large marginal osteophytes are calcified disc fragment. Mild deformity at the left lateral tibial plateau is likely old. IMPRESSION: 1. Severe tricompartmental osteoarthritis which has progressed. 2. Small to moderate bilateral knee effusions. 3. Diffuse osteopenia. 4. No acute fractures. ACT 112: Negative or not required by law. Electronically signed by: Carlos Vera M.D. 06/24/2022 1:01 PM
--- NOTE | 2022-06-24 13:03 | XRay Report ---
XR knee RT 1 or 2V routine, XR knee LT 1 or 2V routine CLINICAL HISTORY: Bilateral knee pain. COMPARISON STUDY: Bilateral knees 07/09/2021. FINDINGS: The bones are osteopenic. No acute fracture or dislocation within the right or left knee. V ascular calcifications are noted. Small moderate bilateral knee effusions are noted. There is severe tricompartmental osteoarthritis within the bilateral knees. This is most pronounced at the medial com partments which demonstrates xeag-ki-jakh articulation. Ossific density medial to the left knee may r epresent a large marginal osteophytes are calcified disc fragment. Mild deformity at the left lateral tibial plateau is likely old. IMPRESSION: 1. Severe tricompartmental osteoarthritis which has progressed. 2. Small to moderate bilateral knee effusions. 3. Diffuse osteopenia. 4. No acute fractures. ACT 112: Negative or not required by law. Electronically signed by: Carlos Vera M.D. 06/24/2022 1:01 PM
[2022-06-24] MEDS: RALOXIFENE HCL 60 MG TAB PO SCH (13:24)
[2022-06-24] MEDS: CALCITRIOL 0.25 MCG CAPSULE PO SCH (13:24)
[2022-06-24] MEDS: WARFARIN SOD 0.5 MG TAB PO SCH (13:30)
--- NOTE | 2022-06-24 14:19 | Ultrasound Report ---
BILATERAL LOWER EXTREMITY VENOUS DOPPLER HISTORY: Lower extremity pain, edema, r/o dvt COMPARISON STUDY: None. FINDINGS: There is normal compressibility, flow, and augmentation within the bilateral lower extremit y deep venous systems. IMPRESSION: No DVT within the right or left lower extremity. ACT 112: Negative or not required by law. Electronically signed by: Carlos Vera M.D. 06/24/2022 2:17 PM
--- NOTE | 2022-06-24 15:44 | Hospitalist Progress Note ---
Date of Service June 24, 2022 Assessment & Plan (1) Cellulitis: (2) Weakness: Plan: - [facility] - Afebrile and without wbc. Skin on BLE is erythematous and warm extending up to the mid mcghee region. Nails with onychomycosis and dry skin, poor nail hygiene. DM a contributor to infection. - IV vanc x 1 dose now, obtain MRSA swab, will downgrade if negative - Edema within the past 3 days likely due to acute infection +/- fluid retention. -Will obtain Echo 2 D to evaluate with hx of afib. Pt denies any shortness of breath or cardiac complaints. Denies orthopnea, sleeping flat with 1 pillow in bed. - Pt is on valsartan 80 mg daily, possible that this could cause worsening fluid retention so will hold - Pt missed AM meds today, will allow metoprolol succinate now, along with gapabentin for pain relief. Pt notes she does not normally take gabapentin at home but is willing to trial here in the hospital Echo: EF 60 to 65% Mild mitral regurgitation Mild tricuspid regurgitation 06/24 Lower extremity edema, secondary cellulitis, possible valvular CHF exacerbation? erythema resolving with ceftriaxone IV still has significant edema, and also BL Knee pain R>L will give Lasix 20mg one dose very cautiously given severe Aortic stenosis will consult Cardiology BL knee xray: moderate effusion consult Ortho Possible pneumonia chest x-ray Denies cough, shortness of breath CT chest: 1. There is no airspace consolidation typical for pneumonia. The abnormal finding on chest x-ray corresponds to a subacute appearing right anterior 3rd rib fracture. Correlate for point tenderness. 2. Cardiomegaly. Intraoperative septal thickening could represent acute versus chronic congestive change and clinical correlation will be required. 3. Small pleural effusions.\ 4. Additional findings as above. (3) DM type 2 (diabetes mellitus, type 2): Plan: - Last A1C 6.0 from 2019, will repeat with am labs - ISS with accuchecks achs 06/24 BSG 89-94 (4) Atrial fibrillation: Plan: - echo as above - Rate controlled with metoprolol succinate - Continue coumadin, INR on admission was 2.2, follow am labs - Unlikely DVT with being therapeutic to high on coumadin with calf pain noted. Likely neuropathic pain worsened with edema. 06/24 Heart rate controlled INR 2.0 continue coumadin (5) Hypertension: Plan: - Medications as above Blood pressure elevated, from pain? continue pain control Hydralazine as needed ordered Continue usual metoprolol, valsartan Lasix 20mg one dose ordered today (6) Parkinsons disease: Plan: - Hx of such, walks with walker and uses wheelchair - PT/OT consults - Cont carbidopa levadopa - Fall precautions, easy to chew diet -Orthopedic surgery, neurologist consulted DVT PPx: scds, coumadin CODE: FULL code Dispo: PT OT eval in progress Admission and Anticipated Discharge Date Admission Date: June 22, 2022 Subjective ff up for lower ext edema, etc seen resting in bed, comfortable reports significant BL lower ext pain, also R>L knee pain no fever/chills no dyspnea, chest pain, palpitations, dizziness no other symptoms Review of Systems Review of Systems: all noted and negative except for above Physical Exam Physical Exam: General- oriented x 3, not in distress, speaks in sentences with no effort or accessory muscle use Eyes- anicteric Neck- no JVD Lungs- clear breath sounds bilaterally, no crackles/wheezing Heart- normal rate, regular rhythm; no murmurs Abdomen- normal bowel sounds, nondistended, soft, nontender Extremities- grade 1 lower ext edema no erythema/warmth mild tenderness Knees R- mild tenderness and warmth L- no tenderness and warmth Neuro- alert, oriented x 3; no gross focal neurologic deficits Skin- warm & dry Results & Data Results & Data ([facility]) Vital Signs (Past 12 Hours) Vital Signs Temp Pulse Pulse Resp BP Pulse Ox O2 Del Method 06/24/22 15:18 37.0 C 64 20 169/78 H 95 Room Air 06/24/22 11:43 36.8 C 62 19 165/94 H 95 Room Air 06/24/22 07:44 36.6 C 66 16 189/82 H 94 Room Air 06/24/22 07:25 58 L all noted and reviewed including below
[2022-06-24] MEDS: cefTRIAXone SODIUM 2,000 MG in DEXTROSE 5% AD-VAN 50 ML IV SCH (15:53)
[2022-06-24] MEDS: ACETAMINOPHEN 500 MG TAB PO SCH ×2 (16:05→23:14)
[2022-06-24] MEDS: hydrALAZINE HCL 20 MG/ML VIAL IV PRN (17:40)
[2022-06-24] MEDS: ATORVASTATIN 40 MG TAB PO SCH (20:09)
[2022-06-24] MEDS: BACLOFEN 10 MG TAB PO PRN (23:14)
[2022-06-25] MEDS: ACETAMINOPHEN 500 MG TAB PO SCH ×3 (07:51→23:26)
[2022-06-25] MEDS: CHOLECALCIFEROL 1,000 UNITS 25 MCG TAB PO SCH ×2 (07:52→20:45)
[2022-06-25] MEDS: CARBIDOPA/LEVODOPA 25-250 1 EA TAB PO SCH ×4 (07:52→20:45)
[2022-06-25] MEDS: ESCITALOPRAM OXALATE 10 MG TAB PO SCH (07:52)
[2022-06-25] MEDS: GABAPENTIN 100 MG CAP PO SCH ×3 (07:52→20:45)
[2022-06-25] MEDS: FERROUS SULFATE 325 MG TAB PO SCH (07:53)
[2022-06-25] MEDS: CLOTRIMAZOLE 1% CR 15 GM TUBE TOP SCH ×2 (07:53→23:25)
[2022-06-25] MEDS: VALSARTAN 80 MG TAB PO SCH (07:53)
[2022-06-25] MEDS: METOPROLOL SUCC 25MG EXT REL TAB PO SCH (07:53)
[2022-06-25] MEDS: INSULIN ASPART PER UNIT SC SCH ×4 (07:54→20:33)
[2022-06-25] MEDS: LORazepam 0.5 MG TAB PO SCH ×2 (07:58→20:45)
[2022-06-25 08:42] LABS: Hematocrit (blood only) 44.6 % (34.1-44.9); Hemoglobin 14.3 g/dl (12.0-16.0); Mean Corpuscular Hemoglobin 27.3 pg (25.0-34.0); Mean Corpuscular Hgb Conc 32.1 g/dL (32.0-36.0); Mean Corpuscular Volume 85.1 fL (80.0-100.0); Mean Platelet Volume 10.9 fL (9.4-12.3); Platelet Count 164 K/uL (130-400); RDW Coefficient of Variation 15.9 % (11.5-14.5); RDW Standard Deviation 49.5 fL (36.4-46.3); Red Blood Count 5.24 M/uL (3.93-5.22); White Blood Count 5.26 K/ul (4.8-10.8)
[2022-06-25 08:49] LABS: INR 2.1 (0.9-1.1); Prothrombin Time 21.2 Seconds (9.0-12.0)
[2022-06-25 09:03] LABS: Albumin Globulin Ratio 1.1 (0.9-2); Albumin Level 3.3 gm/dl (3.4-5.0); Bilirubin,Total 0.7 mg/dl (0.2-1.0); Calcium 8.7 mg/dl (8.5-10.1); Creatinine Clr Calc Pharmacy 51.3 ml/min; Est GFR (African American) 61.3 ml/min; Est GFR (Non-African American) 52.9 ml/min; Potassium 4.2 mmol/L (3.5-5.1); Total Protein 6.3 gm/dl (6.0-8.3)
[2022-06-25] MEDS: RALOXIFENE HCL 60 MG TAB PO SCH (12:04)
[2022-06-25] MEDS: CALCITRIOL 0.25 MCG CAPSULE PO SCH (12:05)
--- NOTE | 2022-06-25 12:24 | Cardiology Consultation ---
Date of Consultation June 25, 2022 Assessment & Plan (1) Weakness: (2) A-fib: (3) Hypertension: (4) Moderate aortic stenosis: Plan Patient is a 76-year-old female with permanent atrial fibrillation with good rate control and appropriate anticoagulation, hypertension, calcific aortic valve disease moderate with preserved LV systolic function admitted with signs and symptoms of weakness and lower extremity edema edema mild and has resolved following a single dose of oral furosemide Findings do not suggest acute cardiac decline. Would continue usual prehospital medications including metoprolol and valsartan as well as anticoagulation with warfarin Patient may require low-dose diuretic intermittently on discharge No sign of heart failure on exam, chest x-ray or CAT scan Moderately severe calcific aortic stenosis noted on echocardiogram as a relatively new finding. Patient to keep upcoming appointment with cardiology 07/12/2022 History of Present Illness Reason for Consultation: Edema Requesting Physician: Dr. Calix Attending Physician: Adam Snaabria MD History of Present Illness Patient is a 76-year-old female with ongoing cardiac issues which include 1. Chronic atrial fibrillation on anticoagulation with warfarin 2. Hypertension 3. Parkinsonism 4. Moderate aortic stenosis, calcific 5. CKD stage III 6. Chronic back pain with prior spinal fusion urgently November 2021 T11 L1 Patient is referred for evaluation after hospitalization on 06/22/2022 with symptoms of bilateral leg numbness right greater than left and mild pedal edema with associated lower extremity weakness. Patient's been treated for possible cellulitis with IV antibiotics and received a single dose of oral furosemide yesterday. She denies any prior history of congestive heart failure, rheumatic fever scarlet fever or heart murmur. Notes no syncope or near syncope. Has not had a significant problem with prior edema. No fevers chills currently. Edema has resolved since admission with above therapy No acute weight loss or gain. Appetite is generally good no difficulty take medications Does have difficulty with ambulation worse in the last week Allergies Allergy/AdvReac Type Severity Reaction Status Date / Time pramipexole AdvReac Intermediate hallucinati Verified 12/06/21 23:18 ons Home Medications Medication Instructions Recorded Confirmed Type atorvastatin 40 mg tablet (Lipitor) 80 mg PO HS 01/21/20 06/22/22 History calcitriol 0.5 mcg capsule 0.5 mcg PO QDL 01/21/20 06/22/22 History cholecalciferol (vitamin D3) 25 50 mcg PO BID 01/21/20 06/22/22 History mcg (1,000 unit) tablet (Vitamin D3) escitalopram oxalate 10 mg tablet 10 mg PO QAM 01/21/20 06/22/22 History (Lexapro) lorazepam 0.5 mg tablet (Ativan) 0.5 mg PO AMHS 01/21/20 06/22/22 History raloxifene 60 mg tablet 60 mg PO QDL 01/21/20 06/22/22 History docusate sodium 100 mg capsule 200 mg PO DAILY PRN Constipation 09/12/20 06/22/22 History (Col-Rite) polyethylene glycol 3350 17 gram 17 g PO UD PRN Constipation 09/14/20 06/22/22 History oral powder packet (Miralax) acetaminophen 325 mg tablet 650 mg PO Q4H PRN FEVER/PAIN 04/23/21 06/22/22 History (Tylenol) carbidopa 25 mg-levodopa 250 mg 1 tab PO QID 04/23/21 06/22/22 History tablet iron,carbonyl 65 mg-vitamin C 125 1 tab PO QPM 04/23/21 06/22/22 History mg tablet,delayed release (Vitron-C) metoprolol succinate 25 mg 25 mg PO QAM 04/23/21 06/22/22 History tablet,extended release 24 hr nystatin 100,000 unit/gram topical 1 applic topical TID 04/23/21 06/22/22 History powder warfarin 3 mg tablet 1.5 mg PO QPM 04/23/21 06/22/22 History baclofen 10 mg tablet 10 mg PO HS PRN Muscle Spasm 12/06/21 06/22/22 History clotrimazole 1 % topical cream 1 applic topical BID 12/06/21 06/22/22 History ferrous sulfate 325 mg (65 mg 325 mg PO DAILY 12/06/21 06/22/22 History iron) tablet gabapentin 100 mg capsule 100 mg PO TID 06/22/22 06/22/22 History valsartan 80 mg tablet 80 mg PO DAILY 06/22/22 06/22/22 History Patient History Medical History Acute UTI (urinary tract infection) Anxiety Atrial fibrillation paroxysmal on warfarin CKD (chronic kidney disease) Contusion of multiple sites Depression DM type 2 (diabetes mellitus, type 2) diet controlled Fall Fall from ground level Hyperlipidemia Hypertension Obesity Osteoarthritis Parkinsons disease Rhabdomyolysis Urinary incontinence Vertigo Surgical History History of cholecystectomy lap cholecystectomy: 01/26/20: Grade 1 view, MAC#3, ETT 7 at [facility] History of incision and drainage shoulder> PT UNSURE OF DETAILS Hx of breast biopsy LEFT Hx of colonoscopy Family History Mother Atrial fibrillation Father Myocardial infarction Social History Smoking Status: Never smoker Second Hand Exposure: No; Do You Dip or Chew Tobacco: No; Hx Alcohol Use: No Hx Substance Use: No Preferred Language: Luxembourgish Communication Ability: Effective Single End Sewer Required: No Beliefs That Will Affect Care: None marital status: / Current Living Situation: Alone Current Living Situation Comment: Son living with her att, but moving out Feels Safe at Home: Yes Safety Concerns: Feels Safe At This Time Assistive Devices: Glasses Review of Systems Review of Systems: All systems reviewed & are unremarkable except as noted in HPI & below Physical Exam Constitutional: WD/WN, vitals as above Eyes: PERRL, conjunctivae normal, anicteric sclerae ENMT: external ear and nose normal, oropharynx normal Neck: trachea midline, no thyromegaly Respiratory: normal respiratory effort, lungs clear to auscultation Cardiovascular: Rate/Rhythm: + irregularly irregular Heart Sounds: normal S1 and + murmur (Grade 2/6 to 3/6 systolic murmur, no diastolic) Vessels: no JVD Extremities: no edema Gastrointestinal (Abdomen): normal bowel sounds, soft, nontender, no hepatosplenomegaly Musculoskeletal: no cyanosis or clubbing, extremities motor strength 5/5 Results & Data ([facility]) Vital Signs (Past 12 Hours) Vital Signs Temp Pulse Pulse Resp BP Pulse Ox O2 Del Method 06/25/22 11:46 36.8 C 68 16 150/71 H 94 Room Air 06/25/22 10:46 Room Air 06/25/22 07:42 36.6 C 63 16 177/93 H 95 Room Air 06/25/22 07:10 55 L 06/25/22 04:04 37 C 64 18 148/81 H 92 Room Air Laboratory Results Laboratory Results - last 24 hr 06/24/22 06/24/22 06/25/22 16:27 20:55 07:29 WBC RBC Hgb Hct MCV MCH MCHC RDW Std Deviation RDW Coeff of Ratna Plt Count MPV PT INR Sodium Potassium Chloride Carbon Dioxide Anion Gap BUN Creatinine Est Cr Clr Drug Dosing Est GFR ( Amer) Est GFR (Non-Af Amer) BUN/Creatinine Ratio Glucose POC Glucose 150 H 113 H 95 Calcium Total Bilirubin AST ALT Alkaline Phosphatase Total Protein Albumin Globulin Albumin/Globulin Ratio 06/25/22 06/25/22 06/25/22 07:54 07:54 07:54 WBC 5.26 RBC 5.24 H Hgb 14.3 Hct 44.6 MCV 85.1 MCH 27.3 MCHC 32.1 RDW Std Deviation 49.5 H RDW Coeff of Ratna 15.9 H Plt Count 164 MPV 10.9 PT 21.2 H INR 2.1 H Sodium 138 Potassium 4.2 Chloride 103 Carbon Dioxide 31 Anion Gap 4 BUN 25 H Creatinine 1.04 Est Cr Clr Drug Dosing 51.3 Est GFR ( Amer) 61.3 Est GFR (Non-Af Amer) 52.9 BUN/Creatinine Ratio 24.0 H Glucose 100 H POC Glucose Calcium 8.7 Total Bilirubin 0.7 AST 15 ALT 4 L Alkaline Phosphatase 94 Total Protein 6.3 Albumin 3.3 L Globulin 3.0 Albumin/Globulin Ratio 1.1 06/25/22 11:15 WBC RBC Hgb Hct MCV MCH MCHC RDW Std Deviation RDW Coeff of Ratna Plt Count MPV PT INR Sodium Potassium Chloride Carbon Dioxide Anion Gap BUN Creatinine Est Cr Clr Drug Dosing Est GFR ( Amer) Est GFR (Non-Af Amer) BUN/Creatinine Ratio Glucose POC Glucose 93 Calcium Total Bilirubin AST ALT Alkaline Phosphatase Total Protein Albumin Globulin Albumin/Globulin Ratio (1) A-fib Atrial fibrillation type: longstanding persistent Qualified Code(s): I48.11 - Longstanding persistent atrial fibrillation
[2022-06-25] MEDS: cefTRIAXone SODIUM 2,000 MG in DEXTROSE 5% AD-VAN 50 ML IV SCH (16:14)
--- NOTE | 2022-06-25 17:49 | Hospitalist Progress Note ---
Date of Service June 25, 2022 Delayed entry Date of service noted Assessment & Plan (1) Cellulitis: (2) Weakness: Plan: Lower extremity edema, secondary cellulitis, possible valvular CHF exacerbation? UTI Per admitting service notes with addendum: - Afebrile and without wbc. Skin on BLE is erythematous and warm extending up to the mid [place] region. Nails with onychomycosis and dry skin, poor nail hygiene. DM a contributor to infection. - IV vanc x 1 dose now, obtain MRSA swab, will downgrade if negative - Edema within the past 3 days likely due to acute infection +/- fluid retention. -Will obtain Echo 2 D to evaluate with hx of afib. Pt denies any shortness of breath or cardiac complaints. Denies orthopnea, sleeping flat with 1 pillow in bed. - Pt is on valsartan 80 mg daily, possible that this could cause worsening fluid retention so will hold - Pt missed AM meds today, will allow metoprolol succinate now, along with gapabentin for pain relief. Pt notes she does not normally take gabapentin at home but is willing to trial here in the hospital Echo: EF 60 to 65% Moderate to severe valvular aortic stenosis Mild mitral regurgitation Mild tricuspid regurgitation 06/25 erythema resolving with ceftriaxone IV, continue antibiotics to complete at least 7-day course depending on Given Lasix 20mg one dose--> edema improved Patient has moderate to severe valvular aortic stenosis Cardiology consulted, no further diuretics commended BL knee xray: moderate effusion, osteoarthritis consulted Ortho, effusion likely secondary to osteoarthritis, no thoracentesis recommended Tylenol every 8 hours Urinary tract infection possibly causing weakness Urine culture: E. coli, sensitive to ceftriaxone Continue ceftriaxone per above Possible pneumonia chest x-ray Denies cough, shortness of breath CT chest: 1. There is no airspace consolidation typical for pneumonia. The abnormal finding on chest x-ray corresponds to a subacute appearing right anterior 3rd rib fracture. Correlate for point tenderness. 2. Cardiomegaly. Intraoperative septal thickening could represent acute versus chronic congestive change and clinical correlation will be required. 3. Small pleural effusions.\ 4. Additional findings as above. (3) DM type 2 (diabetes mellitus, type 2): Plan: - Last A1C 6.0 from 2019, will repeat with am labs - ISS with accuchecks achs 12/6 BSG at goal (4) Atrial fibrillation: Plan: - echo as above - Rate controlled with metoprolol succinate - Continue coumadin, INR on admission was 2.2, follow am labs - Unlikely DVT with being therapeutic to high on coumadin with calf pain noted. Likely neuropathic pain worsened with edema. 06/26 Heart rate controlled INR 1.8 continue coumadin (5) Hypertension: Plan: - Medications as above Blood pressure elevated, from pain? continue pain control Hydralazine as needed ordered Continue usual metoprolol, valsartan (6) Parkinsons disease: Plan: - Hx of such, walks with walker and uses wheelchair - PT/OT consults - Cont carbidopa levadopa - Fall precautions, easy to chew diet -Orthopedic surgery, neurologist consulted, no further intervention at this point DVT PPx: scds, coumadin CODE: FULL code Dispo: PT OT eval in progress Will likely need to transition to acute rehab or penitentiary facility when medically stable Admission and Anticipated Discharge Date Admission Date: June 22, 2022 Subjective Follow-up for leg edema, leg cellulitis, possible CHF, etc. Seen resting in bed, comfortable, not distressed States she still having bilateral knee pain Leg pain improving somewhat Still having difficulty ambulating No shortness of breath, chest pain, dizziness, palpitations no Other symptom Review of Systems Review of Systems: all noted and negative except for above Physical Exam Physical Exam: General- oriented x 3, not in distress, speaks in sentences with no effort or accessory muscle use Eyes- anicteric Neck- no JVD Lungs- clear breath sounds bilaterally Heart- normal rate, regular rhythm; no murmurs Abdomen- normal bowel sounds, nondistended, soft, nontender Extremities-no lower extremity edema, distal aspect with very mild erythema, mild tenderness Mild edema of the right knee, but no erythema/tenderness/warmth Neuro- alert, oriented x 3; no gross focal neurologic deficits Skin- warm & dry Results & Data Results & Data ([facility]) Vital Signs (Past 12 Hours) Vital Signs Temp Pulse Pulse Resp BP Pulse Ox O2 Del Method 06/25/22 16:31 65 06/25/22 15:10 37.1 C 70 16 148/84 H 93 Room Air 06/25/22 11:46 36.8 C 68 16 150/71 H 94 Room Air 06/25/22 10:46 Room Air 06/25/22 07:42 36.6 C 63 16 177/93 H 95 Room Air 06/25/22 07:10 55 L
[2022-06-25] MEDS: ATORVASTATIN 40 MG TAB PO SCH (20:46)
--- NOTE | 2022-06-26 08:07 | Orthopedic Consultation ---
Date of Consultation June 26, 2022 Assessment & Plan (1) Bilateral knee effusions: X-rays reviewed by myself and Dr. Huber's office. In discussing this patient with Cirilo Ann PA-C, Dr. Huber's PA, patient was scheduled for total knee arthroplasty several years ago however canceled the appointment. 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 Patient states that she had undergone multiple injections of the knees in the past. She states that over time the efficacy of the injections began to diminish and were not really helping that long. The knees do not appear to be infected and I believe that her mild to moderate effusions are note d due to her ongoing DJD. She does not examine as gouty arthropathy at this time. I do not believe an aspiration is warranted at this time. Her white count has been normal, and CRP on admission was 8.6. She has been afebrile during her stay. With her history of injections no longer being beneficial, I do not feel that injections of steroid would be warranted at this time. Consider lidocaine patches over the medial joint lines of the knee if okay with medicine service. Also consider diclofenac gel in the same areas if lidocaine patches not permitted. Patient with history of CKD stage III with current BUN and creatinine of 25 and 1.04. If allowable, consider short-term dosing of Celebrex 200 mg p.o. twice daily. PT/OT protocol if able. I will discuss this case further with Dr. Huber. In discussion with the patient, she can follow-up in the office in the near future to discuss the possibility of entertaining the thought of total knee arthroplasty in the future. Patient will need to undergo medical/cardiology clearance if she is a candidate. Thank you for this consult. History of Present Illness Reason for Consultation: Bilateral knee effusions Attending Physician: Adam Sanabria MD History of Present Illness 76 yo female with PMHx of A. fib on Coumadin, HTN, HLD, obesity with BMI 44.0, history of spinal surgery, CKD, Parkinson's disease, urinary incontinence, DM type IIwas admitted several days ago on 06/22/2022 for noted cellulitis of her lower extremities as well as UTI. Prior to patient's admission, she began having increased lower extremity swelling which she was trying to keep her legs elevated in her hospital bed at home. She began having increasing pain in her feet and some weakness in the right lower extremity compared to the left. Patient has had previous lumbar spine surgery by Dr. Marcelino in the past who is seen the patient recently during his stay. Please see his consult. Patient was found to have bilateral lower extremity cellulitis along with urinary tract infection. Patient states that she has had a history of arthritis in her knees. She feels that the physician that she has seen in the past was Dr. Huber from our group. Currently she states that her knees are feeling fine however x-rays were taken secondary to bilateral lower extremity discomfort and was found that she had DJD bilateral knees with noted mild to moderate effusions. She states t hat her pain in her right knee is worse than the left. Currently again, she states that her knees are feeling pretty good today. She finds that most of the time she is having pain is with going up and down steps. Patient uses a walker and/or wheelchair to get around her home and in the community. We have been asked to see her for her bilateral knee effusions. Allergies Allergy/AdvReac Type Severity Reaction Status Date / Time pramipexole AdvReac Intermediate hallucinati Verified 12/06/21 23:18 ons Home Medications Medication Instructions Recorded Confirmed Type atorvastatin 40 mg tablet (Lipitor) 80 mg PO HS 01/21/20 06/22/22 History calcitriol 0.5 mcg capsule 0.5 mcg PO QDL 01/21/20 06/22/22 History cholecalciferol (vitamin D3) 25 50 mcg PO BID 01/21/20 06/22/22 History mcg (1,000 unit) tablet (Vitamin D3) escitalopram oxalate 10 mg tablet 10 mg PO QAM 01/21/20 06/22/22 History (Lexapro) lorazepam 0.5 mg tablet (Ativan) 0.5 mg PO AMHS 01/21/20 06/22/22 History raloxifene 60 mg tablet 60 mg PO QDL 01/21/20 06/22/22 History docusate sodium 100 mg capsule 200 mg PO DAILY PRN Constipation 09/12/20 06/22/22 History (Col-Rite) polyethylene glycol 3350 17 gram 17 g PO UD PRN Constipation 09/14/20 06/22/22 History oral powder packet (Miralax) acetaminophen 325 mg tablet 650 mg PO Q4H PRN FEVER/PAIN 04/23/21 06/22/22 History (Tylenol) carbidopa 25 mg-levodopa 250 mg 1 tab PO QID 04/23/21 06/22/22 History tablet iron,carbonyl 65 mg-vitamin C 125 1 tab PO QPM 04/23/21 06/22/22 History mg tablet,delayed release (Vitron-C) metoprolol succinate 25 mg 25 mg PO QAM 04/23/21 06/22/22 History tablet,extended release 24 hr nystatin 100,000 unit/gram topical 1 applic topical TID 04/23/21 06/22/22 History powder warfarin 3 mg tablet 1.5 mg PO QPM 04/23/21 06/22/22 History baclofen 10 mg tablet 10 mg PO HS PRN Muscle Spasm 12/06/21 06/22/22 History clotrimazole 1 % topical cream 1 applic topical BID 12/06/21 06/22/22 History ferrous sulfate 325 mg (65 mg 325 mg PO DAILY 12/06/21 06/22/22 History iron) tablet gabapentin 100 mg capsule 100 mg PO TID 06/22/22 06/22/22 History valsartan 80 mg tablet 80 mg PO DAILY 06/22/22 06/22/22 History Patient History Medical History Acute UTI (urinary tract infection) Anxiety Atrial fibrillation paroxysmal on warfarin CKD (chronic kidney disease) Contusion of multiple sites Depression DM type 2 (diabetes mellitus, type 2) diet controlled Fall Fall from ground level Hyperlipidemia Hypertension Obesity Osteoarthritis Parkinsons disease Rhabdomyolysis Urinary incontinence Vertigo Surgical History History of cholecystectomy lap cholecystectomy: 01/26/20: Grade 1 view, MAC#3, ETT 7 at [facility] History of incision and drainage shoulder> PT UNSURE OF DETAILS Hx of breast biopsy LEFT Hx of colonoscopy Family History Mother Atrial fibrillation Father Myocardial infarction Social History Smoking Status: Never smoker Second Hand Exposure: No; Do You Dip or Chew Tobacco: No; Hx Alcohol Use: No Hx Substance Use: No Preferred Language: Salvadorean Communication Ability: Effective Round Cutter Operator Required: No Beliefs That Will Affect Care: None marital status: / Current Living Situation: Alone Current Living Situation Comment: Son living with her att, but moving out How many Children do You have: 1 Feels Safe at Home: Yes Safety Concerns: Feels Safe At This Time Assistive Devices: Bedside Commode, Walker and Wheelchair Physical Exam Physical Exam: Patient is a 76-year-old obese white female appears her stated age. She is alert and oriented x3. No acute distress. Pleasant and cooperative. On examination of her knees, right knee has a little bit more of a valgus deformity compared to the left. She states that the right knee does hurt more when she is up and ambulating. Both of her lower extremities are fairly large but her effusions bilaterally do not feel tense. Neither knee is hot to the touch. Again they are not overtly swollen. There is no erythema noted. I am able to take her through gentle range of motion passively of both right and left knees without increase in pain. She has some mild crepitus noted on the right compared to left. Currently I can take her from almost full extension bilaterally to about 70 to 80 degrees flexion. She does not seem uncomfortable during this time. She has some mild collateral laxity right greater than left and has noted increased pain bilaterally on the medial joint lines during examination. Lower extremities continue to have some residual cellulitis which is now clearing. Patient states that they look much better than when she was admitted. She also denotes decreased swelling of the lower extremities. She is able to move her ankles actively in dorsiflexion and plantarflexion without discomfort. Axial loading of the knees at this time does not cause discomfort. She states she has some mild hip discomfort during range of motion of the right hip compared to the left. She has some increased weakness of the right lower extremity compared to the left when trying to do a straight leg raise which she has had. She feels this was secondary to her low back issues in the past. This was addressed by Dr. Marcelino as noted in his consult. No gross motor or sensory loss seen at this time. Results & Data ([facility]) Vital Signs (Past 12 Hours) Vital Signs Temp Pulse Pulse Resp BP Pulse Ox O2 Del Method 06/26/22 03:25 64 18 169/101 H 94 Room Air 06/26/22 01:46 71 06/25/22 23:00 36.9 C 73 19 173/98 H 93 Room Air Laboratory Results Laboratory Results WBC 5.26 K/ul (4.8-10.8) 06/25/22 07:54 RBC 5.24 M/uL (3.93-5.22) H 06/25/22 07:54 Hgb 14.3 g/dl (12.0-16.0) 06/25/22 07:54 Hct 44.6 % (34.1-44.9) 06/25/22 07:54 MCV 85.1 fL (80.0-100.0) 06/25/22 07:54 MCH 27.3 pg (25.0-34.0) 06/25/22 07:54 MCHC 32.1 g/dL (32.0-36.0) 06/25/22 07:54 RDW Std Deviation 49.5 fL (36.4-46.3) H 06/25/22 07:54 RDW Coeff of Ratna 15.9 % (11.5-14.5) H 06/25/22 07:54 Plt Count 164 K/uL (130-400) 06/25/22 07:54 MPV 10.9 fL (9.4-12.3) 06/25/22 07:54 Immature Gran % (Auto) 0.2 % 06/22/22 08:49 Neut % (Auto) 64.0 % 06/22/22 08:49 Lymph % (Auto) 19.5 % 06/22/22 08:49 [place] % (Auto) 12.8 % 06/22/22 08:49 Eos % (Auto) 2.9 % 06/22/22 08:49 Baso % (Auto) 0.6 % 06/22/22 08:49 Neut # (Auto) 3.09 K/uL (1.4-6.5) 06/22/22 08:49 Lymph # (Auto) 0.94 K/uL (1.2-3.4) L 06/22/22 08:49 [place] # (Auto) 0.62 K/uL (0.24-0.82) 06/22/22 08:49 Eos # (Auto) 0.14 K/uL (0-0.50) 06/22/22 08:49 Baso # (Auto) 0.03 K/uL (0-0.2) 06/22/22 08:49 Immature Gran # (Auto) 0.01 K/uL (0.00-0.02) 06/22/22 08:49 PT 21.2 Seconds (9.0-12.0) H 06/25/22 07:54 INR 2.1 (0.9-1.1) H 06/25/22 07:54 Sodium 138 mmol/L (136-145) 06/25/22 07:54 Potassium 4.2 mmol/L (3.5-5.1) 06/25/22 07:54 Chloride 103 mmol/L (98-107) 06/25/22 07:54 Carbon Dioxide 31 mmol/L (21-32) 06/25/22 07:54 Anion Gap 4 (3-11) 06/25/22 07:54 BUN 25 mg/dl (6-23) H 06/25/22 07:54 Creatinine 1.04 mg/dl (0.6-1.2) 06/25/22 07:54 Est Cr Clr Drug Dosing 51.3 ml/min 06/25/22 07:54 Est GFR ( Amer) 61.3 ml/min 06/25/22 07:54 Est GFR (Non-Af Amer) 52.9 ml/min 06/25/22 07:54 BUN/Creatinine Ratio 24.0 (10-20) H 06/25/22 07:54 Glucose 100 mg/dl (70-99(Fasting)) H 06/25/22 07:54 POC Glucose 95 mg/dl (70-99) 06/26/22 07:45 Estimat Average Glucose 140 mg/dl 06/23/22 08:32 Hemoglobin A1c 6.5 % (4.5-5.6) H 06/23/22 08:32 Calcium 8.7 mg/dl (8.5-10.1) 06/25/22 07:54 Magnesium 1.8 mg/dl (1.7-2.4) 06/22/22 08:49 Total Bilirubin 0.7 mg/dl (0.2-1.0) 06/25/22 07:54 AST 15 U/L (13-39) 06/25/22 07:54 ALT 4 U/L (7-52) L 06/25/22 07:54 Alkaline Phosphatase 94 U/L (34-104) 06/25/22 07:54 Troponin I High Sens 8.6 pg/ml (0-14) 06/22/22 08:49 B-Natriuretic Peptide 406 pg/ml (0-100) H 06/23/22 15:45 Total Protein 6.3 gm/dl (6.0-8.3) 06/25/22 07:54 Albumin 3.3 gm/dl (3.4-5.0) L 06/25/22 07:54 Globulin 3.0 gm/dl (2.5-4.0) 06/25/22 07:54 Albumin/Globulin Ratio 1.1 (0.9-2) 06/25/22 07:54 TSH 2.135 uIu/ml (0.300-4.500) 06/22/22 08:49 Urine Color Yellow 06/23/22 05:20 Urine Appearance Cloudy (Clear) A 06/23/22 05:20 Urine pH 6.0 (4.5-7.5) 06/23/22 05:20 Ur Specific [place] 1.020 (1.000-1.030) 06/23/22 05:20 Urine Protein Trace (Negative) H 06/23/22 05:20 Urine Glucose (UA) Negative (Negative) 06/23/22 05:20 Urine Ketones Trace (Negative) H 06/23/22 05:20 Urine Blood 1+ (Negative) H 06/23/22 05:20 Urine Nitrite Positive (Negative) A 06/23/22 05:20 Urine Bilirubin Negative (Negative) 06/23/22 05:20 Urine Urobilinogen Negative (Negative) 06/23/22 05:20 Ur Leukocyte Esterase 3+ (Negative) H 06/23/22 05:20 Urine WBC (Auto) >30 /hpf (0-5) H 06/23/22 05:20 Urine RBC (Auto) 5-10 /hpf (0-4) H 06/23/22 05:20 U Hyaline Cast (Auto) 1-5 /lpf (0-5) 06/23/22 05:20 U Epithel Cells (Auto) 10-20 /lpf (0-5) H 06/23/22 05:20 Urine Bacteria (Auto) 2+ (Negative) H 06/23/22 05:20 Nasal Screen MRSA (PCR) Negative (Negative) 06/22/22 17:34 SARS-CoV-2, RNA, NAAT NEGATIVE (NEGATIVE) 06/22/22 08:49 Impressions Lumbar Spine MRI 06/22/22 13:51 MRI OF LUMBAR SPINE COMBO CLINICAL HISTORY: Right lower extremity weakness. COMPARISON STUDY: MRI of the lumbar spine dated 12/07/2021. CT lumbar spine dated 04/23/2021. TECHNIQUE: MRI of the lumbar spine is attempted utilizing various T1 and T2 sequ ences in the axial and sagittal planes. Contrast-enhanced sequences were acquired following the IV administration of 10.8 cc of Gadavist. The examination is severely degraded by susceptibility artifact from extensive metallic spinal hardware. This degrades diagnostic utility. FINDINGS: Vertebral body height and alignment are grossly maintained throughout the lumbar spine. There is extensive postsurgical change from laminectomy and posterior fusion throughout the lumbar spine. This extends from T11 to S1. Ventricular screws are present at all levels with the exception of L5. This severely degrades evaluation of the central canal and neural foramina which are not diagnostically assessed. The disc spaces are not diagnostically evaluated. There is marked fatty atrophy of the paraspinous musculature. Postsurgical surgical change is seen posterior to the thecal sac. The visualized sacrum appears intact. IMPRESSION: 1. Essentially nondiagnostic examination due to severe metallic artifact from extensive spinal hardware. The central canal and neural foramina cannot be diagnostically evaluated. 2. Vertebral body height and alignment are grossly maintained. Electronically signed by: Omar Hill M.D. 06/22/2022 5:18 PM Venous Doppler Study 06/24/22 11:37 BILATERAL LOWER EXTREMITY VENOUS DOPPLER HISTORY: Lower extremity pain, edema, r/o dvt COMPARISON STUDY: None. FINDINGS: There is normal compressibility, flow, and augmentation within the bilateral lower extremity deep venous systems. IMPRESSION: No DVT within the right or left lower extremity. ACT 112: Negative or not required by law. Electronically signed by: Carlos Vera M.D. 06/24/2022 2:17 PM Knee X-Ray 12/04/22 11:47 XR knee RT 1 or 2V routine, XR knee LT 1 or 2V routine CLINICAL HISTORY: Bilateral knee pain. COMPARISON STUDY: Bilateral knees 07/09/2021. FINDINGS: The bones are osteopenic. No acute fracture or dislocation within the right or left knee. Vascular calcifications are noted. Small moderate bilateral knee effusions are noted. There is severe tricompartmental osteoarthritis within the bilateral knees. This is most pronounced at the medial compartments which demonstrates [id number] articulation. Ossific density medial to the left knee may represent a large marginal osteophytes are calcified disc fragment. Mild deformity at the left lateral tibial plateau is likely old. IMPRESSION: 1. Severe tricompartmental osteoarthritis which has progressed. 2. Small to moderate bilateral knee effusions. 3. Diffuse osteopenia. 4. No acute fractures. ACT 112: Negative or not required by law. Electronically signed by: Carlos Vera M.D. 06/24/2022 1:01 PM
[2022-06-26] MEDS: ACETAMINOPHEN 500 MG TAB PO SCH ×2 (08:36→16:58)
[2022-06-26] MEDS: CLOTRIMAZOLE 1% CR 15 GM TUBE TOP SCH ×2 (08:36→21:16)
[2022-06-26] MEDS: LORazepam 0.5 MG TAB PO SCH ×2 (08:36→21:15)
[2022-06-26] MEDS: INSULIN ASPART PER UNIT SC SCH ×4 (08:36→21:09)
[2022-06-26] MEDS: CHOLECALCIFEROL 1,000 UNITS 25 MCG TAB PO SCH ×2 (08:37→21:16)
[2022-06-26] MEDS: GABAPENTIN 100 MG CAP PO SCH ×3 (08:37→21:15)
[2022-06-26] MEDS: CARBIDOPA/LEVODOPA 25-250 1 EA TAB PO SCH ×4 (08:37→21:16)
[2022-06-26] MEDS: FERROUS SULFATE 325 MG TAB PO SCH (08:38)
[2022-06-26] MEDS: VALSARTAN 80 MG TAB PO SCH (08:38)
[2022-06-26] MEDS: METOPROLOL SUCC 25MG EXT REL TAB PO SCH (08:38)
[2022-06-26] MEDS: ESCITALOPRAM OXALATE 10 MG TAB PO SCH (08:38)
[2022-06-26 09:00] LABS: INR 1.8 (0.9-1.1); Prothrombin Time 18.5 Seconds (9.0-12.0)
--- NOTE | 2022-06-26 10:39 | Cardiology Progress Note ---
Date of Service June 26, 2022 Assessment & Plan (1) Weakness: (2) A-fib: (3) Hypertension: (4) Moderate aortic stenosis: Plan Patient is a 76-year-old female with permanent atrial fibrillation with good rate control and appropriate anticoagulation, hypertension, calcific aortic valve disease moderate with preserved LV systolic function admitted with signs and symptoms of weakness and lower extremity edema edema mild and has resolved following a single dose of oral furosemide Would continue usual prehospital medications including metoprolol and valsartan as well as anticoagulation with warfarin Given her uncontrolled hypertension and intermittent edema, would recommend low dose furosemide 20 mg possibly // on discharge. Titrate as needed Would avoid amlodipine. continue metoprolol and valsartan No sign of heart failure on exam, chest x-ray or CAT scan Moderately severe calcific aortic stenosis noted on echocardiogram as a relatively new finding, will need outpatient echo possibly in 6 months Patient to keep upcoming appointment with cardiology 07/12/2022 at [facility]. Case discussed with Dr. Garcia Admission and Anticipated Discharge Date Admission Date: June 22, 2022 Supervising Physician Co-Signing Physician Notes Patient seen and examined, chart, medications, telemetry reviewed. No physical change from prior examinations Grade 2/6 to 3/6 systolic murmur consistent with patient's moderate aortic stenosis. No peripheral edema on exam Plan as above Subjective Patient resting in bed. Feeling well. Denies acute cardiac complaints. No chest pain or SOB. Edema improved from admission per patient. No orthopnea. No fever, cough, chills. BP remains elevated since admission. Review of Systems Review of Systems: All systems reviewed & are unremarkable except as noted in HPI & below Physical Exam Constitutional: WD/WN, vitals as above Eyes: PERRL, conjunctivae normal, anicteric sclerae ENMT: external ear and nose normal, oropharynx normal Neck: trachea midline, no thyromegaly Respiratory: normal respiratory effort, lungs clear to auscultation Cardiovascular: Rate/Rhythm: + irregularly irregular Heart Sounds: normal S1 and + murmur (Grade 2/6 to 3/6 systolic murmur, no diastolic) Vessels: no JVD Extremities: no edema Gastrointestinal (Abdomen): normal bowel sounds, soft, nontender, no hepatosplenomegaly Musculoskeletal: no cyanosis or clubbing, extremities motor strength 5/5 Results & Data ([facility]) Vital Signs (Past 12 Hours) Vital Signs Temp Pulse Pulse Resp BP Pulse Ox O2 Del Method 06/26/22 08:36 36.3 C L 63 18 180/92 H 93 Room Air 06/26/22 03:25 64 18 169/101 H 94 Room Air 06/26/22 01:46 71 06/25/22 23:00 36.9 C 73 19 173/98 H 93 Room Air (1) A-fib Atrial fibrillation type: longstanding persistent Qualified Code(s): I48.11 - Longstanding persistent atrial fibrillation
[2022-06-26] MEDS: FUROSEMIDE 20 MG TAB PO SCH (12:05)
[2022-06-26] MEDS: CALCITRIOL 0.25 MCG CAPSULE PO SCH (12:05)
[2022-06-26] MEDS: RALOXIFENE HCL 60 MG TAB PO SCH (12:05)
[2022-06-26] MEDS: cefTRIAXone SODIUM 2,000 MG in DEXTROSE 5% AD-VAN 50 ML IV SCH (15:00)
[2022-06-26] MEDS: WARFARIN SOD 3 MG TAB PO SCH (16:59)
--- NOTE | 2022-06-26 19:00 | Hospitalist Progress Note ---
Date of Service June 26, 2022 Assessment & Plan (1) Cellulitis: (2) Weakness: Plan: Lower extremity edema, secondary cellulitis, possible valvular CHF exacerbation? UTI Per admitting service notes with addendum: - Afebrile and without wbc. Skin on BLE is erythematous and warm extending up to the mid [place] region. Nails with onychomycosis and dry skin, poor nail hygiene. DM a contributor to infection. - IV vanc x 1 dose now, obtain MRSA swab, will downgrade if negative - Edema within the past 3 days likely due to acute infection +/- fluid retention. -Will obtain Echo 2 D to evaluate with hx of afib. Pt denies any shortness of breath or cardiac complaints. Denies orthopnea, sleeping flat with 1 pillow in bed. - Pt is on valsartan 80 mg daily, possible that this could cause worsening fluid retention so will hold - Pt missed AM meds today, will allow metoprolol succinate now, along with gapabentin for pain relief. Pt notes she does not normally take gabapentin at home but is willing to trial here in the hospital Echo: EF 60 to 65% Moderate to severe valvular aortic stenosis Mild mitral regurgitation Mild tricuspid regurgitation 06/26 erythema resolving with ceftriaxone IV, continue antibiotics to complete at least 7-day course depending on Given Lasix 20mg one dose--> edema improved Patient has moderate to severe valvular aortic stenosis Cardiology consulted, continue Lasix 20 mg p.o. daily Monitor closely BL knee xray: moderate effusion, osteoarthritis consulted Ortho, effusion likely secondary to osteoarthritis, no thoracentesis recommended Tylenol every 8 hours Urinary tract infection possibly causing weakness Urine culture: E. coli, sensitive to ceftriaxone Continue ceftriaxone per above Possible pneumonia chest x-ray Denies cough, shortness of breath CT chest: 1. There is no airspace consolidation typical for pneumonia. The abnormal finding on chest x-ray corresponds to a subacute appearing right anterior 3rd rib fracture. Correlate for point tenderness. 2. Cardiomegaly. Intraoperative septal thickening could represent acute versus chronic congestive change and clinical correlation will be required. 3. Small pleural effusions.\ 4. Additional findings as above. (3) DM type 2 (diabetes mellitus, type 2): Plan: - Last A1C 6.0 from 2019, will repeat with am labs - ISS with accuchecks achs 12 BSG at goal (4) Atrial fibrillation: Plan: - echo as above - Rate controlled with metoprolol succinate - Continue coumadin, INR on admission was 2.2, follow am labs - Unlikely DVT with being therapeutic to high on coumadin with calf pain noted. Likely neuropathic pain worsened with edema. 06/26 Heart rate controlled INR 1.8 continue coumadin (5) Hypertension: Plan: - Medications as above Blood pressure elevated, from pain? continue pain control Hydralazine as needed ordered Continue usual metoprolol, valsartan (6) Parkinsons disease: Plan: - Hx of such, walks with walker and uses wheelchair - PT/OT consults - Cont carbidopa levadopa - Fall precautions, easy to chew diet -Orthopedic surgery, neurologist consulted, no further intervention at this point DVT PPx: scds, coumadin CODE: FULL code Dispo: PT OT eval in progress Will likely need to transition to acute rehab or residential facility when medically stable Admission and Anticipated Discharge Date Admission Date: June 22, 2022 Subjective Follow-up for weakness, leg edema, leg cellulitis, valvular CHF, etc. Seen resting in bed, comfortable, not in distress States she feels that leg pain is improving gradually Still has some knee pain No fevers or chills No shortness of breath or chest pain Having difficulty ambulating No other symptom Review of Systems Review of Systems: all noted and negative except for above Physical Exam Physical Exam: General- oriented x 3, not in distress, speaks in sentences w ith no effort or accessory muscle use Eyes- anicteric Neck- no JVD Lungs- clear breath sounds bilaterally, no crackles or wheezing Heart- normal rate, regular rhythm; no murmurs Abdomen- normal bowel sounds, nondistended, soft, nontender Extremities-rate 1 lower extremity edema: No erythema/warmth/tenderness Right knee, mild edema, but no erythema/warmth/tenderness Left knee essentially normal Neuro- alert, oriented x 3; no gross focal neurologic deficits Skin- warm & dry Results & Data Results & Data ([facility]) Vital Signs (Past 12 Hours) Vital Signs Temp Pulse Pulse Resp BP Pulse Ox O2 Del Method 06/26/22 15:47 36.8 C 72 19 150/82 H 92 Room Air 06/26/22 14:19 77 06/26/22 12:54 36.5 C 62 18 184/100 H 95 Room Air 06/26/22 08:30 Room Air 06/26/22 08:36 36.3 C L 63 18 180/92 H 93 Room Air all noted and reviewed including below
[2022-06-26] MEDS: ATORVASTATIN 40 MG TAB PO SCH (21:16)
[2022-06-27] MEDS: ACETAMINOPHEN 500 MG TAB PO SCH ×3 (00:27→16:07)
--- NOTE | 2022-06-27 08:03 | Hospitalist Progress Note ---
Date of Service June 27, 2022 Assessment & Plan (1) Cellulitis: (2) Weakness: Plan: Lower extremity edema, secondary cellulitis, possible valvular CHF exacerbation? UTI Per admitting service notes with addendum: - Afebrile and without wbc. Skin on BLE is erythematous and warm extending up to the mid [place] region. Nails with onychomycosis and dry skin, poor nail hygiene. DM a contributor to infection. - IV vanc x 1 dose on admission - Edema within the past 3 days likely due to acute infection +/- fluid retention. - obtain Echo 2 D to evaluate with hx of afib. Pt denies any shortness of breath or cardiac complaints. Denies orthopnea, sleeping flat with 1 pillow in bed. Echo: EF 60 to 65% Moderate to severe valvular aortic stenosis Mild mitral regurgitation Mild tricuspid regurgitation 06/26 erythema resolving with ceftriaxone IV, continue antibiotics to complete at least 7-day course depending on Given Lasix 20mg one dose--> edema improved Patient has moderate to severe valvular aortic stenosis Cardiology consulted, continue Lasix 20 mg p.o. daily, follow up w/ cardiology as outpt 07/12/22 Monitor closely BL knee xray: moderate effusion, osteoarthritis consulted Ortho, effusion likely secondary to osteoarthritis, no aspiration recommended Tylenol every 8 hours Leg pain/ weakness - likely from thoracolumbar stenosis, Parkinson's , edema/ cellulitis - thoracolumbar stenosis - unfortunately not a good surg. candidate - cellulitis and edema mostly resolved - pt seen by neurology and Dr. Marcelino (ortho spine) - pt has hx of spinal surgeries - gabapentin started during this admission - may need to increase dose, and cont. other home meds - PT/OT - SNF vs rehab Urinary tract infection possibly causing weakness Urine culture: E. coli, sensitive to ceftriaxone Continue ceftriaxone per above - switch to PO Abx on DC Possible pneumonia chest x-ray but no pna on CT Denies cough, shortness of breath CT chest: 1. There is no airspace consolidation typical for pneumonia. The abnormal finding on chest x-ray corresponds to a subacute appearing right anterior 3rd rib fracture. Correlate for point tenderness. 2. Cardiomegaly. Intraoperative septal thickening could represent acute versus chronic congestive change and clinical correlation will be required. 3. Small pleural effusions.\ 4. Additional findings as above. (3) DM type 2 (diabetes mellitus, type 2): Plan: - Last A1C 6.0 from 2019, will repeat with am labs - ISS with accuchecks achs 12/ BSG at goal (4) Atrial fibrillation: Plan: - echo as above - Rate controlled with metoprolol succinate - Continue coumadin, INR on admission was 2.2, follow am labs - Unlikely DVT with being therapeutic to high on coumadin with calf pain noted. Likely neuropathic pain worsened with edema. -Doppler obtained - no DVT 06/26 Heart rate controlled INR 1.8 continue coumadin (5) Hypertension: Plan: - Medications as above Blood pressure elevated, from pain? continue pain control monitor BP Hydralazine as needed ordered Continue usual metoprolol, valsartan (6) Parkinsons disease: Plan: - Hx of such, walks with walker and uses wheelchair - PT/OT consults - Cont carbidopa levadopa - Fall precautions, easy to chew diet -Orthopedic surgery, neurologist consulted, no further intervention at this point DVT PPx: scds, coumadin CODE: FULL code Dispo: PT OT eval Plan to DC to acute rehab or jail facility Admission and Anticipated Discharge Date Admission Date: June 22, 2022 Subjective Follow-up for weakness, leg edema, leg cellulitis, valvular CHF, weakness Seen resting in bed, comfortable, not in distress Continues to have leg pain/ weakness, difficulty ambulating - but seems somewhat improving Erythema resolved, leg edema mostly resolved No fevers or chills No shortness of breath or chest pain No other symptom Review of Systems Review of Systems: All systems reviewed & are unremarkable except as noted in Subjective Physical Exam Physical Exam: General- oriented x 3, not in distress, speaks in sentences with no effort or accessory muscle use Eyes- anicteric Neck- no JVD Lungs- clear breath sounds bilaterally, no crackles or wheezing Heart- normal rate, regular rhythm; no murmurs Abdomen- normal bowel sounds, nondistended, soft, nontender Extremities- minimal lower extremity edema: No erythema/warmth/tenderness Right knee, mild edema, but no erythema/warmth/tenderness Left knee essentially normal Neuro- alert, oriented x 3; no gross focal neurologic deficits Skin- warm & dry Results & Data Results & Data ([facility]) Vital Signs (Past 12 Hours) Vital Signs Temp Pulse Pulse Resp BP Pulse Ox O2 Del Method 06/27/22 08:01 36.6 C 61 16 177/81 H 93 Room Air 06/27/22 07:53 Room Air 06/27/22 07:00 52 L 06/27/22 04:00 53 L 19 156/76 H 92 Room Air 06/27/22 05:01 36.9 C 06/27/22 00:24 51 L 06/26/22 23:00 36.9 C 55 L 18 139/73 92 Room Air Laboratory Results 06/27/22 06/27/22 06/27/22 Range/Units 11:46 09:00 09:00 PT 15.8 H (9.0-12.0) Seconds INR 1.5 H (0.9-1.1) Sodium 139 (136-145) mmol/L Potassium 4.3 (3.5-5.1) mmol/L Chloride 103 (98-107) mmol/L Carbon Dioxide 29 (21-32) mmol/L Anion Gap 7 (3-11) BUN 30 H (6-23) mg/dl Creatinine 1.13 (0.6-1.2) mg/dl Est Cr Clr Drug Dosing 47.6 ml/min Est GFR ( Amer) 55.4 ml/min Est GFR (Non-Af Amer) 47.8 ml/min BUN/Creatinine Ratio 26.5 H (10-20) Glucose 129 H (70-99(Fasting)) mg/dl POC Glucose 89 (70-99) mg/dl Calcium 8.8 (8.5-10.1) mg/dl Phosphorus 4.0 (2.5-4.9) mg/dl Magnesium 1.8 (1.7-2.4) mg/dl 06/27/22 06/26/22 06/26/22 Range/Units 07:36 20:14 16:34 PT (9.0-12.0) Seconds INR (0.9-1.1) Sodium (136-145) mmol/L Potassium (3.5-5.1) mmol/L Chloride (98-107) mmol/L Carbon Dioxide (21-32) mmol/L Anion Gap (3-11) BUN (6-23) mg/dl Creatinine (0.6-1.2) mg/dl Est Cr Clr Drug Dosing ml/min Est GFR ( Amer) ml/min Est GFR (Non-Af Amer) ml/min BUN/Creatinine Ratio (10-20) Glucose (70-99(Fasting)) mg/dl POC Glucose 93 98 113 H (70-99) mg/dl Calcium (8.5-10.1) mg/dl Phosphorus (2.5-4.9) mg/dl Magnesium (1.7-2.4) mg/dl Medications Administered Current Inpatient Medications Acetaminophen (Acetaminophen 500 Mg Tab) 1,000 mg PO Q8H [facility] Stop: 07/24/22 15:59 Last Admin: 06/27/22 00:27 Dose: 1,000 mg Atorvastatin Calcium (Atorvastatin 40 Mg Tab) 80 mg PO HS [facility] Stop: 07/22/22 20:59 Last Admin: 06/26/22 21:16 Dose: 80 mg Baclofen (Baclofen 10 Mg Tab) 10 mg PO HS PRN PRN Reason: Muscle Spasm Stop: 07/22/22 12:52 Last Admin: 06/24/22 23:14 Dose: 10 mg Calcitriol (Calcitriol 0.25 Mcg Capsule) 0.5 mcg PO QDL [facility] Stop: 07/23/22 11:29 Last Admin: 06/26/22 12:05 Dose: 0.5 mcg Carbidopa/Levodopa (Carbidopa/Levodopa 25-250 1 Ea Tab) 1 tab PO QID@0900,1200,1600,2100 [facility] Stop: 07/22/22 15:59 Last Admin: 06/26/22 21:16 Dose: 1 tab Clotrimazole (Clotrimazole 1% Cr 15 Gm Tube) 1 appln TOP BID [facility] Stop: 07/22/22 20:59 Last Admin: 06/26/22 21:16 Dose: Not Given Dextrose (Dextrose 50% 50 Ml Syringe) 25 - 50 ml IV UD PRN; Protocol PRN Reason: Hypoglycemia Protocol Stop: 07/22/22 12:52 Docusate Sodium (Docusate Sodium 100 Mg Cap) 200 mg PO DAILY PRN PRN Reason: Constipation Stop: 07/22/22 12:52 Escitalopram Oxalate (Escitalopram Oxalate 10 Mg Tab) 10 mg PO QAM [facility] Stop: 07/22/22 12:52 Last Admin: 06/26/22 08:38 Dose: 10 mg Ferrous Sulfate (Ferrous Sulfate 325 Mg Tab) 325 mg PO DAILY [facility] Stop: 07/23/22 08:59 Last Admin: 06/26/22 08:38 Dose: 325 mg Furosemide (Furosemide 20 Mg Tab) 20 mg PO [facility] Stop: 07/26/22 10:44 Last Admin: 06/26/22 12:05 Dose: 20 mg Gabapentin (Gabapentin 100 Mg Cap) 100 mg PO TID [facility] Stop: 07/22/22 13:59 Last Admin: 06/26/22 21:15 Dose: 100 mg Glucagon (Glucagon For Inj 1 Mg Vial) 1 mg SQ UD PRN; Protocol PRN Reason: Hypoglycemia Protocol Stop: 07/22/22 12:52 Glucose (Glucose 40% Gel 15 Gm Tube) 15 - 30 gm PO UD PRN; Protocol PRN Reason: Hypoglycemia Protocol Stop: 07/22/22 12:52 Glucose (Glucose 10 Tab/Tube) 4 - 8 tab PO UD PRN; Protocol PRN Reason: Hypoglycemia Treatment Stop: 07/22/22 12:52 Hydralazine HCl (Hydralazine Hcl 20 Mg/Ml Vial) 5 mg IV Q6H PRN PRN Reason: systolic bp > 160 Stop: 07/23/22 15:44 Last Admin: 06/24/22 17:40 Dose: 5 mg Ceftriaxone Sodium 2,000 mg/ (Dextrose) 70 mls @ 100 mls/hr IV Q24H [facility]; Protocol Stop: 06/29/22 14:14 Last Infusion: 06/26/22 15:42 Dose: Infused Insulin Aspart (Insulin Aspart Per Unit) 0 units SC [facility] Stop: 07/23/22 16:29 Last Admin: 06/26/22 21:09 Dose: Not Given Lorazepam (Lorazepam 0.5 Mg Tab) 0.5 mg PO [facility] Stop: 07/22/22 20:59 Last Admin: 06/26/22 21:15 Dose: 0.5 mg Metoprolol Succinate (Metoprolol Succ 25mg Ext Rel Tab) 25 mg PO [facility]; Protocol Stop: 07/23/22 08:59 Last Admin: 06/26/22 08:38 Dose: 25 mg Miscellaneous (Carbohydrates For Hypoglycemia ) 15 - 30 gm PO UD PRN PRN Reason: Hypoglycemia Protocol Stop: 07/22/22 12:52 Ondansetron HCl (Ondansetron Inj 2 Mg/Ml 2 Ml Vial) 4 mg IV Q4H PRN PRN Reason: Nausea And Vomiting Stop: 07/22/22 12:52 Polyethylene Glycol (Polyethylene (Miralax) 17 Gm Pack) 17 gm PO DAILY PRN PRN Reason: Constipation Stop: 07/22/22 12:52 Raloxifene HCl (Raloxifene Hcl 60 Mg Tab) 60 mg PO QDL [facility] Stop: 07/23/22 11:29 Last Admin: 06/26/22 12:05 Dose: 60 mg Valsartan (Valsartan 80 Mg Tab) 80 mg PO DAILY [facility]; Protocol Stop: 07/23/22 08:59 Last Admin: 06/26/22 08:38 Dose: 80 mg Vitamin D (Cholecalciferol 1,000 Units 25 Mcg Tab) 2,000 units PO BID [facility] Stop: 07/22/22 12:52 Last Admin: 06/26/22 21:16 Dose: 2,000 units Warfarin Sodium (Warfarin Sod 3 Mg Tab) 3 mg PO TuThSa@1600 [facility] Stop: 07/23/22 15:59 Last Admin: 06/26/22 16:59 Dose: 3 mg Warfarin Sodium (Warfarin Sod 0.5 Mg Tab) 1.5 mg PO SuWeFr@1600 [facility] Stop: 07/22/22 15:59 Last Admin: 06/24/22 13:30 Dose: Not Given
[2022-06-27] MEDS: CARBIDOPA/LEVODOPA 25-250 1 EA TAB PO SCH ×3 (08:29→16:07)
[2022-06-27] MEDS: CLOTRIMAZOLE 1% CR 15 GM TUBE TOP SCH (08:29)
[2022-06-27] MEDS: VALSARTAN 80 MG TAB PO SCH (08:30)
[2022-06-27] MEDS: GABAPENTIN 100 MG CAP PO SCH ×2 (08:30→13:58)
[2022-06-27] MEDS: FUROSEMIDE 20 MG TAB PO SCH (08:30)
[2022-06-27] MEDS: CHOLECALCIFEROL 1,000 UNITS 25 MCG TAB PO SCH (08:30)
[2022-06-27] MEDS: FERROUS SULFATE 325 MG TAB PO SCH (08:31)
[2022-06-27] MEDS: METOPROLOL SUCC 25MG EXT REL TAB PO SCH (08:31)
[2022-06-27] MEDS: ESCITALOPRAM OXALATE 10 MG TAB PO SCH (08:31)
[2022-06-27] MEDS: INSULIN ASPART PER UNIT SC SCH ×2 (08:34→12:10)
[2022-06-27] MEDS: LORazepam 0.5 MG TAB PO SCH (08:37)
--- NOTE | 2022-06-27 10:06 | Cardiology Progress Note ---
Date of Service June 27, 2022 Assessment & Plan (1) Weakness: (2) A-fib: (3) Hypertension: (4) Moderate aortic stenosis: Plan Patient is a 76-year-old female with permanent atrial fibrillation with good rate control and appropriate anticoagulation, hypertension, calcific aortic valve disease moderate with preserved LV systolic function admitted with signs and symptoms of weakness and lower extremity edema edema mild and has resolved following a single dose of oral furosemide. Small pleural effusions on CT scan. Low dose furosemide 20 mg daily initiated to aid with CHF in setting of moderate valvular heart disease. Would continue usual prehospital medications including metoprolol and valsartan as well as anticoagulation with warfarin Monitor BP. BP trends lower after AM meds. Would avoid amlodipine. continue metoprolol and valsartan and furosemide Moderately severe calcific aortic stenosis noted on echocardiogram as a relatively new finding, will need outpatient echo possibly in 6 months Patient to keep upcoming appointment with cardiology 07/12/2022 at [facility]. Case discussed with Dr. Garcia. Will sign off. Patient already has cardio f/u on 07/12 and will keep this appointment with Ivan Leblanc PA-C. Admission and Anticipated Discharge Date Admission Date: June 22, 2022 Supervising Physician Co-Signing Physician Notes Patient seen and examined, chart, telemetry reviewed. No cardiac concerns, no edema on exam. Will require diuretic dosing as noted Main complaint still leg weakness question back issue as a concern Will sign off at this time contact with Subjective Patient resting in bed comfortably. Primary complaint is ongoing leg p ain/weakness. No chest pain. SOB improved. No cough. edema improved. BP remains elevated this morning, prior to meds Review of Systems Review of Systems: All systems reviewed & are unremarkable except as noted in HPI & below Physical Exam Constitutional: WD/WN, vitals as above Eyes: PERRL, conjunctivae normal, anicteric sclerae ENMT: external ear and nose normal, oropharynx normal Neck: trachea midline, no thyromegaly Respiratory: normal respiratory effort, lungs clear to auscultation Cardiovascular: Rate/Rhythm: + irregularly irregular Heart Sounds: normal S1 and + murmur (Grade 2/6 to 3/6 systolic murmur, no diastolic) Vessels: no JVD Extremities: no edema Gastrointestinal (Abdomen): normal bowel sounds, soft, nontender, no hepatosplenomegaly Musculoskeletal: no cyanosis or clubbing, extremities motor strength 5/5 Results & Data ([facility]) Vital Signs (Past 12 Hours) Vital Signs Temp Pulse Pulse Resp BP Pulse Ox O2 Del Method 06/27/22 08:01 36.6 C 61 16 177/81 H 93 Room Air 06/27/22 07:53 Room Air 06/27/22 07:00 52 L 06/27/22 04:00 53 L 19 156/76 H 92 Room Air 06/27/22 05:01 36.9 C 06/27/22 00:24 51 L 06/26/22 23:00 36.9 C 55 L 18 139/73 92 Room Air Laboratory Results Intake and Output 06/26/22 06/27/22 06/27/22 22:59 06:59 14:59 Intake Total 70 / 545 475 / 545 Output Total 500 / 2525 1500 / 2525 Balance -430 / -1979 -102 / Intake: IV 70 / 70 cefTRIAXone SODIUM 2,000 mg In 70 / 70 Dextrose 5% Ad-Van 50 ml @ 100 mls/hr IV Q24H [facility] Rx#:[id number] Oral 475 / 475 Output: Urine 1300 / 1300 Urine Amount (Catheter) 500 / 1225 200 / 1225 External 500 / 1225 200 / 1225 Other: # Unmeasured Voids 1 Weight 97.5 kg Weight Measurement Method Built in [facility] Diagnostic Findings Telemetry reviewed: Persistent afib, controlled rates Medications Administered Current Inpatient Medications Acetaminophen (Acetaminophen 500 Mg Tab) 1,000 mg PO Q8H [facility] Stop: 07/24/22 15:59 Last Admin: 06/27/22 08:30 Dose: 1,000 mg Atorvastatin Calcium (Atorvastatin 40 Mg Tab) 80 mg PO HS [facility] Stop: 07/22/22 20:59 Last Admin: 06/26/22 21:16 Dose: 80 mg Baclofen (Baclofen 10 Mg Tab) 10 mg PO HS PRN PRN Reason: Muscle Spasm Stop: 07/22/22 12:52 Last Admin: 06/24/22 23:14 Dose: 10 mg Calcitriol (Calcitriol 0.25 Mcg Capsule) 0.5 mcg PO QDL [facility] Stop: 07/23/22 11:29 Last Admin: 06/26/22 12:05 Dose: 0.5 mcg Carbidopa/Levodopa (Carbidopa/Levodopa 25-250 1 Ea Tab) 1 tab PO QID@0900,1200,1600,2100 [facility] Stop: 07/22/22 15:59 Last Admin: 06/27/22 08:29 Dose: 1 tab Clotrimazole (Clotrimazole 1% Cr 15 Gm Tube) 1 appln TOP BID [facility] Stop: 07/22/22 20:59 Last Admin: 06/27/22 08:29 Dose: 1 appln Dextrose (Dextrose 50% 50 Ml Syringe) 25 - 50 ml IV UD PRN; Protocol PRN Reason: Hypoglycemia Protocol Stop: 07/22/22 12:52 Docusate Sodium (Docusate Sodium 100 Mg Cap) 200 mg PO DAILY PRN PRN Reason: Constipation Stop: 07/22/22 12:52 Escitalopram Oxalate (Escitalopram Oxalate 10 Mg Tab) 10 mg PO QAM [facility] Stop: 07/22/22 12:52 Last Admin: 06/27/22 08:31 Dose: 10 mg Ferrous Sulfate (Ferrous Sulfate 325 Mg Tab) 325 mg PO DAILY [facility] Stop: 07/23/22 08:59 Last Admin: 06/27/22 08:31 Dose: 325 mg Furosemide (Furosemide 20 Mg Tab) 20 mg PO QAM [facility] Stop: 07/26/22 10:44 Last Admin: 06/27/22 08:30 Dose: 20 mg Gabapentin (Gabapentin 100 Mg Cap) 100 mg PO TID [facility] Stop: 07/22/22 13:59 Last Admin: 06/27/22 08:30 Dose: 100 mg Glucagon (Glucagon For Inj 1 Mg Vial) 1 mg SQ UD PRN; Protocol PRN Reason: Hypoglycemia Protocol Stop: 07/22/22 12:52 Glucose (Glucose 40% Gel 15 Gm Tube) 15 - 30 gm PO UD PRN; Protocol PRN Reason: Hypoglycemia Protocol Stop: 07/22/22 12:52 Glucose (Glucose 10 Tab/Tube) 4 - 8 tab PO UD PRN; Protocol PRN Reason: Hypoglycemia Treatment Stop: 07/22/22 12:52 Hydralazine HCl (Hydralazine Hcl 20 Mg/Ml Vial) 5 mg IV Q6H PRN PRN Reason: systolic bp > 160 Stop: 07/23/22 15:44 Last Admin: 06/24/22 17:40 Dose: 5 mg Ceftriaxone Sodium 2,000 mg/ (Dextrose) 70 mls @ 100 mls/hr IV Q24H [facility]; Protocol Stop: 06/29/22 14:14 Last Infusion: 06/26/22 15:42 Dose: Infused Insulin Aspart (Insulin Aspart Per Unit) 0 units SC [facility] Stop: 07/23/22 16:29 Last Admin: 06/27/22 08:34 Dose: 6 units Lorazepam (Lorazepam 0.5 Mg Tab) 0.5 mg PO AMHS [facility] Stop: 07/22/22 20:59 Last Admin: 06/27/22 08:37 Dose: 0.5 mg Metoprolol Succinate (Metoprolol Succ 25mg Ext Rel Tab) 25 mg PO QAM [facility]; Protocol Stop: 07/23/22 08:59 Last Admin: 06/27/22 08:31 Dose: 25 mg Miscellaneous (Carbohydrates For Hypoglycemia ) 15 - 30 gm PO UD PRN PRN Reason: Hypoglycemia Protocol Stop: 07/22/22 12:52 Ondansetron HCl (Ondansetron Inj 2 Mg/Ml 2 Ml Vial) 4 mg IV Q4H PRN PRN Reason: Nausea And Vomiting Stop: 07/22/22 12:52 Polyethylene Glycol (Polyethylene (Miralax) 17 Gm Pack) 17 gm PO DAILY PRN PRN Reason: Constipation Stop: 07/22/22 12:52 Raloxifene HCl (Raloxifene Hcl 60 Mg Tab) 60 mg PO QDL [facility] Stop: 07/23/22 11:29 Last Admin: 06/26/22 12:05 Dose: 60 mg Valsartan (Valsartan 80 Mg Tab) 80 mg PO DAILY [facility]; Protocol Stop: 07/23/22 08:59 Last Admin: 06/27/22 08:30 Dose: 80 mg Vitamin D (Cholecalciferol 1,000 Units 25 Mcg Tab) 2,000 units PO BID [facility] Stop: 07/22/22 12:52 Last Admin: 06/27/22 08:30 Dose: 2,000 units Warfarin Sodium (Warfarin Sod 3 Mg Tab) 3 mg PO TuThSa@1600 [facility] Stop: 07/23/22 15:59 Last Admin: 06/26/22 16:59 Dose: 3 mg Warfarin Sodium (Warfarin Sod 0.5 Mg Tab) 1.5 mg PO SuWeFr@1600 [facility] Stop: 07/22/22 15:59 Last Admin: 06/24/22 13:30 Dose: Not Given (1) A-fib Atrial fibrillation type: longstanding persistent Qualified Code(s): I48.11 - Longstanding persistent atrial fibrillation
[2022-06-27 10:13] LABS: INR 1.5 (0.9-1.1); Prothrombin Time 15.8 Seconds (9.0-12.0)
[2022-06-27 10:17] LABS: BUN Creatinine Ratio 26.5 (10-20); Calcium 8.8 mg/dl (8.5-10.1); Creatinine Clr Calc Pharmacy 47.6 ml/min; Est GFR (African American) 55.4 ml/min; Est GFR (Non-African American) 47.8 ml/min; Magnesium 1.8 mg/dl (1.7-2.4); Potassium 4.3 mmol/L (3.5-5.1)
[2022-06-27] MEDS: RALOXIFENE HCL 60 MG TAB PO SCH (11:07)
[2022-06-27] MEDS: CALCITRIOL 0.25 MCG CAPSULE PO SCH (11:07)
[2022-06-27] MEDS: BACLOFEN 10 MG TAB PO PRN (11:21)
[2022-06-27] MEDS ORDERED: DICLOFENAC SOD 1% GEL 100 GM TUBE EXT PRN (12:35)
[2022-06-27] MEDS ORDERED: LIDOCAINE 5% 1 PATCH TD SCH (12:45)
--- NOTE | 2022-06-27 13:17 | Discharge Summary ---
Date of Service June 27, 2022 Admission HPI Per Admitting Provider This is a 76-year-old female with PMHx of Feng restrepo on Coumadin, HTN, HLD, obesity with BMI 44.0, history of spinal surgery, CKD, Parkinson's disease, urinary incontinence, DM type II who presents to the hospital with worsening pain and edema of her feet bilaterally for the last 3 days. She woke up this morning and noticed that she was slightly numb on her right hip, and had increased pain in her left thigh. She continues to have pain in her lower feet as well and has been attempting to sleep with her legs elevated as she has a hospital bed at home. She denies any other focal symptoms including slurred speech, confusion, other motor deficits or other sensory deficits. The right leg numbness is resolved at this point. She has no decreased sensation on right compared to left leg on exam. She also mentions that her INR was 2.5 yesterday, and she took a 3 mg Coumadin tablet last evening as she is regularly instructed to do so Saturday, , Saturday. She alternates dose with 1.5 mg on all other days. She lives at home with her son. Admission Exam Per Admitting Provider General: awake, alert, obese, BMI of 44.0 Head: Normocephalic, atraumatic ENT: PERRL, EOMI, no pharyngeal exudate, mucous membranes moist Chest: Clear to auscultation, on room air, no adventitious breath sounds Cardiac: Irregularly irregular, systolic murmur with radiation to the carotids, rate controlled, no JVD, normal peripheral pulses, good capillary refill Abdominal: NABS x 4 quadrants, soft, nondistended, nontender to palpation, no rebound or guarding Extremities: Right and left feet and ankles with peripheral edema and erythema, + warmth, no numbness to sensation of the right leg or the left, calfs tender to palpation bilaterally Psych: Normal mood and affect Neuro: AAO x 3, strength intact bilaterally and rated 3/5 in lower extremities, rated 5/5 in upper, no motor deficits, speech is clear, no peripheral sensory deficits Principal Diagnosis Leg pain- cellulitis, edema, weakness UTI Moderate , poss. CHF Hypertension Hx of Parkinson's, hx of thoracolumbar stenosis Discharge Exam General- oriented x 3, not in distress, speaks in sentences with no effort or accessory muscle use Eyes- anicteric Neck- no JVD Lungs- clear breath sounds bilaterally, no crackles or wheezing Heart- normal rate, regular rhythm; no murmurs Abdomen- normal bowel sounds, nondistended, soft, nontender Extremities- minimal lower extremity edema: No erythema/warmth/tenderness Right knee, mild edema, but no erythema/warmth/tenderness Left knee essentially normal Neuro- alert, oriented x 3; no gross focal neurologic deficits Skin- warm & dry Discharge Data Allergies Allergy/AdvReac Type Severity Reaction Status Date / Time pramipexole AdvReac Intermediate hallucinati Verified 12/06/21 23:18 ons Consultations 06/22/22 11:06 ED Decision to Admit Stat 06/23/22 08:00 Consult Neurology Routine Consult Orthopedic Surgery Routine 06/25/22 10:01 Consult Orthopedic Surgery Routine 06/25/22 10:34 Consult Cardiology Routine Ordered Studies 06/22/22 09:00 CT head/brain wo con Stat FINDINGS: Motion degraded exam. No acute intracranial hemorrhage, midline shift, intracranial mass, hydrocephalus, territorial ischemia or abnormal extra-axial collection. Age-related involutional changes. White matter hypodensities suggestive of chronic microvascular ischemic disease. The calvarium is intact. The paranasal sinuses, mastoid air cells, and middle ear cavities are clear. Prior bilateral lens repair. IMPRESSION: No acute intracranial abnormality. 06/22/22 13:51 MRI Brain [MR brain wo/w con] Urgent FINDINGS: Brain parenchyma: There is age-related involutional change noting mild patchy subcortical and periventricular microangiopathic disease. There is no hemorrhage or mass effect. There is no restricted diffusion to suggest acute ischemia. No enhancing mass lesion is identified on the postcontrast images. Christie-white matter differentiation is preserved. No extra-axial fluid collection is seen. The cerebellar tonsils are normal in configuration. Ventricles, sulci, and cisterns: Prominent secondary to involutional change. Pituitary and sella: Unremarkable. Intracranial vasculature: Normal flow voids are maintained at the skull base. Orbits: The bony orbits are grossly intact. Orbital contents are normal in appearance noting bilateral ocular lens implants. Sinuses and mastoids: Clear. Calvarium: Unremarkable. Cervical cord: Partially visualized cervical spinal cord is normal in morphology and signal intensity. IMPRESSION: No acute intracranial abnormality. MRI Spine [MR lumbar spine wo/w con] Stat FINDINGS: Vertebral body height and alignment are grossly maintained throughout the lumbar spine. There is extensive postsurgical change from laminectomy and posterior fusion throughout the lumbar spine. This extends from T11 to S1. Ventricular screws are present at all levels with the exception of L5. This severely degrades evaluation of the central canal and neural foramina which are not diagnostically assessed. The disc spaces are not diagnostically evaluated. There is marked fatty atrophy of the paraspinous musculature. Postsurgical surgical change is seen posterior to the thecal sac. The visualized sacrum appears intact. IMPRESSION: 1. Essentially nondiagnostic examination due to severe metallic artifact from extensive spinal hardware. The central canal and neural foramina cannot be diagnostically evaluated. 2. Vertebral body height and alignment are grossly maintained. 06/23/22 15:42 CT chest diagnostic wo con Routine FINDINGS: Thyroid: Imaged portions of the thyroid gland are normal in size and attenuation. Thoracic aorta: There is atherosclerotic calcification of the thoracic aorta, which is normal in caliber and demonstrates standard 3-vessel arch anatomy. Heart: The heart is enlarged and without pericardial effusion. There are coronary artery calcifications. There is significant attenuation of the cardiac blood pool as compared to the myocardium suggesting anemia. Lungs and pleural spaces: Evaluation of the lung parenchyma is modestly degraded by motion artifact. There are small pleural effusions with dependent atelectasis. There is no airspace consolidation typical for pneumonia. The trachea and central airways are clear. Mild intralobular septal thickening is noted. There are scattered calcified granulomas. Mediastinum: There are mildly enlarged and calcification containing mediastinal lymph nodes which measure up to 12 mm short axis. Neha: Not well assessed without IV contrast. Axillae: There is no axillary lymphadenopathy. Upper abdomen: A 1.6 cm cyst is incidentally noted in the right lobe of liver. Partially visualized upper abdominal viscera is otherwise within normal limits. Skeletal structures: The skeletal structures are osteopenic. No lytic or blastic bony lesions are seen. Degenerative change and kyphoscoliosis is noted in the thoracic spine. Fusion hardware is partially visualized at the thoracolumbar junction. There is a subacute appearing right anterior 3rd rib fracture. Soft tissues: A 13 mm sebaceous cyst is noted in the anterior chest wall on image #[id number]. IMPRESSION: 1. There is no airspace consolidation typical for pneumonia. The abnormal finding on chest x-ray corresponds to a subacute appearing right anterior 3rd rib fracture. Correlate for point tenderness. 2. Cardiomegaly. Intraoperative septal thickening could represent acute versus chronic congestive change and clinical correlation will be required. 3. Small pleural effusions. 4. Additional findings as above. 06/24/22 11:37 US venous doppler LE BI Urgent FINDINGS: There is normal compressibility, flow, and augmentation within the bilateral lower extremity deep venous systems. IMPRESSION: No DVT within the right or left lower extremity. Hospital Course (1) Cellulitis: (2) Weakness: Lower extremity edema, secondary cellulitis, possible valvular CHF exacerbation? UTI Per admitting service notes with addendum: - Afebrile and without wbc. Skin on BLE is erythematous and warm extending up to the mid [place] region. Nails with onychomycosis and dry skin, poor nail hygiene. DM a contributor to infection. - IV vanc x 1 dose on admission - Edema within the past 3 days likely due to acute infection +/- fluid retention. - obtain Echo 2 D to evaluate with hx of afib. Pt denies any shortness of breath or cardiac complaints. Denies orthopnea, sleeping flat with 1 pillow in bed. Echo: EF 60 to 65% Moderate to severe valvular aortic stenosis Mild mitral regurgitation Mild tricuspid regurgitation 06/26 erythema resolving with ceftriaxone IV, continue antibiotics to complete at least 7-day course depending on Given Lasix 20mg one dose--> edema improved Patient has moderate to severe valvular aortic stenosis Cardiology consulted, continue Lasix 20 mg p.o. daily, follow up w/ cardiology as outpt 07/12/22 Monitor closely BL knee xray: moderate effusion, osteoarthritis consulted Ortho, effusion likely secondary to osteoarthritis, no aspiration recommended Tylenol every 8 hours Leg pain/ weakness - likely from thoracolumbar stenosis, Parkinson's , edema/ cellulitis - thoracolumbar stenosis - unfortunately not a good surg. candidate - cellulitis and edema mostly resolved - pt seen by neurology and Dr. Marcelino (ortho spine) - pt has hx of spinal surgeries - gabapentin started during this admission - may need to increase dose, and cont. other home meds - PT/OT - SNF vs rehab Urinary tract infection possibly causing weakness Urine culture: E. coli, sensitive to ceftriaxone Continue ceftriaxone per above - switch to PO Abx on DC Possible pneumonia chest x-ray but no pna on CT Denies cough, shortness of breath CT chest: 1. There is no airspace consolidation typical for pneumonia. The abnormal finding on chest x-ray corresponds to a subacute appearing right anterior 3rd rib fracture. Correlate for point tenderness. 2. Cardiomegaly. Intraoperative septal thickening could represent acute versus chronic congestive change and clinical correlation will be required. 3. Small pleural effusions.\ 4. Additional findings as above. (3) DM type 2 (diabetes mellitus, type 2): - Last A1C 6.0 from 2019, will repeat with am labs - ISS with accuchecks achs 12/6 BSG at goal (4) Atrial fibrillation: - echo as above - Rate controlled with metoprolol succinate - Continue coumadin, INR on admission was 2.2, follow am labs - Unlikely DVT with being therapeutic to high on coumadin with calf pain noted. Likely neuropathic pain worsened with edema. -Doppler obtained - no DVT 06/26 Heart rate controlled INR 1.8 continue coumadin (5) Hypertension: - Medications as above Blood pressure elevated, from pain? continue pain control monitor BP Hydralazine as needed ordered Continue usual metoprolol, valsartan (6) Parkinsons disease: - Hx of such, walks with walker and uses wheelchair - PT/OT consults - Cont carbidopa levadopa - Fall precautions, easy to chew diet -Orthopedic surgery, neurologist consulted, no further intervention at this point DVT PPx: scds, coumadin Total Time Total Time Spent Total Time Spent (In Minutes): 40 Discharge Plan Discharge Items Patient Disposition: Transfer Inpatient Rehab Fac Reason For Visit: LEG PAIN, EDEMA Discharge Diagnosis: Leg pain- cellulitis, edema, weakness UTI Moderate , possible CHF Hypertension Hx of Parkinson's, hx of thoracolumbar stenosis Activity: Per Instructions section Non-emergency contact: Primary Care Provider, Stratigraphy Teacher and Neurologist Call non-emergency contact if: you have any medication questions and your symptoms worsen Follow-up/Referrals: Lori Morelos MD [Primary Care Provider] - Diet: Carb Consistent or DM2 and Heart Healthy Addtl Attending Provider Instructions: Follow-up with your primary care doctor, wind turbine machinist, and neurologist. Finish antibiotic treatment with cefdinir as prescribed. You were started here on Lasix/furosemide, take 20 mg daily, to help with leg swelling. Follow-up for your aortic stenosis with cardiology. The appointment was scheduled for you for July 12. In addition to your other medications, you were started on gabapentin to help with nerve pain. You were started on a low dose, this dose can be increased. Follow-up with your neurologist. For pain due to arthritis in your knees, you can use lidocaine patch, or diclofen gel. Please discuss with your primary care provider at your next visit, how often you use diclofenac gel. Addtl Senior Strategy Analyst Provider Instructions: Call your Primary Care doctor if any of the following symptoms or problems start or get worse: * Shortness of breath or difficulty breathing * Wake up at night short of breath * Chest pain * Cough * Swelling of your hands, feet, or legs * More fatigued or tired with your normal activity * Palpitations - sudden fast heart beats WEIGHT * Weigh yourself every morning after using the bathroom. * Use the same scale. * Wear the same amount of clothing. * Write your weight down on a chart. * Call your Primary Care doctor if you gain more than 2-3 pounds in 1-2 days. MEDICATIONS * Use this discharge instruction sheet for medication instructions. * Take your medications at the time your doctor ordered. * Do not skip a dose of your medicines. * If you miss a dose of medicine, take it as soon as possible, but DO NOT DOUBLE A DOSE. * Read your medicine information when you get home. * Know all of the side effects of your medicine. If in doubt, ask your pharmacist * Call your Primary Care doctor's office if you have any side effects. * Be sure all of your doctors know what medicine and herbs you take (including cold, flu, and herbal medicine). Take the following with you to your follow-up doctor appointments: * Weight Chart * Medication List * List of questions Do not drink excessive alcohol, beer or wine. Pending Studies at Discharge: No Stand-Alone Forms: My [facility] Skilled Items Patient informed of condition?: Yes DNR: No Discharge Level of Care: Acute rehab Communicable Disease: No Discharge Prognosis: Stable Lines: None Urinary Catheter: No Medications and DC Order Prescriptions: New lidocaine 5 % Adhesive Patch,Medicated 1 patch transdermal QAM Qty: 15 0RF furosemide 20 mg Tablet 20 mg PO QAM Qty: 30 0RF diclofenac sodium [Voltaren Arthritis Pain] 1 % Gel 2 g EXT DAILY PRN (Reason: knee pain) Qty: 100 0RF acetaminophen [Tylenol Extra Strength] 500 mg Tablet 1,000 mg PO Q8H PRN (Reason: pain) Qty: 20 0RF cefdinir 300 mg capsule 300 mg PO BID 3 Days Qty: 6 0RF Continued docusate sodium [Col-Rite] 100 mg capsule 200 mg PO DAILY PRN (Reason: Constipation) atorvastatin [Lipitor] 40 mg Tablet 80 mg PO HS lorazepam [Ativan] 0.5 mg Tablet 0.5 mg PO AMHS calcitriol 0.5 mcg Capsule 0.5 mcg PO QDL raloxifene 60 mg Tablet 60 mg PO QDL escitalopram oxalate [Lexapro] 10 mg Tablet 10 mg PO QAM cholecalciferol (vitamin D3) [Vitamin D3] 25 mcg (1,000 unit) Tablet 50 mcg PO BID polyethylene glycol 3350 [Miralax] 17 gram powder in packet 17 g PO UD PRN (Reason: Constipation) acetaminophen [Tylenol] 325 mg Tablet 650 mg PO Q4H PRN (Reason: FEVER/PAIN) carbidopa-levodopa 25-250 mg tablet 1 tab PO QID Rx Instructions: TAKES AT 0900, 1200, 1600 & 2100. metoprolol succinate 25 mg tablet extended release 24 hr 25 mg PO QAM nystatin 100,000 unit/gram powder 1 applic TOPICAL TID Rx Instructions: APPLY UNDER BREASTS. Vitron-C 65 mg iron- 125 mg Tablet,Delayed Release (Dr/Ec) 1 tab PO QPM warfarin 3 mg tablet 1.5 mg PO QPM Rx Instructions: or as directed by coumadin clinic clotrimazole 1 % cream 1 applic TOPICAL BID Rx Instructions: ordered 12/04/21 take for 14 days to abdomen baclofen 10 mg tablet 10 mg PO HS PRN (Reason: Muscle Spasm) ferrous sulfate 325 mg (65 mg iron) Tablet 325 mg PO DAILY valsartan 80 mg tablet 80 mg PO DAILY gabapentin 100 mg capsule 100 mg PO TID Discharge Orders: Discharge Order (Routine); Ordered 06/27/22 Ordered By: Anurag Reveles/Other Patient Handouts: Managing Type 2 Diabetes Admission Data Admit Date/Time: 06/22/22 11:36 Attending Provider: Anurag Mendosa Admit Provider: Annie Dowling Primary Care Provider: Lori Morelos Other Providers: Rah Temple ; Alejandro Francis ; Rogelio Torres ; Dotty Rene ; Aretha Herrera ; Kahlil Conway ; Aretha Platt ; Trevor Jackson ; Adelina Mesa ; Darion Mariee ; Lalitha Christopher ; Hiral Mari ; Kahlil Johnson ; Yehuda Marcelino ; Annie Dowling ; Aydin Dimas ; Franky Garcia ; [facility] ; Adam Sanabria.
[2022-06-27] MEDS: cefTRIAXone SODIUM 2,000 MG in DEXTROSE 5% AD-VAN 50 ML IV SCH (14:00)
[2022-06-27] MEDS: WARFARIN SOD 0.5 MG TAB PO SCH (16:07)
== END 2022-06-27 16:51 | DRG 603 ==
LOC: ED 08:29 → SUATTDRO 11:36 → EDINP 11:36 → 2W 20:08